=== PATIENT | female | born 1985 | race Caucasian/White ===

== ENCOUNTER 2023-03-08 17:51 | Emergency (ER) | payer OTHER, SELFPAY ==
[2023-03-08] VITALS (7 sets, daily range): BP systolic 127–161; BP diastolic 77–92; PULSE 65–108; RESP 12–22; TEMP 36.6; O2SAT 96–100; BMI 24.3
--- NOTE | 2023-03-08 18:16 | CT_ITS ---
The [address] [address] Patient Name: FELISA MADDEN MRN: [id number] date: 1985 Sex: F Assigned Patient Location: ER Current Patient Location: ED.MAIN Accession/Order Number: [id number] Exam Date: 03/08/2023 18:22 Report Date: 03/08/2023 19:12 At the request of: SUMMER QUIÑONES Procedure: CT head/brain wo con EXAMINATION: CT head/brain wo con, 03/08/2023 6:22 PM EDT HISTORY: Head injury COMPARISON: None. TECHNIQUE: CT scan of the head was performed without IV contrast. CT dose reduction technique was used, including Automated Exposure Control. FINDINGS: BRAIN PARENCHYMA/CSF SPACES: Ventricles are normal in size for age. There is an hypodense to isodense extra-axial collection along the left temporal parietal lobes measuring up to 6.5 mm in thickness compatible with subdural hematoma. This appears to be acute to subacute in age. There is mild mass effect with approximately 3 mm of midline shift to the right. PARANASAL SINUSES: Clear. SKULL BASE AND CALVARIUM: There is a fracture involving the right temporal parietal calvarium without displacement (series 3, image 22). EXTRACRANIAL SOFT TISSUES: Normal. CT/CT head/brain wo con IMPRESSION: Acute to subacute subdural hemorrhage along the left temporal and parietal lobes with mild mass effect. Approximately 3 mm of midline shift to the right. Fracture involving the right temporoparietal calvarium without displacement. Critical results were NOTIFIED by TELEPHONE BY Dr. Richard Stiles MD to Alivia PINA At 03/08/2023 7:10 PM EDT. Electronically authenticated by: RICHARD STILES Date: 03/08/2023 19:12
--- NOTE | 2023-03-08 18:17 | ED.FALL1 ---
Documented by User: Daniel Miller 04/08/23 10:36 HPI - Fall General Chief Complaint: Fall Stated Complaint: FALL Time Seen by Provider: 03/08/23 17:57 Source: patient Mode of arrival: Wheelchair Limitations: no limitations History of Present Illness HPI Narrative: patient was putting away dishes when she became dizzy and fell, striking the right side of her scalp against a cabinet. This occurred around noon today. She had headache initially but no LOC. She began dry-heaving around 4pm and the headache worsened so she came to the ED for evaluation. She has photophobia and some nausea. On February 13, the patient was jumping over a rope [facility] the [facility] and her foot caught and she fell forward and down several steps, hitting her head and sustaining a skull fracture. She was life-flighted to [facility] and stayed there until February 22, when she was discharged to a rehab facility. She just got released March 04. Related Data Home Medications Medication Instructions Recorded Confirmed acetaminophen 500 mg tablet 1,000 mg PO TID 03/08/23 03/08/23 albuterol sulfate 90 mcg/actuation 2 inh inhalation Q4H PRN shortness 03/08/23 03/08/23 aerosol inhaler of breath or wheezing dextroamphetamine-amphetamine 30 30 mg PO BID 03/08/23 03/08/23 mg tablet melatonin 5 mg tablet 5 mg PO .hs 03/08/23 03/08/23 methocarbamol 500 mg tablet 500 mg PO Q6H PRN spasms 03/08/23 03/08/23 sertraline 100 mg tablet 100 mg PO Q24H 03/08/23 03/08/23 tramadol 50 mg tablet 50 mg PO Q6H PRN pain 03/08/23 03/08/23 Allergies Allergy/AdvReac Type Severity Reaction Status Date / Time No Known Drug Allergies Allergy Verified 03/08/23 18:04 Exam Narrative Exam Narrative: Nurses note and vital signs reviewed and patient is not hypoxic. afebrile General: The patient appears well and in no apparent distress. Patient is resting comfortably on cart. GCS = 15. Skin: Warm, dry, no pallor noted. Head: Tenderness to the right frontal and parietal scalp. The remainder of the scalp and face are normocephalic, atraumatic Neck: Supple, trachea mid-line. Full ROM and no midline cervical spinal tenderness. Paracervical soft tissue tenderness noted. Eyes: PERRLA, EOMI ENT: TMs clear, no hemotympanum detected, no blood in posterior oropharynx Cardiovascular: Regular Rate and Rhythm Respiratory: Patient is in no distress, no accessory muscle use, lungs are clear to auscultation, no wheezing, rales or rhonchi Back: No thoracic or lumbar tenderness to palpation. Musculoskeletal: no sign of long bone fracture. Moves all four extremities in all modalities with 5/5 strength. Neurological: A&O x4, normal equal cabinet mounter strength, normal finger to nose, normal speech, normal coordination, normal motor, normal sensory. Psychiatric: Cooperative Constitutional Vital Signs, click to edit/add: Last Vital Signs Temp 98 F 03/08/23 17:59 Pulse 67 03/08/23 22:00 Resp 14 03/08/23 22:00 BP 127/77 H 03/08/23 23:00 Pulse Ox 96 03/08/23 22:00 O2 Del Method Room Air 03/08/23 17:59 Course Vital Signs Vital signs: Vital Signs Temperature 98 F 03/08/23 17:59 Pulse Rate 88 03/08/23 17:59 Respiratory Rate 18 03/08/23 17:59 Blood Pressure 161/85 H 03/08/23 17:59 Pulse Oximetry 98 03/08/23 17:59 Oxygen Delivery Method Room Air 03/08/23 17:59 Temperature 98 F 03/08/23 17:59 Pulse Rate 67 03/08/23 22:00 Respiratory Rate 14 03/08/23 22:00 Blood Pressure 127/77 H 03/08/23 23:00 Pulse Oximetry 96 03/08/23 22:00 Oxygen Delivery Method Room Air 03/08/23 17:59 MDM - Fall MDM Narrative Medical decision making narrative: Patient given ODT Zofran and sent for CT head without contrast. Result is currently pending. Patient signed out to Dr Ross at shift change to review the radiologist's reading and determine appropriate disposition. Lab Data Labs: Lab Results 03/08/23 Range/Units 19:40 WBC 7.3 (4.0-11.0) 10^3/uL RBC 4.24 (4.20-5.40) 10^6/uL Hgb 12.2 (12.0-16.0) g/dL Hct 38.5 (36.0-48.0) % MCV 90.8 (81.0-99.0) fL MCH 28.8 (26.7-34.0) pg MCHC 31.7 (29.9-35.2) g/dL RDW 13.2 (11.0-15.0) % Plt Count 411 (150-450) 10^3/uL MPV 8.9 L (9.5-13.5) fL Neut % (Auto) 74.3 (43.0-75.0) % Lymph % (Auto) 21.4 (20.5-60.0) % Banks % (Auto) 3.4 (1.7-12.0) % Eos % (Auto) 0.5 L (0.9-7.0) % Baso % (Auto) 0.3 (0.2-2.0) % Neut # (Auto) 5.4 (1.4-6.5) 10^3/uL Lymph # (Auto) 1.6 (1.2-3.8) 10^3/uL Banks # (Auto) 0.3 (0.3-0.8) 10^3/uL Eos # (Auto) 0.0 (0.0-0.7) 10^3/uL Baso # (Auto) 0.0 (0.0-0.1) 10^3/uL Abs Immat Gran (auto) 0.01 (0.00-0.03) 10^3/uL Imm/Tot Granulo (auto) 0.1 (0.0-0.5) % Sodium 140 (136-145) mmol/L Potassium 3.7 (3.5-5.1) mmol/L Chloride 105 (98-107) mmol/L Carbon Dioxide 25.3 (21.0-32.0) mmol/L Anion Gap 13.4 BUN 8.0 (7.0-18.0) mg/dL Creatinine 0.72 (0.55-1.02) mg/dL Est GFR ( Amer) >60 (>=60) Est GFR (Non-Af Amer) >60 (>=60) BUN/Creatinine Ratio 11.1 Glucose 116 H (74-106) mg/dL Calcium 9.1 (8.5-10.1) mg/dL Serum HCG, Qual Negative (NEGATIVE) Discharge Plan Discharge Chief Complaint: Fall Clinical Impression: Head injury, Acute subdural hematoma Patient Disposition: [facility] Discharge Location: [facility] Mode of Transportation: EMS Discharge Date/Time: 03/08/23 23:29 Documented by User: Lc Ross MD 03/08/23 21:38 HPI - Fall General Chief Complaint: Fall Stated Complaint: FALL Time Seen by Provider: 03/08/23 17:57 Related Data Home Medications Medication Instructions Recorded Confirmed acetaminophen 500 mg tablet 1,000 mg PO TID 03/08/23 03/08/23 albuterol sulfate 90 mcg/actuation 2 inh inhalation Q4H PRN shortness 03/08/23 03/08/23 aerosol inhaler of breath or wheezing dextroamphetamine-amphetamine 30 30 mg PO BID 03/08/23 03/08/23 mg tablet melatonin 5 mg tablet 5 mg PO .hs 03/08/23 03/08/23 methocarbamol 500 mg tablet 500 mg PO Q6H PRN spasms 03/08/23 03/08/23 sertraline 100 mg tablet 100 mg PO Q24H 03/08/23 03/08/23 tramadol 50 mg tablet 50 mg PO Q6H PRN pain 03/08/23 03/08/23 Allergies Allergy/AdvReac Type Severity Reaction Status Date / Time No Known Drug Allergies Allergy Verified 03/08/23 18:04 Exam Constitutional Vital Signs, click to edit/add: Last Vital Signs Temp 98 F 03/08/23 17:59 Pulse 67 03/08/23 22:00 Resp 14 03/08/23 22:00 BP 127/77 H 03/08/23 23:00 Pulse Ox 96 03/08/23 22:00 O2 Del Method Room Air 03/08/23 17:59 Course Vital Signs Vital signs: Vital Signs Temperature 98 F 03/08/23 17:59 Pulse Rate 88 03/08/23 17:59 Respiratory Rate 18 03/08/23 17:59 Blood Pressure 161/85 H 03/08/23 17:59 Pulse Oximetry 98 03/08/23 17:59 Oxygen Delivery Method Room Air 03/08/23 17:59 Temperature 98 F 03/08/23 17:59 Pulse Rate 67 03/08/23 22:00 Respiratory Rate 14 03/08/23 22:00 Blood Pressure 127/77 H 03/08/23 23:00 Pulse Oximetry 96 03/08/23 22:00 Oxygen Delivery Method Room Air 03/08/23 17:59 MDM - Fall MDM Narrative Medical decision making narrative: Patient given ODT Zofran and sent for CT head without contrast. Result is currently pending. Patient signed out to Dr Ross at shift change to review the radiologist's reading and determine appropriate disposition. Care transferred at change of shift. CT pending. CT today with findings of a acute to Subacute subdural hemorrhage along the left temporal and parietal lobes with mild mass effect. Fracture involving the right temporoparietal calvarium without displacement Patient states with her first injury bleeding and fracture were on the right. No past left sided bleed. patient treated with zofran and the nausea is better. Still has headache and photophobia. [facility] Trauma team paged. patient accepted for transfer to [facility]. Discussed with Trauma surgeon Dr Moffett and with ER physician Dr Andrade. Patient informed of the plan. Given dose of Fentanyl fo rher headace complaint Lab Data Labs: Lab Results 03/08/23 Range/Units 19:40 WBC 7.3 (4.0-11.0) 10^3/uL RBC 4.24 (4.20-5.40) 10^6/uL Hgb 12.2 (12.0-16.0) g/dL Hct 38.5 (36.0-48.0) % MCV 90.8 (81.0-99.0) fL MCH 28.8 (26.7-34.0) pg MCHC 31.7 (29.9-35.2) g/dL RDW 13.2 (11.0-15.0) % Plt Count 411 (150-450) 10^3/uL MPV 8.9 L (9.5-13.5) fL Neut % (Auto) 74.3 (43.0-75.0) % Lymph % (Auto) 21.4 (20.5-60.0) % Banks % (Auto) 3.4 (1.7-12.0) % Eos % (Auto) 0.5 L (0.9-7.0) % Baso % (Auto) 0.3 (0.2-2.0) % Neut # (Auto) 5.4 (1.4-6.5) 10^3/uL Lymph # (Auto) 1.6 (1.2-3.8) 10^3/uL Banks # (Auto) 0.3 (0.3-0.8) 10^3/uL Eos # (Auto) 0.0 (0.0-0.7) 10^3/uL Baso # (Auto) 0.0 (0.0-0.1) 10^3/uL Abs Immat Gran (auto) 0.01 (0.00-0.03) 10^3/uL Imm/Tot Granulo (auto) 0.1 (0.0-0.5) % Sodium 140 (136-145) mmol/L Potassium 3.7 (3.5-5.1) mmol/L Chloride 105 (98-107) mmol/L Carbon Dioxide 25.3 (21.0-32.0) mmol/L Anion Gap 13.4 BUN 8.0 (7.0-18.0) mg/dL Creatinine 0.72 (0.55-1.02) mg/dL Est GFR ( Amer) >60 (>=60) Est GFR (Non-Af Amer) >60 (>=60) BUN/Creatinine Ratio 11.1 Glucose 116 H (74-106) mg/dL Calcium 9.1 (8.5-10.1) mg/dL Serum HCG, Qual Negative (NEGATIVE) Discharge Plan Discharge Chief Complaint: Fall Clinical Impression: Head injury, Acute subdural hematoma Patient Disposition: [facility] Discharge Location: [facility] Mode of Transportation: EMS Discharge Date/Time: 03/08/23 23:29
[2023-03-08] MEDS: ONDANSETRON 4 MG RAPDIS TABLET SL (18:23)
[2023-03-08 19:54] LABS: Basophils Percent Auto 0.3 % (0.2-2.0); Eosinophils Percent Auto 0.5 % (0.9-7.0); Hematocrit 38.5 % (36.0-48.0); Hemoglobin 12.2 g/dL (12.0-16.0); Immature Granulocytes Abs Auto 0.01 10^3/uL (0.00-0.03); Immature Granulocytes Pct Auto 0.1 % (0.0-0.5); Lymphocytes Absolute Auto 1.6 10^3/uL (1.2-3.8); Lymphocytes Percent Auto 21.4 % (20.5-60.0); Mean Corpuscular HGB Conc 31.7 g/dL (29.9-35.2); Mean Corpuscular Hemoglobin 28.8 pg (26.7-34.0); Mean Corpuscular Volume 90.8 fL (81.0-99.0); Mean Platelet Volume 8.9 fL (9.5-13.5); Monocytes Absolute Auto 0.3 10^3/uL (0.3-0.8); Monocytes Percent Auto 3.4 % (1.7-12.0); Neutrophils Absolute Auto 5.4 10^3/uL (1.4-6.5); Neutrophils Percent Auto 74.3 % (43.0-75.0); Platelet Count 411 10^3/uL (150-450); Red Blood Count 4.24 10^6/uL (4.20-5.40); Red Cell Distribution Width 13.2 % (11.0-15.0); White Blood Count 7.3 10^3/uL (4.0-11.0)
[2023-03-08 20:06] LABS: Anion Gap 13.4; BUN Creatinine Ratio 11.1; Calcium 9.1 mg/dL (8.5-10.1); Carbon Dioxide 25.3 mmol/L (21.0-32.0); Chloride 105 mmol/L (98-107); Estimated GFR (African America >60 (>=60); Estimated GFR (Non-African Ame >60 (>=60); Glucose 116 mg/dL (74-106); Potassium 3.7 mmol/L (3.5-5.1); Sodium 140 mmol/L (136-145)
[2023-03-08 20:07] LABS: HCG Qualitative NEGATIVE (NEGATIVE)
[2023-03-08] MEDS: FENTANYL CITRATE/PF 100 MCG/2 ML VIAL 50 MCG IV (20:38)
== END 2023-03-08 23:29 | disposition short-term general hospital (02) ==
PROVIDERS: Emergency Provider Internal Medicine
DX: S06.5X0A Traumatic subdural hemorrhage without loss of consciousness, initial encounter (principal); W19.XXXA Unspecified fall, initial encounter; Z79.899 Other long term (current) drug therapy
CPT/HCPCS: 36415; 70450; 80048; 84703; 85025; 96374; 99285

== ENCOUNTER 2023-03-18 09:45 | Outpatient (RCR) | payer OTHER, SELFPAY | END 2023-05-25 16:21 | disposition home or self-care (01) | LOC: PT 09:45 | DX: S06.5X0D Traumatic subdural hemorrhage without loss of consciousness, subsequent encounter (principal); S02.91XD Unspecified fracture of skull, subsequent encounter for fracture with routine healing; R41.841 Cognitive communication deficit | CPT/HCPCS: 97110; 97112; 97140; 97163; 97530 ==

== ENCOUNTER 2023-03-18 09:58 | Outpatient (RCR) | payer OTHER, SELFPAY | END 2023-05-24 16:21 | disposition home or self-care (01) | LOC: OT 09:58 | DX: S06.5X0D Traumatic subdural hemorrhage without loss of consciousness, subsequent encounter (principal); S02.91XD Unspecified fracture of skull, subsequent encounter for fracture with routine healing; R41.841 Cognitive communication deficit | CPT/HCPCS: 97110; 97112; 97140; 97163; 97166; 97530 ==

== ENCOUNTER 2023-03-23 14:38 | Outpatient (RCR) | payer OTHER, SELFPAY | END 2023-05-29 16:21 | disposition home or self-care (01) | LOC: ST 14:38 | DX: S06.5X0D Traumatic subdural hemorrhage without loss of consciousness, subsequent encounter (principal); S02.91XD Unspecified fracture of skull, subsequent encounter for fracture with routine healing; R41.841 Cognitive communication deficit | CPT/HCPCS: 92507; 92523 ==

== ENCOUNTER 2024-09-25 13:20 | Outpatient (OUT) | payer OTHER, SELFPAY ==
--- NOTE | 2024-09-25 14:45 | P.CN_ITS ---
Consult Note: HPI Data of Consult Patient: new to practice Consult date: 09/25/24 Requesting Physician: Yaya Johnson MD Primary Care Provider: AMY NICHOLSON Consult Narrative Reason for consult: left arm pain Narrative: 39yof who presents for evaluation. notes persistence of left arm pain. had workplace injury in 07/16 and fractured radius and ulna. has not had surgery to repair. working with therapy now. has noted increasing shooting and stabbing pain in left forearm. has not tried any neuropathic meds. cc:: CC: Yaya Johnson MD Review of Systems ROS Status of ROS 10 or more systems reviewed and unremark able except as noted in history and below Meds Home Medications and Allergies Home Medications ?Medication ?Instructions ?Recorded ?Confirmed ?Type acetaminophen 500 mg tablet 1,000 mg PO TID 03/08/23 03/08/23 History albuterol sulfate 90 mcg/actuation 2 inh inhalation Q4H PRN shortness 03/08/23 03/08/23 History aerosol inhaler of breath or wheezing dextroamphetamine-amphetamine 30 30 mg PO BID 03/08/23 03/08/23 History mg tablet methocarbamol 500 mg tablet 500 mg PO Q6H PRN spasms 03/08/23 03/08/23 History buspirone 5 mg tablet 5 mg PO TID 09/25/24 09/25/24 History escitalopram oxalate 20 mg tablet 20 mg PO DAILY 09/25/24 09/25/24 History (Lexapro) fluticasone propionate 50 intranasal 09/25/24 History mcg/actuation nasal spray,suspension naproxen 500 mg tablet 500 mg PO BID 09/25/24 09/25/24 History pregabalin 75 mg capsule (Lyrica) 75 mg PO TID 09/25/24 09/25/24 History topiramate 100 mg tablet (Topamax) 100 mg PO DAILY 09/25/24 09/25/24 History Allergies Allergy/AdvReac Type Severity Reaction Status Date / Time No Known Drug Allergies Allergy Verified 03/08/23 18:04 Exam Narrative Exam Narrative: Psych-alert and oriented x 3.? Attentive and appropriate, constitutionally normal, displays normal mood and affect per situation.? There are no obvious deficits in memory, reasoning, or intellect.? Skin-no obvious rashes, bruising, or erythema noted to the patient's area of pain.? Extremities-upper extremities are warm with minimal edema and palpable pulses. L eft forearm covered with brace and bandages. Coordination remains intact.? Gait remains non-antalgic. Assessment and Plan Assessment and Plan (1) Nondisplaced comminuted fracture of shaft of ulna, left arm, initial encounter for closed fracture: Plan 39yof who presents for evaluation. failed conservative measures, as noted. given her symptoms and mechanism of injury, suspect that she has developed some degree of complex regional pain syndrome. discussed that would initially try lyrica 75mg tid and continue therapy. she may eventually be candidate for sympathetic nerve block of left upper extremity. she expressed understanding. follow up in 4-6 weeks.
== END 2024-09-25 13:21 | disposition home or self-care (01) ==
LOC: PM 13:21
PROVIDERS: PCP Family Medicine; Visit Provider Anesthesiology
DX: S52.255A Nondisplaced comminuted fracture of shaft of ulna, left arm, initial encounter for closed fracture (principal)
CPT/HCPCS: G0463

== ENCOUNTER 2024-10-30 13:00 | Outpatient (OUT) | payer OTHER, SELFPAY ==
--- OUTSIDE RECORDS SUMMARY | 2024-10-30 13:14 | XMS_ITS | CCD ---
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 Name Role Phone EITAN LEWIS KORTNEY Unavailable Steveab VALDEMAR Don Unavailable Unavailable ANDREW, DR CRISS Harris Consulting Unavailable REQUEST, NONE LISTED Primary Care Unavaila ble DIANE, JOSLYN Admitting Unavailable DIANE, JOSLYN Attending Unavailable DIANE, JOSLYN Consulting Unavailable REQUEST, NONE LISTED Primary Care Unavaila brendon CONTRERAS, JOSLNY Admitting Unavailable DIANE, JOSLYN Attending Unavailable JOSLYN CONTRERAS Consulting Unavailable ANA, DR KEEN Admitting Unavailable KARASIMichelle, DR KEEN Attending Unavailable KARNILSA, DR KEEN Consulting Unavailable REQUEST, NONE LISTED Primary Care Unavaila ble MISC, DR HOFFMAN Primary Care Unavailable DIANE, JOSLYN Admitting Unavailable DIANE, JOSLYN Attending Unavailable JOSLYN CONTRERAS Consulting Unavailable CHRISTIAN, DR CLAUDETTE Harris Consulting Unavailable DIANE, JOSLYN Primary Care Unavailable CHRISTIAN, DR CLAUDETTE Harris Admitting Unavailable CHRISTIAN, DR CLAUDETTE Harris Attending Unavailable CHRISTINA BURRIS Consulting Unavailable KARASIMichelle, DR KEEN Attending Unavailable KARASIK, DR KEEN Consulting Unavailable REQUEST, NONE LISTED Primary Care Unavaila ble KARNILSA, DR KEEN Admitting Unavailable KARASIMichelle, DR KEEN Attending Unavailable REQUEST, NONE LISTED Primary Care Unavaila ble PLUMMERDARI BURLESON Consulting Unavailable KARASIK, DR KEEN Admitting Unavailable KARASIK, DR KEEN Attending Unavailable KARASIMichelle, DR KEEN Admitting Unavailable KARASIMichelle, DR KEEN Consulting Unavailable REQUEST, NONE LISTED Primary Care Unavaila ble MANE RAMÍREZ Consulting Unavailable REQUEST, NONE LISTED Primary Care Unavaila ble JOSLYN CONTRERAS Consulting Unavailable DIANE, JOSLYN Admitting Unavailable JOSLYN CONTRERAS Attending Unavailable Valdemar MCCLENDON Primary Care Physician Nimisha Ramirez I Unavailable Unavailable LisyChantelle Aparna Unavailable Unavailable MarshallKaren de Unavailable Unavailable Primary Care Provider Unavailabl e NO FAMILY, PHYSICIAN Primary Care Unavailable Gerald Hines Attending Unavailable Keisha Jordan Consulting Unavailable Gerald Hines Admitting Unavailable Jessica Santiago Consulting Unavailable Macey Valverde Consulting Unavailable Dai Rubio Consulting Unavailable Hermila Santos Consulting Unavailable Shabnam Zamorano Consulting Unavailable Erika Garg Consulting Unavailable Nimisha Lopez Consulting Unavailable Kari Batres Consulting Unavailable Brent Langston Consulting Unavailable Guicho Mejia Consulting UnavailUmang Onelil Consulting Unavailable Mikaela Sellers Consulting Unavailable Deanna Nation Consulting Unavailable Zari Carroll Consulting Unavailable Raghavendra Long Consulting Unavailable Mirtha Christian Consulting Unavailable Hanna Bernardo Consulting Unavailable Raymon Joaquin Consulting Unavailable Angelo Hewitt Consulting Unavailable Man Gilliam Consulting Unavailable Mariel Guerrero Consulting Unavailable DoDavid simpson Consulting Unavailab Contreras Peralta Consulting Unavailable Ruel Hoffman Consulting Unavailable Royal Verduzco Consulting Unavailable Lexus Stock Consulting Unavailable Vu Dinero Consulting Unavailable Jt Muir Consulting Unavailable ObLaila blake Consulting Unavailable Juan Trevino Consulting Unavailable DaromarHowie Consulting Unavailable Venita Dodd Consulting Unavailable Mary Damon Consulting Unavailable Radha Almeida Consulting Unavailable Alfredo Manjarrez Consulting Unavailable Nataly Mullen Consulting Unavailable AFANEH, AMER GERMAN-HAFIZ Admitting Unavail able AFANEH, AMER GERMAN-HAFIZ Consulting Unavail able AFANEH, AMER GERMAN-HAFIZ Attending Unavail able ANA LOREDO Consulting Unavailable DARRIAN CAMPBELL Consulting Unavailable JOAN DAVIS Consulting Unavailable TARA ROCKWELL Consulting Unavailable YARA KING Referring Unavailable YARA KING Referring Unavailable FELISA SEGURA Admitting Unavailable FELISA SEGURA Attending Unavailable RADHIKA DOLAN Consulting Unavailable RENALDO THOMAS Consulting Unavailable VALDEMAR MCCLENDON Primary Care Unavailable SEAN MCKINLEY Attending Unav ailable KAPALICIA, Valdemar Garcia Attending Unavailable KAPALICIA, Valdemar Garcia Attending Unavailable KAPALICIA, Valdemar Garcia Attending Unavailable KAPValdemar VARGAS Attending Unavailable KAPALICIA, Valdemar Garcia Attending Unavailable KAPALICIA, Valdemar Garcia Attending Unavailable KAPValdemar VARGAS Attending Unavailable Yaya Johnson MD Attending Unavailable Allergies Allergy Classification Reported Allergen(s) Allergy Type Date of Onset Reaction(s) Facility (1 source) Desonide Drug Allergy 4 [facility] Repository (16 sources) cloNIDine; Translations: [clonidine] Drug Allergy Unknown (qualifier value) [facility] (16 sources) corn extract; Translations: [[place]] Drug Allergy Unknown (qualifier value) [facility] (16 sources) Pollen; Translations: [Pollen] Drug allergy Unknown (qualifier value) [facility] (17 sources) Wheat preparation; Translations: [Wheat] Drug Allergy Unknown (qualifier value) [facility] (15 sources) Milk Products 1 Drug allergy Unknown (qualifier value) [facility] Comment on above: MILK NOS (14 sources) busPIRone; Translations: [buspirone] Drug Allergy Other (qualifier value) [facility] Comment on above: [place] like a zombie (12 sources) Adhesive bandage; Translations: [Adhesive Bandage] Allergy to substance Blister of skin AND/OR mucosa (finding) [facility] (1 source) tape adhesive Propensity to adverse reactions Unknown [place] Other (1 source) dairy Propensity to adverse reactions Unknown [place] Other (1 source) busPIRone; Translations: [BuSpar] Drug Allergy [facility] Repository (1 source) Milk Products; Translations: [Milk Products] Propensity to adverse reactions (disorder) [facility] Repository Medications Current Medications Medication Drug Class(es) Dates Sig (Normalized) Sig (Original) acetaminophen 500 mg oral tablet (11 sources) Start: 04-22-2023 take 2 tablets by mouth three times daily as needed for pain Tylenol Extra Strength 500 mg oral tablet 1,000 mg = 2 tab(s), Oral, TID, PRN as needed for pain, # 100 tab(s), Refills(s) 5, Pharmacy: [facility]/pharmacy #[id number], 170, cm, 04/15/23 12:22:00 EDT, Height/Length Dosing, 75.3, kg, 04/15/23 12:22:00 EDT, Weight Dosing Start Date: 04/22/23 Status: Ordered Start: 03-09-2023 acetaminophen (TYLENOL) tablet 1,000 mg Start: 02-22-2023 End: 03-01-2023 take 2 tablets by mouth every eight hours acetaminophen (TYLENOL) 500 MG tablet Take 2 tablets by mouth every 8 (eight) hours for 7 days 42 tablet 0 02/22/2023 Active Start: 02-22-2023 acetaminophen (TYLENOL) tablet 975 mg Start: 02-14-2023 End: 02-22-2023 acetaminophen (TYLENOL) tabl et 1,000 mg [id number] 200 actuat albuterol 0.09 mg/actuat metered dose inhaler (5 sources) beta2-Adrenergic Agonist Start: 03-07-2021 take 2 puff(s) by inhalation every four hours for wheezing ProAir HFA 90 mcg/inh inhalation aerosol 2 puff(s), Inhalation, q4hr for wheezing, 8.5 gram, Refill(s) 11, [facility]/pharmacy #[id number], 165, cm, 03/07/21 13:17:00 EDT, Height/Length Dosing, 70, kg, 03/07/21 13:17:00 EDT, Weight Dosing Start Date: 03/07/21 Status: Ordered Start: 04-17-2019 albuterol 0.08 3% Inh Orquidea 3 mL 1 inh, NEB, QID Start Date: 04/17/19 Status: Ordered Start: 04-17-2019 albuterol 0.08 3% Inh Orquidea 3 mL 1 inh, NEB, QID Start Date: 04/17/19 Status: Ordered Albuterol Active Albuterol (Eqv-ProAir HFA) 90 mcg/inh inhalation aerosol (11 sources) Start: 08-01-2024 take 2 puff(s) by inhalation every four hours Albuterol (Eqv-ProAir HFA) 90 mcg/inh inhalation aerosol 2 puff(s), Inhalation, q4hr Cough, 18 gm, Refill(s) 11, [facility]/pharmacy #[id number], 170, cm, 08/01/24 9:18:00 EST, Height/Length Dosing, 70.8, kg, 08/01/24 9:18:00 EST, Weight Dosing Start Date: 08/01/24 Status: Ordered Start: 12-22-2022 take 2 puff(s) by in halation every four hours Albuterol (Eqv-ProAir HFA) 90 mcg/inh inhalation aerosol 2 puff(s), Inhalation, q4hr Cough, 18 gm, Refill(s) 11, [facility]/pharmacy #[id number], 170, cm, 12/22/22 11:14:00 EDT, Height/Length Dosing, 68.7, kg, 12/22/22 11:14:00 EDT, Weight Dosing Start Date: 12/22/22 Status: Ordered Start: 09-24-2022 Albuterol (Eqv -ProAir HFA) 90 mcg/inh inhalation aerosol Refill(s) 0 Start Date: 09/24/22 Status: Ordered amoxicillin 875 mg / clavulanate 125 mg oral tablet (2 sources) Penicillin-class Antibacterial Start: 09-24-2022 End: 10-04-2022 take 1 tablet by mouth every twelve hours Augmentin 875 mg oral tablet = 1 tab(s), Oral, q12hr, X 10 day(s), # 20 tab(s), Refills(s) 0, Pharmacy: [facility]/pharmacy #[id number], 170, cm, 09/24/22 8:58:00 EST, Height/Length Dosing, 65, kg, 09/24/22 8:58:00 EST, Weight Dosing Start Date: 09/24/22 Stop Date: 10/04/22 Status: Ordered Start: 07-15-2022 End: 07-22-2022 Augmentin 875 mg-125 mg Tab 1 tab(s), Oral, BID for 7 day(s), 14 tab(s), Refill(s) 0, [id number], 170, cm, 07/15/22 12:42:00 EST, Height/Length Dosing, 63.2, kg, 07/15/22 12:42:00 EST, Weight Dosing Start Date: 07/15/22 Stop Date: 07/22/22 Status: Ordered Amphetamine / Dextroamphetamine (2 sources) Central Nervous System Stimulant Start: 11-10-2021 Adderall 30 mg oral tablet 30 mg, 1 tab(s), Oral, BID, 60 tab(s), Refill(s) 0, 30 day supply with breakfast and lunch, [facility]/pharmacy #[id number], 165, cm, 08/12/21 8:54:00 EST, Height/Length Dosing, 68.1, kg, 08/12/21 8:54:00 EST, Weight Dosing Start Date: 11/10/21 Status: Ordered Adderall Active amphetamine aspartate 7.5 mg / amphetamine sulfate 7.5 mg / dextroamphetamine saccharate 7.5 mg / dextroamphetamine sulfate 7.5 mg oral tablet (17 sources) Central Nervous System Stimulant Start: 07-25-2024 Adderall 30 mg oral tablet 30 mg, 1 tab(s), Oral, BID, 60 tab(s), Refill(s) 0, 30 day supply with breakfast and lunch, [facility]/pharmacy #[id number], 170, cm, 05/02/24 10:34:00 EDT, Height/Length Dosing, 69.4, kg, 05/02/24 10:34:00 EDT, Weight Dosing Start Date: 07/25/24 Status: Ordered Start: 05-02-2024 Adderall 30 mg oral tablet 30 mg, 1 tab(s), Oral, BID, 60 tab(s), Refill(s) 0, 30 day supply with breakfast and lunch, [facility]/pharmacy #[id number], 170, cm, 05/02/24 10:34:00 EDT, Height/Length Dosing, 69.4, kg, 05/02/24 10:34:00 EDT, Weight Dosing Start Date: 05/02/24 Status: Ordered Start: 01-21-2024 Adderall 30 mg oral tablet 30 mg, 1 tab(s), Oral, BID, 60 tab(s), Refill(s) 0, 30 day supply with breakfast and lunch, [id number], 170, cm, 01/21/24 9:11:00 EDT, Height/Length Dosing, 74.4, kg, 01/21/24 9:11:00 EDT, Weight Dosing Start Date: 01/21/24 Status: Ordered Start: 11-04-2023 Adderall 30 mg oral tablet 30 mg, 1 tab(s), Oral, BID, 60 tab(s), Refill(s) 0, 30 day supply with breakfast and lunch, [id number], 170, cm, 10/14/23 9:03:00 EST, Height/Length Dosing, 75.3, kg, 10/14/23 9:03:00 EST, Weight Dosing Start Date: 11/04/23 Status: Ordered Start: 09-23-2023 Adderall 30 mg oral tablet 30 mg, 1 tab(s), Oral, BID, 60 tab(s), Refill(s) 0, 30 day supply with breakfast and lunch, [facility]/pharmacy #[id number], 170, cm, 07/09/23 13:24:00 EST, Height/Length Dosing, 78.1, kg, 07/09/23 13:24:00 EST, Weight Dosing Start Date: 09/23/23 Status: Ordered Start: 07-09-2023 Adderall 30 mg oral tablet 30 mg, 1 tab(s), Oral, BID, 60 tab(s), Refill(s) 0, 30 day supply with breakfast and lunch, [id number], 170, cm, 07/09/23 13:24:00 EST, Height/Length Dosing, 78.1, kg, 07/09/23 13:24:00 EST, Weight Dosing Start Date: 07/09/23 Status: Ordered Start: 04-12-2023 Adderall 30 mg oral tablet 30 mg, 1 tab(s), Oral, BID, 60 tab(s), Refill(s) 0, 30 day supply with breakfast and lunch, [id number], 170, cm, 04/08/23 7:53:00 EDT, Height/Length Dosing, 73, kg, 04/08/23 7:53:00 EDT, Weight Dosing Start Date: 04/12/23 Status: Ordered Start: 03-02-2022 Adderall 30 mg oral tablet 30 mg, 1 tab(s), Oral, BID, 60 tab(s), Refill(s) 0, 30 day supply with breakfast and lunch, [facility]/pharmacy #[id number], 170, cm, 12/22/22 11:14:00 EDT, Height/Length Dosing, 68.7, kg, 12/22/22 11:14:00 EDT, Weight Dosing Start Date: 02/26/23 Status: Ordered brompheniramine maleate 0.4 mg/ml / dextromethorphan hydrobromide 2 mg/ml / pseudoephedrine hydrochloride 6 mg/ml oral solution (1 source) alpha-Adrenergic Agonist, Uncompetitive T-exipnc-H-aspartate Receptor Antagonist, Sigma-1 Agonist Start: 12-20-2022 take 10 mL by mouth every six hours Ujipangod-Qbozykiz-RW 30-2-10 MG/5ML 10 mL Orally every 6 hours for 5 days Nov, Active 120 actuat budesonide 0.18 mg/actuat dry powder inhaler (4 sources) Corticosteroid Start: 11-26-2023 take 2 puff(s) by inhalation twice daily Pulmicort Flexhaler 180 mcg/inh Powder = 2 puff(s), Inhalation, BID, # 1 EA, Refills(s) 11, Pharmacy: [facility]/pharmacy #[id number], 170, cm, 11/26/23 8:20:00 EDT, Height/Length Dosing, 76.3, kg, 11/26/23 8:20:00 EDT, Weight Dosing Start Date: 11/26/23 Status: Ordered busPIRone hydrochloride 5 mg oral tablet (4 sources) Start: 05-19-2024 take 1 tablet by mouth three times daily busPIRone 5 mg Tab See Instructions, TAKE 1 TABLET BY MOUTH THREE TIMES A DAY, # 270 tab(s), Refills(s) 1, Pharmacy: [id number], 170, cm, 05/02/24 10:34:00 EDT, Height/Length Dosing, 69.4, kg, 05/02/24 10:34:00 EDT, Weight Dosing Start Date: 05/19/24 Status: Ordered Start: 01-21-2024 take 1 tablet by janie three times daily busPIRone 5 mg Tab 5 mg = 1 tab(s), Oral, TID, # 90 tab(s), Refills(s) 5, [id number] 170, cm, 01/21/24 9:11:00 EDT, Height/Length Dosing, 74.4, kg, 01/21/24 9:11:00 EDT, Weight Dosing Start Date: 01/21/24 Status: Ordered Start: 05-09-2021 take 1 tablet by [facility] twice daily busPIRone 30 mg oral tablet 30 mg = 1 tab(s), Oral, BID, # 60 tab(s), Refills(s) 5, [id number], 165, cm, 05/09/21 9:54:00 EDT, Height/Length Dosing, 68, kg, 05/09/21 9:54:00 EDT, Weight Dosing Start Date: 05/09/21 Status: Ordered cetirizine hydrochloride 10 mg oral capsule (1 source) Histamine-1 Receptor Antagonist Start: 05-09-2021 take 1 capsule by mouth once daily as needed cetirizine 10 mg oral capsule 10 mg = 1 cap(s), Oral, Daily, PRN for allergy symptoms, # 90 cap(s), Refills(s) 3, [id number] 165, cm, 05/09/21 9:54:00 EDT, Height/Length Dosing, 68, kg, 05/09/21 9:54:00 EDT, Weight Dosing Start Date: 05/09/21 Status: Ordered 0.3 ml enoxaparin sodium 100 mg/ml prefilled syringe (1 source) Low Molecular Weight Heparin Start: 02-15-2023 enoxaparin Sodium (LOVENOX) injection 30 mg escitalopram 20 mg oral tablet (5 sources) Serotonin Reuptake Inhibitor Start: 03-28-2024 take 1 tablet by mouth once daily Lexapro 20 mg Tab 20 mg = 1 tab(s), Oral, Daily, # 90 tab(s), Refills(s) 1, Pharmacy: [facility]/pharmacy #[id number], 170, cm, 01/21/24 9:11:00 EDT, Height/Length Dosing, 74.4, kg, 01/21/24 9:11:00 EDT, Weight Dosing Start Date: 03/28/24 Status: Ordered Start: 10-14-2023 take 1 tablet by janie th once daily Lexapro 20 mg Tab 20 mg = 1 tab(s), Oral, Daily, # 90 tab(s), Refills(s) 1, [id number] 170, cm, 10/14/23 9:03:00 EST, Height/Length Dosing, 75.3, kg, 10/14/23 9:03:00 EST, Weight Dosing Start Date: 10/14/23 Status: Ordered famotidine 40 mg oral tablet (15 sources) Histamine-2 Receptor Antagonist Start: 05-02-2024 take 1 tablet by mouth once daily at bedtime Pepcid 40 mg Tab 40 mg = 1 tab(s), Oral, Once a day (at bedtime), # 90 tab(s), Refills(s) 4, [id number] 170, cm, 05/02/24 10:34:00 EDT, Height/Length Dosing, 69.4, kg, 05/02/24 10:34:00 EDT, Weight Dosing Start Date: 05/02/24 Status: Ordered Start: 01-21-2024 take 1 tablet by janie once daily at bedtime Pepcid 40 mg Tab 40 mg = 1 tab(s), Oral, Once a day (at bedtime), # 90 tab(s), Refills(s) 3, [id number], 170, cm, 01/21/24 9:11:00 EDT, Height/Length Dosing, 74.4, kg, 01/21/24 9:11:00 EDT, Weight Dosing Start Date: 01/21/24 Status: Ordered Start: 03-12-2022 take 1 tablet by janie th once daily at bedtime Pepcid 40 mg Tab 40 mg = 1 tab(s), Oral, Once a day (at bedtime), # 90 tab(s), Refills(s) 3, Pharmacy: [facility], 165, cm, 03/12/22 8:15:00 EDT, Height/Length Dosing, 62.6, kg, 03/12/22 8:15:00 EDT, Weight Dosing Start Date: 03/12/22 Status: Ordered Start: 03-07-2020 take 1 tablet by janie th once daily at bedtime Pepcid 40 mg Tab 40 mg = 1 tab(s), Oral, Once a day (at bedtime), # 90 tab(s), Refills(s) 0, Pharmacy: [facility]/pharmacy #[id number], 165, cm, 02/12/20 8:36:00 EDT, Height/Length Measured, 78, kg, 02/12/20 8:36:00 EDT, Weight Measured Start Date: 03/07/20 Status: Ordered Flonase 0.05 mg/inh nasal sp ray (2 sources) Start: 09-03-2021 Flonase 0.05 m g/inh nasal spray 2 spray(s), Nasal, Daily, 16 gram, Refill(s) 0, each nostril, [facility]/pharmacy #[id number], 165, cm, 08/12/21 8:54:00 EST, Height/Length Dosing, 68.1, kg, 08/12/21 8:54:00 EST, Weight Dosing Start Date: 09/03/21 Status: Ordered fludrocortisone acetate 0.1 mg oral tablet (5 sources) Start: 03-12-2023 fludrocortison e 0.1 mg Tab Refills(s) 0 Start Date: 03/12/23 Status: Ordered Start: 03-10-2023 End: 04-09-2023 take 0.5 tablet by mouth once daily in the morning fludrocortisone (FLORINEF) 0.1 MG tablet Take 0.5 tablets by mouth every morning 15 tablet 0 03/10/2023 04/09/2023 Active Start: 03-10-2023 fludrocortison e (FLORINEF) tablet 0.1 mg gabapentin 300 mg oral capsule (1 source) Anti-epileptic Agent Start: 03-09-2023 gabapenti n (NEURONTIN) capsule 300 mg ibuprofen 400 mg oral tablet (2 sources) Nonsteroidal Anti-inflammatory Drug Start: 02-16-2023 End: 02-17-2023 ibuprofen (ADVIL;MOTRIN) tablet 400 mg lidocaine 0.05 mg/mg medicated patch (2 sources) Antiarrhythmic, Amide Local Anesthetic Start: 04-15-2023 lidocaine Top 5% film Patch 1 patch(es), Topical, Daily, 3 EA, Refill(s) 5, apply 12 hours on and 12 hours off daily, [id number] 170, cm, 04/15/23 12:22:00 EDT, Height/Length Dosing, 75.3, kg, 04/15/23 12:22:00 EDT, Weight Dosing Start Date: 04/15/23 Status: Ordered loratadine 10 mg oral tablet (16 sources) Start: 01-21-2024 take 1 tablet by mouth once daily Claritin 10 mg Tab 10 mg = 1 tab(s), Oral, Daily, # 30 tab(s), Refills(s) 3, [id number] 170, cm, 01/21/24 9:11:00 EDT, Height/Length Dosing, 74.4, kg, 01/21/24 9:11:00 EDT, Weight Dosing Start Date: 01/21/24 Status: Ordered Start: 07-09-2023 take 1 tablet by janie once daily Claritin 10 mg Tab 10 mg = 1 tab(s), Oral, Daily, # 30 tab(s), Refills(s) 3, [id number] 170, cm, 07/09/23 13:24:00 EST, Height/Length Dosing, 78.1, kg, 07/09/23 13:24:00 EST, Weight Dosing Start Date: 07/09/23 Status: Ordered Start: 04-02-2023 take 1 tablet by janie once daily Claritin 10 mg Tab 10 mg = 1 tab(s), Oral, Daily, # 30 tab(s), Refills(s) 0, Pharmacy: [facility]/pharmacy #[id number], 170, cm, 03/12/23 14:43:00 EDT, Height/Length Dosing, 67.6, kg, 03/12/23 14:43:00 EDT, Weight Dosing Start Date: 04/02/23 Status: Ordered Start: 05-25-2019 take 1 tablet by janie once daily Claritin 10 mg Tab 10 mg = 1 tab(s), Oral, Daily, # 30 tab(s), Refills(s) 0, [id number] Start Date: 05/25/19 Status: Ordered Meclizine (6 sources) Antiemetic Start: 03-12-2023 meclizine 25 m g Tab Refills(s) 0 Start Date: 03/12/23 Status: Ordered Start: 03-09-2023 End: 03-19-2023 take 1 tablet by mouth three times daily as needed for dizziness meclizine (ANTIVERT) 25 MG tablet Take 1 tablet by mouth 3 times daily as needed for Dizziness 15 tablet 0 03/09/2023 03/19/2023 Active Start: 02-19-2023 End: 02-19-2023 meclizine (ANTIVERT) tablet 12.5 mg Start: 02-16-2023 End: 02-16-2023 meclizine (ANTIVERT) tablet 12.5 mg melatonin 5 mg oral tablet (10 sources) Start: 03-12-2023 take 1 tablet by mouth once daily at bedtime [facility] MELATONIN 5 MG TABLET TAKE 1 TABLET BY MOUTH AT BEDTIME DAILY Start Date: 03/12/23 Status: Ordered take 5 mg by mouth once daily me latonin 3 MG TABS tablet Take 5 mg by mouth daily 0 Active methocarbamol 750 mg oral tablet (12 sources) Muscle Relaxant Start: 05-02-2024 take 1 tablet by mouth three times daily as needed for muscle spasms Robaxin-750 oral tablet 1,500 mg = 2 tab(s), Oral, TID, PRN Spasm, # 60 tab(s), Refills(s) 3, [id number] 170, cm, 05/02/24 10:34:00 EDT, Height/Length Dosing, 69.4, kg, 05/02/24 10:34:00 EDT, Weight Dosing Start Date: 05/02/24 Status: Ordered Start: 01-21-2024 take 1 tablet by janie th three times daily as needed for muscle spasms Robaxin-750 oral tablet 1,500 mg = 2 tab(s), Oral, TID, PRN Spasm, # 60 tab(s), Refills(s) 2, Pharmacy: [facility]/pharmacy #[id number], 170, cm, 01/21/24 9:11:00 EDT, Height/Length Dosing, 74.4, kg, 01/21/24 9:11:00 EDT, Weight Dosing Start Date: 01/21/24 Status: Ordered Start: 11-26-2023 take 1 tablet by janie th three times daily as needed for muscle spasms Robaxin-750 oral tablet 1,500 mg = 2 tab(s), Oral, TID, PRN Spasm, # 60 tab(s), Refills(s) 2, Pharmacy: [facility]/pharmacy #[id number], 170, cm, 11/26/23 8:20:00 EDT, Height/Length Dosing, 76.3, kg, 11/26/23 8:20:00 EDT, Weight Dosing Start Date: 11/26/23 Status: Ordered Start: 04-02-2023 take 1 tablet by janie four times daily methocarbamol 500 mg Tab 500 mg = 1 tab(s), Oral, QID, # 100 tab(s), Refills(s) 0, Pharmacy: [facility]/pharmacy #[id number], 170, cm, 03/12/23 14:43:00 EDT, Height/Length Dosing, 67.6, kg, 03/12/23 14:43:00 EDT, Weight Dosing Start Date: 04/02/23 Status: Ordered Start: 03-09-2023 methocarbamol (ROBAXIN) tablet 750 mg Start: 02-16-2023 End: 03-01-2023 take 1 tablet by mouth four times daily as needed for muscle spasms methocarbamol (ROBAXIN) 500 MG tablet Take 1 tablet by mouth 4 times daily as needed (muscle spasms) 28 tablet 0 02/22/2023 03/01/2023 Active montelukast (1 source) Leukotriene Receptor Antagonist Montelukast Sodium Active ondansetron (ZOFRAN-ODT) disintegrating tablet 4 mg (1 source) Start: ondansetron (ZOFRAN-ODT) disintegrating tablet 4 mg oseltamivir 75 mg oral capsule (1 source) Neuraminidase Inhibitor Start: take 1 capsule by mouth every twelve hours Oseltamivir Phosphate 75 MG 1 capsule Orally Twice a day for 5 day(s) Nov, Active oxyCODONE hydrochloride 5 mg oral tablet (7 sources) Opioid Agonist Start: 07-18-2 023 oxyCODONE (ROXICODONE) immediate release tablet 5 mg Start: 02-17-2023 End: 02-25-2023 take 1 tablet by mouth every eight hours as needed for pain oxyCODONE (ROXICODONE) 5 MG immediate release tablet Indications: SDH (subdural hematoma) (HCC) Take 1 tablet by mouth every 8 hours as needed for Pain for up to 3 days. Max Daily Amount: 15 mg 9 tablet 0 02/22/2023 02/25/2023 Active Start: 02-15-2023 End: 02-16-2023 oxyCODONE (ROXICODONE) immed iate release tablet 5 mg Start: 02-14-2023 End: 02-14-2023 oxyCODONE (ROXICODONE) immed iate release tablet 5 mg ProAir HFA 90 mcg/inh inhalation aerosol (2 sources) Start: 03-07-2021 take 2 puff(s) by inhalation every four hours for wheezing ProAir HFA 90 mcg/inh inhalation aerosol 2 puff(s), Inhalation, q4hr for wheezing, 8.5 gram, Refill(s) 11, [facility]/pharmacy #[id number], 165, cm, 03/07/21 13:17:00 EDT, Height/Length Dosing, 70, kg, 03/07/21 13:17:00 EDT, Weight Dosing Start Date: 03/07/21 Status: Ordered sennosides, correction 8.6 mg oral tablet (1 source) Start: 03-09-2023 senna (SENOKOT ) tablet 8.6 mg sertraline 100 mg oral tablet (12 sources) Serotonin Reuptake Inhibitor Start: 07-09-2023 take 1 tablet by mouth once daily Zoloft 100 mg Tab 100 mg = 1 tab(s), Oral, Daily, # 90 tab(s), Refills(s) 3, Pharmacy: [facility]/pharmacy #[id number], 170, cm, 07/09/23 13:24:00 EST, Height/Length Dosing, 78.1, kg, 07/09/23 13:24:00 EST, Weight Dosing Start Date: 07/09/23 Status: Ordered Start: 02-14-2023 sertraline (ZO LOFT) tablet 25 mg Start: 06-23-2022 take 1 tablet by janie th once daily Zoloft 100 mg Tab 100 mg = 1 tab(s), Oral, Daily, # 90 tab(s), Refills(s) 3, [id number] 170, cm, 07/15/22 12:42:00 EST, Height/Length Dosing, 63.2, kg, 07/15/22 12:42:00 EST, Weight Dosing Start Date: 09/08/22 Status: Ordered Zoloft Active topiramate 100 mg oral tablet (7 sources) Start: 05-18-2024 take 1 tablet by mouth once daily topiramate 100 mg Tab See Instructions, TAKE 1 TABLET BY MOUTH EVERY DAY, # 90 tab(s), Refills(s) 1, Pharmacy: [facility] STORE [id number], 170, cm, 05/02/24 10:34:00 EDT, Height/Length Dosing, 69.4, kg, 05/02/24 10:34:00 EDT, Weight Dosing Start Date: 05/18/24 Status: Ordered Start: 11-26-2023 [facility] Top[facility] mg Tab 100 mg = 1 tab(s), Oral, Daily, # 90 tab(s), Refills(s) 1, [id number] 170,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 Parrott) 1 Sprays Nasal Inhalation 2 times a day each nostril Contact prescribing physician if questions or concerns Unchanged loratadine (Claritin 10 mg Tab) 1 Tablets By Mouth Every day Allergy to pollen Upper respiratory tract hypersensitivity reaction, site unspecified Contact prescribing physician if questions or concerns Unchanged methocarbamol (Robaxin-750 oral tablet) 2 Tablets By Mouth 3 times a day as needed for Spasm Spasm of back muscles Contact prescribing physician if questions or concerns Unchanged Misc Prescription (CVS MELATONIN 5 MG TABLET) TAKE 1 TABLET BY MOUTH AT BEDTIME DAILY Contact prescribing physician if questions or concerns Unchanged topiramate (topiramate 100 mg Tab) See instructions TAKE 1 TABLET BY MOUTH EVERY DAY Contact prescribing physician if questions or concerns Pharmacy Information [facility]/pharmacy #[id number]: [address], [place] [id number] [phone] Allergies CloNIDine HCl (Unknown) Pollen (Unknown) Adhesive Bandage (Blister) BuSpar (Other) [place] (Unknown) Milk Products (Unknown) Wheat (Unknown) Problems Ongoing - Any problem that you are currently receiving treatment for. Acquired nasal deformity (Septal whole w increasing epistaxis) ADHD (attention deficit hyperactivity disorder), inattentive type Allergy to pollen Cerebral concussion Cervical strain Childhood asthma Cigarette smoker Common migraine Compound nevus of back COVID-19 vaccine dose declined Decreased hearing of right ear Fracture of temporal bone with routine healing Generalized anxiety disorder GERD with esophagitis H/O fracture of skull Head ache Lumbar herniated disc (more content not included)... Normal [facility] Family Medicine Office/Clini c Noteon 08-01-2024 Family Medicine Office/Clinic Note Family Medicine Office/Clinic Note Chief Complaint Patient here for 3 month f/u on ADHD, anxiety, gerd. States two weeks ago she broke her left arm at work. History of Present Illness Patient is currently taking prescribed medication. This dose is very effective. Medication side effects none. Requesting any medication changes, none. Drug holidays are not taken. Improvements have been made in work,have been made in attentiveness, have been made in hyperactivity,have been made in impulsivity, have been made in school/work behavior, have been made in home behavior, and have been made in organizational skills. OARRS Verification: OARRS report reviewed. No problems noted (Y/N). Broke arm 2 weeks ago while at work, orthopedic surgeon following, improving nicely. Asthma doing well Review of Systems PHQ Score Initial Depression Screen Score: 0 SCORE ROS - Provider Constitutional: no fever, no chills, no sweats, no weakness. Skin: no Jaundice, no rash, no lesions, no petechiae. ENMT: no ear pain, no sore throat, no congestion, no hoarseness. Respiratory: no shortness of breath, no cough, no orthopnea, no wheezing. Cardiovascular: no chest pain, no palpitations, no edema. Gastrointestinal: no nausea, no vomiting, no diarrhea, no GI bleeding.no constipationnoheartburn Genitourinary: no dysuria, no hematuria, no discharge, no pain.nofreq/urgency Musculoskeletal: no back pain, no trauma.nojoint pain Neurologic: no headache, no dizziness, no numbness, no weakness. Psychiatric: no sleeping problems, no irritability, no mood swings/depression. Heme/Lymph: no bleeding tendency, no bruising tendency, no petechiae, no swollen lymph nodes no Allergy/Imunology no seasonal allergies, no food allergies, no recurrent infections, no impaired immunity. Additional ROS info: Except as noted in the above Review of Systems and in the History of Present Illness all other systems have been reviewed and are negative or noncontributory. Physical Exam Vitals & Measurements T: 36.5 ???C(Oral) HR: 73(Peripheral) RR: 16 BP: 110/68 SpO2: 99% HT: 67 in HT: 170 cm WT: 70.8 kg WT: 156.087 lb BMI: 24.5 General: Well developed, well nourished, in no acute distress Mouth: Mucous membranes moist. Normal oropharynx, and posterior pharynx without lesions or exudates. Tongue normal Neck: Neck supple. No masses or palpable cervical nodes. Trachea midline. Thyroid without nodules, masses, tenderness, or enlargement Lungs: Normal respiratory effort and clear to auscultation Cardio: Regular rate and rhythm, normal S1 and S2, no murmur, no rub Abdomen: Soft, non-distended, non-tender. no G/R/S/Masses Musculoskeletal: No deformity or scoliosis noted. Normal range of motion. Joints normal. No erythema, edema, effusion, or ecchymosis Extremity: No clubbing, cyanosis, edema, or deformity, with normal ROM in both upper and lower bilateral extremities Neurologic: Grossly normal Skin: No rashes, ulcerations, or suspicious lesions Mental Status: Alert and oriented x3. Normal mood and affect Assessment/Plan 1. ADHD (attention deficit hyperactivity disorder), inattentive type (F90.0: Attention-deficit hyperactivity disorder, predominantly inattentive type) Doing well with Adderall 30 mg p.o. twice daily 2. Cigarette smoker (F17.210: Nicotine dependence, cigarettes, uncomplicated) We strongly recommend to quit tobacco use. Cigarette smoking harms nearly every organ of the body, causes many diseases, and reduces the health of smokers in general. Quitting smoking lowers your risk for smoking-related diseases and can add years to your life. We encourage you to visit www.smokefree.gov access to helpful resources including free telephone support. If you decide on prescription treatment to help you quit, we would be happy to provide these. 3. Common migraine (G43.009: Migraine without aura, not intractable, without status migrainosus) Good diet and exercise along with Lexapro 20 mg p.o. daily and Toprol may 100 mg p.o. daily 4. GERD with esophagitis (K21.00: Gastro-esophageal reflux disease with esophagitis, without bleeding) Diet and exercise and famotidine 40 mg p.o. daily 5. Moderate persistent asthma with exacerbation (J45.41: Moderate persistent asthma with (acute) exacerbation) Pulmicort flex inhaler 2 puffs p.o. twice daily and albuterol 2 puffs p.o. every 4 as needed 6. Generalized anxiety disorder (F41.1: Generalized anxiety disorder) Diet and exercise, working Lexapro 20 mg p.o. Today Orders: albuterol, 2 puff(s), Inhalation, q4hr Cough, 18 gm, Refill(s) 11, [facility]/pharmacy #[id number], 170, cm, 08/01/24 9:18:00 EST, Height/Length Dosing, 70.8, kg, 08/01/24 9:18:00 EST, Weight Dosing Review of Prior External Notes and Results:The following documents and/or results were reviewed on this visit which are external to my provider group and/or outside of my specialty: Labs: _, _, _, _, _, _ Radiology: _, _, _, _, _, _, Records Reviewed: OARRS Reviewed, (more content not included)... Normal [facility] Comment on above: Result Comment: Elec tronically Signed By: BHARAT MOREJON FAAFP, Valdemar Hall\\Date and Time Signed: 08/01/24 10:08 EST CBC AND AUTO DIFFon 07-17-20 ABSOLUTE BASOPHIL 0.0 X10E9/L Normal 0.0-0.2 [facility] Comment on above: Performed By: #### C BCA, PINR, CMP, 2157-01 #### [facility] ([id number]) [address] [place] [address] 66275 ABSOLUTE NEUTROPHIL 5.4 X10E9/L Normal 1.5-6.[address] [facility] Comment on above: Performed By: #### Miracle BCA, PINR, [facility], 2157-01 #### [facility] ([id number]) [address] [place] [address] 65066 Basophils/100 WBC (Bld) 0.3 % Normal [facility] Comment on above: Performed By: #### Miracle BCA, PINR, CMP, 2157-01 #### [facility] ([id number]) [address] [place] [address] 31148 Eosinophils (Bld) [#/Vol] 0.2 10*3/uL Normal 0.0-0.4 [facility] Comment on above: Performed By: #### Miracle BCA, PINR, CMP, 2157-01 #### [facility] ([id number]) [address] [place] [address] 05087 Eosinophils/100 WBC (Bld) 2.9 % Normal [facility] Comment on above: Performed By: #### C KESHA PINR, CMP, 2157-01 #### [facility] ([id number]) [address] [place] [address] 21530 Erythrocyte distribution width (RBC) [Ratio] 13.9 % Normal 11.5-15.0 [facility] Comment on above: Performed By: #### Miracle REBOLLEDO PINR, CMP, 2157-01 #### [facility] ([id number]) [address] [place] [address] 21298 Hematocrit (Bld) [Volume fraction] 36.9 % Normal 35-47 [facility] Comment on above: Performed By: #### Miracle REBOLLEDO, PINR, CMP, 2157-01 #### [facility] ([id number]) [address] [place] [address] 04267 Hemoglobin (Bld) [Mass/Vol] 12.2 g/dL Normal 11.7-15.5 [facility] Comment on above: Performed By: #### Miracle REBOLLEDO, PINR, CMP, 2157-01 #### [facility] ([id number]) [address] [place] [address] 07283 Lymphocytes (Bld) [#/Vol] 1.4 10*3/uL Normal 1.0-3.5 [facility] Comment on above: Performed By: #### C BCA, PINR, CMP, 2157-01 #### [facility] ([id number]) [address] [place] [address] 10669 Lymphocytes/100 WBC (Bld) 19.0 % Normal [facility] Comment on above: Performed By: #### Miracle BCA, PINR, CMP, 2157-01 #### [facility] ([id number]) [address] [place] [address] 13438 MCH (RBC) [Entitic mass] 28.6 pg Normal 27-34 [facility] Comment on above: Performed By: #### C KESHA, PINR, CMP, 2157-01 #### [facility] ([id number]) [address] [place] [address] 52869 MCHC (RBC) [Mass/Vol] 33.0 g/dL Normal 32-36 [facility] Comment on above: Performed By: #### C KESHA, PINR, CMP, 2157-01 #### [facility] ([id number]) [address] [place] [address] 07924 MCV (RBC) [Entitic vol] 87 fL Normal 80-100 [facility] Comment on above: Performed By: #### C KESHA, PINR, CMP, 2157-01 #### [facility] ([id number]) [address] [place] [address] 96338 Monocytes (Bld) [#/Vol] 0.4 10*3/uL Normal 0-0.9 [facility] Comment on above: Performed By: #### C KESHA, PINR, CMP, 2157-01 #### [facility] ([id number]) [address] [place] [address] 20141 Monocytes/100 WBC (Bld) 5.0 % Normal [facility] Comment on above: Performed By: #### C BCA, PINR, CMP, 2157-01 #### [facility] ([id number]) [address] [place] [address] 43940 Neutrophils/100 WBC (Bld) 72.8 % Normal [facility] Comment on above: Performed By: #### C KESHA, PINR, CMP, 2157-01 #### [facility] ([id number]) [address] [place] [address] 45155 Platelet mean volume (Bld) [Entitic vol] 7.6 fL Normal 7-12 [facility] Comment on above: Performed By: #### C BCA, PINR, CMP, 2157-01 #### [facility] ([id number]) [address] [place] [address] 68745 Platelets (Bld) [#/Vol] 345 10*3/uL Normal 150-450 [facility] Comment on above: Performed By: #### C BCA, PINR, CMP, 2157-01 #### [facility] ([id number]) [address] [place] [address] 36340 RBC COUNT 4.26 X10E12/L Normal 3.80-5.20 [facility] Comment on above: Performed By: #### C BCA, PINR, CMP, 2157-01 #### [facility] ([id number]) [address] [place] [address] 29447 WBC (Bld) [#/Vol] 7.4 10*3/uL Normal 4.0-11.0 [facility] Comment on above: Performed By: #### C BCA, PINR, CMP, 2157-01 #### [facility] ([id number]) [address] [place] [address] 30016 CK [Catalytic activity/Vol]o n 07-17-2024 CPK 108 U/L Normal 24-170 [facility] Comment on above: Performed By: #### C BCA, PINR, CMP, 2157-01 #### [facility] ([id number]) [address] [place] [address] 04402 COMPREHENSIVE METABOLIC PANE Mariano 07-17-2024 Albumin [Mass/Vol] 3.8 g/dL Normal 3.2-5.3 [facility] Comment on above: Performed By: #### C BCA, PINR, CMP, 2157-01 #### [facility] ([id number]) [address] [place] [address] 59922 ALP [Catalytic activity/Vol] 108 U/L Normal 39-130 [facility] Comment on above: Performed By: #### C BCA, PINR, CMP, 2157-01 #### [facility] ([id number]) [address] [place] [address] 72990 ALT [Catalytic activity/Vol] 40 U/L High 0-31 [facility] Comment on above: Performed By: #### C BCA, PINR, CMP, 2157-01 #### [facility] ([id number]) [address] [place] [address] 43228 Anion gap [Moles/Vol] 4 mmol/L Low 5-15 [facility] Comment on above: Performed By: #### C BCA, PINR, CMP, 2157-01 #### [facility] ([id number]) [address] [place] [address] 35358 AST [Catalytic activity/Vol] 29 U/L Normal 0-41 [facility] Comment on above: Performed By: #### C BCA, PINR, CMP, 2157-01 #### [facility] ([id number]) [address] [place] [address] 70637 Bilirubin [Mass/Vol] 0.3 mg/dL Normal 0.3-1.2 [facility] Comment on above: Performed By: #### C BCA, PINR, CMP, 2157-01 #### [facility] ([id number]) [address] [place] [address] 44736 Calcium [Mass/Vol] 8.9 mg/dL Normal 8.5-10.5 [facility] Comment on above: Performed By: #### C BCA, PINR, CMP, 2157-01 #### [facility] ([id number]) [address] [place] [address] 90889 Chloride [Moles/Vol] 106 mmol/L Normal 98-109 [facility] Comment on above: Performed By: #### C BCA, PINR, CMP, 2157-01 #### [facility] ([id number]) [address] [place] [address] 85935 CO2 [Moles/Vol] 22 mmol/L Normal 22-32 [facility] Comment on above: Performed By: #### C BCA, PINR, CMP, 2157-01 #### [facility] ([id number]) [address] [place] [address] 26770 Creatinine [Mass/Vol] 0.78 mg/dL Normal 0.40-1.00 [facility] Comment on above: Result Comment: METH OD TRACEABLE TO IDMS STANDARD Performed By: #### C KESHA, PINR, CMP, 2157-01 #### [facility] ([id number]) [address] [place] [address] 91376 eGFR (CKD-EPI) NON-RACE DEPENDENT >90 Normal >59 [facility] Comment on above: Result Comment: Reported eGFR is based on the CKD-EPI 2020 equation that does not use a race coefficient. Performed By: #### C BCA, PINR, CMP, 2157-01 #### [facility] ([id number]) [address] [place] [address] 62489 Glucose [Mass/Vol] 99 mg/dL Normal 65-99 [facility] Comment on above: Performed By: #### C BCA, PINR, CMP, 2157-01 #### [facility] ([id number]) [address] [place] [address] 17240 Potassium [Moles/Vol] 3.5 mmol/L Normal 3.5-5.0 [facility] Comment on above: Performed By: #### C BCA, PINR, CMP, 2157-01 #### [facility] ([id number]) [address] [place] [address] 18790 Protein [Mass/Vol] 7.9 g/dL Normal 6.0-8.0 [facility] Comment on above: Performed By: #### C KESHA, PINR, CMP, 2157-01 #### [facility] ([id number]) [address] [place] [address] 31705 Sodium [Moles/Vol] 132 mmol/L Low 134-146 [facility] Comment on above: Performed By: #### C KESHA, PINR, CMP, 2157-01 #### [facility] ([id number]) [address] [place] [address] 53042 Urea nitrogen [Mass/Vol] 10 mg/dL Normal 5-23 [facility] Comment on above: Performed By: #### C KESHA PINR, CMP, 2157-01 #### [facility] ([id number]) [address] [place] [address] 39418 PROTIME AND INRon 07-17-2024 INR Coag (PPP) [Relative time] 1.0 {INR} Normal 0.8-1.1 [facility] Comment on above: Performed By: #### C KESHA, PINR, CMP, 2157-01 #### [facility] ([id number]) [address] [place] [address] 49021 PT Coag (PPP) [Time] 11.7 s Normal 9.8-13.2 [facility] Comment on above: Result Comment: NEW REFERENCE RANGE Performed By: #### Miracle REBOLLEDO PINR, CMP, 2157-01 #### [facility] ([id number]) [address] [place] [address] 89067 XR FOREARM LT 2 VWSon 2023 XR FOREARM LT 2 VWS XR FOREARM LT 2 VWS 2 VIEWS LEFT FOREARM HISTORY: Injury, pain COMPARISON: None IMPRESSION: * Acute nondisplaced mildly comminuted fractures of the mid shafts of both the left radius and ulna. Finalized by Mina Gilbert MD on 07/17/2024 3:49 AM Normal [facility] XR HAND LT 2 VWSon 4 XR HAND LT 2 VWS XR HAND LT 2 VWS 2 views left hand HISTORY: Injury, pain COMPARISON: None IMPRESSION: * No acute fracture or malalignment in the left hand. Finalized by Mina Gilbert MD on 07/17/2024 3:49 AM Normal [facility] Ambulatory Visit Summaryon 0 05-02-2024 Ambulatory Visit Summary Ambulatory Visit Summary FELISA GARCIA :1985 Visit Date:05/02/2024 Ambulatory Visit Instructions Your Diagnosis ADHD (attention deficit hyperactivity disorder), inattentive type Generalized anxiety disorder GERD with esophagitis Moderate persistent asthma with exacerbation Cigarette smoker Spasm of back muscles Your Care Team Attending Physician - Valdemar MCCLENDON DO, FAAFP Primary Care Physician - Valdemar MCCLENDON DO, FAAFP This Is Your Medications List amphetamine-dextroamphetamin e (Adderall 30 mg oral tablet) famotidine (Pepcid 40 mg Tab) methocarbamol (Robaxin-750 oral tablet) Contact prescribing physician if questions or concerns Misc Prescription ([employer]S MELATONIN 5 MG TABLET) acetaminophen (Tylenol Extra Strength 500 mg oral tablet) albuterol (Albuterol (Eqv-ProAir HFA) 90 mcg/inh inhalation aerosol) budesonide (Pulmicort Flexhaler 180 mcg/inh Powder) busPIRone (busPIRone 5 mg Tab) escitalopram (Lexapro 20 mg Tab) fluticasone nasal (Flonase 0.05 mg/inh Parrott) loratadine (Claritin 10 mg Tab) topiramate (Topamax 100 mg Tab) Procedures Performed Nerve block (06/01/2012), Lumbar epidural steroid injection (05/20/2011), delivery, Epidural injection of lumbar spine using fluoroscopic guidance, Tonsillectomy. Discharge Vitals Temperature (Oral) 36.6 ?C Heart Rate (Peripheral) 71 Respiratory Rate 16 Blood Pressure 112/68 Height 170 cm Height 67 in Weight 69.4 kg Weight 152.68 lb BMI 24.01 What to do next You Need to Schedule the Following Appointments Follow Up with Valdemar MCCLENDON DO, FAAFP, FAM, PED When: In 3 months Where: [address] [place] [address]- Medications What How Much When Why Instructions Unchanged amphetamine-dextroamphetamin e (Adderall 30 mg oral tablet) 1 Tablets By Mouth 2 times a day ADHD (attention deficit hyperactivity disorder), inattentive type 30 day supply with breakfast and lunch Pickup at [facility]/pharmacy #[id number] Unchanged famotidine (Pepcid 40 mg Tab) 1 Tablets By Mouth Once a day (at bedtime) GERD with esophagitis Pickup at [facility]/pharmacy #[id number] Unchanged methocarbamol (Robaxin-750 oral tablet) 2 Tablets By Mouth 3 times a day as needed for Spasm Spasm of back muscles Pickup at [facility]/pharmacy #[id number] Unchanged acetaminophen (Tylenol Extra Strength 500 mg oral tablet) 2 Tablets By Mouth 3 times a day as needed for as needed for pain Contact prescribing physician if questions or concerns Unchanged albuterol (Albuterol (Eqv-ProAir HFA) 90 mcg/ inh inhalation aerosol) 2 Puffs Inhalation Every 4 hours as needed for Cough Contact prescribing physician if questions or concerns Unchanged budesonide (Pulmicort Flexhaler 180 mcg/ inh Powder) 2 Puffs Inhalation 2 times a day Contact prescribing physician if questions or concerns Unchanged busPIRone (busPIRone 5 mg Tab) 1 Tablets By Mouth 3 times a day Generalized anxiety disorder Contact prescribing physician if questions or concerns Unchanged escitalopram (Lexapro 20 mg Tab) 1 Tablets By Mouth Every day Generalized anxiety disorder Contact prescribing physician if questions or concerns Unchanged fluticasone nasal (Flonase 0.05 mg/ inh Parrott) 1 Sprays Nasal Inhalation 2 times a day each nostril Contact prescribing physician if questions or concerns Unchanged loratadine (Claritin 10 mg Tab) 1 Tablets By Mouth Every day Allergy to pollen Upper respiratory tract hypersensitivity reaction, site unspecified Contact prescribing physician if questions or concerns Unchanged Misc Prescription ([employer]S MELATONIN 5 MG TABLET) TAKE 1 TABLET BY MOUTH AT BEDTIME DAILY Contact prescribing physician if questions or concerns Unchanged topiramate (Topamax 100 mg Tab) 1 Tablets By Mouth Every day Common migraine Contact prescribing physician if questions or concerns Pharmacy Information [facility]/pharmacy #[id number]: [address], [place] [id number] [phone] Medications and Immunizations Administered Not Given influenza virus vaccine, inactivated, Patient Refuses Allergies CloNIDine HCl (Unknown) Pollen (Unknown) Adhesive Bandage (Blister) BuSpar (Other) [place] (Unknown) Milk Products (Unknown) Wheat (Unknown) Problems Ongoing - Any problem that you are currently receiving treatment for. Acquired nasal deformity (Septal whole w increasing epistaxis) ADHD (attention deficit hyperactivity disorder), inattentive type Allergy to pollen Cerebral concussion Cervical strain Childhood asthma Cigarette smoker Common migraine Compound nevus of back COVID-19 vaccine dose declined Decreased hearing of right ear Fracture of temporal bone with routine healing Generalized anxiety disorder GERD with esophagitis H/O fracture of skull Head ache Lumbar herniated disc Mild intermittent asthma with (acute) exacerbation Moderate persistent asthma with exacerbation Nevus of neck Nicotine dependence, cigarettes, with o (more content not included)... Normal [facility] Family Medicine Office/Clini c Noteon 05-02-2024 Family Medicine Office/Clinic Note Family Medicine Office/Clinic Note Chief Complaint Patient here for 4 month f/u on ADHD, anxiety, gerd History of Present Illness Patient is currently taking prescribed medication. This dose is very effective. Medication side effects none. Requesting any medication changes, none. Drug holidays are not taken. Improvements have been made in work,have been made in attentiveness, have been made in hyperactivity,have been made in impulsivity, have been made in school/work behavior, have been made in home behavior, and have been made in organizational skills. OARRS Verification: OARRS report reviewed. No problems noted (Y/N). Review of Systems PHQ Score Initial Depression Screen Score: 0 SCORE ROS - Provider Constitutional: no fever, no chills, no sweats, no weakness. Skin: no Jaundice, no rash, no lesions, no petechiae. ENMT: no ear pain, no sore throat, no congestion, no hoarseness. Respiratory: no shortness of breath, no cough, no orthopnea, no wheezing. Cardiovascular: no chest pain, no palpitations, no edema. Gastrointestinal: no nausea, no vomiting, no diarrhea, no GI bleeding.no constipationnoheartburn Genitourinary: no dysuria, no hematuria, no discharge, no pain.nofreq/urgency Musculoskeletal: no back pain, no trauma.nojoint pain Neurologic: no headache, no dizziness, no numbness, no weakness. Psychiatric: no sleeping problems, no irritability, no mood swings/depression. Heme/Lymph: no bleeding tendency, no bruising tendency, no petechiae, no swollen lymph nodes no Allergy/Imunology no seasonal allergies, no food allergies, no recurrent infections, no impaired immunity. Additional ROS info: Except as noted in the above Review of Systems and in the History of Present Illness all other systems have been reviewed and are negative or noncontributory. Physical Exam Vitals & Measurements T: 36.6 ?C(Oral) HR: 71(Peripheral) RR: 16 BP: 112/68 SpO2: 98% HT: 67 in HT: 170 cm WT: 69.4 kg WT: 152.68 lb BMI: 24.01 General: Well developed, well nourished, in no acute distress Mouth: Mucous membranes moist. Normal oropharynx, and posterior pharynx without lesions or exudates. Tongue normal Neck: Neck supple. No masses or palpable cervical nodes. Trachea midline. Thyroid without nodules, masses, tenderness, or enlargement Lungs: Normal respiratory effort and clear to auscultation Cardio: Regular rate and rhythm, normal S1 and S2, no murmur, no rub Abdomen: Soft, non-distended, non-tender. no G/R/S/Masses Musculoskeletal: No deformity or scoliosis noted. Normal range of motion. Joints normal. No erythema, edema, effusion, or ecchymosis Extremity: No clubbing, cyanosis, edema, or deformity, with normal ROM in both upper and lower bilateral extremities Neurologic: Grossly normal Skin: No rashes, ulcerations, or suspicious lesions Mental Status: Alert and oriented x3. Normal mood and affect Assessment/Plan 1. ADHD (attention deficit hyperactivity disorder), inattentive type (F90.0: Attention-deficit hyperactivity disorder, predominantly inattentive type) Good control with Adderall 30 mg p.o. twice daily Ordered: amphetamine-dextroamphetamin e, 30 mg, 1 tab(s), Oral, BID, 60 tab(s), Refill(s) 0, 30 day supply with breakfast and lunch, [facility]/pharmacy #[id number], 170, cm, 05/02/24 10:34:00 EDT, Height/Length Dosing, 69.4, kg, 05/02/24 10:34:00 EDT, Weight Dosing 2. Generalized anxiety disorder (F41.1: Generalized anxiety disorder) Good control with work, stress reduction techniques, Lexapro 20 mg p.o. daily, and buspirone 5 mg p.o. 3 times daily 3. GERD with esophagitis (K21.00: Gastro-esophageal reflux disease with esophagitis, without bleeding) Good control with diet exercise and famotidine 40 mg p.o. nightly 4. Moderate persistent asthma with exacerbation (J45.41: Moderate persistent asthma with (acute) exacerbation) Good control with Pulmicort flex inhaler 180 mcg 2 puffs p.o. twice daily and albuterol HFA 2 puffs p.o. every 4 as needed 5. Cigarette smoker (F17.210: Nicotine dependence, cigarettes, uncomplicated) We strongly recommend to quit tobacco use. Cigarette smoking harms nearly every organ of the body, causes many diseases, and reduces the health of smokers in general. Quitting smoking lowers your risk for smoking-related diseases and can add years to your life. We encourage you to visit www.smokefree.gov access to helpful resources including free telephone support. If you decide on prescription treatment to help you quit, we would be happy to provide these. Spasm of back muscles (M62.830: Muscle spasm of back) Robaxen helpful with exercises Ordered: methocarbamol, 1,500 mg = 2 tab(s), Oral, TID, PRN Spasm, # 60 tab(s), Refills(s) 3, Pharmacy: [facility]/pharmacy #[id number], 170, cm, 05/02/24 10:34:00 EDT, Height/Length Dosing, 69.4, kg, 05/02/24 10:34:00 EDT, Weight Dosing Orders: famotidine, 40 mg = 1 tab(s), Oral, Once a day (at bedtime), # 90 tab(s), Refills(s) 4, Pharmacy: [facility]/pharmacy #[id number], 1 (more content not included)... Normal [facility] Comment on above: Result Comment: Elec tronically Signed By: Valdemar MCCLENDON DO, FAAFP\\anup\\Date and Time Signed: 05/02/24 10:53 EDT Formson 01-24-2024 Forms [id number] Normal [facility] Ambulatory Visit Summaryon 0 01-21-2024 Ambulatory Visit Summary FELISA GARCIA :1985 Visit Date:01/21/2024 Ambulatory Visit Instructions Your Diagnosis ADHD (attention deficit hyperactivity disorder), inattentive type GERD with esophagitis Cigarette smoker Mild intermittent asthma with (acute) exacerbation Adult BMI 25.0-25.9 kg/sq m Generalized anxiety disorder Common migraine Your Care Team Attending Physician - Valdemar MCCLENDON DO, FAAFP Primary Care Physician - Valdemar MCCLENDON DO, FAAFP This Is Your Medications List amphetamine-dextroamphetamin e (Adderall 30 mg oral tablet) busPIRone (busPIRone 5 mg Tab) famotidine (Pepcid 40 mg Tab) loratadine (Claritin 10 mg Tab) methocarbamol (Robaxin-750 oral tablet) Contact prescribing physician if questions or concerns Misc Prescription ([facility] MELATONIN 5 MG TABLET) acetaminophen (Tylenol Extra Strength 500 mg oral tablet) albuterol (Albuterol (Eqv-ProAir HFA) 90 mcg/inh inhalation aerosol) budesonide (Pulmicort Flexhaler 180 mcg/inh Powder) escitalopram (Lexapro 20 mg Tab) fluticasone nasal (Flonase 0.05 mg/inh Parrott) topiramate (Topamax 100 mg Tab) Procedures Performed Nerve block (06/01/2012), Lumbar epidural steroid injection (05/20/2011), delivery, Epidural injection of lumbar spine using fluoroscopic guidance, Tonsillectomy. Discharge Vitals Temperature (Oral) 36.6 ?C Heart Rate (Peripheral) 82 Blood Pressure 114/80 Height 170 cm Height 67 in Weight 74.4 kg Weight 163.68 lb BMI 25.74 What to do next You Need to Schedule the Following Appointments Follow Up with Valdemar MCCLENDON DO, FAAFP, FAM, PED When: In 3 months Where: [address] [place] [address]- Medications What How Much When Why Instructions New busPIRone (busPIRone 5 mg Tab) 1 Tablets By Mouth 3 times a day Generalized anxiety disorder Refills: 5 Pickup at [facility]/pharmacy #[id number] Unchanged amphetamine-dextroamphetamin e (Adderall 30 mg oral tablet) 1 Tablets By Mouth 2 times a day ADHD (attention deficit hyperactivity disorder), inattentive type 30 day supply with breakfast and lunch Pickup at [facility]/pharmacy #[id number] Unchanged famotidine (Pepcid 40 mg Tab) 1 Tablets By Mouth Once a day (at bedtime) GERD with esophagitis Pickup at [facility]/pharmacy #[id number] Unchanged loratadine (Claritin 10 mg Tab) 1 Tablets By Mouth Every day Allergy to pollen Upper respiratory tract hypersensitivity reaction, site unspecified [id number] Unchanged methocarbamol (Robaxin-750 oral tablet) 2 Tablets By Mouth 3 times a day as needed for Spasm Spasm of back muscles Pickup at [facility]/pharmacy #[id number] Unchanged acetaminophen (Tylenol Extra Strength 500 mg oral tablet) 2 Tablets By Mouth 3 times a day as needed for as needed for pain Contact prescribing physician if questions or concerns Unchanged albuterol (Albuterol (Eqv-ProAir HFA) 90 mcg/ inh inhalation aerosol) 2 Puffs Inhalation Every 4 hours as needed for Cough Contact prescribing physician if questions or concerns Unchanged budesonide (Pulmicort Flexhaler 180 mcg/ inh Powder) 2 Puffs Inhalation 2 times a day Contact prescribing physician if questions or concerns Unchanged escitalopram (Lexapro 20 mg Tab) 1 Tablets By Mouth Every day Generalized anxiety disorder Contact prescribing physician if questions or concerns Unchanged fluticasone nasal (Flonase 0.05 mg/ inh Parrott) 1 Sprays Nasal Inhalation 2 times a day each nostril Contact prescribing physician if questions or concerns Unchanged Misc Prescription ([facility] MELATONIN 5 MG TABLET) TAKE 1 TABLET BY MOUTH AT BEDTIME DAILY Contact prescribing physician if questions or concerns Unchanged topiramate (Topamax 100 mg Tab) 1 Tablets By Mouth Every day Common migraine Contact prescribing physician if questions or concerns Pharmacy Information [facility]/pharmacy #[id number]: [address], [place] [phone] Allergies CloNIDine HCl (Unknown) Pollen (Unknown) Adhesive Bandage (Blister) BuSpar (Other) [place] (Unknown) Milk Products (Unknown) Wheat (Unknown) Problems Ongoing - Any problem that you are currently receiving treatment for. Acquired nasal deformity (Septal whole w increasing epistaxis) ADHD (attention deficit hyperactivity disorder), inattentive type Allergy to pollen Cerebral concussion Cervical strain Childhood asthma Cigarette smoker Common migraine Compound nevus of back COVID-19 vaccine dose declined Decreased hearing of right ear Fracture of temporal bone with routine healing Generalized anxiety disorder GERD with esophagitis H/O fracture of skull Head ache Lumbar herniated disc Mild intermittent asthma with (acute) exacerbation Moderate persistent asthma with exacerbation Nevus of neck Nicotine dependence, cigarettes, with other nicotine-induced disorders GELACIO (obstructive sleep apnea) 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 Normal [facility] Medicine Office/Clini c Noteon 01-21-2024 Family Medicine Office/Clinic Note Chief Complaint Patient here for 3 month f/u on ADHD, gerd, anxiety. Also needs FMLA paperwork filled out. Says Lexapro isn't working. History of Present Illness Patient here for ADHD follow-up and states that Lexapro not working. Patient is currently taking prescribed medication. This dose is very effective. Medication side effects none. Requesting any medication changes, none. Drug holidays are not taken. Improvements have been made in work,have been made in attentiveness, have been made in hyperactivity,have been made in impulsivity, have been made in school/work behavior, have been made in home behavior, and have been made in organizational skills. OARRS Verification: OARRS report reviewed. No problems noted (Y/N). Review of Systems PHQ Score Initial Depression Screen Score: 0 SCORE ROS - Provider Constitutional: no fever, no chills, no sweats, no weakness. Skin: no Jaundice, no rash, no lesions, no petechiae. ENMT: no ear pain, no sore throat, no congestion, no hoarseness. Respiratory: no shortness of breath, no cough, no orthopnea, no wheezing. Cardiovascular: no chest pain, no palpitations, no edema. Gastrointestinal: no nausea, no vomiting, no diarrhea, no GI bleeding.no constipationnoheartburn Genitourinary: no dysuria, no hematuria, no discharge, no pain.nofreq/urgency Musculoskeletal: no back pain, no trauma.nojoint pain Neurologic: no headache, no dizziness, no numbness, no weakness. Psychiatric: no sleeping problems, no irritability, no mood swings/depression. Heme/Lymph: no bleeding tendency, no bruising tendency, no petechiae, no swollen lymph nodes no Allergy/Imunology no seasonal allergies, no food allergies, no recurrent infections, no impaired immunity. Additional ROS info: Except as noted in the above Review of Systems and in the History of Present Illness all other systems have been reviewed and are negative or noncontributory. Physical Exam Vitals & Measurements T: 36.6 ?C(Oral) HR: 82(Peripheral) BP: 114/80 SpO2: 98% HT: 67 in HT: 170 cm WT: 74.4 kg WT: 163.68 lb BMI: 25.74 General: Well developed, well nourished, in no acute distress Mouth: Mucous membranes moist. Normal oropharynx, and posterior pharynx without lesions or exudates. Tongue normal Neck: Neck supple. No masses or palpable cervical nodes. Trachea midline. Thyroid without nodules, masses, tenderness, or enlargement Lungs: Normal respiratory effort and clear to auscultation Cardio: Regular rate and rhythm, normal S1 and S2, no murmur, no rub Abdomen: Soft, non-distended, non-tender. no G/R/S/Masses Musculoskeletal: No deformity or scoliosis noted. Normal range of motion. Joints normal. No erythema, edema, effusion, or ecchymosis Extremity: No clubbing, cyanosis, edema, or deformity, with normal ROM in both upper and lower bilateral extremities Neurologic: Grossly normal Skin: No rashes, ulcerations, or suspicious lesions Mental Status: Alert and oriented x3. Normal mood and affect Assessment/Plan 1. ADHD (attention deficit hyperactivity disorder), inattentive type (F90.0: Attention-deficit hyperactivity disorder, predominantly inattentive type) Good control with Adderall 30 mg p.o. daily Ordered: amphetamine-dextroamphetamin e, 30 mg, 1 tab(s), Oral, BID, 60 tab(s), Refill(s) 0, 30 day supply with breakfast and lunch, [facility]/pharmacy #[id number], 170, cm, 01/21/24 9:11:00 EDT, Height/Length Dosing, 74.4, kg, 01/21/24 9:11:00 EDT, Weight Dosing 2. GERD with esophagitis (K21.00: Gastro-esophageal reflux disease with esophagitis, without bleeding) Good control with diet and exercise, Pepcid 40 mg p.o. every morning 3. Cigarette smoker (F17.210: Nicotine dependence, cigarettes, uncomplicated) Recommended discontinuation of cigarettes: We strongly recommend to quit tobacco use. Cigarette smoking harms nearly every organ of the body, causes many diseases, and reduces the health of smokers in general. Quitting smoking lowers your risk for smoking-related diseases and can add years to your life. We encourage you to visit www.smokefree.gov access to helpful resources including free telephone support. If you decide on prescription treatment to help you quit, we would be happy to provide these. 4. Mild intermittent asthma with (acute) exacerbation (J45.21: Mild intermittent asthma with (acute) exacerbation) Pulmicort flex inhaler 2 puffs p.o. twice daily along with albuterol HFA 2 puffs p.o. every 4 as needed breakthrough asthma along with Claritin 10 mg p.o. daily 5. Adult BMI 25.0-25.9 kg/sq m (Z68.25: Body mass index [BMI] 25.0-25.9, adult) The standard range for ages 18 and older is >=18.5 and < 25 kg/m2. Your BMI today was above this range, this falls in the overweight to obese category and there are medical benefits to weight loss. We can offer counselling, referral, and/or medical support in addressing this problem. Your BMI and weight management will be followed at subsequent visits. 6. Generalized anxiety diso (more content not included)... [facility] Comment on above: Result Comment: Elec tronically Signed By: Valdemar MCCLENDON DO, FAAFP\\.br\\Date and Time Signed: 01/21/24 09:48 EDT Medication Consenton 024 Medication Consent [id number] [facility] Patient Educationon 01-21-20 24 Patient Education Immunology Asthma Action Plan, Adult An asthma action plan helps you understand how to manage your asthma and what to do when you have an asthma attack. The action plan is a color-coded plan that lists the symptoms that indicate whether or not your condition is under control and what actions to take. ? If you have symptoms in the green zone, you are doing well. ? If you have symptoms in the yellow zone, you are having problems. ? If you have symptoms in the red zone, you need medical care right away. Follow the plan that you and your health care provider develop. Review your plan with your health care provider at each visit. What triggers your asthma? Knowing the things that can trigger an asthma attack or make your asthma symptoms worse is very important. Talk to your health care provider about your asthma triggers and how to avoid them. Record your known asthma triggers here: What is your personal best peak flow reading? If you use a peak flow meter, determine your personal best reading. Record it here: Green zone This zone means that your asthma is under control. You may not have any symptoms while you are in the green zone. This means that you: ? Have no coughing or wheezing, even while you are working or playing. ? Sleep through the night. ? Are breathing well. ? Have a peak flow reading that is above (80% of your personal best or greater). If you are in the green zone, continue to manage your asthma as directed. ? Take these medicines every day: ? Controller medicine and dosage: ? Controller medicine and dosage: ? Controller medicine and dosage: ? Controller medicine and dosage: ? Before exercise, use this reliever or rescue medicine: Call your health care provider if you are using a reliever or rescue medicine more than 2?3 times a week. Yellow zone Symptoms in this zone mean that your condition may be getting worse. You may have symptoms that interfere with exercise, are noticeably worse after exposure to triggers, or are worse at the first sign of a cold (upper respiratory infection). These may include: ? Waking from sleep. ? Coughing, especially at night or first thing in the morning. ? Mild wheezing. ? Chest tightness. ? A peak flow reading that is to (50?79% of your personal best). If you have any of these symptoms: ? Add the following medicine to the ones that you use daily: ? Reliever or rescue medicine and dosage: ? Additional medicine and dosage: Call your health care provider if: ? You remain in the yellow zone for hours. ? You are using a reliever or rescue medicine more than 2?3 times a week. Red zone Symptoms in this zone mean that you should get medical help right away. You will likely feel distressed and have symptoms at rest that restrict your activity. You are in the red zone if: ? You are breathing hard and quickly. ? Your nose opens wide, your ribs show, and your neck muscles become visible when you breathe in. ? Your lips, fingers, or toes are a bluish color. ? You have trouble speaking in full sentences. ? Your peak flow reading is less than (less than 50% of your personal best). ? Your symptoms do not improve within 15?20 minutes after you use your reliever or rescue medicine (bronchodilator). If you have any of these symptoms: ? These symptoms represent a serious problem that is an emergency. Do not wait to see if the symptoms will go away. Get medical help right away. Call your local emergency services (911 in the [place] Do not drive yourself to the hospital. ? Use your reliever or rescue medicine. ? Start a nebulizer treatment or take 2?4 puffs from a metered-dose inhaler with a spacer. ? Repeat this action every 15?20 minutes until help arrives. Where to find more information You can find more information about asthma from: ? Centers for Disease Control and Prevention: www.cdc.gov ? [place] [employer]: www.lung.org This information is not intended to replace advice given to you by your health care provider. Make sure you discuss any questions you have with your health care provider. Document Revised: 10/02/2021 Document Reviewed: 10/02/2021 Elsevier Patient Education ? 2022 [employer] [place] [facility] Family Medicine Office/Clini c Noteon 11-26-2023 Family Medicine Office/Clinic Note Chief Complaint States she has been having migraines, upper back and neck pain History of Present Illness Here for follow up Have you had any ER visits or any hospitalizations since last visit? no Are you compliant with your medications and no difficulty affording your medications? yes Do you have side effects from the medication? no Are you compliant with your diet? yes Do you exercise? yes Do you have any of the following symptoms? Chest pain? no Palpitations? no UMANZOR/SOB? no Orthopnea? no PND? no Edema? no Have you had any recent cardiopulmonary testing? no Massage gun at home helps back , lauren start upper shoulder blades then go to neck and get bad at times, then lead to migraines. Review of Systems PHQ Score Initial Depression Screen Score: 0 SCORE ROS - Provider Constitutional: no fever, no chills, no sweats, no weakness. Skin: no Jaundice, no rash, no lesions, no petechiae. ENMT: no ear pain, no sore throat, no congestion, no hoarseness. Respiratory: no shortness of breath, no cough, no orthopnea, no wheezing. Cardiovascular: no chest pain, no palpitations, no edema. Gastrointestinal: no nausea, no vomiting, no diarrhea, no GI bleeding.no constipationnoheartburn Genitourinary: no dysuria, no hematuria, no discharge, no pain.nofreq/urgency Musculoskeletal: yes back pain, no trauma.nojoint pain Neurologic: no headache, no dizziness, no numbness, no weakness. Psychiatric: no sleeping problems, no irritability, no mood swings/depression. Heme/Lymph: no bleeding tendency, no bruising tendency, no petechiae, no swollen lymph nodes no Allergy/Imunology no seasonal allergies, no food allergies, no recurrent infections, no impaired immunity. Additional ROS info: Except as noted in the above Review of Systems and in the History of Present Illness all other systems have been reviewed and are negative or noncontributory. Neurologist started on 50mg Topomax in Nov and not seem helpful, 3 Migraines per week and go away with sleep and ice to head and neck and dark environment helps Physical Exam Vitals & Measurements T: 36.7 ?C(Oral) HR: 72(Peripheral) RR: 16 BP: 112/68 SpO2: 99% HT: 67 in HT: 170 cm WT: 76.3 kg WT: 167.86 lb BMI: 26.4 General: Well developed, well nourished, in no acute distress Mouth: Mucous membranes moist. Normal oropharynx, and posterior pharynx without lesions or exudates. Tongue normal Neck: Neck supple. No masses or palpable cervical nodes. Trachea midline. Thyroid without nodules, masses, tenderness, or enlargement Lungs: Normal respiratory effort and clear to auscultation Cardio: Regular rate and rhythm, normal S1 and S2, no murmur, no rub Abdomen: Soft, non-distended, non-tender. no G/R/S/Masses Musculoskeletal: Pt examined in sitting and standing positions: MS: Scoliosis None F/E: Normal 90 active flexion and 210* active extension SB: 25* R and L DTR's: Normal Patellar Reflexes Toe and Heal Walking: Normal SLR's: R Negative L Negative Sciatic Notch Tenderness R Normal L Normal Extremity: No clubbing, cyanosis, edema, or deformity, with normal ROM in both upper and lower bilateral extremities Neurologic: Grossly normal Skin: No rashes, ulcerations, or suspicious lesions Mental Status: Alert and oriented x3. Normal mood and affect Assessment/Plan 1. Lumbar herniated disc (M51.26: Other intervertebral disc displacement, lumbar region) exercise helpful, marked improvement. 2. H/O fracture of skull (Z87.81: Personal history of (healed) traumatic fracture) recovered clinically, , fracture site feels like someone taking chisel to it when I get migraine, Neurology helping. 3. Mild intermittent asthma with (acute) exacerbation (J45.21: Mild intermittent asthma with (acute) exacerbation) not afford Trelegy, change to Qvar Ordered: beclomethasone, 2 puff(s), Inhalation, BID, 10.6 gm, Refill(s) 11, [facility]/pharmacy #[id number], 170, cm, 11/26/23 8:20:00 EDT, Height/Length Dosing, 76.3, kg, 11/26/23 8:20:00 EDT, Weight Dosing 4. Cigarette smoker (F17.210: Nicotine dependence, cigarettes, uncomplicated) We strongly recommend to quit tobacco use. Cigarette smoking harms nearly every organ of the body, causes many diseases, and reduces the health of smokers in general. Quitting smoking lowers your risk for smoking-related diseases and can add years to your life. We encourage you to visit www.smokefree.gov access to helpful resources including free telephone support. If you decide on prescription treatment to help you quit, we would be happy to provide these. 5. Common migraine (G43.009: Migraine without aura, not intractable, without status migrainosus) Robaxin in addition to Topamax, the 50mg ineffective, will increase to 100mg po q day Ordered: topiramate, 100 mg = 1 tab(s), Oral, Daily, # 90 tab(s), Refills(s) 1, Pharmacy: [facility]/pharmacy #[id number], 170, cm, 11/26/23 8:20:00 EDT, Height/Length Dosing, 76.3, kg, 11/26/23 8:20:00 EDT, Weight Dosing 6. BMI 26.0 (more content not included)... Normal [facility] Comment on above: Result Comment: Elec tronically Signed By: BHARAT MOREJON FAAFP, Valdemar Garcia\\.br\\Date and Time Signed: 11/26/23 08:54 EDT Patient Educationon 11-26-19 Patient Education Neurology Chronic Migraine Headache A migraine headache is throbbing pain that is usually on one side of the head. Migraines that keep coming back are called recurring migraines. A migraine is called a chronic migraine if it happens at least 15 days in a month for more than 3 months. Talk with your doctor about what things may bring on (trigger) your migraines. What are the causes? The exact cause of this condition is not known. A migraine may be caused when nerves in the brain become irritated and release chemicals that cause irritation and swelling (inflammation) of blood vessels. The irritation and swelling of the blood vessels causes pain. Migraines may be brought on or caused by: ? Smoking. ? Foods and drinks, such as: ? Cheese. ? Chocolate. ? Alcohol. ? Caffeine. ? Certain substances in some foods or drinks. ? Some medicines. Other things that may bring on a migraine include: ? Periods, for women. ? Stress. ? Not enough sleep or too much sleep. ? Feeling very tired. ? Bright lights or loud noises. ? Smells ? Weather changes and being at high altitude. What increases the risk? The following factors may make you more likely to have chronic migraine: ? Having migraines or family members who have them. ? Being very sad (depressed) or feeling worried or nervous (anxious). ? Taking a lot of pain medicine. ? Having problems sleeping. ? Having heart disease, diabetes, or being very overweight (obese). What are the signs or symptoms? Symptoms of this condition include: ? Pain that feels like it throbs. ? Pain that is usually only on one side of the head. In some cases, the pain may be on both sides of the head or around the head or neck. ? Very bad pain that keeps you from doing daily activities. ? Pain that gets worse with activity. ? Feeling like you may vomit (feeling nauseous) or vomiting. ? Pain when you are around bright lights, loud noises, or activity. ? Being sensitive to bright lights, loud noises, or smells. ? Feeling dizzy. How is this treated? This condition is treated with: ? Medicines. These help to: ? Lessen pain and the feeling like you may vomit. ? Prevent migraines. ? Changes to your diet or sleep. ? Therapy. This might include: ? Relaxation training. ? Biofeedback. This is a treatment that teaches you to relax, use your brain to lower your heart rate, and control your breathing. ? Cognitive behavioral therapy (CBT). This therapy helps you set goals and follow up on the changes that you make. ? Acupuncture. ? Using a device that provides electrical stimulation to your nerves, which can help take away pain. ? Surgery, if the other treatments do not work. Follow these instructions at home: Medicines ? Take pekm-okc-alxtykn and prescription medicines only as told by your doctor. ? Ask your doctor if the medicine prescribed to you requires you to avoid driving or using machinery. Lifestyle ? Do not use any products that contain nicotine or tobacco, such as cigarettes, e-cigarettes, and chewing tobacco. If you need help quitting, ask your doctor. ? Do not drink alcohol. ? Get 7?9 hours of sleep each night. ? Lower the stress in your life. Ask your doctor about ways to do this. ? Stay at a healthy weight. Talk with your doctor if you need help losing weight. ? Get regular exercise. General instructions ? Keep a journal to find out if certain things bring on migraines. For example, write down: ? What you eat and drink. ? How much sleep you get. ? Any change to your diet or medicines. ?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 Differentialon 03-10-2023 Basophils (Bld) [#/Vol] [facility] Basophils/100 WBC (Bld) 0 % 0 - 2 % [facility] [employer] Eosinophils (Bld) [#/Vol] 0.16 10*3/uL [facility] Eosinophils/100 WBC (Bld) 3 % 1 - 4 % [facility] Erythrocyte distribution width (RBC) [Ratio] 13.2 % 11.8 - 14.4 % [facility] Hematocrit (Bld) [Volume fraction] 35.7 % Low 36.3 - 47.1 % [facility] Hemoglobin (Bld) [Mass/Vol] 11.4 g/dL Low 11.9 - 15.1 g/dL [facility] Immature granulocytes (Bld) [#/Vol] [facility] Immature granulocytes/100 WBC (Bld) 0 % 0 [facility] Interpretation and review of laboratory results Abnormal [facility] Lymphocytes/100 WBC (Bld) 28 % 24 - 43 % [facility] Lymphocytes/100 WBC (Bld) 1.73 % [facility] MCH (RBC) [Entitic mass] 28.9 pg 25.2 - 33.5 pg [facility] MCHC (RBC) [Mass/Vol] 31.9 g/dL 28.4 - 34.8 g/dL [facility] MCV (RBC) [Entitic vol] 90.6 fL 82.6 - 102.9 fL [facility] Monocytes/100 WBC (Bld) 7 % 3 - 12 % [facility] Monocytes/100 WBC (Bld) 0.41 % [facility] Neutrophils/100 WBC (Bld) 62 % 36 - 65 % [facility] Nucleated RBC/100 WBC (Bld) [Ratio] 0.0 % 0.0 per 100 WBC [facility] Platelet mean volume (Bld) [Entitic vol] 9.3 fL 8.1 - 13.5 fL [facility] Platelets (Bld) [#/Vol] 360 10*3/uL [facility] RBC (Bld) [#/Vol] 3.94 10*6/uL Low 3.95 - 5.11 m/uL [facility] Segmented neutrophils/100 WBC (Bld) 3.76 % [facility] WBC other (Bld) [#/Vol] 6.1 [facility] CBC with Diffon 03-10-2023 Abs. Basophil <0.03 Normal 0.00-0.20 [facility] Comment on above: Performed By: #### B MP, MG, CDP #### [facility] CenterPowers Device Technologies LLC[facility] [address] [place] [address] [employer]: Agustin Logan MD Abs.Imm.Granulocyte <0.03 Normal 0.00-0.30 [facility] Comment on above: Performed By: #### B MP, MG, CDP #### [facility] Center[facility] LLC. [address] [place] [address] [employer]: Agustin Logan MD Abs.Neutrophil (Seg) 3.76 k/uL Normal 1.50-8.10 [facility] Comment on above: Performed By: #### B MP, MG, CDP #### [facility] Center[facility] LLC[facility] [address] [place] [address] [employer]: Agustin Logan MD Basophils/100 WBC (Bld) 0 % Normal 0-2 [facility] Comment on above: Performed By: #### B MP MG, CDP #### [facility] [address] [place] [address] [employer]: Agustin Logan MD Eosinophils (Bld) [#/Vol] 0.16 10*3/uL Normal 0.00-0.44 [facility] Comment on above: Performed By: #### B MP, MG, CDP #### [facility] LLC[facility] [address] [place] [address] [employer]: Agustin Logan MD Eosinophils/100 WBC (Bld) 3 % Normal 1-4 [facility] Comment on above: Performed By: #### B MP, MG, CDP #### [employer] [address] [place] [address] [employer]: Agustin Logan MD Erythrocyte distribution width (RBC) [Ratio] 13.2 % Normal 11.8-14.4 [facility] Comment on above: Performed By: #### B MP, MG, CDP #### [facility] LLC[facility] [address] [place] [address] [employer]: Agustin Logan MD Hematocrit (Bld) [Volume fraction] 35.7 % Low 36.3-47.1 [facility] Comment on above: Performed By: #### B JOSE MG, CDP #### [facility] [address] [place] [address] [employer]: Agustin Logan MD Hemoglobin (Bld) [Mass/Vol] 11.4 g/dL Low 11.9-15.1 [facility] Comment on above: Performed By: #### B MP MG, CDP #### [facility] LLC. [address] [place] [address] [employer]: Agustin Logan MD Immature granulocytes/100 WBC (Bld) 0 % Normal 0 [facility] Comment on above: Performed By: #### B JOSE MG, CDP #### [facility] [address] [place] [address] [employer]: Agustin Logan MD Lymphocytes (Bld) [#/Vol] 1.73 10*3/uL Normal 1.10-3.70 [facility] Comment on above: Performed By: #### B JOSE MG, CDP #### [facility] [address] [place] [address] [employer]: Agustin Logan MD Lymphocytes/100 WBC (Bld) 28 % Normal 24-43 [facility] Comment on above: Performed By: #### B JOSE MG, CDP #### [facility] Center[facility] LLC[facility] [address] [place] [address] [employer]: Agustin Logan MD MCH (RBC) [Entitic mass] 28.9 pg Normal 25.2-33.5 [facility] Comment on above: Performed By: #### B JOSE MG, CDP #### [facility] Center[facility] LLC[facility] [address] [place] [address] [employer]: Agustin Logan MD MCHC (RBC) [Mass/Vol] 31.9 g/dL Normal 28.4-34.8 [facility] Comment on above: Performed By: #### B MP, MG, CDP #### [place] [address] [employer]: Agustin Logan MD MCV (RBC) [Entitic vol] 90.6 fL Normal 82.6-102.9 [facility] Comment on above: Performed By: #### B MP, MG, CDP #### [place] [address] [employer]: Agustni Logan MD Monocytes (Bld) [#/Vol] 0.41 10*3/uL Normal 0.10-1.20 [facility] Comment on above: Performed By: #### B MP, MG, CDP #### [place] [address] [employer]: Agustin Logan MD Monocytes/100 WBC (Bld) 7 % Normal 3-12 [facility] Comment on above: Performed By: #### B MP, MG, CDP #### [place] [address] [employer]: Agustin Logan MD Neutrophil (Seg) 62 % Normal 36-65 [facility] Comment on above: Performed By: #### B MP, MG, CDP #### [place] [address] [employer]: Agustin Logan MD NRBC Automated 0.0 per 100 WBC Normal 0.0 [facility] Comment on above: Performed By: #### B MP, MG, CDP #### [place] [address] [employer]: Agustin Logan MD Platelet mean volume (Bld) [Entitic vol] 9.3 fL Normal 8.1-13.5 [facility] Comment on above: Performed By: #### B MP, MG, CDP #### [employer] [address] [place] [address] [employer]: Agustin Logan MD Platelets (Bld) [#/Vol] 360 10*3/uL Normal 138-453 [facility] Comment on above: Performed By: #### B MP, MG, CDP #### [facility] [address] [place] [address] [employer]: Agustin Logan MD RBC (Bld) [#/Vol] 3.94 10*6/uL Low 3.95-5.11 [facility] Comment on above: Performed By: #### B MP, MG, CDP #### [facility] [address] [place] [address] [employer]: Agustin Logan MD WBC (Bld) [#/Vol] 6.1 10*3/uL Normal 3.5-11.3 [facility] Comment on above: Performed By: #### B MP, MG, CDP #### [employer] [address] [place] [phone] [employer]: Agustin Logan MD CT HEAD WO CONTRASTon 2022 CT HEAD WO CONTRAST ADDENDUM: Subtle lucent line in the right zygomatic arch that may represent a nondisplaced fracture or suture line. Electronically Signed by: NEVA NICOLE on WedMar 10, 2023 8:31:15 AM EDT EXAMINATION: CT OF THE HEAD WITHOUT CONTRAST 02/14/2023 8:22 am TECHNIQUE: CT of the head was performed without the administration of intravenous contrast. Automated exposure control, iterative reconstruction, and/or weight based adjustment of the mA/kV was utilized to reduce the radiation dose to as low as reasonably achievable. COMPARISON: CT head performed 02/14/2023. HISTORY: ORDERING SYSTEM PROVIDED HISTORY: sdh, skull fracture TECHNOLOGIST PROVIDED HISTORY: sdh, skull fracture Reason for Exam: sdh,skull fx FINDINGS: BRAIN/VENTRICLES: There is redemonstration of a subdural hemorrhage adjacent to the left cerebral hemisphere that is similar in size compared to prior examination. There is a small hemorrhagic contusion in the left temporal lobe anteriorly. There is no mass effect or midline shift. The ventricles are unremarkable. The infratentorial structures are unremarkable. ORBITS: The visualized portion of the orbits demonstrate no acute abnormality. SINUSES: The visualized paranasal sinuses and mastoid air cells demonstrate no acute abnormality. SOFT TISSUES/SKULL: There is redemonstration of a right-sided skull fracture without displacement. IMPRESSION: Left-sided subdural hemorrhage that is similar in size compared to prior exam. Small hemorrhagic contusion in the left temporal lobe anteriorly. Stable nondisplaced right-sided skull fracture. Interpreted by: Neva Nicole MD Signed by: Neva Nicole MD 03/10/23 Edited Result - FINAL Normal [facility] CT HEAD WO CONTRAST ADDENDUM: Subtle lucent line the region of the right zygomatic arch may represent a nondisplaced fracture or suture line. Electronically Signed by: NEVA NICOLE on WedMar 10, 2023 8:30:34 AM EDT EXAMINATION: CT OF THE HEAD WITHOUT CONTRAST 02/18/2023 10:49 am TECHNIQUE: CT of the head was performed without the administration of intravenous contrast. Automated exposure control, iterative reconstruction, and/or weight based adjustment of the mA/kV was utilized to reduce the radiation dose to as low as reasonably achievable. COMPARISON: CT brain performed 02/14/2023. HISTORY: ORDERING SYSTEM PROVIDED HISTORY: headaches post sdh sah tbi TECHNOLOGIST PROVIDED HISTORY: headaches post sdh sah tbi Is the patient ?->No Reason for Exam: fall FINDINGS: BRAIN/VENTRICLES: There is redemonstration of subdural hemorrhage adjacent to the left cerebral hemisphere that is similar in size compared to prior examination measuring approximately 5 mm in greatest thickness. There is a stable hemorrhagic contusion in the left temporal lobe with adjacent edema. There is mild mass effect. There is no significant midline shift. The ventricles are unremarkable. The infratentorial structures are unremarkable. ORBITS: The visualized portion of the orbits demonstrate no acute abnormality. SINUSES: The visualized paranasal sinuses and mastoid air cells demonstrate no acute abnormality. SOFT TISSUES/SKULL: No acute abnormality of the visualized skull or soft tissues. IMPRESSION: Small subdural hemorrhage adjacent to the left cerebral hemisphere that is similar in size compared to prior exam. Stable small hemorrhagic contusion in the left temporal lobe with adjacent edema. Interpreted by: Neva Nicole MD Signed by: Neva Nicole MD 03/10/23 Edited Result - FINAL Normal [facility] EKG 12 Leadon 03-10-2023 Atrial Rate 62 BPM [facility] P Gy[place] 1 degrees [facility] P-R Interval 128 ms [facility] Q-T Interval 412 ms [facility] QRS Duration 76 ms [facility] QTc Calculation (Bazett) 418 ms [facility] R [place] 54 degrees [facility] T [place] 23 degrees [facility] Ventricular Rate 62 BPM [facility] [employer] Normal sinus rhythm Normal ECG When compared with ECG of 14-FEB-2023 02:26, No significant change was found Homa Lemus MD - 03/10/2023 Normal sinus rhythm Normal ECG When compared with ECG of 14-FEB-2023 02:26, No significant change was found [facility] SECRepunch [facility] Normal sinus rhythm Abnormal ECG When compared with ECG of 14-FEB-2023 02:26, Junctional rhythm has replaced Sinus rhythm Homa Lemus MD - 03/10/2023 Normal sinus rhythm Abnormal ECG When compared with ECG of 14-FEB-2023 02:26, Junctional rhythm has replaced Sinus rhythm [facility] EKG 12 LeadOrdered By: Jd Knutson on 03-10-2023 Atrial Rate 288 BPM [facility] Work Phone: Q-T Interval 414 ms [facility] Work Phone: QRS Duration 84 ms [employer] [employer] [facility] Work Phone: QTc Calculation (Bazett) 423 ms [facility] Work Phone: R [place] 60 degrees [facility] Work Phone: T [place] 19 degrees [facility] Work Phone: Ventricular Rate 63 BPM [facility] [employer] Work Phone: [facility] [employer] Work Phone: Magnesiumon 03-10-2023 Magnesium [Mass/Vol] 2.0 mg/dL Normal 1.6-2.6 [facility] [employer] Comment on above: Performed By: #### B MP, MG, CDP #### [facility] [address] [place] [address] [employer]: Agustin Logan MD [facility] [employer] Basic Metabolic Panelon 02-20 Anion gap [Moles/Vol] 10 mmol/L 9 - 17 mmol/L [facility] [employer] Calcium [Mass/Vol] 9.1 mg/dL 8.6 - 10. 4 mg/dL [facility] [employer] Chloride [Moles/Vol] 104 mmol/L 98 - 107 mmol/L [facility] [employer] CO2 [Moles/Vol] 26 mmol/L 20 - 31 mmol/L [facility] [employer] Creatinine [Mass/Vol] 0.5 mg/dL 0.5 - 0.9 mg/dL [facility] [employer] GFR/1.73 sq M.predicted MDRD (S/P/Bld) [Vol rate/Area] - [facility] Comment on above: These results are not intended for use in patients <18 years of age. eGFR results are calculated without a race factor using the 2020 CKD-EPI equation. Careful clinical correlation is recommended, particularly when comparing to results calculated using previous equations. The CKD-EPI equation is less accurate in patients with extremes of muscle mass, extra-renal metabolism of creatine, excessive creatine ingestion, or following therapy that affects renal tubular secretion. Glucose [Mass/Vol] 89 mg/dL 70 - 99 mg/dL [facility] [employer] Potassium [Moles/Vol] 3.7 mmol/L 3.7 - 5.3 mmol/L [facility] [employer] Sodium [Moles/Vol] 140 mmol/L 135 - 144 mmol/L [facility] Urea nitrogen [Mass/Vol] 7 mg/dL 6 - 20 mg/dL [facility] [employer] Basic Metabolic Profon 03-09 Anion gap [Moles/Vol] 10 mmol/L Normal 9-17 [facility] Comment on above: Performed By: #### B MP, MG, CDP #### [facility] [address] [place] [address] [employer]: Agustin Logan MD Calcium [Mass/Vol] 9.1 mg/dL Normal 8.6-10.4 [facility] Comment on above: Performed By: #### B MP, MG, CDP #### [facility] [address] [place] [address] [employer]: Agustin Logan MD Chloride [Moles/Vol] 104 mmol/L Normal 98-107 [facility] Comment on above: Performed By: #### B MP, MG, CDP #### [facility] [employer] [address] [place] [address] [employer]: Agustin Logan MD CO2 [Moles/Vol] 26 mmol/L Normal 20-31 [facility] Comment on above: Performed By: #### B MP MG, CDP #### [facility] [employer] [address] [place] [address] [employer]: Agustin Logan MD Creatinine [Mass/Vol] 0.5 mg/dL Normal 0.5-0.9 [facility] Comment on above: Performed By: #### B MP, MG, CDP #### [address] [address] [employer]: Agustin Logan MD GFR/1.73 sq M.predicted among non-blacks MDRD (S/P/Bld) [Vol rate/Area] mL/min/{1.73_m2} Normal >60 [facility] Comment on above: Result Comment: These results are not intended for use in patients <18 years of age. eGFR results are calculated without a race factor using the 2020 CKD-EPI equation. Careful clinical correlation is recommended, particularly when comparing to results calculated using previous equations. The CKD-EPI equation is less accurate in patients with extremes of muscle mass, extra-renal metabolism of creatine, excessive creatine ingestion, or following therapy that affects renal tubular secretion. Performed By: #### B JOSE MG, CDP #### [employer] [address] [place] [address] [employer]: Agustin Logan MD Glucose [Mass/Vol] 89 mg/dL Normal 70-99 [facility] Comment on above: Performed By: #### B JOSE MG, CDP #### [facility] [address] [place] [address] [employer]: Agustin Logan MD Potassium [Moles/Vol] 3.7 mmol/L Normal 3.7-5.3 [facility] Comment on above: Performed By: #### B JOSE MG, CDP #### [facility] [facility] [address] [place] [id number] [employer]: Agustin Logan MD Sodium [Moles/Vol] 140 mmol/L Normal 135-144 [facility] Comment on above: Performed By: #### B JOSE MG, CDP #### [facility] LLC[facility] [address] [place] [phone] [employer]: Agustin Logan MD Urea nitrogen [Mass/Vol] 7 mg/dL Normal 6-20 [facility] Comment on above: Performed By: #### B JOSE MG, CDP #### [facility] [address] [place] [phone] [employer]: Agustin Logan MD CBC with Auto Differentialon 03-09-2023 Basophils (Bld) [#/Vol] [facility] Basophils/100 WBC (Bld) 0 % 0 - 2 % [facility] Eosinophils (Bld) [#/Vol] 0.14 10*3/uL [facility] Eosinophils/100 WBC (Bld) 2 % 1 - 4 % [facility] Erythrocyte distribution width (RBC) [Ratio] 13.2 % 11.8 - 14.4 % [facility] Hematocrit (Bld) [Volume fraction] 37.0 % 36.3 - 47.1 % [facility] Hemoglobin (Bld) [Mass/Vol] 12.1 g/dL 11.9 - 15.1 g/dL [facility] Immature granulocytes (Bld) [#/Vol] [facility] Immature granulocytes/100 WBC (Bld) 0 % 0 [facility] Lymphocytes/100 WBC (Bld) 37 % 24 - 43 % [facility] Lymphocytes/100 WBC (Bld) 2.28 % [facility] MCH (RBC) [Entitic mass] 29.4 pg 25.2 - 33.5 pg [facility] MCHC (RBC) [Mass/Vol] 32.7 g/dL 28.4 - 34.8 g/dL [facility] MCV (RBC) [Entitic vol] 89.8 fL 82.6 - 102.9 fL [facility] Monocytes/100 WBC (Bld) 6 % 3 - 12 % [facility] Monocytes/100 WBC (Bld) 0.39 % [facility] Neutrophils/100 WBC (Bld) 55 % 36 - 65 % [facility] Nucleated RBC/100 WBC (Bld) [Ratio] 0.0 % 0.0 per 100 WBC [facility] Platelet mean volume (Bld) [Entitic vol] 9.0 fL 8.1 - 13.5 fL [facility] Platelets (Bld) [#/Vol] 391 10*3/uL [facility] RBC (Bld) [#/Vol] 4.12 10*6/uL 3.95 - 5.11 m/uL [facility] Segmented neutrophils/100 WBC (Bld) 3.33 % [facility] WBC other (Bld) [#/Vol] 6.2 [facility] CBC with Diffon 03-09-2023 Abs. Basophil <0.03 Normal 0.00-0.20 [facility] Comment on above: Performed By: #### B MP, MG, CDP #### [facility] [address] [place] [address] [employer]: Agustin Logan MD Abs.Imm.Granulocyte <0.03 Normal 0.00-0.30 [facility] Comment on above: Performed By: #### B MP, MG, CDP #### [facility] [address] [place] [phone] [employer]: Agustin Loagn MD Abs.Neutrophil (Seg) 3.33 k/uL Normal 1.50-8.10 [facility] Comment on above: Performed By: #### B MP, MG, CDP #### [facility] [address] [place] [phone] [employer]: Agustin Logan MD Basophils/100 WBC (Bld) 0 % Normal 0-2 [facility] Comment on above: Performed By: #### B MP MG, CDP #### [facility] [employer] [address] [place] [address] [employer]: Agustin Logan MD Eosinophils (Bld) [#/Vol] 0.14 10*3/uL Normal 0.00-0.44 [facility] Comment on above: Performed By: #### B MP, MG, CDP #### [facility] [address] [place] [address] [employer]: Agustin Logan MD Eosinophils/100 WBC (Bld) 2 % Normal 1-4 [facility] Comment on above: Performed By: #### B MP, MG, CDP #### [employer] [address] [place] [address] [employer]: Agustin Logan MD Erythrocyte distribution width (RBC) [Ratio] 13.2 % Normal 11.8-14.4 [facility] Comment on above: Performed By: #### B MP, MG, CDP #### [facility] [address] [place] [phone] [employer]: Agustin Logan MD Hematocrit (Bld) [Volume fraction] 37.0 % Normal 36.3-47.1 [facility] Comment on above: Performed By: #### B JOSE MG, CDP #### [facility] [employer] [address] [place] [phone] [employer]: Agustin oLgan MD Hemoglobin (Bld) [Mass/Vol] 12.1 g/dL Normal 11.9-15.1 [facility] Comment on above: Performed By: #### B MP MG, CDP #### [facility] [address] [place] [address] [employer]: Agustin Logan MD Immature granulocytes/100 WBC (Bld) 0 % Normal 0 [facility] Comment on above: Performed By: #### B JOSE MG, CDP #### [address] [address] [employer]: Agustin Logan MD Lymphocytes (Bld) [#/Vol] 2.28 10*3/uL Normal 1.10-3.70 [facility] Comment on above: Performed By: #### B JOSE MG, CDP #### [facility] [employer] [address] [place] [address] [employer]: Agustin Logan MD Lymphocytes/100 WBC (Bld) 37 % Normal 24-43 [facility] Comment on above: Performed By: #### B JOSE MG, CDP #### [facility] [address] [place] [phone] [employer]: Agustin Logan MD MCH (RBC) [Entitic mass] 29.4 pg Normal 25.2-33.5 [facility] Comment on above: Performed By: #### B JOSE MG, CDP #### [facility] [address] [place] [phone] [employer]: Agustin Logan MD MCHC (RBC) [Mass/Vol] 32.7 g/dL Normal 28.4-34.8 [facility] Comment on above: Performed By: #### B MP, MG, CDP #### [place] [address] [employer]: Agustin Logan MD MCV (RBC) [Entitic vol] 89.8 fL Normal 82.6-102.9 [facility] Comment on above: Performed By: #### B MP, MG, CDP #### [place] [address] [employer]: Agustin Logan MD Monocytes (Bld) [#/Vol] 0.39 10*3/uL Normal 0.10-1.20 [facility] Comment on above: Performed By: #### B MP, MG, CDP #### [place] [address] [employer]: Agustin Logan MD Monocytes/100 WBC (Bld) 6 % Normal 3-12 [facility] Comment on above: Performed By: #### B MP MG, CDP #### [place] [address] [employer]: Agustin Logan MD Neutrophil (Seg) 55 % Normal 36-65 [facility] Comment on above: Performed By: #### B MP, MG, CDP #### [place] [address] [employer]: Agustin Logan MD NRBC Automated 0.0 per 100 WBC Normal 0.0 [facility] Comment on above: Performed By: #### B MP, MG, CDP #### [place] [address] [employer]: Agustin Logan MD Platelet mean volume (Bld) [Entitic vol] 9.0 fL Normal 8.1-13.5 [facility] Comment on above: Performed By: #### B JOSE, MG, CDP #### [facility] [address] [place] [address] [employer]: Agustin Logan MD Platelets (Bld) [#/Vol] 391 10*3/uL Normal 138-453 [facility] Comment on above: Performed By: #### B MP, MG, CDP #### [facility] [address] [place] [address] [employer]: Agustin Logan MD RBC (Bld) [#/Vol] 4.12 10*6/uL Normal 3.95-5.11 [facility] Comment on above: Performed By: #### B MP, MG, CDP #### [facility] [place] [address] [employer]: Agustin Logan MD WBC (Bld) [#/Vol] 6.2 10*3/uL Normal 3.5-11.3 [facility] Comment on above: Performed By: #### B MP, MG, CDP #### [facility] [address] [place] [address] [employer]: Agustin Logan MD COVID-19, Rapidon 03-09-2023 SARS-CoV-2 (COVID-19) RdRp gene MAXIM+probe Ql (Resp) Not detected Not Detected [facility] Comment on above: Rapid NAAT: The specimen is NEGATIVE for SARS-CoV-2, the novel coronavirus associated with COVID-19. The ID NOW COVID-19 assay is designed to detect the virus that causes COVID-19 in patients with signs and symptoms of infection who are suspected of COVID-19. An individual without symptoms of COVID-19 and who is not shedding SARS-CoV-2 virus would expect to have a negative (not detected) result in this assay. Negative results should be treated as presumptive and, if inconsistent with clinical signs and symptoms or necessary for patient management, should be tested with an alternative molecular assay. Negative results do not preclude SARS-CoV-2 infection and should not be used as the sole basis for patient management decisions. Fact sheet for Healthcare Providers: https://www.fda.gov/media/593978/download Fact sheet for Patients: https://www.fda.gov/media/429372/download Methodology: Isothermal Nucleic Acid Amplification Specimen Description .NASOPHARYNGEAL SWAB [facility] CT CERVICAL SPINE WO CONTRAS Ton 03-09-2023 CT CERVICAL SPINE WO CONTRAST EXAMINATION: CT OF THE CERVICAL SPINE WITHOUT CONTRAST 03/09/2023 1:09 am TECHNIQUE: CT of the cervical spine was performed without the administration of intravenous contrast. Multiplanar reformatted images are provided for review. Automated exposure control, iterative reconstruction, and/or weight based adjustment of the mA/kV was utilized to reduce the radiation dose to as low as reasonably achievable. COMPARISON: None. HISTORY: ORDERING SYSTEM PROVIDED HISTORY: Fall, C spine tenderness TECHNOLOGIST PROVIDED HISTORY: Fall, C spine tenderness Decision Support Exception - unselect if not a suspected or confirmed emergency medical condition->Emergency Medical Condition (MA) Is the patient ?->No FINDINGS: BONES/ALIGNMENT: There is no acute fracture or traumatic malalignment. DEGENERATIVE CHANGES: No significant degenerative changes. SOFT TISSUES: There is no prevertebral soft tissue swelling. IMPRESSION: No acute abnormality of the cervical spine. Interpreted by: Dwayne Poole MD Signed by: Dwayne Poole MD 03/09/23 Final result Normal [facility] No acute abnormality of the cervical spine. [facility] EXAMINATION: CT OF THE CERVICAL SPINE WITHOUT CONTRAST 03/09/2023 1:09 am TECHNIQUE: CT of the cervical spine was performed without the administration of intravenous contrast. Multiplanar reformatted images are provided for review. Automated exposure control, iterative reconstruction, and/or weight based adjustment of the mA/kV was utilized to reduce the radiation dose to as low as reasonably achievable. COMPARISON: None. HISTORY: ORDERING SYSTEM PROVIDED HISTORY: Fall, C spine tenderness TECHNOLOGIST PROVIDED HISTORY: Fall, C spine tenderness Decision Support Exception - unselect if not a suspected or confirmed emergency medical condition->Emergency Medical Condition (MA) Is the patient ?->No FINDINGS: BONES/ALIGNMENT: There is no acute fracture or traumatic malalignment. DEGENERATIVE CHANGES: No significant degenerative changes. SOFT TISSUES: There is no prevertebral soft tissue swelling. [facility] Dwayne Sánchez MD - 03/09/2023 EXAMINATION: CT OF THE CERVICAL SPINE WITHOUT CONTRAST 03/09/2023 1:09 am TECHNIQUE: CT of the cervical spine was performed without the administration of intravenous contrast. Multiplanar reformatted images are provided for review. Automated exposure control, iterative reconstruction, and/or weight based adjustment of the mA/kV was utilized to reduce the radiation dose to as low as reasonably achievable. COMPARISON: None. HISTORY: ORDERING SYSTEM PROVIDED HISTORY: Fall, C spine tenderness TECHNOLOGIST PROVIDED HISTORY: Fall, C spine tenderness Decision Support Exception - unselect if not a suspected or confirmed emergency medical condition->Emergency Medical Condition (MA) Is the patient ?->No FINDINGS: BONES/ALIGNMENT: There is no acute fracture or traumatic malalignment. DEGENERATIVE CHANGES: No significant degenerative changes. SOFT TISSUES: There is no prevertebral soft tissue swelling. IMPRESSION: No acute abnormality of the cervical spine. [facility] CT CERVICAL SPINE WO CONTRAS TOrdered By: Dwayne Poole on 03-09-2023 [facility] Work Phone: CT HEAD WO CONTRASTon 2022 CT HEAD WO CONTRAST EXAMINATION: CT OF THE HEAD WITHOUT CONTRAST 03/09/2023 7:10 am TECHNIQUE: CT of the head was performed without the administration of intravenous contrast. Automated exposure control, iterative reconstruction, and/or weight based adjustment of the mA/kV was utilized to reduce the radiation dose to as low as reasonably achievable. COMPARISON: Earlier same day. HISTORY: ORDERING SYSTEM PROVIDED HISTORY: F/u SDH TECHNOLOGIST PROVIDED HISTORY: F/u SDH Is the patient ?->No FINDINGS: BRAIN/VENTRICLES: A subacute subdural hematoma overlying the left frontal and temporal lobes is again noted measuring 7 mm in thickness. There is no significant mass effect or midline shift. There is no ventriculomegaly. No acute infarct or new intracranial hemorrhage is identified. ORBITS: Limited evaluation of the orbits is unremarkable. SINUSES: The paranasal sinuses and mastoid air cells are clear. SOFT TISSUES/SKULL: No acute abnormality of the visualized skull or soft tissues. IMPRESSION: Stable subacute left frontotemporal subdural hematoma measuring 7 mm in thickness without significant mass effect. No new hemorrhage or acute infarct identified. Interpreted by: Adama Arredondo MD Signed by: Adama Arredondo MD 03/09/23 Final result Normal [facility] Stable subacute left frontotemporal subdural hematoma measuring 7 mm in thickness without significant mass effect. No new hemorrhage or acute infarct identified. [facility] EXAMINATION: CT OF THE HEAD WITHOUT CONTRAST 03/09/2023 7:10 am TECHNIQUE: CT of the head was performed without the administration of intravenous contrast. Automated exposure control, iterative reconstruction, and/or weight based adjustment of the mA/kV was utilized to reduce the radiation dose to as low as reasonably achievable. COMPARISON: Earlier same day. HISTORY: ORDERING SYSTEM PROVIDED HISTORY: F/u SDH TECHNOLOGIST PROVIDED HISTORY: F/u SDH Is the patient ?->No FINDINGS: BRAIN/VENTRICLES: A subacute subdural hematoma overlying the left frontal and temporal lobes is again noted measuring 7 mm in thickness. There is no significant mass effect or midline shift. There is no ventriculomegaly. No acute infarct or new intracranial hemorrhage is identified. ORBITS: Limited evaluation of the orbits is unremarkable. SINUSES: The paranasal sinuses and mastoid air cells are clear. SOFT TISSUES/SKULL: No acute abnormality of the visualized skull or soft tissues. [facility] Adama Arredondo MD - 03/09/2023 EXAMINATION: CT OF THE HEAD WITHOUT CONTRAST 03/09/2023 7:10 am TECHNIQUE: CT of the head was performed without the administration of intravenous contrast. Automated exposure control, iterative reconstruction, and/or weight based adjustment of the mA/kV was utilized to reduce the radiation dose to as low as reasonably achievable. COMPARISON: Earlier same day. HISTORY: ORDERING SYSTEM PROVIDED HISTORY: F/u SDH TECHNOLOGIST PROVIDED HISTORY: F/u SDH Is the patient ?->No FINDINGS: BRAIN/VENTRICLES: A subacute subdural hematoma overlying the left frontal and temporal lobes is again noted measuring 7 mm in thickness. There is no significant mass effect or midline shift. There is no ventriculomegaly. No acute infarct or new intracranial hemorrhage is identified. ORBITS: Limited evaluation of the orbits is unremarkable. SINUSES: The paranasal sinuses and mastoid air cells are clear. SOFT TISSUES/SKULL: No acute abnormality of the visualized skull or soft tissues. IMPRESSION: Stable subacute left frontotemporal subdural hematoma measuring 7 mm in thickness without significant mass effect. No new hemorrhage or acute infarct identified. [facility] Radiology Study observation (narrative) [facility] CT HEAD WO CONTRAST EXAMINATION: CT OF THE HEAD WITHOUT CONTRAST 03/09/2023 1:09 am TECHNIQUE: CT of the head was performed without the administration of intravenous contrast. Automated exposure control, iterative reconstruction, and/or weight based adjustment of the mA/kV was utilized to reduce the radiation dose to as low as reasonably achievable. COMPARISON: 02/18/2023 HISTORY: ORDERING SYSTEM PROVIDED HISTORY: SDH + skull fx TECHNOLOGIST PROVIDED HISTORY: SDH + skull fx Decision Support Exception - unselect if not a suspected or confirmed emergency medical condition->Emergency Medical Condition (MA) Is the patient ?->No FINDINGS: BRAIN/VENTRICLES: Again noted and decreased in density in size as well as extent is the right convexity subdural hematoma. In no longer extends along the left tentorial leaflet. The minimally hemorrhagic contusion at the inferolateral aspect of the left temporal lobe seen previously has shown expected evolutionary change as well. The hemorrhagic portion has resolved. Previously seen mild cerebral edema resulting in partial effacement of the lateral ventricles has nearly completely resolved. Minor residual effacement is present at the left lateral ventricle. No new hemorrhage is evident. ORBITS: The visualized portion of the orbits demonstrate no acute abnormality. SINUSES: The visualized paranasal sinuses and mastoid air cells demonstrate no acute abnormality. SOFT TISSUES/SKULL: Again noted is the nondisplaced right squamous temporal bone fracture extending infero anteriorly. At the anteroinferior aspect of the middle cranial fossa, it extends medially near the border of the temporal bone with the greater wing of sphenoid. There also appears to be nondisplaced nonangulated fracture of the right zygomatic arch, stable. IMPRESSION: Expected evolutionary changes of left subdural hematoma and minimally hemorrhagic left temporal contusion compared to the previous exam of 02/18/2023. Again noted and unchanged are right temporal bone fracture and probable nondisplaced non angulated right zygomatic arch fracture. Interpreted by: Terence Hollingsworth MD Signed by: Terence Hollingsworth MD 03/09/23 Final result Normal [facility] Expected evolutionar y changes of left subdural hematoma and minimally hemorrhagic left temporal contusion compared to the previous exam of 02/18/2023. Again noted and unchanged are right temporal bone fracture and probable nondisplaced non angulated right zygomatic arch fracture. [facility] EXAMINATION: CT OF THE HEAD WITHOUT CONTRAST 03/09/2023 1:09 am TECHNIQUE: CT of the head was performed without the administration of intravenous contrast. Automated exposure control, iterative reconstruction, and/or weight based adjustment of the mA/kV was utilized to reduce the radiation dose to as low as reasonably achievable. COMPARISON: 02/18/2023 HISTORY: ORDERING SYSTEM PROVIDED HISTORY: SDH + skull fx TECHNOLOGIST PROVIDED HISTORY: SDH + skull fx Decision Support Exception - unselect if not a suspected or confirmed emergency medical condition->Emergency Medical Condition (MA) Is the patient ?->No FINDINGS: BRAIN/VENTRICLES: Again noted and decreased in density in size as well as extent is the right convexity subdural hematoma. In no longer extends along the left tentorial leaflet. The minimally hemorrhagic contusion at the inferolateral aspect of the left temporal lobe seen previously has shown expected evolutionary change as well. The hemorrhagic portion has resolved. Previously seen mild cerebral edema resulting in partial effacement of the lateral ventricles has nearly completely resolved. Minor residual effacement is present at the left lateral ventricle. No new hemorrhage is evident. ORBITS: The visualized portion of the orbits demonstrate no acute abnormality. SINUSES: The visualized paranasal sinuses and mastoid air cells demonstrate no acute abnormality. SOFT TISSUES/SKULL: Again noted is the nondisplaced right squamous temporal bone fracture extending infero anteriorly. At the anteroinferior aspect of the middle cranial fossa, it extends medially near the border of the temporal bone with the greater wing of sphenoid. There also appears to be nondisplaced nonangulated fracture of the right zygomatic arch, stable. [facility] Terence Hollingsworth MD - 03/09/2023 EXAMINATION: CT OF THE HEAD WITHOUT CONTRAST 03/09/2023 1:09 am TECHNIQUE: CT of the head was performed without the administration of intravenous contrast. Automated exposure control, iterative reconstruction, and/or weight based adjustment of the mA/kV was utilized to reduce the radiation dose to as low as reasonably achievable. COMPARISON: 02/18/2023 HISTORY: ORDERING SYSTEM PROVIDED HISTORY: SDH + skull fx TECHNOLOGIST PROVIDED HISTORY: SDH + skull fx Decision Support Exception - unselect if not a suspected or confirmed emergency medical condition->Emergency Medical Condition (MA) Is the patient ?->No FINDINGS: BRAIN/VENTRICLES: Again noted and decreased in density in size as well as extent is the right convexity subdural hematoma. In no longer extends along the left tentorial leaflet. The minimally hemorrhagic contusion at the inferolateral aspect of the left temporal lobe seen previously has shown expected evolutionary change as well. The hemorrhagic portion has resolved. Previously seen mild cerebral edema resulting in partial effacement of the lateral ventricles has nearly completely resolved. Minor residual effacement is present at the left lateral ventricle. No new hemorrhage is evident. ORBITS: The visualized portion of the orbits demonstrate no acute abnormality. SINUSES: The visualized paranasal sinuses and mastoid air cells demonstrate no acute abnormality. SOFT TISSUES/SKULL: Again noted is the nondisplaced right squamous temporal bone fracture extending infero anteriorly. At the anteroinferior aspect of the middle cranial fossa, it extends medially near the border of the temporal bone with the greater wing of sphenoid. There also appears to be nondisplaced nonangulated fracture of the right zygomatic arch, stable. IMPRESSION: Expected evolutionary changes of left subdural hematoma and minimally hemorrhagic left temporal contusion compared to the previous exam of 02/18/2023. Again noted and unchanged are right temporal bone fracture and probable nondisplaced non angulated right zygomatic arch fracture. [facility] CT HEAD WO CONTRASTOrdered B y: Adama Arredondo on 03-09-2023 [facility] Work Phone: CT HEAD WO CONTRASTOrdered B y: Terence Suttongurdeepcharlie on 03-09-2023 [facility] Work Phone: Calcium, [employer] 03-09-2023 Calcium [Moles/Vol] 1.27 mmol/L Normal 1.13-1.33 [facility] Comment on above: Performed By: #### B JOSE MG, CDP #### [facility] [employer] [address] [place] [id number] [employer]: Agustin Logan MD Calcium, Ionizedon 3 Calcium.ionized (Bld) [Moles/Vol] 1.27 mmol/L 1.13 - 1.33 mmol/L [facility] Drug Scr, Abuse, Uron 2022 Amphetamine(s),Ur Positive Abnormal NEG [facility] Comment on above: Result Comment: (Positive cutoff 1000 ng/mL) Performed By: #### B MP, MG, CDP #### [facility] [address] [place] [id number] [employer]: Agustin Logan MD Barbiturate(s),Ur Negative Normal NEG [facility] Comment on above: Result Comment: (Positive cutoff 200 ng/mL) Performed By: #### B MP, MG, CDP #### [employer] [address] [place] [address] [employer]: Agustin Logan MD Benzodiazepine(s) Negative Normal NEG [facility] Comment on above: Result Comment: (Positive cutoff 200 ng/mL) Performed By: #### B MP, MG, CDP #### [facility] [address] [place] [address] [employer]: Agustin Logan MD Cannabinoid(s),Ur Negative Normal NEG [facility] Comment on above: Result Comment: (Positive cutoff 50 ng/mL) Performed By: #### B MP, MG, CDP #### [employer] [address] [place] [address] [employer]: Agustin Logan MD Cocaine Metabolite Negative Normal NEG [facility] Comment on above: Result Comment: (Positive cutoff 300 ng/mL) Performed By: #### B MP, MG, CDP #### [facility] [address] [place] [address] [employer]: Agustin Logan MD Fentanyl, Urine Positive Abnormal NEG [facility] Comment on above: Result Comment: (Positive cutoff 5 ng/ml) Performed By: #### B MP, MG, CDP #### [facility] [address] [place] [address] [employer]: Agustin Logan MD Interpretive Info Assay provides medic al screening only. The absence of expected drug(s) and/or Normal [facility] Comment on above: Result Comment: meta bolite(s) may indicate diluted or adulterated urine, limitations of testing or timing of collection. Testing for legal purposes should be confirmed by another method. To request confirmation of test result, please call the lab within 7 days of sample submission. Performed By: #### B MP MG, CDP #### [employer] [address] [place] [phone] [employer]: Agustin Logan MD Methadone Ql (U) Negative Normal NEG [facility] Comment on above: Result Comment: (Positive cutoff 300 ng/mL) Performed By: #### B MP MG, CDP #### [facility] [address] [place] [address] [employer]: Agustin Logan MD Opiate(s), Ur Negative Normal NEG [facility] Comment on above: Result Comment: (Positive cutoff 300 ng/mL) Performed By: #### B MP MG, CDP #### [employer] [address] [place] [address] [employer]: Agustin Logan MD Oxycodone, Urine Negative Normal NEG [facility] Comment on above: Result Comment: (Positive cutoff 100 ng/mL) Performed By: #### B MP, MG, CDP #### [employer] [address] [place] [address] [employer]: Agustin Logan MD Phencyclidine, Ur Negative Normal NEG [facility] Comment on above: Result Comment: (Positive cutoff 25 ng/mL) Performed By: #### B MP, MG, CDP #### [employer] [address] [place] [address] [employer]: Agustin Logan MD Drug screen multi urineon Amphetamines Ql (U) Positive Abnormal NEGATIVE [facility] Comment on above: (Positive cutoff 1000 ng/mL) Barbiturates Screen Ql (U) Negative NEGATIVE [facility] Comment on above: (Positive cutoff 200 ng/mL) Benzodiazepines Ql (U) Negative NEGATIVE [facility] Comment on above: (Positive cutoff 200 ng/mL) Cannabinoids Screen Ql (U) Negative NEGATIVE [facility] Comment on above: (Positive cutoff 50 ng/mL) Cocaine Ql (U) Negative NEGATIVE [facility] Comment on above: (Positive cutoff 300 ng/mL) fentaNYL Ql (U) Positive Abnormal NEGATIVE [facility] [employer] [facility] Comment on above: (Positive cutoff 5 ng/ml) Interpretation and review of laboratory results Abnormal [facility] [employer] [facility] Methadone Ql (U) Negative NEGATIVE [facility] [employer] [facility] Comment on above: (Positive cutoff 300 ng/mL) Opiates Screen Ql (U) Negative NEGATIVE [facility] Comment on above: (Positive cutoff 300 ng/mL) oxyCODONE Ql (U) Negative NEGATIVE [facility] [employer] Comment on above: (Positive cutoff 100 ng/mL) Phencyclidine Ql (U) Negative NEGATIVE [facility] Comment on above: (Positive cutoff 25 ng/mL) Test Information Assay provides medic al screening only. The absence of expected drug(s) and/or metabolite(s) may indicate diluted or adulterated urine, limitations of testing or timing of collection. [facility] Comment on above: Testing for legal pu rposes should be confirmed by another method. To request confirmation of test result, please call the lab within 7 days of sample submission. [facility] Ethanolon 03-09-2023 Ethanol percent <0.010 NINF - 0.010 % [facility] Ethanolamine [Mass/Vol] mg/dL NINF - 10 mg/dL [facility] Ethanol Alcoholon 03-09-2023 Ethanol [Mass/Vol] mg/dL Normal <10 [facility] Comment on above: Performed By: #### B MP, MG, CDP #### [facility] [address] [place] [address] [employer]: Agustin Logan MD Ethanol percent <0.010 Normal <0.010 [facility] Comment on above: Performed By: #### B MP, MG, CDP #### [facility] [address] [place] [address] [employer]: Agustin Logan MD Magnesiumon 03-09-2023 Magnesium [Mass/Vol] 2.1 mg/dL Normal 1.6-2.6 [facility] Comment on above: Performed By: #### B MP, MG, CDP #### [facility] [address] [place] [address] [employer]: Agustin Logan MD Magnesium [Mass/Vol] 2.1 mg/dL 1.6 - 2.6 mg/dL [facility] No Panel Informationon 03-09 [facility] Radiology Study observation (narrative) [facility] [id number] 03-09-2023 SARS-CoV-2 (COVID-19) RNA MAXIM+probe Ql (Unsp spec) Not detected Normal NOTDET [facility] Comment on above: Result Comment: Rapid NAAT: The specimen is NEGATIVE for SARS-CoV-2, the novel coronavirus associated with COVID-19. The ID NOW COVID-19 assay is designed to detect the virus that causes COVID-19 in patients with signs and symptoms of infection who are suspected of COVID-19. An individual without symptoms of COVID-19 and who is not shedding SARS-CoV-2 virus would expect to have a negative (not detected) result in this assay. Negative results should be treated as presumptive and, if inconsistent with clinical signs and symptoms or necessary for patient management, should be tested with an alternative molecular assay. Negative results do not preclude SARS-CoV-2 infection and should not be used as the sole basis for patient management decisions. Fact sheet for Healthcare Providers: https://www.fda.gov/media/079990/download Fact sheet for Patients: https://www.fda.gov/media/378472/download Methodology: Isothermal Nucleic Acid Amplification Performed By: #### C OVRB #### [facility] [address] [place], [place] [phone] [employer]: Agustin Logan MD TSHon 03-09-2023 TSH Qn 2.00 m[IU]/L [facility] Thyroid Stim. Horm.on 2022 Thyroid Stim. Horm. 2.00 uIU/mL Normal 0.30-5.00 [facility] Comment on above: Performed By: #### B JOSE MG, CDP #### [employer] [address] [place], [place] [phone] [employer]: Agustin Logan MD Troponinon 03-09-2023 Troponin, High Sens <6 Normal 0-14 [facility] Comment on above: Result Comment: High Sensitivity Troponin values cannot be compared with other Troponin methodologies. Performed By: #### B JOSE MG, CDP #### [employer] [address] [place], [place] [phone] [employer]: Agustin Logan MD Troponin I.cardiac High sensitivity method [Mass/Vol] ng/L 0 - 14 ng/L [facility] Comment on above: High Sensitivity Tro ponin values cannot be compared with other Troponin methodologies. CT soft tissue neck wo conon 02-28-2023 CT soft tissue neck wo [place] [address] CT Scan Report Signed Patient: Felisa Jones MR#: [id number] 49 : 1985 Acct:[id number] Age/Sex: 37 / F ADM Date: 02/22/23 Loc: Room: 5M3004-6 Type: ADM IN Attending Dr: Gerald Hines MD Copies to: MD Deanna Blue ANP-BC Ordering Provider: TONY Mae Date of Service: 02/28/23 CT/CT soft tissue neck wo con: recent head injury, left soft tissue neck pain CT soft tissue neck wo con 02/28/2023 3:08 PM SIGNS AND SYMPTOMS: recent head injury, left soft tissue neck pain TECHNIQUE: Multidetector CT axial slices of the soft tissues of the neck were obtained without IV contrast . Sagittal and coronal reformats were reconstructed. CT was performed with one or more of the following dose reduction techniques: Automated exposure control, adjustment of the mA and/or kV according to patient size, or use of iterative reconstruction technique. COMPARISON: None FINDINGS: Soft tissues of the orbits are within normal limits. The soft tissues of the infratemporal fossa fossa structures show no acute abnormality. Mucosal surfaces of the nasopharynx, oropharynx, hypopharynx, glottic, and subglottic airways are grossly unremarkable. The parotid glands, submandibular, and the thyroid gland are within normal limits. The carotid and jugular circulations are within normal limits. The visualized lung parenchyma shows no acute pathology. There is redemonstration of a minimally displaced fracture of the right sphenoid bone. The skull base, craniocervical junction, atlantoaxial joints are within normal limits. The paranasal sinuses are within normal limits. CT/CT soft tissue neck wo con IMPRESSION: No evidence of mass, hematoma, or significant soft tissue swelling. The paranasal sinuses are well aerated. There is redemonstration of a minimally displaced fracture of the right sphenoid bone. Impression dictated by: Claudette Grijalva M.D.02/28/2023 4:32 PM Dictation Location: [place] [address] Transcribed By: [facility] 02/28/23 1632 Dictated By: Claudette Grijalva II, MD 02/28/23 1623 Signed By: 02/28/23 16[address] [facility] [address] [facility] head/brain wo [facility] [place] [address] CT Scan Report Signed Patient: Felisa Jones MR#: [id number] 49 : 1985 Acct:[id number] Age/Sex: 37 / F ADM Date: 02/22/23 Loc: Room: 6S2023-6 Type: ADM IN Attending Dr: Gerald Hines MD Copies to: Gerald Hines MD Ordering Provider: Gerald Hines MD Date of Service: 02/24/23 CT/CT head/brain wo con: worsening headache, interval imaging Unenhanced head CT TECHNIQUE: Contiguous axial imaging of the head. The CT exam was performed using one or more the following dose reduction techniques: Automated exposure control, adjustment of the MA and/or Kv according to patient size, or use of the iterative reconstruction technique. COMPARISON: No recent HISTORY: Head pressure. Recent intracranial hemorrhage VENTRICLES: Within normal limits ATROPHY: None BRAIN PARENCHYMA: Adequate lopez-white matter differentiation identified. HEMORRHAGE: Acute left subdural hemorrhage overlying the temporal lobe and layering over the tentorium present. 3 to 4 mm thickness. HERNIATION: No mass effect or herniation INFARCTION: No recent vascular distribution infarction is seen. EXTRA-AXIAL FLUID COLLECTIONS None MIDBRAIN: Unremarkable KRISTOPHER: Unremarkable MEDULLA: Unremarkable SINUSES: Unremarkable ORBITS: Grossly unremarkable MASTOIDS: Unremarkable BONY STRUCTURES Intact ADDITIONAL FINDINGS: CT/CT head/brain wo con IMPRESSION: Small acute left subdural hematoma in the temporal region and layering over the tentorium. Impression dictated by: Eitan Grace M.D.02/24/2023 8:29 PM Dictation Location: [place] [address] Transcribed By: [facility] 02/24/232028 Dictated By: Eitan Grace DO 02/24/232024 Signed By: 02/24/232028 Normal [facility] Complete Blood Count Auto Di ffon 02-23-2023 Basophils (Bld) [#/Vol] 0.0 10*3/uL Normal 0.0-0.2 [facility] Comment on above: Result Comment: PERF ORMED BY: [place] [address] PATHOLOGIST HEALTH SERVICES DIRECTOR MARITO MARIA M.D. Performed By: #### P AB, CBC, CMP #### [facility] [address] [place] [address] Basophils/100 WBC (Bld) 0.4 % Normal . [facility] Comment on above: Performed By: #### P AB, CBC, CMP #### [facility] [address] [place] [address] Eosinophils (Bld) [#/Vol] 0.2 10*3/uL Normal 0.0-0.45 [facility] Comment on above: Performed By: #### P AB, CBC, CMP #### [address] [place] [address] [place] Eosinophils/100 WBC (Bld) 3.4 % Normal . [facility] Comment on above: Performed By: #### P AB, CBC, CMP #### [facility] [address] Erythrocyte distribution width (RBC) [Ratio] 14.6 % Normal 11.9-15.3 [facility] Comment on above: Performed By: #### P AB, CBC, CMP #### [address] Hematocrit (Bld) [Volume fraction] 37.6 % Normal 34.0-46.4 [facility] Comment on above: Performed By: #### P AB, CBC, CMP #### [address] Hemoglobin (Bld) [Mass/Vol] 12.4 g/dL Normal 11.8-15.4 [facility] Comment on above: Performed By: #### P AB, CBC, CMP #### [address] Lymphocytes (Bld) [#/Vol] 1.4 10*3/uL Normal 1.00-4.8 [facility] Comment on above: Performed By: #### P AB, CBC, CMP #### [address] Lymphocytes/100 WBC (Bld) 20.2 % Normal . [facility] Comment on above: Performed By: #### P AB, CBC, CMP #### [address] MCH (RBC) [Entitic mass] 28.9 pg Normal 24.7-34.3 [facility] Comment on above: Performed By: #### P AB, CBC, CMP #### [address] MCV (RBC) [Entitic vol] 87.7 fL Normal 80-100 [facility] Comment on above: Performed By: #### P AB, CBC, CMP #### [facility] [address] Mean Corpuscular HGB Conc 33.0 g/dL Normal 32.0-35.0 [facility] Comment on above: Performed By: #### P AB, CBC, CMP #### [facility] [address] Monocytes (Bld) [#/Vol] 0.5 10*3/uL Normal 0.0-0.8 [facility] Comment on above: Performed By: #### P AB, CBC, CMP #### [address] Monocytes/100 WBC (Bld) 6.6 % Normal . [facility] Comment on above: Performed By: #### P AB, CBC, CMP #### [address] Neutrophils (Bld) [#/Vol] 4.9 10*3/uL Normal 1.8-7.7 [facility] Comment on above: Performed By: #### P AB, CBC, CMP #### [address] Neutrophils/100 WBC (Bld) 69.4 % Normal . [facility] Comment on above: Performed By: #### P AB, CBC, CMP #### [address] NRBC% 0.2 /100{WBC} Normal 0-0.5 [facility] Comment on above: Performed By: #### P AB, CBC, CMP #### [facility] [address] [place] [address] [place] Platelet mean volume (Bld) [Entitic vol] 7.4 fL Normal 6.3-10.7 [facility] Comment on above: Performed By: #### P AB, CBC, CMP #### [facility] [address] [place] [address] [place] Platelets (Bld) [#/Vol] 280 10*3/uL Normal 150-450 [facility] Comment on above: Performed By: #### P AB, CBC, CMP #### [facility] [address] [place] [address] RBC (Bld) [#/Vol] 4.29 10*6/uL Normal 3.60-5.00 [facility] Comment on above: Performed By: #### P AB, CBC, CMP #### [address] WBC (Bld) [#/Vol] 7.1 10*3/uL Normal 3.8-11.6 [facility] Comment on above: Performed By: #### P AB, CBC, CMP #### [address] Comprehensive Metabolic Pane mariano 02-23-2023 Albumin [Mass/Vol] 4.4 g/dL Normal 3.5-5.7 [facility] Comment on above: Performed By: #### P AB, CBC, CMP #### [address] Albumin/Globulin [Mass ratio] 1.3 {ratio} Normal [facility] Comment on above: Performed By: #### P AB, CBC, CMP #### [address] ALP [Catalytic activity/Vol] 124 U/L High 34-104 [facility] Comment on above: Performed By: #### P AB, CBC, CMP #### [address] ALT [Catalytic activity/Vol] 104 U/L High 7-52 [facility] Comment on above: Performed By: #### P AB, CBC, CMP #### [address] Anion gap [Moles/Vol] 11.3 mmol/L Normal 6.0-15.0 [facility] Comment on above: Performed By: #### P AB, CBC, CMP #### [facility] [address] [place] [address] AST [Catalytic activity/Vol] 49 U/L High 13-39 [facility] Comment on above: Performed By: #### P AB, CBC, CMP #### [facility] [address] [place] [address] [place] Bilirubin [Mass/Vol] 0.3 mg/dL Normal 0.3-1.0 [facility] Comment on above: Performed By: #### P AB, CBC, CMP #### [facility] [address] [place] [address] [place] Calcium [Mass/Vol] 9.4 mg/dL Normal 8.6-10.3 [facility] Comment on above: Performed By: #### P AB, CBC, CMP #### [facility] [address] [place] [address] [place] Chloride [Moles/Vol] 106 mmol/L Normal 98-107 [facility] Comment on above: Performed By: #### P AB, CBC, CMP #### [facility] [address] [place] [address] [place] CO2 [Moles/Vol] 24.6 mmol/L Normal 21.0-31.0 [facility] Comment on above: Performed By: #### P AB, CBC, CMP #### [facility] [address] [place] [address] [place] Creatinine [Mass/Vol] 0.67 mg/dL Normal 0.60-1.20 [facility] Comment on above: Performed By: #### P AB, CBC, CMP #### [facility] [address] [place] [address] [place] Creatinine Clr Calc Pharmacy 111.80 [facility] Comment on above: Performed By: #### P AB, CBC, CMP #### [facility] [address] [place] [address] [place] GFR/1.73 sq M.predicted MDRD (S/P/Bld) [Vol rate/Area] mL/min/{1.73_m2} [facility] Comment on above: Performed By: #### P AB, CBC, CMP #### [facility] [address] [place] [address] [place] Globulin (S) [Mass/Vol] 3.5 g/dL [facility] Comment on above: Performed By: #### P AB, CBC, CMP #### [facility] [address] Glucose [Mass/Vol] 89 mg/dL Normal 70-100 [facility] Comment on above: Result Comment: [facility] Glucose Reference Range is dependent on time and content of last meal. Glucose of more than 200 mg/dL in a nonstressed, ambulatory subject supports the diagnosis of Diabetes Mellitus. ADA recommended reference range Performed By: #### P AB, CBC, CMP #### [facility] [address] Potassium [Moles/Vol] 3.9 mmol/L Normal 3.5-5.1 [facility] Comment on above: Performed By: #### P AB, CBC, CMP #### [address] Protein [Mass/Vol] 7.9 g/dL Normal 6.4-8.9 [facility] Comment on above: Performed By: #### P AB, CBC, CMP #### [address] Sodium [Moles/Vol] 138 mmol/L Normal 136-145 [facility] Comment on above: Performed By: #### P AB, CBC, CMP #### [place] [address] [place] Urea nitrogen [Mass/Vol] 16 mg/dL Normal 7-25 [facility] Comment on above: Performed By: #### P AB, CBC, CMP #### [place] [address] [place] Prealbuminon 02-23-2023 Prealbumin [Mass/Vol] 28.6 mg/dL Normal 17.0-34.0 [facility] Comment on above: Result Comment: PERF ORMED BY: [place] [address] PATHOLOGIST HEALTH SERVICES DIRECTOR MARITO MARIA M.D. Performed By: #### P AB, CBC, CMP #### [address] [place] [address] [facility] Basic Metab w/rfx MGon 02-21 Anion gap [Moles/Vol] 11 mmol/L Normal 9-17 [facility] Comment on above: Performed By: #### B MPX #### [address] [address] [employer]: Agustin Logan MD Calcium [Mass/Vol] 9.0 mg/dL Normal 8.6-10.4 [facility] Comment on above: Performed By: #### B MPX #### [address] [address] [employer]: Agustin Logan MD Chloride [Moles/Vol] 105 mmol/L Normal 98-107 [facility] Comment on above: Performed By: #### B MPX #### [address] [address] [employer]: Agustin Logan MD CO2 [Moles/Vol] 24 mmol/L Normal 20-31 [facility] Comment on above: Performed By: #### B MPX #### [address] [address] [employer]: Agustin Logan MD Creatinine [Mass/Vol] 0.51 mg/dL Normal 0.50-0.90 [facility] Comment on above: Performed By: #### B MPX #### [address] [address] [employer]: Agustin Logan MD GFR/1.73 sq M.predicted among non-blacks MDRD (S/P/Bld) [Vol rate/Area] mL/min/{1.73_m2} Normal >60 [facility] Comment on above: Result Comment: These results are not intended for use in patients <18 years of age. eGFR results are calculated without a race factor using the 2020 CKD-EPI equation. Careful clinical correlation is recommended, particularly when comparing to results calculated using previous equations. The CKD-EPI equation is less accurate in patients with extremes of muscle mass, extra-renal metabolism of creatine, excessive creatine ingestion, or following therapy that affects renal tubular secretion. Performed By: #### B MPX #### [facility] [address] [place] [address] [employer]: Agustin Logan MD Glucose [Mass/Vol] 94 mg/dL Normal 70-99 [facility] Comment on above: Performed By: #### B MPX #### [facility] [address] [place] [address] [employer]: Agustin Logan MD Potassium [Moles/Vol] 4.2 mmol/L Normal 3.7-5.3 [facility] Comment on above: Performed By: #### B MPX #### [facility] [address] [place] [address] [employer]: Agustin Logan MD Sodium [Moles/Vol] 140 mmol/L Normal 135-144 [facility] Comment on above: Performed By: #### B MPX #### [facility] [address] [place] [address] [employer]: Agustin Logan MD Urea nitrogen [Mass/Vol] 11 mg/dL Normal 6-20 [facility] Comment on above: Performed By: #### B MPX #### [facility] [address] [place] [address] [employer]: Agustin Logan MD Basic Metabolic Panel w/ Ref desean to MGon 02-21-2023 Anion gap [Moles/Vol] 11 mmol/L 9 - 17 mmol/L [facility] Calcium [Mass/Vol] 9.0 mg/dL 8.6 - 10. 4 mg/dL [facility] Chloride [Moles/Vol] 105 mmol/L 98 - 107 mmol/L [facility] CO2 [Moles/Vol] 24 mmol/L 20 - 31 mmol/L [facility] Creatinine [Mass/Vol] 0.51 mg/dL 0.50 - 0.90 mg/dL [facility] GFR/1.73 sq M.predicted MDRD (S/P/Bld) [Vol rate/Area] - PINF [facility] Comment on above: These results are not intended for use in patients <18 years of age. eGFR results are calculated without a race factor using the 2020 CKD-EPI equation. Careful clinical correlation is recommended, particularly when comparing to results calculated using previous equations. The CKD-EPI equation is less accurate in patients with extremes of muscle mass, extra-renal metabolism of creatine, excessive creatine ingestion, or following therapy that affects renal tubular secretion. Glucose [Mass/Vol] 94 mg/dL 70 - 99 mg/dL [facility] Potassium [Moles/Vol] 4.2 mmol/L 3.7 - 5.3 mmol/L [facility] Sodium [Moles/Vol] 140 mmol/L 135 - 144 mmol/L [facility] Urea nitrogen [Mass/Vol] 11 mg/dL 6 - 20 mg/dL [facility] Basic Metab w/rfx MGon 02-20 Anion gap [Moles/Vol] 14 mmol/L Normal 9-17 [facility] Comment on above: Performed By: #### B MPX #### [facility] Center[facility] LLC[employer] [address] [place] [address] [employer]: Agustin Logan MD Calcium [Mass/Vol] 8.7 mg/dL Normal 8.6-10.4 [facility] Comment on above: Performed By: #### B MPX #### [facility] [place], [place] [phone] [employer]: Agustin Logan MD Chloride [Moles/Vol] 104 mmol/L Normal 98-107 [facility] Comment on above: Performed By: #### B MPX #### [facility] LLC[employer] [address] [place] [address] [phone] [employer]: Agustin Logan MD CO2 [Moles/Vol] 20 mmol/L Normal 20-31 [facility] Comment on above: Performed By: #### B MPX #### [facility] [address] [place] [address] [employer]: Agustin Logan MD Creatinine [Mass/Vol] 0.48 mg/dL Low 0.50-0.90 [facility] Comment on above: Performed By: #### B MPX #### [address] [address] [employer]: Agustin Logan MD GFR/1.73 sq M.predicted among non-blacks MDRD (S/P/Bld) [Vol rate/Area] mL/min/{1.73_m2} Normal >60 [facility] Comment on above: Result Comment: These results are not intended for use in patients <18 years of age. eGFR results are calculated without a race factor using the 2020 CKD-EPI equation. Careful clinical correlation is recommended, particularly when comparing to results calculated using previous equations. The CKD-EPI equation is less accurate in patients with extremes of muscle mass, extra-renal metabolism of creatine, excessive creatine ingestion, or following therapy that affects renal tubular secretion. Performed By: #### B MPX #### [address] [address] [employer]: Agustin Logan MD Glucose [Mass/Vol] 93 mg/dL Normal 70-99 [facility] Comment on above: Performed By: #### B MPX #### [facility] [address] [place] [address] [employer]: Agustin Logan MD Potassium [Moles/Vol] 4.0 mmol/L Normal 3.7-5.3 [facility] Comment on above: Performed By: #### B MPX #### [facility] [address] [place] [phone] [employer]: Agustin Logan MD Sodium [Moles/Vol] 138 mmol/L Normal 135-144 [facility] Comment on above: Performed By: #### B MPX #### [facility] [address] [place], [place] [phone] [employer]: Agustin Logan MD Urea nitrogen [Mass/Vol] 13 mg/dL Normal 6-20 [facility] Comment on above: Performed By: #### B MPX #### [facility] [address] [place], [place] [phone] [employer]: Agustin Logan MD Basic Metabolic Panel w/ Ref desean to MGon 02-20-2023 Anion gap [Moles/Vol] 14 mmol/L 9 - 17 mmol/L [facility] [employer] [facility] Calcium [Mass/Vol] 8.7 mg/dL 8.6 - 10. 4 mg/dL [facility] Chloride [Moles/Vol] 104 mmol/L 98 - 107 mmol/L [facility] [employer] Trip CO2 [Moles/Vol] 20 mmol/L 20 - 31 mmol/L [facility] BTC Trip Creatinine [Mass/Vol] 0.48 mg/dL Low 0.50 - 0.90 mg/dL [facility] [employer] Trip GFR/1.73 sq M.predicted MDRD (S/P/Bld) [Vol rate/Area] - PINF [facility] Comment on above: These results are not intended for use in patients <18 years of age. eGFR results are calculated without a race factor using the 2020 CKD-EPI equation. Careful clinical correlation is recommended, particularly when comparing to results calculated using previous equations. The CKD-EPI equation is less accurate in patients with extremes of muscle mass, extra-renal metabolism of creatine, excessive creatine ingestion, or following therapy that affects renal tubular secretion. Glucose [Mass/Vol] 93 mg/dL 70 - 99 mg/dL [facility]ENTER[facility] Interpretation and review of laboratory results Abnormal [facility] BTC Trip Potassium [Moles/Vol] 4.0 mmol/L 3.7 - 5.3 mmol/L [facility] Sodium [Moles/Vol] 138 mmol/L 135 - 144 mmol/L [facility]ENTER[facility] Urea nitrogen [Mass/Vol] 13 mg/dL 6 - 20 mg/dL [facility] Basic Metab w/rfx MGon 02-19 Anion gap [Moles/Vol] 9 mmol/L Normal 9-17 [facility] Comment on above: Performed By: #### U A #### [address] [address] [employer]: Agustin Logan MD Calcium [Mass/Vol] 8.9 mg/dL Normal 8.6-10.4 [facility] Comment on above: Performed By: #### U A #### [address] [address] [employer]: Agustin Logan MD Chloride [Moles/Vol] 105 mmol/L Normal 98-107 [facility] Comment on above: Performed By: #### U A #### [address] [address] [employer]: Agustin Logan MD CO2 [Moles/Vol] 24 mmol/L Normal 20-31 [facility] Comment on above: Performed By: #### U A #### [address] [address] [employer]: Agustin Logan MD Creatinine [Mass/Vol] 0.42 mg/dL Low 0.50-0.90 [facility] Comment on above: Performed By: #### U A #### [address] [address] [employer]: Agustin Logan MD GFR/1.73 sq M.predicted among non-blacks MDRD (S/P/Bld) [Vol rate/Area] mL/min/{1.73_m2} Normal >60 [facility] Comment on above: Result Comment: These results are not intended for use in patients <18 years of age. eGFR results are calculated without a race factor using the 2020 CKD-EPI equation. Careful clinical correlation is recommended, particularly when comparing to results calculated using previous equations. The CKD-EPI equation is less accurate in patients with extremes of muscle mass, extra-renal metabolism of creatine, excessive creatine ingestion, or following therapy that affects renal tubular secretion. Performed By: #### U A #### [facility] [address] [place] [address] [employer]: Agustin Logan MD Glucose [Mass/Vol] 85 mg/dL Normal 70-99 [facility] Comment on above: Performed By: #### U A #### [facility] [address] [place] [address] [employer]: Agustin Logan MD Potassium [Moles/Vol] 4.1 mmol/L Normal 3.7-5.3 [facility] Comment on above: Performed By: #### U A #### [facility] [address] [place] [address] [employer]: Agustin Logan MD Sodium [Moles/Vol] 138 mmol/L Normal 135-144 [facility] Comment on above: Performed By: #### U A #### [facility] [address] [place] [address] [employer]: Agustin Logan MD Urea nitrogen [Mass/Vol] 8 mg/dL Normal 6-20 [facility] Comment on above: Performed By: #### U A #### [address] [address] [employer]: Agustin Logan MD Basic Metabolic Panel w/ Ref desean to MGon 02-19-2023 Anion gap [Moles/Vol] 9 mmol/L 9 - 17 mmol/L [facility] Calcium [Mass/Vol] 8.9 mg/dL 8.6 - 10. 4 mg/dL [facility] Chloride [Moles/Vol] 105 mmol/L 98 - 107 mmol/L [facility] CO2 [Moles/Vol] 24 mmol/L 20 - 31 mmol/L [facility] Creatinine [Mass/Vol] 0.42 mg/dL Low 0.50 - 0.90 mg/dL [facility] GFR/1.73 sq M.predicted MDRD (S/P/Bld) [Vol rate/Area] - PINF [facility] Comment on above: These results are not intended for use in patients <18 years of age. eGFR results are calculated without a race factor using the 2020 CKD-EPI equation. Careful clinical correlation is recommended, particularly when comparing to results calculated using previous equations. The CKD-EPI equation is less accurate in patients with extremes of muscle mass, extra-renal metabolism of creatine, excessive creatine ingestion, or following therapy that affects renal tubular secretion. Glucose [Mass/Vol] 85 mg/dL 70 - 99 mg/dL [facility] Interpretation and review of laboratory results Abnormal [facility] Potassium [Moles/Vol] 4.1 mmol/L 3.7 - 5.3 mmol/L [facility] Sodium [Moles/Vol] 138 mmol/L 135 - 144 mmol/L [facility] Urea nitrogen [Mass/Vol] 8 mg/dL 6 - 20 mg/dL [facility] CBC with Auto Differentialon 02-19-2023 Basophils (Bld) [#/Vol] [facility] Basophils/100 WBC (Bld) 0 % 0 - 2 % [facility] Eosinophils (Bld) [#/Vol] 0.17 10*3/uL [facility] Eosinophils/100 WBC (Bld) 3 % 1 - 4 % [facility] Erythrocyte distribution width (RBC) [Ratio] 13.7 % 11.8 - 14.4 % [facility] Hematocrit (Bld) [Volume fraction] 34.9 % Low 36.3 - 47.1 % [facility] Hemoglobin (Bld) [Mass/Vol] 11.1 g/dL Low 11.9 - 15.1 g/dL [facility] Immature granulocytes (Bld) [#/Vol] 0.03 10*3/uL [facility] Immature granulocytes/100 WBC (Bld) 1 % High 0 [facility] Interpretation and review of laboratory results Abnormal [facility] Lymphocytes/100 WBC (Bld) 23 % Low 24 - 43 % [facility] Lymphocytes/100 WBC (Bld) 1.39 % [facility] MCH (RBC) [Entitic mass] 29.4 pg 25.2 - 33.5 pg [facility] MCHC (RBC) [Mass/Vol] 31.8 g/dL 28.4 - 34.8 g/dL [facility] MCV (RBC) [Entitic vol] 92.6 fL 82.6 - 102.[address] [facility] Monocytes/100 WBC (Bld) 6 % 3 - 12 % [facility] Monocytes/100 WBC (Bld) 0.37 % [facility] Neutrophils/100 WBC (Bld) 67 % High 36 - 65 % [facility] Nucleated RBC/100 WBC (Bld) [Ratio] 0.0 % 0.0 per 100 WBC [facility] Platelet mean volume (Bld) [Entitic vol] 9.6 fL 8.1 - 13.5 fL [facility] Platelets (Bld) [#/Vol] 251 10*3/uL [facility] RBC (Bld) [#/Vol] 3.77 10*6/uL Low 3.95 - 5.11 m/uL [facility] Segmented neutrophils/100 WBC (Bld) 4.05 % [facility] WBC other (Bld) [#/Vol] 6.0 [facility] CBC with Diffon 02-19-2023 Abs. Basophil <0.03 Normal 0.00-0.20 [facility] Comment on above: Performed By: #### U A #### [employer] [address] [place] [address] [phone] [employer]: Agustin Logan MD Abs.Imm.Granulocyte 0.03 k/uL Normal 0.00-0.30 [facility] Comment on above: Performed By: #### U A #### [employer] [address] [place] [address] [employer]: Agustin Logan MD Abs.Neutrophil (Seg) 4.05 k/uL Normal 1.50-8.10 [facility] Comment on above: Performed By: #### U A #### [address] [address] [employer]: Agustin Logan MD Basophils/100 WBC (Bld) 0 % Normal 0-2 [facility] Comment on above: Performed By: #### U A #### [address] [address] [employer]: Agustin Logan MD Eosinophils (Bld) [#/Vol] 0.17 10*3/uL Normal 0.00-0.44 [facility] Comment on above: Performed By: #### U A #### [address] [address] [employer]: Agustin Logan MD Eosinophils/100 WBC (Bld) 3 % Normal 1-4 [facility] Comment on above: Performed By: #### U A #### [address] [address] [employer]: Agustin Logan MD Erythrocyte distribution width (RBC) [Ratio] 13.7 % Normal 11.8-14.4 [facility] Comment on above: Performed By: #### U A #### [place] [address] [employer]: Agustin Logan MD Hematocrit (Bld) [Volume fraction] 34.9 % Low 36.3-47.1 [facility] Comment on above: Performed By: #### U A #### [place] [address] [employer]: Agustin Logan MD Hemoglobin (Bld) [Mass/Vol] 11.1 g/dL Low 11.9-15.1 [facility] Comment on above: Performed By: #### U A #### [address] [address] [employer]: Agustin Logan MD Immature granulocytes/100 WBC (Bld) 1 % High 0 [facility] Comment on above: Performed By: #### U A #### [address] [address] [employer]: Agustin Logan MD Lymphocytes (Bld) [#/Vol] 1.39 10*3/uL Normal 1.10-3.70 [facility] Comment on above: Performed By: #### U A #### [address] [address] [employer]: Agustin Logan MD Lymphocytes/100 WBC (Bld) 23 % Low 24-43 [facility] Comment on above: Performed By: #### U A #### [address] [address] [employer]: Agustin Logan MD MCH (RBC) [Entitic mass] 29.4 pg Normal 25.2-33.5 [facility] Comment on above: Performed By: #### U A #### [address] [address] [employer]: Agustin Logan MD MCHC (RBC) [Mass/Vol] 31.8 g/dL Normal 28.4-34.8 [facility] Comment on above: Performed By: #### U A #### [address] [address] [employer]: Agustin Logan MD MCV (RBC) [Entitic vol] 92.6 fL Normal 82.6-102.9 [facility] Comment on above: Performed By: #### U A #### [address] [address] [employer]: Agustin Logan MD Monocytes (Bld) [#/Vol] 0.37 10*3/uL Normal 0.10-1.20 [facility] Comment on above: Performed By: #### U A #### [address] [address] [employer]: Agustin Logan MD Monocytes/100 WBC (Bld) 6 % Normal 3-12 [facility] Comment on above: Performed By: #### U A #### [address] [address] [employer]: Agustin Logan MD Neutrophil (Seg) 67 % High 36-65 [facility] Comment on above: Performed By: #### U A #### [address] [address] [employer]: Agustin Logan MD NRBC Automated 0.0 per 100 WBC Normal 0.0 [facility] Comment on above: Performed By: #### U A #### [address] [address] [employer]: Agustin Logan MD Platelet mean volume (Bld) [Entitic vol] 9.6 fL Normal 8.1-13.5 [facility] Comment on above: Performed By: #### U A #### [address] [address] [employer]: Agustin Logan MD Platelets (Bld) [#/Vol] 251 10*3/uL Normal 138-453 [facility] Comment on above: Performed By: #### U A #### [address] [address] [employer]: Agustin Logan MD RBC (Bld) [#/Vol] 3.77 10*6/uL Low 3.95-5.11 [facility] Comment on above: Performed By: #### U A #### [address] [place] [address] [employer]: Agustin Logan MD WBC (Bld) [#/Vol] 6.0 10*3/uL Normal 3.5-11.3 [facility] Comment on above: Performed By: #### U A #### [facility] [address] [place] [address] [employer]: Agustin Logan MD CT HEAD WO CONTRASTon 2022 Small subdural hemor rhage adjacent to the left cerebral hemisphere that is similar in size compared to prior exam. Stable small hemorrhagic contusion in the left temporal lobe with adjacent edema. [facility] EXAMINATION: CT OF THE HEAD WITHOUT CONTRAST 02/18/2023 10:49 am TECHNIQUE: CT of the head was performed without the administration of intravenous contrast. Automated exposure control, iterative reconstruction, and/or weight based adjustment of the mA/kV was utilized to reduce the radiation dose to as low as reasonably achievable. COMPARISON: CT brain performed 02/14/2023. HISTORY: ORDERING SYSTEM PROVIDED HISTORY: headaches post sdh sah tbi TECHNOLOGIST PROVIDED HISTORY: headaches post sdh sah tbi Is the patient ?->No Reason for Exam: fall FINDINGS: BRAIN/VENTRICLES: There is redemonstration of subdural hemorrhage adjacent to the left cerebral hemisphere that is similar in size compared to prior examination measuring approximately 5 mm in greatest thickness. There is a stable hemorrhagic contusion in the left temporal lobe with adjacent edema. There is mild mass effect. There is no significant midline shift. The ventricles are unremarkable. The infratentorial structures are unremarkable. ORBITS: The visualized portion of the orbits demonstrate no acute abnormality. SINUSES: The visualized paranasal sinuses and mastoid air cells demonstrate no acute abnormality. SOFT TISSUES/SKULL: No acute abnormality of the visualized skull or soft tissues. [facility] Neva Nicole MD - 02/18/2023 EXAMINATION: CT OF THE HEAD WITHOUT CONTRAST 02/18/2023 10:49 am TECHNIQUE: CT of the head was performed without the administration of intravenous contrast. Automated exposure control, iterative reconstruction, and/or weight based adjustment of the mA/kV was utilized to reduce the radiation dose to as low as reasonably achievable. COMPARISON: CT brain performed 02/14/2023. HISTORY: ORDERING SYSTEM PROVIDED HISTORY: headaches post sdh sah tbi TECHNOLOGIST PROVIDED HISTORY: headaches post sdh sah tbi Is the patient ?->No Reason for Exam: fall FINDINGS: BRAIN/VENTRICLES: There is redemonstration of subdural hemorrhage adjacent to the left cerebral hemisphere that is similar in size compared to prior examination measuring approximately 5 mm in greatest thickness. There is a stable hemorrhagic contusion in the left temporal lobe with adjacent edema. There is mild mass effect. There is no significant midline shift. The ventricles are unremarkable. The infratentorial structures are unremarkable. ORBITS: The visualized portion of the orbits demonstrate no acute abnormality. SINUSES: The visualized paranasal sinuses and mastoid air cells demonstrate no acute abnormality. SOFT TISSUES/SKULL: No acute abnormality of the visualized skull or soft tissues. IMPRESSION: Small subdural hemorrhage adjacent to the left cerebral hemisphere that is similar in size compared to prior exam. Stable small hemorrhagic contusion in the left temporal lobe with adjacent edema. [facility] Radiology Study observation (narrative) [facility] Ammoniaon 02-15-2023 Ammonia (P) [Moles/Vol] 31 umol/L Normal - [facility] Comment on above: Performed By: #### B MPX #### [facility] [place], [place] [phone] [employer]: Agustin Logan MD Ammonia (P) [Moles/Vol] 31 umol/L 11 - 51 umol/L [facility] BLOOD GAS, VENOUSon 02-16-20 23 Carboxyhemoglobin (Bld) [Mass fraction] 1.8 % 0 - 5 % [facility] Comment on above: Reference Range: Non-Smokers 0-2% Average Smoker 2-4% Heavy Smoker <10% HCO3 (Bld) [Moles/Vol] 22.6 mmol/L Low 24 - 30 mmol/L [facility] Interpretation and review of laboratory results Abnormal [facility] Negative Base Excess, Nicola 2.2 mmol/L High 0.0 - 2.0 mmol/L [facility] Oxygen saturation in Blood 89.2 % High 60.0 - 85.0 % [facility] Oxygen/Inspired gas Respiratory system --on ventilator INFORMATION NOT PROVIDED [facility] pCO2, Nicola 41.3 [facility] pH, Nicola 7.357 7.320 - 7.420 [facility] pO2, Nicola 56.9 High [facility] CBC with Auto Differentialon 02-15-2023 Basophils (Bld) [#/Vol] [facility] Immature granulocytes (Bld) [#/Vol] [facility] Interpretation and review of laboratory results Abnormal [facility] Lymphocytes/100 WBC (Bld) 1.40 % [facility] Monocytes/100 WBC (Bld) 0.49 % [facility] Neutrophils/100 WBC (Bld) 67 % High 36 - 65 % [facility] Nucleated RBC/100 WBC (Bld) [Ratio] 0.0 % 0.0 per 100 WBC [facility] Segmented neutrophils/100 WBC (Bld) 4.07 % [facility] WBC other (Bld) [#/Vol] 6.1 [facility] CBC with Diffon 02-15-2023 Abs. Basophil <0.03 Normal 0.00-0.20 [facility] Comment on above: Performed By: #### B JOSE MG, CDP #### [facility] LLC[facility] [address] [place] [address] [employer]: Agustin Logan MD Abs.Imm.Granulocyte <0.03 Normal 0.00-0.30 [facility] Comment on above: Performed By: #### B JOSE MG, CDP #### [employer] [address] [place] [address] [phone] [employer]: Agustin Logan MD Abs.Neutrophil (Seg) 4.07 k/uL Normal 1.50-8.10 [facility] Comment on above: Performed By: #### B JOSE MG, CDP #### [facility] [address] [place] [address] [phone] [employer]: Agustin Logan MD Lymphocytes (Bld) [#/Vol] 1.40 10*3/uL Normal 1.10-3.70 [facility] Comment on above: Performed By: #### B MP MG, CDP #### [facility] [address] [place] [phone] [employer]: Agustin Logan MD Monocytes (Bld) [#/Vol] 0.49 10*3/uL Normal 0.10-1.20 [facility] Comment on above: Performed By: #### B MP, MG, CDP #### [address] [address] [employer]: Agustin Logan MD Neutrophil (Seg) 67 % High 36-65 [facility] Comment on above: Performed By: #### B MP MG, CDP #### [facility] [address] [place] [address] [employer]: Agustin Logan MD NRBC Automated 0.0 per 100 WBC Normal 0.0 [facility] Comment on above: Performed By: #### B JOSE MG, CDP #### [facility] [address] [place] [address] [employer]: Augstin Logan MD WBC (Bld) [#/Vol] 6.1 10*3/uL Normal 3.5-11.3 [facility] Comment on above: Performed By: #### B MP MG, CDP #### [facility] [address] [place] [address] [employer]: Agustin Logan MD Basophils/100 WBC (Bld) 0 % Normal 0-2 [facility] Comment on above: Performed By: #### B MP MG, CDP #### [facility] [address] [place] [address] [employer]: Agustin Logan MD Eosinophils (Bld) [#/Vol] 0.09 10*3/uL Normal 0.00-0.44 [facility] Comment on above: Performed By: #### B MG JOSE, CDP #### [employer] [address] [place] [phone] [employer]: Agustin Logan MD Eosinophils/100 WBC (Bld) 2 % Normal 1-4 [facility] [facility] Comment on above: Performed By: #### B JOSE MG, CDP #### [employer] [address] [place] [address] [employer]: Agustin Logan MD Erythrocyte distribution width (RBC) [Ratio] 14.1 % Normal 11.8-14.4 [facility] Comment on above: Performed By: #### B MG JOSE, CDP #### [employer] [address] [place] [address] [employer]: Agustin Logan MD Hematocrit (Bld) [Volume fraction] 35.3 % Low 36.3-47.1 [facility] Comment on above: Performed By: #### B MG JOSE, CDP #### [employer] [address] [place] [address] [employer]: Agustin Logan MD Hemoglobin (Bld) [Mass/Vol] 11.1 g/dL Low 11.9-15.1 [facility] Comment on above: Performed By: #### B MG JOSE, CDP #### [employer] [address] [place] [address] [employer]: Agustin Logan MD Immature granulocytes/100 WBC (Bld) 0 % Normal 0 [facility]Rep[facility] Comment on above: Performed By: #### B JOSE MG, CDP #### [employer] [address] [place] [address] 64771 [employer]: Agustin Logan MD Lymphocytes/100 WBC (Bld) 23 % Low 24-43 [facility] SECRepunch [facility] Comment on above: Performed By: #### B JOSE MG, CDP #### [employer] [address] [place] [address] [phone] [employer]: Agustin Logan MD MCH (RBC) [Entitic mass] 29.1 pg Normal 25.2-33.5 [facility] Comment on above: Performed By: #### B MP, MG, CDP #### [facility] [address] [place] [address] 35813 [employer]: Agustin Logan MD MCHC (RBC) [Mass/Vol] 31.4 g/dL Normal 28.4-34.8 [facility] Comment on above: Performed By: #### B MP MG, CDP #### [address] [address] [employer]: Agustin Logan MD MCV (RBC) [Entitic vol] 92.4 fL Normal 82.6-102.9 [facility] Comment on above: Performed By: #### B MP, MG, CDP #### [facility] [address] [place] [address] 49388 [employer]: Agustin Logan MD Monocytes/100 WBC (Bld) 8 % Normal 3-12 [facility] Comment on above: Performed By: #### B MP, MG, CDP #### [facility] [employer] [address] [place] [address]78 [employer]: Agustin Logan MD Platelet mean volume (Bld) [Entitic vol] 10.1 fL Normal 8.1-13.5 [facility] Comment on above: Performed By: #### B MP, MG, CDP #### [facility] [address] [place] [address] 61668 [employer]: Agustin Logan MD Platelets (Bld) [#/Vol] 224 10*3/uL Normal 138-453 [facility] Comment on above: Performed By: #### B MP, MG, CDP #### [facility] [address] [place] [address]113 [employer]: Agustin Logan MD RBC (Bld) [#/Vol] 3.82 10*6/uL Low 3.95-5.11 [facility] Comment on above: Performed By: #### B MG JOSE, CDP #### [employer] [address] [place] [address] [phone] [employer]: Agustin Logan MD Calcium, Ionicon 02-15-2023 Calcium [Moles/Vol] 1.14 mmol/L Normal 1.13-1.33 [facility] Comment on above: Performed By: #### I OCAL, VBG #### [facility] [address] [place] [address] [phone] [employer]: Agustin Logan MD Calcium, Ionizedon Calcium.ionized (Bld) [Moles/Vol] 1.14 mmol/L 1.13 - 1.33 mmol/L [facility] Comp Metabolic Profon 7 Albumin [Mass/Vol] 3.4 g/dL Low 3.5-5.2 [facility] Comment on above: Performed By: #### B MG JOSE, CDP #### [facility] CenterPowers Device Technologies LLC. [address] [place] [address] 52582 [employer]: Agustin Logan MD Albumin/Glob Ratio 1.3 Normal 1.0-2.5 [facility] Comment on above: Performed By: #### B MG JOSE, CDP #### [employer] [address] [place] [address] 26772 [employer]: Agustin Logan MD Alkaline Phos 59 U/L Normal 35-104 [facility] Comment on above: Performed By: #### B MG JOSE, CDP #### [employer] [address] [place] [address] [phone] [employer]: Agustin Logan MD ALT [Catalytic activity/Vol] 7 U/L Normal 5-33 [facility] Comment on above: Performed By: #### B MP, MG, CDP #### [facility] [address] [place] [address] 15783 [employer]: Agustin Logan MD Anion gap [Moles/Vol] 9 mmol/L Normal 9-17 [facility] Comment on above: Performed By: #### B MP, MG, CDP #### [facility] [address] [place] [address] 80505 [employer]: Agustin Logan MD AST [Catalytic activity/Vol] 11 U/L Normal <32 [facility] Comment on above: Performed By: #### B MP, MG, CDP #### [facility] [address] [place] [address] 67856 [employer]: Agustin Logan MD Bilirubin [Mass/Vol] 0.4 mg/dL Normal 0.3-1.2 [facility] Comment on above: Performed By: #### B MP, MG, CDP #### [facility] [address] [place] [address] [phone] [employer]: Agustin Logan MD Calcium [Mass/Vol] 8.1 mg/dL Low 8.6-10.4 [facility] Comment on above: Performed By: #### B MP, MG, CDP #### [facility] [address] [place] [address] 86083 [employer]: Agustin Logan MD Chloride [Moles/Vol] 108 mmol/L High 98-107 [facility] Comment on above: Performed By: #### B MP, MG, CDP #### [facility] [address] [place] [address] [phone] [employer]: Agustin Logan MD CO2 [Moles/Vol] 20 mmol/L Normal 20-31 [facility] Comment on above: Performed By: #### B MP, MG, CDP #### [facility] [address] [place] [address] 80850 [employer]: Agustin Logan MD Creatinine [Mass/Vol] 0.44 mg/dL Low 0.50-0.90 [facility] Comment on above: Performed By: #### B MP, MG, CDP #### [employer] [address] [place] [address] 77993 [employer]: Agustin Logan MD GFR/1.73 sq M.predicted among non-blacks MDRD (S/P/Bld) [Vol rate/Area] mL/min/{1.73_m2} Normal >60 [facility] Comment on above: Result Comment: These results are not intended for use in patients <18 years of age. eGFR results are calculated without a race factor using the 2020 CKD-EPI equation. Careful clinical correlation is recommended, particularly when comparing to results calculated using previous equations. The CKD-EPI equation is less accurate in patients with extremes of muscle mass, extra-renal metabolism of creatine, excessive creatine ingestion, or following therapy that affects renal tubular secretion. Performed By: #### B MP, MG, CDP #### [employer] [address] [place] [address] [phone] [employer]: Agustin Lgoan MD Glucose [Mass/Vol] 103 mg/dL High 70-99 [facility] Comment on above: Performed By: #### B MP, MG, CDP #### [employer] [address] [place] [address] [phone] [employer]: Agustin Logan MD Potassium [Moles/Vol] 4.0 mmol/L Normal 3.7-5.3 [facility] Comment on above: Performed By: #### B MP, MG, CDP #### [employer] [address] [place] [address] [employer]: Agustin Logan MD Protein [Mass/Vol] 6.0 g/dL Low 6.4-8.3 [facility] Comment on above: Performed By: #### B MP, MG, CDP #### [employer] [address] [place], [place] [phone] [employer]: Agustin Logan MD Sodium [Moles/Vol] 137 mmol/L Normal 135-144 [facility] Comment on above: Performed By: #### B MP, MG, CDP #### [facility] [address] [place], [place] [phone] [employer]: Agustin Logan MD Urea nitrogen [Mass/Vol] 5 mg/dL Low 6-20 [facility] Comment on above: Performed By: #### B MP, MG, CDP #### [facility] [address] [place], [place] [phone] [employer]: Agustin Logan MD Comprehensive Metabolic Pane [facility] 02-15-2023 Albumin [Mass/Vol] 3.4 g/dL Low 3.5 - 5.2 g/dL [facility] Albumin/Globulin [Mass ratio] 1.3 {ratio} 1.0 - 2.5 [facility] ALP [Catalytic activity/Vol] 59 U/L 35 - 104 U/L [facility] ALT [Catalytic activity/Vol] 7 U/L 5 - 33 U/L [facility] Anion gap [Moles/Vol] 9 mmol/L 9 - 17 mmol/L [facility] AST [Catalytic activity/Vol] 11 U/L NINF - 32 U/L [facility] Bilirubin [Mass/Vol] 0.4 mg/dL 0.3 - 1.2 mg/dL [facility] Calcium [Mass/Vol] 8.1 mg/dL Low 8.6 - 10. 4 mg/dL [facility] Chloride [Moles/Vol] 108 mmol/L High 98 - 107 mmol/L [facility] CO2 [Moles/Vol] 20 mmol/L 20 - 31 mmol/L [facility] Creatinine [Mass/Vol] 0.44 mg/dL Low 0.50 - 0.90 mg/dL [facility] GFR/1.73 sq M.predicted MDRD (S/P/Bld) [Vol rate/Area] - PINF [facility] Comment on above: These results are not intended for use in patients <18 years of age. eGFR results are calculated without a race factor using the 2020 CKD-EPI equation. Careful clinical correlation is recommended, particularly when comparing to results calculated using previous equations. The CKD-EPI equation is less accurate in patients with extremes of muscle mass, extra-renal metabolism of creatine, excessive creatine ingestion, or following therapy that affects renal tubular secretion. Glucose [Mass/Vol] 103 mg/dL High 70 - 99 mg/dL [facility] Interpretation and review of laboratory results Abnormal [facility] Potassium [Moles/Vol] 4.0 mmol/L 3.7 - 5.3 mmol/L [facility] Protein [Mass/Vol] 6.0 g/dL Low 6.4 - 8.3 g/dL [facility] Sodium [Moles/Vol] 137 mmol/L 135 - 144 mmol/L [facility] Urea nitrogen [Mass/Vol] 5 mg/dL Low 6 - 20 mg/dL [facility] EKG 12 LeadOrdered By: Unkno wn Result on 02-15-2023 Atrial Rate 66 BPM [facility] P Gypsum 72 degrees [facility] P-R Interval 170 ms [facility] Q-T Interval 430 ms [facility] QRS Duration 86 ms [facility] QTc Calculation (Bazett) 450 ms [facility] R Gypsum 68 degrees [facility] T Gypsum 40 degrees [facility] Ventricular Rate 66 BPM [facility] EKG 12 Leadon 02-15-2023 Normal sinus rhythm with sinus arrhythmia Normal ECG No previous ECGs available [facility] MUSE Result, Unknown Prov ider - 02/15/2023 Normal sinus rhythm with sinus arrhythmia Normal ECG No previous ECGs available [facility] Lipaseon 02-15-2023 Lipase [Catalytic activity/Vol] 14 U/L Normal 13-60 [facility] Comment on above: Performed By: #### B MP, MG, CDP #### [facility] LLC. [address] [place] [address] [phone] [employer]: Agustin Logan MD Lipase [Catalytic activity/Vol] 14 U/L 13 - 60 U/L [facility] Magnesiumon 02-15-2023 Magnesium [Mass/Vol] 1.9 mg/dL Normal 1.6-2.6 [facility] Comment on above: Performed By: #### B MP MG, CDP #### [employer] [address] [place] [address] [phone] [employer]: Agustin Logan MD Magnesium [Mass/Vol] 1.9 mg/dL 1.6 - 2.6 mg/dL [facility] No Panel Informationon 02-15 [facility] Phosphoruson 02-15-2023 Phosphate [Mass/Vol] 3.2 mg/dL 2.6 - 4.5 mg/dL [facility] Phosphorus, Inorg.on 023 Phosphorus, Inorg. 3.2 mg/dL Normal 2.6-4.5 [facility] Comment on above: Performed By: #### B MP MG, CDP #### [employer] [address] [place] [address] [phone] [employer]: Agustin Logan MD TSHon 02-15-2023 TSH Qn 4.33 m[IU]/L [facility] Thyroid Stim. Horm.on 2022 Thyroid Stim. Horm. 4.33 uIU/mL Normal 0.30-5.00 [facility] Comment on above: Performed By: #### B MP, MG, CDP #### [employer] [address] [place] [address] [phone] [employer]: Agustin Logan MD Venous Blood Gaseson 023 Body Temp. 37.0 Normal [facility] Comment on above: Performed By: #### I OCAL, VBG #### [employer] [address] [place] [address] 43717 [employer]: Agustin Logan MD Carboxy Hgb 1.8 % Normal 0-5 [facility] Comment on above: Result Comment: Reference Range: Non-Smokers 0-2% Average Smoker 2-4% Heavy Smoker <10% Performed By: #### I OCMATTHEW VBG #### [facility] [address] [place] [address] [phone] [employer]: Agustin Logan MD FIO2 INFORMATION NOT PROVIDED Normal [facility] Comment on above: Performed By: #### I OCMATTHEW VBG #### [facility] Center[facility] LLC. [address] [place] [address] [phone] [employer]: Agustin Logan MD HCO3 (Bld) [Moles/Vol] 22.6 mmol/L Low 24-30 [facility] Comment on above: Performed By: #### I OCMATTHEW VBG #### [facility] LLC. [address] [place] [address] 76194 [employer]: Agustin Logan MD Negative Base Excess 2.2 mmol/L High 0.0-2.0 [facility] Comment on above: Performed By: #### I OCMATTHEW VBG #### [facility] LLC. [address] [place] [address] [phone] [employer]: Agustin Logan MD Oxygen saturation in Blood 89.2 % High 60.0-85.0 [facility] Comment on above: Performed By: #### I OCMATTHEW, VBG #### [employer] [address] [place] [address] [phone] [employer]: Agustin Logan MD pCO2 41.3 mm Hg Normal 39-55 [facility] Comment on above: Performed By: #### I OCAL, VBG #### [employer] [address] [place] [address] [phone] [employer]: Agustin Logan MD pH (Bld) 7.357 [pH] Normal 7.320-7.42 0 [facility] Comment on above: Performed By: #### I ABHISHEK HONEYCUTT #### [address] [address] [employer]: Agustin Logan MD pO2 56.9 mm Hg High 30-50 [facility] Comment on above: Performed By: #### I ABHISHEK HONEYCUTT #### [facility] [address] [place] [address] 44375 [employer]: Agustin Logan MD Basic Metab w/rfx MGon 02-14 Potassium [Moles/Vol] 3.4 mmol/L Low 3.7-5.3 [facility] Comment on above: Performed By: #### B JOSE MG, CDP #### [address] [address] [employer]: Agustin Logan MD Anion gap [Moles/Vol] 16 mmol/L Normal 9-17 [facility] Comment on above: Performed By: #### B JOSE MG, CDP #### [facility] [address] [place] [address] 39430 [employer]: Agustin Logan MD Calcium [Mass/Vol] 7.7 mg/dL Low 8.6-10.4 [facility] Comment on above: Performed By: #### B MP MG, CDP #### [facility] [address] [place] [address] 13356 [employer]: Agustin Logan MD Chloride [Moles/Vol] 103 mmol/L Normal 98-107 [facility] Comment on above: Performed By: #### B MP MG, CDP #### [facility] [address] [place] [address] [phone] [employer]: Agustin Logan MD CO2 [Moles/Vol] 15 mmol/L Low 20-31 [facility] Comment on above: Performed By: #### B MP MG, CDP #### [facility] [address] [place] [address] [phone] [employer]: Agustin Logan MD Creatinine [Mass/Vol] 0.36 mg/dL Low 0.50-0.90 [facility] Comment on above: Performed By: #### B MP MG, CDP #### [facility] [address] [place] [address] [phone] [employer]: Agustin Logan MD GFR/1.73 sq M.predicted among non-blacks MDRD (S/P/Bld) [Vol rate/Area] mL/min/{1.73_m2} Normal >60 [facility] Comment on above: Result Comment: These results are not intended for use in patients <18 years of age. eGFR results are calculated without a race factor using the 2020 CKD-EPI equation. Careful clinical correlation is recommended, particularly when comparing to results calculated using previous equations. The CKD-EPI equation is less accurate in patients with extremes of muscle mass, extra-renal metabolism of creatine, excessive creatine ingestion, or following therapy that affects renal tubular secretion. Performed By: #### B JOSE MG, CDP #### [facility] [address] [place] [address] [phone] [employer]: Agustin Logan MD Glucose [Mass/Vol] 105 mg/dL High 70-99 [facility] Comment on above: Performed By: #### B JOSE MG, CDP #### [facility] [address] [place] [address] 71031 [employer]: Agustin Logan MD Sodium [Moles/Vol] 134 mmol/L Low 135-144 [facility] Comment on above: Performed By: #### B MP MG, CDP #### [facility] Center[facility] LLC. [address] [place] [address] [phone] [employer]: Agustin Logan MD Urea nitrogen [Mass/Vol] 6 mg/dL Normal 6-20 [facility] Comment on above: Performed By: #### B MP, MG, CDP #### [facility] [place] [address] [employer]: Agustin Logan MD Basic Metabolic Panel w/ Ref desean to MGon 02-14-2023 Anion gap [Moles/Vol] 16 mmol/L 9 - 17 mmol/L [facility] [employer] Calcium [Mass/Vol] 7.7 mg/dL Low 8.6 - 10. 4 mg/dL [facility] [employer] Chloride [Moles/Vol] 103 mmol/L 98 - 107 mmol/L [facility] [employer] CO2 [Moles/Vol] 15 mmol/L Low 20 - 31 mmol/L [facility]ENTEROzura WorldSELECT [facility] Creatinine [Mass/Vol] 0.36 mg/dL Low 0.50 - 0.90 mg/dL [facility] CENTERSagge GFR/1.73 sq M.predicted MDRD (S/P/Bld) [Vol rate/Area] - PINF [facility] Comment on above: These results are not intended for use in patients <18 years of age. eGFR results are calculated without a race factor using the 2020 CKD-EPI equation. Careful clinical correlation is recommended, particularly when comparing to results calculated using previous equations. The CKD-EPI equation is less accurate in patients with extremes of muscle mass, extra-renal metabolism of creatine, excessive creatine ingestion, or following therapy that affects renal tubular secretion. Glucose [Mass/Vol] 105 mg/dL High 70 - 99 mg/dL [facility]ERS[facility] Interpretation and review of laboratory results Abnormal [facility] [employer] Potassium [Moles/Vol] 3.4 mmol/L Low 3.7 - 5.3 mmol/L [facility]ENTEROzura WorldSELECT [facility] Sodium [Moles/Vol] 134 mmol/L Low 135 - 144 mmol/L [facility] CENTERCapture Media [facility] Urea nitrogen [Mass/Vol] 6 mg/dL 6 - 20 mg/dL [facility] RAD TechnologiesNORTH CAROLINA SPECIALTY HOSPITALOzura WorldSELECT MEDICAL [facility] CBC with Auto Differentialon 02-14-2023 Basophils (Bld) [#/Vol] 0.03 10*3/uL [facility] CENTERRepunch [facility] Basophils/100 WBC (Bld) 0 % 0 - 2 % [facility]ENTEROzura World [employer] Eosinophils (Bld) [#/Vol] [facility] Eosinophils/100 WBC (Bld) 0 % Low 1 - 4 % [facility] Erythrocyte distribution width (RBC) [Ratio] 13.6 % 11.8 - 14.4 % [facility] Hematocrit (Bld) [Volume fraction] 38.6 % 36.3 - 47.1 % [facility] Hemoglobin (Bld) [Mass/Vol] 11.9 g/dL 11.9 - 15.1 g/dL [facility] Immature granulocytes (Bld) [#/Vol] 0.03 10*3/uL [facility] Immature granulocytes/100 WBC (Bld) 0 % 0 [facility] Interpretation and review of laboratory results Abnormal [facility] Lymphocytes/100 WBC (Bld) 8 % Low 24 - 43 % [facility] Lymphocytes/100 WBC (Bld) 0.92 % Low [facility] MCH (RBC) [Entitic mass] 29.1 pg 25.2 - 33.5 pg [facility] MCHC (RBC) [Mass/Vol] 30.8 g/dL 28.4 - 34.8 g/dL [facility] MCV (RBC) [Entitic vol] 94.4 fL 82.6 - 102.9 fL [facility] Monocytes/100 WBC (Bld) 3 % 3 - 12 % [facility] Monocytes/100 WBC (Bld) 0.30 % [facility] Neutrophils/100 WBC (Bld) 88 % High 36 - 65 % [facility] Nucleated RBC/100 WBC (Bld) [Ratio] 0.0 % 0.0 per 100 WBC [facility] Platelet mean volume (Bld) [Entitic vol] 9.8 fL 8.1 - 13.5 fL [facility] Platelets (Bld) [#/Vol] 238 10*3/uL [facility] RBC (Bld) [#/Vol] 4.09 10*6/uL 3.95 - 5.11 m/uL [facility] Segmented neutrophils/100 WBC (Bld) 9.92 % High [facility] WBC other (Bld) [#/Vol] 11.2 [facility] CBC with Diffon 02-14-2023 Abs. Basophil 0.03 k/uL Normal 0.00-0.20 [facility] Comment on above: Performed By: #### B JOSE MG, CDP #### [facility] CenterPow[facility] Device Technologies LLC. [address] [place] [address] [phone] [employer]: Agustin Logan MD Abs. Eosinophil <0.03 Normal 0.00-0.44 [facility] Comment on above: Performed By: #### B JOSE MG, CDP #### [facility] Center[facility] LLC. [address] [place] [address] [phone] [employer]: Agustin Logan MD Abs.Imm.Granulocyte 0.03 k/uL Normal 0.00-0.30 [facility] Comment on above: Performed By: #### B JOSE MG, CDP #### [facility] [address] [place] [address] [phone] [employer]: Agustin Logan MD Abs.Neutrophil (Seg) 9.92 k/uL High 1.50-8.10 [facility] Comment on above: Performed By: #### B JOSE MG, CDP #### [facility] Center[facility] LLC. [address] [place] [address] [phone] [employer]: Agustin Logan MD Basophils/100 WBC (Bld) 0 % Normal 0-2 [facility] Comment on above: Performed By: #### B JOSE MG, CDP #### [facility] Center[facility] LLC. [address] [place] [phone] [employer]: Agustin Logan MD Eosinophils/100 WBC (Bld) 0 % Low 1-4 [facility] Comment on above: Performed By: #### B JOSE MG, CDP #### [facility] [address] [place] [phone] [employer] [employer]: Agustin Logan MD Erythrocyte distribution width (RBC) [Ratio] 13.6 % Normal 11.8-14.4 [facility] Comment on above: Performed By: #### B MP, MG, CDP #### [facility] [address] [place] [id number] [employer]: Agustin Logan MD Hematocrit (Bld) [Volume fraction] 38.6 % Normal 36.3-47.1 [facility] Comment on above: Performed By: #### B MP, MG, CDP #### [facility] [address] [place] [phone] [employer]: Agustin Logan MD Hemoglobin (Bld) [Mass/Vol] 11.9 g/dL Normal 11.9-15.1 [facility] Comment on above: Performed By: #### B MP, MG, CDP #### [facility] [address] [place] [phone] [employer]: Agustin Logan MD Immature granulocytes/100 WBC (Bld) 0 % Normal 0 [facility] Comment on above: Performed By: #### B MP, MG, CDP #### [address] [address] [employer]: Agustin Logan MD Lymphocytes (Bld) [#/Vol] 0.92 10*3/uL Low 1.10-3.70 [facility] Comment on above: Performed By: #### B MP, MG, CDP #### [facility] [address] [place] [phone] [employer]: Agustin Logan MD Lymphocytes/100 WBC (Bld) 8 % Low 24-43 [facility] Comment on above: Performed By: #### B MP, MG, CDP #### [facility] [address] [place] [phone] [employer]: Agustin Logan MD MCH (RBC) [Entitic mass] 29.1 pg Normal 25.2-33.5 [facility] Comment on above: Performed By: #### B MP, MG, CDP #### [facility] [address] [place] [phone] [employer]: Agustin Logan MD MCHC (RBC) [Mass/Vol] 30.8 g/dL Normal 28.4-34.8 [facility] Comment on above: Performed By: #### B MP, MG, CDP #### [facility] [address] [place] [phone] [employer]: Agustin Logan MD MCV (RBC) [Entitic vol] 94.4 fL Normal 82.6-102.9 [facility] Comment on above: Performed By: #### B MP, MG, CDP #### [facility] [address] [place] [phone] [employer]: Agustin Logan MD Monocytes (Bld) [#/Vol] 0.30 10*3/uL Normal 0.10-1.20 [facility] Comment on above: Performed By: #### B MP, MG, CDP #### [address] [address] [employer]: Agustin Logan MD Monocytes/100 WBC (Bld) 3 % Normal 3-12 [facility] Comment on above: Performed By: #### B MP, MG, CDP #### [facility] [address] [place] [phone] [employer]: Agustin Logan MD Neutrophil (Seg) 88 % High 36-65 [facility] Comment on above: Performed By: #### B MP, MG, CDP #### [facility] [address] [place] [address] [employer]: Agustin Logan MD NRBC Automated 0.0 per 100 WBC Normal 0.0 [facility] Comment on above: Performed By: #### B MP, MG, CDP #### [facility] [address] [place] [phone] [employer]: Agustin Logan MD Platelet mean volume (Bld) [Entitic vol] 9.8 fL Normal 8.1-13.5 [facility] Comment on above: Performed By: #### B MP, MG, CDP #### [facility] [address] [place] [phone] [employer]: Agustin Logan MD Platelets (Bld) [#/Vol] 238 10*3/uL Normal 138-453 [facility] Comment on above: Performed By: #### B MP, MG, CDP #### [facility] [address] [place] [phone] [employer]: Agustin Logan MD RBC (Bld) [#/Vol] 4.09 10*6/uL Normal 3.95-5.11 [facility] Comment on above: Performed By: #### B MP, MG, CDP #### [facility] [address] [place] [phone] [employer]: Agustin Logan MD WBC (Bld) [#/Vol] 11.2 10*3/uL Normal 3.5-11.3 [facility] Comment on above: Performed By: #### B MP, MG, CDP #### [address] [address] [employer]: Agustin Logan MD CT CERVICAL SPINE WO CONTRAS Ton 02-14-2023 CT CERVICAL SPINE WO CONTRAST EXAMINATION: CT OF THE CERVICAL SPINE WITHOUT CONTRAST 02/14/2023 12:54 am TECHNIQUE: CT of the cervical spine was performed without the administration of intravenous contrast. Multiplanar reformatted images are provided for review. Automated exposure control, iterative reconstruction, and/or weight based adjustment of the mA/kV was utilized to reduce the radiation dose to as low as reasonably achievable. COMPARISON: None. HISTORY: ORDERING SYSTEM PROVIDED HISTORY: fall TECHNOLOGIST PROVIDED HISTORY: fall Decision Support Exception - unselect if not a suspected or confirmed emergency medical condition->Emergency Medical Condition (MA) FINDINGS: BONES/ALIGNMENT: No acute fracture deformity, collapse, or subluxation at the cervical spine. Straightening may relate to pain, muscle spasm, and positioning with the collar. Pedicles and facet joints are intact. The craniocervical alignment is maintained.. DEGENERATIVE CHANGES: The disc spaces are preserved. There is no significant spinal canal stenosis but does have some small central disc protrusions. SOFT TISSUES: There is no prevertebral soft tissue swelling. IMPRESSION: No acute fracture deformity, collapse, or subluxation at the cervical spine. Interpreted by: Gerald Martinez MD Signed by: Gerald Martinez MD 02/14/23 Final result Normal [facility] No acute fracture de formity, collapse, or subluxation at the cervical spine. [facility] EXAMINATION: CT OF THE CERVICAL SPINE WITHOUT CONTRAST 02/14/2023 12:54 am TECHNIQUE: CT of the cervical spine was performed without the administration of intravenous contrast. Multiplanar reformatted images are provided for review. Automated exposure control, iterative reconstruction, and/or weight based adjustment of the mA/kV was utilized to reduce the radiation dose to as low as reasonably achievable. COMPARISON: None. HISTORY: ORDERING SYSTEM PROVIDED HISTORY: fall TECHNOLOGIST PROVIDED HISTORY: fall Decision Support Exception - unselect if not a suspected or confirmed emergency medical condition->Emergency Medical Condition (MA) FINDINGS: BONES/ALIGNMENT: No acute fracture deformity, collapse, or subluxation at the cervical spine. Straightening may relate to pain, muscle spasm, and positioning with the collar. Pedicles and facet joints are intact. The craniocervical alignment is maintained.. DEGENERATIVE CHANGES: The disc spaces are preserved. There is no significant spinal canal stenosis but does have some small central disc protrusions. SOFT TISSUES: There is no prevertebral soft tissue swelling. [facility] Gerald Martinez MD - 02/14/2023 EXAMINATION: CT OF THE CERVICAL SPINE WITHOUT CONTRAST 02/14/2023 12:54 am TECHNIQUE: CT of the cervical spine was performed without the administration of intravenous contrast. Multiplanar reformatted images are provided for review. Automated exposure control, iterative reconstruction, and/or weight based adjustment of the mA/kV was utilized to reduce the radiation dose to as low as reasonably achievable. COMPARISON: None. HISTORY: ORDERING SYSTEM PROVIDED HISTORY: fall TECHNOLOGIST PROVIDED HISTORY: fall Decision Support Exception - unselect if not a suspected or confirmed emergency medical condition->Emergency Medical Condition (MA) FINDINGS: BONES/ALIGNMENT: No acute fracture deformity, collapse, or subluxation at the cervical spine. Straightening may relate to pain, muscle spasm, and positioning with the collar. Pedicles and facet joints are intact. The craniocervical alignment is maintained.. DEGENERATIVE CHANGES: The disc spaces are preserved. There is no significant spinal canal stenosis but does have some small central disc protrusions. SOFT TISSUES: There is no prevertebral soft tissue swelling. IMPRESSION: No acute fracture deformity, collapse, or subluxation at the cervical spine. [facility] CT CHEST ABDOMEN PELVIS W CO NTRASTon 02-14-2023 CT CHEST ABDOMEN PELVIS W CONTRAST EXAMINATION: CT OF THE CHEST, ABDOMEN, AND PELVIS WITH CONTRAST 02/14/2023 12:54 am TECHNIQUE: CT of the chest, abdomen and pelvis was performed with the administration of intravenous contrast. Multiplanar reformatted images are provided for review. Automated exposure control, iterative reconstruction, and/or weight based adjustment of the mA/kV was utilized to reduce the radiation dose to as low as reasonably achievable. COMPARISON: None HISTORY: ORDERING SYSTEM PROVIDED HISTORY: fall TECHNOLOGIST PROVIDED HISTORY: fall Decision Support Exception - unselect if not a suspected or confirmed emergency medical condition->Emergency Medical Condition (MA) FINDINGS: Chest: Mediastinum: No evidence of mediastinal, hilar or axillary lymphadenopathy. Aorta is normal in caliber without acute abnormality. The central airways are clear. Lungs/pleura: No acute traumatic injury to the lungs. No evidence of pulmonary contusion or laceration. No evidence of effusion or pneumothorax. Soft Tissues/Bones: No acute bone or soft tissue abnormality evident. Abdomen/Pelvis: Organs: The liver, gallbladder, pancreas, spleen, adrenal glands, kidneys and visualized ureters are unremarkable. GI/Bowel: Stomach and duodenal sweep demonstrate no acute abnormality. There is no evidence of bowel obstruction. No evidence of abnormal bowel wall thickening or distension. The appendix is visualized and is unremarkable. No evidence of acute appendicitis. Pelvis: The bladder and reproductive organs are unremarkable. Peritoneum/Retroperitoneum: No evidence of ascites or free air. No evidence of lymphadenopathy. Aorta is normal in caliber. Bones/Soft Tissues: No acute bone or soft tissue abnormality evident. IMPRESSION: Unremarkable postcontrast CT of the chest/abdomen/pelvis. Interpreted by: Terence Hollingsworth MD Signed by: Terence Hollingsworth MD 02/14/23 Final result Normal [facility] CT CHEST ABDOMEN PELVIS W CO NTRAST Additional Contrast? Noneon 02-14-[address] of the chest/abdomen/pelvis. [facility] EXAMINATION: CT OF THE CHEST, ABDOMEN, AND PELVIS WITH CONTRAST 02/14/2023 12:54 am TECHNIQUE: CT of the chest, abdomen and pelvis was performed with the administration of intravenous contrast. Multiplanar reformatted images are provided for review. Automated exposure control, iterative reconstruction, and/or weight based adjustment of the mA/kV was utilized to reduce the radiation dose to as low as reasonably achievable. COMPARISON: None HISTORY: ORDERING SYSTEM PROVIDED HISTORY: fall TECHNOLOGIST PROVIDED HISTORY: fall Decision Support Exception - unselect if not a suspected or confirmed emergency medical condition->Emergency Medical Condition (MA) FINDINGS: Chest: Mediastinum: No evidence of mediastinal, hilar or axillary lymphadenopathy. Aorta is normal in caliber without acute abnormality. The central airways are clear. Lungs/pleura: No acute traumatic injury to the lungs. No evidence of pulmonary contusion or laceration. No evidence of effusion or pneumothorax. Soft Tissues/Bones: No acute bone or soft tissue abnormality evident. Abdomen/Pelvis: Organs: The liver, gallbladder, pancreas, spleen, adrenal glands, kidneys and visualized ureters are unremarkable. GI/Bowel: Stomach and duodenal sweep demonstrate no acute abnormality. There is no evidence of bowel obstruction. No evidence of abnormal bowel wall thickening or distension. The appendix is visualized and is unremarkable. No evidence of acute appendicitis. Pelvis: The bladder and reproductive organs are unremarkable. Peritoneum/Retroperitoneum: No evidence of ascites or free air. No evidence of lymphadenopathy. Aorta is normal in caliber. Bones/Soft Tissues: No acute bone or soft tissue abnormality evident. [facility] Terence Hollingsworth MD - 02/14/2023 EXAMINATION: CT OF THE CHEST, ABDOMEN, AND PELVIS WITH CONTRAST 02/14/2023 12:54 am TECHNIQUE: CT of the chest, abdomen and pelvis was performed with the administration of intravenous contrast. Multiplanar reformatted images are provided for review. Automated exposure control, iterative reconstruction, and/or weight based adjustment of the mA/kV was utilized to reduce the radiation dose to as low as reasonably achievable. COMPARISON: None HISTORY: ORDERING SYSTEM PROVIDED HISTORY: fall TECHNOLOGIST PROVIDED HISTORY: fall Decision Support Exception - unselect if not a suspected or confirmed emergency medical condition->Emergency Medical Condition (MA) FINDINGS: Chest: Mediastinum: No evidence of mediastinal, hilar or axillary lymphadenopathy. Aorta is normal in caliber without acute abnormality. The central airways are clear. Lungs/pleura: No acute traumatic injury to the lungs. No evidence of pulmonary contusion or laceration. No evidence of effusion or pneumothorax. Soft Tissues/Bones: No acute bone or soft tissue abnormality evident. Abdomen/Pelvis: Organs: The liver, gallbladder, pancreas, spleen, adrenal glands, kidneys and visualized ureters are unremarkable. GI/Bowel: Stomach and duodenal sweep demonstrate no acute abnormality. There is no evidence of bowel obstruction. No evidence of abnormal bowel wall thickening or distension. The appendix is visualized and is unremarkable. No evidence of acute appendicitis. Pelvis: The bladder and reproductive organs are unremarkable. Peritoneum/Retroperitoneum: No evidence of ascites or free air. No evidence of lymphadenopathy. Aorta is normal in caliber. Bones/Soft Tissues: No acute bone or soft tissue abnormality evident. IMPRESSION: Unremarkable postcontrast CT of the chest/abdomen/pelvis. [facility] CT CHEST ABDOMEN PELVIS W CO NTRAST Additional Contrast? NoneOrdered By: Terence Hollingsworth on 02-14-2023 [facility] Work Phone: CT HEAD WO CONTRASTon 2022 Left-sided subdural hemorrhage that is similar in size compared to prior exam. Small hemorrhagic contusion in the left temporal lobe anteriorly. Stable nondisplaced right-sided skull fracture. [facility] EXAMINATION: CT OF THE HEAD WITHOUT CONTRAST 02/14/2023 8:22 am TECHNIQUE: CT of the head was performed without the administration of intravenous contrast. Automated exposure control, iterative reconstruction, and/or weight based adjustment of the mA/kV was utilized to reduce the radiation dose to as low as reasonably achievable. COMPARISON: CT head performed 02/14/2023. HISTORY: ORDERING SYSTEM PROVIDED HISTORY: sdh, skull fracture TECHNOLOGIST PROVIDED HISTORY: sdh, skull fracture Reason for Exam: sdh,skull fx FINDINGS: BRAIN/VENTRICLES: There is redemonstration of a subdural hemorrhage adjacent to the left cerebral hemisphere that is similar in size compared to prior examination. There is a small hemorrhagic contusion in the left temporal lobe anteriorly. There is no mass effect or midline shift. The ventricles are unremarkable. The infratentorial structures are unremarkable. ORBITS: The visualized portion of the orbits demonstrate no acute abnormality. SINUSES: The visualized paranasal sinuses and mastoid air cells demonstrate no acute abnormality. SOFT TISSUES/SKULL: There is redemonstration of a right-sided skull fracture without displacement. [facility] Neva Du MD - 02/14/2023 EXAMINATION: CT OF THE HEAD WITHOUT CONTRAST 02/14/2023 8:22 am TECHNIQUE: CT of the head was performed without the administration of intravenous contrast. Automated exposure control, iterative reconstruction, and/or weight based adjustment of the mA/kV was utilized to reduce the radiation dose to as low as reasonably achievable. COMPARISON: CT head performed 02/14/2023. HISTORY: ORDERING SYSTEM PROVIDED HISTORY: sdh, skull fracture TECHNOLOGIST PROVIDED HISTORY: sdh, skull fracture Reason for Exam: sdh,skull fx FINDINGS: BRAIN/VENTRICLES: There is redemonstration of a subdural hemorrhage adjacent to the left cerebral hemisphere that is similar in size compared to prior examination. There is a small hemorrhagic contusion in the left temporal lobe anteriorly. There is no mass effect or midline shift. The ventricles are unremarkable. The infratentorial structures are unremarkable. ORBITS: The visualized portion of the orbits demonstrate no acute abnormality. SINUSES: The visualized paranasal sinuses and mastoid air cells demonstrate no acute abnormality. SOFT TISSUES/SKULL: There is redemonstration of a right-sided skull fracture without displacement. IMPRESSION: Left-sided subdural hemorrhage that is similar in size compared to prior exam. Small hemorrhagic contusion in the left temporal lobe anteriorly. Stable nondisplaced right-sided skull fracture. [facility] Radiology Study observation (narrative) [facility] There is an acute romero bdural hematoma at along the left frontal parietal margin coursing down to the middle cranial fossa with a maximum thickness of 4-5 mm. Does not cause a significant compression of the brain or midline shift. There is a nondisplaced nondepressed fracture running vertically down the inferior right parietal skull into the anterior right temporal skull and anterior edge of the middle cranial fossa. Appears to spare the sphenoid sinus etienne. Spares the right mastoid air cells as well. Surprisingly no subdural or epidural hematoma underlying the right skull fracture. Critical results were called by Dr. Gerald Martinez MD to Dr. Donahue on 02/14/2023 at 01:44. [facility] EXAMINATION: CT OF THE HEAD WITHOUT CONTRAST 02/14/2023 12:54 am TECHNIQUE: CT of the head was performed without the administration of intravenous contrast. Automated exposure control, iterative reconstruction, and/or weight based adjustment of the mA/kV was utilized to reduce the radiation dose to as low as reasonably achievable. COMPARISON: None. HISTORY: ORDERING SYSTEM PROVIDED HISTORY: fall TECHNOLOGIST PROVIDED HISTORY: fall Decision Support Exception - unselect if not a suspected or confirmed emergency medical condition->Emergency Medical Condition (MA) FINDINGS: BRAIN/VENTRICLES: There is high density subdural hematoma along the left frontal parietal margin coursing down to the middle cranial fossa and lateral aspect of the temporal lobe. Maximum thickness of 4-5 mm. No focal intraparenchymal hematoma or definite subarachnoid hemorrhage. There is some artifact along the periphery of the brain along the parietal and occipital margins. The falx and tentorium are not abnormally thickened or dense. There is no midline shift or brain herniation. The ventricles are not dilated. No sign of an acute territorial infarct. The basal cisterns are clear. ORBITS: The visualized portion of the orbits demonstrate no acute abnormality. SINUSES: Mucosal thickening in the ethmoid air cells and sphenoid sinuses but without high-density hemorrhage.. SOFT TISSUES/SKULL: There is an acute nondisplaced fracture running vertically down the inferior right parietal skull into the squamous portion of the right temporal skull into the anterior aspect of the middle cranial fossa. Does not appear to involve the etienne of the sphenoid sinuses. Does not involve the right mastoid air cells. Contusion hematoma at the right side of the scalp. No radiopaque foreign body. [facility] Gerald Martinez MD - 02/14/2023 EXAMINATION: CT OF THE HEAD WITHOUT CONTRAST 02/14/2023 12:54 am TECHNIQUE: CT of the head was performed without the administration of intravenous contrast. Automated exposure control, iterative reconstruction, and/or weight based adjustment of the mA/kV was utilized to reduce the radiation dose to as low as reasonably achievable. COMPARISON: None. HISTORY: ORDERING SYSTEM PROVIDED HISTORY: fall TECHNOLOGIST PROVIDED HISTORY: fall Decision Support Exception - unselect if not a suspected or confirmed emergency medical condition->Emergency Medical Condition (MA) FINDINGS: BRAIN/VENTRICLES: There is high density subdural hematoma along the left frontal parietal margin coursing down to the middle cranial fossa and lateral aspect of the temporal lobe. Maximum thickness of 4-5 mm. No focal intraparenchymal hematoma or definite subarachnoid hemorrhage. There is some artifact along the periphery of the brain along the parietal and occipital margins. The falx and tentorium are not abnormally thickened or dense. There is no midline shift or brain herniation. The ventricles are not dilated. No sign of an acute territorial infarct. The basal cisterns are clear. ORBITS: The visualized portion of the orbits demonstrate no acute abnormality. SINUSES: Mucosal thickening in the ethmoid air cells and sphenoid sinuses but without high-density hemorrhage.. SOFT TISSUES/SKULL: There is an acute nondisplaced fracture running vertically down the inferior right parietal skull into the squamous portion of the right temporal skull into the anterior aspect of the middle cranial fossa. Does not appear to involve the etienne of the sphenoid sinuses. Does not involve the right mastoid air cells. Contusion hematoma at the right side of the scalp. No radiopaque foreign body. IMPRESSION: There is an acute subdural hematoma at along the left frontal parietal margin coursing down to the middle cranial fossa with a maximum thickness of 4-5 mm. Does not cause a significant compression of the brain or midline shift. There is a nondisplaced nondepressed fracture running vertically down the inferior right parietal skull into the anterior right temporal skull and anterior edge of the middle cranial fossa. Appears to spare the sphenoid sinus etienne. Spares the right mastoid air cells as well. Surprisingly no subdural or epidural hematoma underlying the right skull fracture. Critical results were called by Dr. Gerald Martinez MD to Dr. Donahue on 02/14/2023 at 01:44. [facility] CT HEAD WO CONTRASTOrdered B y: Neva Nicole on 02-14-2023 [facility] Work Phone: CT HEAD WO CONTRASTOrdered B y: Gerald Martinez on 02-14-2023 [facility] [employer] Work Phone: CT LUMBAR SPINE TRAUMA RECON STRUCTIONon 02-14-2023 CT LUMBAR SPINE TRAUMA RECONSTRUCTION EXAMINATION: CT OF THE THORACIC SPINE WITHOUT CONTRAST; CT OF THE LUMBAR SPINE WITHOUT CONTRAST 02/14/2023 12:54 am: TECHNIQUE: CT of the thoracic spine was performed without the administration of intravenous contrast. Multiplanar reformatted images are provided for review. Automated exposure control, iterative reconstruction, and/or weight based adjustment of the mA/kV was utilized to reduce the radiation dose to as low as reasonably achievable.; CT of the lumbar spine was performed without the administration of intravenous contrast. Multiplanar reformatted images are provided for review. Adjustment of mA and/or kV according to patient size was utilized. Automated exposure control, iterative reconstruction, and/or weight based adjustment of the mA/kV was utilized to reduce the radiation dose to as low as reasonably achievable. COMPARISON: None. HISTORY: ORDERING SYSTEM PROVIDED HISTORY: fall TECHNOLOGIST PROVIDED HISTORY: fall FINDINGS: BONES/ALIGNMENT: No acute fracture deformity, collapse, or subluxation at the thoracic spine. The pedicles and facet joints are intact. Vertebral body heights are maintained. No acute fracture deformity, collapse, or subluxation at the lumbar spine. Pedicles and facet joints are intact. The transverse processes are also intact. DEGENERATIVE CHANGES: The disc spaces are preserved with only minimal endplate changes and tiny anterior osteophytes in the thoracic and lumbar spine. There is no significant spinal canal stenosis. SOFT TISSUES: No posterior paraspinal mass/fluid collection. For the internal chest, abdomen, pelvis see the separate CT. IMPRESSION: No acute fracture deformity, collapse, or subluxation at the thoracic and lumbar spine. Interpreted by: Gerald Martinez MD Signed by: Gerald Mratinez MD 02/14/23 Final result Normal [facility] CT THORACIC SPINE TRAUMA REC ONSTRUCTIONon 02-14-2023 CT THORACIC SPINE TRAUMA RECONSTRUCTION EXAMINATION: CT OF THE THORACIC SPINE WITHOUT CONTRAST; CT OF THE LUMBAR SPINE WITHOUT CONTRAST 02/14/2023 12:54 am: TECHNIQUE: CT of the thoracic spine was performed without the administration of intravenous contrast. Multiplanar reformatted images are provided for review. Automated exposure control, iterative reconstruction, and/or weight based adjustment of the mA/kV was utilized to reduce the radiation dose to as low as reasonably achievable.; CT of the lumbar spine was performed without the administration of intravenous contrast. Multiplanar reformatted images are provided for review. Adjustment of mA and/or kV according to patient size was utilized. Automated exposure control, iterative reconstruction, and/or weight based adjustment of the mA/kV was utilized to reduce the radiation dose to as low as reasonably achievable. COMPARISON: None. HISTORY: ORDERING SYSTEM PROVIDED HISTORY: fall TECHNOLOGIST PROVIDED HISTORY: fall FINDINGS: BONES/ALIGNMENT: No acute fracture deformity, collapse, or subluxation at the thoracic spine. The pedicles and facet joints are intact. Vertebral body heights are maintained. No acute fracture deformity, collapse, or subluxation at the lumbar spine. Pedicles and facet joints are intact. The transverse processes are also intact. DEGENERATIVE CHANGES: The disc spaces are preserved with only minimal endplate changes and tiny anterior osteophytes in the thoracic and lumbar spine. There is no significant spinal canal stenosis. SOFT TISSUES: No posterior paraspinal mass/fluid collection. For the internal chest, abdomen, pelvis see the separate CT. IMPRESSION: No acute fracture deformity, collapse, or subluxation at the thoracic and lumbar spine. Interpreted by: Gerald Martinez MD Signed by: Gerald Martinez MD 02/14/23 Final result Normal [facility] Calcium, Ionicon 02-14-2023 Calcium [Moles/Vol] 0.94 mmol/L Low 1.13-1.33 [facility] Comment on above: Performed By: #### B MP, MG, CDP #### [employer] [address] [place] [phone] [employer]: Agustin Logan MD Calcium, Ionizedon 3 Calcium.ionized (Bld) [Moles/Vol] 0.94 mmol/L Low 1.13 - 1.33 mmol/L [facility] Drug Scr, Abuse, Uron 2022 Amphetamine(s),Ur Positive Abnormal NEG [facility] Comment on above: Result Comment: (Positive cutoff 1000 ng/mL) Performed By: #### B MPX #### [employer] [address] [place] [phone] [employer]: Agustin Logan MD Barbiturate(s),Ur Negative Normal NEG [facility] Comment on above: Result Comment: (Positive cutoff 200 ng/mL) Performed By: #### B MPX #### [facility] [address] [place] [phone] [employer]: Agustin Logan MD Benzodiazepine(s) Negative Normal NEG [facility] Comment on above: Result Comment: (Positive cutoff 200 ng/mL) Performed By: #### B MPX #### [facility] [address] [place] [phone] [employer]: Agustin Logan MD Cannabinoid(s),Ur Negative Normal NEG [facility] Comment on above: Result Comment: (Positive cutoff 50 ng/mL) Performed By: #### B MPX #### [facility] [address] [place] [phone] [employer]: Agustin Logan MD Cocaine Metabolite Negative Normal NEG [facility] Comment on above: Result Comment: (Positive cutoff 300 ng/mL) Performed By: #### B MPX #### [facility] [address] [place] [phone] [employer]: Agustin Logan MD Fentanyl, Urine Negative Normal NEG [facility] Comment on above: Result Comment: (Positive cutoff 5 ng/ml) Performed By: #### B MPX #### [facility] [address] [place] [phone] [employer]: Agustin Logan MD Interpretive Info Assay provides medic al screening only. The absence of expected drug(s) and/or Normal [facility] Comment on above: Result Comment: meta bolite(s) may indicate diluted or adulterated urine, limitations of testing or timing of collection. Testing for legal purposes should be confirmed by another method. To request confirmation of test result, please call the lab within 7 days of sample submission. Performed By: #### B MPX #### [facility] [address] [place] [phone] [employer]: Agustin Logan MD Methadone Ql (U) Negative Normal NEG [facility] Comment on above: Result Comment: (Positive cutoff 300 ng/mL) Performed By: #### B MPX #### [facility] [address] [place] [phone] [employer]: Agustin Logan MD Opiate(s), Ur Negative Normal NEG [facility] Comment on above: Result Comment: (Positive cutoff 300 ng/mL) Performed By: #### B MPX #### [facility] [address] [place] [phone] [employer]: Agustin Logan MD Oxycodone, Urine Negative Normal NEG [facility] Comment on above: Result Comment: (Positive cutoff 100 ng/mL) Performed By: #### B MPX #### [facility] [address] [place] [phone] [employer]: Agustin Logan MD Phencyclidine, Ur Negative Normal NEG [facility] Comment on above: Result Comment: (Positive cutoff 25 ng/mL) Performed By: #### B MPX #### [address] [phone] [employer]: Agustin Logan MD Drug screen multi urineon Amphetamines Ql (U) Positive Abnormal NEGATIVE [facility] Comment on above: (Positive cutoff 1000 ng/mL) Barbiturates Screen Ql (U) Negative NEGATIVE [facility] Comment on above: (Positive cutoff 200 ng/mL) Benzodiazepines Ql (U) Negative NEGATIVE [facility] Comment on above: (Positive cutoff 200 ng/mL) Cannabinoids Screen Ql (U) Negative NEGATIVE [facility] Comment on above: (Positive cutoff 50 ng/mL) Cocaine Ql (U) Negative NEGATIVE [facility] Comment on above: (Positive cutoff 300 ng/mL) fentaNYL Ql (U) Negative NEGATIVE [facility] Comment on above: (Positive cutoff 5 ng/ml) Interpretation and review of laboratory results Abnormal [facility] Methadone Ql (U) Negative NEGATIVE [facility] Comment on above: (Positive cutoff 300 ng/mL) Opiates Screen Ql (U) Negative NEGATIVE [facility] Comment on above: (Positive cutoff 300 ng/mL) oxyCODONE Ql (U) Negative NEGATIVE [facility] Comment on above: (Positive cutoff 100 ng/mL) Phencyclidine Ql (U) Negative NEGATIVE [facility] Comment on above: (Positive cutoff 25 ng/mL) Test Information Assay provides medic al screening only. The absence of expected drug(s) and/or metabolite(s) may indicate diluted or adulterated urine, limitations of testing or timing of collection. [facility] Comment on above: Testing for legal pu rposes should be confirmed by another method. To request confirmation of test result, please call the lab within 7 days of sample submission. [facility] Hepatic Function Panelon Albumin [Mass/Vol] 4.0 g/dL 3.5 - 5.2 g/dL [facility] Albumin/Globulin [Mass ratio] 1.4 {ratio} 1.0 - 2.5 [facility] ALP [Catalytic activity/Vol] 55 U/L 35 - 104 U/L [facility] ALT [Catalytic activity/Vol] 9 U/L 5 - 33 U/L [facility] AST [Catalytic activity/Vol] 15 U/L NINF - 32 U/L [facility] Bilirubin [Mass/Vol] 0.2 mg/dL Low 0.3 - 1.2 mg/dL [facility] Bilirubin.direct [Mass/Vol] mg/dL NINF - 0.3 mg/dL [facility] Bilirubin.indirect [Mass/Vol] Can not be calculated 0.0 - 1.0 mg/dL [facility] Interpretation and review of laboratory results Abnormal [facility] Protein [Mass/Vol] 6.9 g/dL 6.4 - 8.3 g/dL [facility] Lactic Acidon 02-14-2023 Lactic Acid,Whole Bl 1.3 mmol/L Normal 0.7-2.1 [facility] Comment on above: Performed By: #### B MPX #### [facility] [address] [place] [address] [phone] [employer]: Agustin Logan MD Lactic Acid, Whole Blood 1.3 mmol/L 0.7 - 2.1 mmol/L [facility] Lactic Acid,Whole Bl 2.6 mmol/L High 0.7-2.1 [facility] Comment on above: Performed By: #### B JOSE MG, CDP #### [facility] [address] [place] [address] [phone] [employer]: Agustin Logan MD Lactic Acid, Whole Blood 2.6 mmol/L High 0.7 - 2.1 mmol/L [facility] Liver Profileon 02-14-2023 Albumin [Mass/Vol] 4.0 g/dL Normal 3.5-5.2 [facility] Comment on above: Performed By: #### B JOSE MG, CDP #### [facility] [address] [place] [address] [phone] [employer]: Agustin Logan MD Albumin/Glob Ratio 1.4 Normal 1.0-2.5 [facility] Comment on above: Performed By: #### B JOSE MG, CDP #### [employer] [address] [place] [address] [phone] [employer]: Agustin Logan MD Alkaline Phos 55 U/L Normal 35-104 [facility] Comment on above: Performed By: #### B JOSE MG, CDP #### [employer] [address] [place] [address] [phone] [employer]: Agustin Logan MD ALT [Catalytic activity/Vol] 9 U/L Normal 5-33 [facility] Comment on above: Performed By: #### B JOSE MG, CDP #### [employer] [address] [place] [address] [employer]: Agustin Logan MD AST [Catalytic activity/Vol] 15 U/L Normal <32 [facility] Comment on above: Performed By: #### B MP, MG, CDP #### [facility] [address] [place] [phone] [employer]: Agustin Logan MD Bilirubin [Mass/Vol] 0.2 mg/dL Low 0.3-1.2 [facility] Comment on above: Performed By: #### B MP, MG, CDP #### [facility] [address] [place] [phone] [employer]: Agustin Logan MD Bilirubin, Indirect Can not be calculated Normal 0.0-1 .0 [facility] Comment on above: Performed By: #### B MP, MG, CDP #### [facility] [address] [place] [address] [phone] [employer]: Agustin Logan MD Bilirubin.indirect [Mass/Vol] mg/dL Normal <0.3 [facility] Comment on above: Performed By: #### B MP, MG, CDP #### [facility] [address] [place] [phone] [employer]: Agustin Logan MD Protein [Mass/Vol] 6.9 g/dL Normal 6.4-8.3 [facility] Comment on above: Performed By: #### B MP, MG, CDP #### [facility] [address] [place] [address] [phone] [employer]: Agustin Logan MD MRSA DNA Probe, Nasalon - MRSA, DNA, Nasal Negative NEGATIVE [facility] Comment on above: NEGATIVE: MRSA DNA n ot detected by nucleic acid amplification. Results should be used as an adjunct to nosocomial control efforts to identify patients needing enhanced precautions. The test is not intended to identify patients with staphylococcal infections. Results should not be used to guide or monitor treatment for MRSA infections. Specimen Description .NASAL SWAB [facility] MRSA, DNA, Nasalon MRSA, DNA, Nasal Negative Normal NEG [facility] Comment on above: Result Comment: NEGA TIVE: MRSA DNA not detected by nucleic acid amplification. Results should be used as an adjunct to nosocomial control efforts to identify patients needing enhanced precautions. The test is not intended to identify patients with staphylococcal infections. Results should not be used to guide or monitor treatment for MRSA infections. Performed By: #### M RSANO #### [employer] [address] [place] [phone] [employer]: Agustin Logan MD Specimen Description .NASAL SWAB Normal [facility] Comment on above: Performed By: #### M RSANO #### [facility] [address] [place] [phone] [employer]: Agustin Logan MD Magnesiumon 02-14-2023 Magnesium [Mass/Vol] 2.0 mg/dL Normal 1.6-2.6 [facility] Comment on above: Performed By: #### B MP, MG, CDP #### [facility] [address] [place] [address] [phone] [employer]: Agustin Logan MD Magnesium [Mass/Vol] 2.0 mg/dL 1.6 - 2.6 mg/dL [facility] No Panel Informationon 02-14 No acute osseous abn ormality of the right knee and left ankle. [facility] EXAMINATION: THREE XRAY VIEWS OF THE LEFT ANKLE; TWO XRAY VIEWS OF THE RIGHT KNEE 02/14/2023 12:31 pm COMPARISON: None. HISTORY: ORDERING SYSTEM PROVIDED HISTORY: L ankle pain TECHNOLOGIST PROVIDED HISTORY: L ankle pain; ORDERING SYSTEM PROVIDED HISTORY: R knee pain, decreased ROM TECHNOLOGIST PROVIDED HISTORY: R knee pain, decreased ROM FINDINGS: There is no evidence of acute fracture. There is normal alignment. No acute joint abnormality. No focal osseous lesion. No focal soft tissue abnormality. [facility] Sly Toscano MD - 02/14/2023 EXAMINATION: THREE XRAY VIEWS OF THE LEFT ANKLE; TWO XRAY VIEWS OF THE RIGHT KNEE 02/14/2023 12:31 pm COMPARISON: None. HISTORY: ORDERING SYSTEM PROVIDED HISTORY: L ankle pain TECHNOLOGIST PROVIDED HISTORY: L ankle pain; ORDERING SYSTEM PROVIDED HISTORY: R knee pain, decreased ROM TECHNOLOGIST PROVIDED HISTORY: R knee pain, decreased ROM FINDINGS: There is no evidence of acute fracture. There is normal alignment. No acute joint abnormality. No focal osseous lesion. No focal soft tissue abnormality. IMPRESSION: No acute osseous abnormality of the right knee and left ankle. [facility] No acute bony abnorm alities are noted of the right hand and right elbow [facility] EXAMINATION: TWO XRAY VIEWS OF THE RIGHT ELBOW; THREE XRAY VIEWS OF THE RIGHT HAND 02/14/2023 12:31 pm COMPARISON: None. HISTORY: ORDERING SYSTEM PROVIDED HISTORY: r elbow tenderness TECHNOLOGIST PROVIDED HISTORY: r elbow tenderness; ORDERING SYSTEM PROVIDED HISTORY: R hand pain, swelling, decreased ROM TECHNOLOGIST PROVIDED HISTORY: R hand pain, swelling, decreased ROM FINDINGS: The visualized bones are normal . There is no evidence of fracture or dislocation. . The joint spaces appear well maintained. The soft tissues are unremarkable. [facility] Sly Toscano MD - 02/14/2023 EXAMINATION: TWO XRAY VIEWS OF THE RIGHT ELBOW; THREE XRAY VIEWS OF THE RIGHT HAND 02/14/2023 12:31 pm COMPARISON: None. HISTORY: ORDERING SYSTEM PROVIDED HISTORY: r elbow tenderness TECHNOLOGIST PROVIDED HISTORY: r elbow tenderness; ORDERING SYSTEM PROVIDED HISTORY: R hand pain, swelling, decreased ROM TECHNOLOGIST PROVIDED HISTORY: R hand pain, swelling, decreased ROM FINDINGS: The visualized bones are normal . There is no evidence of fracture or dislocation. . The joint spaces appear well maintained. The soft tissues are unremarkable. IMPRESSION: No acute bony abnormalities are noted of the right hand and right elbow [facility] Radiology Study observation (narrative) [facility] Interpretation and review of laboratory results Abnormal [facility] No acute fracture de formity, collapse, or subluxation at the thoracic and lumbar spine. [facility] EXAMINATION: CT OF THE THORACIC SPINE WITHOUT CONTRAST; CT OF THE LUMBAR SPINE WITHOUT CONTRAST 02/14/2023 12:54 am: TECHNIQUE: CT of the thoracic spine was performed without the administration of intravenous contrast. Multiplanar reformatted images are provided for review. Automated exposure control, iterative reconstruction, and/or weight based adjustment of the mA/kV was utilized to reduce the radiation dose to as low as reasonably achievable.; CT of the lumbar spine was performed without the administration of intravenous contrast. Multiplanar reformatted images are provided for review. Adjustment of mA and/or kV according to patient size was utilized. Automated exposure control, iterative reconstruction, and/or weight based adjustment of the mA/kV was utilized to reduce the radiation dose to as low as reasonably achievable. COMPARISON: None. HISTORY: ORDERING SYSTEM PROVIDED HISTORY: fall TECHNOLOGIST PROVIDED HISTORY: fall FINDINGS: BONES/ALIGNMENT: No acute fracture deformity, collapse, or subluxation at the thoracic spine. The pedicles and facet joints are intact. Vertebral body heights are maintained. No acute fracture deformity, collapse, or subluxation at the lumbar spine. Pedicles and facet joints are intact. The transverse processes are also intact. DEGENERATIVE CHANGES: The disc spaces are preserved with only minimal endplate changes and tiny anterior osteophytes in the thoracic and lumbar spine. There is no significant spinal canal stenosis. SOFT TISSUES: No posterior paraspinal mass/fluid collection. For the internal chest, abdomen, pelvis see the separate CT. [facility] Gerald George MD - 02/14/2023 EXAMINATION: CT OF THE THORACIC SPINE WITHOUT CONTRAST; CT OF THE LUMBAR SPINE WITHOUT CONTRAST 02/14/2023 12:54 am: TECHNIQUE: CT of the thoracic spine was performed without the administration of intravenous contrast. Multiplanar reformatted images are provided for review. Automated exposure control, iterative reconstruction, and/or weight based adjustment of the mA/kV was utilized to reduce the radiation dose to as low as reasonably achievable.; CT of the lumbar spine was performed without the administration of intravenous contrast. Multiplanar reformatted images are provided for review. Adjustment of mA and/or kV according to patient size was utilized. Automated exposure control, iterative reconstruction, and/or weight based adjustment of the mA/kV was utilized to reduce the radiation dose to as low as reasonably achievable. COMPARISON: None. HISTORY: ORDERING SYSTEM PROVIDED HISTORY: fall TECHNOLOGIST PROVIDED HISTORY: fall FINDINGS: BONES/ALIGNMENT: No acute fracture deformity, collapse, or subluxation at the thoracic spine. The pedicles and facet joints are intact. Vertebral body heights are maintained. No acute fracture deformity, collapse, or subluxation at the lumbar spine. Pedicles and facet joints are intact. The transverse processes are also intact. DEGENERATIVE CHANGES: The disc spaces are preserved with only minimal endplate changes and tiny anterior osteophytes in the thoracic and lumbar spine. There is no significant spinal canal stenosis. SOFT TISSUES: No posterior paraspinal mass/fluid collection. For the internal chest, abdomen, pelvis see the separate CT. IMPRESSION: No acute fracture deformity, collapse, or subluxation at the thoracic and lumbar spine. [facility] Radiology Study observation (narrative) [facility] Phosphoruson 02-14-2023 Phosphate [Mass/Vol] 2.6 mg/dL 2.6 - 4.5 mg/dL [facility] Phosphorus, Inorg.on 023 Phosphorus, Inorg. 2.6 mg/dL Normal 2.6-4.5 [facility] Comment on above: Performed By: #### B MP, MG, CDP #### [employer] [address] [place] [phone] [employer]: Agustin Logan MD TYPE AND SCREENon 02-14-2023 ABO and Rh group Nom (Bld) Blood group O Rh(D) negative [facility] Arm Band Number [id number] [facility] Blood group antibodies identified Nom Negative [facility] Expiration Date 02/17/2023,5541 [facility] Trauma Panelon 02-14-2023 Anion gap [Moles/Vol] 14 mmol/L 9 - 17 mmol/L [facility] aPTT Coag (Bld) [Time] 26.4 s [facility] Comment on above: IV Heparin Therapy Range: 66.0-92.0 sec Blood Bank Specimen BILL FOR SERVICES PERFORMED [facility] Carboxyhemoglobin (Bld) [Mass fraction] 1.1 % 0 - 5 % [facility] Comment on above: Reference Range: Non-Smokers 0-2% Average Smoker 2-4% Heavy Smoker <10% Chloride [Moles/Vol] 106 mmol/L 98 - 107 mmol/L [facility] CO2 [Moles/Vol] 18 mmol/L Low 20 - 31 mmol/L [facility] Creatinine [Mass/Vol] 0.45 mg/dL Low 0.50 - 0.90 mg/dL [facility] Erythrocyte distribution width (RBC) [Ratio] 13.7 % 11.8 - 14.4 % [facility] Ethanol percent 0.205 % High NINF - 0.010 % [facility] Ethanolamine [Mass/Vol] 205 mg/dL High NINF - 10 mg/dL [facility] GFR/1.73 sq M.predicted MDRD (S/P/Bld) [Vol rate/Area] 60 mL/min/{1.73_m2} Low - PINF [facility] Comment on above: These results are not intended for use in patients <18 years of age. eGFR results are calculated without a race factor using the 2020 CKD-EPI equation. Careful clinical correlation is recommended, particularly when comparing to results calculated using previous equations. The CKD-EPI equation is less accurate in patients with extremes of muscle mass, extra-renal metabolism of creatine, excessive creatine ingestion, or following therapy that affects renal tubular secretion. Glucose [Mass/Vol] 80 mg/dL 70 - 99 mg/dL [facility] HCG ( test) Ql Negative NEGATIVE [facility] Comment on above: Specimens with hCG l evels near the threshold of the test (25 mIU/mL) may give a negative or indeterminate result. In such cases, another test should be performed with a new specimen in 48-72 hours. If early is suspected clinically in this setting, correlation with quantitative serum b-hCG level is suggested. [employer] has confirmed the use of plasma for this test. This has not been cleared or approved by the U.S. Food and Drug Administration. The FDA has determined that such clearance is not necessary. HCO3 (Bld) [Moles/Vol] 22.1 mmol/L Low 24 - 30 mmol/L [facility] Hematocrit (Bld) [Volume fraction] 34.6 % Low 36.3 - 47.1 % [facility] Hemoglobin (Bld) [Mass/Vol] 11.1 g/dL Low 11.9 - 15.1 g/dL [facility] INR Coag (PPP) [Relative time] 1.1 {INR} [facility] Comment on above: Therapeutic Range: Moderate Anticoagulant Intensity: INR = 2.0-3.0 High Anticoagulant Intensity: INR = 2.5-3.5 Interpretation and review of laboratory results Abnormal [facility] MCH (RBC) [Entitic mass] 29.6 pg 25.2 - 33.5 pg [facility] MCHC (RBC) [Mass/Vol] 32.1 g/dL 28.4 - 34.8 g/dL [facility] MCV (RBC) [Entitic vol] 92.3 fL 82.6 - 102.9 fL [facility] Negative Base Excess, Nicola 3.5 mmol/L High 0.0 - 2.0 mmol/L [facility] Nucleated RBC/100 WBC (Bld) [Ratio] 0.0 % 0.0 per 100 WBC [facility] Oxygen saturation in Blood 63.9 % 60.0 - 85.0 % [facility] Oxygen/Inspired gas Respiratory system --on ventilator Unknown [facility] pCO2, Nicola 45.0 [facility] pH, Nicola 7.313 Low 7.320 - 7.420 [facility] Platelet mean volume (Bld) [Entitic vol] 10.0 fL 8.1 - 13.5 fL [facility] Platelets (Bld) [#/Vol] 234 10*3/uL [facility] pO2, Nicola 37.9 [facility] Potassium [Moles/Vol] 2.8 mmol/L Critically low 3.7 - 5.3 mmol/L [facility] PT Coag (PPP) [Time] 13.9 s [facility] RBC (Bld) [#/Vol] 3.75 10*6/uL Low 3.95 - 5.11 m/uL [facility] Sodium [Moles/Vol] 138 mmol/L 135 - 144 mmol/L [facility] Urea nitrogen [Mass/Vol] 8 mg/dL 6 - 20 mg/dL [facility] Comment on above: QA FLAGS AND/OR RANG ES MODIFIED BY DEMOGRAPHIC UPDATE ON 02/14 AT 0254 WBC other (Bld) [#/Vol] 6.9 [facility] Trauma Profileon 02-14-2022 Potassium [Moles/Vol] 2.8 mmol/L Critically low 3.7-5.3 [facility] Comment on above: Performed By: #### B MPX #### [facility] [address] [place] [address] [employer]: Agustin Logan MD Anion gap [Moles/Vol] 14 mmol/L Normal 9-17 [facility] Comment on above: Performed By: #### B MPX #### [facility] [address] [place] [address] [employer]: Agustin Logan MD Chloride [Moles/Vol] 106 mmol/L Normal 98-107 [facility] Comment on above: Performed By: #### B MPX #### [facility] [address] [place] [phone] [employer]: Agustin Logan MD CO2 [Moles/Vol] 18 mmol/L Low 20-31 [facility] Comment on above: Performed By: #### B MPX #### [facility] [address] [place] [address] [employer]: Agustin Logan MD Creatinine [Mass/Vol] 0.45 mg/dL Low 0.50-0.90 [facility] Comment on above: Performed By: #### B MPX #### [facility] [address] [place] [address] [employer]: Agustin Logan MD Ethanol [Mass/Vol] 205 mg/dL High <10 [facility] Comment on above: Performed By: #### B MPX #### [employer] [address] [place] [address] [employer]: Agustin Logan MD Ethanol percent 0.205 % High <0.010 [facility] Comment on above: Performed By: #### B MPX #### [employer] [address] [place] [address] [employer]: Agustin Logan MD GFR/1.73 sq M.predicted among non-blacks MDRD (S/P/Bld) [Vol rate/Area] 60 mL/min/{1.73_m2} Low >60 [facility] Comment on above: Result Comment: These results are not intended for use in patients <18 years of age. eGFR results are calculated without a race factor using the 2020 CKD-EPI equation. Careful clinical correlation is recommended, particularly when comparing to results calculated using previous equations. The CKD-EPI equation is less accurate in patients with extremes of muscle mass, extra-renal metabolism of creatine, excessive creatine ingestion, or following therapy that affects renal tubular secretion. Performed By: #### B MPX #### [employer] [address] [place] [address] [employer]: Agustin Logan MD Glucose [Mass/Vol] 80 mg/dL Normal 70-99 [facility] Comment on above: Performed By: #### B MPX #### [employer] [address] [place] [address] [employer]: Agustin Logan MD Sodium [Moles/Vol] 138 mmol/L Normal 135-144 [facility] Comment on above: Performed By: #### B MPX #### [employer] [address] [place] [address] [employer]: Agustin Logan MD Urea nitrogen [Mass/Vol] 8 mg/dL Normal 6-20 [facility] Comment on above: Result Comment: QA F LAGS AND/OR RANGES MODIFIED BY DEMOGRAPHIC UPDATE ON 02/14 AT 0254 Performed By: #### B MPX #### [address] [address] [employer]: Agustin Logan MD aPTT Coag (Bld) [Time] 26.4 s Normal 23.0-36.5 [facility] Comment on above: Result Comment: IV Heparin Therapy Range: 66.0-92.0 sec Performed By: #### B MPX #### [address] [address] [employer]: Agustin Logan MD INR Coag (PPP) [Relative time] 1.1 {INR} Normal [facility] Comment on above: Result Comment: Therapeutic Range: Moderate Anticoagulant Intensity: INR = 2.0-3.0 High Anticoagulant Intensity: INR = 2.5-3.5 Performed By: #### B MPX #### [address] [address] [employer]: Agustin Logan MD PT Coag (PPP) [Time] 13.9 s Normal 11.7-14.9 [facility] Comment on above: Performed By: #### B MPX #### [address] [address] [employer]: Agustin Logan MD HCG Screen, Blood Negative Normal NEG [facility] Comment on above: Result Comment: Spec imens with hCG levels near the threshold of the test (25 mIU/mL) may give a negative or indeterminate result. In such cases, another test should be performed with a new specimen in 48-72 hours. If early is suspected clinically in this setting, correlation with quantitative serum b-hCG level is suggested. [employer] has confirmed the use of plasma for this test. This has not been cleared or approved by the U.S. Food and Drug Administration. The FDA has determined that such clearance is not necessary. Performed By: #### B MPX #### [address] [id number] [employer]: Agustin Logan MD Body Temp. 37.0 Normal [facility] Comment on above: Performed By: #### B MPX #### [address] [address] [employer]: Agustin Logan MD Carboxy Hgb 1.1 % Normal 0-5 [facility] Comment on above: Result Comment: Reference Range: Non-Smokers 0-2% Average Smoker 2-4% Heavy Smoker <10% Performed By: #### B MPX #### [address] [address] [employer]: Agustin Logan MD FIO2 Unknown Normal [facility] Comment on above: Performed By: #### B MPX #### [address] [address] [employer]: Agustin Logan MD HCO3 (Bld) [Moles/Vol] 22.1 mmol/L Low 24-30 [facility] Comment on above: Performed By: #### B MPX #### [address] [address] [employer]: Agustin Logan MD Negative Base Excess 3.5 mmol/L High 0.0-2.0 [facility] Comment on above: Performed By: #### B MPX #### [address] [address] [employer]: Agustin Logan MD Oxygen saturation in Blood 63.9 % Normal 60.0-85.0 [facility] Comment on above: Performed By: #### B MPX #### [address] [address] [employer]: Agustin Logan MD pCO2 45.0 mm Hg Normal 39-55 [facility] Comment on above: Performed By: #### B MPX #### [address] [address] [employer]: Agustin Logan MD pH (Bld) 7.313 [pH] Low 7.320-7.42 0 [facility] Comment on above: Performed By: #### B MPX #### [address] [address] [employer]: Agustin Logan MD pO2 37.9 mm Hg Normal 30-50 [facility] Comment on above: Performed By: #### B MPX #### [address] [address] [employer]: Agustin Logan MD Erythrocyte distribution width (RBC) [Ratio] 13.7 % Normal 11.8-14.4 [facility] Comment on above: Performed By: #### B MPX #### [address] [address] [employer]: Agustin Logan MD Hematocrit (Bld) [Volume fraction] 34.6 % Low 36.3-47.1 [facility] Comment on above: Performed By: #### B MPX #### [address] [address] [employer]: Agustin Logan MD Hemoglobin (Bld) [Mass/Vol] 11.1 g/dL Low 11.9-15.1 [facility] Comment on above: Performed By: #### B MPX #### [address] [address] [employer]: Agustin Logan MD MCH (RBC) [Entitic mass] 29.6 pg Normal 25.2-33.5 [facility] Comment on above: Performed By: #### B MPX #### [address] [address] [employer]: Agustin Logan MD MCHC (RBC) [Mass/Vol] 32.1 g/dL Normal 28.4-34.8 [facility] Comment on above: Performed By: #### B MPX #### [address] [address] [employer]: Agustin Logan MD MCV (RBC) [Entitic vol] 92.3 fL Normal 82.6-102.9 [facility] Comment on above: Performed By: #### B MPX #### [address] [address] [employer]: Agustin Logan MD NRBC Automated 0.0 per 100 WBC Normal 0.0 [facility] Comment on above: Performed By: #### B MPX #### [address] [address] [employer]: Agustin Logan MD Platelet mean volume (Bld) [Entitic vol] 10.0 fL Normal 8.1-13.5 [facility] Comment on above: Performed By: #### B MPX #### [address] [address] [employer]: Agustin Logan MD Platelets (Bld) [#/Vol] 234 10*3/uL Normal 138-453 [facility] Comment on above: Performed By: #### B MPX #### [address] [address] [employer]: Agustin Logan MD RBC (Bld) [#/Vol] 3.75 10*6/uL Low 3.95-5.11 [facility] Comment on above: Performed By: #### B MPX #### [address] [address] [employer]: Agustin Logan MD WBC (Bld) [#/Vol] 6.9 10*3/uL Normal 3.5-11.3 [facility] Comment on above: Performed By: #### B MPX #### [employer] [address] [place] [address] [employer]: Agustin Logan MD Blood Bank BILL FOR SERVICES PERFORMED Normal [facility] Comment on above: Performed By: #### B MPX #### [employer] [address] [place], [place] [id number] [employer]: Agustin Logan MD Type + Screenon 02-14-2023 Type + Screen Sample Expiration 02/17/2023,2359 Arm Band Number BE [id number] ABO/Rh(D) O NEGATIVE Antibody Screen NEGATIVE Normal [facility] Comment on above: Performed By: #### B MP, MG, CDP #### [facility] [address] [place], [place] [address] [employer]: Agustin Logan MD Urinalysison 02-14-2023 Bilirubin Ql (U) Negative NEGATIVE [facility] Trip Clarity (U) Clear Clear [facility] Color (U) Yellow Yellow [facility] Glucose Test strip (U) [Mass/Vol] Negative NEGATIVE [facility] Hemoglobin Auto test strip Ql (U) Negative NEGATIVE [facility] Interpretation and review of laboratory results Abnormal [facility] Ketones (U) [Mass/Vol] Negative NEGATIVE [facility] Leukocyte esterase Test strip Ql (U) Negative NEGATIVE [facility] Nitrite Ql (U) Negative NEGATIVE [facility] pH (U) 6.5 [pH] 5.0 - 8.0 [facility] Protein (U) [Mass/Vol] Negative NEGATIVE [facility] Specific gravity (U) [Rel density] 1.046 High 1.005 - 1.030 [facility] Urinalysis Comments Microscopic exam not performed based on chemical results unless requested in original order. [facility] Urobilinogen Qn (U) Normal Normal [facility] Urinalysis, Routineon 2022 Bilirubin, SemiQt,Ur Negative Normal NEG [facility] Comment on above: Performed By: #### U A #### [facility] [address] [place] [address] [employer]: Agustin Logan MD Blood, Urine Negative Normal NEG [facility] Comment on above: Performed By: #### U A #### [address] [address] [employer]: Agustin Logan MD Clarity (U) Clear Normal CLEAR [facility] Comment on above: Performed By: #### U A #### [address] [address] [employer]: Agustin Logan MD Color (U) Yellow Normal YEL [facility] Comment on above: Performed By: #### U A #### [address] [address] [employer]: Agustin Logan MD Comment Microscopic exam not performed based on chemical results unless requested in Normal [facility] Comment on above: Result Comment: orig inal order. Performed By: #### U A #### [address] [address] [employer]: Agustin Logan MD Glucose Ql (U) Negative Normal NEG [facility] Comment on above: Performed By: #### U A #### [address] [address] [employer]: Agustin Logan MD Ketones Ql (U) Negative Normal NEG [facility] Comment on above: Performed By: #### U A #### [address] [address] [employer]: Agustin Logan MD Leukocyte esterase Test strip Ql (U) Negative Normal NEG [facility] Comment on above: Performed By: #### U A #### [address] [id number] [employer]: Agustin Logan MD Nitrite,Ur Negative Normal NEG [facility] Comment on above: Performed By: #### U A #### [address] [address] [employer]: Agustin Logan MD PH,Ur 6.5 Normal 5.0-8.0 [facility] Comment on above: Performed By: #### U A #### [address] [address] [employer]: Agustin Logan MD Protein Ql (U) Negative Normal NEG [facility] Comment on above: Performed By: #### U A #### [address] [address] [employer]: Agustin Logan MD Spec. [place],Ur 1.046 High 1.005-1.03 0 [facility] Comment on above: Performed By: #### U A #### [address] [address] [employer]: Agustin Logan MD Urobilinogen,Ur Normal Normal NORM [facility] Comment on above: Performed By: #### U A #### [address] [address] [employer]: Agustin Logan MD XR ANKLE LEFT (MIN 3 VIEWS)o n 02-14-2023 XR ANKLE LEFT (MIN 3 VIEWS) EXAMINATION: THREE XRAY VIEWS OF THE LEFT ANKLE; TWO XRAY VIEWS OF THE RIGHT KNEE 02/14/2023 12:31 pm COMPARISON: None. HISTORY: ORDERING SYSTEM PROVIDED HISTORY: L ankle pain TECHNOLOGIST PROVIDED HISTORY: L ankle pain; ORDERING SYSTEM PROVIDED HISTORY: R knee pain, decreased ROM TECHNOLOGIST PROVIDED HISTORY: R knee pain, decreased ROM FINDINGS: There is no evidence of acute fracture. There is normal alignment. No acute joint abnormality. No focal osseous lesion. No focal soft tissue abnormality. IMPRESSION: No acute osseous abnormality of the right knee and left ankle. Interpreted by: Sly Toscano MD Signed by: Sly Toscano MD 02/14/23 Final result Normal [facility] XR CERVICAL SPINE FLEXION AN D EXTENSIONon 02-14-2023 XR CERVICAL SPINE FLEXION AND EXTENSION EXAMINATION: XRAY VIEWS OF THE CERVICAL SPINE 02/14/2023 10:04 am COMPARISON: Correlated with CT of same date HISTORY: ORDERING SYSTEM PROVIDED HISTORY: SDH from fall, CT cervical negative but still having midline tenderness TECHNOLOGIST PROVIDED HISTORY: SDH from fall, CT cervical negative but still having midline tenderness FINDINGS: All 7 cervical vertebrae are visualized and appear normal in height and alignment. Limited range of motion with extension and flexion. There is no evidence of prevertebral soft tissue edema or fracture. IMPRESSION: Limited range of motion suggesting paracervical spasm. No acute osseous abnormalities Interpreted by: Sly Toscano MD Signed by: Sly Toscano MD 02/14/23 Final result Normal [facility] Limited range of mot ion suggesting paracervical spasm. No acute osseous abnormalities [facility] EXAMINATION: XRAY VIEWS OF THE CERVICAL SPINE 02/14/2023 10:04 am COMPARISON: Correlated with CT of same date HISTORY: ORDERING SYSTEM PROVIDED HISTORY: SDH from fall, CT cervical negative but still having midline tenderness TECHNOLOGIST PROVIDED HISTORY: SDH from fall, CT cervical negative but still having midline tenderness FINDINGS: All 7 cervical vertebrae are visualized and appear normal in height and alignment. Limited range of motion with extension and flexion. There is no evidence of prevertebral soft tissue edema or fracture. [facility] Sly Toscano MD - 02/14/2023 EXAMINATION: XRAY VIEWS OF THE CERVICAL SPINE 02/14/2023 10:04 am COMPARISON: Correlated with CT of same date HISTORY: ORDERING SYSTEM PROVIDED HISTORY: SDH from fall, CT cervical negative but still having midline tenderness TECHNOLOGIST PROVIDED HISTORY: SDH from fall, CT cervical negative but still having midline tenderness FINDINGS: All 7 cervical vertebrae are visualized and appear normal in height and alignment. Limited range of motion with extension and flexion. There is no evidence of prevertebral soft tissue edema or fracture. IMPRESSION: Limited range of motion suggesting paracervical spasm. No acute osseous abnormalities [facility] Radiology Study observation (narrative) [facility] XR CERVICAL SPINE FLEXION AN D EXTENSIONOrdered By: Sly Toscano on 02-14-2023 ISACC LATASHA [facility] [employer] Work Phone: XR ELBOW RIGHT (2 VIEWS)on 0 02-14-2023 XR ELBOW RIGHT (2 VIEWS) EXAMINATION: TWO XRAY VIEWS OF THE RIGHT ELBOW; THREE XRAY VIEWS OF THE RIGHT HAND 02/14/2023 12:31 pm COMPARISON: None. HISTORY: ORDERING SYSTEM PROVIDED HISTORY: r elbow tenderness TECHNOLOGIST PROVIDED HISTORY: r elbow tenderness; ORDERING SYSTEM PROVIDED HISTORY: R hand pain, swelling, decreased ROM TECHNOLOGIST PROVIDED HISTORY: R hand pain, swelling, decreased ROM FINDINGS: The visualized bones are normal . There is no evidence of fracture or dislocation. . The joint spaces appear well maintained. The soft tissues are unremarkable. IMPRESSION: No acute bony abnormalities are noted of the right hand and right elbow Interpreted by: Sly Toscano MD Signed by: Sly Toscano MD 02/14/23 Final result Normal [facility] XR HAND RIGHT (MIN 3 VIEWS)o n 02-14-2023 XR HAND RIGHT (MIN 3 VIEWS) EXAMINATION: TWO XRAY VIEWS OF THE RIGHT ELBOW; THREE XRAY VIEWS OF THE RIGHT HAND 02/14/2023 12:31 pm COMPARISON: None. HISTORY: ORDERING SYSTEM PROVIDED HISTORY: r elbow tenderness TECHNOLOGIST PROVIDED HISTORY: r elbow tenderness; ORDERING SYSTEM PROVIDED HISTORY: R hand pain, swelling, decreased ROM TECHNOLOGIST PROVIDED HISTORY: R hand pain, swelling, decreased ROM FINDINGS: The visualized bones are normal . There is no evidence of fracture or dislocation. . The joint spaces appear well maintained. The soft tissues are unremarkable. IMPRESSION: No acute bony abnormalities are noted of the right hand and right elbow Interpreted by: Sly Toscano MD Signed by: Sly Toscano MD 02/14/23 Final result Normal [facility] XR KNEE RIGHT (1-2 VIEWS)on 02-14-2023 XR KNEE RIGHT (1-2 VIEWS) EXAMINATION: THREE XRAY VIEWS OF THE LEFT ANKLE; TWO XRAY VIEWS OF THE RIGHT KNEE 02/14/2023 12:31 pm COMPARISON: None. HISTORY: ORDERING SYSTEM PROVIDED HISTORY: L ankle pain TECHNOLOGIST PROVIDED HISTORY: L ankle pain; ORDERING SYSTEM PROVIDED HISTORY: R knee pain, decreased ROM TECHNOLOGIST PROVIDED HISTORY: R knee pain, decreased ROM FINDINGS: There is no evidence of acute fracture. There is normal alignment. No acute joint abnormality. No focal osseous lesion. No focal soft tissue abnormality. IMPRESSION: No acute osseous abnormality of the right knee and left ankle. Interpreted by: Sly Toscano MD Signed by: Sly Toscano MD 02/14/23 Final result Normal [facility] COVID + FLU Quick Testingon 12-20-2022 SARS-CoV-2 (COVID-19) RNA MAXIM+probe Ql (Unsp spec) Negative [employer] Other COVID + FLU Quick Testing Positive [employer] Other COVID + FLU Quick Testing Negative [employer] Other Covid-19 PCR ([facility])on SARS-CoV-2 (COVID-19) RNA MAXIM+probe Ql (Unsp spec) Not detected Normal NOT DETECTED [facility] Comment on above: Result Comment: When diagnostic testing is negative, the possibility of a false negative should be considered in the context of a patient's recent exposures and the presence of clinical signs and symptoms consistent with SARS-CoV-2. This test is not yet approved or cleared by the [place] FDA. When there are no FDA-approved or cleared tests available, and other criteria are met, FDA can make tests available under an emergency access mechanism called an Emergency Use Authorization (EUA). The EUA for this test is supported by the [place] of Health and Human Service's declaration that circumstances exist to justify the emergency use of in vitro diagnostics for the detection and/or diagnosis of the virus that causes COVID-19. This EUA will remain in effect for the duration of the COVID-19 declaration justifying emergency of IVDs, unless it is terminated or revoked by the FDA (after which the test may no longer be used). Performed By: #### C VDTBH #### [facility] [address] [place] [address] Dr. Viv Dumont PREG HCG QUALon 09-26-2021 , QUAL Negative Normal NEGATIVE [facility] Comment on above: Performed By: #### P REG #### [facility] [address] [place] [address] Dr. Viv Dumont Covid-19 PCR (CVDTB)on SARS-CoV-2 (COVID-19) RNA MAXIM+probe Ql (Unsp spec) Not detected Normal NOT DETECTED [facility] Comment on above: Result Comment: This test is not yet approved or cleared by the [place] FDA. When there are no FDA-approved or cleared tests available, and other criteria are met, FDA can make tests available under an emergency access mechanism called an Emergency Use Authorization (EUA). The EUA for this test is supported by the [employer] of Health and Human Service's (HHS's) declaration that circumstances exist to justify the emergency use of in vitro diagnostics for the detection and/or diagnosis of the virus that causes COVID-19. This EUA will remain in effect (meaning this test can be used) for the duration of the COVID-19 declaration justifying emergency of IVDs, unless it is terminated or revoked by FDA (after which the test may no longer be used). When diagnostic testing is negative, the possibility of a false negative should be considered in the context of a patient's recent exposures and the presence of clinical signs and symptoms consistent with SARS-CoV-2. Performed By: #### E JONATAN BRYAN #### [facility] [address] [place] [address] Cesilia Hernandez CBC AUTO DIFFon 09-18-2021 BASO # 0.0 103/ul Normal 0.0-0.1 [facility] Comment on above: Performed By: #### C BC #### [facility] [address] [place] [address] Dr. Viv Dumont Basophils/100 WBC (Bld) 0.2 % Normal 0.2-2.0 [facility] Comment on above: Performed By: #### C BC #### [facility] [address] [place] [address] Dr. Viv Dumont EO # 0.1 103/ul Normal 0.0-0.7 [facility] Comment on above: Performed By: #### C BC #### [facility] [address] [place] [address] Dr. Viv Dumont Eosinophils/100 WBC (Bld) 2.2 % Normal 0.9-7.0 [facility] Comment on above: Performed By: #### C BC #### [facility] [address] [place] [address] Dr. Viv Dumont Erythrocyte distribution width (RBC) [Ratio] 13.9 % Normal 11.0-15.0 [facility] Comment on above: Performed By: #### C BC #### [facility] [address] [place] [address] Dr. Viv Dumont Hematocrit (Bld) [Volume fraction] 36.1 % Normal 36.0-48.0 [facility] [facility] Comment on above: Performed By: #### C BC #### [facility] [address] [place] [address] Dr. Viv Dumont Hemoglobin (Bld) [Mass/Vol] 11.8 g/dL Critically low 12.0-16.0 [facility] Comment on above: Performed By: #### C BC #### [facility] [address] [place] [address] Dr. Viv Dumont IG # 0.01 10e3/ul Normal 0.00-0.03 [facility] Comment on above: Performed By: #### C BC #### [facility] [address] [place] [address] Dr. Viv Dumont IG % 0.2 % Normal 0.0-0.5 [facility] Comment on above: Performed By: #### C BC #### [facility] [address] [place] [address] Dr. Viv Dumont LYMPH # 2.0 103/ul Normal 1.2-3.8 [facility] Comment on above: Performed By: #### C BC #### [facility] [address] [place] [address] Dr. Viv Dumont Lymphocytes/100 WBC (Bld) 30.9 % Normal 20.5-60.0 [facility] Comment on above: Performed By: #### C BC #### [facility] [address] [place] [address] Dr. Viv Dumont MANUAL DIFF REQ NO Normal [facility] Comment on above: Performed By: #### C BC #### [facility] [address] [address] [address] Viv Dumont MCH (RBC) [Entitic mass] 28.9 pg Normal 26.7-34.0 [facility] Comment on above: Performed By: #### C BC #### [facility] [address] [address] [address] Viv Dumont MCHC (RBC) [Mass/Vol] 32.7 g/dL Normal 29.9-35.2 [facility] Comment on above: Performed By: #### C BC #### [facility] [address] [place] [address] Dr. Viv Dumont MCV (RBC) [Entitic vol] 88.3 fL Normal 81.0-99.0 [facility] Comment on above: Performed By: #### C BC #### [facility] [address] [place] [address] Dr. Viv Dumont MONO # 0.4 103/ul Normal 0.3-0.8 [facility] Comment on above: Performed By: #### C BC #### [facility] [address] [place] [address] Dr. Viv Dumont Monocytes/100 WBC (Bld) 6.1 % Normal 1.7-12.0 [facility] Comment on above: Performed By: #### C BC #### [facility] [address] [place] [address] Dr. Viv Dumont NEUT # 3.9 103/ul Normal 1.4-6.5 [facility] Comment on above: Performed By: #### C BC #### [facility] [address] [place] [address] Dr. Viv Dumont Neutrophils/100 WBC (Bld) 60.4 % Normal 43.0-75.0 [facility] Comment on above: Performed By: #### C BC #### [facility] [address] [place] [address] Dr. Viv Dumont Platelet mean volume (Bld) [Entitic vol] 9.7 fL Normal 9.5-13.5 [facility] Comment on above: Performed By: #### C BC #### [facility] [address] [address] [address] Viv Dumont PLT 287 103/ul Normal 150-450 [facility] Comment on above: Performed By: #### C BC #### [facility] [address] [address] [address] Viv Dumont RBC 4.09 106/ul Critically low 4.20-5.40 [facility] Comment on above: Performed By: #### C BC #### [facility] [address] [address] [address] Viv Dumont WBC 6.4 103/ul Normal 4.0-11.0 [facility] Comment on above: Performed By: #### C BC #### [facility] [address] [place] [address] Dr. Viv Dumont PAP ACOG PANEL 2: 30 to 65on 08-25-2021 . . Normal [facility] Comment on above: Result Comment: Perf ormed at: WB Performed By: #### [id number] #### [facility] [address] [place] [address] Dr. Viv Dumont Age Gdln ACOG Testing 30-65 Normal [facility] Comment on above: Performed By: #### [id number] #### [facility] [address] [place] [address] Dr. Viv Dumont DIAGNOSIS: Comment Normal [facility] Comment on above: Result Comment: NEGA TIVE FOR INTRAEPITHELIAL LESION OR MALIGNANCY. Performed at: WB Performed By: #### [id number] #### [facility] [address] [place] [address] Dr. Viv Dumont HPV Aptima Negative Normal Negative [facility] Comment on above: Result Comment: This nucleic acid amplification test detects fourteen high-risk HPV types (16,18,31,33,35,39,45,51,52,56,58,59,66,68) without differentiation. Performed at: =G Performed By: #### [id number] #### [facility] [address] [place] [address] Dr. Viv Dumont Methodology: Comment Normal [facility] Comment on above: Result Comment: This liquid based ThinPrep(R) pap test was screened with the use of an image guided system. Performed at: WB Performed By: #### [id number] #### [facility] [address] [place] [address] Dr. Viv Dumont Note: Comment Normal [facility] Comment on above: Result Comment: The Pap smear is a screening test designed to aid in the detection of premalignant and malignant conditions of the uterine cervix. It is not a diagnostic procedure and should not be used as the sole means of detecting cervical cancer. Both false-positive and false-negative reports do occur. . Performed at: WB Performed By: #### [id number] #### [facility] [address] [place] [address] Dr. Viv Dumont Performed by: Comment Normal [facility] Comment on above: Result Comment: Siddhartha Renee, Supervisor Picking Crew (ASCP) Performed at: WB Performed By: #### [id number] #### [facility] [address] [place] [address] Dr. Viv Dumont Specimen adequacy: Comment Normal [facility] Comment on above: Result Comment: Sati sfactory for evaluation. Endocervical and/or squamous metaplastic cells (endocervical component) are present. Performed at: WB Performed By: #### [id number] #### [facility] [address] [place] [address] Dr. Viv Dumont PREG QUANT HCGon 07-21-2021 HCG QUANT <1 [facility] Comment on above: Performed By: #### P REGQNT #### [facility] [address] [place] [address] Dr. Viv Dumont HCG RANGE SEE BELOW [facility] Comment on above: Result Comment: 5-50 0-1 WEEK 40-300 1-2 WEEKS 100-1,000 2-3 WEEKS 500-6,000 3-4 WEEKS 5,000-200,000 1-2 MONTHS 10,000-100,000 2-3 MONTHS 3,000-50,000 2ND TRIMESTER 1,000-50,000 3RD TRIMESTER Performed By: #### P REGQNT #### [facility] [address] [address] [address] Viv Dumont US PELVIS AND TRANSVAGon US PELVIS AND TRANSVAG EXAMINATION: US PELVIS AND TRANSVAG HISTORY: Induced COMPARISON: Ultrasound transvaginal 03/19/2021 TECHNIQUE: Transabdominal and transvaginal sonographic examination. FINDINGS: UTERUS: Normal size and appearance. Uterus size: 8.9 x 5.4 x 6.2 cm ENDOMETRIUM: Markedly thickened, 26 mm. No intrauterine gestational sac. RIGHT OVARY: Normal size and appearance. Duplex Doppler demonstrates normal waveform and flow; resistive index 0.61. Ovary size: 4.0 x 3.8 x 2.2 cm LEFT OVARY: Contains a 4.4 cm cyst, likely residual corpus luteum cyst. Duplex Doppler demonstrates normal waveform and flow; resistive index 0.55. Ovary size: 5.5 x 3.6 x 4.2 cm CUL-DE-SAC: Unremarkable. No significant free fluid. BLADDER: Unremarkable. OTHER: None. IMPRESSION: 1. Thickened endometrium and left ovarian corpus luteum cyst. The intrauterine gestational sac seen on prior study is no longer present. Electronically authenticated by: CRISS MORALES Date: 2021-04-25 10:42 Normal [facility] RHOGAMon 04-23-2021 RHOGAM Status Information I ssued Quantity 1 Product ID Rh Immune Globulin Lot Number [id number] Issue Date/Time [id number] Normal [facility] Comment on above: Performed By: #### E JONATAN BRYAN #### [facility] [address] [place], [place] [id number] Cesilia Hernandez ABO AND RH TYPEon 04-21-2021 ABO and Rh group Nom (Bld) ABO Rh Typing O Rh Negative Normal [facility] Comment on above: Performed By: #### JONATAN CORONADO #### [facility] [address] [place] [id number] Cesilia Hernandez PREG QUANT HCGon 04-14-2021 HCG QUANT 431 mIU/mL Normal [facility] Comment on above: Performed By: #### P REGQNT #### [facility] [address] [place], [place] [id number] Cesilia Mary HCG RANGE SEE BELOW Normal [facility] Comment on above: Result Comment: 5-50 0-1 WEEK 40-300 1-2 WEEKS 100-1,000 2-3 WEEKS 500-6,000 3-4 WEEKS 5,000-200,000 1-2 MONTHS 10,000-100,000 2-3 MONTHS 3,000-50,000 2ND TRIMESTER 1,000-50,000 3RD TRIMESTER Performed By: #### P REGQNT #### [facility] [address] [place] [address] Cesilia Mary PREG QUANT HCGon 04-10-2021 HCG QUANT 1426 mIU/mL Normal [facility] Comment on above: Performed By: #### P REGQNT #### [facility] [address] [place] [address] Cesilia Mary HCG RANGE SEE BELOW Normal [facility] Comment on above: Result Comment: 5-50 0-1 WEEK 40-300 1-2 WEEKS 100-1,000 2-3 WEEKS 500-6,000 3-4 WEEKS 5,000-200,000 1-2 MONTHS 10,000-100,000 2-3 MONTHS 3,000-50,000 2ND TRIMESTER 1,000-50,000 3RD TRIMESTER Performed By: #### P REGQNT #### [facility] [address] [place] [address] Cesilia Mary CBC AUTO DIFFon 03-19-2021 BASO # 0.0 103/ul Normal 0.0-0.1 [facility] Comment on above: Performed By: #### C BC #### [facility] [address] [place] [address] Cesilia Mary Basophils/100 WBC (Bld) 0.3 % Normal 0.2-2.0 [facility] Comment on above: Performed By: #### C BC #### [facility] [address] [place] [address] Cesilia Mary EO # 0.1 103/ul Normal 0.0-0.7 [facility] Comment on above: Performed By: #### C BC #### [facility] [address] [place] [address] Cesilia Mary Eosinophils/100 WBC (Bld) 1.9 % Normal 0.9-7.0 [facility] Comment on above: Performed By: #### C BC #### [facility] [address] [place] [address] Cesilia Mary Erythrocyte distribution width (RBC) [Ratio] 14.3 % Normal 11.0-15.0 [facility] Comment on above: Performed By: #### C BC #### [facility] [address] [place] [address] Cesilia Mary Hematocrit (Bld) [Volume fraction] 38.5 % Normal 36.0-48.0 [facility] Comment on above: Performed By: #### C BC #### [facility] [address] [place] [address] Cesilia Mary Hemoglobin (Bld) [Mass/Vol] 12.4 g/dL Normal 12.0-16.0 [facility] Comment on above: Performed By: #### C BC #### [facility] [address] [place] [address] Cesilia Mary IG # 0.00 10e3/ul Normal 0.00-0.03 [facility] Comment on above: Performed By: #### C BC #### [facility] [address] [place] [address] Cesilia Mary IG % 0.3 % Normal 0.0-0.5 [facility] Comment on above: Performed By: #### C BC #### [facility] [address] [place] [address] Cesilia Mary LYMPH # 2.0 103/ul Normal 1.2-3.8 [facility] Comment on above: Performed By: #### C BC #### [facility] [address] [place] [address] Cesilia Mary Lymphocytes/100 WBC (Bld) 25.9 % Normal 20.5-60.0 [facility] Comment on above: Performed By: #### C BC #### [facility] [address] [place], [place] [id number] Cesilia Hernandez MANUAL DIFF REQ NO Normal [facility] Comment on above: Performed By: #### C BC #### [facility] [address] [place], [place] [id number] Cesiliakathie Hernandez MCH (RBC) [Entitic mass] 28.4 pg Normal 26.7-34.0 [facility] Comment on above: Performed By: #### C BC #### [facility] [address] [place] [address] Cesilia Hernandez MCHC (RBC) [Mass/Vol] 32.2 g/dL Normal 29.9-35.2 [facility] Comment on above: Performed By: #### C BC #### [facility] [address] [place] [address] Cesiliakathie Hernandez MCV (RBC) [Entitic vol] 88.3 fL Normal 81.0-99.0 [facility] Comment on above: Performed By: #### C BC #### [facility] [address] [place] [address] Cesilia Hernandez MONO # 0.4 103/ul Normal 0.3-0.8 [facility] Comment on above: Performed By: #### C BC #### [facility] [address] [place] [address] Cesilia Hernandez Monocytes/100 WBC (Bld) 5.9 % Normal 1.7-12.0 [facility] Comment on above: Performed By: #### C BC #### [facility] [address] [place] [address] Cesilia Mary NEUT # 5.2 103/ul Normal 1.4-6.5 [facility] Comment on above: Performed By: #### C BC #### [facility] [address] [place] [address] Cesilia Mary Neutrophils/100 WBC (Bld) 65.7 % Normal 43.0-75.0 [facility] Comment on above: Performed By: #### C BC #### [facility] [address] [place] [address] Cesilia Mary Platelet mean volume (Bld) [Entitic vol] 9.9 fL Normal 9.5-13.5 [facility] Comment on above: Performed By: #### C BC #### [facility] [address] [place] [address] Cesilia Hernandez PLT 282 103/ul Normal 150-450 [facility] Comment on above: Performed By: #### C BC #### [facility] [address] [place] [address] Cesilia Hernandez RBC 4.36 106/ul Normal 4.20-5.40 [facility] Comment on above: Performed By: #### C BC #### [facility] [address] [place] [address] Cesilia Hernandez WBC 7.9 103/ul Normal 4.0-11.0 [facility] Comment on above: Performed By: #### C BC #### [facility] [address] [place] [address] Cseilia Hernandez ER URINE PROFILEon 1 Bilirubin Ql (U) Negative Normal NEGATIVE [facility] Comment on above: Performed By: #### Zion BRYAN UMICRO #### [facility] [address] [place] [address] Cesiliakathie Hernandez Clarity (U) CLEAR Normal CLEAR [facility] Comment on above: Performed By: #### Zion BRYAN UMICRO #### [facility] [address] [place] [address] Cesilia Mary Color (U) YELLOW Normal YELLOW [facility] Comment on above: Performed By: #### Zion BRYAN UMICRO #### [facility] [address] [place], [place] [id number] Cesiliakathie Hernandez ERUAHD A micrscopic examina tion will be performed if indicated. Normal [facility] Comment on above: Performed By: #### Zion BRYAN UMICRO #### [facility] [address] [place] [address] Cesilia Mary Glucose Ql (U) Negative Normal NEGATIVE [facility] Comment on above: Performed By: #### JO CORONADORO #### [facility] [address] [place] [address] Cesilia Mary Hemoglobin Ql (U) TRACE-INTACT Abnormal NEGATIVE [facility] Comment on above: Performed By: #### JONATAN CORONADO #### [facility] [address] [place] [address] Cesilia Mary Ketones Ql (U) Negative Normal NEGATIVE [facility] Comment on above: Performed By: #### JONATAN CORONADO #### [facility] [address] [place] [address] Cesilia Mary LEUKOCYTES Negative Normal NEGATIVE [facility] Comment on above: Performed By: #### JONATAN CORONADO #### [facility] [address] [place] [address] Cesilia Mary Nitrite Ql (U) Negative Normal NEGATIVE [facility] Comment on above: Performed By: #### JONATAN CORONADO #### [facility] [address] [place] [address] Cesilia Mary pH (U) 6.0 [pH] Normal 5-9 [facility] Comment on above: Performed By: #### JONATAN CORONADO #### [facility] [address] [place] [address] Cesilia Mary SPEC GRAVITY 1.020 Normal 1.005-<=1. 025 [facility] Comment on above: Performed By: #### JONATAN CORONADO #### [facility] [address] [place] [address] Cesilia Mary UA PROTEIN Negative Normal NEGATIVE/ TRACE [facility] Comment on above: Performed By: #### JO CORONADORO #### [facility] [address] [place] [address] Cesilia Mary UR MICRO IND INDICATED Normal [facility] Comment on above: Performed By: #### JONATAN CORONADO #### [facility] [address] [place] [address] Cesilia Mary Urobilinogen Qn (U) 0.2 {Yefri'U}/dL Normal 0.2 - 1. 0 [facility] Comment on above: Performed By: #### JONATAN CORONADO #### [facility] [address] [place], [place] [id number] Cesilia Mary PROF 14(COMP METB)on 021 Albumin [Mass/Vol] 3.8 g/dL Normal 3.5-5.0 [facility] Comment on above: Performed By: #### JONATAN CORONADO #### [facility] [address] [place] [address] Cesilia Mary Albumin/Globulin [Mass ratio] 0.9 {ratio} Normal [facility] Comment on above: Performed By: #### JONATAN CORONADO #### [facility] [address] [place] [address] Cesilia Mary ALP [Catalytic activity/Vol] 60 U/L Normal 38-126 [facility] Comment on above: Performed By: #### JONATAN CORONADO #### [facility] [address] [place] [address] Cesilia Mary ALT [Catalytic activity/Vol] 21 U/L Normal 9-52 [facility] Comment on above: Performed By: #### JONATAN CORONADO #### [facility] [address] [place] [address] Cesilia Mary Anion gap [Moles/Vol] 11.8 mmol/L Normal [facility] Comment on above: Performed By: #### JONATAN CORONADO #### [facility] [address] [place] [address] Cesilia Mary AST [Catalytic activity/Vol] 14 U/L Normal 14-36 [facility] Comment on above: Performed By: #### JONATAN CORONADO #### [facility] [address] [place] [address] Cesilia Mary Bilirubin [Mass/Vol] 0.2 mg/dL Normal 0.2-1.3 [facility] Comment on above: Performed By: #### JONATAN CORONADO #### [facility] [address] [place] [address] Cesilia Mary Calcium [Mass/Vol] 9.2 mg/dL Normal 8.4-10.2 [facility] Comment on above: Performed By: #### JONATAN CORONADO #### [facility] [address] [place] [address] Cesilia Mary Chloride [Moles/Vol] 103 mmol/L Normal 98-107 [facility] Comment on above: Performed By: #### JONATAN CORONADO #### [facility] [address] [place] [address] Cesilia Mary CO2 [Moles/Vol] 28.0 mmol/L Normal 22.0-30.0 [facility] Comment on above: Performed By: #### JONATAN CORONADO #### [facility] [address] [place] [address] Cesilia Mary Creatinine [Mass/Vol] 0.79 mg/dL Normal 0.52-1.04 [facility] Comment on above: Performed By: #### JONATAN CORONADO #### [facility] [address] [place] [address] Cesilia Mary EGFR-AF MALAYSIAN >60 Normal >=60 [facility] Comment on above: Performed By: #### JONATAN CORONADO #### [facility] [address] [place] [address] Cesilia Mary EGFR-NON AF MALAYSIAN >60 Normal >=60 [facility] Comment on above: Performed By: #### JONATAN CORONADO #### [facility] [address] [place] [address] Cesilia Mary Globulin (S) [Mass/Vol] 4.1 g/dL Normal [facility] Comment on above: Performed By: #### JONATAN CORONADO #### [facility] [address] [place] [address] Cesilia Mary Glucose [Mass/Vol] 79 mg/dL Normal 74-106 [facility] Comment on above: Performed By: #### JONATAN CORONADO #### [facility] [address] [place] [address] Cesilia Mary Potassium [Moles/Vol] 3.8 mmol/L Normal 3.4-5.0 [facility] Comment on above: Performed By: #### JONATAN CORONADO #### [facility] [address] [place], [place] [id number] Cesilia Mary Protein [Mass/Vol] 7.9 g/dL Normal 6.1-8.2 [facility] Comment on above: Performed By: #### JONATAN CORONADO #### [facility] [address] [place], [place] [id number] Cesilia Mary Sodium [Moles/Vol] 139 mmol/L Normal 137-145 [facility] Comment on above: Performed By: #### JONATAN CORONADO #### [facility] [address] [place] [address] Cesilia Mary Urea nitrogen [Mass/Vol] 12.0 mg/dL Normal 7.0-17.0 [facility] Comment on above: Performed By: #### JONATAN CORONADO #### [facility] [address] [place], [place] [id number] Cesilia Mary Urea nitrogen/Creatinine [Mass ratio] 15.2 mg/mg Normal [facility] Comment on above: Performed By: #### JONATAN CORONADO #### [facility] [address] [place], [place] [id number] Cesilia Mary URINE MICROSCOPIC ONLYon BACTERIA NONE SEEN Normal NONE SEEN [facility] Comment on above: Performed By: #### JONATAN CORONADO #### [facility] [address] [place], [place] [id number] Cesilia Mary Bacteria identified Cx Nom (U) NOT INDICATED Normal [facility] Comment on above: Performed By: #### JONATAN CORONADO #### [facility] [address] [place], [place] [id number] Cesilia Mary CAST NONE SEEN Normal NONE SEEN [facility] Comment on above: Performed By: #### JONATAN CORONADO #### [facility] [address] [place] [address] Cesilia Mary Crystals LM Nom (Urine sed) NONE SEEN Normal NONE SEEN [facility] Comment on above: Performed By: #### JO CORONADORO #### [facility] [address] [place] [address] Cesilia Mary Epithelial cells LM Ql (Urine sed) FEW Abnormal NONE SEEN /RARE [facility] Comment on above: Performed By: #### JO CORONADORO #### [facility] [address] [place] [address] Cesilia Mary MUCOUS NONE SEEN Normal NONE SEEN [facility] Comment on above: Performed By: #### JO CORONADORO #### [facility] [address] [place] [address] Cesilia Mary RBC 0-2 Normal 0-2 [facility] Comment on above: Performed By: #### JO CORONADORO #### [facility] [address] [place] [address] Cesilia Mary WBC NONE SEEN Normal NONE SEEN [facility] Comment on above: Performed By: #### Zion BRYAN UMALISSONRO #### [facility] [address] [place] [address] Cesilia Mary US PREG TVon 03-19-2021 US PREG TV EXAM: US TRANSVAGINAL HISTORY: Rule out ectopic COMPARISON: None. TECHNIQUE: Grayscale and color Doppler sonographic interrogation of the pelvis obtained with transvaginal technique. FINDINGS: There is a single intrauterine with a crown rump length of 9.5 mm. Gestational sac size of 2.71 cm. The estimated gestational age by ultrasound is 7 weeks 0 days, +/- 4 days. The heart rate is estimated at 132 beats per minute using M-mode. There is no evidence of a subchorionic hemorrhage within the uterus. Cervix measures 4.9 cm. Small amount of fluid in the cervical canal. Ovaries were normal appearance with normal blood flow. Corpus luteum cyst suggested in the right ovary. There are no adnexal masses. IMPRESSION: 1. This single viable intrauterine at approximately 7 weeks, 0 days as above. 2. Small amount of fluid noted in the endocervical canal could potentially represent blood product. No evidence of intrauterine subchronic hemorrhage. Electronically authenticated by: CHRISTINA BURRIS Date: 2021-03-19 04:29 [facility] Visit (CARDTIAGO) ----FELISA JONES ([id number]) 1985 FDate Time Provider Department10/29/17 2:30 PM EITAN LEWIS During your visit today, we recorded the following information about you: Pulse Respiration Blood pressure Weight 83/minute 18/minute 126/71 68.9 kg Height 1.702 Riley Lewis MD 10/29/2017 3:30 PM [facility] Department of Cardiovascular MedicineOUTPATIENT VISIT DATE 10/29/17OUTPATIENT VISIT TYPENEWPRIMARY CARE PHYSICIAN:Valdemar Mcclendon, DO[address] [facility] [address]Wskvd: [phone]: [phone] COMPLAINT:Patient presents with:Chest PainPalpitationsHISTORY OF PRESENT ILLNESS:Felisa Jones is a 32 year old female with a past cardiac history of syncopalepisodes ?2 and relative tachycardia most of her life.10/29/2017The patient presents today as a consult regarding syncope and tachycardia. Thepatient states that she has had a history of an irregular heartbeat and arelatively faster heart rate as a kid. She believes 2 months ago that shenoticed her heart racing more often. She states that it at times felt likesomeone was sitting on her chest. She felt like she was being stabbed in thechest. She had 2 syncopal episodes which occurred following pressure in thechest and pain in the chest. She then would become dizzy and lightheaded. Shefelt like things around her were moving or that she was moving and they werestanding still. She denies any significant confusion following the episodes.Because of the faster heart rate she has cut back on her caffeine. Shepreviously had significant amounts of coffee intake. She believes that whenher heart is racing and goes as high as 176 bpm. Many of her heart racingepisodes have rates in the 133-148 range. She does admit that she is under agreat deal of stress with her boyfriend. They are trying to blend her 3 kidswith his 3 kids. This is in addition to her family stressors with her fatherbeing in jail. The patient works at the local [employer]. 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 The patient haslearned the early symptoms for her episodes and has been able to sit down orlie down and place her feet up on the wall which seems to resolve her symptomsmuch more quickly. She has not had any further passing out. She apparentlyhad similar episodes when she was a kid but never really passed out. She alsostates that some of these symptoms are similar to her panic attacks that shehas had in the past.PAST MEDICAL HISTORYDiagnosis Date- Asthma- Hypoglycemia- Tachycardia With syncopePAST SURGICAL HISTORYProcedure Laterality Date- SECTION HX- TONSILLECTOMY AND ADENOIDECTOMY HXSocial HistorySubstance Use Topics- Smoking status: Current Some Day Smoker Packs/day: 0.20 Years: 7.00 Types: Cigarettes- Smokeless tobacco: Never Used- Alcohol use Yes Comment: occasionalFAMILY HISTORYProblem Relation Age of Onset- Family history unknown: YesALLERGIES:ALLERGIESNo Known AllergiesMEDICATIONS:buPROPi on XL (WELLBUTRIN XL) 150 mg 24 hr tablet Take 150 mg by mouth everymorning.cyclobenzaprine (FLEXERIL) 10 mg tablet TAKE 1 TABLET BY MOUTH AT BEDTIME AND 3TIMES A DAY NEEDEDmontelukast (SINGULAIR) 10 mg tablet Take 10 mg by mouth once daily.pantoprazole DR (PROTONIX) 40 mg tablet Take 40 mg by mouth every morning.fluticasone (FLONASE) 50 mcg/actuation nasal spray USE 1 SPRAY IN EACH NOSTRIL2 TIMES A DAYALBUTEROL INHALATION Inhale as instructed.REVIEW OF SYSTEMS:A complete review of systems was obtained and is remarkable for that notedabove. The remaining systems are unremarkable.I personally interviewed, confirmed and edited the above information ifobtained by others.PHYSICAL EXAMINATION:BP 126/71 Pulse 83 Resp 18 Ht 170.2 cm (5' 7ANDquot;) Wt 68.9 kg (152 lb) SpO2 100% BMI 23.81 kg/e8Dsdyrvp: Well appearing, in no acute distress.Eyes: Conjunctiva normal, sclera normalNeck: No jugular venous distention, no palpable thyromegaly.Heart: Regular rhythm, S1, S2 normal, no S3, no S4. No murmur. No carotidbruits.Respiratory: Clear to auscultation bilaterally. Good respiratory effort.GI: Soft, nontender, bowel sounds normal, no palpable hepatosplenomegalyExtremitie s: Normal pulses in distal lower extremities. Absent lower extremityedemaNeuro: Alert, cooperative with no focal deficit.Psych: Pleasant and cooperative.Skin: No rashes or wounds.CARDIOVASCULAR MEDICINE TESTING:A 12-lead electrocardiogram obtained on 10/15/2017 reveals normal sinus rhythmat 69 bpm. This is a normal ECG.Laboratory work obtained on 10/15/2017 reveals a white count of 6.5, kugzwqwkbm07.6, hematocrit 36.7, platelets 253, sodium 136, potassium 3.6, chloride 104,bicarbonate 25, glucose 88, BUN 14, creatinine 0.6, GFR greater than 60, ALT14, AST 13, albumin 4.3, TSH 1.39 and free T4 0.94.A 2-D echocardiogram obtained on 10/26/2017 reveals normal left ventricularsystolic function with an ejection fraction of 55%. There is moderate upperseptal total hypertrophy with no evidence of outflow tract obstruction. Thereis trivial tricuspid regurgitation. There is mild pulmonic insufficiency. Theright ventricular systolic pressure was 22 mmHg.A 48 hour Holter monitor obtained on 10/21/2017 reveals sinus rhythm with ratesranging from 50-144 bpm. There were occasional isolated multiform PVCs noted,6 ventricular couplets, one ventricular triplet, one brief 11 beat run ofventricular trigeminy and rare isolated PACs. There were no other runs ofsustained or nonsustained ventricular or supraventricular arrhythmiasidentified. There were no sinus pauses noted. No symptoms were reported.I have personally reviewed the above Cardiovascular Medicine Testing.IMPRESSION:1. Vasovagal syncope - ICD9: 780.2, ICD10: R55 (primary diagnosis), presumedvasovagal, no significant arrhythmic cause noted on 48 hour Holter, distinctprodrome which the patient is able to manage with maneuvers. No family historyof sudden cardiac .2. PVC (premature ventricular contraction) - ICD9: 427.69, ICD10: I49.3,ventricular couplets and one ventricular triplet, brief ventricular trigeminy,normal LV function, no symptoms reported during these episodes.3. Ventricular trigeminy - ICD9: 427.89, ICD10: I49.8, no symptoms reported.PLAN:Regular exercise treadmill study.Decrease caffeine intake as the patient is already doing.Stay hydrated.Reinforced maneuvers to try to interrupt an episode when it occurs.Consider a tilt table test in the future.Discussed the possibility of adding metoprolol ER 25 mg daily in an effort toreduce ectopy, will hold on this for now.We will contact the patient with the results of the exercise treadmill studyand make further recommendations at that time.A copy of this consultation note will be provided to the requesting physicianby way of shared medical record or to the requesting physician via U.S. Mail.This document was generated utilizing [employer] dictation. I have reviewed andverified that the contents of the document are accurate with the exception ofminor grammatical, spelling and punctuation errors.CONTACT INFORMATION:Thank you for allowing us to participate in the care of this very pleasantpatient. Please free to contact us if we can be of any further assistance.Eitan Lewis MD, FACCRthe medical centert and Callie AtkinsonDepartment of Cardiovascular MedicineSumma Healthrt and Vascular InstituteChristopher Ville [address] [place], [place] [address]Tygpuf: [phone] Referring Provider: VALDEMAR MCCLENDON [[id number]]Allergies As of Date: 10/29/2017(No Known Allergies)Date Reviewed: 10/29/2017Reviewed by: Eitan Lewis - Fully AssessedReason for Visit: Chest Pain [21] Palpitations [79]Primary Visit Diagnosis:Vasovagal syncope [R55] Other Visit Diagnoses:PVC (premature ventricular contraction) [I49.3] Ventricular trigeminy [I49.8]Order(s):EXERCISE STRESS WO IMAGING [[id number]] Order #: [id number]: 1 FUTUREPrescriptions as of 10/29/2017 Sig: BUPROPION XL 150 MG TAB Take 150 mg by mouth every mo* CYCLOBENZAPRINE 10 MG TABLET TAKE 1 TABLET BY MOUTH AT BED* MONTELUKAST 10 MG TABLET Take 10 mg by mouth once katie* PANTOPRAZOLE 40 MG TABLET,DEL* Take 40 mg by mouth every mor* FLUTICASONE 50 MCG/ACTUATION * USE 1 SPRAY IN EACH NOSTRIL 2* ALBUTEROL INHALATION Inhale as instructed.Medication notes this encounter BUPROPION XL 150 MG TAB >> Steven Reynolds RN 10/29/2017 2:29 PM >> SEAN TAN WedOct 29, 2017 2:29 PM Received from: External Pharmacy Received Sig: TAKE ONE TABLET BY MOUTH DAILYIN THE MORNING >> Steven Reynolds RN 10/29/2017 2:29 PM >> SEAN TAN WedOct 29, 2017 2:29 PM CYCLOBENZAPRINE 10 MG TABLET >> Steven Reynolds RN 10/29/2017 2:29 PM >> SEAN TAN WedOct 29, 2017 2:29 PM Received from: External Pharmacy >> Steven Reynolds RN 10/29/2017 2:29 PM >> SEAN TAN WedOct 29, 2017 2:29 PM MONTELUKAST 10 MG TABLET >> Steven Reynolds RN 10/29/2017 2:29 PM >> SEAN TAN WedOct 29, 2017 2:29 PM Received from: External Pharmacy Received Sig: TAKE 1 TABLET BY MOUTH EVERYDAY >> Steven Reynolds RN 10/29/2017 2:29 PM >> SEAN TAN WedOct 29, 2017 2:29 PM PANTOPRAZOLE 40 MG TABLET,DELAYED RELEASE >> Steven Reynolds RN 10/29/2017 2:29 PM >> SEAN TAN WedOct 29, 2017 2:29 PM Received from: External Pharmacy Received Sig: TAKE 1 TABLET BY MOUTH EVERYMORNING >> Steven Reynolds RN 10/29/2017 2:29 PM >> SEAN TAN WedOct 29, 2017 2:29 PM FLUTICASONE 50 MCG/ACTUATION NASAL SPRAY,SUSPENSION >> Steven Reynolds RN 10/29/2017 2:29 PM >> SEAN TAN WedOct 29, 2017 2:29 PM Received from: External Pharmacy >> Steven Reynolds RN 10/29/2017 2:29 PM >> SEAN TAN WedOct 29, 2017 2:29 PMProblem List As Of Date 10/29/2017 Noted Resolved Vasovagal syncope [R55] INVALID FOR* PVC (premature ventricular contraction) [I49.3] INVALID FOR* Ventricular trigeminy [I49.8] INVALID FOR* Status:Closed by ELADIO LEWIS MD on 10/29/17 [facility] PROGRESSon 10-29-2017 PROGRESS HNO ID: [id number] thor: Eitan Vanegaservice: (none)Author Type: PhysicianType: Progress NotesFiled: 10/29/2017 3:30 PMNote Text:[facility] Department of Cardiovascular MedicineOUTPATIENT VISIT DATE 10/29/17OUTPATIENT VISIT TYPENEWPRIMARY CARE PHYSICIAN:Valdemar Mcclendon, DO[address] [facility] [address]Gkcyi: [phone]: [phone] COMPLAINT:Patient presents with:Chest PainPalpitationsHISTORY OF PRESENT ILLNESS:Felisa Jones is a 32 year old female with a past cardiac history ofsyncopal episodes ?2 and relative tachycardia most of her life.10/29/2017The patient presents today as a consult regarding syncope and tachycardia. The patient states that she has had a history of an irregular heartbeatand a relatively faster heart rate as a kid. She believes 2 months agothat she noticed her heart racing more often. She states that it at timesfelt like someone was sitting on her chest. She felt like she was beingstabbed in the chest. She had 2 syncopal episodes which occurredfollowing pressure in the chest and pain in the chest. She then wouldbecome dizzy and lightheaded. She felt like things around her were movingor that she was moving and they were standing still. She denies anysignificant confusion following the episodes. Because of the faster heartrate she has cut back on her caffeine. She previously had significantamounts of coffee intake. She believes that when her heart is racing andgoes as high as 176 bpm. Many of her heart racing episodes have rates inthe 133-148 range. She does admit that she is under a great deal ofstress with her boyfriend. They are trying to blend her 3 kids with his 3kids. This is in addition to her family stressors with her father beingin jail. 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 The patient has learnedthe early symptoms for her episodes and has been able to sit down or liedown and place her feet up on the wall which seems to resolve her symptomsmuch more quickly. She has not had any further passing out. Sheapparently had similar episodes when she was a kid but never really passedout. She also states that some of these symptoms are similar to her panicattacks that she has had in the past.PAST MEDICAL HISTORYDiagnosis Date- Asthma- Hypoglycemia- Tachycardia With syncopePAST SURGICAL HISTORYProcedure Laterality Date- SECTION HX- TONSILLECTOMY AND ADENOIDECTOMY HXSocial HistorySubstance Use Topics- Smoking status: Current Some Day Smoker Packs/day: 0.20 Years: 7.00 Types: Cigarettes- Smokeless tobacco: Never Used- Alcohol use Yes Comment: occasionalFAMILY HISTORYProblem Relation Age of Onset- Family history unknown: YesALLERGIES:ALLERGIESNo Known AllergiesMEDICATIONS:buPROPi on XL (WELLBUTRIN XL) 150 mg 24 hr tablet Take 150 mg by mouthevery morning.cyclobenzaprine (FLEXERIL) 10 mg tablet TAKE 1 TABLET BY MOUTH AT BEDTIMEAND 3 TIMES A DAY NEEDEDmontelukast (SINGULAIR) 10 mg tablet Take 10 mg by mouth once daily.pantoprazole DR (PROTONIX) 40 mg tablet Take 40 mg by mouth every morning.fluticasone (FLONASE) 50 mcg/actuation nasal spray USE 1 SPRAY IN EACHNOSTRIL 2 TIMES A DAYALBUTEROL INHALATION Inhale as instructed.REVIEW OF SYSTEMS:A complete review of systems was obtained and is remarkable for that notedabove. The remaining systems are unremarkable.I personally interviewed, confirmed and edited the above information ifobtained by others.PHYSICAL EXAMINATION:BP 126/71 Pulse 83 Resp 18 Ht 170.2 cm (5' 7 ) Wt 68.9 kg (152 lb) SpO2 100% BMI 23.81 kg/h3Nljkwfp: Well appearing, in no acute distress.Eyes: Conjunctiva normal, sclera normalNeck: No jugular venous distention, no palpable thyromegaly.Heart: Regular rhythm, S1, S2 normal, no S3, no S4. No murmur. No carotidbruits.Respiratory: Clear to auscultation bilaterally. Good respiratory effort.GI: Soft, nontender, bowel sounds normal, no palpable hepatosplenomegalyExtremitie s: Normal pulses in distal lower extremities. Absent lowerextremity edemaNeuro: Alert, cooperative with no focal deficit.Psych: Pleasant and cooperative.Skin: No rashes or wounds.CARDIOVASCULAR MEDICINE TESTING:A 12-lead electrocardiogram obtained on 10/15/2017 reveals normal sinusrhythm at 69 bpm. This is a normal ECG.Laboratory work obtained on 10/15/2017 reveals a white count of 6.5,hemoglobin 12.6, hematocrit 36.7, platelets 253, sodium 136, potassium3.6, chloride 104, bicarbonate 25, glucose 88, BUN 14, creatinine 0.6, GFRgreater than 60, ALT 14, AST 13, albumin 4.3, TSH 1.39 and free T4 0.94.A 2-D echocardiogram obtained on 10/26/2017 reveals normal left ventricularsystolic function with an ejection fraction of 55%. There is moderateupper septal total hypertrophy with no evidence of outflow tractobstruction. There is trivial tricuspid regurgitation. There is mildpulmonic insufficiency. The right ventricular systolic pressure was 22mmHg.A 48 hour Holter monitor obtained on 10/21/2017 reveals sinus rhythm withrates ranging from 50-144 bpm. There were occasional isolated multiformPVCs noted, 6 ventricular couplets, one ventricular triplet, one brief 11beat run of ventricular trigeminy and rare isolated PACs. There were noother runs of sustained or nonsustained ventricular or supraventriculararrhythmias identified. There were no sinus pauses noted. No symptomswere reported.I have personally reviewed the above Cardiovascular Medicine Testing.IMPRESSION:1. Vasovagal syncope - ICD9: 780.2, ICD10: R55 (primary diagnosis),presumed vasovagal, no significant arrhythmic cause noted on 48 hourHolter, distinct prodrome which the patient is able to manage withmaneuvers. No family history of sudden cardiac .2. PVC (premature ventricular contraction) - ICD9: 427.69, ICD10: I49.3,ventricular couplets and one ventricular triplet, brief ventriculartrigeminy, normal LV function, no symptoms reported during these episodes.3. Ventricular trigeminy - ICD9: 427.89, ICD10: I49.8, no symptomsreported.PLAN:Regula r exercise treadmill study.Decrease caffeine intake as the patient is already doing.Stay hydrated.Reinforced maneuvers to try to interrupt an episode when it occurs.Consider a tilt table test in the future.Discussed the possibility of adding metoprolol ER 25 mg daily in an effortto reduce ectopy, will hold on this for now.We will contact the patient with the results of the exercise treadmillstudy and make further recommendations at that time.A copy of this consultation note will be provided to the requestingphysician by way of shared medical record or to the requesting physicianvia U.S. Mail.This document was generated utilizing [employer]ave Mediaon dictation. I have reviewedand verified that the contents of the document are accurate with theexception of minor grammatical, spelling and punctuation errors.CONTACT INFORMATION:Thank you for allowing us to participate in the care of this very pleasantpatient. Please free to contact us if we can be of any furtherassistance.Eitan Lewis MD, [facility] CENTERKENDRAthe medical centertrevin and Callei ParadaNew Wayside Emergency Hospitalmercy of Cardiovascular MedicineSumma Healthrt and Vascular InstituteChristopher Ville [address], [place] [address]Adkfhm: [phone] Normal [facility] Vital Signs Date Time Vital Sign Value Performing Clinician Facility 08-01-2024 08:48-0500 Blood Pressure Location Valdemar KAPLE [facility] 08-01-2024 08:48-0500 Body temperature 97.7 [degF] Valdemar KAPLE [facility] 08-01-2024 08:48-0500 Diastolic blood pressure 68 mm[Hg] Valdemar KAPLE [facility] 08-01-2024 08:48-0500 Heart rate 73 /min Valdemar KAPLE [facility] 08-01-2024 08:48-0500 Respiratory rate 16 /min Valdemar KAPLE [facility] 08-01-2024 08:48-0500 SaO2% (BldA) [Mass fraction] 99 % Valdemar KAPLE [facility] 08-01-2024 08:48-0500 Systolic blood pressure 110 mm[Hg] Valdemar KAPLE [facility] 05-02-2024 10:31-0400 Blood Pressure Location Valdemar KAPLE [facility] 05-02-2024 10:31-0400 Body temperature 97.88 [degF] Valdemar KAPLE [facility] 05-02-2024 10:31-0400 Diastolic blood pressure 68 mm[Hg] Valdemar KAPLE [facility] 05-02-2024 10:31-0400 Heart rate 71 /min Valdemar KAPLE [facility] 05-02-2024 10:31-0400 Respiratory rate 16 /min Valdemar KAPLE [facility] 05-02-2024 10:31-0400 SaO2% (BldA) [Mass fraction] 98 % Valdemar KAPLE [facility] 05-02-2024 10:31-0400 Systolic blood pressure 112 mm[Hg] Valdemar KAPLE [facility] 01-21-2024 08:53-0400 Blood Pressure Location Valdemar KAPLE [facility] 01-21-2024 08:53-0400 Body temperature 97.88 [degF] Valdemar KAPLE [facility] 01-21-2024 08:53-0400 Diastolic blood pressure 80 mm[Hg] Valdemar KAPLE [facility] 01-21-2024 08:53-0400 Heart rate 82 /min Valdemar KAPLE [facility] 01-21-2024 08:53-0400 SaO2% (BldA) [Mass fraction] 98 % Valdemar KAPLE [facility] 01-21-2024 08:53-0400 Systolic blood pressure 114 mm[Hg] Valdemar KAPLE [facility] 11-26-2023 08:08-0400 Blood Pressure Location Valdemar KAPLE [facility] 11-26-2023 08:08-0400 Body temperature 98.06 [degF] Valdemar KAPLE [facility] 11-26-2023 08:08-0400 Diastolic blood pressure 68 mm[Hg] Valdemar KAPLE [facility] 11-26-2023 08:08-0400 Heart rate 72 /min Valdemar KAPLE [facility] 11-26-2023 08:08-0400 Respiratory rate 16 /min Valdemar KAPLE [facility] 11-26-2023 08:08-0400 SaO2% (BldA) [Mass fraction] 99 % Valdemar KAPLE [facility] 11-26-2023 08:08-0400 Systolic blood pressure 112 mm[Hg] Valdemar KAPLE [facility] 10-14-2023 08:55-0500 Blood Pressure Location Valdemar KAPLE [facility] 10-14-2023 08:55-0500 Body temperature 98.06 [degF] Valdemar KAPLE [facility] 10-14-2023 08:55-0500 Diastolic blood pressure 70 mm[Hg] Valdemar KAPLE [facility] 10-14-2023 08:55-0500 Heart rate 85 /min Valdemar KAPLE [facility] 10-14-2023 08:55-0500 Respiratory rate 18 /min Valdemar KAPLE [facility] 10-14-2023 08:55-0500 SaO2% (BldA) [Mass fraction] 97 % Valdemar KAPLE [facility] 10-14-2023 08:55-0500 Systolic blood pressure 112 mm[Hg] Valdemar KAPLE [facility] 07-09-2023 13:20-0500 Blood Pressure Location Valdemar KAPLE [facility] 07-09-2023 13:20-0500 Body temperature 98.6 [degF] Valdemar KAPLE [facility] 07-09-2023 13:20-0500 Diastolic blood pressure 70 mm[Hg] Valdemar KAPLE [facility] 07-09-2023 13:20-0500 Heart rate 68 /min Valdemar KAPLE [facility] 07-09-2023 13:20-0500 Respiratory rate 18 /min Valdemar KAPLE [facility] 07-09-2023 13:20-0500 SaO2% (BldA) [Mass fraction] 99 % Valdemar KAPLE [facility] 07-09-2023 13:20-0500 Systolic blood pressure 118 mm[Hg] Valdemar KAPLE [facility] 04-15-2023 12:15-0400 Body temperature 98.6 [degF] [facility] 04-15-2023 12:15-0400 Diastolic blood pressure 76 mm[Hg] [facility] 04-15-2023 12:15-0400 Heart rate 78 /min [facility] 04-15-2023 12:15-0400 Respiratory rate 18 /min [facility] 04-15-2023 12:15-0400 SaO2% (BldA) [Mass fraction] 97 % [facility] 04-15-2023 12:15-0400 Systolic blood pressure 134 mm[Hg] [facility] [facility] 04-15-2023 11:08-0400 Blood Pressure Location Valdemar KAPLE [facility] 04-15-2023 11:08-0400 Body temperature 98.06 [degF] Valdemar KAPLE [facility] 04-15-2023 11:08-0400 Diastolic blood pressure 78 mm[Hg] Valdemar KAPLE [facility] 04-15-2023 11:08-0400 Heart rate 77 /min Valdemar KAPLE [facility] 04-15-2023 11:08-0400 Respiratory rate 16 /min Valdemar KAPLE [facility] 04-15-2023 11:08-0400 SaO2% (BldA) [Mass fraction] 98 % Valdemar KAPLE [facility] 04-15-2023 11:08-0400 Systolic blood pressure 124 mm[Hg] Valdemar KAPLE [facility] 04-08-2023 07:59-0400 Body temperature 98.06 [degF] [facility] 04-08-2023 07:59-0400 Diastolic blood pressure 59 mm[Hg] [facility] 04-08-2023 07:59-0400 Heart rate 77 /min [facility] 04-08-2023 07:59-0400 Respiratory rate 16 /min [facility] 04-08-2023 07:59-0400 SaO2% (BldA) [Mass fraction] 97 % [facility] 04-08-2023 07:59-0400 Systolic blood pressure 146 mm[Hg] [facility] 04-08-2023 07:44-0400 Body temperature 98.06 [degF] [facility] 04-08-2023 07:44-0400 Diastolic blood pressure 68 mm[Hg] [facility] 04-08-2023 07:44-0400 Heart rate 81 /min [facility] 04-08-2023 07:44-0400 Respiratory rate 16 /min [facility] 04-08-2023 07:44-0400 SaO2% (BldA) [Mass fraction] 97 % [facility] 04-08-2023 07:44-0400 Systolic blood pressure 133 mm[Hg] [facility] 03-10-2023 17:29-0400 Diastolic blood pressure 62 mm[Hg] Anyi Ghosh MD Work Phone: [facility] [employer] 03-10-2023 17:29-0400 Heart rate 66 /min Anyi Ghosh MD Work Phone: [employer] 03-10-2023 17:29-0400 Respiratory rate 15 /min Anyi Ghosh MD Work Phone: [employer] 03-10-2023 17:29-0400 SaO2% (BldA) [Mass fraction] 98 % Anyi Ghosh MD Work Phone: [employer] 03-10-2023 17:29-0400 Systolic blood pressure 108 mm[Hg] Anyi Ghosh MD Work Phone: [employer] 03-10-2023 07:55-0400 Body temperature 97.3 [degF] Anyi Ghosh MD Work Phone: [employer] 03-09-2023 22:17-0400 Body height 167.6 cm Anyi Ghosh MD Work Phone: [employer] 03-09-2023 22:17-0400 Body mass index (BMI) [Ratio] 25.5 kg/m2 Anyi Ghosh MD Work Phone: [employer] 03-09-2023 22:17-0400 Body weight 71.67 kg Anyi Ghosh MD Work Phone: [employer] 02-22-2023 07:30-0400 Body temperature 98.01 [degF] Carlos Melendez DO Work Phone: [employer] 02-22-2023 07:30-0400 Diastolic blood pressure 64 mm[Hg] Carlos Melendez DO Work Phone: [employer] 02-22-2023 07:30-0400 Heart rate 65 /min Carlos Melendez DO Work Phone: [employer] 02-22-2023 07:30-0400 SaO2% (BldA) [Mass fraction] 98 % Carlos Melendez DO Work Phone: [employer] 02-22-2023 07:30-0400 Systolic blood pressure 106 mm[Hg] Carlos Melendez DO Work Phone: [employer] 02-21-2023 19:29-0400 Respiratory rate 18 /min Carlos Melendez DO Work Phone: [employer] 02-15-2023 07:47-0400 Body temperature 37.0 Carlos Melendez DO Work Phone: [employer] 02-14-2023 05:00-0400 Body mass index (BMI) [Ratio] 25.62 kg/m2 Carlos Melendez DO Work Phone: [employer] 02-14-2023 05:00-0400 Body weight 72 kg Carlos Melendez DO Work Phone: [employer] 02-14-2023 01:22-0400 Body temperature 37.0 Carlos Melendez DO Work Phone: [employer] 02-14-2023 00:52-0400 Body height 167.6 cm Carlos Melendez DO Work Phone: [employer] 12-22-2022 11:10-0400 Blood Pressure Location Valdemar MCCLENDON [facility] 12-22-2022 11:10-0400 Body temperature 98.78 [degF] Valdemar CORONALE [facility] 12-22-2022 11:10-0400 Diastolic blood pressure 80 mm[Hg] Valdemar KAPLE [facility] 12-22-2022 11:10-0400 Heart rate 82 /min Valdemar KAPLE [facility] 12-22-2022 11:10-0400 SaO2% (BldA) [Mass fraction] 96 % Valdemar CORONALE [facility] 12-22-2022 11:10-0400 Systolic blood pressure 124 mm[Hg] Valdemar CORONALE [facility] 12-20-2022 14:50-0400 Body height 170.18 cm Karen Marshall Other [employer] Other 12-20-2022 14:50-0400 Body mass index (BMI) [Ratio] 23.33 kg/m2 Karen Angeller Other [employer] Other 12-20-2022 14:50-0400 Body temperature 99.3 [degF] Karen Marshall Other [employer] Other 12-20-2022 14:50-0400 Body weight 67.59 kg Karen Marshall Other [employer] Other 12-20-2022 14:50-0400 Respiratory rate 16 /min Karen Marshall Other [employer] Other 12-20-2022 14:50-0400 SaO2% (BldA) [Mass fraction] 98 % Karen Marshall Other [facility] [employer] Other 09-24-2022 08:54-0500 Blood Pressure Location Valdemar CORONALE [facility] 09-24-2022 08:54-0500 Diastolic blood pressure 82 mm[Hg] Valdemar KAPLE [facility] 09-24-2022 08:54-0500 Heart rate 76 /min Valdemar KAPLE [facility] 09-24-2022 08:54-0500 Respiratory rate 18 /min Valdemar KAPLE [facility] 09-24-2022 08:54-0500 SaO2% (BldA) [Mass fraction] 100 % Valdemar KAPLE [facility] 09-24-2022 08:54-0500 Systolic blood pressure 120 mm[Hg] Valdemar KAPLE [facility] 07-15-2022 12:38-0500 Blood Pressure Location Donna Cogar [facility] 07-15-2022 12:38-0500 Body temperature 98.6 [degF] Donna Cogar [facility] 07-15-2022 12:38-0500 Diastolic blood pressure 72 mm[Hg] Donna Cogar [facility] 07-15-2022 12:38-0500 Heart rate 67 /min Donna Cogar [facility] 07-15-2022 12:38-0500 SaO2% (BldA) [Mass fraction] 98 % Donna Cogar [facility] 07-15-2022 12:38-0500 Systolic blood pressure 118 mm[Hg] Donna Cogar [facility] 06-23-2022 09:06-0400 Blood Pressure Location Valdemar MCCLENDON [facility] 06-23-2022 09:06-0400 Body temperature 98.24 [degF] Valdemar KAPLE [facility] 06-23-2022 09:06-0400 Diastolic blood pressure 72 mm[Hg] Valdemar KAPLE [facility] 06-23-2022 09:06-0400 Heart rate 82 /min Valdemar KAPLE [facility] 06-23-2022 09:06-0400 Respiratory rate 16 /min Valdemar KAPLE [facility] 06-23-2022 09:06-0400 SaO2% (BldA) [Mass fraction] 98 % Valdemar KAPLE [facility] 06-23-2022 09:06-0400 Systolic blood pressure 118 mm[Hg] Valdemar KAPLE [facility] 03-12-2022 08:09-0400 Blood Pressure Location Valdemar KAPLE [facility] 03-12-2022 08:09-0400 Body temperature 98.24 [degF] Valdemar KAPLE [facility] 03-12-2022 08:09-0400 Diastolic blood pressure 62 mm[Hg] Valdemar KAPLE [facility] 03-12-2022 08:09-0400 Heart rate 68 /min Valdemar KAPLE [facility] 03-12-2022 08:09-0400 Respiratory rate 16 /min Valdemar KAPLE [facility] 03-12-2022 08:09-0400 SaO2% (BldA) [Mass fraction] 100 % Valdemar KAPLE [facility] 03-12-2022 08:09-0400 Systolic blood pressure 110 mm[Hg] Valdemar KAPLE [facility] 12-04-2021 13:39-0400 Blood Pressure Location Valdemar KAPLE [facility] 12-04-2021 13:39-0400 Body temperature 98.24 [degF] Valdemar KAPLE [facility] 12-04-2021 13:39-0400 Diastolic blood pressure 76 mm[Hg] Valdemar KAPLE [facility] 12-04-2021 13:39-0400 Heart rate 87 /min Valdemar KAPLE [facility] 12-04-2021 13:39-0400 Respiratory rate 16 /min Valdemar KAPLE [facility] 12-04-2021 13:39-0400 SaO2% (BldA) [Mass fraction] 98 % Valdemar KAPLE [facility] 12-04-2021 13:39-0400 Systolic blood pressure 116 mm[Hg] Valdemar KAPLE [facility] Encounters Encounter Date Encounter Type Care Provider Facility Start: 10-31-2024 ambulatory Valdemar A KAPLE Facility: [facility] Start: 09-25-2024 End: 09-25-2024 ambulatory Yaya Johnson MD Facility:[facility] Start: 08-01-2024 End: 08-01-2024 ambulatory Valdemar A KAPLE Facility:[facility] Start: 08-01-2024 End: 08-01-2024 Patient encounter procedure Valdemar A KAPLE [facility] Start: 07-17-2024 End: 07-17-2024 Emergency department patient visit VALDEMAR A CHLOELE [facility] Start: 05-02-2024 End: 05-02-2024 ambulatory Valdemar A KAPLE Facility:[facility] Start: 05-02-2024 End: 05-02-2024 Patient encounter procedure Valdemar A KAPLE [facility] Start: 01-21-2024 End: 01-21-2024 ambulatory Valdemar A KAPLE Facility:[facility] Start: 01-21-2024 End: 01-21-2024 Patient encounter procedure Valdemar A KAPLE [facility] Start: 11-26-2023 End: 11-26-2023 ambulatory Valdemar A KAPLE Facility:[facility] Start: 11-26-2023 End: 11-26-2023 Patient encounter procedure Valdemar A KAPLE [facility] Start: 11-22-2023 ambulatory Valdemar A KAPLE Facility: [facility] Start: 10-14-2023 End: 10-14-2023 ambulatory Valdemar A KAPLE Facility:[facility] Start: 10-14-2023 End: 10-14-2023 Patient encounter procedure Valdemar MCCLENDON [facility] Start: 07-09-2023 End: 07-09-2023 Patient encounter procedure Valdemar MCCLENDON [facility] Start: 05-28-2023 End: 05-31-2023 ambulatory YARA KING [facility] Start: 04-15-2023 End: 04-15-2023 Emergency department patient visit Darleen Gutiérrez [facility] Start: 04-15-2023 End: 04-15-2023 Patient encounter procedure Valdemar MCCLENDON [facility] Start: 04-08-2023 End: 04-08-2023 Emergency department patient visit Joseph Thompson [facility] Start: 03-09-2023 End: 03-10-2023 [facility]: 03-09-2023 End: 03-10-2023 Emergency department patient visit Anyi Ghosh MD Work Phone: [facility] Comment on above: Syncope and collapse (Primary Dx); SDH (subdural hematoma) (HCC) Start: 02-22-2023 End: 03-04-2023 Evaluation and management of inpatient PHYSICIAN NO FAMILY Facility:[facility] Start: 02-14-2023 End: 02-22-2023 Evaluation and management of inpatient FELISA CHILELJOANN [facility] Start: 02-14-2023 End: 02-22-2023 Evaluation and management of inpatient Carlos Melendez DO Work Phone: [facility]Med Surg Comment on above: Fall, initial encoun ter (Primary Dx); SDH (subdural hematoma) (HCC) Start: 12-22-2022 End: 12-22-2022 Patient encounter procedure Valdemar MCCLENDON [facility] Start: 12-20-2022 End: 12-20-2022 ambulatory Karen Marshall Other [employer] Other Start: 12-20-2022 Office outpatient ne w 30 minutes Karen Marshall [facility] Start: 09-24-2022 End: 09-24-2022 Patient encounter procedure Valdemar MCCLENDON [facility] Start: 07-15-2022 End: 07-15-2022 Patient encounter procedure Donna Arora [facility] Start: 06-23-2022 End: 06-23-2022 Patient encounter procedure Valdemar MCCLENDON [facility] Start: 03-12-2022 End: 03-12-2022 Patient encounter procedure Valdemar MCCLENDON [facility] Start: 12-04-2021 End: 12-04-2021 Patient encounter procedure Valdemar MCCLENDON [facility] Start: 09-29-2021 Encounter for preprocedural laboratory examination DR LEONILA PEREZ [facility] Start: 09-26-2021 End: 09-26-[address] LEONILA PEREZ Facility:[facility] Start: 09-25-2021 End: 09-26-[address] LEONILA PEREZ Facility:[facility] Start: 09-25-2021 End: 09-26-2021 Encounter for preprocedural laboratory examination DR LEONILA PEREZ Facility:[facility] Start: 09-22-2021 Encounter for preprocedural cardiovascular examination DR LEONILA PEREZ [facility] Start: 09-18-2021 End: 09-19-[address] LEONILA PEREZ Facility:[facility] Start: 08-19-2021 End: 08-19-[address] LEONILA PEREZ Facility:[facility] Start: 07-21-2021 End: 07-22-2021 ambulatory NONE LISTED REQUEST Facility:[facility] Start: 05-09-2021 End: 05-09-2021 RhD negative Valdemar [facility] Start: 04-25-2021 End: 04-26-[address] CRISS MORALES Facility:[facility] Start: 04-21-2021 End: 04-23-2021 ambulatory NONE LISTED REQUEST Facility:[facility] Start: 04-10-2021 End: 04-23-[address] DOCTOR RUBI Facility:[facility] Start: 03-19-2021 End: 03-19-[address] CLAUDETTE DODD Facility:[facility] Start: 10-29-2017 End: 11-03-2017 Ambulatory EITAN LEWIS [facility] Procedures Date Procedure Procedure Detail Performing Clinician Start: 03-10-2023 Basic metabolic pane l calcium total David Herrera MD Work Phone: Start: 03-09-2023 COVID-19, RAPID Amer Ab Rita Herrera MD Work Phone: Start: 03-09-2023 Ecg routine ecg w/le ast 12 lds w/i&r Philip Lainez [employer] Work Phone: Start: 03-09-2023 Drug tst prsmv instr mnt chem analyzers pr date Philip Lainez [employer] Work Phone: Start: 03-09-2023 Ct head/brain w/o co ntrast material Philip Lainez [employer] Work Phone: Start: 03-09-2023 Assay of ethanol Sonali Dahl DO Work Phone: Start: 03-09-2023 End: 03-09-2023 Basic metabolic panel calcium total Philip Lainez DO Work Phone: Start: 03-09-2023 Ecg routine ecg w/le ast 12 lds w/i&r Dottie Cuello MD Work Phone: Start: 03-09-2023 Ct cervical spine w/ o contrast material Philip Lainez DO Work Phone: Start: 03-09-2023 Ct head/brain w/o co ntrast material Philip Lainez DO Work Phone: Start: 02-21-2023 BASIC METABOLIC PANE L W/ REFLEX TO MG FOR LOW K Fabiola Heaton [employer] - [employer]IST Work Phone: Start: 02-20-2023 BASIC METABOLIC PANE L W/ REFLEX TO MG FOR LOW K Fabiola Garcia Sudarshan [employer] - [employer]PORATE REAL ESTATE [employer]IST Work Phone: Start: 02-19-2023 BASIC METABOLIC PANE L W/ REFLEX TO MG FOR LOW K Fabiola Heaton [employer] - [employer]PORATE REAL ESTATE [employer]IST Work Phone: Start: 02-19-2023 Blood count complete auto&auto difrntl wbc Fabiola Heaton [employer] - [employer]PORATE [employer] ESTATE [employer]IST Work Phone: Start: 02-18-2023 Ct head/brain w/o co ntrast material Fabiola Heaton [employer] - [employer]PORATE [employer]STATE [employer]IST Work Phone: Start: 02-15-2023 Assay of ammonia Aaron Lopez MD Work Phone: Start: 02-15-2023 Blood gases any comb ination ph pco2 po2 co2 hco3 Dottie Cuello MD Work Phone: Start: 02-15-2023 Calcium ionized Chata hero Cuello MD Work Phone: Start: 02-15-2023 Comprehensive metabo lic panel Randall Pereira MD Work Phone: Start: 02-14-2023 Radex elbow 2 views Serge Pereira MD Work Phone: Start: 02-14-2023 Assay of lactate Keya [place] DO Work Phone: Start: 02-14-2023 Radex spine cervical 2 or 3 views Randall Pereira MD Work Phone: Start: 02-14-2023 Ct head/brain w/o co ntrast material Judi Clifford DO Work Phone: Start: 02-14-2023 Drug tst prsmv instr mnt chem analyzers pr date Judi Zion Clifford DO Work Phone: Start: 02-14-2023 Urnls dip stick/tabl et rgnt auto w/o microscopy Judi Cervantesnn DO Work Phone: Start: 02-14-2023 BASIC METABOLIC PANE L W/ REFLEX TO MG FOR LOW K Judi Cervantesnn DO Work Phone: Start: 02-14-2023 Calcium ionized Judi Clifford DO Work Phone: Start: 02-14-2023 Hepatic function panel Judi Clifford DO Work Phone: Start: 02-14-2023 Iadna s aureus methi cillin resist amp probe tq Felisa Segura MD Work Phone: Start: 02-14-2023 Ecg routine ecg w/le ast 12 lds trcg only w/o i&r Dottie Cuello MD Work Phone: Start: 02-14-2023 Ct cervical spine w/ o contrast material Keya Ulises DO Work Phone: Start: 02-14-2023 Ct head/brain w/o co ntrast material Keya [place] DO Work Phone: Start: 02-14-2023 CT LUMBAR SPINE TRAU MA RECONSTRUCTION Keya Ulises DO Work Phone: Start: 02-14-2023 CT THORACIC SPINE TR AUMA RECONSTRUCTION Keya [place] DO Work Phone: Start: 02-14-2023 Ct thorax w/contrast material Keya [place] DO Work Phone: Start: 02-14-2023 TRAUMA PANEL Carlos ch DO Work Phone: Start: 02-14-2023 Blood typing serologic abo Carlos Melendez DO Work Phone: Start: 06-01-2012 Nerve block Valdemar Donovan Comment on above: had six total Start: 05-20-2011 Lumbar epidural ster oid injection Valdemar MCCLENDON Comment on above: L5-S1 section Valdemar MCCLENDON Epidural injection o f lumbar spine using fluoroscopic guidance Valdemar MCCLENDON Comment on above: L5-S1 Dr Lee Renee 09/04/19 and 09/17/19 Tonsillectomy Valdemar MCCLENDON Plan of Treatment Date Care Activity Detail Author Start: 09-27-2023 DTaP/Tdap/Td vaccine (2 - Td or Tdap) DTaP/Tdap/Td vaccine (2 - Td or Tdap) [facility] Start: 04-09-2023 End: 04-09-2023 Patient encounter procedure 04/09/2023 Office Visit Neurosurgery Yara King, D[employer] CLE[employer]ER - [employer]PORATE REAL ESTATE SPECIALIST [address] [facility] [address] [place] [address] [facility] Start: 03-23-2023 Influenza vaccination Flu vaccine (# 1) [facility] Start: 03-05-2023 End: 03-05-2023 Patient encounter procedure 03/05/2023 Office Visit Neurosurgery Yara King, [employer] - [employer]PORATE [employer]STATE [employer]IST [address] [facility] [address] [place] [address] [facility] Start: 03-01-2023 End: 02-16-2024 CT HEAD WO CONTRAST CT HEAD WO CONTRAST Imaging Routine SDH (subdural hematoma) (HCC) Expected: 03/01/2023, Expires: 02/16/2024 [employer] Work Phone: Comment on above: Expected: 03/01/2023 , Expires: 02/16/2024 Start: 2015 Screening for malign ant neoplasm of cervix [employer] Start: 2006 Screening for malign ant neoplasm of cervix Pap smear [facility] [employer] Start: 2003 Hepatitis C screening Hepatitis C sc reen [facility] [employer] Start: 2000 HIV screening HIV screen [email or web address] Start: 1997 Depression Screen Depression Screen [employer] Start: 1986 Varicella vaccine (1 of 2 - 2-dose childhood series) Varicella vaccine (1 of 2 - 2-dose childhood series) [employer] Start: 1985 COVID-19 Vaccine (#1) COVID-19 Vacci ne (#1) [employer] End: 03-13-2023 CBC W Auto Differential panel - Blood CBC with Auto Differential Lab Routine Daily for 4 Occurrences starting 03/10/2023 until 03/13/2023, 1 completed [employer] Work Phone: Comment on above: Daily for 4 Occurren toribio starting 03/10/2023 until 03/13/2023, 1 completed End: 03-13-2023 Magnesium [Mass/volume] in Serum or Plasma Magnesium Lab Routine Daily for 4 Occurrences starting 03/10/2023 until 03/13/2023, 1 completed [employer] Comment on above: Daily for 4 Occurren toribio starting 03/10/2023 until 03/13/2023, 1 completed End: 02-14-2023 Speech and language therapy regime Speech language pathology evaluation PRESSURE TESTER Routine One Time for 1 Occurrences starting 02/14/2023 until 02/14/2023 [employer] Phone: Comment on above: One Time for 1 Occur rences starting 02/14/2023 until 02/14/2023 End: 03-27-2023 Spirometry panel Incentive spirometry Respiratory Care Routine Every 1hr while awake for 41 Days starting 02/14/2023 until 03/27/2023 [facility] Comment on above: Every 1hr while awak e for 41 Days starting 02/14/2023 until 03/27/2023 Immunizations Immunization Date Immunization Notes Care Provider Mary Ellen madison 05-25-2019 influenza virus vaccine, unspecified formulation Valdemar MCCLENDON [facility] 09-27-2013 tetanus toxoid, reduced diphtheria toxoid, and acellular pertussis vaccine, adsorbed Valdemar MCCLENDON [facility] 05-28-2011 influenza virus vaccine, unspecified formulation Valdemar MCCLENDON [facility] NEGATED: Highlighted row has not occurred!05-02-2024 influenza virus vaccine, unspecified formulation Valdemar MCCLENDON [facility] NEGATED: Highlighted row has not occurred!07-09-2023 influenza virus vaccine, unspecified formulation Valdemar MCCLENDON [facility] NEGATED: Highlighted row has not occurred!09-24-2022 influenza virus vaccine, unspecified formulation Valdemar MCCLENDON [facility] NEGATED: Highlighted row has not occurred!09-24-2022 SARS-CoV-2 mRNA (tozinameran 5y-11y) vaccine Valdemar MCCLENDON [facility] Payers Date Payer Category Payer Worker's Compensation 2023 Self-pay 2022 Private Health Insurance [id number] 1985 Unknown [id number] 2.16.84 [id number] 1985 Unknown [id number] 2.16.84 0.1.525756.3.579.2.593 1985 Unknown [id number] 2.16.84 0.1.155189.3.579.2.593 1985 Unknown [id number] 2.16.84 0.1.301140.3.579.2.593 1985 Unknown [id number] 2.16.84 0.1.512141.3.579.2.593 1985 Unknown [id number] 2.16.84 0.1.239321.3.579.2.593 1985 Unknown [id number] 2.16.84 0.1.341697.3.579.2.593 1985 Unknown [id number] 2.16.84 0.1.147461.3.579.2.593 1985 Unknown [id number] 2.16.84 0.1.540666.3.579.2.593 1985 Unknown [id number] 2.16. 840.1.217872.3.579.2.175 1985 Unknown [id number] 2.16. 840.1.664489.3.579.2.175 1985 Unknown [id number] 2.16. 840.1.624836.3.579.2.175 1985 Unknown [id number] 2.16. 840.1.105728.3.579.2.175 1985 Unknown [id number] 2.16.8 40.1.562057.3.579.2.1286 1985 Unknown [id number] 2.16.8 40.1.063113.3.579.2.727 1985 Unknown [id number] 2.16.8 40.1.437934.3.579.2.727 1985 Unknown [id number] 2.16.8 40.1.291980.3.579.2.727 1985 Unknown [id number] 2.16.8 40.1.920240.3.579.2.727 1985 Unknown [id number] 2.16.8 40.1.863427.3.579.2.727 1985 Unknown [id number] 2.16.8 40.1.651656.3.579.2.727 1985 Unknown [id number] 2.16.8 40.1.019900.3.579.2.727 1985 Unknown [id number] 2.16. 840.1.913608.3.579.2.196 1959 Unknown [id number] Unknown [id number] 2.16.8 40.1.107086.3.579.2.531 Worker's Compensation [id number] Social History Date Type Detail Facility Start: 03-07-2021 Tobacco smoking status Light t obacco smoker (finding) [facility] Start: 07-15-2022 End: 08-01-2024 Tobacco smoking status Ex-smoker (finding) [facility] Sex Assigned At Female [facility] Tobacco smoking status Never [facility] Tobacco smoking stat [facility] Tobacco smoking consumption unknown [facility] Start: 1985 Sex Assigned At Not on file B [facility] Functional Status Date Assessment Result Facility 08-01-2024 Functional Status N/A [facility] 05-02-2024 Functional Status N/A [facility] 01-21-2024 Functional Status N/A [facility] 11-26-2023 Functional Status N/A [facility] 10-14-2023 Functional Status N/A [facility] 07-09-2023 Functional Status N/A [facility] 04-15-2023 Functional Status N/A [facility] 04-15-2023 Functional Status N/A [facility] 04-08-2023 Functional Status N/A [facility] 12-22-2022 Functional Status N/A [facility] 09-24-2022 Functional Status N/A [facility] 07-15-2022 Functional Status N/A [facility] [facility]-23-2022 Functional Status N/A [facility] 03-12-2022 Functional Status N/A [facility] Clinical Notes 03-12-2022 to 08-01-2024 Note Date & Type Note Facility 08-01-2024 Hospital Discharg e instructions Patient Education 08/01/2024 10:08:39 Steps to Quit Smoking Steps to Quit Smoking Smoking tobacco is the leading cause of preventable . It can affect almost every organ in the body. Smoking puts you and those around you at risk for developing many serious chronic diseases. Quitting smoking can be very challenging. Do not get discouraged if you are not successful the first time. Some people need to make many attempts to quit before they achieve long-term success. Do your best to stick to your quit plan, and talk with your health care provider if you have any questions or concerns. How do I get ready to quit? When you decide to quit smoking, create a plan to help you succeed. Before you quit: Pick a date to quit. Set a date within the next 2 weeks to give you time to prepare. Write down the reasons why you are quitting. Keep this list in places where you will see it often. Tell your family, friends, and co-workers that you are quitting. Support from people you are close to can make quitting easier. Talk with your health care provider about your options for quitting smoking. Find out what treatment options are covered by your health insurance. Identify people, places, things, and activities that make you want to smoke (triggers). Avoid them. What first steps can I take to quit smoking? Throw away all cigarettes at home, at work, and in your car. Throw away smoking accessories, such as ashtrays and lighters. Clean your car. Make sure to empty the ashtray. Clean your home, including curtains and carpets. What strategies can I use to quit smoking? Talk with your health care provider about combining strategies, such as taking medicines while you are also receiving in-person counseling. Using these two strategies together makes you more likely to succeed in quitting than if you used either strategy on its own. If you are or , talk with your health care provider about finding counseling or other support strategies to quit smoking. Do not take medicine to help you quit smoking unless your health care provider tells you to. Quit right away Quit smoking completely, instead of gradually reducing how much you smoke over a period of time. Stopping smoking right away may be more successful than gradually quitting. Attend in-person counseling to help you build problem-solving skills. You are more likely to succeed in quitting if you attend counseling sessions regularly. Even short sessions of 10 minutes can be effective. Take medicine You may take medicines to help you quit smoking. Some medicines require a prescription. You can also purchase ecnv-tia-gkasrid medicines. Medicines may have nicotine in them to replace the nicotine in cigarettes. Medicines may: Help to stop cravings. Help to relieve withdrawal symptoms. Your health care provider may recommend: Nicotine patches, gum, or lozenges. Nicotine inhalers or sprays. Non-nicotine medicine that you take by mouth. Find resources Find resources and support systems that can help you quit smoking and remain smoke-free after you quit. These resources are most helpful when you use them often. They include: Online chats with a counselor. Telephone quitlines. Printed self-help materials. Support groups or group counseling. Text messaging programs. Mobile phone apps or applications. Use apps that can help you stick to your quit plan by providing reminders, tips, and encouragement. Examples of free services include Quit Guide from the CDC and smokefree.gov What can I do to make it easier to quit? Reach out to your family and friends for support and encouragement. Call telephone quitlines, such as 7-585-OBKW-NOW, reach out to support groups, or work with a counselor for support. Ask people who smoke to avoid smoking around you. Avoid places that trigger you to smoke, such as bars, parties, or smoke-break areas at work. Spend time with people who do not smoke. Lessen the stress in your life. Stress can be a smoking trigger for some people. To lessen stress, try: ?Exercising regularly. ?Doing deep-breathing exercises. ?Doing yoga. ?Meditating. What benefits will I see if I quit smoking? Over time, you should start to see positive results, such as: Improved sense of smell and taste. Decreased coughing and sore throat. Slower heart rate. Lower blood pressure. Clearer and healthier skin. The ability to breathe more easily. Fewer sick days. Summary Quitting smoking can be very challenging. Do not get discouraged if you are not successful the first time. Some people need to make many attempts to quit before they achieve long-term success. When you decide to quit smoking, create a plan to help you succeed. Quit smoking right away, not slowly over a period of time. Find resources and support systems that can help you quit smoking and remain smoke-free after you quit. This information is not intended to replace advice given to you by your health care provider. Make sure you discuss any questions you have with your health care provider. Document Revised: 07/31/2022 Document Reviewed: 07/31/2022 [employer] Patient Education 2023 [employer]. Follow Up Care 05/02/2024 10:59:21 With:BHARAT MOREJON FAAFP, DIANNE Danielle, PED Address: [address], [facility] [place] [address]- When:Within 3 Month(s) [facility] 08-01-2024 Note Patient Education Pulmonary Medicine Steps to Quit Smoking Smoking tobacco is the leading cause of preventable . It can affect almost every organ in the body. Smoking puts you and those around you at risk for developing many serious chronic diseases. Quitting smoking can be very challenging. Do not get discouraged if you are not successful the first time. Some people need to make many attempts to quit before they achieve long-term success. Do your best to stick to your quit plan, and talk with your health care provider if you have any questions or concerns. How do I get ready to quit? When you decide to quit smoking, create a plan to help you succeed. Before you quit: ??? Pick a date to quit. Set a date within the next 2 weeks to give you time to prepare. ??? Write down the reasons why you are quitting. Keep this list in places where you will see it often. ??? Tell your family, friends, and co-workers that you are quitting. Support from people you are close to can make quitting easier. ??? Talk with your health care provider about your options for quitting smoking. ??? Find out what treatment options are covered by your health insurance. ??? Identify people, places, things, and activities that make you want to smoke (triggers). Avoid them. What first steps can I take to quit smoking? Throw away all cigarettes at home, at work, and in your car. ??? Throw away smoking accessories, such as ashtrays and lighters. ??? Clean your car. Make sure to empty the ashtray. ??? Clean your home, including curtains and carpets. What strategies can I use to quit smoking? Talk with your health care provider about combining strategies, such as taking medicines while you are also receiving in-person counseling. Using these two strategies together makes you more likely to succeed in quitting than if you used either strategy on its own. If you are or , talk with your health care provider about finding counseling or other support strategies to quit smoking. Do not take medicine to help you quit smoking unless your health care provider tells you to. Quit right away ??? Quit smoking completely, instead of gradually reducing how much you smoke over a period of time. Stopping smoking right away may be more successful than gradually quitting. ??? Attend in-person counseling to help you build problem-solving skills. You are more likely to succeed in quitting if you attend counseling sessions regularly. Even short sessions of 10 minutes can be effective. Take medicine You may take medicines to help you quit smoking. Some medicines require a prescription. You can also purchase dpnm-pvl-ladwfcl medicines. Medicines may have nicotine in them to replace the nicotine in cigarettes. Medicines may: ??? Help to stop cravings. ??? Help to relieve withdrawal symptoms. Your health care provider may recommend: ??? Nicotine patches, gum, or lozenges. ??? Nicotine inhalers or sprays. ??? Non-nicotine medicine that you take by mouth. Find resources Find resources and support systems that can help you quit smoking and remain smoke-free after you quit. These resources are most helpful when you use them often. They include: ??? Online chats with a counselor. ??? Telephone quitlines. ??? Printed self-help materials. ??? Support groups or group counseling. ??? Text messaging programs. ??? Mobile phone apps or applications. Use apps that can help you stick to your quit plan by providing reminders, tips, and encouragement. Examples of free services include Quit Guide from the CDC and smokefree.gov What can I do to make it easier to quit? Reach out to your family and friends for support and encouragement. Call telephone quitlines, such as 9-903-CFVO-NOW, reach out to support groups, or work with a counselor for support. ??? Ask people who smoke to avoid smoking around you. ??? Avoid places that trigger you to smoke, such as bars, parties, or smoke-break areas at work. ??? Spend time with people who do not smoke. ??? Lessen the stress in your life. Stress can be a smoking trigger for some people. To lessen stress, try: ? Exercising regularly. ? Doing deep-breathing exercises. ? Doing yoga. ? Meditating. What benefits will I see if I quit smoking? Over time, you should start to see positive results, such as: ??? Improved sense of smell and taste. ??? Decreased coughing and sore throat. ??? Slower heart rate. ??? Lower blood pressure. ??? Clearer and healthier skin. ??? The ability to breathe more easily. ??? Fewer sick days. Summary ??? Quitting smoking can be very challenging. Do not get discouraged if you are not successful the first time. Some people need to make many attempts to quit before they achieve long-term success. ??? When you decide to quit smoking, create a plan to help you succeed. ??? Quit smoking right away, not s (more content not included)... [facility] 05-02-2024 Hospital Discharg e instructions Patient Education 05/02/2024 10:41:57 Asthma Action Plan, Adult Asthma Action Plan, Adult An asthma action plan helps you understand how to manage your asthma and what to do when you have an asthma attack. The action plan is a color-coded plan that lists the symptoms that indicate whether or not your condition is under control and what actions to take. If you have symptoms in the green zone, you are doing well. If you have symptoms in the yellow zone, you are having problems. If you have symptoms in the red zone, you need medical care right away. Follow the plan that you and your health care provider develop. Review your plan with your health care provider at each visit. What triggers your asthma? Knowing the things that can trigger an asthma attack or make your asthma symptoms worse is very important. Talk to your health care provider about your asthma triggers and how to avoid them. Record your known asthma triggers here: What is your personal best peak flow reading? If you use a peak flow meter, determine your personal best reading. Record it here: Green zone This zone means that your asthma is under control. You may not have any symptoms while you are in the green zone. This means that you: Have no coughing or wheezing, even while you are working or playing. Sleep through the night. Are breathing well. Have a peak flow reading that is above (80% of your personal best or greater). If you are in the green zone, continue to manage your asthma as directed. Take these medicines every day: ?Controller medicine and dosage: ?Controller medicine and dosage: ?Controller medicine and dosage: ?Controller medicine and dosage: Before exercise, use this reliever or rescue medicine: Call your health care provider if you are using a reliever or rescue medicine more than 2 3 times a week. Yellow zone Symptoms in this zone mean that your condition may be getting worse. You may have symptoms that interfere with exercise, are noticeably worse after exposure to triggers, or are worse at the first sign of a cold (upper respiratory infection). These may include: Waking from sleep. Coughing, especially at night or first thing in the morning. Mild wheezing. Chest tightness. A peak flow reading that is to (50 79% of your personal best). If you have any of these symptoms: Add the following medicine to the ones that you use daily: ?Reliever or rescue medicine and dosage: ?Additional medicine and dosage: Call your health care provider if: You remain in the yellow zone for hours. You are using a reliever or rescue medicine more than 2 3 times a week. Red zone Symptoms in this zone mean that you should get medical help right away. You will likely feel distressed and have symptoms at rest that restrict your activity. You are in the red zone if: You are breathing hard and quickly. Your nose opens wide, your ribs show, and your neck muscles become visible when you breathe in. Your lips, fingers, or toes are a bluish color. You have trouble speaking in full sentences. Your peak flow reading is less than (less than 50% of your personal best). Your symptoms do not improve within 15 20 minutes after you use your reliever or rescue medicine (bronchodilator). If you have any of these symptoms: These symptoms represent a serious problem that is an emergency. Do not wait to see if the symptoms will go away. Get medical help right away. Call your local emergency services (911 in the [place] Do not drive yourself to the hospital. Use your reliever or rescue medicine. ?Start a nebulizer treatment or take 2 4 puffs from a metered-dose inhaler with a spacer. ?Repeat this action every 15 20 minutes until help arrives. Where to find more information You can find more information about asthma from: Centers for Disease Control and Prevention: www.cdc.gov [place] [employer]: www.lung.org This information is not intended to replace advice given to you by your health care provider. Make sure you discuss any questions you have with your health care provider. Document Revised: 10/02/2021 Document Reviewed: 10/02/2021 [employer] Patient Education 2023 [employer] Follow Up Care 01/21/2024 10:09:19 With:BHARAT MOREJON FAAFP, DIANNE Danielle, PED Address: [address], [place] [address]- When:Within 3 Month(s) [facility] 05-02-2024 Note Patient Education Immunology Asthma Action Plan, Adult An asthma action plan helps you understand how to manage your asthma and what to do when you have an asthma attack. The action plan is a color-coded plan that lists the symptoms that indicate whether or not your condition is under control and what actions to take. ? If you have symptoms in the green zone, you are doing well. ? If you have symptoms in the yellow zone, you are having problems. ? If you have symptoms in the red zone, you need medical care right away. Follow the plan that you and your health care provider develop. Review your plan with your health care provider at each visit. What triggers your asthma? Knowing the things that can trigger an asthma attack or make your asthma symptoms worse is very important. Talk to your health care provider about your asthma triggers and how to avoid them. Record your known asthma triggers here: What is your personal best peak flow reading? If you use a peak flow meter, determine your personal best reading. Record it here: Green zone This zone means that your asthma is under control. You may not have any symptoms while you are in the green zone. This means that you: ? Have no coughing or wheezing, even while you are working or playing. ? Sleep through the night. ? Are breathing well. ? Have a peak flow reading that is above (80% of your personal best or greater). If you are in the green zone, continue to manage your asthma as directed. ? Take these medicines every day: ? Controller medicine and dosage: ? Controller medicine and dosage: ? Controller medicine and dosage: ? Controller medicine and dosage: ? Before exercise, use this reliever or rescue medicine: Call your health care provider if you are using a reliever or rescue medicine more than 2?3 times a week. Yellow zone Symptoms in this zone mean that your condition may be getting worse. You may have symptoms that interfere with exercise, are noticeably worse after exposure to triggers, or are worse at the first sign of a cold (upper respiratory infection). These may include: ? Waking from sleep. ? Coughing, especially at night or first thing in the morning. ? Mild wheezing. ? Chest tightness. ? A peak flow reading that is to (50?79% of your personal best). If you have any of these symptoms: ? Add the following medicine to the ones that you use daily: ? Reliever or rescue medicine and dosage: ? Additional medicine and dosage: Call your health care provider if: ? You remain in the yellow zone for hours. ? You are using a reliever or rescue medicine more than 2?3 times a week. Red zone Symptoms in this zone mean that you should get medical help right away. You will likely feel distressed and have symptoms at rest that restrict your activity. You are in the red zone if: ? You are breathing hard and quickly. ? Your nose opens wide, your ribs show, and your neck muscles become visible when you breathe in. ? Your lips, fingers, or toes are a bluish color. ? You have trouble speaking in full sentences. ? Your peak flow reading is less than (less than 50% of your personal best). ? Your symptoms do not improve within 15?20 minutes after you use your reliever or rescue medicine (bronchodilator). If you have any of these symptoms: ? These symptoms represent a serious problem that is an emergency. Do not wait to see if the symptoms will go away. Get medical help right away. Call your local emergency services (911 in the [place] Do not drive yourself to the hospital. ? Use your reliever or rescue medicine. ? Start a nebulizer treatment or take 2?4 puffs from a metered-dose inhaler with a spacer. ? Repeat this action every 15?20 minutes until help arrives. Where to find more information You can find more information about asthma from: ? Centers for Disease Control and Prevention: www.cdc.gov ? [place] [employer]: www.lung.org This information is not intended to replace advice given to you by your health care provider. Make sure you discuss any questions you have with your health care provider. Document Revised: 10/02/2021 Document Reviewed: 10/02/2021 [employer] Patient Education ? 2023 [employer]. [facility] 01-21-2024 Hospital Discharg e instructions Patient Education 01/21/2024 09:24:55 Asthma Action Plan, Adult Asthma Action Plan, Adult An asthma action plan helps you understand how to manage your asthma and what to do when you have an asthma attack. The action plan is a color-coded plan that lists the symptoms that indicate whether or not your condition is under control and what actions to take. If you have symptoms in the green zone, you are doing well. If you have symptoms in the yellow zone, you are having problems. If you have symptoms in the red zone, you need medical care right away. Follow the plan that you and your health care provider develop. Review your plan with your health care provider at each visit. What triggers your asthma? Knowing the things that can trigger an asthma attack or make your asthma symptoms worse is very important. Talk to your health care provider about your asthma triggers and how to avoid them. Record your known asthma triggers here: What is your personal best peak flow reading? If you use a peak flow meter, determine your personal best reading. Record it here: Green zone This zone means that your asthma is under control. You may not have any symptoms while you are in the green zone. This means that you: Have no coughing or wheezing, even while you are working or playing. Sleep through the night. Are breathing well. Have a peak flow reading that is above (80% of your personal best or greater). If you are in the green zone, continue to manage your asthma as directed. Take these medicines every day: ?Controller medicine and dosage: ?Controller medicine and dosage: ?Controller medicine and dosage: ?Controller medicine and dosage: Before exercise, use this reliever or rescue medicine: Call your health care provider if you are using a reliever or rescue medicine more than 2 3 times a week. Yellow zone Symptoms in this zone mean that your condition may be getting worse. You may have symptoms that interfere with exercise, are noticeably worse after exposure to triggers, or are worse at the first sign of a cold (upper respiratory infection). These may include: Waking from sleep. Coughing, especially at night or first thing in the morning. Mild wheezing. Chest tightness. A peak flow reading that is to (50 79% of your personal best). If you have any of these symptoms: Add the following medicine to the ones that you use daily: ?Reliever or rescue medicine and dosage: ?Additional medicine and dosage: Call your health care provider if: You remain in the yellow zone for hours. You are using a reliever or rescue medicine more than 2 3 times a week. Red zone Symptoms in this zone mean that you should get medical help right away. You will likely feel distressed and have symptoms at rest that restrict your activity. You are in the red zone if: You are breathing hard and quickly. Your nose opens wide, your ribs show, and your neck muscles become visible when you breathe in. Your lips, fingers, or toes are a bluish color. You have trouble speaking in full sentences. Your peak flow reading is less than (less than 50% of your personal best). Your symptoms do not improve within 15 20 minutes after you use your reliever or rescue medicine (bronchodilator). If you have any of these symptoms: These symptoms represent a serious problem that is an emergency. Do not wait to see if the symptoms will go away. Get medical help right away. Call your local emergency services (911 in the [place] Do not drive yourself to the hospital. Use your reliever or rescue medicine. ?Start a nebulizer treatment or take 2 4 puffs from a metered-dose inhaler with a spacer. ?Repeat this action every 15 20 minutes until help arrives. Where to find more information You can find more information about asthma from: Centers for Disease Control and Prevention: www.cdc.gov [employer] [employer]: www.lung.org This information is not intended to replace advice given to you by your health care provider. Make sure you discuss any questions you have with your health care provider. Document Revised: 10/02/2021 Document Reviewed: 10/02/2021 [employer] Patient Education 2022 [employer]. Follow Up Care 10/14/2023 09:33:52 With:BHARAT MOREJON FAAFP, DIANNE Danielle, PED Address: [address] [place] [address] [facility] [place] [address] When:Within 3 Month(s) [facility] 11-26-2023 Hospital Discharg e instructions Patient Education 11/26/2023 08:54:07 Chronic Migraine Headache, [id number]-ln-[id number] Chronic Migraine Headache A migraine headache is throbbing pain that is usually on one side of the head. Migraines that keep coming back are called recurring migraines. A migraine is called a chronic migraine if it happens at least 15 days in a month for more than 3 months. Talk with your doctor about what things may bring on (trigger) your migraines. What are the causes? The exact cause of this condition is not known. A migraine may be caused when nerves in the brain become irritated and release chemicals that cause irritation and swelling (inflammation) of blood vessels. The irritation and swelling of the blood vessels causes pain. Migraines may be brought on or caused by: Smoking. Foods and drinks, such as: ?Cheese. ?Chocolate. ?Alcohol. ?Caffeine. Certain substances in some foods or drinks. Some medicines. Other things that may bring on a migraine include: Periods, for women. Stress. Not enough sleep or too much sleep. Feeling very tired. Bright lights or loud noises. Smells Weather changes and being at high altitude. What increases the risk? The following factors may make you more likely to have chronic migraine: Having migraines or family members who have them. Being very sad (depressed) or feeling worried or nervous (anxious). Taking a lot of pain medicine. Having problems sleeping. Having heart disease, diabetes, or being very overweight (obese). What are the signs or symptoms? Symptoms of this condition include: Pain that feels like it throbs. Pain that is usually only on one side of the head. In some cases, the pain may be on both sides of the head or around the head or neck. Very bad pain that keeps you from doing daily activities. Pain that gets worse with activity. Feeling like you may vomit (feeling nauseous) or vomiting. Pain when you are around bright lights, loud noises, or activity. Being sensitive to bright lights, loud noises, or smells. Feeling dizzy. How is this treated? This condition is treated with: Medicines. These help to: ?Lessen pain and the feeling like you may vomit. ?Prevent migraines. Changes to your diet or sleep. Therapy. This might include: ?Relaxation training. ?Biofeedback. This is a treatment that teaches you to relax, use your brain to lower your heart rate, and control your breathing. ?Cognitive behavioral therapy (CBT). This therapy helps you set goals and follow up on the changes that you make. Acupuncture. Using a device that provides electrical stimulation to your nerves, which can help take away pain. Surgery, if the other treatments do not work. Follow these instructions at home: Medicines Take lgzm-zpi-mzzlgut and prescription medicines only as told by your doctor. Ask your doctor if the medicine prescribed to you requires you to avoid driving or using machinery. Lifestyle Do not use any products that contain nicotine or tobacco, such as cigarettes, e-cigarettes, and chewing tobacco. If you need help quitting, ask your doctor. Do not drink alcohol. Get 7 9 hours of sleep each night. Lower the stress in your life. Ask your doctor about ways to do this. Stay at a healthy weight. Talk with your doctor if you need help losing weight. Get regular exercise. General instructions Keep a journal to find out if certain things bring on migraines. For example, write down: ?What you eat and drink. ?How much sleep you get. ?Any change to your diet or medicines. Lie down in a dark, quiet room when you have a migraine. Try placing a cool towel over your head when you have a migraine. Keep lights dim if bright lights bother you or make your migraines worse. Keep all follow-up visits as told by your doctor. This is important. Where to find more information Coalition for Headache and Migraine Patients (CHAMP): headachemigraine.org [place] Mig[employer] Foundation: americanmigrainefoundation.org National Headache Foundation: headaches.org Contact a doctor if: Medicine does not help your migraine. Your pain keeps coming back. Get help right away if: Your migraine becomes really bad and medicine does not help. You have a stiff neck and fever. You have trouble seeing. Your muscles are weak or you lose control of them. You lose your balance or have trouble walking. You feel like you will faint or you faint. You start having sudden, very bad headaches. You have a seizure. Summary A migraine headache is very bad, throbbing pain that is usually on one side of the head. A chronic migraine is a migraine that happens 15 days in a month for more than 3 months. Talk with your doctor about what things may bring on your migraines. Lie down in a dark, quiet room when you have a migraine. Keep a journal. This can help you find out if certain things make you have migraines. This information is not intended to replace advice given to you by your health care provider. Make sure you discuss any questions you have with your health care provider. Document Revised: 09/25/2020 Document Reviewed: 09/25/2020 Elsevier Patient Education 2022 [employer]. Follow Up Care 11/23/2023 11:06:36 With:BHARAT MOREJON FAAFP, Valdemar Garcia, DIANNE, PED Address: [address], [place] [address]- When:Within 3 Month(s) [facility] 10-14-2023 Hospital Discharg e instructions Patient Education 10/14/2023 09:25:21 Steps to Quit Smoking Steps to Quit Smoking Smoking tobacco is the leading cause of preventable . It can affect almost every organ in the body. Smoking puts you and those around you at risk for developing many serious chronic diseases. Quitting smoking can be very challenging. Do not get discouraged if you are not successful the first time. Some people need to make many attempts to quit before they achieve long-term success. Do your best to stick to your quit plan, and talk with your health care provider if you have any questions or concerns. How do I get ready to quit? When you decide to quit smoking, create a plan to help you succeed. Before you quit: Pick a date to quit. Set a date within the next 2 weeks to give you time to prepare. Write down the reasons why you are quitting. Keep this list in places where you will see it often. Tell your family, friends, and co-workers that you are quitting. Support from people you are close to can make quitting easier. Talk with your health care provider about your options for quitting smoking. Find out what treatment options are covered by your health insurance. Identify people, places, things, and activities that make you want to smoke (triggers). Avoid them. What first steps can I take to quit smoking? Throw away all cigarettes at home, at work, and in your car. Throw away smoking accessories, such as ashtrays and lighters. Clean your car. Make sure to empty the ashtray. Clean your home, including curtains and carpets. What strategies can I use to quit smoking? Talk with your health care provider about combining strategies, such as taking medicines while you are also receiving in-person counseling. Using these two strategies together makes you more likely to succeed in quitting than if you used either strategy on its own. If you are or , talk with your health care provider about finding counseling or other support strategies to quit smoking. Do not take medicine to help you quit smoking unless your health care provider tells you to. Quit right away Quit smoking completely, instead of gradually reducing how much you smoke over a period of time. Stopping smoking right away may be more successful than gradually quitting. Attend in-person counseling to help you build problem-solving skills. You are more likely to succeed in quitting if you attend counseling sessions regularly. Even short sessions of 10 minutes can be effective. Take medicine You may take medicines to help you quit smoking. Some medicines require a prescription. You can also purchase piaa-rhp-bhdzbfw medicines. Medicines may have nicotine in them to replace the nicotine in cigarettes. Medicines may: Help to stop cravings. Help to relieve withdrawal symptoms. Your health care provider may recommend: Nicotine patches, gum, or lozenges. Nicotine inhalers or sprays. Non-nicotine medicine that you take by mouth. Find resources Find resources and support systems that can help you quit smoking and remain smoke-free after you quit. These resources are most helpful when you use them often. They include: Online chats with a counselor. Telephone quitlines. Printed self-help materials. Support groups or group counseling. Text messaging programs. Mobile phone apps or applications. Use apps that can help you stick to your quit plan by providing reminders, tips, and encouragement. Examples of free services include Quit Guide from the CDC and smokefree.gov What can I do to make it easier to quit? Reach out to your family and friends for support and encouragement. Call telephone quitlines, such as 1-539-MXFQ-NOW, reach out to support groups, or work with a counselor for support. Ask people who smoke to avoid smoking around you. Avoid places that trigger you to smoke, such as bars, parties, or smoke-break areas at work. Spend time with people who do not smoke. Lessen the stress in your life. Stress can be a smoking trigger for some people. To lessen stress, try: ?Exercising regularly. ?Doing deep-breathing exercises. ?Doing yoga. ?Meditating. What benefits will I see if I quit smoking? Over time, you should start to see positive results, such as: Improved sense of smell and taste. Decreased coughing and sore throat. Slower heart rate. Lower blood pressure. Clearer and healthier skin. The ability to breathe more easily. Fewer sick days. Summary Quitting smoking can be very challenging. Do not get discouraged if you are not successful the first time. Some people need to make many attempts to quit before they achieve long-term success. When you decide to quit smoking, create a plan to help you succeed. Quit smoking right away, not slowly over a period of time. Find resources and support systems that can help you quit smoking and remain smoke-free after you quit. This information is not intended to replace advice given to you by your health care provider. Make sure you discuss any questions you have with your health care provider. Document Revised: 07/31/2022 Document Reviewed: 07/31/2022 [employer] Patient Education 2022 [employer]. Follow Up Care 07/09/2023 14:09:15 With:BHARAT MOREJON FAAFP, DIANNE Danielle, PED Address: [place] [address]- When:Within 3 Month(s) [facility] 07-09-2023 Hospital Discharg e instructions Patient Education 07/09/2023 13:46:16 Attention Deficit Hyperactivity Disorder, Adult Attention Deficit Hyperactivity Disorder, Adult Attention deficit hyperactivity disorder (ADHD) is a mental health disorder that starts during childhood (neurodevelopmental disorder). For many people with ADHD, the disorder continues into the adult years. Treatment can help you manage your symptoms. What are the causes? The exact cause of ADHD is not known. Most experts believe genetics and environmental factors contribute to ADHD. What increases the risk? The following factors may make you more likely to develop this condition: Having a family history of ADHD. Being male. Being born to a mother who smoked or drank alcohol during . Being exposed to lead or other toxins in the womb or early in life. Being born before 37 weeks of (prematurely) or at a low weight. Having experienced a brain injury. What are the signs or symptoms? Symptoms of this condition depend on the type of ADHD. The two main types are inattentive and hyperactive-impulsive. Some people may have symptoms of both types. Symptoms of the inattentive type include: Difficulty paying attention. Making careless mistakes. Not following instructions. Being disorganized. Avoiding tasks that require time and attention. Losing and forgetting things. Being easily distracted. Symptoms of the hyperactive-impulsive type include: Restlessness. Talking too much. Interrupting. Difficulty with: ?Sitting still. ?Feeling motivated. ?Relaxing. ?Waiting in line or waiting for a turn. In adults, this condition may lead to certain problems, such as: Keeping jobs. Performing tasks at work. Having stable relationships. Being on time or keeping to a schedule. How is this diagnosed? This condition is diagnosed based on your current symptoms and your history of symptoms. The diagnosis can be made by a health care provider such as a primary care provider or a mental health director career. Your health care provider may use a symptom checklist or a behavior rating scale to evaluate your symptoms. He or she may also want to talk with people who have observed your behaviors throughout your life. How is this treated? This condition can be treated with medicines and behavior therapy. Medicines may be the best option to reduce impulsive behaviors and improve attention. Your health care provider may recommend: Stimulant medicines. These are the most common medicines used for adult ADHD. They affect certain chemicals in the brain (neurotransmitters) and improve your ability to control your symptoms. A non-stimulant medicine for adult ADHD (atomoxetine). This medicine increases a neurotransmitter called norepinephrine. It may take weeks to months to see effects from this medicine. Counseling and behavioral management are also important for treating ADHD. Counseling is often used along with medicine. Your health care provider may suggest: Cognitive behavioral therapy (CBT). This type of therapy teaches you to replace negative thoughts and actions with positive thoughts and actions. When used as part of ADHD treatment, this therapy may also include: ?Coping strategies for organization, time management, impulse control, and stress reduction. ?Mindfulness and meditation training. Behavioral management. You may work with a personal health coach who is specially trained to help people with ADHD manage and organize activities and function more effectively. Follow these instructions at home: Medicines Take xghi-qtz-bmhnqtt and prescription medicines only as told by your health care provider. Talk with your health care provider about the possible side effects of your medicines and how to manage them. Lifestyle Do not use drugs. Do not drink alcohol if: ?Your health care provider tells you not to drink. ?You are , may be , or are planning to become . If you drink alcohol: ?Limit how much you use to: ?0 1 drink a day for women. ?0 2 drinks a day for men. ?Be aware of how much alcohol is in your drink. In the [place] one drink equals one 12 oz bottle of beer (355 mL), one 5 oz glass of wine (148 mL), or one 1 oz glass of hard liquor (44 mL). Get enough sleep. Eat a healthy diet. Exercise regularly. Exercise can help to reduce stress and anxiety. General instructions Learn as much as you can about adult ADHD, and work closely with your health care providers to find the treatments that work best for you. Follow the same schedule each day. Use reminder devices like notes, calendars, and phone apps to stay on time and organized. Keep all follow-up visits as told by your health care provider and therapist. This is important. Where to find more information A health care provider may be able to recommend resources that are available online or over the phone. You could start with: Attention Deficit Disorder Association (ADDA): www.add.org National [place] of Mental Health (NIMH): www.nimh.nih.gov Contact a health care provider if: Your symptoms continue to cause problems. You have side effects from your medicine, such as: ?Repeated muscle twitches, coughing, or speech outbursts. ?Sleep problems. ?Loss of appetite. ?Dizziness. ?Unusually fast heartbeat. ?Stomach pains. ?Headaches. You are struggling with anxiety, depression, or substance abuse. Get help right away if you: Have a severe reaction to a medicine. If you ever feel like you may hurt yourself or others, or have thoughts about taking your own life, get help right away. You can go to the nearest emergency department or call: Your local emergency services (911 in the [place] A suicide crisis helpline, such as the National Suicide Prevention Lifeline at or 986 in the [place] This is open 24 hours a day. Summary ADHD is a mental health disorder that starts during childhood (neurodevelopmental disorder) and often continues into the adult years. The exact cause of ADHD is not known. Most experts believe genetics and environmental factors contribute to ADHD. There is no cure for ADHD, but treatment with medicine, cognitive behavioral therapy, or behavioral management can help you manage your condition. This information is not intended to replace advice given to you by your health care provider. Make sure you discuss any questions you have with your health care provider. Document Revised: 03/04/2022 Document Reviewed: 01/01/2020 [employer] Patient Education 2022 [employer] Follow Up Care 04/15/2023 12:02:43 With:BHARAT MOREJON FAAFP, DIANNE Danielle, PED Address: [address] [place] [address] [facility] [place] [address]- When:Within 3 Month(s) [facility] 04-15-2023 Hospital Discharg e instructions Patient Education 04/15/2023 16:57:59 Post-Concussion Syndrome Post-Concussion Syndrome A concussion is a brain injury from a direct hit to the head or body. This hit causes the brain to shake quickly back and forth inside the skull. This can damage brain cells and cause chemical changes in the brain. Concussions are usually not life-threatening but can cause serious symptoms. Post-concussion syndrome is when symptoms that occur after a concussion last longer than normal. These symptoms can last from weeks to months. What are the causes? The cause of this condition is not known. It can happen whether your head injury was mild or severe. What increases the risk? You are more likely to develop this condition if: You are female. You are a child, teen, or young adult. You have had a past head injury. You have a history of headaches. You have depression or anxiety. You have loss of consciousness or cannot remember the event (have amnesia of the event). You have multiple symptoms or severe symptoms at the time of your concussion. What are the signs or symptoms? Symptoms of this condition include: Physical symptoms. You may have: ?Headaches. ?Tiredness. ?Dizziness and weakness. ?Blurry vision and sensitivity to light. ?Hearing difficulties. ?Problems with balance. Mental and emotional symptoms. You may have: ?Memory problems and trouble concentrating. ?Difficulty sleeping or staying asleep. ?Feelings of irritability. ?Anxiety or depression. ?Difficulty learning new things. How is this diagnosed? This condition may be diagnosed based on: Your symptoms. A description of your injury. Your medical history. Testing your strength, balance, and nerve function (neurological examination). Your health care provider may order other tests, including brain imaging such as a CT scan or an MRI, and memory testing (neuropsychological testing). How is this treated? Treatment for this condition may depend on your symptoms. Symptoms usually go away on their own over time. Treatments may include: Medicines for headaches, anxiety, depression, and trouble sleeping (insomnia). Resting your brain and body for a few days after your injury. Rehabilitation therapy, such as: ?Physical or occupational therapy. This may include exercises to help with balance and dizziness. ?Mental health counseling. A form of talk therapy called cognitive behavioral therapy (CBT) can be especially helpful. This therapy helps you set goals and follow up on the changes that you make. ?Speech therapy. ?Vision therapy. A brain and oracle specialist can recommend treatments for vision problems. Follow these instructions at home: Medicines Take nsad-oni-zesvwsj and prescription medicines only as told by your health care provider. Avoid opioid prescription pain medicines when recovering from a concussion. Activity Limit your mental activities for the first few days after your injury. This may include not doing the following: ?Homework or job-related work. ?Complex thinking. ?Watching TV, and using a computer or phone. ?Playing memory games and puzzles. Gradually return to your normal activity level. If a certain activity brings on your symptoms, stop or slow down until you can do the activity without it triggering your symptoms. Limit physical activity, such as exercise or sports, for the first few days after a concussion. Gradually return to normal activity as told by your health care provider. Rest. Rest helps your brain heal. Make sure you: ?Get plenty of sleep at night. Most adults should get at least 7 9 hours of sleep each night. ?Rest during the day. Take naps or rest breaks when you feel tired. Do not do high-risk activities that could cause a second concussion, such as riding a bike or playing sports. Having another concussion before the first one has healed can be dangerous. General instructions Do not drink alcohol until your health care provider says that you can. Keep track of the frequency and the severity of your symptoms. Give this information to your health care provider. Keep all follow-up visits as directed by your health care provider. This is important. This includes visits with specialists. Contact a health care provider if: Your symptoms do not improve. You have another injury. Get help right away if you: Have a severe or worsening headache. Are confused. Have trouble staying awake. Faint. Vomit. Have weakness or numbness in any part of your body. Have a seizure. Have trouble speaking. Summary Post-concussion syndrome is when symptoms that occur after a concussion last longer than normal. Symptoms usually go away on their own over time. Depending on your symptoms, you may need treatment, such as medicines or rehabilitation therapy. Rest your brain and body for a few days after your injury. Gradually return to normal activities as told by your health care provider. Get plenty of sleep, and avoid alcohol and opioid pain medicines while recovering from a concussion. This information is not intended to replace advice given to you by your health care provider. Make sure you discuss any questions you have with your health care provider. Document Revised: 10/23/2021 Document Reviewed: 10/23/2021 [employer] Patient Education 2022 [employer]. Follow Up Care 04/15/2023 12:09:23 With:Valdemar MCCLENDON Address: [address], [place] [address] Business (1) When:04/18/2023 16:57:47 Comments:Call the office of your primary care doctor to arrange for follow-up within the above-stated timeframe. Follow-up with your primary care doctor about this ED visit. You should review your labs, imaging, and diagnoses from this ED visit with your primary care physician. If you were prescribed medications you should discuss possible side-effects and drug interactions with your pharmacist. Call 911 or go to the nearest Emergency Department if you develop any new or worsening symptoms. [facility] 04-15-2023 Hospital Discharg e instructions Patient Education 04/15/2023 12:15:41 Head Injury, Adult, Yyli-dl-Iqaa Head Injury, Adult There are many types of head injuries. They can be as minor as a small bump. Some head injuries can be worse. Worse injuries include: A strong hit to the head that shakes the brain back and forth, causing damage (concussion). A bruise (contusion) of the brain. This means there is bleeding in the brain that can cause swelling. A cracked skull (skull fracture). Bleeding in the brain that gathers, gets thick (makes a clot), and forms a bump (hematoma). Most problems from a head injury come in the first 24 hours. However, you may still have side effects up to 7 10 days after your injury. It is important to watch your condition for any changes. You may need to be watched in the emergency department or urgent care, or you may need to stay in the hospital. What are the causes? There are many possible causes of a head injury. A serious head injury may be caused by: A car accident. Bicycle or motorcycle accidents. Sports injuries. Falls. Being hit by an object. What are the signs or symptoms? Symptoms of a head injury include a bruise, bump, or bleeding where the injury happened. Other physical symptoms may include: Headache. Feeling like you may vomit (nauseous) or vomiting. Dizziness. Blurred or double vision. Being uncomfortable around bright lights or loud noises. Shaking movements that you cannot control (seizures). Feeling tired. Trouble being woken up. Fainting or loss of consciousness. Mental or emotional symptoms may include: Feeling grumpy or cranky. Confusion and memory problems. Having trouble paying attention or concentrating. Changes in eating or sleeping habits. Feeling worried or nervous (anxious). Feeling sad (depressed). How is this treated? Treatment for this condition depends on how severe the injury is and the type of injury you have. The main goal is to prevent problems and to allow the brain time to heal. Mild head injury If you have a mild head injury, you may be sent home, and treatment may include: Being watched. A responsible adult should stay with you for 24 hours after your injury and check on you often. Physical rest. Brain rest. Pain medicines. Severe head injury If you have a severe head injury, treatment may include: Being watched closely. This includes staying in the hospital. Medicines to: ?Help with pain. ?Prevent seizures. ?Help with brain swelling. Protecting your airway and using a machine that helps you breathe (ventilator). Treatments to watch for and manage swelling inside the brain. Brain surgery. This may be needed to: ?Remove a collection of blood or blood clots. ?Stop the bleeding. ?Remove a part of the skull. This allows room for the brain to swell. Follow these instructions at home: Activity Rest.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 was Syncope and collapse. A diagnosis of SDH(subdural hematoma) (HCC) was also pertinent to this visit. Past Medical History: has a past medical history of Depression. Past Surgical History: has no past surgical history on file. Assessment Body Structures, Functions, Activity Limitations Requiring Skilled Therapeutic Intervention: Decreased functional mobility ;Decreased endurance;Vestibular Impairment;Decreased balance;Decreased strength Assessment: Pt amb 150' Toña SPC. Pt primarily SBA throughout ambulation, w/ exception of 2 LOB d/thead turns that provocked dizziness.Pt did not note dizziness other than direction head turns. Pt reports dizziness recently improved after taking amoxicillan. Pt would benefit from continued acute PT to address deficits. Therapy Prognosis: Good Decision Making: Medium Complexity Requires PT Follow-Up: Yes Activity Tolerance Activity Tolerance: Patient tolerated treatment well Activity Tolerance Comments: Orthostatics collected prior to ambulation: Supine - 126/66 mmHg, HR: 85. Sitting - 125/77 mmHg, HR: 83. Standing: - 121/67 mmHg, HR: 100. Plan Physcial Therapy Plan General Plan: (3-5x/wk) Current Treatment Recommendations: Strengthening, Balance training, Functional mobility training, Transfer training, Endurance training, Gait training, Stair training, Patient/Caregiver education & training, Neuromuscular re- education, Safety education & training, Home exercise program, Vestibular rehab, Therapeutic activities, Equipment evaluation, education, & procurement Safety Devices Type of Devices: All fall risk precautions in place, Patient at risk for falls, Gait belt, Nurse notified, Left in bed, Call light within reach Restraints Restraints Initially in Place: No Restrictions Restrictions/Precautions Restrictions/Precautions: General Precautions, Up as Tolerated Required Braces or Orthoses?: No Subjective General Chart Reviewed: Yes Patient assessed for rehabilitation services?: Yes Response To Previous Treatment: Not applicable Family / Caregiver Present: No Follows Commands: Within Functional Limits General Comment Comments: RN and pt agreeable to PT. pt alert in bed upon arrival. Subjective Subjective: Pt reports 7/10 pain in head. Pt is wearing sunglasses to reduce pain. Denies n/t. Social/Functional History Social/Functional History Lives With: Spouse, Family ((5 children, oldest age 17 yo.)) Type of Home: House Home Layout: Two level, Bed/Bath upstairs Home Access: Level entry Bathroom Shower/Tub: Tub/Shower unit Bathroom Toilet: Standard Bathroom Equipment: None Bathroom Accessibility: Accessible Home Equipment: Cane (carries cane in case of dizzy spell, otherwise not used in ambulation) Has the patient had two or more falls in the past year or any fall with injury in the past year?: Yes (Dizziness) Receives Help From: Family ADL Assistance: Independent Homemaking Assistance: Independent Homemaking Responsibilities: Yes Ambulation Assistance: Independent Transfer Assistance: Independent Active Drawer In: Yes Mode of Transportation: SUV 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 Vision/Hearing Vision Vision: Impaired Vision Exceptions: Wears glasses for distance Hearing Hearing: Exceptions to WFL Hearing Exceptions: (Impaired hearing on L ear) Cognition Orientation Overall Orientation Status: Within Functional Limits Cognition Overall Cognitive Status: WFL Objective AROM RLE (degrees) RLE AROM: WFL AROM LLE (degrees) LLE AROM : WFL AROM RUE (degrees) RUE AROM : WFL AROM LUE (degrees) LUE AROM : WFL Strength RLE Strength RLE: WFL Strength LLE Strength LLE: WFL Strength RUE Strength RUE: WFL Comment: Antigravity control observed Strength LUE Strength LUE: WFL Comment: Antigravity control observed Strength Other Other: Able to stand, ambulate w/out assistance. Functional strength of BLE. Bed mobility Supine to Sit: Independent Sit to Supine: Independent Transfers Sit to Stand: Stand by assistance Stand to Sit: Stand by assistance Comment: Performed w/out AD Ambulation Surface: Level tile Device: Single point cane Assistance: Minimal assistance Quality of Gait: Pt amb w/ adequate gait speed, normal step length STELLA, 2 LOB incidents when turning head up vertically and L horizantally - these head turning positions induced dizziness. LOB incidents required Toña to prevent LOB, otherwise SBA throughout. Distance: 150' More Ambulation?: No Balance Posture: Good Sitting - Static: Good Sitting - Dynamic: Good Standing - Static: Fair;+ Standing - Dynamic: Fair Comments: Standing balance assessed w/out AD AM-PAC Score AM-PAC Inpatient Mobility Raw Score : 22 (03/10/231337) AM-PAC Inpatient T-Scale Score : 53.28 (03/10/231337) Mobility Inpatient CMS 0-100% Score: 20.91 (03/10/231337) Mobility Inpatient [facility] G-Code Modifier : CJ (03/10/231337) Goals Short Term Goals Time Frame for Short Term Goals: 6 visits Short Term Goal 1: Pt will be Iesha in transfers Short Term Goal 2: Pt will amb 300' IND Short Term Goal 3: Pt will negotiate 1 flight of stairs CGA no rail use. Education Patient Education Education Given To: Patient Education Provided: Role of Therapy;Plan of Care Education Method: Demonstration;Verbal Barriers to Learning: None Education Outcome: Verbalized understanding;Demonstrated understanding Therapy Time Individual Concurrent Group Co-treatment Time In 1141 Time Out 1209 Minutes 28 Timed Code Treatment Minutes: 23 Minutes Delmer Muhammad PT * Felisa Segura MD - 03/10/2023 6:28 AM EDT Images from the original note were not included. PROGRESS NOTE PATIENT NAME: Felisa Jones DATE: 03/10/2023 PRIMARY CARE PHYSICIAN: No primary care provider on file. HD: # 0 ASSESSMENT Patient Active Problem List Diagnosis SDH (subdural hematoma) (HCC) Fall Syncope and collapse Hygroma MEDICAL DECISION MAKING AND PLAN 1. Vertigo vs. near syncope - Labs WNL - CTH stable - No chest pain or SOB - Orthostatic hypotension in ED - SBP 105 -> 88; HR 81 -> 124. 1L bolus overnight. Recheck today. - Cardiology consulted, f/u recs. 2. TBI - SDH and skull fx stable on CTH - No NS intervetion - PT/OT - MMPT - R zygomatic arch fracture mentioned in 03/09 CTH not mentioned in 02/14 CTH. [place] [facility]ology contacting readers to clarify. F/u for addendums. 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 She hit her head on the right side. And went to [facility]. Before being transferred to [facility]. 2 CTHs since arrival have been stable when comparing with scans from initial injury. Pt headache is improved this morning. OBJECTIVE VITALS: Temp: Temp: 97.5 F (36.4 C)Temp Av.7 F (36.5 C) Min: 97.2 F (36.2 C) Max: 98.7 F (37.1C) BP Systolic (24hrs), Av , Min:95 , Max:122 Diastolic (24hrs), Av, Min:61, Max:78 Pulse Pulse Av.4 Min: 58 Max: 75 Resp Resp Av.7 Min: 13 Max: 22 Pulse ox SpO2 Av.7 %Min: 99 % Max: 100 % GENERAL: sleeping but rousable. no distress NEURO: GCS 15 HEENT: PERRL, EOM intact LUNGS: clear to ausculation, without wheezes, rales or rhonci HEART: normal rate and regular rhythm ABDOMEN: soft, non-tender, non-distended EXTREMITY: no cyanosis, clubbing or edema No intake/output data recorded. Drain/tube output: No intake/output data recorded. LAB: CBC: Recent Labs 03/09/23 0520 03/10/23 0533 WBC 6.2 6.1 HGB 12.1 11.4* HCT 37.0 35.7* MCV 89.8 90.6 PLT 391 360 BMP: Recent Labs 03/09/23 0519 03/10/23 0533 NA 140 PENDING K 3.7 PENDING CL 104 PENDING CO2 26 PENDING BUN 7 PENDING CREATININE 0.5 PENDING GLUCOSE 89 PENDING COAGS: No results for input(s): APTT, PROT, INR in the last [address] RADIOLOGY: CT HEAD WO CONTRAST Final Result Stable subacute left frontotemporal subdural hematoma measuring 7 mm in thickness without significant mass effect. No new hemorrhage or acute infarct identified. CT CERVICAL SPINE WO CONTRAST Final Result No acute abnormality of the cervical spine. CT HEAD WO CONTRAST Final Result Expected evolutionary changes of left subdural hematoma and minimally hemorrhagic left temporal contusion compared to the previous exam of 02/18/2023. Again noted and unchanged are right temporal bone fracture and probable nondisplaced non angulated right zygomatic arch fracture. Dottie Cuello MD 03/09/23, 7:30 AM Attending Note I have reviewed the above [facility] resident progress note and I either performed the moore elements of the medical history and physical exam or was present when the resident performed them. I have discussed the findings, established the care plan and recommendations with resident, TECSS nurse. The following confirms and/or amends the IMPRESSION, MEDICAL DECISION MAKING and PLAN from above. ASSESSMENT Patient Active Problem List Diagnosis SDH (subdural hematoma) (HCC) Fall Syncope and collapse Hygroma MEDICAL DECISION MAKING AND PLAN Cardiology to assist with syncope workup Felisa Segura MD 03/10/2023 2:12 PM * Harriet Medina RN - 03/09/2023 9:21 PM EDT Report called to 3C. All questions answered. * Callie Dayna - 03/09/2023 12:54 AM EDT [place]IT[place] [facility] [place] PATIENT NAME: Felisa Jones Shift date: 03/09/2023 Shift day: Wednesday Shift # 3 Room # ED13 Name: Felisa Jones Age: 37 y.o. Gender: female Rastafarian: Unknown Place of zoroastrianism: Unknown Trauma/Incident type: Adult Trauma Consult Admit Date & Time: 03/09/2023 12:26 AM TRAUMA NAME: N/A ADVANCE DIRECTIVES IN CHART? No NAME OF DECISION MAKER: Unknown RELATIONSHIP OF DECISION MAKER TO PATIENT: Unknown PATIENT/EVENT DESCRIPTION: Felisa Jones is a 37 y.o. female who arrived as a transfer from [facility] to ED13 and waspaged out as an Adult Trauma Consult due to a Fall. Per report, patient sustained a Subdural Hematoma and Skull Fracture. When clinical genetics laboratory chief visited, patient was laying flat in hospital bed, wearingneck collar and had a towel placed over her eyes. Per report, patient was recently here as a patient, also due to a Fall. Pt to be admitted to 03/30. SPIRITUAL [id number]: Hockey Instructor responded to page and gathered patient information outside room. Hockey Instructor introduced herself to patient in room. Patient indicated that she was experiencing pain. Hockey Instructor inquired about hersupport system. Patient requested that clinical genetics laboratory chief contact her sister, Lottie Schrader ([phone]), who resides in [place]. Per patient, she was taken to the [facility] by a friend. Hockey Instructor leftvoicemail for patient's sister and included the ED Main Line for her reference. Hockey Instructor informed patient that she left a voicemail. Patient thanked clinical genetics laboratory chief for care and support. PATIENT BELONGINGS: No belongings noted ANY BELONGINGS OF SIGNIFICANT VALUE NOTED: N/A REGISTRATION STAFF NOTIFIED? Yes WHAT IS YOUR SPIRITUAL CARE PLAN FOR THIS PATIENT?: [facility]plains can make follow-up visit, per request. Chaplains can be reached 15/03 via [employer]. 03/09/23 0054 Encounter Summary Service Provided For: Patient Referral/Consult From: Multi-disciplinary team (Adult Trauma Consult) Support System Family members Last Encounter 03/08/23 Complexity of Encounter Moderate Begin Time 0054 End Time 0121 Total Time Calculated 27 min Encounter Type Initial Screen/Assessment Crisis Type Trauma Spiritual/Emotional needs Type Spiritual Support Assessment/Intervention/Outcome Assessment Calm;Coping (Experiencing Pain) Intervention Active listening;Discussed illness injury and it s impact;Explored/Affirmed feelings, thoughts, concerns;Explored Coping Skills/Resources;Nurtured Hope;Sustaining Presence/Ministry of presence Outcome Comfort;Coping;Receptive Plan and Referrals Plan/Referrals Continue to visit, (comment) (as needed) . Spiritual Care Department [facility] [phone] documented in [facility] Discharge instructions* Discharge Instructions* Antelmo Mckeon RN - 03/09/2023 8:10 AM EDT Discharge Instructions for Trauma What to do after you leave the hospital: You sustained a head injury during your recent traumatic event. Please refrain from any activities that could put you at risk for further injury to your head as you heal over the next 3-4 weeks (suchas ladders, contact sports, 4- wright/ATV activities, etc.) You received a cognitive evaluation while hospitalized-follow all instructions given by the speech-language pathologist. For additional support and resources for you and your family contact the [facility] at [phone]. This center offers additional therapy, support groups, education and other resources at no cost. The center is located at [address] [place] [address]. You can also visit www.[facility]irc.org for more information. For resources transitioning back to the community following your trauma, visit [email or web address] General questions or concerns please call the Trauma [facility] General Surgery Clinic at [phone]. If needed, the clinic fax number is [phone]. Trauma is a life-threatening condition. Your doctor will want to closely monitor you. Be sure to goto all of your appointments. * Attachments The following attachments cannot be sent through Care Everywhere. * Head Injury: Closed: General Info (Cameroonian) * Subdural Hematoma (Cameroonian) * Vertigo (Cameroonian) documented in this encounterBON [facility] History of Present illness Narrative* ROME Martins - 02/22/2023 11:52 AM EDT Occupational Therapy Facility/Department: [address] ONC/MED SURG Occupational Therapy Daily Treatment Note Name: Felisa Jones : 1985 Date of Service: 02/22/2023 Discharge Recommendations: Patient would benefit from continued therapy after discharge OT Equipment Recommendations Equipment Needed: Yes Mobility Devices: Walker Walker: Rolling ADL Assistive Devices: Transfer Tub Bench;Bariatric Program Coordinator;Sock-Aid Hard;Long-handled Sponge;Long-handled Shoe Horn;Toileting - Raised Toilet Seat with arms Patient Diagnosis(es): The primary encounter diagnosis was Fall, initial encounter. A diagnosis of SDH (subdural hematoma) (HCC) was also pertinent to this visit. Past Medical History: has a past medical history of Depression. Past Surgical History: has no past surgical history on file. Assessment Performance deficits / Impairments: Decreased functional mobility ;Decreased endurance;Decreased ADL status;Decreased balance;Decreased high-level IADLs;Decreased strength;Decreased ROM Prognosis: Good REQUIRES OT FOLLOW-UP: Yes Activity Tolerance Activity Tolerance: Patient limited by pain;Patient Tolerated treatment well Activity Tolerance Comments: Increased pain in head with anterior movement. Plan Occupational Therapy Plan Times Per Week: 3-5x Restrictions Restrictions/Precautions Restrictions/Precautions: General Precautions, Fall Risk Required Braces or Orthoses?: No Position Activity Restriction Other position/activity restrictions: CTLS clear, SBP goal <140 mmHg Subjective General Chart Reviewed: Yes Patient assessed for rehabilitation services?: Yes Response to previous treatment: Patient with no complaints from previous session Family / Caregiver Present: No Diagnosis: SDH, Fall at concert-[employer] Subjective Subjective: 6/10 H/A, repositioning provided, low lighting, pt able to progress with therapy session General Comment Comments: RN approved therapy session this AM. Pt pleasant/cooperative throughout session. Pt reported 6/10 headache, pt able to progress with therapy session. Pt completed functional transfer from chair, standing at sink to complete ADLs and completed toileting. Upon arrival/exit pt sitting up in chair. Pt had call light within reach, all needs met and RN notified. Pt requested to wear sunglasses throughout session d/t light increasing pain. Objective O2 Device: None (Room air) Safety Devices Type of Devices: Gait belt;Nurse notified;Call light within reach;All fall risk precautions in place;Left in chair Restraints Restraints Initially in Place: No Bed Mobility Training Bed Mobility Training: No (JOSHUA: pt in chair upon arrival/exit) Balance Sitting: With support (Sitting edge of chair and toilet, SBA for safety time ~7- 10 mins completed some ADLs with static and dynamic sitting. No LOB, occasional support from arms on chair and RW whilesitting on toilet.) Sitting - Static: Good (unsupported) Sitting - Dynamic: Fair (occasional) Standing: With support (CGA for safety, RW for support, dynamic and static standing at sink and pre/post functional mobility. ~6-7 mins. no LOB, slow movements to complete tasks while standing.) Standing - Static: Good Standing - Dynamic: Fair Transfer Training Transfer Training: Yes Overall Level of Assistance: Additional time;Adaptive equipment;Minimum assistance;Assist X1 (w/ RW) Interventions: Safety awareness training;Verbal cues (VCs for letting body regulate before functional mobility; good return) Sit to Stand: Minimum assistance;Assist X1;Additional time;Adaptive equipment (w/ RW) Stand to Sit: Minimum assistance;Assist X1;Additional time;Adaptive equipment (w/ RW) Toilet Transfer: Contact-guard assistance;Adaptive equipment;Additional time;Assist X1 (w/ grab bars on toilet seat and RW) Gait Overall Level of Assistance: Minimum assistance;Adaptive equipment;Additional time;Assist X1 (w/ RW, pt completed functional mobility of simulated house hold distances from phong<>bathroom. No LOB, slow movement when completing task. time; ~4 mins) Interventions: Safety awareness training;Verbal cues (VCs for watching for obstacles while completing functional mobility: good return) Assistive Device: Walker, rolling;Gait belt ADL Grooming: Setup;Increased time to complete;Stand by assistance Grooming Skilled Clinical Factors: standing at sink w/ support of RW, pt. encouraged to use R UE. SBA overall to complete action of brushing teeth/washing face/washing hands. UE Dressing: Setup;Increased time to complete;Supervision UE Dressing Skilled Clinical Factors: Doffed gown and donned sweatshirt sitting edge of chair, SUP + increased time and effort. Ed pt on limiting head movement and not bending forward to decrease pain in head. LE Dressing: Setup;Increased time to complete;Stand by assistance LE Dressing Skilled Clinical Factors: Donned slide in sandals, edu on 4 figure tech d/t high pain in head with movement. Toileting: Setup;Increased time to complete;Stand by assistance Toileting Skilled Clinical Factors: Pt completed pericare on toilet this date. Activity Tolerance Activity Tolerance: Patient limited by endurance;Patient limited by fatigue;Patient limited by pain Cognition Overall Cognitive Status: WFL Orientation Overall Orientation Status: Within Functional Limits Orientation Level: Oriented X4 Education Given To: Patient Education Provided: Role of Therapy;Plan of Care;ADL Adaptive Strategies;Transfer Training;Energy Conservation;Precautions Education Provided Comments: Precautions with completing functional mobility in a darkroom and withsunglasses on w/ RW, taking rest breaks when needed, letting body regulate prior to completing functional mobility, keeping head straight and up as much as possible with completing ADLs and bending knees to bring face closer to sink, instead of bending neck and back, and to use R UE as much as possible; good return Education Method: Verbal Barriers to Learning: Vision;Hearing Education Outcome: Verbalized understanding;Continued education needed;Demonstrated understanding AM-PAC Score AM-PAC Inpatient Daily Activity Raw Score: 18 (02/22/23 115) AM-PAC Inpatient ADL T-Scale Score : 38.66 (02/22/23 115) ADL Inpatient CMS 0-100% Score: 46.65 (02/22/23 115) ADL Inpatient CMS G-Code Modifier : CK (02/22/231151) Goals Short Term Goals Time Frame for Short Term Goals: Pt will by discharge Short Term Goal 1: demo good safety awareness during func mob around room at CGA and using LRD PRN Short Term Goal 2: demo ADL UB bathing/dressing activity at mod I with setup provided Short Term Goal 3: demo ADL LB bathing/dressing activity at SBA with setup provided, increased time, AE PRN Short Term Goal 4: identify 2 non-pharm, pain-relieving techniques with 1 cue Short Term Goal 5: demo FMC func activity using RUE only for 10 min+ with <2 errors Therapy Time Individual Concurrent Group Co-treatment Time In 1040 Time Out 1124 Minutes 44 Timed Code Treatment Minutes: 39 Minutes FREDDY Martins/Aparna * Rosina Lugo - 02/22/2023 11:14 AM EDT Speech Language Pathology [facility] Cognitive Treatment Note Date: 02/22/2023 Patient s Name: Felisa Jones Diagnosis: Patient Active Problem List Diagnosis Code SDH (subdural hematoma) ([facility]) S06.5XAA Fall W19.XXXA Cognitive Treatment Treatment time: 6291-0411 Subjective: [x] Alert [x] Cooperative [] Confused [] Agitated [] Lethargic Objective/Assessment: Recall: Delayed Recall-Related Words: 4/6 increased to 6/6 with min-mod cues, Word List Retention-Attribute Inclusion: 8 increased to 10 with repetition and min cues Problem Solving/Reasoning: Add to the Category-[place]: 04/02 increased to 07/03 with min-mod cues,Problem Solving-Missing Equipment: 01/27 increased to 02/26 with mod cues, Category Members-[place]field Generation: Pt able to independently name 9+ members of a concrete category, increases with min cues Other: Pt reports she feels better today and is in a better mood than previous days due to her leaving today. She also reports frustration with word finding difficulties still, stating she can see what she wants to say, but cannot get the words out right. Plan: [x] Continue ST services [] Discharge from ST: Discharge recommendations: [x] Further therapy recommended at discharge.The patient should be able to tolerate at least 3 hours of therapy per day over 5 days or 15 hours over 7 days. [] Further therapy recommended at discharge. [] No therapy recommended at discharge. Completed by Rosina Lugo Foreign Student Adviser Clinician Co-signed by Sultana Lema M.A.CCC/PRESSURE TESTER * Zoraida Davies, PT - 02/22/2023 10:03 AM EDT Physical Therapy Facility/Department: [address] ONC/MED SURG Daily treatment note Name: Felisa Jones : 1985 Date of Service: 02/22/2023 Discharge Recommendations: Further therapy recommended at discharge. No chief complaint on file. PT Equipment Recommendations Equipment Needed: Yes Mobility Devices: Walker Walker: Rolling Patient Diagnosis(es): The primary encounter diagnosis was Fall, initial encounter. A diagnosis of SDH (subdural hematoma) (HCC) was also pertinent to this visit. Past Medical History: has a past medical history of Depression. Past Surgical History: has no past surgical history on file. Assessment Body Structures, Functions, Activity Limitations Requiring Skilled Therapeutic Intervention: Decreased functional mobility ;Decreased endurance;Increased pain;Decreased balance;Decreased strength;Decreased ROM;Vestibular Impairment Assessment: Pt ambulates 40 ft with RW and CGA. Pt currently is a high fall risk d/t decreased balance and endurance, benefitting from 24 hr support for functional mobility. pt would benefit from continued therapy to promote endurance, balance, and strengthening. Therapy Prognosis: Good Decision Making: Medium Complexity Barriers to Learning: none Requires PT Follow-Up: Yes Activity Tolerance Activity Tolerance: Patient limited by endurance;Patient limited by fatigue;Patient limited by pain Plan Physcial Therapy Plan General Plan: (5-6x/wk) Current Treatment Recommendations: Strengthening, Balance training, Functional mobility training, Transfer training, Endurance training, Gait training, Stair training, Neuromuscular re-education, Home exercise program, Safety education & training, Patient/Caregiver education & training, Equipment evaluation, education, & procurement, Therapeutic activities Safety Devices Type of Devices: Gait belt, Nurse notified, Call light within reach, All fall risk precautions in place, Left in chair Restraints Restraints Initially in Place: No Restrictions Restrictions/Precautions Restrictions/Precautions: General Precautions, Fall Risk Required Braces or Orthoses?: No Position Activity Restriction Other position/activity restrictions: CTLS clear, SBP goal <140 mmHg Subjective General Patient assessed for rehabilitation services?: Yes Response To Previous Treatment: Patient with no complaints from previous session. Family / Caregiver Present: No Follows Commands: Within Functional Limits Subjective Subjective: RN and pt agreeable to PT. pt agreeable and pleasant. pt seated in recliner at start ofsession, c/o 6/10 head pain. Cognition Orientation Overall Orientation Status: Within Functional Limits Cognition Overall Cognitive Status: WFL Bed mobility Scooting: Stand by assistance Bed Mobility Comments: Pt begins and ends in recliner Transfers Sit to Stand: Stand by assistance Stand to Sit: Stand by assistance Bed to Chair: (toilet transfer & transfer to chair with no arms) Comment: Used RW. Verbal cues given for hand placement during transfers w/ good return. Ambulation Surface: Level tile Device: Rolling Walker Assistance: Contact guard assistance Quality of Gait: R foot shuflles, wide DANIEL, forward flexed posture, slow cautious & guarded with movements durng gait, no standing rest breaks however very slow with movements, relies on RW for balance, v.c's to try to open both eyes Gait Deviations: Slow Eve;Decreased step length;Decreased step height Distance: 40 ft Comments: Pt with difficulty with picking up RLE during ambulation. Pt c/o RLE pain during ambulation. More Ambulation?: No Stairs/Curb Stairs?: No Balance Posture: Good Sitting - Static: Good Sitting - Dynamic: Good Standing - Static: Fair Standing - Dynamic: Fair Comments: Assessed with RW Standing exercise program: Heel/toe raises, hip flexion. Reps: 10x AROM BLE with RW support. Seated LE exercise program: Long Arc Quads, hip abduction/adduction, hamstring curls all with greenresistance band. Reps: 10x BLE AROM 10x biceps curls with green resistance band AROM BUE. AM-PAC Score AM-PAC Inpatient Mobility Raw Score : 18 (02/22/231002) AM-PAC Inpatient T-Scale Score : 43.63 (02/22/231002) Mobility Inpatient CMS 0-100% Score: 46.58 (02/22/231002) Mobility Inpatient CMS G-Code Modifier : CK (02/22/231002) Goals Short Term Goals Time Frame for Short Term Goals: 10 visits Short Term Goal 1: Pt will be IND in all bed mobility tasks Short Term Goal 2: Pt will be IND in transfers Short Term Goal 3: Pt will amb 300' IND Short Term Goal 4: Pt will amb 1 flight of stairs Iesha w/ unilateral railing. Education Patient Education Education Given To: Patient Education Provided: Role of Therapy;Plan of Care Education Method: Verbal Barriers to Learning: None Education Outcome: Verbalized understanding;Demonstrated understanding Therapy Time Individual Concurrent Group Co-treatment Time In 0924 Time Out 0949 Minutes 25 Timed Code Treatment Minutes: 23 Minutes Zoraida Davies PT * Jt Corbin MD - 02/21/2023 8:01 AM EDT Images from the original note were not included. PROGRESS NOTE PATIENT NAME: Felisa Jones DATE: 02/21/2023 SURGEON: Jt Corbin PRIMARY CARE PHYSICIAN: No primary care provider on file. HD: # 7 ASSESSMENT Patient Active Problem List Diagnosis SDH (subdural hematoma) (HCC) Fall MEDICAL DECISION MAKING AND PLAN L frontal parietal SDH and L temporal SAH NS signed off. Repeat CTH 2 weeks from 02/15 Keppra BID Mild TBI Post concussive syndrome PT/OT MMPT Regular diet [facility] SUBJECTIVE Felisa Jones was seen and examined bedside. No acute events overnight. Patient reports feeling a bit better this morning. She states that her headache is less intense. Still having photophobia. Patient states that she has been up and ambulating. Denies any nausea or vomiting. Tolerating diet. OBJECTIVE VITALS: Temp: Temp: 98.3 F (36.8 C)Temp Av.4 F (36.9 C) Min: 98.3 F (36.8 C) Max: 98.4 F (36.9C) BP Systolic (24hrs), Av , Min:114 , Max:124 Diastolic (24hrs), Av, Min:55, Max:72 Pulse Pulse Av.3 Min: 65 Max: 80 Resp Resp Av.5 Min: 16 Max: 18 Pulse ox SpO2 Av.5 %Min: 97 % Max: 98 % GENERAL: Awake, alert, no apparent distress NEURO: GCS 15, moving all extremities, following commands HEENT: Normocephalic LUNGS: No acute respiratory distress, or accessory muscle use HEART: normal rate and regular rhythm ABDOMEN: soft, nondistended EXTREMITY: no cyanosis, clubbing or edema I/O last 3 completed shifts: In: 700 [P.O.:700] Out: 1950 [Urine:1950] LAB: CBC: Recent Labs 02/19/23 0924 WBC 6.0 HGB 11.1* HCT 34.9* MCV 92.6 PLT 251 BMP: Recent Labs 02/19/23 0924 02/20/23 0604 02/21/23 0600 NA 138 138 140 K 4.1 4.0 4.2 CL 105 104 105 CO2 24 20 24 BUN 8 13 11 CREATININE 0.42* 0.48* 0.51 GLUCOSE 85 93 94 No results found. Isabel Barone, 02/21/23, 8:01 AM Attestation signed by Jt Corbin MD I personally evaluated the patient and directed the medical decision making with Resident/SULTANA afterthe physical/radiologic exam and laboratory values were reviewed and confirmed. Still c/o headaches. Jt Corbin MD * Nguyễn Villaseñor, TOOL BUILDER - 02/20/2023 1:00 PM EDT Physical Therapy Facility/Department: [address] ONC/MED SURG Physical Therapy Name: Felisa Jones : 1985 Date of Service: 02/20/2023 Discharge Recommendations: Cont with therapy Patient Diagnosis(es): The primary encounter diagnosis was Fall, initial encounter. A diagnosis of SDH (subdural hematoma) (HCC) was also pertinent to this visit. Past Medical History: has a past medical history of Depression. Past Surgical History: has no past surgical history on file. Assessment Body Structures, Functions, Activity Limitations Requiring Skilled Therapeutic Intervention: Decreased functional mobility ;Decreased endurance;Increased pain;Decreased balance;Decreased strength;Decreased ROM;Vestibular Impairment Assessment: pt amb up to ~30 ft with CGA of 1. pt relies heavily on RW. pt jayda static/dynamic sitting & static activity. pt requires assist with all mobility as she is a falls risk @ this time. pt jayda therapy well however with noticeable R sided headache pain. pt jayda stepping over 1 step ~4 inches tall requiring min assist of 1 & v.c's for hand/foot placement. pt requires increased time as her movements are slow pace cautious & posture is guarded. pt is sensitive to light. pt could benefit form cont therapy to improve her dynamic functional mobility. Requires PT Follow-Up: Yes Activity Tolerance Activity Tolerance: Patient tolerated treatment well Activity Tolerance Comments: pt jayda therapy well, 1 assist to amb in room & to bathroom @ distance of ~30' RW & CGA of 1 Plan Physical Therapy Plan General Plan: (5-6x/wk) Current Treatment Recommendations: Strengthening, Balance training, Functional mobility training, Transfer training, Endurance training, Gait training, Stair training, Neuromuscular re-education, Home exercise program, Safety education & training, Patient/Caregiver education & training, Equipment evaluation, education, & procurement, Therapeutic activities Safety Devices Type of Devices: Patient at risk for falls, Gait belt, Nurse notified, Call light within reach, Allfall risk precautions in place, Left in bed Restraints Restraints Initially in Place: No Restrictions Restrictions/Precautions Restrictions/Precautions: General Precautions, Fall Risk Required Braces or Orthoses?: No Position Activity Restriction Other position/activity restrictions: CTLS clear, SBP goal <140 mmHg Subjective General Chart Reviewed: Yes Patient assessed for rehabilitation services?: Yes Response To Previous Treatment: Patient with no complaints from previous session. Family / Caregiver Present: Yes (pt had visitors arrive @ end of therapy session) Follows Commands: Within Functional Limits General Comment Comments: RN and pt agreeable to PT. pt alert in bed upon arrival.Upon arrival pt in supine with ice packs on head Subjective Subjective: pt with R sided headache @ 8/10. Social/Functional History Social/Functional History Lives With: Family (5 children, oldest age 17 yo.) Type of Home: House Home Layout: Two level (Sleeps on 2nd floor) Home Access: Level entry Bathroom Shower/Tub: Tub/Shower unit Bathroom Toilet: Standard Bathroom Accessibility: Accessible Home Equipment: Cane (not using at baseline) Has the patient had two or more falls in the past year or any fall with injury in the past year?: No Receives Help From: Family ADL Assistance: Independent Homemaking Assistance: Independent Homemaking Responsibilities: Yes Ambulation Assistance: Independent Transfer Assistance: Independent Active Drawer In: Yes Mode of Transportation: SUV 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 Pt. requires increased time to complete bed mobility this date. Transfers Sit to Stand: Stand by assistance Stand to Sit: Stand by assistance Bed to Chair: Contact guard assistance (toilet transfer x2, to EOB & transfer to chair with no arms) Stand Pivot Transfers: Contact guard assistance Comment: Used RW. Verbal cues given for hand placement during transfers w/ good return. pt jayda multiple transfer from various heightened surfaces Ambulation Surface: Level tile Device: Rolling Walker Assistance: Contact guard assistance Quality of Gait: R foot shuffles, wide DANIEL, forward flexed posture, slow cautious & guarded with movements during gait, no standing rest breaks however very slow with movements, relies on RW for balance, v.c's given to pt to try to open both eyes as pt tends to keep one eye shut & squints with the other Gait Deviations: Slow Eve;Decreased step length;Decreased step height Distance: 31', 15', 5'x2 Balance Posture: Good Sitting - Static: Good Sitting - Dynamic: Good Standing - Static: (v.c's to upright forward flexed trunk, 1 UE used to assist with static standingbalance) Standing - Dynamic: (pt jayda dynamic standing activity of reach forward & lateral & behind with 1 UE used to assist for balance/support.) Comments: pt jayda unsupported static/dynamic sitting. pt jayda static/dynamic standing activity in thebathroom which include stepping strategy & standing in front of sink AM-PAC Score AM-PAC Inpatient Mobility Raw Score : 19 (02/19/23 1605) AM-PAC Inpatient T-Scale Score : 45.44 (02/19/23 1605) Mobility Inpatient CMS 0-100% Score: 41.77 (02/19/23 1605) Mobility Inpatient CMS G-Code Modifier : CK (02/19/23 160) Goals Short Term Goals Time Frame for Short Term Goals: 10 visits Short Term Goal 1: Pt will be IND in all bed mobility tasks Short Term Goal 2: Pt will be IND in transfers Short Term Goal 3: Pt will amb 300' IND Short Term Goal 4: Pt will amb 1 flight of stairs Iesha w/ unilateral railing. Education Patient Education Education Given To: Patient Education Provided: Role of Therapy;Plan of Care Education Provided Comments: pt educated on PT POC Education Method: Verbal Barriers to Learning: None Education Outcome: Verbalized understanding;Demonstrated understanding Therapy Time Individual Concurrent Group Co-treatment Time In 1127 Time Out 1225 Minutes 58 NGUYỄN VILLASEÑOR, PAUL * Jt Corbin MD - 02/20/2023 11:08 AM EDT Images from the original note were not included. PROGRESS NOTE PATIENT NAME: Felisa Jones DATE: 02/20/2023 SURGEON: Jt Corbin PRIMARY CARE PHYSICIAN: No primary care provider on file. HD: # 6 ASSESSMENT Patient Active Problem List Diagnosis SDH (subdural hematoma) (HCC) Fall MEDICAL DECISION MAKING AND PLAN L frontal parietal SDH and L temporal SAH NS signed off. Repeat CTH 2 weeks from 02/15 Mild TBI Post concussive syndrome Difficulty getting around PT/OT MMPT Rehab candidate. [facility] to accept, precert has begun. SUBJECTIVE Felisa Jones is is unchanged since yesterday. Pt is still have a persistent headache but has beenable to eat and drink some. She has yet to have a BM. Her headache improves when she lies on her R side. OBJECTIVE VITALS: Temp: Temp: 98.2 F (36.8 C)Temp Av.2 F (36.8 C) Min: 98.1 F (36.7 C) Max: 98.2 F (36.8C) BP Systolic (24hrs), Av , Min:93 , Max:108 Diastolic (24hrs), Av, Min:48, Max:62 Pulse Pulse Av Min: 62 Max: 66 Resp Resp Av Min: 14 Max: 16 Pulse ox SpO2 Av % Min: 95 % Max: 97 % GENERAL: Uncomfortable appearing, alert, no distress NEURO: GCS 15 HEENT: No scleral icterus. Dry mucous membranes LUNGS: clear to ausculation, without wheezes, rales or rhonci HEART: normal rate and regular rhythm ABDOMEN: soft, non-tender, non-distended, bowel sounds present in all 4 quadrants, and no guarding or peritoneal signs present EXTREMITY: no cyanosis, clubbing or edema I/O last 3 completed shifts: In: - Out: 3950 [Urine:3950] Drain/tube output: In: - Out: 2800 [Urine:2800] LAB: CBC: Recent Labs 02/19/23 0924 WBC 6.0 HGB 11.1* HCT 34.9* MCV 92.6 PLT 251 BMP: Recent Labs 02/19/23 0924 02/20/23 0604 NA 138 138 K 4.1 4.0 CL 105 104 CO2 24 20 BUN 8 13 CREATININE 0.42* 0.48* GLUCOSE 85 93 COAGS: No results for input(s): APTT, PROT, INR in the last 72 hours. Philip Lainez DO 02/20/23, 11:09 AM Attestation signed by tJ Corbin MD I personally evaluated the patient and directed the medical decision making with Resident/SULTANA afterthe physical/radiologic exam and laboratory values were reviewed and confirmed. Jt Corbin MD * Jaime Gracia, SPT - 02/19/2023 4:06 PM EDT Physical Therapy Facility/Department: [address] ONC/MED SURG Physical Therapy Daily Treatment Note Name: Felisa Jones : 1985 Date of Service: 02/19/2023 Discharge Recommendations: Further therapy recommended at discharge. PT Equipment Recommendations Equipment Needed: No (CTA) Patient Diagnosis(es): The primary encounter diagnosis was Fall, initial encounter. A diagnosis of SDH (subdural hematoma) (HCC) was also pertinent to this visit. Past Medical History: has a past medical history of Depression. Past Surgical History: has no past surgical history on file. Assessment Body Structures, Functions, Activity Limitations Requiring Skilled Therapeutic Intervention: Decreased functional mobility ;Decreased endurance;Increased pain;Decreased balance;Decreased strength;Decreased ROM;Vestibular Impairment Assessment: Pt. amb 20' at CGA w/ RW w/ increased time to complete this date. Pt. CGA for transfersw/ RW and increased time to complete. Pt. SBA for bed mobility. Pt is a fall risk and is currently unsafe to return to prior living situation. Pt. would benefit from continued acute PT to address deficits in strength, balance, and endurance. Therapy Prognosis: Good Decision Making: Medium Complexity Barriers to Learning: None Requires PT Follow-Up: Yes Activity Tolerance Activity Tolerance: Patient limited by pain Activity Tolerance Comments: Pt. primarily limited by dizziness and R sided head pain during functional mobility. Plan Physcial Therapy Plan General Plan: (5-6x/wk) Current Treatment Recommendations: Strengthening, Balance training, Functional mobility training, Transfer training, Endurance training, Gait training, Stair training, Neuromuscular re-education, Home exercise program, Safety education & training, Patient/Caregiver education & training, Equipment evaluation, education, & procurement, Therapeutic activities Safety Devices Type of Devices: Patient at risk for falls, Gait belt, Nurse notified, Call light within reach, Allfall risk precautions in place, Left in chair Restraints Restraints Initially in Place: No Restrictions Restrictions/Precautions Restrictions/Precautions: General Precautions, Fall Risk Required Braces or Orthoses?: No Position Activity Restriction Other position/activity restrictions: CTLS clear, SBP goal <140 mmHg Subjective General Patient assessed for rehabilitation services?: Yes Response To Previous Treatment: Patient with no complaints from previous session. Family / Caregiver Present: No Follows Commands: Within Functional Limits Subjective Subjective: RN and pt. agreeable to PT. Pt. sleeping and supine in bed upon arrival. Pt. c/o / Rsided head pain this date. Pt. c/o chronic n/t in R hand. Cognition Orientation Overall Orientation Status: Within Functional Limits Cognition Overall Cognitive Status: WFL Gross Assessment Sensation: Impaired (Pt. c/o chronic n/t in R hand.) Bed mobility Supine to Sit: Stand by assistance Sit to Supine: (not assessed d/t pt ending session in recliner) Scooting: Stand by assistance Bed Mobility Comments: HOB elevated. Pt. requires increased time to complete bed mobility this date. Pt. c/o dizziness upon sittign EOB that reduces prior to transfers. Transfers Sit to Stand: Contact guard assistance Stand to Sit: Contact guard assistance Comment: Used RW. Verbal cues given for hand placement during transfers w/ good return. Pt. reportsdizziness in standing that decreases prior to amb. Ambulation Surface: Level tile Device: Rolling Walker Assistance: Contact guard assistance Gait Deviations: Slow Eve;Decreased step length;Decreased step height Distance: 20' Comments: Pt. grossly unsteady but no major LOB noted during amb this date. Pt. amb very slowly butable to complete distance to chair. Pt. c/o dizziness during amb but able to continue. More Ambulation?: No Stairs/Curb Stairs?: No Balance Posture: Good Sitting - Static: Good Sitting - Dynamic: Good Standing - Static: Fair Standing - Dynamic: Fair Comments: Assessed w/ RW. Pt. sitting unsupported EOB or chair x8 min w/ SBA. Pt. standing balance x30 sec w/ CGA and RW prior to amb. Exercises: Seated LE exercise program: Long Arc Quads, hip abduction/adduction, heel/toe raises, and marches. Reps: x10 each B LE AROM AM-PAC Score AM-PAC Inpatient Mobility Raw Score : 19 (02/19/23 1605) AM-PAC Inpatient T-Scale Score : 45.44 (02/19/23 160) Mobility Inpatient CMS 0-100% Score: 41.77 (02/19/23 1605) Mobility Inpatient CMS G-Code Modifier : CK (02/19/23 160) Goals Short Term Goals Time Frame for Short Term Goals: 10 visits Short Term Goal 1: Pt will be IND in all bed mobility tasks Short Term Goal 2: Pt will be IND in transfers Short Term Goal 3: Pt will amb 300' IND Short Term Goal 4: Pt will amb 1 flight of stairs Iesha w/ unilateral railing. Education Patient Education Education Given To: Patient Education Provided: Role of Therapy;Plan of Care Education Method: Demonstration;Verbal Barriers to Learning: None Education Outcome: Verbalized understanding;Demonstrated understanding Therapy Time Individual Concurrent Group Co-treatment Time In 1519 Time Out 1547 Minutes 28 Timed Code Treatment Minutes: 25 Minutes ISIDRO Villagran This treatment/evaluation completed by signing SPT. Signing PT agrees with treatment and documentation. * Rosina Lugo - 02/19/2023 11:48 AM EDT Speech Language Pathology [facility] Cognitive Treatment Note Date: 02/19/2023 Patient s Name: Felisa Jones Diagnosis: Patient Active Problem List Diagnosis Code SDH (subdural hematoma) ([facility]) [id number] Fall W19.XXXA Pain: 7/10 Pain reported to RN Cognitive Treatment Treatment time: 1047-2434 Subjective: [x] Alert [x] Cooperative [] Confused [] Agitated [] Lethargic Objective/Assessment: Recall: Delayed Recall-Related Words: 4/6 increased to 6/6 with min cues, Immediate Recall 4 Units:8/8 Problem Solving/Reasoning: Wrong Category-[place]: 4/7 increased to 7/7 with repetition and min cues, Problem Solving-Answering Questions: 10/10, Category Members-[place] Generation: pt able to independently name 7+ members of a concrete category Other: Pt receptive to therapy today even though she was in 7/10 pain. Pt recognized she was doing better cognitively. ST left memory strategies at bedside. Plan: [x] Continue ST services [] Discharge from ST: Discharge recommendations: [x] Further therapy recommended at discharge.The patient should be able to tolerate at least 3 hours of therapy per day over 5 days or 15 hours over 7 days. [] Further therapy recommended at discharge. [] No therapy recommended at discharge. Completed by Rosina Lugo Foreign Student Adviser Clinician Co-signed by Sultana Lema M.A.CCC/PRESSURE TESTER * Jt Corbin MD - 02/19/2023 7:33 AM EDT Images from the original note were not included. PROGRESS NOTE PATIENT NAME: Felisa Jones DATE: 02/19/2023 HD: # 5 Patient Active Problem List Diagnosis SDH (subdural hematoma) (HCC) Fall DIAGNOSIS AND PLAN Sdh sah Mild tbi Post concussive syndrome Difficulty getting around r/t concussive syndrome Ot pt motrin tylenol Robaxin muscle pain Some improved nausea until this am Is eating Head ct improved Will allow use antivert, prn stanley, scheduled zofran, trial topamax She is not ready for dc home today she can go to rehab Rehab candidate OBJECTIVE VITALS: Vitals: 02/18/232035 BP: (!) 118/55 Pulse: 62 Resp: 18 Temp: 98.2 F (36.8 C) SpO2: 99% Physical Exam Constitutional: Appearance: She is ill-appearing. HENT: Mouth/Throat: Mouth: Mucous membranes are dry. Cardiovascular: Rate and Rhythm: Normal rate. Pulmonary: Effort: Pulmonary effort is normal. Abdominal: Palpations: Abdomen is soft. Musculoskeletal: General: No deformity. Cervical back: No rigidity. Skin: Capillary Refill: Capillary refill takes less than 2 seconds. Neurological: Mental Status: She is alert. GCS: GCS eye subscore is 4. GCS verbal subscore is 5. GCS motor subscore is 6. Comments: Dizzy and nauseated with movement Tolerates when in bed Attestation signed by Jt Corbin MD I personally evaluated the patient and directed the medical decision making with Resident/SULTANA afterthe physical/radiologic exam and laboratory values were reviewed and confirmed. Jt Corbin MD * Rosina Lugo - 02/18/2023 1:38 PM EDT [facility] Speech Language Pathology Date: 02/18/2023 Patient Name: Felisa Jones Date of : 1985 AGE: 37 y.o. Patient Not Available for Speech Therapy Due to: [] Testing [] Hemodialysis [] Cancelled by RN [] Surgery [] Intubation/Sedation/Pain Medication [] Medical instability [x] Other: Pt reports 8/10 pain today, requested to try tomorrow. Reported pain to RN. Next scheduled treatment: 02/19/23 Completed by Rosina Lugo Foreign Student Adviser Clinician Co-signed by Funmi Jaffe M.S. CCC/PRESSURE TESTER * Jt Corbin MD - 02/18/2023 9:50 AM EDT Images from the original note were not included. PROGRESS NOTE PATIENT NAME: Felisa Jones DATE: 02/18/2023 HD: # 4 Patient Active Problem List Diagnosis SDH (subdural hematoma) (HCC) Fall DIAGNOSIS AND PLAN Sdh sah Mild tbi Post concussive syndrome Difficulty getting around r/t concussive syndrome Ot pt motrin tylenol Robaxin muscle pain Some improved nausea until this am Will repeat head ct today, add in zofran She is not ready for dc home today but improved Rehab candidate OBJECTIVE VITALS: Vitals: 02/18/23 0723 BP: 112/64 Pulse: 56 Resp: 18 Temp: 97.6 F (36.4 C) SpO2: 98% Physical Exam Constitutional: Appearance: She is ill-appearing. HENT: Mouth/Throat: Mouth: Mucous membranes are dry. Cardiovascular: Rate and Rhythm: Normal rate. Pulmonary: Effort: Pulmonary effort is normal. Abdominal: Palpations: Abdomen is soft. Musculoskeletal: General: No deformity. Cervical back: No rigidity. Skin: Capillary Refill: Capillary refill takes less than 2 seconds. Neurological: Mental Status: She is alert. GCS: GCS eye subscore is 4. GCS verbal subscore is 5. GCS motor subscore is 6. Comments: Dizzy and nauseated with movement Tolerates when in bed LAB: CBC: No results for input(s): WBC, HGB, HCT, MCV, PLT in the last 72 hours. BMP: No results for input(s): NA, K, CL, CO2, BUN, CREATININE, GLUCOSE in the last 72 hours. Attestation signed by GABRIELA ELIZONDO CNP I personally evaluated the patient and directed the medical decision making with Resident/SULTANA afterthe physical/radiologic exam and laboratory values were reviewed and confirmed. GABRIELA ELIZONDO CNP Attestation signed by Jt Corbin MD I personally evaluated the patient and directed the medical decision making with Resident/SULTANA afterthe physical/radiologic exam and laboratory values were reviewed and confirmed. Jt Corbin MD * Mina Yeison, PT - 02/18/2023 9:26 AM EDT Physical Therapy Facility/Department: [address] ONC/MED SURG Physical Therapy treatment Name: Felisa Jones : 1985 Date of Service: 02/18/2023 Discharge Recommendations: Further therapy recommended at discharge. PT Equipment Recommendations Other: CTA Patient Diagnosis(es): The primary encounter diagnosis was Fall, initial encounter. A diagnosis of SDH (subdural hematoma) (HCC) was also pertinent to this visit. Past Medical History: has a past medical history of Depression. Past Surgical History: has no past surgical history on file. Assessment Body Structures, Functions, Activity Limitations Requiring Skilled Therapeutic Intervention: Decreased functional mobility ;Decreased endurance;Increased pain;Decreased balance;Decreased strength;Decreased ROM;Vestibular Impairment Assessment: Pt grossly CGA to [place], EOB SBA with CGA for couple LoB pt largely self corrected. minABLE management for sit to supine. Pt would benefit from continued acute PT to address deficits. Therapy Prognosis: Good Decision Making: Medium Complexity Requires PT Follow-Up: Yes Activity Tolerance Activity Tolerance: Patient limited by pain;Other (comment) Activity Tolerance Comments: Pt primarily limited by dizziness and R sided head pain EOB while sitting EOB, declined any transfer. Plan Physcial Therapy Plan General Plan: (5x/wk) Current Treatment Recommendations: Strengthening, Balance training, Functional mobility training, Transfer training, Endurance training, Gait training, Stair training, Neuromuscular re-education, Home exercise program, Safety education & training, Patient/Caregiver education & training, Equipment evaluation, education, & procurement, Therapeutic activities Safety Devices Type of Devices: Patient at risk for falls, Gait belt, Nurse notified, Call light within reach, Allfall risk precautions in place, Left in bed Restraints Restraints Initially in Place: No Restrictions Restrictions/Precautions Restrictions/Precautions: General Precautions, Fall Risk Required Braces or Orthoses?: No Position Activity Restriction Other position/activity restrictions: CTLS cleared. Nondisplaced nondepressed fracture running vertically down the inferior right parietal skull. SBP goal<140 Subjective General Patient assessed for rehabilitation services?: Yes Response To Previous Treatment: Patient with no complaints from previous session. Family / Caregiver Present: No Follows Commands: Within Functional Limits General Comment Comments: RN and pt agreeable to PT. pt alert in bed upon arrival. Subjective Subjective: Pt reports 9/10 R sided head pain. Pt also endorses chronic numbness/ tingling in R hand. Cognition Orientation Overall Orientation Status: Within Functional Limits Objective AROM RLE (degrees) RLE AROM: WFL AROM LLE (degrees) LLE AROM : WFL Strength RLE Strength RLE: WFL Strength LLE Strength LLE: WFL Bed mobility Supine to Sit: Stand by assistance Sit to Supine: Minimal assistance (BLE management, pt requested) Scooting: Stand by assistance Bed Mobility Comments: increased time to perform. Transfers Comment: After sever minutes, including exercises, EOB dizziness not subsided. Intermittant onset nausea per pt as well, and high pain limiting any attempt at standing. Balance Posture: Good Sitting - Static: Fair;+ Sitting - Dynamic: Fair;+ Exercise Treatment: Pt EOB ~15min, increased time for mobility and activities. c/o dizziness and R head pain chief limitation, as well as intermittant nausea. Pt performed seated EOB 15x Bilat. AROM:LAQ, marches, hip abd. AM-PAC Score AM-PAC Inpatient Mobility Raw Score : 15 (02/18/23924) AM-PAC Inpatient T-Scale Score : 39.45 (02/18/23924) Mobility Inpatient CMS 0-100% Score: 57.7 (02/18/23924) Mobility Inpatient CMS G-Code Modifier : CK (06/29/23 0925) Goals Short Term Goals Time Frame for Short Term Goals: 10 visits Short Term Goal 1: Pt will be IND in all bed mobility tasks Short Term Goal 2: Pt will be IND in transfers Short Term Goal 3: Pt will amb 300' IND Short Term Goal 4: Pt will amb 1 flight of stairs Iesha w/ unilateral railing. Education Patient Education Education Given To: Patient Education Provided: Role of Therapy;Plan of Care Education Method: Demonstration;Verbal Barriers to Learning: None Education Outcome: Verbalized understanding;Demonstrated understanding Therapy Time Individual Concurrent Group Co-treatment Time In 0810 Time Out 0836 Minutes 26 Timed Code Treatment Minutes: 24 Minutes Mina Latham PT * ROME Raymond - 02/17/2023 4:20 PM EDT Occupational Therapy Facility/Department: [address] ONC/MED SURG Occupational Therapy Daily Progress Note Name: Felisa Jones : 1985 Date of Service: 02/17/2023 Discharge Recommendations:Pt. Would benefit from 3 hours of therapy per day or 15 hours over a 7 day period. Pt. Is a major fall risk. Patient would benefit from continued therapy after discharge OT Equipment Recommendations Equipment Needed: Yes Mobility Devices: Walker Walker: Rolling ADL Assistive Devices: Transfer Tub Bench;Bariatric Program Coordinator;Sock-Aid Hard;Long-handled Sponge;Long-handled Shoe Horn;Toileting - Raised Toilet Seat with arms Patient Diagnosis(es): The primary encounter diagnosis was Fall, initial encounter. A diagnosis of SDH (subdural hematoma) (HCC) was also pertinent to this visit. Past Medical History: has a past medical history of Depression. Past Surgical History: has no past surgical history on file. Assessment Performance deficits / Impairments: Decreased functional mobility ;Decreased endurance;Decreased ADL status;Decreased balance;Decreased high-level IADLs;Decreased strength;Decreased ROM Prognosis: Good Decision Making: Medium Complexity REQUIRES OT FOLLOW-UP: Yes Activity Tolerance Activity Tolerance: Patient limited by pain;Patient Tolerated treatment well;Patient limited by fatigue Activity Tolerance Comments: Dizziness Plan Occupational Therapy Plan Times Per Week: 3-5x Restrictions Restrictions/Precautions Restrictions/Precautions: General Precautions, Fall Risk Required Braces or Orthoses?: No Position Activity Restriction Other position/activity restrictions: CTLS cleared. Nondisplaced nondepressed fracture running vertically down the inferior right parietal skull. SBP goal<140 Subjective General Patient assessed for rehabilitation services?: Yes Family / Caregiver Present: No Diagnosis: SDH, Fall at concert-[facility] Subjective Subjective: 7/10 H/A, repositioning provided, low lighting General Comment Comments: RN approved therapy session Objective Safety Devices Type of Devices: Patient at risk for falls;Gait belt;Nurse notified;Call light within reach;Left inchair Restraints Restraints Initially in Place: No Bed Mobility Training Bed Mobility Training: Yes Overall Level of Assistance: Minimum assistance;Assist X1 Supine to Sit: Minimum assistance;Assist X1 Scooting: Minimum assistance;Assist X1 Balance Sitting: Impaired (Sitting EOB, SBA-min A R lateral lean with out B UE support. Sat EOB ~50 minutes, SBA with min A needed 4 times while out B UE support. FMC activity to R hand x 10 reps 3 sets 3 exs. Weight bearing via R elbow/hand 2 minutes each, 2 times) Standing: Impaired (Min A R lateral lean. RW for support.) Transfer Training Transfer Training: Yes Overall Level of Assistance: Minimum assistance;Assist X1 Interventions: Safety awareness training;Tactile cues;Verbal cues (Cues for hand placement, RW, slow moving, EOB<->stand 3 times->recliner. Min A x 1 high head/R ear pain) Sit to Stand: Minimum assistance;Assist X1;Additional time Stand to Sit: Minimum assistance;Assist X1;Additional time Stand Pivot Transfers: Minimum assistance;Assist X1;Additional time Gait Overall Level of Assistance: (Pt. took ~5 steps to recliner chair.) ADL Grooming: Setup;Increased time to complete;Stand by assistance;Maximum assistance Grooming Skilled Clinical Factors: Sitting EOB, pt. encouraged to use R UE. SBA overall + cues for tech to complete action of brushing teeth/washing face. Max A to wash and brush hair d/t fatigue/R side weakness and H/A. UE Bathing: Setup;Increased time to complete;Contact guard assistance;Minimal assistance UE Bathing Skilled Clinical Factors: Sitting EOB, min A for back, CGA for front. LE Bathing: Setup;Increased time to complete;Minimal assistance LE Bathing Skilled Clinical Factors: Bathe tops of B LEs at CGA, Min A to maintain balance while bathing priscilla area and bottom using RW for support UE Dressing: Setup;Increased time to complete;Contact guard assistance UE Dressing Skilled Clinical Factors: Doff/don gown sitting EOB, CGA + increased time and effort. LE Dressing: Setup;Increased time to complete;Minimal assistance LE Dressing Skilled Clinical Factors: Don B socks- sitting EOB, edu on 4 figure tech d/t high pain in head with movement. Additional Comments: Pt. demo F tolerance to ADL activity. Slow moving, needing lots of breaks d/t high pain in R side of head/ R ear. Cognition Overall Cognitive Status: WFL Orientation Overall Orientation Status: Within Functional Limits Orientation Level: Oriented X4 Education Given To: Patient Education Provided: Role of Therapy;Plan of Care;ADL Adaptive Strategies;Transfer Training Education Method: Verbal Barriers to Learning: Vision;Hearing Education Outcome: Verbalized understanding;Continued education needed;Demonstrated understanding AM-PAC Score AM-PAC Inpatient Daily Activity Raw Score: 17 (02/17/23 155) AM-PAC Inpatient ADL T-Scale Score : 37.26 (02/17/23 155) ADL Inpatient CMS 0-100% Score: 50.11 (02/17/23 155) ADL Inpatient CMS G-Code Modifier : CK (02/17/231552) Goals Short Term Goals Time Frame for Short Term Goals: Pt will by discharge Short Term Goal 1: demo good safety awareness during func mob around room at CGA and using LRD PRN Short Term Goal 2: demo ADL UB bathing/dressing activity at mod I with setup provided Short Term Goal 3: demo ADL LB bathing/dressing activity at SBA with setup provided, increased time, AE PRN Short Term Goal 4: identify 2 non-pharm, pain-relieving techniques with 1 cue Short Term Goal 5: demo FMC func activity using RUE only for 10 min+ with <2 errors Therapy Time Individual Concurrent Group Co-treatment Time In 1425 Time Out 1540 Minutes 75 Timed Code Treatment Minutes: 75 Minutes FREDDY Raymond/Aparna * Jt Corbin MD - 02/17/2023 3:22 PM EDT Images from the original note were not included. PROGRESS NOTE PATIENT NAME: Felisa Jones DATE: 02/17/2023 HD: # 3 Patient Active Problem List Diagnosis SDH (subdural hematoma) (HCC) DIAGNOSIS AND PLAN Sdh sah Mild tbi Post concussive syndrome Difficulty getting around r/t concussive syndrome Ot pt motrin tylenol Robaxin muscle pain She is not ready for dc home today but improved Rehab candidate OBJECTIVE VITALS: Vitals: 02/17/23 0738 BP: 124/71 Pulse: 51 Resp: 16 Temp: 97.7 F (36.5 C) SpO2: 97% Physical Exam Constitutional: Appearance: She is ill-appearing. HENT: Mouth/Throat: Mouth: Mucous membranes are dry. Cardiovascular: Rate and Rhythm: Normal rate. Pulmonary: Effort: Pulmonary effort is normal. Abdominal: Palpations: Abdomen is soft. Musculoskeletal: General: No deformity. Cervical back: No rigidity. Skin: Capillary Refill: Capillary refill takes less than 2 seconds. Neurological: Mental Status: She is alert. GCS: GCS eye subscore is 4. GCS verbal subscore is 5. GCS motor subscore is 6. Comments: Dizzy and nauseated with movement Tolerates when in bed LAB: CBC: Recent Labs 02/15/23 0425 WBC 6.1 HGB 11.1* HCT 35.3* MCV 92.4 PLT 224 BMP: Recent Labs 02/15/23 0425 NA 137 K 4.0 CL 108* CO2 20 BUN 5* CREATININE 0.44* GLUCOSE 103* Attestation signed by Jt Corbin MD I personally evaluated the patient and directed the medical decision making with Resident/SULTANA afterthe physical/radiologic exam and laboratory values were reviewed and confirmed. Jt Corbin MD * FINN Ogden - 02/17/2023 12:48 PM EDT Speech Language Pathology [facility] Cognitive Treatment Note Date: 02/17/2023 Patient s Name: Felisa Jones Diagnosis: Patient Active Problem List Diagnosis Code SDH (subdural hematoma) ([facility]) S06.5XAA Pain: 6/10 at beginning of session, 8/10 at end. Pain reported to RN. Cognitive Treatment Treatment time: 2552-9066 Subjective: [x] Alert [x] Cooperative [] Confused [] Agitated [] Lethargic Objective/Assessment: Recall: Delayed Recall-Related Words: 4/6 increased to 6/6 with min-mod cues, Immediate Recall 5 Units: 2/5 increased to 3/5 with repetition Problem Solving/Reasoning: Category Members-[place] Generation: 14/20 increased to 20/20 with min cues, Stating Situational Problems: 4/8 increased to 8/8 with min-mod cues, Opposites: 7/8 increasedto 8/8 with min cues, Multiple Definitions: /12 increased to 12/12 with mod cues Other: Pt with a headache during session, but persistent with therapy. Pt receptive to cues and feedback during the session. Plan: [x] Continue ST services [] Discharge from ST: Discharge recommendations: [x] Further therapy recommended at discharge.The patient should be able to tolerate at least 3 hours of therapy per day over 5 days or 15 hours over 7 days. [] Further therapy recommended at discharge. [] No therapy recommended at discharge. Completed by Rosina Lugo Foreign Student Adviser Clinician Co-signed by Sultana Lema M.A.CCC/PRESSURE TESTER * José Miguel Paulino, OT - 02/16/2023 11:03 AM EDT Occupational Therapy Facility/Department: [address] ONC/MED SURG Occupational Therapy Initial Assessment Name: Felisa Jones : 1985 Date of Service: 02/16/2023 Discharge Recommendations: Further therapy recommended at discharge.The patient should be able to tolerate at least 3 hours of therapy per day over 5 days or 15 hours over 7 days. This patient may benefit from a Physical Medicine and Rehab consult. Patient would benefit from continued therapy after discharge OT Equipment Recommendations Equipment Needed: Yes Mobility Devices: Walker;ADL Assistive Devices Walker: Rolling ADL Assistive Devices: Transfer Tub Bench;Bariatric Program Coordinator;Sock-Aid Hard;Long-handled Sponge;Long-handled Shoe Horn;Toileting - Raised Toilet Seat with arms Patient Diagnosis(es): The primary encounter diagnosis was Fall, initial encounter. A diagnosis of SDH (subdural hematoma) (HCC) was also pertinent to this visit. Past Medical History: has no past medical history on file. Past Surgical History: has no past surgical history on file. Assessment Performance deficits / Impairments: Decreased functional mobility ;Decreased endurance;Decreased ADL status;Decreased balance;Decreased high-level IADLs;Decreased strength;Decreased ROM Prognosis: Good Decision Making: Medium Complexity REQUIRES OT FOLLOW-UP: Yes Activity Tolerance Activity Tolerance: Patient limited by pain;Treatment limited secondary to medical complications (free text) Activity Tolerance Comments: Dizziness Plan Occupational Therapy Plan Times Per Week: 3-5x Restrictions Restrictions/Precautions Restrictions/Precautions: General Precautions, Fall Risk Required Braces or Orthoses?: No Position Activity Restriction Other position/activity restrictions: CTLS cleared. Nondisplaced nondepressed fracture running vertically down the inferior right parietal skull. SBP goal<140 Subjective General Patient assessed for rehabilitation services?: Yes Family / Caregiver Present: No Diagnosis: SDH, Fall at concert-[facility] Subjective Subjective: 7/10 H/A per pt, It feels like my head is in a vice General Comment Comments: RN approved therapy session Social/Functional History Social/Functional History Lives With: Family (5 children, oldest age 17 yo.) Type of Home: House Home Layout: Two level (Sleeps on 2nd floor) Home Access: Level entry Bathroom Shower/Tub: Tub/Shower unit Bathroom Toilet: Standard Bathroom Accessibility: Accessible Home Equipment: Cane (not using at baseline) Has the patient had two or more falls in the past year or any fall with injury in the past year?: No Receives Help From: Family ADL Assistance: Independent Homemaking Assistance: Independent Homemaking Responsibilities: Yes Ambulation Assistance: Independent Transfer Assistance: Independent Active Drawer In: Yes Mode of Transportation: SUV 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 Leisure & Hobbies: [place] Objective SpO2: 98 % O2 Device: None (Room air) Safety Devices Type of Devices: Patient at risk for falls;Gait belt;Nurse notified;Call light within reach;Left inbed Restraints Restraints Initially in Place: No Bed Mobility Training Bed Mobility Training: Yes Supine to Sit: Moderate assistance (Pt required assist at trunk progression) Sit to Supine: Moderate assistance Scooting: Stand-by assistance Balance Sitting: Intact (mod I-SUP sitting EOB, sat unsupported for 20 min this date, some nausea which went away) Standing: Impaired (2 major LOBs noted while standing, RW used and pt's BUE's slipped off during each LOB, pt educated on keeping eyes open but did not comply often, major fall risk) Transfer Training Transfer Training: Yes Sit to Stand: Moderate assistance (pt kept closing eyes, very bad H/A and dizziness with change in positions, RW used) Stand to Sit: Moderate assistance Gait Overall Level of Assistance: Other (comment) (JOSHUA, only marched in place, limited by pain/dizziness) AROM: Generally decreased, functional (B/L shoulder flexion limited to 90 degrees as it was increasing head/neck pain) PROM: Within functional limits Strength: Generally decreased, functional (Shoulders/elbows not tested d/t pain, hands 4+/5 grossly) Coordination: Generally decreased, functional (Pt missing nose with R index digit, had to use LUE to feed self toast for breakfast this am pt states, pt performed RUE FMC activity to improve this deficit) Tone: Normal Sensation: Impaired (RUE numbess-acute problem) ADL Feeding: Stand by assistance;Setup;Increased time to complete Grooming: Setup;Increased time to complete;Stand by assistance UE Bathing: Setup;Increased time to complete;Contact guard assistance LE Bathing: Setup;Increased time to complete;Minimal assistance UE Dressing: Setup;Increased time to complete;Contact guard assistance LE Dressing: Setup;Increased time to complete;Moderate assistance Toileting: Setup;Increased time to complete;Maximum assistance Additional Comments: Pt unsteady on feet d/t H/A and dizziness, pt with RUE coordination deficits observed, pt able to perform fair figure-4 technigue with BLE's with assist, pt kept closing eyes throughout session, pt performed FMC func activity using only RUE and small objects to improve coordination Vision Vision: Impaired Vision Exceptions: Wears glasses for distance Hearing Hearing: Exceptions to WFL (New tinnitus in R ear) Cognition Overall Cognitive Status: WFL Orientation Overall Orientation Status: Within Functional Limits Orientation Level: Oriented X4 Education Given To: Patient Education Provided: Role of Therapy;Plan of Care;ADL Adaptive Strategies;Transfer Training Education Method: Verbal Barriers to Learning: Vision;Hearing Education Outcome: Verbalized understanding AM-PAC Score AM-PAC Inpatient Daily Activity Raw Score: 16 (02/16/231047) AM-PAC Inpatient ADL T-Scale Score : 35.96 (02/16/231047) ADL Inpatient CMS 0-100% Score: 53.32 (02/16/231047) ADL Inpatient CMS G-Code Modifier : CK (02/16/231047) Goals Short Term Goals Time Frame for Short Term Goals: Pt will by discharge Short Term Goal 1: demo good safety awareness during func mob around room at CGA and using LRD PRN Short Term Goal 2: demo ADL UB bathing/dressing activity at mod I with setup provided Short Term Goal 3: demo ADL LB bathing/dressing activity at SBA with setup provided, increased time, AE PRN Short Term Goal 4: identify 2 non-pharm, pain-relieving techniques with 1 cue Short Term Goal 5: demo FMC func activity using RUE only for 10 min+ with <2 errors Therapy Time Individual Concurrent Group Co-treatment Time In 922 Time Out 0957 Minutes 34 Timed Code Treatment Minutes: 30 Minutes José Miguel Paulino OTR/L * Fabiola Heaton APRN - CORPORATE REAL ESTATE SPECIALIST - 02/16/2023 9:49 AM EDT Images from the original note were not included. PROGRESS NOTE PATIENT NAME: Felisa Jones DATE: 02/16/2023 HD: # 2 Patient Active Problem List Diagnosis SDH (subdural hematoma) (HCC) DIAGNOSIS AND PLAN Sdh sah Mild tbi Post concussive syndrome Difficulty getting around r/t concussive syndrome Ot pt Taking fioricet Will add motrin and continue tylenol Robaxin muscle pain Meclizine x 3 doses only Plan to drop fioricet if possible tomorrow Neurontin may make her more dizzy- hold off She is not ready for dc today If no improvement may be a rehab candidate, but for now will planon dc home 1-2 days OBJECTIVE VITALS: Vitals: 02/16/23 0715 BP: 123/79 Pulse: 59 Resp: 14 Temp: 98.4 F (36.9 C) SpO2: 98% Physical Exam Constitutional: Appearance: She is ill-appearing. HENT: Mouth/Throat: Mouth: Mucous membranes are dry. Cardiovascular: Rate and Rhythm: Normal rate. Pulmonary: Effort: Pulmonary effort is normal. Abdominal: Palpations: Abdomen is soft. Musculoskeletal: General: No deformity. Cervical back: No rigidity. Skin: Capillary Refill: Capillary refill takes less than 2 seconds. Neurological: Mental Status: She is alert. GCS: GCS eye subscore is 4. GCS verbal subscore is 5. GCS motor subscore is 6. Comments: Dizzy and nauseated with movement Tolerates when in bed LAB: CBC: Recent Labs 02/14/235202/14/23 0350 02/15/23 0425 WBC 6.9 11.2 6.1 HGB 11.1* 11.9 11.1* HCT 34.6* 38.6 35.3* MCV 92.3 94.4 92.4 PLT 234 238 224 BMP: Recent Labs 02/14/235202/14/23 0350 02/15/23 0425 NA 138 134* 137 K 2.8* 3.4* 4.0 CL 106 103 108* CO2 18* 15* 20 BUN 8 6 5* CREATININE 0.45* 0.36* 0.44* GLUCOSE 80 105* 103* * Delmer Muhammad, PT - 02/15/2023 4:23 PM EDT Physical Therapy Facility/Department: [address] ONC/MED SURG Physical Therapy Initial Assessment Name: Felisa Jones : 1985 Date of Service: 02/15/2023 No chief complaint on file. Discharge Recommendations: Further therapy recommended at discharge. PT Equipment Recommendations Equipment Needed: No Patient Diagnosis(es): The primary encounter diagnosis was Fall, initial encounter. A diagnosis of SDH (subdural hematoma) (HCC) was also pertinent to this visit. Past Medical History: has no past medical history on file. Past Surgical History: has no past surgical history on file. Assessment Body Structures, Functions, Activity Limitations Requiring Skilled Therapeutic Intervention: Decreased functional mobility ;Decreased endurance;Increased pain;Decreased balance;Decreased strength;Decreased ROM;Vestibular Impairment Assessment: Pt CGA in sit to stand, modA to maintain standing balance. Unable to assess ambulation safely d/t dizziness. Pt required increased time to perform mobility at this time d/t severe pain inthe head. Therapy Prognosis: Good Decision Making: Medium Complexity Requires PT Follow-Up: Yes Activity Tolerance Activity Tolerance: Patient limited by pain;Other (comment) Activity Tolerance Comments: Pt primarily limited by dizziness in standing, bed mobility impaired by pain in head. Plan Physcial Therapy Plan General Plan: (5x/wk) Current Treatment Recommendations: Strengthening, Balance training, Functional mobility training, Transfer training, Endurance training, Gait training, Stair training, Neuromuscular re-education, Home exercise program, Safety education & training, Patient/Caregiver education & training, Equipment evaluation, education, & procurement, Therapeutic activities Safety Devices Type of Devices: All fall risk precautions in place, Patient at risk for falls, Gait belt, Nurse notified, Call light within reach, Left in bed Restraints Restraints Initially in Place: No Restrictions Restrictions/Precautions Restrictions/Precautions: General Precautions Required Braces or Orthoses?: No Position Activity Restriction Other position/activity restrictions: CTLS cleared. Nondisplaced nondepressed fracture running vertically down the inferior right parietal skull. Subjective General Chart Reviewed: Yes Patient assessed for rehabilitation services?: Yes Response To Previous Treatment: Not applicable Family / Caregiver Present: Yes (Daughters) Follows Commands: Within Functional Limits General Comment Comments: RN and pt agreeable to PT. pt alert in bed upon arrival. Subjective Subjective: Pt reports severe pain in R head, localizes to skull fx site. Pt also reports pain in Rshoulder and R hand, does not quantify pain. Social/Functional History Social/Functional History Lives With: Family (5 children, oldest age 17 yo.) Type of Home: House Home Layout: Two level (Sleeps on 2nd floor) Home Access: Level entry Bathroom Shower/Tub: Tub/Shower unit Bathroom Toilet: Standard Bathroom Accessibility: Accessible Home Equipment: Cane Has the patient had two or more falls in the past year or any fall with injury in the past year?: No Receives Help From: Family ADL Assistance: Independent Homemaking Assistance: Independent Homemaking Responsibilities: Yes Ambulation Assistance: Independent Transfer Assistance: Independent Active Drawer In: Yes Mode of Transportation: 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 AROM LUE (degrees) LUE AROM : WFL Strength RLE Strength RLE: WFL Comment: Hip flexion MMT deferred d/t quanity of pain reproduced w/ L hip flexion MMT. Knee and ankle grossly 4/5 Strength LLE Strength LLE: WFL Comment: grossly 4/5 Strength RUE Strength RUE: Exception Comment: MMT deferred to quantity of pain in Hand, shoulder, and head. Strength LUE Comment: MMT deferred d/t pain. Strength Other Other: Construction Equipment Operator strength noticably greater on L compared to R. Bed mobility Supine to Sit: Stand by assistance Sit to Supine: Stand by assistance Bed Mobility Comments: Increased time to perform d/t pain, lethargy. Transfers Sit to Stand: Contact guard assistance Stand to Sit: Contact guard assistance Comment: Performed w/out AD. Upon standing pt reports dizziness that prohibits ambulation. Dizziness would not subside w/ prolonged standing, attempted 2 times w/ consistent outcomes. Pt required to be seated d/t increased dizziness and postural sway requiring process description writer to assist standing balance to prevent LOB. Ambulation Comments: Unsafe to attempt d/t dizziness. Balance Posture: Good Sitting - Static: Fair;+ Sitting - Dynamic: Fair;+ Standing - Static: Poor;+ Comments: Standing balance assessed w/out AD. Balance initially CGA, progressed to ModA w/ prolonged standing and worsening dizziness. AM-PAC Score AM-PAC Inpatient Mobility Raw Score : 14 (02/15/23 162) AM-PAC Inpatient T-Scale Score : 38.1 (02/15/231622) Mobility Inpatient CMS 0-100% Score: 61.29 (02/15/231622) Mobility Inpatient CMS G-Code Modifier : CL (02/15/23 1623) Goals Short Term Goals Time Frame for Short Term Goals: 10 visits Short Term Goal 1: Pt will be IND in all bed mobility tasks Short Term Goal 2: Pt will be IND in transfers Short Term Goal 3: Pt will amb 300' IND Short Term Goal 4: Pt will amb 1 flight of stairs Iesha w/ unilateral railing. Education Patient Education Education Given To: Patient Education Provided: Role of Therapy;Plan of Care Education Method: Demonstration;Verbal Barriers to Learning: None Education Outcome: Verbalized understanding;Demonstrated understanding Therapy Time Individual Concurrent Group Co-treatment Time In 1531 Time Out 1556 Minutes 25 Timed Code Treatment Minutes: 17 Minutes Delmer Muhammad PT * Ashia Womack RN - 02/15/2023 2:46 PM EDT Patient arrived to unit and is resting in bed. Oriented to room and all needs met. Family present at bedside. No signs of acute distress noted. * Dottie Cuello MD - 02/15/2023 2:26 PM EDT Images from the original note were not included. ICU PROGRESS NOTE PATIENT NAME: Felisa Jones DATE: 02/15/2023 PRIMARY CARE PHYSICIAN: No primary care provider on file. HD: # 1 ASSESSMENT Patient Active Problem List Diagnosis SDH (subdural hematoma) (HCC) MEDICAL DECISION MAKING AND PLAN Neuro Skull fx, SDH NSG consult Repeat CTH stable MMPT Pt takes adderall and zoloft - resume zoloft 2. CV RRR 3. Pulm Clear bilaterally 4. GI/Nutrition Pepcid Regular diet 5. Renal/lytes Good UOP DC external webb 6. Heme Hgb stable 7. Endocrine BG WNL, no insulin 8. Musculoskeletal Spine cleared. PT/OT today. 9. Skin Wound care for abrasions 10. Micro No concerns 11. Family/dispo Floor 12. Lines PIVs, PROPHYLAXIS: Stress ulcer: H2 arjun VTE: Lovenox 30 BID SUBJECTIVE Felisa Jones is a 37 y.o. female that presented to the Emergency Department following head injury, found down with hematoma to head and abrasion with bleeding. ICU for BIG3. Spine cleared by neurology. No intervention planned. OBJECTIVE VITALS: Temp: Temp: 97.9 F (36.6 C)Temp Av.1 F (36.7 C) Min: 97.9 F (36.6 C) Max: 98.3 F (36.8C) BP Systolic (24hrs), Av , Min:99 , Max:129 Diastolic (24hrs), Av, Min:52, Max:93 Pulse Pulse Av.3 Min: 59 Max: 76 Resp Resp Av.6 Min: 12 Max: 19 Pulse ox SpO2 Av.4 %Min: 96 % Max: 100 % General appearance: Somnolent, opens eyes when speaking loudly. Head: hematoma and abrasions to right temporal area Eyes: conjunctivae/corneas clear. PERRL, EOM's intact. Fundi benign. Ears: hemotympanum L ear, normal TM R ear Neck: bruising to anterior neck. mobility improved Back: symmetric, no step-off, no obvious injury. Lungs: clear to auscultation bilaterally Heart: RRR Drain/tube output: LAB: CBC: Recent Labs 02/14/23 0053 02/14/23 0350 02/15/23 0425 WBC 6.9 11.2 6.1 HGB 11.1* 11.9 11.1* HCT 34.6* 38.6 35.3* MCV 92.3 94.4 92.4 PLT 234 238 224 BMP: Recent Labs 02/14/23 0053 02/14/23 0350 02/15/23 0425 NA 138 134* 137 K 2.8* 3.4* 4.0 CL 106 103 108* CO2 18* 15* 20 BUN 8 6 5* CREATININE 0.45* 0.36* 0.44* GLUCOSE 80 105* 103* Radiology: There is an acute subdural hematoma at along the left frontal parietal margin coursing down to the middle cranial fossa with a maximum thickness of 4-5 mm. Does not cause a significant compression of the brain or midline shift. There is a nondisplaced nondepressed fracture running vertically down the inferior right parietal skull into the anterior right temporal skull and anterior edge of the middle cranial fossa. Appears to spare the sphenoid sinus etienne. Spares the right mastoid air cells as well. Surprisingly no subdural or epidural hematoma underlying the right skull fracture. Dottie Cuello MD 02/15/23, 2:37 PM Associated attestation - Geovani Contreras MD - 02/22/2023 11:57 AM EDT I personally evaluated the patient and directed the medical decision making with Resident/SULTANA afterthe physical/radiologic exam and laboratory values were reviewed and confirmed. ANM * Rosina Lugo - 02/15/2023 1:42 PM EDT PRESSURE TESTER ALL NOTES Facility/Department: [facility] CAR 1- SICU Initial Speech/Language/Cognitive Assessment NAME: Felisa Jones : 1985 ADMISSION DATE: 02/14/2023 ADMITTING DIAGNOSIS: has SDH (subdural hematoma) (HCC) on their problem list. Date of Eval: 02/15/2023 Evaluating Therapist: Rosina Lugo Primary Complaint: Felisa Jones is a 37 y.o. female that presented to the Emergency Department following head injury, found down with hematoma to head and abrasion with bleeding Pain: Pain Assessment Pain Assessment: None - Denies Pain Pain Level: 0 Patient's Stated Pain Goal: 0 - No pain Pain Location: Head, Elbow, Leg Pain Orientation: Right Pain Descriptors: Aching, Discomfort Functional Pain Assessment: Prevents or interferes some active activities and ADLs Pain Type: Acute pain Pain Frequency: Continuous Pain Onset: On-going Non-Pharmaceutical Pain Intervention(s): Environmental changes, Rest, Emotional support Response to Pain Intervention: Patient satisfied Side Effects: No reported side effects Vision/ Hearing Vision Vision: Within Functional Limits Hearing Hearing: Within functional limits Assessment: Pt presents with moderate cognitive deficits characterized by difficulties with immediate/delayed recall, verbal reasoning, and category member generation. Pt with increased processing time during evaluation and notes it feels like my brain's moving through quicksand. Pt. Presents with no dysarthria, no O/M deficits at this time. ST to follow up and provide treatment to address noted deficits. Education provided. Further therapy recommended at discharge. Recommendations: Recommendations Requires PRESSURE TESTER Intervention: Yes Patient Education: Yes Patient Education Response: Verbalizes understanding Frequency: 3-5x/week Plan: Speech Therapy Prognosis Prognosis: Fair Individuals consulted Consulted and agree with results and recommendations: Patient Goals: Short Term Goals Goal 1: Pt will recall 3-5 units with and without distraction with 90% accuracy. Goal 2: Pt will utilize memory strategies to aid in recall Goal 3: Pt will complete verbal reasoning tasks with 90% accuracy. Goal 4: Pt will generate 6-8 members of a category with 90% accuracy. Patient/family involved in developing goals and treatment plan: Yes Subjective: Previous level of function and limitations: Independent Social/Functional History Lives With: Family Vision Vision: Within Functional Limits Hearing Hearing: Within functional limits Objective: Oral Motor Labial: No impairment Lingual: No impairment Motor Speech Apraxic Characteristics: None Dysarthric Characteristics: None Intelligibility: No impairment Cognition: Orientation Overall Orientation Status: Within Normal Limits Attention Attention: Within Functional Limits Memory Memory: Exceptions to WFL (Immediate Recall: 3/3, 4/5, 3/3) Short-term Memory: (1/3 increased to 3/3 with min-mod cues, 2/3 increased to 3/3 with min cues) Problem Solving Problem Solving: Exceptions to WFL Verbal Reasoning Skills: (Word Associations: 4/4, Antonyms: 3/4, Inductive Reasonin/4 increasedto 4/4 with min cues, Similarities/Differences: 2/2, Word Deductions: 4/4) Sequencing: (4/4) Abstract Reasoning Abstract Reasoning: Exceptions to WFL Divergent Thinking: (02/19) Safety/Judgment Safety/Judgment: Exceptions to WFL Insight: (10/23) Flexibility of Thought: (12/26) Prognosis: Speech Therapy Prognosis Prognosis: Fair Individuals consulted Consulted and agree with results and recommendations: Patient Education: Patient Education: Yes Patient Education Response: Verbalizes understanding Therapy Time: Individual Concurrent Group Co-treatment Time In 1316 Time Out 1333 Minutes 17 Completed by Rosina Lugo Foreign Student Adviser Clinician Co-signed by Funmi Jaffe M.S., CCC/PRESSURE TESTER * GABRIELA Edward CNP - 02/14/2023 1:18 PM EDT Felisa Jones is alert and oriented.TLS precautions was examined. All images reviewed. Pt logged rolled. No tenderness or stepoffs noted. TLS is cleared. Pt able to sit up and ambulate. GABRIELA EDWARD CNP 02/14/2023 1:18 PM * FINN Yee - 02/14/2023 11:56 AM EDT [facility] Speech Language Pathology Date: 02/14/2023 Patient Name: Felisa Jones Date of : 1985 AGE: 37 y.o. Patient Not Available for Speech Therapy Due to: [] Testing [] Hemodialysis [] Cancelled by RN [] Surgery [] Intubation/Sedation/Pain Medication [] Medical instability [x] Other: busy getting cleaned up Next scheduled treatment: 02/15/26 Completed by: FINN Yee, M.Ed. [facility]-PRESSURE TESTER * José Miguel Paulino OT - 02/14/2023 7:24 AM EDT Images from the original note were not included. Occupational Therapy [facility] Occupational Therapy Not Seen Note DATE: 02/14/2023 NAME: Felisa Jones : 1985 Patient not seen this date for Occupational Therapy due to: Strict Bedrest: Next Scheduled Treatment: Attempt on 02/15 as appropriate. * Felisa Segura MD - 02/14/2023 2:40 AM EDT Images from the original note were not included. Trauma Tertiary Survey Admit Date: 02/14/2023 Hospital day 0 Fall SH No past medical history on file. Scheduled Meds: famotidine (PEPCID) injection 20 mg IntraVENous BID sodium chloride flush 5-40 mL IntraVENous 2 times per day polyethylene glycol 17 g Oral Daily levETIRAcetam 500 mg IntraVENous Q12H acetaminophen 1,000 mg Oral 3 times per day thiamine 100 mg IntraVENous Daily sertraline 25 mg Oral Daily oxyCODONE 5 mg Oral Once calcium gluconate 2,000 mg IntraVENous Once Continuous Infusions: sodium chloride 100 mL/hr at 02/14/23 0416 sodium chloride IVF @ 100 mL/hr PRN Meds: fentanyl, zofran Subjective: Patient has no complaint of pain. Slow to respond. Still intoxicated. Does not remember anything. Objective: Patient Vitals for the past 8 hrs: BP Temp Pulse Resp SpO2 Height Weight 02/14/23 0700 114/65 -- 69 15 100 % -- -- 02/14/23 0600 117/ 97.9 F (36.6 C) 69 18 99 % -- -- 02/14/23 0500 116/70 -- 77 17 97 % -- 158 lb 11.7 oz (72 kg) 02/14/23 0400 116/ 97.3 F (36.3 C) 73 16 100 % -- -- 02/14/23 0300 110/77 97.3 F (36.3 C) 57 17 100 % -- -- 02/14/23 0130 110/ -- 68 17 100 % -- -- 02/14/23 0115 118/78 -- 75 17 100 % -- -- 02/14/23 0100 115/81 -- 68 14 100 % -- -- 02/14/232 -- -- -- -- -- 5' 6 (1.676 m) 130 lb (59 kg) 02/14/2349 116 -- 71 18 100 % -- -- 02/14/2346 -- 97.2 F (36.2 C) -- -- -- -- -- 06/25/23 0046 116/71 -- 72 16 99 % -- -- I/O last 3 completed shifts: In: 0 Out: 1050 [Urine:1050] No intake/output data recorded. Radiology: There is an acute subdural hematoma at along the left frontal parietal margin coursing down to the middle cranial fossa with a maximum thickness of 4-5 mm. Does not cause a significant compression of the brain or midline shift. There is a nondisplaced nondepressed fracture running vertically down the inferior right parietal skull into the anterior right temporal skull and anterior edge of the middle cranial fossa. Appears to spare the sphenoid sinus etienne. Spares the right mastoid air cells as well. Surprisingly no subdural or epidural hematoma underlying the right skull fracture. PHYSICAL EXAM: GCS: 3 - Opens eyes to loud noise or command 6 - Follows simple motor commands 4 - Seems confused, disoriented Pupil size: Left 4 mm Right 4 mm Pupil reaction: Yes Wiggles fingers: Left Yes Right Yes Hand grasp: Left decreased Right decreased Wiggles toes: Left Yes Right Yes Plantar flexion: Left decreased Right decreased BP 114/65 Pulse 69 Temp 97.9 F (36.6 C) Resp 15 Ht 5' 6 (1.676 m) Wt 158 lb 11.7 oz (72 kg) SpO2 100% BMI 25.62 kg/m General appearance: Somnolent, opens eyes when speaking loudly. Head: hematoma and abrasions to right temporal area Eyes: conjunctivae/corneas clear. PERRL, EOM's intact. Fundi benign. Ears: hemotympanum L ear, normal TM R ear Neck: bruising to anterior neck. Back: symmetric, no step-off, no obvious injury. Lungs: clear to auscultation bilaterally Heart: RRR Spine: Spine Tenderness ROM Cervical 0 /10 Mobile Thoracic 0 /10 Normal Lumbar 0 /10 Normal Musculoskeletal Joint Tenderness Swelling ROM Right shoulder absent absent normal Left shoulder absent absent normal Right elbow absent absent normal Left elbow absent absent normal Right wrist absent absent normal Left wrist absent Present - some bruising normal Right hand grasp present present normal Left hand grasp present absent normal Right hip absent absent normal Left hip absent absent normal Right knee absent present normal Left knee absent absent normal Right ankle absent absent normal Left ankle absent absent normal Right foot absent absent normal Left foot absent absent normal CONSULTS: Neurosurgery PROCEDURES: None INJURIES: Right knee abrasion, right temporal hematoma, skull fracture, SDH Patient Active Problem List Diagnosis SDH (subdural hematoma) (HCC) Assessment/Plan: Neuro Skull fx, SDH NSG consult Repeat CTH in 8 Hrs. Pain management-Fentanyl 50 Q2 PRN Pt takes adderall and zoloft - resume zoloft CV RRR, order EKG Pulm Clear bilaterally GI/Nutrition Pepcid NPO pending NS recs Renal/lytes Monitor I/O, replace electrolytes as needed Heme Hgb 11.1, repeat in AM Hold DVT prophylaxis 7. Endocrine 1. BG 80, re check in 4 hours. Musculoskeletal CTLS-neg on CT Skin Warm, dry, abrasion to R knee, bruising on anterior neck and abrasion to R scalp. Bruising on L thumb/wrist. Some dried blood on inner L thigh. Concerning for JAVY - patient does not remember what happened. Follow neck bruising Micro WBC 6.9, afebrile. Monitor temp Family/dispo ICU Lines PIVs, external webb. PROPHYLAXIS: Stress ulcer: H2 arjun VTE: SCDs DISPOSITION: Continue ICU * Callie Mcintosh - 02/14/2023 12:58 AM EDT [place]IT[place] C[place] [facility] [place]Tra[place] PATIENT NAME: Felisa Jones Shift date: 02/13/2023 Shift day: Wednesday Shift # 3 Room # TRAUMA B Name: Felisa Jones Age: 37 y.o. Gender: female Rastafarian: Unknown Place of zoroastrianism: Unknown Trauma/Incident type: Adult Trauma Priority Admit Date & Time: 02/14/2023 12:28 AM TRAUMA NAME: TERESITABHAVNAGALE ADVANCE DIRECTIVES IN CHART? No NAME OF DECISION MAKER: Unknown RELATIONSHIP OF DECISION MAKER TO PATIENT: Unknown PATIENT/EVENT DESCRIPTION: Felisa Jones is a 37 y.o. female who arrived via [facility] to TRAUMA B and was paged out as an Adult Trauma Priority due to a Fall. Patient arrived with +ETOH. Patient was altered while clinical genetics laboratory chief was present in room. Pt to be admitted to 1023/1023-08. SPIRITUAL [id number]: Hockey Instructor responded to page and gathered patient information outside room. Hockey Instructor shared patient'sinformation with ED Registration. Patient's next of kin was not able to be identified. Hockey Instructor located patient's emergency contact from patient's cell phone, her sister, Lottie Schrader, ([phone]). Hockey Instructor made several attempts to contact her sister, with no success. Hockey Instructor later reached patient's sister utilizing patient's cell phone. Hockey Instructor facilitated medical update for patient's sister, by phone, as she resides in [place]. Hockey Instructor shared unit phone number and shared patient's TICU room number. Patient's teenage daughter, Thu ([phone]), was also included in call. Patient's sister thanked clinical genetics laboratory chief for call and support. Hockey Instructor shared patient's sister's information with patient's bedside nurse. PATIENT BELONGINGS: With patient ANY BELONGINGS OF SIGNIFICANT VALUE NOTED: N/A REGISTRATION STAFF NOTIFIED? Yes WHAT IS YOUR SPIRITUAL CARE PLAN FOR THIS PATIENT?: [facility]ains can make follow-up visit, per request. Chaplains can be reached 15/03 via [employer]. 02/14/23 0058 Encounter Summary Service Provided For: Family;Patient not available Referral/Consult From: Multi-disciplinary team (Adult Trauma Priority) Support System Family members Last Encounter 02/13/23 Complexity of Encounter Moderate Begin Time 0058 End Time 0142 Total Time Calculated 44 min Encounter Type Initial Screen/Assessment Crisis Type Trauma Spiritual/Emotional needs Type Spiritual Support Assessment/Intervention/Outcome Assessment Anxious;Fearful Intervention Sustaining Presence/Ministry of presence Outcome Coping;Receptive Plan and Referrals Plan/Referrals Continue to visit, (comment) (as needed) . Spiritual Care Department [facility] [phone] documented in this encounter[facility] Discharge instructions* Discharge Instructions* Karen Watkins RN - 02/15/2023 11:04 AM EDT Images from the original note were not included. Head Injury Discharge Instructions Thank you for choosing [facility] and [facility] for your recovery needs. The following instructions will help to ensure your comfort and that you are wellprepared for your recovery. Follow-up Visit: The office is located at: [facility] [address], [address], main floor [place] [phone] [x] Please have a CT scan of your head done prior to this appointment. Please also call your primary care physician to schedule an appointment for further evaluation and care. Diet: You may resume your regular diet as tolerated. Activity: You should not be left alone. Have a relative or friend stay with you until they think you are backto normal. Do not drive or operate machinery until you are seen in the office. Avoid strenuous activities. No lifting or straining. Pain Management: Do not take aspirin, NSAID medications (Ibuprofen, Naprosyn, etc.) or Gonzalez-2 inhibitors (Celebrex, etc.). You may be given a prescription for pain medication. Try not to take the pain medicine unless you need to. If you feel that you do not need something that strong, you may use regular or extra-strength Tylenol instead. DO NOT drink alcohol, drive or operate heavy machinery while taking your pain medications. YOU SHOULD CALL THE OFFICE AT [phone] IF YOU HAVE ANY OF THE FOLLOWING: Worsening headaches or headaches that feel different. Persistent nausea and/or vomiting. Changes in mental status such as confusion, slurred speech, increased sleepiness. Any new neurologic sensory or motor deficits (weakness, numbness) Seizures Loss of memory. Dizziness or fainting. Trouble walking or staggering. Blurry vision, double vision or other problems with your eyesight. Bleeding or clear liquid drainage from your ears or nose. Very sleepy (more than expected) or hard to wake up. Unusual sounds in the ear. Any new or increased symptoms. *If you are unable to contact someone at the office and your symptoms persist or increase, call 911or go to the emergency department. Discharge Instructions for Trauma What to do after you leave the hospital: You sustained a head injury during your recent traumatic event. Please refrain from any activities that could put you at risk for further injury to your head as you heal over the next 3-4 weeks (suchas ladders, contact sports, 4- wright/ATV activities, etc.) You received a cognitive evaluation while hospitalized-follow all instructions given by the speech-language pathologist. For additional support and resources for you and your family contact the [facility] at [phone]. This center offers additional therapy, support groups, education and other resources at no cost. The center is located at [address] [place] [address]. You can also visit www.[facility].org for more information. For resources transitioning back to the community following your trauma, visit [email or web address] General questions or concerns please call the [facility] at [phone]. If needed, the clinic fax number is [phone]. Trauma is a life-threatening condition. Your doctor will want to closely monitor you. Be sure to goto all of your appointments. * Discharge Instr - EUGENIO* Linda Drake RN - 02/18/2023 8:23 AM EDT Continuity of Care Form Patient Name: Felisa Jones : 1985 Admit date: 02/14/2023 Discharge date: 02/22/2023 Code Status Order: Full Code Advance Directives: Admitting Physician: Felisa Segura MD PCP: No primary care provider on file. Discharging Nurse: Linda Drake Discharging Hospital Unit/Room#: 0433/0433-01 Discharging Unit Emergency Contact: Extended Emergency Contact Information Primary Emergency Contact: MacrinaLottie Mobile Relation: Brother/Sister Secondary Emergency Contact: LaraMary Mobile Relation: Parent Past Surgical History: No past surgical history on file. Immunization History: There is no immunization history on file for this patient. Active Problems: Patient Active Problem List Diagnosis Code SDH (subdural hematoma) ([facility]) S06.5XAA Fall W19.XXXA Isolation/Infection: Isolation No Isolation Patient Infection Status None to display Nurse Assessment: Last Vital Signs: BP 112/64 Pulse 56 Temp 97.6 F (36.4 C) (Oral) Resp 18 Ht 5' 6 (1.676 m) Wt 158 lb 11.7 oz (72 kg) SpO2 98% BMI 25.62 kg/m Last documented pain score (0-10 scale): Pain Level: 7 Last Weight: Wt Readings from Last 1 Encounters: 02/14/23 158 lb 11.7 oz (72 kg) Mental Status: oriented, alert, coherent, logical, thought processes intact, and able to concentrate and follow conversation IV Access: - None Nursing Mobility/ADLs: Walking Assisted Transfer Assisted Bathing Assisted Dressing Independent Toileting Assisted Feeding Independent Server Independent Med Delivery whole Wound Care Documentation and Therapy: Elimination: Continence: Bowel: Yes Bladder: Yes Urinary Catheter: None Colostomy/Ileostomy/Ileal Conduit: No Date of Last BM: 02/21/2023 Intake/Output Summary (Last 24 hours) at 02/18/2023 0823 Last data filed at 02/17/2023 2240 Gross per 24 hour Intake -- Output 1200 ml Net -1200 ml I/O last 3 completed shifts: In: 900 [P.O.:900] Out: 2600 [Urine:2600] Safety Concerns: History of Falls (last 30 days) Impairments/Disabilities: None Nutrition Therapy: Current Nutrition Therapy: - Oral Diet: General Routes of Feeding: Oral Liquids: Thin Liquids Daily Fluid Restriction: no Last Modified Barium Swallow with Video (Video Swallowing Test): not done Treatments at the Time of Hospital Discharge: Respiratory Treatments: n/a Oxygen Therapy: is not on home oxygen therapy. Ventilator: - No ventilator support Rehab Therapies: Physical Therapy and Occupational Therapy Weight Bearing Status/Restrictions: No weight bearing restrictions Other Medical Equipment (for information only, NOT a DME order): walker Other Treatments: n/a Patient's personal belongings (please select all that are sent with patient): None RN SIGNATURE: CASE MANAGEMENT/SOCIAL WORK SECTION Inpatient Status Date: 02-14-2023 Readmission Risk Assessment Score: Readmission Risk Risk of Unplanned Readmission: 5 Discharging to Facility/ Agency Name: [facility] Address: Phone: Fax: Dialysis Facility (if applicable) Name: Address: Dialysis Schedule: Phone: 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 Update Admission H&P: No change in H&P PHYSICIAN SIGNATURE: [facility] Discharge instructions Patient Education 12/22/2022 12:05:29 Influenza, Adult, Fqre-dm-Dnma Influenza, Adult Influenza is also called the flu. It is an infection in the lungs, nose, and throat (respiratory tract). It spreads easily from person to person (is contagious). The flu causes symptoms that are like a cold, along with high fever and body aches. What are the causes? This condition is caused by the influenza virus. You can get the virus by: Breathing in droplets that are in the air after a person infected with the flu coughed or sneezed. Touching something that has the virus on it and then touching your mouth, nose, or eyes. What increases the risk? Certain things may make you more likely to get the flu. These include: Not washing your hands often. Having close contact with many people during cold and flu season. Touching your mouth, eyes, or nose without first washing your hands. Not getting a flu shot every year. You may have a higher risk for the flu, and serious problems, such as a lung infection (pneumonia),if you: Are older than 65. Are . Have a weakened disease-fighting system (immune system) because of a disease or because you are taking certain medicines. Have a long-term (chronic) condition, such as: ?Heart, kidney, or lung disease. ?Diabetes. ?Asthma. Have a liver disorder. Are very overweight (morbidly obese). Have anemia. What are the signs or symptoms? Symptoms usually begin suddenly and last 4 14 days. They may include: Fever and chills. Headaches, body aches, or muscle aches. Sore throat. Cough. Runny or stuffy (congested) nose. Feeling discomfort in your chest. Not wanting to eat as much as normal. Feeling weak or tired. Feeling dizzy. Feeling sick to your stomach or throwing up. How is this treated? If the flu is found early, you can be treated with antiviral medicine. This can help to reduce how bad the illness is and how long it lasts. This may be given by mouth or through an IV tube. Taking care of yourself at home can help your symptoms get better. Your doctor may want you to: Take ebyo-wps-qolmcln medicines. Drink plenty of fluids. The flu often goes away on its own. If you have very bad symptoms or other problems, you may be treated in a hospital. Follow these instructions at home: Activity Rest as needed. Get plenty of sleep. Stay home from work or school as told by your doctor. ?Do not leave home until you do not have a fever for 24 hours without taking medicine. ?Leave home only to go to your doctor. Eating and drinking Take an ORS (oral rehydration solution). This is a drink that is sold at pharmacies and stores. Drink enough fluid to keep your pee pale yellow. Drink clear fluids in small amounts as you are able. Clear fluids include: ?Water. ?Ice chips. ?Fruit juice mixed with water. ?Low-calorie sports drinks. Eat bland foods that are easy to digest. Eat small amounts as you are able. These foods include: ?Bananas. ?Applesauce. ?Rice. ?Lean meats. ?[place]. ?Crackers. Do not eat or drink: ?Fluids that have a lot of sugar or caffeine. ?Alcohol. ?Spicy or fatty foods. General instructions Take lits-dbo-zanmwue and prescription medicines only as told by your doctor. Use a cool mist humidifier to add moisture to the air in your home. This can make it easier for youto breathe. ?When using a cool mist humidifier, clean it daily. Empty water and replace with clean water. Cover your mouth and nose when you cough or sneeze. Wash your hands with soap and water often and for at least 20 seconds. This is also important afteryou cough or sneeze. If you cannot use soap and water, use alcohol-based hand tensioning machine operator. Keep all follow-up visits. How is this prevented? Get a flu shot every year. You may get the flu shot in late summer, fall, or winter. Ask your doctor when you should get your flu shot. Avoid contact with people who are sick during fall and winter. This is cold and flu season. Contact a doctor if: You get new symptoms. You have: ?Chest pain. ?Watery poop (diarrhea). ?A fever. Your cough gets worse. You start to have more mucus. You feel sick to your stomach. You throw up. Get help right away if you: Have shortness of breath. Have trouble breathing. Have skin or nails that turn a bluish color. Have very bad pain or stiffness in your neck. Get a sudden headache. Get sudden pain in your face or ear. Cannot eat or drink without throwing up. These symptoms may represent a serious problem that is an emergency. Get medical help right away. Call your local emergency services (911 in the [place] Do not wait to see if the symptoms will go away. Do not drive yourself to the hospital. Summary Influenza is also called the flu. It is an infection in the lungs, nose, and throat. It spreads easily from person to person. Take beek-ffc-eebadet and prescription medicines only as told by your doctor. Getting a flu shot every year is the best way to not get the flu. This information is not intended to replace advice given to you by your health care provider. Make sure you discuss any questions you have with your health care provider. Document Revised: 03/28/2021 Document Reviewed: 03/28/2021 AWID Patient Education 2022 [employer]. Follow Up Care 09/24/2022 09:32:17 With:BHARAT MOREJON FAAFP, Valdemar Garcia, DIANNE, PED [facility] [place] [address]- When:Within 3 Month(s) [facility] 04-30-2023 Evaluation note* Encounter Date Diagnosis Assessment Notes Treatment Notes Treatment Clinical Notes Nov, Contact with and (suspected) exposure to other viral communicable diseases (ICD-10 - Z20.828) Nov, Influenza A (ICD-10 - J10.1) Advised patient that rapid Influenza A test was positive, COVID/Influenza B test negative. Will send in rx of Tamiflu and Bromfed to use as directed. Encouraged supportive care, including Tylenol/Motrin as needed for body aches/fever, increase fluids and rest, use of cool mist humidifier. Follow-up with PCP to advise of positive result and further management need. Advised to stay home from work/activities until fever free for 24 hours without use of antipyretic. Immediate eval if respiratory distress, SOB, difficulty breathing, severe headache and neck pain/stiffness, rash, abdominal pain, N/V, poor PO intake, dehydration, lethargy, or if any new or concerning symptoms arise. Patient verbalizes understanding and is agreeable to treatment plan. Patient left in stable condition. [facility] Other 02-02-2023 Hospital Discharge instructions Patient Education 09/24/2022 09:20:47 Attention Deficit Hyperactivity Disorder, Adult Attention Deficit Hyperactivity Disorder, Adult Attention deficit hyperactivity disorder (ADHD) is a mental health disorder that starts during childhood (neurodevelopmental disorder). For many people with ADHD, the disorder continues into the adult years. Treatment can help you manage your symptoms. What are the causes? The exact cause of ADHD is not known. Most experts believe genetics and environmental factors contribute to ADHD. What increases the risk? The following factors may make you more likely to develop this condition: Having a family history of ADHD. Being male. Being born to a mother who smoked or drank alcohol during . Being exposed to lead or other toxins in the womb or early in life. Being born before 37 weeks of (prematurely) or at a low weight. Having experienced a brain injury. What are the signs or symptoms? Symptoms of this condition depend on the type of ADHD. The two main types are inattentive and hyperactive-impulsive. Some people may have symptoms of both types. Symptoms of the inattentive type include: Difficulty paying attention. Making careless mistakes. Not following instructions. Being disorganized. Avoiding tasks that require time and attention. Losing and forgetting things. Being easily distracted. Symptoms of the hyperactive-impulsive type include: Restlessness. Talking too much. Interrupting. Difficulty with: ?Sitting still. ?Feeling motivated. ?Relaxing. ?Waiting in line or waiting for a turn. In adults, this condition may lead to certain problems, such as: Keeping jobs. Performing tasks at work. Having stable relationships. Being on time or keeping to a schedule. How is this diagnosed? This condition is diagnosed based on your current symptoms and your history of symptoms. The diagnosis can be made by a health care provider such as a primary care provider or a mental health director career. Your health care provider may use a symptom checklist or a behavior rating scale to evaluate your symptoms. He or she may also want to talk with people who have observed your behaviors throughout your life. How is this treated? This condition can be treated with medicines and behavior therapy. Medicines may be the best optionto reduce impulsive behaviors and improve attention. Your health care provider may recommend: Stimulant medicines. These are the most common medicines used for adult ADHD. They affect certain chemicals in the brain (neurotransmitters) and improve your ability to control your symptoms. A non-stimulant medicine for adult ADHD (atomoxetine). This medicine increases a neurotransmitter called norepinephrine. It may take weeks to months to see effects from this medicine. Counseling and behavioral management are also important for treating ADHD. Counseling is often usedalong with medicine. Your health care provider may suggest: Cognitive behavioral therapy (CBT). This type of therapy teaches you to replace negative thoughts and actions with positive thoughts and actions. When used as part of ADHD treatment, this therapy mayalso include: ?Coping strategies for organization, time management, impulse control, and stress reduction. ?Mindfulness and meditation training. Behavioral management. You may work with a personal health coach who is specially trained to help people with ADHD manage and organize activities and function more effectively. Follow these instructions at home: Medicines Take vbrh-zdm-aaczyus and prescription medicines only as told by your health care provider. Talk with your health care provider about the possible side effects of your medicines and how to manage them. Lifestyle Do not use drugs. Do not drink alcohol if: ?Your health care provider tells you not to drink. ?You are , may be , or are planning to become . If you drink alcohol: ?Limit how much you use to: ?0 1 drink a day for women. ?0 2 drinks a day for men. ?Be aware of how much alcohol is in your drink. In the [place] one drink equals one 12 oz bottle of beer (355 mL), one 5 oz glass of wine (148 mL), or one 1 oz glass of hard liquor (44 mL). Get enough sleep. Eat a healthy diet. Exercise regularly. Exercise can help to reduce stress and anxiety. General instructions Learn as much as you can about adult ADHD, and work closely with your health care providers to findthe treatments that work best for you. Follow the same schedule each day. Use reminder devices like notes, calendars, and phone apps to stay on time and organized. Keep all follow-up visits as told by your health care provider and therapist. This is important. Where to find more information A health care provider may be able to recommend resources that are available online or over the phone. You could start with: Attention Deficit Disorder Association (ADDA): www.add.org National [place] of Mental Health (NIM): www.nimh.nih.gov Contact a health care provider if: Your symptoms continue to cause problems. You have side effects from your medicine, such as: ?Repeated muscle twitches, coughing, or speech outbursts. ?Sleep problems. ?Loss of appetite. ?Dizziness. ?Unusually fast heartbeat. ?Stomach pains. ?Headaches. You are struggling with anxiety, depression, or substance abuse. Get help right away if you: Have a severe reaction to a medicine. If you ever feel like you may hurt yourself or others, or have thoughts about taking your own life,get help right away. You can go to the nearest emergency department or call: Your local emergency services (911 in the [place] A suicide crisis helpline, such as the National Suicide Prevention Lifeline at . Thisis open 24 hours a day. Summary ADHD is a mental health disorder that starts during childhood (neurodevelopmental disorder) and often continues into the adult years. The exact cause of ADHD is not known. Most experts believe genetics and environmental factors contribute to ADHD. There is no cure for ADHD, but treatment with medicine, cognitive behavioral therapy, or behavioralmanagement can help you manage your condition. This information is not intended to replace advice given to you by your health care provider. Make sure you discuss any questions you have with your health care provider. Document Released: 03/31/2018 Document Revised: 01/01/2020 Document Reviewed: 01/01/2020 AWID Patient Education 2020 [employer]. Follow Up Care 06/23/2022 09:45:13 With:BHARAT MOREJON FAAFP, Valdemar Garcia, DIANNE, PED Address: [place] [address]- When:Within 3 Month(s) [facility] 11-23-2022 Hospital Discharge instructions Patient Education 07/15/2022 12:57:15 Sinusitis, Adult Sinusitis, Adult Sinusitis is inflammation of your sinuses. Sinuses are hollow spaces in the bones around your face.Your sinuses are located: Around your eyes. In the middle of your forehead. Behind your nose. In your cheekbones. Mucus normally drains out of your sinuses. When your nasal tissues become inflamed or swollen, mucus can become trapped or blocked. This allows bacteria, viruses, and fungi to grow, which leads to infection. Most infections of the sinuses are caused by a virus. Sinusitis can develop quickly. It can last for up to 4 weeks (acute) or for more than 12 weeks (chronic). Sinusitis often develops after a cold. What are the causes? This condition is caused by anything that creates swelling in the sinuses or stops mucus from draining. This includes: Allergies. Asthma. Infection from bacteria or viruses. Deformities or blockages in your nose or sinuses. Abnormal growths in the nose (nasal polyps). Pollutants, such as chemicals or irritants in the air. Infection from fungi (rare). What increases the risk? You are more likely to develop this condition if you: Have a weak body defense system (immune system). Do a lot of swimming or diving. Overuse nasal sprays. Smoke. What are the signs or symptoms? The main symptoms of this condition are pain and a feeling of pressure around the affected sinuses.Other symptoms include: Stuffy nose or congestion. Thick drainage from your nose. Swelling and warmth over the affected sinuses. Headache. Upper toothache. A cough that may get worse at night. Extra mucus that collects in the throat or the back of the nose (postnasal drip). Decreased sense of smell and taste. Fatigue. A fever. Sore throat. Bad breath. How is this diagnosed? This condition is diagnosed based on: Your symptoms. Your medical history. A physical exam. Tests to find out if your condition is acute or chronic. This may include: ?Checking your nose for nasal polyps. ?Viewing your sinuses using a device that has a light (endoscope). ?Testing for allergies or bacteria. ?Imaging tests, such as an MRI or CT scan. In rare cases, a bone biopsy may be done to rule out more serious types of fungal sinus disease. How is this treated? Treatment for sinusitis depends on the cause and whether your condition is chronic or acute. If caused by a virus, your symptoms should go away on their own within 10 days. You may be given medicines to relieve symptoms. They include: ?Medicines that shrink swollen nasal passages (topical intranasal decongestants). ?Medicines that treat allergies (antihistamines). ?A spray that eases inflammation of the nostrils (topical intranasal corticosteroids). ?Rinses that help get rid of thick mucus in your nose (nasal saline washes). If caused by bacteria, your health care provider may recommend waiting to see if your symptoms improve. Most bacterial infections will get better without antibiotic medicine. You may be given antibiotics if you have: ?A severe infection. ?A weak immune system. If caused by narrow nasal passages or nasal polyps, you may need to have surgery. Follow these instructions at home: Medicines Take, use, or apply avxp-fbv-voinqxl and prescription medicines only as told by your health care provider. These may include nasal sprays. If you were prescribed an antibiotic medicine, take it as told by your health care provider. Do notstop taking the antibiotic even if you start to feel better. Hydrate and humidify Drink enough fluid to keep your urine pale yellow. Staying hydrated will help to thin your mucus. Use a cool mist humidifier to keep the humidity level in your home above 50%. Inhale steam for 10 15 minutes, 3 4 times a day, or as told by your health care provider. You can do this in the bathroom while a hot shower is running. Limit your exposure to cool or dry air. Rest Rest as much as possible. Sleep with your head raised (elevated). Make sure you get enough sleep each night. General instructions Apply a warm, moist washcloth to your face 3 4 times a day or as told by your health care provider.This will help with discomfort. Wash your hands often with soap and water to reduce your exposure to germs. If soap and water are not available, use hand tensioning machine operator. Do not smoke. Avoid being around people who are smoking (secondhand smoke). Keep all follow-up visits as told by your health care provider. This is important. Contact a health care provider if: You have a fever. Your symptoms get worse. Your symptoms do not improve within 10 days. Get help right away if: You have a severe headache. You have persistent vomiting. You have severe pain or swelling around your face or eyes. You have vision problems. You develop confusion. Your neck is stiff. You have trouble breathing. Summary Sinusitis is soreness and inflammation of your sinuses. Sinuses are hollow spaces in the bones around your face. This condition is caused by nasal tissues that become inflamed or swollen. The swelling traps or blocks the flow of mucus. This allows bacteria, viruses, and fungi to grow, which leads to infection. If you were prescribed an antibiotic medicine, take it as told by your health care provider. Do notstop taking the antibiotic even if you start to feel better. Keep all follow-up visits as told by your health care provider. This is important. This information is not intended to replace advice given to you by your health care provider. Make sure you discuss any questions you have with your health care provider. Document Released: 08/09/2006 Document Revised: 01/09/2019 Document Reviewed: 01/09/2019 AWID Patient Education 2020 [employer]. Follow Up Care 07/15/2022 12:19:53 With:BHARAT MOREJON FAAFP, Valdemar Garcia, DIANNE, PED Address: [address] [place] [address] [place] [address]- When: Unknown [facility] 07-21-2022 Hospital Discharge instructions Patient Education 03/12/2022 08:20:14 Recurrent Migraine Headache, Hzoo-zx-Gahk Recurrent Migraine Headache A migraine headache is very bad, throbbing pain that is usually on one side of your head. Recurrentmigraines keep coming back (recurring). Talk with your doctor about what things may bring on (trigger) your migraine headaches. Follow these instructions at home: Medicines Take yiks-hrj-kzjgbuu and prescription medicines only as told by your doctor. Do not drive or use heavy machinery while taking prescription pain medicine. Lifestyle Do not use any products that contain nicotine or tobacco, such as cigarettes and e-cigarettes. If you need help quitting, ask your doctor. Limit alcohol intake to no more than 1 drink a day for non women and 2 drinks a day for men. One drink equals 12 oz of beer, 5 oz of wine, or 1 oz of hard liquor. Get 7 9 hours of sleep each night. Lessen any stress in your life. Ask your doctor about ways to lower your stress. Stay at a healthy weight. Talk with your doctor if you need help losing weight. Get regular exercise. General instructions Keep a journal to find out if certain things bring on migraine headaches. For example, write down: ?What you eat and drink. ?How much sleep you get. ?Any change to your diet or medicines. Lie down in a dark, quiet room when you have a migraine. Try placing a cool towel over your head when you have a migraine. Keep lights dim if bright lights bother you or make your migraines worse. Keep all follow-up visits as told by your doctor. This is important. Contact a doctor if: Medicine does not help your migraines. Your pain keeps coming back. You have a fever. You have weight loss without trying. Get help right away if: Your migraine becomes really bad and medicine does not help. You have a stiff neck. You have trouble seeing. Your muscles are weak or you lose control of your muscles. You lose your balance or have trouble walking. You feel like you will pass out (faint) or you pass out. You have really bad symptoms that are different than your first symptoms. You start having sudden, very bad headaches that last for one second or less, like a thunderclap. Summary A migraine headache is very bad, throbbing pain that is usually on one side of your head. Talk with your doctor about what things may bring on (trigger) your migraine headaches. Take irrx-nhm-wqxkqin and prescription medicines only as told by your doctor. Lie down in a dark, quiet room when you have a migraine. Keep a journal about what you eat and drink, how much sleep you get, and any changes to your medicines. This can help you find out if certain things make you have migraine headaches. This information is not intended to replace advice given to you by your health care provider. Make sure you discuss any questions you have with your health care provider. Document Released: 05/18/2009 Document Revised: 08/12/2018 Document Reviewed: 07/02/2017 [employer] Patient Education 2020 [employer]. Follow Up Care 12/04/2021 13:53:38 With:Valdemar MCCLENDON DO, FAAFP, FAM, PED Address: [place] [address]- When:Within 3 Month(s) [facility] Primary Care Evaluation + Plan note Future Appointments Appointment Date:03/12/2022 08:00:00 AM Scheduled Provider:Valdemar MCCLENDON DO, FAAFP Location:[facility] Appointment Type:[facility] Primary Care evaluation + Plan note Future Appointments Appointment Date:06/19/2022 08:00:00 AM Scheduled Provider:Valdemar MCCLENDON DO, FAAFP Location:[facility] Appointment Type:[facility] Primary Care evaluation + Plan note Future Appointments Appointment Date:09/24/2022 09:00:00 AM Scheduled Provider:Valdemar MCCLENDON DO, FAAFP Location:[facility] Appointment Type:[facility] Primary Care Evaluation + Plan note Future Appointments Appointment Date:12/22/2022 11:00:00 AM Scheduled Provider:Valdemar MCCLENDON DO, FAAFP Location:[facility] Appointment Type:[facility] Primary Care evaluation + Plan note Future Appointments Appointment Date:04/15/2023 11:00:00 AM Scheduled Provider:Valdemar MCCLENDON DO, FAAFP Location:[facility] Appointment Type:[facility] Primary Care evaluation + Plan note Future Appointments Appointment Date:04/20/2023 07:00:00 AM Scheduled Provider: Location[facility] [place] Appointment Type:PT Vestib/ Concussion 45 (FT) Appointment Date:04/23/2023 08:00:00 AM Scheduled Provider: Location[place] Appointment Type:PT Vestib/ Concussion 45 (FT) Appointment Date:04/27/2023 08:45:00 AM Scheduled Provider: Location:[place] Appointment Type:PT Vestib/ Concussion 45 (FT) Appointment Date:04/29/2023 02:15:00 PM Scheduled Provider: Location:[place] Appointment Type:PT Vestib/ Concussion 45 (FT) Appointment Date:05/04/2023 07:00:00 AM Scheduled Provider: [place] Appointment Type:PT Vestib/ Concussion 45 (FT) Appointment Date:05/06/2023 08:00:00 AM Scheduled Provider: Location:[place] Appointment Type:PT Vestib/ Concussion 45 (FT) Appointment Date:05/11/2023 07:00:00 AM Scheduled Provider: Location[place] Appointment Type:PT Concussion Re-eval (FT) Appointment Date:07/09/2023 01:20:00 PM Scheduled Provider:Valdemar MCCLENDON DO, FAAFP Location:[facility] Appointment Type:FM Open Future Scheduled Tests Radiology* CT Head or Brain w/o Contrast 04/15/23 [facility] Primary Care evaluation + Plan note Future Appointments Appointment Date:10/14/2023 08:40:00 AM Scheduled Provider:Valdemar MCCLENDON DO, FAAFP Location:[facility] Appointment Type:FM Open Future Scheduled Tests Radiology* CT Head or Brain w/o Contrast 04/15/23 [facility] Primary Care Evaluation + Plan note Future Appointments Appointment Date:01/21/2024 08:40:00 AM Scheduled Provider:Valdemar MCCLENDON DO, FAAFP Location:[facility] Appointment Type:FM Open Future Scheduled Tests Radiology* CT Head or Brain w/o Contrast 04/15/23 [facility] Primary Care Evaluation + Plan note Future Appointments Appointment Date:04/25/2024 09:40:00 AM Scheduled Provider:Valdemar MCCLENDON DO, FAAFP Location:[facility] Appointment Type:FM Open Future Scheduled Tests Radiology* CT Head or Brain w/o Contrast 04/15/23 [facility] Primary Care Evaluation + Plan note Future Appointments Appointment Date:07/31/2024 09:00:00 AM Scheduled Provider:Valdemar MCCLENDON DO, FAAFP Location:[facility] Appointment Type: Open [facility] Primary Care Evaluation + Plan note Future Appointments Appointment Date:10/31/2024 09:00:00 AM Scheduled Provider:Valdemar MCCLENDON DO, FAAFP Location:[facility] Appointment Type:[facility] Primary Care Evaluation note* Diagnosis SDH (subdural hematoma) (HCC)- Primary Subdural hemorrhage Fall, initial encounter SDH (subdural hematoma) (HCC) Subdural hemorrhage Fall Unspecified fall documented in this encounter [facility] Syncope and collapse- Primary Syncope and collapse SDH (subdural hematoma) (HCC) Subdural hemorrhage Hygroma Lymphangioma, any site Orthostatic hypotension Falls frequently Personal history of fall documented in this encounter [facility] N[facility]ative - Reported* Type Description Date Medical History asthma Medical History ADHD Medical History depression/anxiety Surgical History t&a Surgical History x2 Surgical History tubal ligation Weeleo Other Hospital course Narrative No data available for this section [facility] Hospital Discharge instructions No data available for this section [facility] Primary [facility] Progress note No data available for this section [facility] Primary Care Summary Purpose Family History No Family History Records FoundNo Family History Records FoundNo Family History Records Found No data available for this section No Family History Records Found No data available for this section No data available for this section No data available for this section No data available for this section No Family History Records FoundNo Family History Records Found No data available for this section No Family History Records Found Advance Directives No Advanced Directives Records FoundLatest Code Status on File Code Status Date Activated Date Inactivated Comments Full Code 02/14/2023 3:23 AM Healthcare Agents on File Name Relationship Healthcare Agent Relationshi p Communication Mary Lara Parent Primary Decision Maker Latest Code Status on File Code Status Date Activated Date Inactivated Comments Full Code 03/09/2023 4:19 AM Code Status History Code Status Date Activated Date Inactivated Comments Full Code 02/14/2023 3:23 AM 02/22/2023 5:56 PM Healthcare Agents on File Name [facility]man Healthcare Agent Michaellehi p Communication Mary Lara Parent Primary Decision Maker Reason for Referral Specialty Diagnoses / Procedures Referred By Contac t Referred To Contact Occupational Therapy Diagnoses Syncope and collapse SDH (subdural hematoma) ([facility]) [facility] [address] [place], [place] [address] Referral ID Status Reason Start Date Expiration Date Visits Requested Visits Authorized [id number] Open Patient Preference 03/10/2023 09/06/2023 1 1 Scheduling Instructions Evaluate and Treat Question Answer Reason For External Referral? Patient Preference Comments The patient can be scheduled with any member of the group, including the provider with the first available appointments. Specialty Diagnoses / Procedures Referred By Contac t Referred To Contact Speech Pathology Diagnoses Syncope and collapse SDH (subdural hematoma) ([facility]) [facility] [address] [place] [address] Referral ID Status Reason Start Date Expiration Date Visits Requested Visits Authorized [id number] Open Patient Preference 03/10/2023 09/06/2023 1 1 Scheduling Instructions Evaluate and Treat for cognition Specialty Diagnoses / Procedures Referred By Contac t Referred To Contact Physical Therapist Diagnoses Syncope and collapse SDH (subdural hematoma) ([facility]) [facility] [address] [place] [id number] Referral ID Status Reason Start Date Expiration Date Visits Requested Visits Authorized [id number] Open Patient Preference 03/10/2023 09/06/2023 1 1 Scheduling Instructions Evaluate and Treat for Vestibular Therapy Specialty Diagnoses / Procedures Referred By Contac t Referred To Contact Radiology Diagnoses SDH (subdural hematoma) ([facility]) Procedures CT HEAD WO CONTRAST Felisa Schroeder, SILVANA [address] [place] [address] Referral ID Status Reason Start Date Expiration Date V isits Requested Visits Authorized [id number] Pending Review 03/01/2023 02/29/2024 1 1 Additional Source Comments INFORMATION SOURCE (unrecogn ized section and content) DATE CREATED AUTHOR 02/11/2018 [facility] DATE CREATED AUTHOR AUTHOR'S ORGANIZ ATION 10/03/2021 [facility] DATE CREATED AUTHOR AUTHOR'S ORGANIZ ATION 03/05/2023 [facility] DATE CREATED AUTHOR AUTHOR'S ORGANIZ ATION 07/15/2023 [facility] DATE CREATED AUTHOR AUTHOR'S ORGANIZ ATION 07/18/2024 [facility] DATE CREATED AUTHOR AUTHOR'S ORGANIZ ATION 08/02/2024 [facility] DATE CREATED AUTHOR AUTHOR'S ORGANIZ ATION 10/03/2024 [facility] Care Team (unrecognized sect ion and content) Personnel Name: Valdemar MCCLENDON DO, FAAFP Address: [address] [place] [address] Name: Nimisha Ramirez I Name: Chantelle Wasserman Personnel Name: Valdemar MCCLENDON DO, FAAFP Address: Address: [address] [place] [address] Name: Nimisha Ramirez I Name: Chantelle Wasserman Personnel Name: Valdemar MCCLENDON DO, FAAFP Address: Address: [address] [place] [address] Name: Nimisha Ramirez I Name: Chantelle Wasserman Personnel Name: Valdemar MCCLENDON DO, FAAFP Address: Address: [address] [place] [address] Name: Nimisha Ramirez I Name: Chantelle Wasserman Personnel Name: Valdemar MCCLENDON DO, FAAFP Address: Address: [address] [place] [address] Name: Nimisha Ramirez I Name: Chantelle Wasserman Personnel Name: Valdemar MCCLENDON DO, FAAFP Address: Address: [address] [place] [address]- Name: AshleyNimisha I Name: Chantelle Wasserman Personnel Name: [facility], Valdemar A Address: Address: [address] [place] [address] Name: AshleyNimisha I Name: Chantelle Wasserman Personnel Name: [facility], Valdemar A Address: Address: [address] [place] [address]- Name: AshleyNimisha I Name: Chantelle Wasserman Personnel Name: [facility], Valdemar A Address: Address: [address] [place] [address]- Name: AshleyNimisha I Name: Chantelle Wasserman Personnel Name: [facility], Valdemar A Address: Address: [address] [place] [address]- Name: Ashley Nimisha I Name: Chantelle Wasserman Personnel Name: [facility], Valdemar A Address: Address: [address] [place] [address]- Name: Ashley Nimisha Yojana Name: Chantelle Wasserman Personnel Name: [facility], Valdemar A Address: Address: [address] [place] [address] Name: Ashley Nimisha I Name: Chantelle Wasserman Personnel Name: [facility], Valdemar A Address: Address: [address] [place] [address] Name: Ashley Nimisha I Name: Chantelle Wasserman Personnel Name: [facility], Valdemar A Address: Address: [address] [place] [address] Name: Nimisha Ramirez I Name: Chantelle Wasserman REASON FOR VISIT (unrecogniz ed section and content) Specialty Diagnoses / Procedures Referred By Contac t Referred To Contact Diagnoses SDH (subdural hematoma) ([facility]) Felisa Segura MD [facility] [address] [place] [address] [facility] [address] [place] [address] Referral ID Status Reason Start Date Expiration Date Visits Re quested Visits Authorized [id number] 1 1 Reason Comments Fall Dizziness Specialty Diagnoses / Procedures Referred By Contac t Referred To Contact Diagnoses Syncope and collapse SDH (subdural hematoma) ([facility]) David Herrera MD [address] [place] [address] [facility] [address] [place] [address] Referral ID Status Reason Start Date Expiration Date Visits Re quested Visits Authorized [id number] 1 1 Ordered Prescriptions (unrec ognized section and content) Prescription Sig Dispensed Refills Start Date End Da te topiramate (TOPAMAX) 50 MG tablet Take 1 tablet by mouth 2 times daily for 7 days 14 tablet 0 02/22/2023 03/01/2023 methocarbamol (ROBAXIN) 500 MG tablet Take 1 tablet by mouth 4 times daily as needed (muscle spasms) 28 tablet 0 02/22/2023 03/01/2023 polyethylene glycol (GLYCOLAX) 17 g packet Take 17 g by mouth daily as needed for Constipation 30 each 0 02/22/2023 03/24/2023 acetaminophen (TYLENOL) 500 MG tablet Take 2 tablets by mouth every 8 (eight) hours for 7 days 42 tablet 0 02/22/2023 03/01/2023 oxyCODONE (ROXICODONE) 5 MG immediate release tabletIndications:SDH (subdural hematoma) ([facility]) Take 1 tablet by mouth every 8 hours as needed for Pain for up to 3 days. Max Daily Amount: 15 mg 9 tablet 0 02/22/2023 02/25/2023 Prescription Sig Dispensed Refills Start Date End Da te fludrocortisone (FLORINEF) 0.1 MG tablet Take 0.5 tablets by mouth every morning 15 tablet 0 03/10/2023 04/09/2023 meclizine (ANTIVERT) 25 MG tablet Take 1 tablet by mouth 3 times daily as needed for Dizziness 15 tablet 0 03/09/2023 03/19/2023 Scheduled Active and Recently Administ ered Medications (unrecognized section and content) Medication Order 02/20/2023 02/21/2023 02/22/2023 acetaminophen (TYLENOL) tablet 1,000 mg (CANCELED) 1,000 mg, Oral, EVERY 8 HOURS SCHEDULED (3 times per day), First dose on Wed02/14/23 at 0600, Until Discontinued, Maximum dose of acetaminophen is 4000 mg from all sources in 24 hours. 0550 (Given - Provider: Esdras Rubio RN)1333 (Given - Provider: Chantelle Vega RN)2210 (Given - Provider: Jyotsna Martines RN) 0609 (Given - Provider: Jyotsna Martines RN)1502 (Given - Provider: Chantelle Vega RN)2256 (Given - Provider: Jyotsna Martines RN) acetaminophen (TYLENOL) tablet 975 mg 975 mg, Oral, EVERY 8 HOURS SCHEDULED (3 times per day), First dose (after last modification) on Wed02/22/23 at 0600, Until Discontinued, Maximum dose of acetaminophen is 4000 mg from all sources in 24 hours. 0556 (Given - Provider: Jyotsna Martines RN)1506 (Given - Provider: Linda Drake RN)2200 (Due) enoxaparin Sodium (LOVENOX) injection 30 mg 30 mg, SubCUTAneous, 2 TIMES DAILY, First dose on Wed02/15/23 at 1445, Until Discontinued, Indication of Use: Prophylaxis-DVT/PE, Administer by deep subCUTAneous injection with pt lying down. Alternate injection sites on abdominal wall. Do not rub site after injection. Check with provider prior to any invasive procedure. 0834 (Given - Provider: Chantelle Vega RN)205 (Given - Provider: Jyotsna Martines RN) 08 (Given - Provider: Chantelle Vega RN)2144 (Given - Provider: Jyotsna Martines RN) 0825 (Given - Provider: Linda Drake RN)2100 (Due) ibuprofen (ADVIL;MOTRIN) tablet 400 mg 400 mg, Oral, 4 TIMES DAILY WITH MEALS & NIGHTLY, First dose (after last modification) on Wed02/17/23 at 1700, Until Discontinued 0834 (Given - Provider: Chantelle Vega RN)1240 (Given - Provider: Chantelle Vega RN)171 (Given - Provider: Chantelle Vega RN)2058 (Given - Provider: Jyotsna Martines RN) 0812 (Given - Provider: Chantelle Vega RN)131 (Given - Provider: Chantelle Vega RN)172 (Given - Provider: Chantelle Vega RN)214 (Given - Provider: Jyotsna Martines RN) 0823 (Given - Provider: Linda Drake RN)115 (Given - Provider: Linda Drake RN)1700 (Due)2100 (Due) levETIRAcetam (KEPPRA) tablet 500 mg (COMPLETED) 500 mg, Oral, 2 TIMES DAILY, 14 doses, First dose on Wed02/15/23 at 1200, Last dose on Wed02/21/23 at 2100, Do not crush or chew. 0834 (Given - Provider: Chantelle Vega RN)2100 (Given - Provider: Jyotsna Martines RN) 08 (Given - Provider: Chantelle Vega RN)214 (Given - Provider: Jyotsna Martines RN) sertraline (ZOLOFT) tablet 25 mg 25 mg, Oral, DAILY, First dose on 02/14/23 at 0900, Until Discontinued 0834 (Given - Provider: Chantelle Vega RN) 0812 (Given - Provider: Chantelle Vega RN) 0824 (Given - Provider: Linda Drake RN) topiramate (TOPAMAX) tablet 50 mg 50 mg, Oral, 2 TIMES DAILY, First dose on Wed02/19/23 at 0900, Until Discontinued, It is not recommended to crush, break, or chew immediate release tablets due to bitter taste. 0834 (Given - Provider: Chantelle Vega RN)205 (Given - Provider: Jyotsna Martines RN) 0813 (Given - Provider: Chantelle Vega RN)2144 (Given - Provider: Jyotsna Martines, BHUMI) 0824 (Given - Provider: Linda Drake RN)2100 (Due) PRN Medication Order 02/20/2023 02/21/2023 02/22/2023 methocarbamol (ROBAXIN) tablet 500 mg 500 mg, Oral, 4 TIMES DAILY PRN, Starting on Wed02/17/23 at 1530, Until Discontinued, Muscle spasms ondansetron (ZOFRAN) injection 4 mg 4 mg, IntraVENous, EVERY 6 HOURS PRN, Starting on Mikala 02/18/23 at 0949, Until Discontinued, Nausea, Vomiting oxyCODONE (ROXICODONE) immediate release tablet 5 mg 5 mg, Oral, EVERY 4 HOURS PRN, Starting on Wed02/19/23 at 0731, Until Discontinued, Pain Severe (7-10) 1536 (Given - Provider: Chantelle Vega RN) polyethylene glycol (GLYCOLAX) packet 17 g 17 g, Oral, DAILY PRN, Starting on 02/21/23 at 1732, Until Discontinued, Constipation, Stir and dissolve one packet of powder (17 g) in any 4 to 8 ounces of beverage (cold, hot or room temperature) then drink 1756 (Given - Provider: Chantelle Vega RN) sodium chloride flush 0.9 % injection 5-40 mL 5-40 mL, IntraVENous, PRN, Starting on 02/14/23 at 0314, Until Discontinued, Line Care, After every IV line use, For Line Patency: Peripheral IV = 5 mL; Midline or Central Line = 10 mL/lumen. If following IV push medication, administer flush at same rate as the IV push. Flush volume is determined by type of infusion therapy being given. For non-viscous solutions use: Peripheral IV = 5 mL Midline or Central Line = 10 mL/lumen For viscous solutions (i.e. blood components, parenteral nutrition, contrast media, or after obtaining blood sample) use: Peripheral IV = 10 mL Midline or Central Line = 20 mL/lumen 0834 (Given - Provider: Chantelle Vega RN) 0813 (Given - Provider: Chantelle Vega RN) Scheduled Medication Order 03/08/2023 03/09/2023 03/10/2023 0.9 % sodium chloride bolus (COMPLETED) 1,000 mL, IntraVENous, at 495.9 mL/hr, Administer over 121 Minutes, ONCE, On Wed03/09/23 at 1930, For 1 dose 1948 (New Bag - Provider: Harriet Medina RN)2229 (Stopped - Provider: Johanna Rosa, RN) acetaminophen (TYLENOL) tablet 1,000 mg 1,000 mg, Oral, EVERY 8 HOURS SCHEDULED (3 times per day), First dose on Wed03/09/23 at 0600, Until Discontinued, Maximum dose of acetaminophen is 4000 mg from all sources in 24 hours. 0508 (Given - Provider: Pardeep Turner RN)1223 (Given - Provider: Brent De Santiago, BHUMI) 0002 (Not Given - Provider: Johanna Rosa RN - Reason: Patient/family refused)0442 (Given - Provider: Johanna Rosa, RN)1247 (Given - Provider: Lorena Soto RN)2200 (Due) diphenhydrAMINE (BENADRYL) injection 25 mg (COMPLETED) 25 mg, IntraVENous, ONCE, 1 dose, On Wed03/09/23 at 0830, IV Push at rate not to exceed 25 mg/min. 0825 (Given - Provider: Brent De Santiago RN) fentaNYL (SUBLIMAZE) injection 50 mcg (COMPLETED) 50 mcg, IntraVENous, ONCE, 1 dose, On Wed03/09/23 at 0045, If oral and IV narcotics ordered, use oral first and only use IV if oral is ineffective or cannot take oral. Do Not give oral and IV within 1 hour of each other unless specifically ordered. 0052 (Given - Provider: Mateusz Lobo, BHUMI) fludrocortisone (FLORINEF) tablet 0.1 mg 0.1 mg, Oral, DAILY, First dose on Wed03/10/23 at 1030, Until Discontinued 0945 (Given - Provid er: Lorena Soto RN) gabapentin (NEURONTIN) capsule 300 mg 300 mg, Oral, EVERY 8 HOURS, First dose on Wed03/09/23 at 0430, Until Discontinued 0509 (Given - Provider: Pardeep Turner RN)1223 (Given - Provider: Brent De Santiago RN)2106 (Given - Provider: Harriet Medina, BHUMI) 0440 (Given - Provider: Johanna Rosa, RN)1252 (Given - Provider: Lorena Soto, BHUMI)2030 (Due) methocarbamol (ROBAXIN) tablet 750 mg 750 mg, Oral, EVERY 6 HOURS, First dose on Wed03/09/23 at 0430, Until Discontinued 0508 (Given - Provider: Pardeep Turner RN)1223 (Given - Provider: Brent De Santiago RN)1630 (Due)2106 (Given - Provider: Harriet Medina RN) 0440 (Given - Provider: Johanna Rosa, BHUMI)0939 (Given - Provider: Lorena Soto, BHUMI)1557 (Given - Provider: Lorena Soto RN)2230 (Due) polyethylene glycol (GLYCOLAX) packet 17 g 17 g, Oral, DAILY, First dose on Wed03/09/23 at 0900, Until Discontinued 07 (Not Given - Provider: Brent De Santiago RN - Reason: Other) 0937 (Not Given - Provider: Lorena Soto RN - Reason: Patient/family refused) prochlorperazine (COMPAZINE) injection 10 mg (COMPLETED) 10 mg, IntraVENous, ONCE, 1 dose, On Wed03/09/23 at 0830, If administering IV push, administer at a maximum rate of 5 mg/minute. 0825 (Given - Provider: Brent De Santiago RN) sodium chloride flush 0.9 % injection 5-40 mL 5-40 mL, IntraVENous, EVERY 12 HOURS SCHEDULED (2 times per day), First dose on Wed03/09/23 at 0900, Until Discontinued, For Line Patency: Peripheral IV = 5 mL; Midline or Central Line = 10 mL/lumen. If following IV push medication, administer flush at same rate as the IV push. Flush volume is determined by type of infusion therapy being given. For non-viscous solutions use: Peripheral IV = 5 mL Midline or Central Line = 10 mL/lumen For viscous solutions (i.e. blood components, parenteral nutrition, contrast media, or after obtaining blood sample) use: Peripheral IV = 10 mL Midline or Central Line = 20 mL/lumen 07 (Not Given - Provider: Brent De Santiago RN - Reason: Other)220 (Not Given - Provider: Johanna Rosa RN - Reason: IV Fluid Infusing) 0940 (Given - Provider: Lorena Soto RN)2100 (Due) PRN Medication Order 03/08/2023 03/09/2023 03/10/2023 ondansetron (ZOFRAN) injection 4 mg(Linked Group 1) 4 mg, IntraVENous, EVERY 6 HOURS PRN, Starting on Wed03/09/23 at 0417, Until Discontinued, Nausea, Vomiting, Administer if oral route cannot be used. ondansetron (ZOFRAN-ODT) disintegrating tablet 4 mg(Linked Group 1) 4 mg, Oral, EVERY 8 HOURS PRN, Starting on Wed03/09/23 at 0417, Until Discontinued, Nausea, Vomiting oxyCODONE (ROXICODONE) immediate release tablet 5 mg 5 mg, Oral, EVERY 6 HOURS PRN, Starting on Wed03/09/23 at 0419, Until Discontinued, Pain Severe (7-10) 1946 (Given - Provider: Harriet Medina RN) 0938 (Given - Provider: Lorena Soto RN)1556 (Given - Provider: Lorena Soto RN) senna (SENOKOT) tablet 8.6 mg 8.6 mg (1 tablet), Oral, DAILY PRN, Starting on Wed03/09/23 at 0417, Until Discontinued, Constipation, First line therapy for constipation sodium chloride flush 0.9 % injection 5-40 mL 5-40 mL, IntraVENous, PRN, Starting on Wed03/09/23 at 0417, Until Discontinued, Line Care, After every IV line use, For Line Patency: Peripheral IV = 5 mL; Midline or Central Line = 10 mL/lumen. If following IV push medication, administer flush at same rate as the IV push. Flush volume is determined by type of infusion therapy being given. For non-viscous solutions use: Peripheral IV = 5 mL Midline or Central Line = 10 mL/lumen For viscous solutions (i.e. blood components, parenteral nutrition, contrast media, or after obtaining blood sample) use: Peripheral IV = 10 mL Midline or Central Line = 20 mL/lumen Linked Groups Order Group 1: ondansetron (ZOFRAN-ODT) disintegrating tablet 4 mgJump to med 4 mg, Oral, EVERY 8 HOURS PRN, Starting on Wed03/09/23 at 0417, Until Discontinued, Nausea, Vomiting Or ondansetron (ZOFRAN) injection 4 mgJump to med 4 mg, IntraVENous, EVERY 6 HOURS PRN, Starting on Wed03/09/23 at 041, Until Discontinued, Nausea, Vomiting
Administer if oral route cannot be used.
FOR RECORDS PERTAINING TO PATIENTS WHO ARE OR HAVE BEEN ENROLLED IN A CHEMICAL DEPENDENCY/SUBSTANCEABUSE PROGRAM, SOME INFORMATION MAY BE OMITTED. This clinical summary was aggregated from multiple sources. Caution should be exercised in using it in the provision of clinical care. This summary normalizes information from multiple sources, and as a consequence, information in this document may materially change the coding, format and clinical context of patient data. In addition, data may be omitted in some cases. CLINICAL DECISIONS SHOULD BE BASED ON THE PRIMARY CLINICAL RECORDS. [facility]. provides no warranty or guarantee of the accuracy or completeness of information in this document."
--- NOTE | 2024-10-30 14:10 | P.CN_ITS ---
Consult Note: HPI Data of Consult Patient: known to practice within the last 3 years Consult date: 10/30/24 Requesting Physician: Yaya Johnson MD Primary Care Provider: AMY NICHOLSON Consult Narrative Reason for consult: left arm pain Narrative: 39yof who presents for assessment. states that pain in left arm was improving with muscle relaxer and lyrica, but recently started bone stimulator, which worsened pain. had some increased fatigue and brain fog with lyrica 150mg dose qhs. cc:: CC: Yaya Johnson MD Review of Systems ROS Status of ROS 10 or more systems reviewed and unremark able except as noted in history and below Meds Home Medications and Allergies Home Medications ?Medication ?Instructions ?Recorded ?Confirmed ?Type acetaminophen 500 mg tablet 1,000 mg PO TID 03/08/23 03/08/23 History albuterol sulfate 90 mcg/actuation 2 inh inhalation Q4H PRN shortness 03/08/23 03/08/23 History aerosol inhaler of breath or wheezing dextroamphetamine-amphetamine 30 30 mg PO BID 03/08/23 03/08/23 History mg tablet methocarbamol 500 mg tablet 500 mg PO Q6H PRN spasms 03/08/23 03/08/23 History buspirone 5 mg tablet 5 mg PO TID 09/25/24 09/25/24 History escitalopram oxalate 20 mg tablet 20 mg PO DAILY 09/25/24 09/25/24 History (Lexapro) fluticasone propionate 50 intranasal 09/25/24 History mcg/actuation nasal spray,suspension naproxen 500 mg tablet 500 mg PO BID 09/25/24 09/25/24 History pregabalin 75 mg capsule (Lyrica) 75 mg PO TID 09/25/24 09/25/24 History topiramate 100 mg tablet (Topamax) 100 mg PO DAILY 09/25/24 09/25/24 History Allergies Allergy/AdvReac Type Severity Reaction Status Date / Time No Known Drug Allergies Allergy Verified 03/08/23 18:04 Exam Narrative Exam Narrative: Psych-alert and oriented x 3.? Attentive and appropriate, constitutionally normal, displays normal mood and affect per situation.? There are no obvious deficits in memory, reasoning, or intellect.? Skin-no obvious rashes, bruising, or erythema noted to the patient's area of pain.? Extremities-upper extremities are warm with minimal edema and palpable pulses. Left forearm covered with brace and bandages. Coordination remains intact.? Gait remains non-antalgic. Assessment and Plan Assessment and Plan (1) Nondisplaced comminuted fracture of shaft of ulna, left arm, initial encounter for closed fracture: Plan 39yof who presents for assessment. discussed that could cut her night time dose of lyrica to 75mg and see if she can tolerate that better. she is in agreement. will have her follow up in 3 months or sooner, if needed.
== END 2024-10-30 13:01 | disposition home or self-care (01) ==
LOC: PM 13:00
PROVIDERS: PCP Family Medicine; Visit Provider Anesthesiology
DX: S52.255A Nondisplaced comminuted fracture of shaft of ulna, left arm, initial encounter for closed fracture (principal)
CPT/HCPCS: G0463

== ENCOUNTER 2025-01-22 13:19 | Outpatient (OUT) | payer OTHER, SELFPAY ==
--- OUTSIDE RECORDS SUMMARY | 2025-01-22 13:21 | XMS_ITS | Clinical Summary ---
Author Organization [facility] Address [address] [place] [address] Care Team Providers Care Display Fabrication Supervisor Name Role Phone Unavailable Primary Care Provider Unavailabl e Allergies Active Allergy Reactions Criticality Noted Date Comments Buspirone Other (See Comments) 04/09/2023 [place] like a zombie [place] Oil Other (See Comments) 04/09/2023 Dermatological Products, Misc. Other (See Comments) 04/09/2023 Germanium Other (See Comments) 04/09/2023 MILK NOS Pollen Extract Other (See Comments) Medium 04/09/2023 Wheat Other (See Comments) 04/09/2023 Medications sertraline (ZOLOFT) 100 MG tablet Take 1 tablet by mouth daily Active amphetamine-dextroa mphetamine (ADDERALL) 30 MG tablet Take 1 tablet by mouth 2 times daily. Active acetaminophen (TYLENOL) 500 MG tablet Take 2 tablets by mouth every 8 (eight) hours for 7 days 42 tablet 3 Active melatonin 3 MG TABS tablet Take 5 mg by mouth daily Active loratadine (CLARITIN) 10 MG tablet Take 1 tablet by mouth daily Active fluticasone (FLONASE) 50 MCG/ACT nasal spray 1 spray by Each Nostril route daily Active traMADol (ULTRAM) 50 MG tablet Take 1 tablet by mouth every 6 hours as needed for Pain. Active methocarbamol (ROBAXIN) 750 MG tablet Take 1 tablet by mouth 4 times daily Active topiramate (TOPAMAX) 50 MG tabletIndications:C hronic nonintractable headache, unspecified headache type Take 1 tablet by mouth at bedtime 30 tablet Active Active Problems Problem Noted Date Diagnosed Date Orthostatic hypotension 03/10/2023 Falls frequently 03/10/2023 Syncope and collapse 03/09/2023 Hygroma 03/09/2023 SDH (subdural hematoma) 02/14/2023 Resolved Problems Problem Noted Date Diagnosed Date Resolved Date Fall 02/17/2023 03/19/2023 Social History Tobacco Use Types Packs/Day Years Used Date Smoking Tobacco: Never Smokeless Tobacco: Never Tobacco Cessation:Counseling Given: Not Answered Alcohol Use Standard Drinks/Week Comments Yes 0 (1 standard drink = 0.6 oz pur e alcohol) socially Interpersonal Safety Domain Source: IP Abuse Scr eening Answer Date Recorded Read-Only, Retired: Physical Abuse Denies 03/09/2023 Read-Only, Retired: Verbal Abuse Denies 03/09/2023 Read-Only, Retired: Emotional abuse Denies 03/09/2023 Read-Only, Retired: Financial Abuse Denies 03/09/2023 Read-Only, Retired: Sexual abuse Denies 03/09/2023 Comments Unknown Sex and Gender Information Value Date Recorded Sex Assigned at Not on file Legal Sex Female 12:28 AM EDT Gender Identity Not on file Sexual Orientation Not on file Last Filed Vital Signs Vital Sign Reading Time Taken Comments Blood Pressure 129/84 04/09/2023 11:03 AM EDT Pulse 75 04/09/2023 11:03 AM EDT Temperature 36.3 C (97.3 F) 03/10/2023 7:55 AM EDT Respiratory Rate 15 03/10/2023 5:29 PM EDT Oxygen Saturation 98% 04/09/2023 11:03 AM EDT Inhaled Oxygen Concentration - - Weight 71.7 kg (158 lb) 04/09/2023 11:03 AM EDT Height 167.6 cm (5' 6 ) 04/09/2023 11:03 AM EDT Body Mass Index 25.5 04/09/2023 11:03 AM EDT Plan of Treatment Health Maintenance Due Date Last Done Comments Depression Screen 1997 Varicella vaccine (1 of 2 - 13+ 2-dose series) 1998 HIV screen 2000 Hepatitis C screen 2003 Hepatitis B vaccine (1 of 3 - 19+ 3-dose series) 2004 Pap smear 2006 Cervical cancer screen 2015 HPV (without or with Pap) 2015 DTaP/Tdap/Td vaccine (2 - Td or Tdap) 09/27/2023 09/27/2013 COVID-19 Vaccine (1 - 2023-2 5 season) 2024 Flu vaccine (Season Ended) 03/23/202505/25, 05/28/2011 HPV vaccine Aged Out No longer eligi ble based on patient's age to complete this topic Hepatitis A vaccine Aged Out No longe r eligible based on patient's age to complete this topic Hib vaccine Aged Out No longer eligi ble based on patient's age to complete this topic Meningococcal (ACWY) vaccine Aged Out No longer eligible based on patient's age to complete this topic Meningococcal B vaccine Aged Out No l onger eligible based on patient's age to complete this topic Pneumococcal 0-49 years Vaccine Aged Out No longer eligible b ased on patient's age to complete this topic Polio vaccine Aged Out No longer elig ible based on patient's age to complete this topic Insurance [facility] AETNA Advance Directives * Full Code (Latest Code Status on File) Date Activated Date Inactivated Comments 03/09/2023 4:19 AM 03/10/2023 8:45 PM * Full Code Date Activated Date Inactivated Comments 02/14/2023 3:23 AM 02/22/2023 5:56 PM Healthcare Agents on File Name Relationship [facility] Mary Lara Parent Primary Decision Maker
--- OUTSIDE RECORDS SUMMARY | 2025-01-22 13:21 | XMS_ITS | Clinical Summary ---
Author Organization [facility] Address [id number] [address] [place] [address] Care Team Providers Care Sports Marketing Internship Name Role Phone Valdemar Mcclendon DO Primary Care Provider [phone] Allergies No known active allergies Medications ipratropium-alb uterol (COMBIVENT RESPIMAT) 20-100 mcg/actuation mist Inhale. Active cyclobenzaprine (FLEXERIL) 10 mg tablet TAKE 1 TABLET BY MOUTH AT BEDTIME AND 3 TIMES A DAY NEEDED 09/24/2017 Active fluticasone propionate (FLONASE) 50 mcg/actuation nasal spray USE 1 SPRAY IN EACH NOSTRIL 2 TIMES A DAY 09/28/2017 Active montelukast (SINGULAIR) 10 mg tablet Take 10 mg by mouth daily. 09/26/2017 Active cyclobenzaprine (FLEXERIL) 10 mg tablet Take 1 tablet (10 mg total) by mouth 2 (two) times a day as needed for muscle spasms. 10 tablet 12/09/2019 Active ibuprofen (ADVIL,MOTRIN) 600 mg tablet Take 1 tablet (600 mg total) by mouth every 6 (six) hours as needed for pain. 30 tablet 12/09/2019 Active ibuprofen (MOTRIN) 800 mg tablet Take 1 tablet (800 mg total) by mouth 3 (three) times a day. 21 tablet 07/17/2024 Active Active Problems No known active problems Social History Tobacco Use Types Packs/Day Years Used Date Smoking Tobacco: Former Smokeless Tobacco: Never Alcohol Use Standard Drinks/Week Comments Not Currently 0 (1 standard drink = 0.6 oz pur e alcohol) Childcare Answer Date Recorded Childcare Unknown 02/02/2019 Employment Answer Date Recorded Employment Unknown 02/02/2019 Hunger Screening Answer Date Recorded Within the past 12 months we worried whether our food would run out before we got money to buy more. Sometimes True 024 Within the past 12 months th e food we bought just didn't last and we didn't have money to get more. Sometimes True 07/17/2024 Purpose - Life Answer Date Recorded Purpose and direction in life Unknown Comments No Sex and Gender Information Value Date Recorded Sex Assigned at Not on file Legal Sex Female 5:06 PM EDT Gender Identity Not on file Sexual Orientation Not on file Last Filed Vital Signs Vital Sign Reading Time Taken Comments Blood Pressure 118/70 07/17/2024 5:32 AM EST Pulse 67 07/17/2024 5:32 AM EST Temperature 36.7 C (98 F) 07/17/2024 5:41 AM EST Respiratory Rate 16 07/17/2024 5:41 AM EST Oxygen Saturation 100% 07/17/2024 3:15 AM EST Inhaled Oxygen Concentration - - Weight 66.2 kg (146 lb) 07/17/2024 1:46 AM EST Height 170.2 cm (5' 7 ) 07/17/2024 1:46 AM EST Body Mass Index 22.87 07/17/2024 1:46 AM EST Plan of Treatment Health Maintenance Due Date Last Done Comments Depression Screening 1997 Pap Smear 2006 DTaP,Tdap and Td Vaccines (2 - Td or Tdap) 09/27/2023 09/27/2013 Influenza Vaccine 04/23/2025 05/25/2019, 05/28/2011 Adult BMI Screening 07/17/2025 07/17/2024 Tobacco Screening 07/17/2025 07/17/2024 Medical Devices Not on file Insurance [employer]S [employer]ENS[employer] WORK[employer] Care Teams Sports Marketing Internship Relationship Specialty Start Date End Date Valdemar Mcclendon DO PCP - General 01/06/18
--- OUTSIDE RECORDS SUMMARY | 2025-01-22 13:21 | XMS_ITS | Clinical Summary ---
Author Organization [facility] Address [address] [place] [address] Care Team Providers Care Public Health Technologist Name Role Phone Valdemar Mcclendon MD Primary Care Provider [phone] Allergies Active Allergy Reactions Criticality Noted Date Comments Buspirone 04/09/2023 Other Reaction(s): Other (See Comments) [place] like a zombie Clonidine Medium 05/18/2023 Other Reaction(s): Unknown [place] Oil 04/09/2023 Other Reaction(s): Other (See Comments), Unknown Germanium 04/09/2023 Other Reaction(s): Other (See Comments) MILK NOS Pollen Extract Medium 04/09/2023 Other Reaction(s): Other (See Comments) Wheat 04/09/2023 Other Reaction(s): Other (See Comments), Unknown Wound Dressings Hives,Rash,Swelling Low 09/26/2013 Medications amphetamine-dex troamphetamine (Adderall) 30 MG tablet Take 30 mg by mouth in the morning and 30 mg before bedtime. 3 Active albuterol HFA 90 mcg/act inhaler Inhale 2 puffs every 4 (four) hours if needed. 3 Active loratadine (Claritin) 10 MG tablet Take 10 mg by mouth in the morning. Active MELATON-5 HTP-TRYPTOPHAN- B6-MG PO Take 1 tablet by mouth at bedtime. 3 Active fluticasone (Flonase) 50 MCG/ACT nasal spray Administer 1 spray into each nostril in the morning and 1 spray before bedtime. 3 Active fludrocortisone (Florinef) 0.1 MG tablet Take 0.1 mg/day by mouth in the morning. 3 Active Meclizine HCl 25 MG chewable tablet Chew 1 tablet. 3 Active methocarbamol (Robaxin) 500 MG tablet Take 500 mg by mouth. 3 Active traMADol (Ultram) 50 MG tablet Take 1 tablet by mouth every 6 (six) hours if needed. 3 Active Fluticasone-Ume clidin-Vilant 200-62.5-25 MCG/ACT aerosol powder Inhale 1 puff in the morning. 2 Active sertraline (Zoloft) 100 MG tablet Take 100 mg by mouth in the morning. Active Active Problems Problem Noted Date Diagnosed Date Mixed hearing loss, bilateral 05/21/2023 Acquired deformity of nose 05/18/2023 Acute bronchitis due to other specified organism s 05/18/2023 Acute Eustachian salpingitis, bilateral 05/18/20 Allergy to pollen 05/18/2023 BMI 23.0-23.9, adult 05/18/2023 Cerebral concussion 05/18/2023 Cervical strain 05/18/2023 Common migraine 05/18/2023 Compound nevus of back 05/18/2023 Decreased hearing of right ear 05/18/2023 Dizziness 05/18/2023 Frontal sinusitis 05/18/2023 GERD with esophagitis 05/18/2023 Lumbar herniated disc 05/18/2023 Mild intermittent asthma with (acute) exacerbati on 05/18/2023 Nursemaid's elbow 05/18/2023 GELACIO (obstructive sleep apnea) 05/18/2023 Osteoarthritis of fingers of both hands 05/18/20 23 Other chronic pain 05/18/2023 Pain of left hip joint 05/18/2023 Patellofemoral disorders, left knee 05/18/2023 Patellofemoral disorders, right knee 05/18/2023 Rhesus isoimmunization affec ting management of mother, antepartum condition 05/18/2023 Right hand pain 05/18/2023 Fracture of temporal bone with routine healing 0 05/18/2023 Skull fracture 05/18/2023 Tobacco dependence syndrome 05/18/2023 Orthostatic hypotension 03/10/2023 Hygroma 03/09/2023 Syncope and collapse 03/09/2023 SDH (subdural hematoma) 02/14/2023 Attention deficit hyperactivity disorder (ADHD) 11/16/2019 PVC (premature ventricular contraction) 10/30/19 Ventricular trigeminy 10/29/2017 Vasovagal syncope 10/29/2017 Anxiety disorder 03/17/2006 PTSD (post-traumatic stress disorder) 03/17/2006 Depressed 03/17/2006 Asthma 03/17/1992 Resolved Problems Problem Noted Date Diagnosed Date Resolved Date H/O bilateral salpingectomy 05/18/2023 05/18/2023 Head ache 05/18/2023 05/18/2023 Influenza A 05/18/2023 05/18/2023 Falls frequently 03/10/2023 05/18/2023 Immunizations Immunization Administration Dates Next Due Tdap 09/27/2013 Family History Medical History Relation Name Comments COPD Father Tito Hypertension Father Tito Cancer Maternal Grandfather Tito Lara Clotting disorder Mother Diabetes Paternal Grandmother Della Linares Mental illness Sibling Relation Name Status Comments Father Tito Alive Maternal Grandfather Tito Lara Mother Alive Paternal Grandfather Paternal Grandmother Della Linares Sibling Alive Sister x2 Son x2 Social History Tobacco Use Types Packs/Day Years Used Date Smoking Tobacco: Former Cigarettes 0 12/29/2004 - 10/29/2008 Smokeless Tobacco: Never Alcohol Use Standard Drinks/Week Comments Yes 0 (1 standard drink = 0.6 oz pure alcohol) I l l have some drinks with friends every couple months Comments Unknown Sex and Gender Information Value Date Recorded Sex Assigned at Not on file Legal Sex Female 7:22 PM EDT Gender Identity Not on file Sexual Orientation Not on file Last Filed Vital Signs Vital Sign Reading Time Taken Comments Blood Pressure 123/81 05/21/2023 1:08 PM EDT Pulse - - Temperature - - Respiratory Rate - - Oxygen Saturation - - Inhaled Oxygen Concentration - - Weight 78.5 kg (173 lb) 05/21/2023 1:08 PM EDT Height 170.2 cm (5' 7 ) 05/21/2023 1:08 PM EDT Body Mass Index 27.1 05/21/2023 1:08 PM EDT Plan of Treatment Not on file Insurance AETNA Care Teams Public Health Technologist Relationship Specialty Start Date End Date Valdemar Mcclendon MD [address] [place] [address] PCP - General Family Medicine 03/17/23
--- OUTSIDE RECORDS SUMMARY | 2025-01-22 13:21 | XMS_ITS | Clinical Summary ---
Author Organization [facility] Address [address] [place] [address] Care Team Providers Care Remnant Sorter Name Role Phone Valdemar Mcclendon Jose MOREJON Primary Care Provider [phone] Eitan Lewis MD Unavailable [phone] Allergies No known active allergies Medications buPROPion XL (WELLBUTRIN XL) 150 mg 24 hr tablet Take 150 mg by mouth every morning. 5 09/13/2017 Active cyclobenzaprine (FLEXERIL) 10 mg tablet TAKE 1 TABLET BY MOUTH AT BEDTIME AND 3 TIMES A DAY NEEDED 1 09/24/2017 Active montelukast (SINGULAIR) 10 mg tablet Take 10 mg by mouth once daily. 5 09/26/[address] (PROTONIX) 40 mg tablet Take 40 mg by mouth every morning. 5 10/08/2017 Active fluticasone (FLONASE) 50 mcg/actuation nasal spray USE 1 SPRAY IN EACH NOSTRIL 2 TIMES A DAY 3 09/28/2017 Active ALBUTEROL INHALATION Inhale as instructed. Active Active Problems Problem Noted Date Diagnosed Date Vasovagal syncope 10/29/2017 PVC (premature ventricular contraction) 10/30/19 18 Ventricular trigeminy 10/29/2017 Social History Tobacco Use Types Packs/Day Years Used Date Smoking Tobacco: Some Days Cigarettes 0.2 7 Smokeless Tobacco: Never Alcohol Use Standard Drinks/Week Comments Yes 0 (1 standard drink = 0.6 oz pur e alcohol) occasional Area Deprivation Index Answer Date Mark rded National Score (1-100), lower number is lower ri sk Not on file 07/28/2020 State Score (1-10), lower number is lower risk N ot on file 07/28/2020 Data from: https://www.neighborhoodatlas.medicine.[facility]/. Last address used for calculation Not on file 07/28/2020 Comments Unknown Sex and Gender Information Value Date Recorded Sex Assigned at Not on file Legal Sex Female 5:00 PM EDT Gender Identity Not on file Sexual Orientation Not on file Last Filed Vital Signs Vital Sign Reading Time Taken Comments Blood Pressure 126/71 10/29/2017 2:22 PM EST Pulse 83 10/29/2017 2:22 PM EST Temperature - - Respiratory Rate 18 10/29/2017 2:22 PM EST Oxygen Saturation 100% 10/29/2017 2:22 PM EST Inhaled Oxygen Concentration - - Weight 68.9 kg (152 lb) 10/29/2017 2:22 PM EST Height 170.2 cm (5' 7 ) 10/29/2017 2:22 PM EST Body Mass Index 23.81 10/29/2017 2:22 PM EST Plan of Treatment Health Maintenance Due Date Last Done Comments Anxiety Screening 2003 Depression Screening 2003 HIV Screening 2003 Hepatitis C Screening 2003 DTaP,Tdap,Td Vaccine (1 - Tdap) 2004 Hepatitis B Vaccine (1 of 3 - 19+ 3-dose series) 06/27 Cervical Cancer Screening 2006 Covid-19 Vaccine (2023- season) 2024 Influenza Vaccine (Season Ended) 2025 Insurance [facility] MEDICAID Care Teams Remnant Sorter Relationship Specialty Start Date End Date Valdemar Mcclendon DO PCP - General Family Medicine 06/19/15 Eitan Lewis MD [address] [id number] Primary Staff Physician Cardiology 11/08/18
--- OUTSIDE RECORDS SUMMARY | 2025-01-22 13:21 | XMS_ITS | Encounter Summary ---
Author Organization [facility] Address [address] [place] [address] Care Team Providers Care Commercial Food Instructor Name Role Phone Valdemar Mcclendon MD Primary Care Provider [phone] Encounter Details Date Type Department Care Team (Late st Contact Info) Description 05/14/2023 Abstract [facility] [address] [facility] [place] [address] Nicolasa Goyal, [facility] [address] [place] [address] Social History Tobacco Use Types Packs/Day Years Used Date Smoking Tobacco: Never Smokeless Tobacco: Never Alcohol Use Standard Drinks/Week Comments Never 0 (1 standard drink = 0.6 oz pur e alcohol) caffeine 2-3 cups/day Comments Unknown Sex and Gender Information Value Date Recorded Sex Assigned at Not on file Legal Sex Female 7:22 PM EDT Gender Identity Not on file Sexual Orientation Not on file COVID-19 Exposure Response Date Recorded In the last 10 days, have yo u been in contact with someone who was confirmed or suspected to have Coronavirus/COVID-19? No / Unsure 05/14/2023 10:27 AM EDT documented as of this encounter Plan of Treatment Not on file documented as of this encounter Visit Diagnoses Not on filedocumented in this encounter Care Teams Commercial Food Instructor Relationship Specialty Start Date End Date Valdemar cMclendon MD [address] [place] [address] PCP - General Family Medicine 03/17/23 documented as of this encounter
--- NOTE | 2025-01-22 14:02 | PM.CN ---
Consult Note: HPI Data of Consult Patient: known to practice within the last 3 years Consult date: 01/22/25 Requesting Physician: Yaya Johnson MD Primary Care Provider: AMY NICHOLSON Consult Narrative Reason for consult: left arm pain Narrative: 39yof who presents for assessment. continues to have significant burning pain into left arm. pain seems to have gotten slightly worse, painful to touch. she endorses color changes, temperature changes, increased sensitivity, swelling. hsa continued in a provider directed home exercise couse >6 weeks, without significant benefit. uses lyrica 150-150-75, and states that although she does have some brain fog with it, her pain is much worse without it. cc:: CC: Yaya Johnson MD Review of Systems ROS Status of ROS 10 or more systems reviewed and unremarkable except as noted in history and below Meds Home Medications and Allergies Home Medications ?Medication ?Instructions ?Recorded ?Confirmed ?Type acetaminophen 500 mg tablet 1,000 mg PO TID 03/08/23 03/08/23 History albuterol sulfate 90 mcg/actuation 2 inh inhalation Q4H PRN shortness 03/08/23 03/08/23 History aerosol inhaler of breath or wheezing dextroamphetamine-amphetamine 30 30 mg PO BID 03/08/23 03/08/23 History mg tablet methocarbamol 500 mg tablet 500 mg PO Q6H PRN spasms 03/08/23 03/08/23 History buspirone 5 mg tablet 5 mg PO TID 09/25/24 09/25/24 History escitalopram oxalate 20 mg tablet 20 mg PO DAILY 09/25/24 09/25/24 History (Lexapro) fluticasone propionate 50 intranasal 09/25/24 History mcg/actuation nasal spray,suspension naproxen 500 mg tablet 500 mg PO BID 09/25/24 09/25/24 History pregabalin 75 mg capsule (Lyrica) 75 mg PO TID 09/25/24 09/25/24 History topiramate 100 mg tablet (Topamax) 100 mg PO DAILY 09/25/24 09/25/24 History Allergies Allergy/AdvReac Type Severity Reaction Status Date / Time No Known Drug Allergies Allergy Verified 03/08/23 18:04 Exam Narrative Exam Narrative: Psych-alert and oriented x 3.? Attentive and appropriate, constitutionally normal, displays normal mood and affect per situation.? There are no obvious deficits in memory, reasoning, or intellect. Examination of the left upper extremity reveals notable hyperpathia and allodynia.? Notable atrophy and diffuse weakness present in the extremity.? There is notable shiny skin with hair loss and abnormal hair growth denoting trophic changes presently.? Asymmetric color and temperature changes are present which denotes sudomotor changes.? Decreased range of motion and strength is noted in the extremity.? Coordination remains intact.? Gait remains non-antalgic. Assessment and Plan Assessment and Plan (1) Nondisplaced comminuted fracture of shaft of ulna, left arm, initial encounter for closed fracture: Plan 39yof who presents for assessment. failed conservative measures, as noted. we discussed that given her injury, length of time since injury, and constellation of symptoms, she likely had developed complex regional pain syndrome. i will ask for this diagnosis to be added as an approved diagnosis. thereafter, we could potentially discuss various nerve blocks that may help with her continuing pain. medications were reviewed. we will increase the lyrica to 150mg tid, as she states that the pain relief is worth the brain fog. she will follow up in 3 months or sooner, if needed.
== END 2025-01-22 13:20 | disposition home or self-care (01) ==
PROVIDERS: PCP Family Medicine; Visit Provider Anesthesiology
DX: S52.255A Nondisplaced comminuted fracture of shaft of ulna, left arm, initial encounter for closed fracture (principal)
CPT/HCPCS: G0463

== ENCOUNTER 2025-03-05 07:33 | Day surgery (SDC) | payer OTHER, SELFPAY ==
[2025-03-05 07:55] VITALS: BP 130/87; PULSE 82; TEMP 36.3; O2SAT 100
[2025-03-05] MEDS: 0.9 % SODIUM CHLORIDE 500 ML 50 ML IV (08:10)
[2025-03-05] MEDS: 0.9 % SODIUM CHLORIDE 10 ML SYRINGE - SALINE FLUSH 5 ML INJ (09:19)
[2025-03-05] MEDS: BUPIVACAINE HCL 0.25% PF 25 MG/10 ML VIAL 4 ML INJ (09:19)
[2025-03-05] MEDS: DEXAMETHASONE SOD PHOS 10 MG/ML VIAL INJ (09:19)
[2025-03-05] MEDS: LIDOCAINE HCL 2% 400 MG/20 ML MDV INJ (09:20)
[2025-03-05] MEDS: IOHEXOL 240 MG/ML - 50 ML VIAL INJ (09:20)
--- NOTE | 2025-03-05 09:26 | W.PM.PROCNOT ---
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 A written informed consent was obtained and placed on the chart.? The patient was brought to the medical procedures unit and placed in the supine position.? The area overlying the anterolateral vertebral body of the C6 vertebral element was identified under fluoroscopic guidance.? The area was prepped and draped in usual sterile fashion.? Strict aseptic technique was used throughout.? The C-arm was rotated obliquely until the intervertebral foramen were well-visualized. Lidocaine 1% was used to anesthetize the skin overlying the base of the C7 uncinate process. A 25-gauge 3-1/2 inch Quincke tipped spinal needle was advanced to the above mentioned target point under AP fluoroscopic guidance.? Then Omnipaque dye was injected and verified that no vascular uptake was seen.? Then the above-mentioned aliquot was delivered in 1 mL boluses.? The needle was removed.? The needle insertion site was covered.? The patient tolerated the procedure well and was found suitable for discharge in the company of a responsible adult. Anesthesia: MAC Surgeon: Yaya Johnson Pathology: none sent Condition: stable Disposition: no change
[2025-03-05 09:34] VITALS: BP 115/65; PULSE 72; TEMP 36.7; O2SAT 96
[2025-03-05 09:36] VITALS: BP 114/71; PULSE 74; TEMP 36.7; O2SAT 99
== END 2025-03-05 09:50 | disposition home or self-care (01) ==
LOC: SURGOUT 07:33
PROVIDERS: PCP Family Medicine; Visit Provider Anesthesiology
DX: G90.512 Complex regional pain syndrome I of left upper limb (principal)
CPT/HCPCS: 36415; 64510; 84703; J0665; J1100; J2704; Q9966

== ENCOUNTER 2025-03-21 11:12 | Outpatient (OUT) | payer OTHER, SELFPAY ==
--- OUTSIDE RECORDS SUMMARY | 2025-03-21 11:14 | XMS_ITS | Clinical Summary ---
Author Organization [facility] Address [address], [address] [place] [address] Care Team Providers Care Scraper Hand Name Role Phone Unavailable Primary Care Provider Unavailabl e Allergies Active Allergy Reactions Criticality Noted Date Comments Buspirone Other (See Comments) 04/09/2023 [place] like a zombie [place] Oil Other (See Comments) 04/09/2023 New Skin Other (See Comments) 04/09/2023 Germanium Other (See [...] - 2023-2 5 season) 2024 Flu vaccine (#1) 03/23/2025 05/25/2019, 05/28/2011 HPV vaccine Aged Out No longer [...] patient's age to complete this topic Insurance [facility] [employer] Advance Directives * Full Code (Latest Code Status on File) Date Activated Date Inactivated Comments 03/09/2023 4:19 AM 03/10/2023 8:45 PM * Full Code Date Activated Date Inactivated Comments 02/14/2023 3:23 AM 02/22/2023 5:56 PM Healthcare Agents on File Name Relationship Healthcare Agent [facility] Mary Lara Parent Primary Decision Maker
--- OUTSIDE RECORDS SUMMARY | 2025-03-21 11:14 | XMS_ITS | Clinical Summary ---
Author Organization [facility] Address [address] [place] [address] Phone Care Team Providers Care Weekend Receptionist Name Role Phone Unavailable Primary Care Provider Unavailabl e Social History Tobacco Use Types Packs/Day Years Used Date Smoking Tobacco: Never Assessed Comments Unknown Sex and Gender Information Value Date Recorded Sex Assigned at Not on file Legal Sex Female 3:47 AM EST Gender Identity Not on file Sexual Orientation Not on file Plan of Treatment Not on file
--- OUTSIDE RECORDS SUMMARY | 2025-03-21 11:15 | XMS_ITS | Encounter Summary ---
Author Organization [facility] Address [address] [place] [address] Care Team Providers Care Quarrying Manager Name Role Phone Valdemar Mcclendon MD Primary Care Provider [phone] Encounter Details Date Type Department Care Team (Late st Contact Info) Description 05/14/2023 Abstract [facility] [place] [facility] [address] [place] [id number] Nicolasa Goyal, [facility] [address] [facility] [place] [address] Social History Tobacco Use Types Packs/Day Years [...] on filedocumented in this encounter Care Teams Quarrying Manager Relationship Specialty Start Date End Date Valdemar Mcclendon MD [address] [place] [address] PCP - General Family Medicine 03/17/23 documented as of this encounter
--- OUTSIDE RECORDS SUMMARY | 2025-03-21 11:15 | XMS_ITS | Clinical Summary ---
Author Organization [facility] Address [id number] [place] [address] Care Team Providers Care Final Armature Tester Name Role Phone Valdemar Mcclendon DO Primary Care Provider [phone] Allergies No known active allergies Medications ipratropium-alb [...] 07/17/2024 Medical Devices Not on file Insurance [employer] Care Teams Final Armature Tester Relationship Specialty Start Date End Date Valdemar Mcclendon DO PCP - General 01/06/18
--- OUTSIDE RECORDS SUMMARY | 2025-03-21 11:15 | XMS_ITS | Clinical Summary ---
Author Organization [facility] Address [address] [place] [address] Care Team Providers Care Digital Marketing Program Manager Name Role Phone Valdemar Mcclendon Jose MOREJON Primary Care Provider [phone] Eitan Lewis MD Unavailable [phone] Allergies No known active allergies Medications buPROPion [...] N ot on file 07/28/2020 Data from: [email or web address] Last address used for calculation Not on [...] Covid-19 Vaccine (2023- season) 2024 Influenza Vaccine (#1) 2025 Insurance [facility] MEDICAID Care Teams Digital Marketing Program Manager Relationship Specialty Start Date End Date Valdemar Mcclendon DO PCP - General Family Medicine 06/19/15 Eitan Lewis MD [address] [phone] Primary Staff Physician Cardiology 11/08/18
--- OUTSIDE RECORDS SUMMARY | 2025-03-21 11:15 | XMS_ITS | Clinical Summary ---
Author Organization [facility] Address [address] [place] [address] Care Team Providers Care Studio Control Operator Name Role Phone Valdemar Mcclendon MD Primary Care Provider [phone] Allergies Active Allergy Reactions Criticality Noted Date Comments Buspirone 04/09/2023 Other Reaction(s): Other (See Comments) [place] like a zombie Clonidine Medium 05/18/2023 Other Reaction(s): Unknown [place] Oil 04/09/2023 Other Reaction(s): Other (See Comments), [...] affec ting management of mother, antepartum condition ([facility]) 05/18/2023 Right hand pain 05/18/2023 Fracture of [...] Not on file Insurance [employer] Care Teams Studio Control Operator Relationship Specialty Start Date End Date Valdemar Mcclendon MD [address] [place] [address] PCP - General Family Medicine 03/17/23
--- NOTE | 2025-03-21 11:50 | P.CN_ITS ---
Consult Note: HPI Data of Consult Patient: known to practice within the last 3 years Consult date: 03/21/25 Requesting Physician: Isabella Ontiveros NP Primary Care Provider: AMY NICHOLSON Consult Narrative Reason for consult: left arm pain Narrative: 39yof who presents for assessment. continues to have significant burning pain into left arm. pain seems to have gotten slightly worse, painful to touch. she endorses color changes, temperature changes, increased sensitivity, swelling. has continued in a provider directed home exercise course >6 weeks, without significant benefit. uses lyrica 150mg TID, and states that although she does have some brain fog with it, her pain is much worse without it. pain today 9/10 feels like lava. underwent left stellate ganglgion nerve block #1 with 20% improvement at this time. noticing improvement in ability to tolerate texture of compression sleeve. cc:: CC: Isabella Ontiveros NP Review of Systems ROS Status of ROS 10 or more systems reviewed and unremark able except as noted in history and below PFSH [facility] Medical History (Updated 03/21/25 @ 11:53 by Isabella Ontiveros NP) Low back pain ?M54.50 - Low back pain, unspecified (ICD-10) Heartburn ?R12 - Heartburn (ICD-10) Acid reflux ?K21.9 - Gastro-esophageal reflux disease without esophagitis (ICD-10) Hypoglycemia ?E16.2 - Hypoglycemia, unspecified (ICD-10) Asthma ?J45.909 - Unspecified asthma, uncomplicated (ICD-10) Sleep apnea ?G47.30 - Sleep apnea, unspecified (ICD-10) Irregular heart beat ?I49.9 - Cardiac arrhythmia, unspecified (ICD-10) Surgical History (Updated 02/27/25 @ 15:34 by Sabrina Pisano) H/O tubal ligation ?Z98.51 - Tubal ligation status (ICD-10) H/O: section ?Z98.891 - History of uterine scar from previous surgery (ICD-10) History of tonsillectomy and adenoidectomy ?Z90.89 - Acquired absence of other organs (ICD-10) Meds Home Medications and Allergies Home Medications ?Medication ?Instructions ?Recorded ?Confirmed ?Type acetaminophen 500 mg tablet 1,000 mg PO TID 03/08/23 0 03/05/25 History albuterol sulfate 90 mcg/actuation 2 inh inhalation Q4 H PRN shortness 03/08/23 03/05/25 History aerosol inhaler of breath or wheezing dextroamphetamine-amphetamine 30 30 mg PO BID 03/08/23 03/05/25 History mg tablet methocarbamol 500 mg tablet 500 mg PO Q6H PRN spasms 0 03/08/23 03/05/25 History buspirone 5 mg tablet 5 mg PO TID 09/25/24 5 History escitalopram oxalate 20 mg tablet 20 mg PO DAILY 09/2503/05/25 History (Lexapro) fluticasone propionate 50 intranasal 09/25/24 History mcg/actuation nasal spray,suspension naproxen 500 mg tablet 500 mg PO BID 09/25/2403/05 History topiramate 100 mg tablet (Topamax) 100 mg PO DAILY 11/1403/05/25 History pregabalin 150 mg capsule (Lyrica) 150 mg PO TID #90 c aps 02/28/25 03/05/25 Rx Allergies Allergy/AdvReac Type Severity Reaction Status Date / Time No Known Drug Allergies Allergy Verified 03/05/25 08:00 Exam Narrative Exam Narrative: Psych-alert and oriented x 3.? Attentive and appropriate, constitutionally normal, displays normal mood and affect per situation.? There are no obvious deficits in memory, reasoning, or intellect. Examination of the left upper extremity reveals notable hyperpathia and allodynia.? Notable atrophy and diffuse weakness present in the extremity.? There is reported shiny skin with hair loss and abnormal hair growth denoting t rophic changes presently.? reported Asymmetric color and temperature changes are present which denotes sudomotor changes.? Decreased range of motion and strength is noted in the extremity.? Coordination remains intact.? Gait remains non-antalgic. 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 failed conservative measures, as noted. medication reviewed, no changes. at this time will proceed with left stellate ganglion block #2 under mac sedation, as discussed with pt treatment of CRPS includes a series of sympathetic nerve blocks to improve symptoms, pain, and quailty of life. pt given information on scs trial for future consideration if insurance will not cover stellate ganglion block #2 or she fails to benefit. f/u after injection
== END 2025-03-21 11:13 | disposition home or self-care (01) ==
LOC: PM 11:12
PROVIDERS: PCP Family Medicine; Visit Provider Nurse Practitioner
DX: S52.255A Nondisplaced comminuted fracture of shaft of ulna, left arm, initial encounter for closed fracture (principal); G90.512 Complex regional pain syndrome I of left upper limb
CPT/HCPCS: G0463

== ENCOUNTER 2025-05-20 13:45 | Emergency (ER) | payer OTHER, SELFPAY ==
--- OUTSIDE RECORDS SUMMARY | 2025-05-10 15:00 | XMS_ITS ---
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 Intractable common migraine Irregular periods Lactating mother Left lumbar radiculitis Lumbago Lumbar spine/disc pain Maxillary sinusitis Migraine Migraines Miscarriage Muscle spasm Nausea and vomiting Oral thrush Osteoarthritis Overweight with body mass index (BMI) of 28 to 28.9 in adult Palpitations Patellar luxation Patellar pain Pediculosis Pharyngeal cellulitis Pharyngitis PTSD (post-traumatic stress disorder) Recurrent epistaxis Recurrent major depression-severe Rh negative Right foot drop hx of Right lumbar radiculitis Right lumbar radiculopathy Rotator cuff injury, right shoulder Sexual activity, high risk Sinusitis Situational anxiety Smoker 22-FEB-2014 12:37:00<$> Suicidal ideation Suicide attempt Syncope Tachycardia Urinary frequency Urticaria Vaginal discharge Viral laryngitis Procedure/Surgical History Nerve block (06/01/2012), Lumbar epidural steroid injection (05/20/2011), delivery, Epidural injection of lumbar spine using fluoroscopic guidance, Tonsillectomy. Medications Adderall 30 mg oral tablet, 30 mg= 1 tab(s), Oral, BID Albuterol (Eqv-ProAir HFA) 90 mcg/inh inhalation aerosol, 2 puff(s), Inhalation, q4hr, PRN, 11 refills busPIRone 5 mg Tab, See Instructions Claritin 10 mg Tab, 10 mg= 1 tab(s), Oral, Daily, [address] [facility] MELATONIN 5 MG TABLET Flonase 0.05 mg/inh [place], 50 mcg= 1 spray(s), Nasal, BID, 5 refills Lexapro 20 mg Tab, 20 mg= 1 tab(s), Oral, Daily, 1 refills Pepcid 40 mg Tab, 40 mg= 1 tab(s), Oral, Once a day (at bedtime), 4 refills Pulmicort Flexhaler 180 mcg/inh Powder, 2 puff(s), Inhalation, BID, 11 refills Robaxin-750 oral tablet, 1500 mg= 2 tab(s), Oral, TID, PRN, 3 refills topiramate 100 mg Tab, See Instructions Tylenol Extra Strength 500 mg oral tablet, 1000 mg= 2 tab(s), Oral, TID, PRN, 5 refills Allergies CloNIDine HCl (Unknown) Pollen (Unknown) Adhesive Bandage (Blister) BuSpar (Other) [place] (Unknown) Milk Products (Unknown) Wheat (Unknown) Social History Alcohol - Denies Alcohol Use, 03/06/2016 Household alcohol concerns: No., 12/22/2022 Substance Abuse - Denies Substance Abuse, 06/03/2012 Household substance abuse concerns: No., 12/22/2022 Tobacco - Medium Risk, 12/22/2022 Former smoker, quit more than 30 days ago Tobacco Use:. Never Smokeless Tobacco Use:., 08/01/2024 Family History Acute myocardial infarction: Grandparent. COPD: Father and Grandparent. Clotting disorder: Mother. Diabetes mellitus type 1: Negative: Father and Grandparent. Diabetes mellitus type 2: Grandparent. Hypertension: Father and Grandparent. Metastatic cancer: Grandparent. Stroke: Grandparent. Immunizations Vaccine Date Status Comments influenza virus vaccine, inactivated - Not Given Patient Refuses influenza virus vaccine, inactivated - Not Given Patient Refuses influenza virus vaccine, inactivated - Not Given Patient Refuses SARS-CoV-2 mRNA (emily 5y-11y) vac - Not Given Postpone due to refusal influenza virus vaccine, inactivated 05/25/2019 Recorded diphtheria/pertussis, acel/tetanus adult 09/27/2013 Given influenza virus vaccine, inactivated 05/28/2011 Recorded influenza virus vaccine, inactivated - Not Given Other (see comment) med not available Result Comment: Electronical ly Signed By: DANELLE MOREJON FAAFP, Valdemar Hall\Date and Time Signed: 08/01/24 10:08 EST XR HAND LT 2 VWS Observed: 07/17/2024 3:20 AM Status: COMPLETED Source: [facility] XR HAND LT 2 VWS 2 views left hand HISTORY: Injury, pain COMPARISON: None IMPRESSION: * No acute fracture or malalignment in the left hand. Finalized by Mina Gilbert MD on 07/17/2024 3:49 AM XR FOREARM LT 2 VWS Observed: 07/17/2024 3:18 AM Status: COMPLETED Source: [facility] XR FOREARM LT 2 VWS 2 VIEWS LEFT FOREARM HISTORY: Injury, pain COMPARISON: None IMPRESSION: * Acute nondisplaced mildly comminuted fractures of the mid shafts of both the left radius and ulna. Finalized by Mina Gilbert MD on 07/17/2024 3:49 AM CBC AND AUTO DIFF Collected: 07/17/2024 2:00 AM Status: COMPLETED Source: [facility] TYPE CODE TESTS RESULT OUT OF RANGE REFERENCE UNITS LAB WBC(LOINC) WBC COUNT 7.4 4.0-11.0 X10E9/L LAB RBC(LOINC) RBC COUNT 4.26 3.80-5.20 X10E12/L LAB HGB(LOINC) HEMOGLOBIN 12.2 11.7-15.5 g/dL LAB HCT(LOINC) HEMATOCRIT 36.9 35-47 % LAB MCV(LOINC) MCV 87 80-100 fL LAB MCH(LOINC) MCH 28.6 27-34 pg LAB MCHC(LOINC) MCHC 33.0 32-36 g/dL LAB RDW(LOINC) RDW 13.9 11.5-15.0 % LAB PLTC(LOINC) PLATELET COUNT 345 150-450 X10E9 /L LAB MPV(LOINC) MPV 7.6 7-12 fL LAB NEUT(LOINC) % NEUTROPHILS 72.8 % LAB LYMP(LOINC) % LYMPHOCYTES 19.0 % LAB MONO(LOINC) % MONOCYTES 5.0 % LAB EOS(LOINC) % EOSINOPHILS 2.9 % LAB BASO(LOINC) % BASOPHILS 0.3 % LAB ANEUT(LOINC) ABSOLUTE NEUTROPHIL 5.4 1.5-6.6 X10E9/L LAB ALYMP(LOINC) ABSOLUTE LYMPHOCYTE 1.4 1.0-3.5 X10E9/L LAB AMONO(LOINC) ABSOLUTE MONOCYTE 0.4 0-0.9 X10E9/L LAB AEOS(LOINC) ABSOLUTE EOSINOPHIL 0.2 0.0-0.4 X10E9/L LAB ABASO(LOINC) ABSOLUTE BASOPHIL 0.0 0.0-0.2 X10E9/L Performed By: #### CBCA, PIN R, CMP, 2157-6 #### [facility] ([id number]) [address] [place] [address], [place] [address] PROTIME AND INR Collected: 07/17/2024 2:00 AM Status: COMPLETED Source: [facility] TYPE CODE TESTS RESULT OUT OF RANGE REFERENCE UNITS LAB PROX(LOINC) PROTIME 11.7 9.8-13.2 sec Result Comment: NEW REFERENC E RANGE LAB INR(LOINC) INR 1.0 0.8-1.1 Performed By: #### MG MCCRARY, [place], 2157-6 #### [facility] ([id number]) [address] [place] [address], [place] [address] COMPREHENSIVE METABOLIC PANEL Collected: 2023 2:00 AM Status: COMPLETED Source: [facility] TYPE CODE TESTS RESULT OUT OF RANGE REFERENCE UNITS LAB NA(LOINC) SODIUM 132 Low 134-146 mmol/L LAB K(LOINC) POTASSIUM 3.5 3.5-5.0 mmol/L LAB CL(LOINC) CHLORIDE 106 98-109 mmol/L LAB CO2(LOINC) CARBON DIOXIDE 22 22-32 mmol/L LAB AGAP(LOINC) ANION GAP 4 Low 5-15 mmol/L LAB BUN(LOINC) BLOOD UREA NITROGEN 10 5-23 mg/dL LAB CRET(LOINC) CREATININE 0.78 0.40-1.00 mg/dL Result Comment: METHOD TRACE ABLE TO IDMS STANDARD LAB GLU(LOINC) GLUCOSE 99 65-99 mg/dL LAB CA(LOINC) CALCIUM 8.9 8.5-10.5 mg/dL LAB TP(LOINC) TOTAL PROTEIN 7.9 6.0-8.0 g/dL LAB ALB(LOINC) ALBUMIN 3.8 3.2-5.3 g/dL LAB ALK(LOINC) ALKALINE PHOSPHATASE 108 39-130 U/L LAB AST(LOINC) AST 29 0-41 U/L LAB ALT1(LOINC) ALT 40 High 0-31 U/L LAB TBIL(LOINC) BILIRUBIN,TOTAL 0.3 0.3-1.2 mg/d L LAB EGFR(LOINC) eGFR (CKD-EPI) NON-RACE DEPENDENT >90 >59 ml/min/1 .73sq.m Result Comment: Reported eGFR is based on the CKD-EPI 2020 equation that does not use a race coefficient. Performed By: #### MG MCCRARY, [place], 2157-6 #### [facility] ([id number]) [address] [place] [address], [place] [address] CPK Collected: 07/17/2024 2:00 AM S tatus: COMPLETED Source: [facility] TYPE CODE TESTS RESULT OUT OF RANGE REFERENCE UNITS LAB CPK(LOINC) CPK 108 24-170 U/L Performed By: #### CBCA, PIN R, CMP, 2157-6 #### [facility] ([id number]) [address] [place] [address], [place] [address] ALLERGIES DATE TYPE / CODE NAME / CODE REACTION SEVERITY SOURCE /[id number](SNOMED CT) No Known Allergies [facility] Miscellaneous Allergy/197665556(SNO MED CT) Adhesive Bandage [id number] [facility] /418352957(SNOMED CT) [place] [id number] [facility] /012360968(SNOMED CT) Milk Products 156427661 [facility] /691262461(SNOMED CT) Pollen 622967895 Moderate (Severity Modifier) (Qualifier Value) [facility] DENISA297980573(SNOMED CT) Wheat 824610532 [facility] /937452873(SNOMED CT) BuSpar 948896597 [facility] /216800647(SNOMED CT) CloNIDine HCl 565524071 Moderate (Severity Modifier) (Qualifier Value) [facility] Drug Class/560655423(SNOME D CT) NO KNOWN ALLERGIES [facility] ENCOUNTERS ADMIT/DISCHARGE ACCOUNT NUMBER ADMITTING ENCOUNTER CLASS LOCATION SOURCE 05/10/2025/05/10/20 [id number] Ambulatory [place] PCRoom: Exam 2 [facility] 03/05/2025/03/05/20 [id number] Ambulatory PM [facility] ding:PM [facility] 02/27/2025/02/28/20 [id number] Valdemar NICHOLSON Ambulatory FTBuilding :FT LAB [facility] 02/27/2025 [id number] Valdemar NICHOLSON Ambulatory FTBuilding :FT LAB [facility] 02/08/2025/02/09/20 25 [id number] Ambulatory [place] PCBuilding:N [place] PCRoom: Exam 2 [facility] 01/22/2025/01/23/20 25 [id number] [place]:PM [facility] 10/31/2024/11/01/19 25 [id number] Ambulatory [place] PCBuilding:[place] PCRoom: Exam 1 [facility] 10/30/2024/10/31/19 25 [id number] Ambulatory PM [place]:PM [facility] 09/25/2024/09/25/19 25 [id number] Ambulatory PM [place]:PM [facility] 08/01/2024/08/01/20 24 [id number] Ambulatory [place] PCBuilding:N [place] PCRoom: Exam 3 [facility] 07/17/2024/07/17/20 24 [id number] Emergency Building:[facility] _EDRoom: 1Bed: 01 [facility] PAYERS ENCOUNTER GUARANTOR PAYER SUBSCRIBER SOURCE 05/10/2025 FELISA OROZCO: HERON AGUILERAETel: [phone] (HP) Primary Insurance[facility] Number: [id number] ve Date:7823-37-42ZO [place] [address], [place] [address]JV: FELISA TOMPKINS [facility] 03/05/2025 Felisa HernandezOB: [place] [address] Primary Insurance:[employer] BWCPolicy Number: Effective Date:1958-18-[birth year]Iren Name:[id number] [place] [address]FC: Felisa HernandezOB: [id number] [place] [address] [facility] 02/27/2025 FELISA NGOCLDOB: HERON AVETel: [phone] (HP) Primary Insurance:[facility] Cent[facility] Number: [id number] ve Date:9713-40-68SB [address] [place] [address]RQ: [facility] 02/27/2025 FELISA NGONEYB: HERON AVETel: ~[phone] (HP) Primary Insurance:[facility] Number: [id number] ve Date:4358-47-57AZ [address] [place] [address]DF: [facility] 02/08/2025 FELISA NELSONLDOB: HERON AVETel: ~[phone] (HP) Primary Insurance:[facility] Number: [id number] ve Date:3806-19-15DX [address] [address]KM: [facility] [facility] 01/22/2025 Felisa HernandezOB: [place] [address] Primary Insurance:[employer] BWCPolicy Number: Effective Date:2918-49-70Xjzg Name:[id number] [place] [address]BZ: Felisa HernandezOB: [id number] [place] [address] [facility] 10/31/2024 FELISA NELSONLDOB: HERON AVETel: ~[phone] (HP) Primary Insurance:[facility] Centery Number: [id number] ve Date:3286-49-03[address], [place] [address]VI: FELISA CharityCHUCKJHParmjitMichelle [facility] 10/30/2024 Felisa Harris JustusKiannaThaisOB: [place] [id number] Primary Insurance:[employer] BWCPolicy Number: Effective Date:3895-07-98Dous Name:[id number] [place] [address]BB: Felisa Harris JustusKiannaThaisOB: [id number] [address] 09/25/2024 Felisa Harris JustusKiannaThaisOB: [address] Primary Insurance:[employer] BWCPolicy Number: Effective Date:1258-34-56Ztvk Name:[id number] [place] [address]QH: Felisa Harris MaryOB: [id number] [place] [address] [place] [address] 08/01/2024 FELISA MARYOB: HERON AVETel: [phone] (HP) Primary Insurance:AETNAPoli cy Number: [id number] Date:4539-59-01[address] [address]FY: FELISA OMARJHMAURICIO [facility] 07/17/2024 [id number] AND DWIGHTDOB: [place], [place] [address]Hdo: (HP) Primary Insurance:WORKER'S COMPENSATION-VENDOR -HOSP ONLYPolicy Number: [id number] Date: FELISA GOODENB: [id number] [facility] SYSTEMSUETINNIE, [place] [address]Zgm: () (WP) [facility]
[2025-05-20 13:56] VITALS: BP 126/76; PULSE 73; TEMP 36.7; O2SAT 100; BMI 22.7
--- NOTE | 2025-05-20 14:47 | CT_ITS ---
The [address] [address] Patient Name: FELISA JONES MRN: [id number] date: 1985 Sex: F Assigned Patient Location: ER Current Patient Location: Accession/Order Number: [id number] Exam Date: 05/20/2025 15:06 Report Date: 05/20/2025 15:32 At the request of: ELADIO SANCHEZ MD Procedure: CT head/brain wo con CT head/brain wo con 05/20/2025 3:30 PM SIGNS AND SYMPTOMS: Head injury, facial pain, right ankle pain TECHNIQUE:Multi-detector CT axial slices of the brain were obtained without IV contrast. CT was performed with one or more of the following dose reduction techniques: Automated exposure control, adjustment of the mA and/or kV according to patient size, or use of iterative reconstruction technique. COMPARISON: 03/08/2023. FINDINGS: There is no shift of the midline structures, acute intracranial bleeding, mass effects, or evidence of acute ischemia. The ventricular system is normal in size. The brainstem and the cerebellum are unremarkable. The visualized intraorbital contents, the visualized paranasal sinuses, and the infratemporal soft tissues show no acute abnormality. The osseous structures in the skull base and the calvarium show no abnormality. Soft tissue swelling is noted over the forehead and bridge of the nose. CT/CT head/brain wo con IMPRESSION: No acute intracranial pathology. Soft tissue swelling is noted over the forehead and bridge of the nose. Impression dictated by: Humza Grijalva M.D. 05/20/2025 3:32 PM Dictation Location: [place] [address] Electronically authenticated by: [id number] Y Date: 05/20/2025 15:32
--- NOTE | 2025-05-20 14:47 | XR_ITS ---
The [address] [address] Patient Name: FELISA JONES MRN: [id number] date: 1985 Sex: F Assigned Patient Location: ER Current Patient Location: ER Accession/Order Number: [id number] Exam Date: 05/20/2025 15:06 Report Date: 05/20/2025 15:41 At the request of: ELADIO SANCHEZ MD Procedure: XR ribs LT min 3V w CXR1V XR ribs LT min 3V w CXR1V 05/20/2025 3:30 PM SIGNS AND SYMPTOMS: Fall, left rib pain PROTOCOL: Frontal radiograph of the chest with oblique radiographs of the left ribs COMPARISON: None FINDINGS: The trachea is midline. The heart and mediastinal structures are within normal limits. The lung parenchyma is clear. The bony thorax is intact. There is a dextro convex curvature of the thoracic spine. No acute displaced rib fracture. XR/XR ribs LT min 3V w CXR1V IMPRESSION: No acute cardiopulmonary pathology. No acute displaced rib fracture. Impression dictated by: Humza Grijalva M.D. 05/20/2025 3:41 PM Dictation Location: [place] [address] Electronically authenticated by: [id number] Y Date: 05/20/2025 15:41
--- NOTE | 2025-05-20 14:50 | ED.GENADUL1 ---
HPI HPI - General Adult General Chief complaint: Fall Stated complaint: HEAD INJURY - 05/19/2025 Time Seen by Provider: 05/20/25 14:40 Source: patient Mode of arrival: walk-in Limitations: no limitations History of Present Illness HPI narrative: 39-year-old female presented to the emergency department for an injury to her forehead and her left ribs. She fell twice yesterday. She states she was at a hotel and she fell because she slipped off the toilet reaching for toilet paper her left arm is a sling because of chronic nerve damage. Later on she fell and hit the back of her head and her left posterior lateral rib region. The pain is moderate and continuous. Related Data Home Medications ?Medication ?Instructions ?Recorded ?Confirmed acetaminophen 500 mg tablet 1,000 mg PO TID 03/08/23 03/05/25 albuterol sulfate 90 mcg/actuation 2 inh inhalation Q4H PRN shortness 03/08/23 03/05/25 aerosol inhaler of breath or wheezing dextroamphetamine-amphetamine 30 30 mg PO BID 03/08/23 03/05/25 mg tablet methocarbamol 500 mg tablet 500 mg PO Q6H PRN spasms 03/08/23 03/05/25 buspirone 5 mg tablet 5 mg PO TID 09/25/24 03/05/25 escitalopram oxalate 20 mg tablet 20 mg PO DAILY 09/25/24 03/05/25 (Lexapro) fluticasone propionate 50 intranasal 09/25/24 mcg/actuation nasal spray,suspension naproxen 500 mg tablet 500 mg PO BID 09/25/24 03/05/25 topiramate 100 mg tablet (Topamax) 100 mg PO DAILY 09/25/24 03/05/25 Previous Rx's ?Medication ?Instructions ?Recorded pregabalin 150 mg capsule (Lyrica) 150 mg PO TID #90 caps 02/28/25 pregabalin 150 mg capsule (Lyrica) 150 mg PO TID #90 caps 05/01/25 Allergies Allergy/AdvReac Type Severity Reaction Status Date / Time No Known Drug Allergies Allergy Verified 05/20/25 13:56 Opioid HPI Opioid Management Most Recent Opioid Data: Last Pain Scale 8 Today, 13:56 Review of Systems ROS Narrative A ten point review of systems is negative except as noted above. PFSH PFSH Medical History (Updated 05/20/25 @ 16:15 by Reji Hughes MD) Low back pain ?M54.50 - Low back pain, unspecified (ICD-10) Heartburn ?R12 - Heartburn (ICD-10) Acid reflux ?K21.9 - Gastro-esophageal reflux disease without esophagitis (ICD-10) Hypoglycemia ?E16.2 - Hypoglycemia, unspecified (ICD-10) Asthma ?J45.909 - Unspecified asthma, uncomplicated (ICD-10) Sleep apnea ?G47.30 - Sleep apnea, unspecified (ICD-10) Irregular heart beat ?I49.9 - Cardiac arrhythmia, unspecified (ICD-10) Surgical History (Updated 02/27/25 @ 15:34 by Sabrina Pisano) H/O tubal ligation ?Z98.51 - Tubal ligation status (ICD-10) H/O: section ?Z98.891 - History of uterine scar from previous surgery (ICD-10) History of tonsillectomy and adenoidectomy ?Z90.89 - Acquired absence of other organs (ICD-10) Social History Little interest or pleasure in doing things: not at all Feeling down, depressed, or hopeless: not at all Exam Narrative Exam Narrative: Nurses note and vital signs reviewed and patient is not hypoxic. General:The patient appears well and in no apparent distress.Patient is resting comfortably on cart. Skin:Warm, dry, no pallor noted.There is no rash noted. Head:Normocephalic, hematoma present on the forehead. No laceration. Cervical spine nontender. Eye: Normal conjunctiva, no drainage Ears, Nose, Mouth, and Throat: oral mucosa is moist. Nares patent. Cardiovascular:Regular Rate and Rhythm Respiratory:Patient is in no distress, no accessory muscle use, lungs are clear to auscultation, no wheezing, rales or rhonchi Back: Tenderness to palpation of the left posterior lateral rib region. No crepitus bruise rash or abrasion. GI: Soft and nontender Musculoskeletal: Left arm is in a sling. The left shoulder is not tender Neurological:A&O, normal speech Psychiatric:Cooperative Constitutional Vital Signs, click to edit/add: Last Vital Signs Temp 98.1 F 05/20/25 13:56 Pulse 73 05/20/25 13:56 Resp 16 05/20/25 13:56 BP 126/76 05/20/25 13:56 Pulse Ox 100 05/20/25 13:56 O2 Del Method Room Air 05/20/25 13:56 Course Vital Signs Vital signs: Vital Signs Temperature 98.1 F 05/20/25 13:56 Pulse Rate 73 05/20/25 13:56 Respiratory Rate 16 05/20/25 13:56 Blood Pressure 126/76 05/20/25 13:56 Pulse Oximetry 100 05/20/25 13:56 Oxygen Delivery Method Room Air 05/20/25 13:56 Temperature 98.1 F 05/20/25 13:56 Pulse Rate 73 05/20/25 13:56 Respiratory Rate 16 05/20/25 13:56 Blood Pressure 126/76 05/20/25 13:56 Pulse Oximetry 100 05/20/25 13:56 Oxygen Delivery Method Room Air 05/20/25 13:56 Medical Decision Making MDM Narrative Medical decision making narrative: Radiographs are negative and she is able to be discharged home. Treatment diagnosis and follow-up were discussed with the patient. Differential Diagnosis Differential Diagnosis: Contusions, intracranial hemorrhage, facial fracture, facial contusion Imaging Data CT scan - head: Radiologist's impression: ITS Impressions Head CT 05/20/25 14:47 IMPRESSION: No acute intracranial pathology. Soft tissue swelling is noted over the forehead and bridge of the nose. Impression dictated by: Humza Grijalva M.D. 05/20/2025 3:32 PM Dictation Location: [place] Electronically authenticated by: [id number] Y Date: 05/20/2025 15:32 Ribs X-Ray 05/20/25 14:47 IMPRESSION: No acute cardiopulmonary pathology. No acute displaced rib fracture. Impression dictated by: Humza Grijalva M.D. 05/20/2025 3:41 PM Dictation Location: [place] Electronically authenticated by: [id number] Y Date: 05/20/2025 15:41 Ankle X-Ray 05/20/25 15:04 IMPRESSION: No acute bony injury. Soft tissue swelling is noted greatest anteriorly. Impression dictated by: Humza Grijalva M.D. 05/20/2025 3:41 PM Dictation Location: [place] Electronically authenticated by: [id number] Y Date: 05/20/2025 15:[address] 05/20/25 15:05 IMPRESSION: No evidence of fracture or dislocation. Soft tissue swelling is noted along the bridge of the nose and over the forehead. Impression dictated by: Humza Grijalva M.D. 05/20/2025 3:44 PM Dictation Location: [place] Electronically authenticated by: [id number] Y Date: 05/20/2025 15:44 Discharge Plan Discharge Chief Complaint: Fall Clinical Impression: Multiple contusions Patient Disposition: Home, Self-Care Time of Disposition Decision: 16:15 Condition: Good Mode of Transportation: Private Vehicle Prescriptions / Home Meds: No Action acetaminophen 500 mg tablet 1,000 mg PO TID albuterol sulfate 90 mcg/actuation HFA aerosol inhaler 2 inh INHALATION Q4H PRN (Reason: shortness of breath or wheezing) dextroamphetamine-amphetamine 30 mg tablet 30 mg PO BID methocarbamol 500 mg tablet 500 mg PO Q6H PRN (Reason: spasms) escitalopram oxalate [Lexapro] 20 mg tablet 20 mg PO DAILY naproxen 500 mg tablet 500 mg PO BID buspirone 5 mg tablet 5 mg PO TID topiramate [Topamax] 100 mg tablet 100 mg PO DAILY fluticasone propionate 50 mcg/actuation spray,suspension INTRANASAL pregabalin [Lyrica] 150 mg capsule 150 mg PO TID Qty: 90 0RF pregabalin [Lyrica] 150 mg capsule 150 mg PO TID Qty: 90 0RF Rx Instructions: MUST LAST 30 DAYS Print Language: Slovak Instructions: Contusion in Adults (ED) Referrals: AMY NICHOLSON [Primary Care Provider, Family Practice] - 1 week
--- NOTE | 2025-05-20 15:04 | XR_ITS ---
The [address] [address] Patient Name: FELISA JONES MRN: [id number] date: 1985 Sex: F Assigned Patient Location: ER Current Patient Location: ER Accession/Order Number: [id number] Exam Date: 05/20/2025 15:06 Report Date: 05/20/2025 15:41 At the request of: ELADIO SANCHEZ MD Procedure: XR ankle RT min 3V XR ankle RT min 3V 05/20/2025 3:30 PM SIGNS AND SYMPTOMS: ^fall, right ankle pain PROTOCOL: Frontal, lateral, and oblique radiographs of the right ankle COMPARISON: None FINDINGS: The ankle mortise is preserved. There is no acute displaced fracture. There is soft tissue swelling which is greatest anteriorly. XR/XR ankle RT min 3V IMPRESSION: No acute bony injury. Soft tissue swelling is noted greatest anteriorly. Impression dictated by: Humza Grijalva M.D. 05/20/2025 3:41 PM Dictation Location: [place] [address] Electronically authenticated by: [id number] Y Date: 05/20/2025 15:41
--- NOTE | 2025-05-20 15:05 | CT_ITS ---
The [address] [address] Patient Name: FELISA JONES MRN: [id number] date: 1985 Sex: F Assigned Patient Location: ER Current Patient Location: Accession/Order Number: [id number] Exam Date: 05/20/2025 15:06 Report Date: 05/20/2025 15:44 At the request of: ELADIO SANCHEZ MD Procedure: CT facial bones wo con CT facial bones wo con 05/20/2025 3:30 PM SIGNS AND SYMPTOMS: Fall, head injury, facial pain TECHNIQUE: Multidetector CT axial slices of the facial bones were obtained. Helical, sagittal, coronal, and 3-D reconstructions were performed and viewed on a separate workstation and reviewed to further define anatomy and possible pathology. CT was performed with one or more of the following dose reduction techniques: Automated exposure control, adjustment of the mA and/or kV according to patient size, or use of iterative reconstruction technique. COMPARISON: None. FINDINGS: Fracture: None. Paranasal sinuses and mastoids: Well aerated. Soft tissue swelling: Soft tissue swelling is noted along the bridge of the nose and over the forehead. Globes: Intact. Upper aerodigestive tract: Within normal limits. Joints: Intact. Temporal mandibular joints: Degenerative changes are noted bilaterally. Infratemporal fossa: Within normal limits. CT/CT facial bones wo con IMPRESSION: No evidence of fracture or dislocation. Soft tissue swelling is noted along the bridge of the nose and over the forehead. Impression dictated by: Humza Grijalva M.D. 05/20/2025 3:44 PM Dictation Location: [place] [address] Electronically authenticated by: [id number] Y Date: 05/20/2025 15:44
== END 2025-05-20 16:24 | disposition home or self-care (01) ==
PROVIDERS: Emergency Provider Emergency Medicine; PCP Family Medicine
DX: T14.8XXA Other injury of unspecified body region, initial encounter (principal); S00.83XA Contusion of other part of head, initial encounter; W18.11XA Fall from or off toilet without subsequent striking against object, initial encounter; Y93.89 Activity, other specified; Y92.59 Other trade areas as the place of occurrence of the external cause
CPT/HCPCS: 70450; 70486; 71101; 73610; 76376; 99284

== ENCOUNTER 2025-05-28 06:57 | Day surgery (SDC) | payer OTHER, SELFPAY ==
--- OUTSIDE RECORDS SUMMARY | 2025-05-28 07:00 | XMS_ITS | Clinical Summary ---
Author Organization [facility] Address [address], [address] [place] [address] Care Team Providers Care Incoming Inspector Name Role Phone Unavailable Primary Care Provider Unavailabl e Allergies Active Allergy Reactions Criticality Noted Date Comments Buspirone Other (See Comments) 04/09/2023 [place] like a zombie [place] Other (See Comments) 04/09/2023 New Skin [...] (2 - Td or Tdap) 09/27/2023 09/27/2013 Flu vaccine (#1) 03/23/2025 05/25/2019, 05/28/2011 COVID-19 Vaccine (1 - 2023-2 5 season) 2025 HPV vaccine (No Doses Required) Completed Hepatitis A vaccine Aged Out No longe [...] patient's age to complete this topic Insurance [facility] T Advance Directives * Full Code (Latest Code Status on File) Date Activated Date Inactivated Comments 03/09/2023 4:19 AM 03/10/2023 8:45 PM * Full Code Date Activated Date Inactivated Comments 02/14/2023 3:23 AM 02/22/2023 5:56 PM Healthcare Agents on File Name Relationship [facility] L[facility] Parent Primary Decision Maker
--- OUTSIDE RECORDS SUMMARY | 2025-05-28 07:00 | XMS_ITS | Clinical Summary ---
Author Organization [facility] Address [address] [place] [address] Care Team Providers Care Machine Stamper Name Role Phone Valdemar Mcclendon MD Primary Care Provider [phone] Allergies Active Allergy Reactions Criticality Noted Date Comments Buspirone 04/09/2023 Other Reaction(s): Other (See Comments) [place] like a zombie Clonidine Medium 05/18/2023 Other Reaction(s): Unknown [place] Oil 04/09/2023 Other Reaction(s): Other (See Comments), [...] affec ting management of mother, antepartum condition ([facility]) 05/18/2023 Right hand pain 05/18/2023 Fracture of [...] of Treatment Not on file [place] [facility] [place] Address: [facility] [id number] [place] [address] Care Teams Machine Stamper Relationship Specialty Start Date End Date Valdemar Mcclendon MD [address] [place] [address] PCP - General Family Medicine 03/17/23
--- OUTSIDE RECORDS SUMMARY | 2025-05-28 07:00 | XMS_ITS | Encounter Summary ---
Author Organization [facility] Address [address] [place] [address] Care Team Providers Care Base Filler Name Role Phone Valdemar Mcclendon MD Primary Care Provider Encounter Details Date Type Department Care Team (Late st Contact Info) Description 05/14/2023 Abstract [facility] [place] [facility] [address] [place] [id number] Nicolasa Goyal, [facility] [address] [facility] [place] [address] Social History Tobacco Use Types Packs/Day Years [...] on filedocumented in this encounter Care Teams Base Filler Relationship Specialty Start Date End Date Valdemar Mcclendon MD [address] [place] [address] PCP - General Family Medicine 03/17/23 documented as of this encounter
--- OUTSIDE RECORDS SUMMARY | 2025-05-28 07:00 | XMS_ITS | Clinical Summary ---
Author Organization [employer] [facility] Address [facility] [id number] [address] [place] [address] Care Team Providers Care Insulator Tester Name Role Phone Valdemar Mcclendon Primary Care Provider [phone] Allergies No known active allergies Medications ipratropium-alb [...] Insurance [employer] Care Teams Insulator Tester Relationship Specialty Start Date End Date Valdemar Mcclendon DO PCP - General 01/06/18
--- OUTSIDE RECORDS SUMMARY | 2025-05-28 07:00 | XMS_ITS | Clinical Summary ---
Author Organization [facility] Address [address] [place] [address] Care Team Providers Care Senior Information Security Consultant Name Role Phone Valdemar Mcclendon Jose MOREJON Primary Care Provider [phone] Eitan Lewis MD Unavailable [phone] Allergies No known active allergies Medications buPROPion [...] N ot on file 07/28/2020 Data from: [email or web address] Last address used for calculation [...] 3-dose series) 06/27 Cervical Cancer Screening 2006 HPV Vaccine (1 - 3-dose SCDM series) 2012 Covid-19 Vaccine (1 - 2024- season) 2025 Influenza Vaccine (#1) 2025 Insurance [facility] MEDICAID Care Teams Senior Information Security Consultant Relationship Specialty Start Date End Date Valdemar Mcclendon DO PCP - General Family Medicine 06/19/15 Eitan Lewis MD [address] [facility] [address] [place] [address] Primary Staff Physician Cardiology 11/08/18
--- OUTSIDE RECORDS SUMMARY | 2025-05-28 07:00 | XMS_ITS | Clinical Summary ---
Author Organization [facility] Address [address] [place] [address] Phone Care Team Providers Care Firesetter Name Role Phone Unavailable Primary Care Provider [...]
--- OUTSIDE RECORDS SUMMARY | 2025-05-28 07:01 | XMS_ITS | CCD ---
Author Organization [facility] Care Team Providers Care Faith Doctor Name Role Phone SORAYAEITAN KORTNEY Unavailable Unavailab VLADEMAR Don Unavailable Unavailable ANDREW, DR CRISS Harris Consulting Unavailable REQUEST, NONE LISTED Primary Care Unavaila JOSLYN Smith Admitting Unavailable DIANE, JOSLYN Attending Unavailable JOSLYN CONTRERAS Consulting Unavailable REQUEST, NONE LISTED Primary Care Unavaila ble DIANE, JOSLYN Admitting Unavailable DIANE, JOSLYN Attending Unavailable JOSLYN CONTRERAS Consulting Unavailable ANA, DR KEEN Admitting Unavailable KARASIK, DR KEEN Attending Unavailable KARASIK, DR KEEN Consulting Unavailable REQUEST, NONE LISTED Primary Care Unavaila ble ELICIA, DR HOFFMAN Primary Care Unavailable JOSLYN CONTRERAS Admitting Unavailable JOSLYN CONTRERAS Attending Unavailable JOSLYN CONTRERAS Consulting Unavailable CHRISTIAN, DR CLAUDETTE Harris Consulting Unavailable DIANE, JOSLYN Primary Care Unavailable CHRISTIAN, DR CLAUDETTE Harris Admitting Unavailable CHRISTIAN, DR CLAUDETTE Harris Attending Unavailable CHRISTINA BURRIS Consulting Unavailable KARASIK, DR KEEN Attending Unavailable KARASIK, DR KEEN Consulting Unavailable REQUEST, NONE LISTED Primary Care Unavaila ble KARASIK, DR KEEN Admitting Unavailable KARASIK, DR KEEN Attending Unavailable REQUEST, NONE LISTED Primary Care Unavaila ble DARI PLUMMER Consulting Unavailable KARASIK, DR KEEN Admitting Unavailable KARASIK, DR KEEN Attending Unavailable KARASIK, DR KEEN Admitting Unavailable KARASIK, DR KEEN Consulting Unavailable REQUEST, NONE LISTED Primary Care Unavaila ble MANE RAMÍREZ Consulting Unavailable REQUEST, NONE LISTED Primary Care Unavaila ble JOSLYN CONTRERAS Consulting Unavailable DIANE, JOSLYN Admitting Unavailable JOSLYN CONTRERAS Attending Unavailable Valdemar MCCLENDON Primary Care Physician [phone] Nimisha Ramirez I Unavailable Unavailable Chantelle Wasserman Unavailable Unavailable Karen Marshall Unavailable Unavailable Primary Care Provider Unavailabl e [...] Brent Langston Consulting Unavailable Guicho Mejia Consulting Unavailabl Umang Black Consulting Unavailable Mikaela Sellers Consulting Unavailable Deanna Nation Consulting Unavailable Zari Carroll Consulting Unavailable Raghavendra Long Consulting Unavailable Mirtha Christian Consulting Unavailable Hanna Bernardo Consulting Unavailable Raymon Joaquin Consulting Unavailable Angelo Hewitt Consulting Unavailable Man Gilliam Consulting Unavailable Mariel Guerrero Consulting Unavailable DoDavid simpson Consulting Unavailab Contreras Peralta Consulting Unavailable Ruel Hoffman Consulting Unavailable Royal Verduzco Consulting Unavailable Leuxs Stock Consulting Unavailable Vu Dinero Consulting Unavailable Jt Muir Consulting Unavailable ObLaila blake Consulting Unavailable Juan Trevino Consulting Unavailable DarnellomaHowie harris Consulting Unavailable Venita Dodd Consulting Unavailable Mary Damon Consulting Unavailable Alamedinaad Alaa Consulting Unavailable Alfredo Manjarrez Consulting Unavailable Nataly Mullen Consulting Unavailable AFSADIAH AMER GERMAN-HAFIZ Admitting Unavail able ALEK AMER GERMAN-HAFIZ Consulting Unavail able AFANEH AMER GERMAN-HAFIZ Attending Unavail able AHALiberty MEJIAUBAIR Consulting Unavailable ADRIAN AMEER Consulting Unavailable JOAN DAVIS Consulting Unavailable TARA ROCKWELL Consulting Unavailable YARA KING Referring Unavailable YARA KING Referring Unavailable FELISA SEGURA Admitting Unavailable FELISA SEGURA Attending Unavailable RADHIKA DOLAN Consulting Unavailable RENALDO THOMAS Consulting Unavailable VALDEMAR MCCLENDON Primary Care Unavailable SEAN MCKINLEY Attending Quiana Olsen Primary Care Physician Unavai lable Sanders, Quiana G Unavailable Unavailable KAPLE, Valdemar A Attending Unavailable KAPLE, Valdemar A Admitting Unavailable Giedraitis , Andtramaine Feliciano Attending Unavailable Giedraitis , Andrius Feliciano Attending Unavailable Giedraitis MD, Andrius Feliciano Attending Unavailable Giedraitis MD, Andrius Feliciano Attending Unavailable KAPALICIA, Valdemar A Attending Unavailable KAPALICIA, Valdemar A Attending Unavailable KAPALICIA, Valdemar A Attending Unavailable KAPLE, Valdemar A Admitting Unavailable KAPLE, Valdemar A Attending Unavailable KAPLE, Valdemar A Attending Unavailable KAPLE, Valdemar A Attending Unavailable Allergies Allergy Classification Reported Allergen(s) Allergy Type Date of Onset Reaction(s) Facility (1 source) [place] Drug Allergy 4 [facility] Repository (20 sources) cloNIDine; Translations: [clonidine] Drug Allergy Unknown (qualifier value) [facility] (20 sources) corn extract; Translations: [[place]] Drug Allergy Unknown (qualifier value) [facility] (20 sources) Pollen; Translations: [Pollen] Drug allergy Unknown (qualifier value) [facility] (20 sources) Wheat preparation; Translations: [Wheat] Drug Allergy Unknown (qualifier value) [facility] (16 sources) Milk Products 1 Drug allergy Unknown (qualifier value) [facility] Comment on above: MILK NOS (17 sources) busPIRone; Translations: [buspirone] Drug Allergy Other (qualifier value) [facility] Comment on above: [place] like a zombie (17 sources) Adhesive bandage; Translations: [Adhesive Bandage] Allergy to substance Blister of skin AND/OR mucosa (finding) [facility] (1 source) tape adhesive Propensity to adverse reactions Unknown Mydeo Other (2 sources) dairy Propensity to adverse reactions Unknown Mydeo Other (1 source) adhesive tape/bandaid Allergy to substance (disorder) [facility] (2 sources) Milk Products 2 Drug allergy Unknown (qualifier value) [facility] Comment on above: MILK NOS (3 sources) busPIRone; Translations: [BuSpar] Drug Allergy [facility] Repository (3 sources) Milk Products; Translations: [Milk Products] Propensity to adverse reactions (disorder) [facility] Repository Medications Current Medications Medication Drug Class(es) Dates Sig (Normalized) Sig (Original) acetaminophen 500 mg oral tablet (14 sources) Start: 04-22-2023 take 2 tablets by mouth three times daily as needed for pain Tylenol Extra Strength 500 mg oral tablet 1,000 mg = 2 tab(s), Oral, TID, PRN as needed for pain, # 100 tab(s), Refills(s) 5, Pharmacy: [facility]/pharmacy #[id number], 170, cm, 04/15/23 12:22:00 EDT, Height/Length Dosing, 75.3, kg, 04/15/23 12:22:00 EDT, Weight Dosing Start Date: 04/22/23 Status: Ordered Quantity: 100.0 Unit: tab(s) Repeat number: 6 Start: 03-09-2023 acetaminophen (TYLENOL) tablet 1,000 mg Start: 02-22-2023 End: 03-01-2023 take 2 tablets by mouth every eight hours acetaminophen (TYLENOL) 500 MG tablet Take 2 tablets by mouth every 8 (eight) hours for 7 days 42 tablet 0 02/22/2023 Active Start: 02-22-2023 acetaminophen (TYLENOL) tablet 975 mg Start: 02-14-2023 End: 02-22-2023 acetaminophen (TYLENOL) tabl et 1,000 mg acetaminophen 325 mg / oxyCODONE hydrochloride 5 mg oral tablet (1 source) Opioid Agonist End: 11-09-2024 take 1 tablet by mouth every four to six hours as needed oxycodone-acetaminophen 5 mg-325 mg tablet 11/09/2024 take 1 tablet by oral route every 4-6 hours as needed Airsupra 90 mcg-80 mcg/actuation HFA aerosol inhaler (1 source) End: 11-09-2024 Airsupra 90 mcg-80 mcg/actuation HFA aerosol inhaler 11/09/2024 inhale 2 puffs by inhalation route as needed :not to exceed 6 doses per day [id number] 200 actuat albuterol 0.09 mg/actuat metered dose inhaler (6 sources) beta2-Adrene rgic Agonist Start: 03-07-2021 take 2 puff(s) by inhalation every four hours for wheezing ProAir HFA 90 mcg/inh inhalation aerosol 2 puff(s), Inhalation, q4hr for wheezing, 8.5 gram, Refill(s) 11, [facility]/pharmacy #[id number], 165, cm, 03/07/21 13:17:00 EDT, Height/Length Dosing, 70, kg, 03/07/21 13:17:00 EDT, Weight Dosing Start Date: 03/07/21 Status: Ordered Start: 04-17-2019 albuterol 0.08 3% Inh Orquidea 3 mL 1 inh, NEB, QID Start Date: 04/17/19 Status: Ordered Start: 04-17-2019 albuterol 0.08 3% Inh Orquidea 3 mL 1 inh, NEB, QID Start Date: 04/17/19 Status: Ordered take 1-2 puff(s) by inhalation every four to six hours as needed albuterol sulfate HFA 90 mcg/actuation aerosol inhaler inhale 1 - 2 puffs (90 - 180 mcg) by inhalation route every 4-6 hours as needed Albuterol Active Albuterol (Eqv-ProAir HFA) 9 0 mcg/inh inhalation aerosol (14 sources) Start: 08-01-2024 Albuterol (Eqv -ProAir HFA) 90 mcg/inh inhalation aerosol 2 puff(s), Inhalation, q4hr Cough, 18 gm, Refill(s) 11, [id number], 170, cm, 08/01/24 9:18:00 EST, Height/Length Dosing, 70.8, kg, 08/01/24 9:18:00 EST, Weight Dosing Start Date: 08/01/24 Status: Ordered Quantity: 18.0 Unit: g Repeat number: 12 Start: 08-01-2024 take 2 puff(s) by in halation every four hours Albuterol (Eqv-ProAir HFA) 90 mcg/inh inhalation aerosol 2 puff(s), Inhalation, q4hr Cough, 18 gm, Refill(s) 11, [facility]/pharmacy #[id number], 170, cm, 08/01/24 9:18:00 EST, Height/Length Dosing, 70.8, kg, 08/01/24 9:18:00 EST, Weight Dosing Start Date: 08/01/24 Status: Ordered Start: 12-22-2022 take 2 puff(s) by in halation every four hours Albuterol (Eqv-ProAir HFA) 90 mcg/inh inhalation aerosol 2 puff(s), Inhalation, q4hr Cough, 18 gm, Refill(s) 11, [facility]/pharmacy #[id number], 170, cm, 12/22/22 11:14:00 EDT, Height/Length [...] day(s), # 20 tab(s), Refills(s) 0, Pharmacy: [facility]/pharmacy #[id number], 170, cm, 09/24/22 8:58:00 EST, Height/Length Dosing, 65, kg, 09/24/22 8:58:00 EST, Weight Dosing Start Date: 09/24/22 Stop Date: 10/04/22 Status: Ordered Start: 07-15-2022 End: 07-22-2022 Augmentin 875 mg-125 mg Tab 1 tab(s), Oral, BID for 7 day(s), 14 tab(s), Refill(s) 0, [facility]/pharmacy #[id number], 170, cm, 07/15/22 12:42:00 EST, Height/Length Dosing, 63.2, kg, 07/15/22 12:42:00 EST, Weight Dosing Start Date: 07/15/22 Stop Date: 07/22/22 Status: Ordered Amphetamine / Dextroamphetamine (2 sources) Central Nervous System Stimulant Start: 11-10-2021 Adderall 30 mg oral tablet 30 mg, 1 tab(s), Oral, BID, 60 tab(s), Refill(s) 0, 30 day supply with breakfast and lunch, [id number], 165, cm, 08/12/21 8:54:00 EST, Height/Length Dosing, 68.1, kg, 08/12/21 8:54:00 EST, Weight Dosing Start Date: 11/10/21 Status: Ordered Adderall Active amphetamine aspartate 7.5 mg / amphetamine sulfate 7.5 mg / dextroamphetamine saccharate 7.5 mg / dextroamphetamine sulfate 7.5 mg oral tablet (20 sources) Central Nervous System Stimulant Start: 05-10-2025 Adderall 30 mg oral tablet 30 mg, 1 tab(s), Oral, BID, 60 tab(s), Refill(s) 0, 30 day supply with breakfast and lunch dx. F90.[address] Danelle TREJO reviewed, [id number], 170, cm, 05/10/25 15:14:00 EDT, Height/Length Dosing, 72.4, kg, 05/10/25 15:14:00 EDT, Weight Dosing Start Date: 05/10/25 Status: Ordered Quantity: 60.0 Unit: tab(s) Repeat number: 1 Indications: Attention-deficit hyperactivity disorder, predominantly inattentive type; Start: 02-16-2025 Adderall 30 mg oral tablet 30 mg, 1 tab(s), Oral, BID, 60 tab(s), Refill(s) 0, 30 day supply with breakfast and lunch dx. F90.0, [id number], 170, cm, 02/08/25 13:32:00 EDT, Height/Length Dosing, 69.4, kg, 02/08/25 13:32:00 EDT, Weight Dosing Start Date: 02/16/25 Status: Ordered Quantity: 60.0 Unit: tab(s) Repeat number: 1 Indications: Attention-deficit hyperactivity disorder, predominantly inattentive type; Start: 01-02-2025 Adderall 30 mg oral tablet 30 mg, 1 tab(s), Oral, BID, 60 tab(s), Refill(s) 0, 30 day supply with breakfast and lunch, [facility]/pharmacy #[id number], 170, cm, 10/31/24 9:08:00 EDT, Height/Length Dosing, 72.8, kg, 10/31/24 9:08:00 EDT, Weight Dosing Start Date: 01/02/25 Status: Ordered Quantity: 60.0 Unit: tab(s) Repeat number: 1 Indications: Attention-deficit hyperactivity disorder, predominantly inattentive type; Start: 07-25-2024 Adderall 30 mg oral tablet 30 mg, 1 tab(s), Oral, BID, 60 tab(s), Refill(s) 0, 30 day supply with breakfast and lunch, [facility]/pharmacy #[id number], 170, cm, 05/02/24 10:34:00 EDT, Height/Length Dosing, 69.4, kg, 05/02/24 10:34:00 EDT, Weight Dosing Start Date: 07/25/24 Status: Ordered Start: 05-02-2024 Adderall 30 mg oral tablet 30 mg, 1 tab(s), Oral, BID, 60 tab(s), Refill(s) 0, 30 day supply with breakfast and lunch, [facility]/pharmacy #[id number], 170, cm, 05/02/24 10:34:00 EDT, Height/Length [...] breakfast and lunch, [id number], 170, cm, 12/22/22 11:14:00 EDT, Height/Length Dosing, 68.7, kg, 05/02/23 11:14:00 EDT, Weight Dosing Start Date: 02/26/23 Status: Ordered brompheniramine maleate 0.4 mg/ml / dextromethorphan hydrobromide 2 mg/ml / pseudoephedrine hydrochloride 6 mg/ml oral solution (1 source) alpha-Adrenergic Agonist, Uncompetitive Z-qnjghg-B-aspartate Receptor Antagonist, Sigma-1 Agonist Start: 12-20-2022 take 10 mL by mouth every six hours Abappifmn-Zcjkcnva-KN 30-2-10 MG/5ML 10 mL Orally every 6 hours for 5 days Nov, Active 120 actuat budesonide 0.18 mg/actuat dry powder inhaler (8 sources) Corticosteroid Start: 11-26-2023 take 2 puff(s) by inhalation twice daily Pulmicort Flexhaler 180 mcg/inh Powder = 2 puff(s), Inhalation, BID, # 1 EA, Refills(s) 11, Pharmacy: [facility]/pharmacy #[id number], 170, cm, 11/26/23 8:20:00 EDT, Height/Length Dosing, 76.3, kg, 11/26/23 8:20:00 EDT, Weight Dosing Start Date: 11/26/23 Status: Ordered Quantity: 1.0 Unit: EA Repeat number: 12 End: 11-09-2024 take 1 puff(s) by inhalation twice daily Pulmicort Flexhaler 180 mcg/actuation breath activated 11/09/2024 inhale 1 puff (180 mcg) by inhalation route 2 times per day busPIRone hydrochloride 10 mg oral tablet (8 sources) Start: 10-31-2024 take 1 tablet by mouth three times daily busPIRone 10 mg Tab 10 mg = 1 tab(s), Oral, TID, # 90 tab(s), Refills(s) 5, Pharmacy: [facility]/pharmacy #[id number], 170, cm, 10/31/24 9:08:00 EDT, Height/Length Dosing, 72.8, kg, 10/31/24 9:08:00 EDT, Weight Dosing Start Date: 10/31/24 Status: Ordered Quantity: 90.0 Unit: tab(s) Repeat number: 6 Start: 05-19-2024 take 1 tablet by janie th three times daily busPIRone 5 mg Tab See Instructions, TAKE 1 TABLET BY MOUTH THREE TIMES A DAY, # 270 tab(s), Refills(s) 1, Pharmacy: [facility] [id number], 170, cm, 05/02/24 10:34:00 EDT, Height/Length Dosing, 69.4, kg, 05/02/24 10:34:00 EDT, Weight Dosing Start Date: 05/19/24 Status: Ordered Start: 01-21-2024 take 1 tablet by janie three times daily busPIRone 5 mg Tab 5 mg = 1 tab(s), Oral, TID, # 90 tab(s), Refills(s) 5, Pharmacy: [facility]/pharmacy #[id number], 170, cm, 01/21/24 9:11:00 EDT, Height/Length Dosing, 74.4, kg, 01/21/24 9:11:00 EDT, Weight Dosing Start Date: 01/21/24 Status: Ordered Start: 05-09-2021 take 1 tablet by janie twice daily busPIRone 30 mg oral tablet 30 mg = 1 tab(s), Oral, BID, # 60 tab(s), Refills(s) 5, Pharmacy: [facility]/pharmacy #[id number], 165, cm, 05/09/21 9:54:00 EDT, Height/Length Dosing, 68, kg, 05/09/21 9:54:00 EDT, Weight Dosing Start Date: 05/09/21 Status: Ordered take 1 tablet by janie once daily buspirone 5 mg tablet take 1 tablet by oral route daily cetirizine hydrochloride 10 mg oral capsule (1 source) Histamine-1 Receptor Antagonist Start: 05-09-2021 take 1 capsule by mouth once daily as needed cetirizine 10 mg oral capsule 10 mg = 1 cap(s), Oral, Daily, PRN for allergy symptoms, # 90 cap(s), Refills(s) 3, Pharmacy: [facility]/pharmacy #[id number], 165, cm, 05/09/21 9:54:00 EDT, Height/Length Dosing, 68, kg, 05/09/21 9:54:00 EDT, Weight Dosing Start Date: 05/09/21 Status: Ordered cyclobenzaprine hydrochloride 5 mg oral tablet (1 source) Muscle Relaxant End: 11-09-2024 take 1 tablet by mouth every eight hours as needed cyclobenzaprine 5 mg tablet 11/09/2024 take 1 tablet by oral route every 8 hours as needed 0.3 ml enoxaparin sodium 100 mg/ml prefilled syringe (1 source) Low Molecular Weight Heparin Start: 02-15-2023 enoxaparin Sodium (LOVENOX) injection 30 mg escitalopram 20 mg oral tablet (9 sources) Serotonin Reuptake Inhibitor Start: 10-14-2023 take 1 tablet by mouth once daily Lexapro 20 mg Tab 20 mg = 1 tab(s), Oral, Daily, # 90 tab(s), Refills(s) 1, Pharmacy: [facility]/pharmacy #[id number], 170, cm, 01/21/24 9:11:00 EDT, Height/Length Dosing, 74.4, kg, 01/21/24 9:11:00 EDT, Weight Dosing Start Date: 03/28/24 Status: Ordered Quantity: 90.0 Unit: tab(s) Repeat number: 2 Indications: Generalized anxiety disorder; famotidine 40 mg oral tablet (18 sources) Histamine-2 Receptor Antagonist Start: 05-02-2024 take 1 tablet by mouth once daily at bedtime Pepcid 40 mg Tab 40 mg = 1 tab(s), Oral, Once a day (at bedtime), # 90 tab(s), Refills(s) 4, Pharmacy: [facility]/pharmacy #[id number], 170, cm, 05/02/24 10:34:00 EDT, Height/Length Dosing, 69.4, kg, 05/02/24 10:34:00 EDT, Weight Dosing Start Date: 05/02/24 Status: Ordered Quantity: 90.0 Unit: tab(s) Repeat number: 5 Indications: Gastro-esophageal reflux disease with esophagitis; Start: 03-07-2020 take 1 tablet by janie th once daily at bedtime Pepcid 40 mg Tab 40 mg = 1 tab(s), Oral, Once a day (at bedtime), # 90 tab(s), Refills(s) 3, Pharmacy: [facility]/pharmacy #[id number], 170, cm, 01/21/24 9:11:00 EDT, Height/Length Dosing, 74.4, kg, 01/21/24 9:11:00 EDT, Weight Dosing Start Date: 01/21/24 Status: Ordered Flonase 0.05 mg/inh nasal sp ray (2 sources) Start: 09-03-2021 Flonase 0.05 m g/inh nasal spray 2 spray(s), Nasal, Daily, 16 gram, Refill(s) 0, each nostril, [facility]/pharmacy #[id number], 165, cm, 08/12/21 8:54:00 EST, Height/Length [...] capsule (1 source) Anti-epileptic Agent Start: 03-09-2023 gabapentin (NEURONTIN) capsule 300 mg ibuprofen 400 mg oral tablet (2 sources) Nonsteroidal Anti-inflammatory Drug Start: 02-16-2023 End: 02-17-2023 ibuprofen (ADVIL;MOTRIN) tablet 400 mg lidocaine 0.05 mg/mg medicated patch (2 sources) Antiarrhythmic, Amide Local Anesthetic Start: 04-15-2023 lidocaine Top 5% film Patch 1 patch(es), Topical, Daily, 3 EA, Refill(s) 5, apply 12 hours on and 12 hours off daily, [facility]/pharmacy #[id number], 170, cm, 04/15/23 12:22:00 EDT, Height/Length Dosing, 75.3, kg, 04/15/23 12:22:00 EDT, Weight Dosing Start Date: 04/15/23 Status: Ordered loratadine 10 mg oral tablet (19 sources) Start: 01-21-2024 take 1 tablet by mouth once daily Claritin 10 mg Tab 10 mg = 1 tab(s), Oral, Daily, # 30 tab(s), Refills(s) 3, Pharmacy: [facility]/pharmacy #[id number], 170, cm, 01/21/24 9:11:00 EDT, Height/Length Dosing, 74.4, kg, 01/21/24 9:11:00 EDT, Weight Dosing Start Date: 01/21/24 Status: Ordered Quantity: 30.0 Unit: tab(s) Repeat number: 4 Indications: Other allergy status, other than to drugs and biological substances; Upper respiratory tract hypersensitivity reaction, site unspecified; Start: 05-25-2019 take 1 tablet by janie th once daily Claritin 10 mg Tab 10 mg = 1 tab(s), Oral, Daily, # 30 tab(s), Refills(s) 3, [id number], cm, 07/09/23 13:24:00 EST, Height/Length Dosing, 78.1, kg, 07/09/23 13:24:00 EST, Weight Dosing Start Date: 07/09/23 Status: Ordered Meclizine (6 sources) Antiemetic Start: [...] 12.5 mg melatonin 5 mg oral tablet (13 sources) Start: 03-12-2023 take 1 tablet by mouth once daily at bedtime [facility] MELATONIN 5 MG TABLET TAKE 1 TABLET BY MOUTH AT BEDTIME DAILY Start Date: 03/12/23 Status: Ordered Repeat number: 1 take 5 mg by mouth once daily me latonin 3 MG TABS tablet Take 5 mg by mouth daily 0 Active meloxicam 15 mg oral tablet (1 source) Nonsteroidal Anti-inflammatory Drug End: 11-09-2024 take 1 tablet by mouth once daily as needed meloxicam 15 mg tablet 11/09/2024 take 1 tablet by oral route daily as needed methocarbamol 750 mg oral tablet (16 sources) Muscle Relaxant Start: 03-23-2025 take 1 tablet by mouth three times daily as needed for muscle spasms Robaxin-750 oral tablet 1,500 mg = 2 tab(s), Oral, TID, PRN Spasm, # 60 tab(s), Refills(s) 3, Pharmacy: [facility]/pharmacy #[id number], 170, cm, 02/08/25 13:32:00 EDT, Height/Length Dosing, 69.4, kg, 02/08/25 13:32:00 EDT, Weight Dosing Start Date: 03/23/25 Status: Ordered Quantity: 60.0 Unit: tab(s) Repeat number: 4 Indications: Muscle spasm of back; Start: 02-16-2025 take 1 tablet by janie th three times daily as needed for muscle spasms Robaxin-750 oral tablet 1,500 mg = 2 tab(s), Oral, TID, PRN Spasm, # 60 tab(s), Refills(s) 3, Pharmacy: [facility]/pharmacy #[id number], 170, cm, 02/08/25 13:32:00 EDT, Height/Length Dosing, 69.4, kg, 02/08/25 13:32:00 EDT, Weight Dosing Start Date: 02/16/25 Status: Ordered Quantity: 60.0 Unit: tab(s) Repeat number: 4 Indications: Muscle spasm of back; Start: 11-26-2023 take 1 tablet by janie th three times daily as needed for muscle spasms Robaxin-750 oral tablet 1,500 mg = 2 tab(s), Oral, TID, PRN Spasm, # 60 tab(s), Refills(s) 3, Pharmacy: [facility]/pharmacy #[id number], 170, cm, 05/02/24 10:34:00 EDT, Height/Length Dosing, 69.4, kg, 05/02/24 10:34:00 EDT, Weight Dosing Start Date: 05/02/24 Status: Ordered Quantity: 60.0 Unit: tab(s) Repeat number: 4 Indications: Muscle spasm of back; Start: 04-02-2023 take 1 tablet by janie th four times daily methocarbamol 500 mg Tab 500 mg = 1 tab(s), Oral, QID, # 100 tab(s), Refills(s) 0, Pharmacy: [facility]/pharmacy #[id number], 170, cm, 03/12/23 14:43:00 EDT, Height/Length [...] oral tablet (7 sources) Opioid Agonist Start: oxyCODONE (ROXICODONE) immediate release tablet 5 mg [...] q4hr for wheezing, 8.5 gram, Refill(s) 11, [facility]/pharmacy #[id number], 165, cm, 03/07/21 13:17:00 EDT, Height/Length Dosing, 70, kg, 03/07/21 13:17:00 EDT, Weight Dosing Start Date: 03/07/21 Status: Ordered sennosides, skilled nursing 8.6 mg oral tablet (1 source) Start: 03-09-2023 senna (SENOKOT ) tablet 8.6 mg sertraline 100 mg oral tablet (12 sources) Serotonin Reuptake Inhibitor Start: 07-09-2023 take 1 tablet by mouth once daily Zoloft 100 mg Tab 100 mg = 1 tab(s), Oral, Daily, # 90 tab(s), Refills(s) 3, Pharmacy: [facility]/pharmacy #[id number], 170, cm, 07/09/23 13:24:00 EST, Height/Length Dosing, 78.1, kg, 07/09/23 13:24:00 EST, Weight Dosing Start Date: 07/09/23 Status: Ordered Start: 02-14-2023 sertraline (ZO LOFT) tablet 25 mg Start: 06-23-2022 take 1 tablet by janie once daily Zoloft 100 mg Tab 100 mg = 1 tab(s), Oral, Daily, # 90 tab(s), Refills(s) 3, Pharmacy: [facility]/pharmacy #[id number], 170, cm, 07/15/22 12:42:00 EST, Height/Length Dosing, 63.2, kg, 07/15/22 12:42:00 EST, Weight Dosing Start Date: 09/08/22 Status: Ordered Zoloft Active topiramate 100 mg oral tablet (11 sources) Start: 11-16-2024 take 1 tablet by mouth once daily topiramate 100 mg Tab See Instructions, TAKE 1 TABLET BY MOUTH EVERY DAY, # 90 tab(s), Refills(s) 1, Pharmacy: [id number], 170, cm, 10/31/24 9:08:00 EDT, Height/Length Dosing, 72.8, kg, 10/31/24 9:08:00 EDT, Weight Dosing Start Date: 11/16/24 Status: Ordered Quantity: 90.0 Unit: tab(s) Repeat number: 1 Start: 11-26-2023 take 1 tablet by janie th once daily topiramate 100 mg Tab See Instructions, TAKE 1 TABLET BY MOUTH EVERY DAY, # 90 tab(s), Refills(s) 1, Pharmacy: [email or web address] [id number], 170, cm, 05/02/24 10:34:00 EDT, Height/Length Dosing, 69.4, kg, 05/02/24 10:34:00 EDT, Weight Dosing Start Date: 05/18/24 Status: Ordered Start: 02-22-2023 End: 03-09-2023 take [...] Status: Ordered take 1 tablet by janie th every six hours as needed for pain [...] puff(s), Inhalation, Daily, 28 blister(s), Refill(s) 4, [facility]/pharmacy #[id number], 170, cm, 12/22/22 11:14:00 EDT, Height/Length Dosing, 68.7, kg, 12/22/22 11:14:00 EDT, Weight Dosing Start Date: 12/22/22 Status: Ordered Start: 06-23-2022 take 1 puff(s) by in halation once daily Trelegy Ellipta 200 mcg-62.5 mcg-25 mcg/inh inhalation powder 1 puff(s), Inhalation, Daily, 28 blister(s), Refill(s) 0, [facility], 165, cm, 06/23/22 9:09:00 [...] propionate 0.05 mg/actuat metered dose nasal spray (20 sources) Corticosteroid Start: 03-28-2024 take 15.8 mL nasal route twice daily Flonase 0.05 mg/inh Lawrence 50 mcg, 1 spray(s), Nasal, BID, 15.8 mL, Refill(s) 5, each nostril, [facility]/pharmacy #[id number], 170, cm, 01/21/24 9:11:00 EDT, Height/Length Dosing, 74.4, kg, 01/21/24 9:11:00 EDT, Weight Dosing Start Date: 03/28/24 Status: Ordered Quantity: 15.8 Unit: mL Repeat number: 6 Start: 09-24-2022 take 15.8 mL nasal r oute twice daily Flonase 0.05 mg/inh Lawrence 50 mcg, 1 spray(s), Nasal, BID, 15.8 mL, Refill(s) 5, each nostril, [facility]/pharmacy #[id number], 170, cm, 09/24/22 8:58:00 EST, Height/Length Dosing, 65, kg, 09/24/22 8:58:00 EST, Weight Dosing Start Date: 09/24/22 Status: Ordered Start: 09-03-2021 Flonase 0.05 m g/inh nasal spray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 [Catalytic activity/Vol] 68 [iU]/d Normal 21 - 98 Int._Unit/ L [facility] ALT No additional P-5'-P [Catalytic activity/Vol] 16 [iU]/d Normal 6 - 46 Int._Unit/ L [facility] AST [Catalytic activity/Vol] 14 [iU]/d Normal 5 - 43 Int._Unit/ L [facility] Bilirubin [Mass/Vol] 0.2 mg/dL Normal 0.0 - 1.1 mg/dL [facility] Bilirubin.direct [Mass/Vol] 0.0 mg/dL Normal 0.0 - 0.4 mg/dL [facility] Bilirubin.indirect [Mass or moles/Vol] 0.2 mg/dL Normal 0.1 - 0.9 mg/dL [facility] GFR/1.73 sq M.predicted MDRD (S/P/Bld) [Vol rate/Area] 122 mL/min/1.73 m2 Normal >=59mL/min /1.73 m2 [facility] Urea nitrogen/Creatinine [Mass ratio] 20 mg/mg Normal 10 - 20 [facility] Free E3Aykhafm By: SYSTEM SY STEM on 02-27-2025 Free T4 [Mass/Vol] 0.57 ng/dL Low 0.58-1.64 [facility] Comment on above: Performed By: #### 2 [id number] #### [facility] [address] [place] [address] HEMATOLOGYOrdered By: SYSTEM SYSTEM on 02-27-2025 Basophils/Leukocyte s Auto (Bld) [Pure # fraction] 0.0 E9/L Normal 0.0 - 0.2 E9/L [facility] Eosinophils (Bld) [#/Vol] 0.1 E9/L Normal 0.0 - 0.5 E9/L [facility] Lymphocytes (Bld) [#/Vol] 1.4 E9/L Normal 1.0 - 4.0 E9/L [facility] Monocytes (Bld) [#/Vol] 0.3 E9/L Normal 0.2 - 1.0 E9/L [facility] Neutrophils (Bld) [#/Vol] 2.6 E9/L Normal 2.0 - 7.5 E9/L [facility] Neutrophils/100 WBC (Bld) 59.1 % Normal 36.0 - 75.0 % [facility] Platelets (Bld) [#/Vol] 307.0 E9/L Normal 150.0 - 500.0 E9/L [facility] RBC (Bld) [#/Vol] 4.7 E12/L Normal 4.3 - 5.9 E12/L [facility] WBC corrected for nucl RBC Auto (Bld) [#/Vol] 4.4 E9/L Normal 4.0 - 11.0 E9/L [facility] Hep Func PanelOrdered By: IZEA SYSTEM on 02-27-2025 Albumin [Mass/Vol] 4.5 g/dL Normal 3.3-5.0 [facility] Comment on above: Performed By: #### 2 [id number] #### [facility] [address] [place] [address] Albumin/Globulin [Mass ratio] 1.3 {ratio} Normal 1.1-2.2 [facility] Comment on above: Performed By: #### 2 901031 #### [facility] [address] [place] [address] Globulin (S) [Mass/Vol] 3.5 g/dL Normal 1.4-4.0 [facility] Comment on above: Performed By: #### 2 821950 #### [facility] [address] [place] [address] Protein [Mass/Vol] 8.0 g/dL High 6.0-7.8 [facility] Comment on above: Performed By: #### 2 802760 #### [facility] [address] [place] [address] Hep Func Panelon 02-27-2025 Alk Phos 68 Int._Unit/L Normal 21-98 [facility] Comment on above: Performed By: #### 2 924926 #### [facility] [address] [place] [address] ALT 16 Int._Unit/L Normal 6-46 [facility] Comment on above: Performed By: #### 2 893244 #### [facility] [address] [place] [address] AST 14 Int._Unit/L Normal 5-43 [facility] Comment on above: Performed By: #### 2 233054 #### [facility] [address] [facility] [place] [address] Bili Direct 0.0 mg/dL Normal 0.0-0.4 [facility] Comment on above: Performed By: #### 2 226488 #### [facility] [address] [place] [address] Bili Indirect 0.2 mg/dL Normal 0.1-0.9 [facility] Comment on above: Performed By: #### 2 208482 #### [facility] [address] [place] [address] Bili Total 0.2 mg/dL Normal 0.0-1.1 [facility] Comment on above: Performed By: #### 2 147686 #### [facility] [address] [place] [address] Lipid PanelOrdered By: Sabirmedical SYSTEM on 02-27-2025 Cholesterol [Mass/Vol] 226 mg/dL High 120-200 [facility] Comment on above: Performed By: #### 2 995803 #### [facility] [address] [place] [address] Cholesterol in HDL [Mass/Vol] 74 mg/dL Invalid Interpretation Code [facility] Comment on above: Result Comment: '>= 60 LOW RISK' '<= 40 HIGH RISK' Result Comment: '>= 60 LOW RISK' '<= 40 HIGH RISK' Performed By: #### 2 196441 #### [facility] [address] [place] [address] Cholesterol in LDL [Mass/Vol] 133 mg/dL High <=129 [facility] Comment on above: Performed By: #### 2 039561 #### [facility] [address] [place] [address] Cholesterol in VLDL [Mass/Vol] 22 mg/dL Normal 7-40 [facility] Comment on above: Performed By: #### 2 327420 #### [facility] [address] [place] [address] Triglyceride [Mass/Vol] 109 mg/dL Normal <=149 [facility] Comment on above: Performed By: #### 2 662419 #### [facility] [address] [place] [address] TSHOrdered By: SYSTEM SYSTEM on 02-27-2025 TSH Qn 1.56 m[IU]/L Normal 0.34-5.60 [facility] Comment on above: Performed By: #### 2 245214 #### [facility] [address] [place] [address] eGFRon 02-27-2025 eGFR 122 mL/min/1.73 m2 Normal >=59 [facility] Comment on above: Performed By: #### 1 [id number] #### [facility] [address] [place] [id number] Ambulatory Visit Summaryon 0 02-08-2025 Ambulatory Visit Summary Ambulatory Visit Summary FELISA MADDEN :1985 Visit Date:02/08/2025 Ambulatory Visit Instructions Your [...] mg Tab) fluticasone nasal (Flonase 0.05 mg/inh Lawrence) loratadine (Claritin 10 mg Tab) methocarbamol (Robaxin-750 [...] Appointments 2024 3:00 PM EDT With: Valdemar MCCLENDON DO, FAAFP Where: [facility] [address], [facility] [place] [address]- You Need to Schedule the Following Appointments Follow Up with Valdemar MCCLENDON DO, FAAFP, FAM, PED When: In 3 months Where: [address], [facility] [place] [address]- You Need to Complete the Following Basic [...] Unchanged fluticasone nasal (Flonase 0.05 mg/ inh Lawrence) 1 Sprays Nasal Inhalation 2 times a day each nostril Contact prescribing physician if questions or concerns Unchanged loratadine (Claritin 10 mg Tab) 1 Tablets By Mouth Every day Al (more content not included)... Normal [facility] Family Medicine Office/Clini c Noteon 02-08-2025 Family Medicine Office/Clinic Note Family Medicine Office/Clinic Note Chief Complaint F/U: ADHD, Anxiety. Discuss [...] it used to. Ordered: Drug Screen POC 77194 HCV Antibody RFX to Quant PCR 2. [...] to provide these. Ordered: Drug Screen POC 25172 6. Encounter for drug screening (Z02.83: Encounter for blood-alcohol and blood-drug test) pos for amphetamines Ordered: Drug Screen POC 97963 7. BMI 24.0-24.9, adult (Z68.24: Body mass index [BMI] 24.0-24.9, adult) The standard range for ages 18 and older is >=18.5 and < 25 kg/m2. Your BMI today was above this range, this falls in the overweight to obese category and there are medical benefits to weight loss. We can o (more content not included)... Normal [facility] Comment on above: Result Comment: Elec tronically Signed By: Valdemar MCCLENDON DO, FAAFP\.br\Date and Time Signed: 02/08/25 14:14 EDT No Panel Informationon 11-09 Tobacco smoking status Former Tobacco User Invalid Interpretation Code [facility] Ambulatory Visit Summaryon 0 10-31-2024 Ambulatory Visit Summary Ambulatory Visit Summary FELISA MADDEN :1985 Visit [...] mg Tab) fluticasone nasal (Flonase 0.05 mg/inh Lawrence) loratadine (Claritin 10 mg Tab) methocarbamol (Robaxin-750 [...] Appointments Wednesday 8:00 AM EDT With: Valdemar MCCLENDON DO, FAAFP Where: [facility] [address] [facility] [place] [address]- You Need to Schedule the Following Appointments Follow Up with Valdemar MCCLENDON DO, FAAFP, FAM, PED When: In 3 months Where: [address], [facility] [place] [address]- Medications What How Much When Why Instructions Changed busPIRone (busPIRone 10 mg Tab) 1 Tablets By Mouth 3 times a day Pickup at [facility]/pharmacy #6177 Unchanged amphetamine-dextroamphetamin e (Adderall 30 mg oral tablet) 1 Tablets By Mouth 2 times a day ADHD (attention deficit hyperactivity disorder), inattentive type 30 day supply with breakfast and lunch Pickup at [facility]/pharmacy #6177 Unchanged acetaminophen (Tylenol Extra Strength 500 [...] Unchanged fluticasone nasal (Flonase 0.05 mg/ inh Lawrence) 1 Sprays Nasal Inhalation 2 times a [...] if questions or concerns Unchanged Misc Prescription ([facility] MELATONIN 5 MG TABLET) TAKE 1 TABLET BY MOUTH AT BEDTIME DAILY Contact prescribing physician if questions or concerns Unchanged topiramate (topiramate 100 mg Tab) See instructions TAKE 1 TABLET BY MOUTH EVERY DAY Contact prescribing physician if questions or concerns Pharmacy Information [facility]/pharmacy #[id number]: [address], [place] [phone] Allergies CloNIDine HCl (Unknown) Pollen (Unknown) Adhesive Bandage (Blister) BuSpar (Other) Roxbury (Unknown) Milk Products (Unknown) Wheat (Unknown) Problems [...] Osteoarthritis of fingers of both hands Rhesus isoimmu (more content not included)... Normal [facility] Family Medicine Office/Clini c Noteon 10-31-2024 Family Medicine Office/Clinic Note Family Medicine Office/Clinic Note Chief Complaint F/U: ADHD, anxiety, gerd. [...] 30 day supply with breakfast and lunch, [facility]/pharmacy #6177, 170, cm, 10/31/24 9:08:00 EDT, Height/Length [...] you to visit www.smokefree.gov access to helpful resour (more content not included)... Normal [facility] Comment on above: Result Comment: Elec tronically Signed By: Valdemar MCCLENDON DO, FAAFP\anup\Date and Time Signed: 10/31/24 09:39 EDT Ambulatory Visit Summaryon 10-02-2023 Ambulatory Visit Summary Ambulatory Visit Summary FELISA MADDEN :1985 Visit [...] mg Tab) fluticasone nasal (Flonase 0.05 mg/inh Lawrence) loratadine (Claritin 10 mg Tab) methocarbamol (Robaxin-750 [...] EDT With: Valdemar MCCLENDON DO, FAAFP Where: [facility] [address] [facility], [facility] [place] [address]- You Need to Schedule the Following Appointments Follow Up with Valdemar MCCLENDON DO, FAAFP, DIANNE, PED When: In 3 months Where: [address], [facility] [place] [address]- Medications What How Much When Why Instructions Unchanged albuterol (Albuterol (Eqv-ProAir HFA) 90 mcg/ inh inhalation aerosol) 2 Puffs Inhalation Every 4 hours as needed for Cough Pickup at [facility]/pharmacy #6119 Unchanged acetaminophen (Tylenol Extra Strength 500 mg [...] Unchanged fluticasone nasal (Flonase 0.05 mg/ inh Lawrence) 1 Sprays Nasal Inhalation 2 times a [...] if questions or concerns Unchanged Misc Prescription ([facility] MELATONIN 5 MG TABLET) TAKE 1 TABLET BY MOUTH AT BEDTIME DAILY Contact prescribing physician if questions or concerns Unchanged topiramate (topiramate 100 mg Tab) See instructions TAKE 1 TABLET BY MOUTH EVERY DAY Contact prescribing physician if questions or concerns Pharmacy Information [facility]/pharmacy #[id number]: [address], [place] [phone] Allergies CloNIDine HCl (Unknown) Pollen (Unknown) Adhesive Bandage (Blister) BuSpar (Other) Roxbury (Unknown) Milk Products (Unknown) Wheat (Unknown) Problems [...] herniated disc (more content not included)... Normal [facility] Medicine Office/Clini c Noteon 08-01-2024 Family Medicine [...] Inhalation, q4hr Cough, 18 gm, Refill(s) 11, [facility]/pharmacy #6177, 170, cm, 08/01/24 9:18:00 EST, Height/Length [...] OARRS Reviewed, (more content not included)... Normal [facility] Comment on above: Result Comment: Elec tronically Signed By: DANELLE MOREJON FAAFP, Valdemar Garcia\.br\Date and Time Signed: 08/01/24 10:08 EST CBC AND AUTO DIFFon 07-17-20 ABSOLUTE BASOPHIL 0.0 X10E9/L Normal 0.0-0.2 [facility] Comment on above: Performed By: #### C BCA, PINR, CMP, 2157-01 #### [facility] ([id number]) [address] [place] [address] 90220 ABSOLUTE NEUTROPHIL 5.4 X10E9/L Normal 1.5-6.6 [facility] Comment on above: Performed By: #### C BCA, PINR, CMP, 2157-01 #### [facility] ([id number]) [address] [place] [address] 44723 Basophils/100 WBC (Bld) 0.3 % Normal [facility] Comment on above: Performed By: #### C BCA, PINR, CMP, 2157-01 #### [facility] ([id number]) [address] [place] [address] 82046 Eosinophils (Bld) [#/Vol] 0.2 10*3/uL Normal 0.0-0.4 [facility] Comment on above: Performed By: #### C BCA, PINR, CMP, 2157-01 #### [facility] ([id number]) [address] [place] [address] 50312 Eosinophils/100 WBC (Bld) 2.9 % Normal [facility] Comment on above: Performed By: #### Miracle BCA, PINR, CMP, 2157-01 #### [facility] ([id number]) [address] [place] [address] 34814 Erythrocyte distribution width (RBC) [Ratio] 13.9 % Normal 11.5-15.0 [facility] Comment on above: Performed By: #### C KESHA, PINR, CMP, 2157-01 #### [facility] ([id number]) [address] [place] [address] 97239 Hematocrit (Bld) [Volume fraction] 36.9 % Normal 35-47 [facility] Comment on above: Performed By: #### Miracle BCA, PINR, CMP, 2157-01 #### [facility] ([id number]) [address] [place] [address] 61863 Hemoglobin (Bld) [Mass/Vol] 12.2 g/dL Normal 11.7-15.5 [facility] Comment on above: Performed By: #### Miracle BCA, PINR, CMP, 2157-01 #### [facility] ([id number]) [address] [place] [address] 77519 Lymphocytes (Bld) [#/Vol] 1.4 10*3/uL Normal 1.0-3.5 [facility] Comment on above: Performed By: #### C KESHA, PINR, CMP, 2157-01 #### [facility] ([id number]) [address] [place] [address] 33193 Lymphocytes/100 WBC (Bld) 19.0 % Normal [facility] Comment on above: Performed By: #### Miracle BCA, PINR, CMP, 2157-01 #### [facility] ([id number]) [address] [place] [address] 27067 MCH (RBC) [Entitic mass] 28.6 pg Normal 27-34 [facility] Comment on above: Performed By: #### Miracle BCA, PINR, CMP, 2157-01 #### [facility] ([id number]) [address] [place] [address] 66155 MCHC (RBC) [Mass/Vol] 33.0 g/dL Normal 32-36 [facility] Comment on above: Performed By: #### Miracle REBOLLEDO, PINR, CMP, 2157-01 #### [facility] ([id number]) [address] [place] [address] 47322 MCV (RBC) [Entitic vol] 87 fL Normal 80-100 [facility] Comment on above: Performed By: #### Miracle BCA, PINR, CMP, 2157-01 #### [facility] ([id number]) [address] [place] [address] 76997 Monocytes (Bld) [#/Vol] 0.4 10*3/uL Normal 0-0.9 [facility] Comment on above: Performed By: #### C BCA, PINR, CMP, 2157-01 #### [facility] ([id number]) [address] [place] [address] 25860 Monocytes/100 WBC (Bld) 5.0 % Normal [facility] Comment on above: Performed By: #### C BCA, PINR, CMP, 2157-01 #### [facility] ([id number]) [address] [place] [address] 66284 Neutrophils/100 WBC (Bld) 72.8 % Normal [facility] Comment on above: Performed By: #### Miracle BCA, PINR, CMP, 2157-01 #### [facility] ([id number]) [address] [place] [address] 80657 Platelet mean volume (Bld) [Entitic vol] 7.6 fL Normal 7-12 [facility] Comment on above: Performed By: #### Miracle BCA, PINR, CMP, 2157-01 #### [facility] ([id number]) [address] [place] [address] 27937 Platelets (Bld) [#/Vol] 345 10*3/uL Normal 150-450 [facility] Comment on above: Performed By: #### Miracle BCA, PINR, CMP, 2157-01 #### [facility] ([id number]) [address] [place] [address] 33131 RBC COUNT 4.26 X10E12/L Normal 3.80-5.20 [facility] Comment on above: Performed By: #### Miracle BCA, PINR, CMP, 2157-01 #### [facility] ([id number]) [address] [place] [address] 40242 WBC (Bld) [#/Vol] 7.4 10*3/uL Normal 4.0-11.0 [facility] Comment on above: Performed By: #### Miracle BCA, PINR, CMP, 2157-01 #### [facility] ([id number]) [address] [place] [address] 37675 CK [Catalytic activity/Vol]o n 07-17-2024 CPK 108 U/L Normal 24-170 [facility] Comment on above: Performed By: #### C BCA, PINR, CMP, 2157-01 #### [facility] ([id number]) [address] [place] [address] 15339 COMPREHENSIVE METABOLIC PANE Mariano 07-17-2024 Albumin [Mass/Vol] 3.8 g/dL Normal 3.2-5.3 [facility] Comment on above: Performed By: #### C BCA, PINR, CMP, 2157-01 #### [facility] ([id number]) [address] [place] [address] [place] [address] ALP [Catalytic activity/Vol] 108 U/L Normal 39-130 [facility] Comment on above: Performed By: #### C BCA, PINR, CMP, 2157-01 #### [facility] ([id number]) [address] [place] [address] 96624 ALT [Catalytic activity/Vol] 40 U/L High 0-31 [facility] Comment on above: Performed By: #### C BCA, PINR, CMP, 2157-01 #### [facility] ([id number]) [address] [place] [address] 48328 Anion gap [Moles/Vol] 4 mmol/L Low 5-15 [facility] Comment on above: Performed By: #### C BCA, PINR, CMP, 2157-01 #### [facility] ([id number]) [address] [place] [address] [place] [address] AST [Catalytic activity/Vol] 29 U/L Normal 0-41 [facility] Comment on above: Performed By: #### C BCA, PINR, CMP, 2157-01 #### [facility] ([id number]) [address] [place] [address] 88171 Bilirubin [Mass/Vol] 0.3 mg/dL Normal 0.3-1.2 [facility] Comment on above: Performed By: #### C BCA, PINR, CMP, 2157-01 #### [facility] ([id number]) [address] [place] [address] 81599 Calcium [Mass/Vol] 8.9 mg/dL Normal 8.5-10.5 [facility] Comment on above: Performed By: #### C BCA, PINR, CMP, 2157-01 #### [facility] ([id number]) [address] [place] [address] 89551 Chloride [Moles/Vol] 106 mmol/L Normal 98-109 [facility] Comment on above: Performed By: #### C BCA, PINR, CMP, 2157-01 #### [facility] ([id number]) [address] [place] [address] 60708 CO2 [Moles/Vol] 22 mmol/L Normal 22-32 [facility] Comment on above: Performed By: #### C BCA, PINR, CMP, 2157-01 #### [facility] ([id number]) [address] [place] [address] 11874 Creatinine [Mass/Vol] 0.78 mg/dL Normal 0.40-1.00 [facility] Comment on above: Result Comment: METH OD TRACEABLE TO IDMS STANDARD Performed By: #### C BCA, PINR, CMP, 2157-01 #### [facility] ([id number]) [address] [place] [address] 79525 eGFR (CKD-EPI) NON-RACE DEPENDENT >90 Normal >59 [facility] Comment on above: Result Comment: Reported eGFR is based on the CKD-EPI 2020 equation that does not use a race coefficient. Performed By: #### C BCA, PINR, CMP, 2157-01 #### [facility] ([id number]) [address] [place] [address] 74034 Glucose [Mass/Vol] 99 mg/dL Normal 65-99 [facility] Comment on above: Performed By: #### C KESHA, PINR, CMP, 2157-01 #### [facility] ([id number]) [address] [place] [address] 75176 Potassium [Moles/Vol] 3.5 mmol/L Normal 3.5-5.0 [facility] Comment on above: Performed By: #### C KESHA, PINR, CMP, 2157-01 #### [facility] ([id number]) [address] [place] [address] 11475 Protein [Mass/Vol] 7.9 g/dL Normal 6.0-8.0 [facility] Comment on above: Performed By: #### C KESHA, PINR, CMP, 2157-01 #### [facility] ([id number]) [address] [place] [address] 78290 Sodium [Moles/Vol] 132 mmol/L Low 134-146 [facility] Comment on above: Performed By: #### C KESHA, PINR, CMP, 2157-01 #### [facility] ([id number]) [address] [place] [address] 86128 Urea nitrogen [Mass/Vol] 10 mg/dL Normal 5-23 [facility] Comment on above: Performed By: #### C BCA, PINR, CMP, 2157-01 #### [facility] ([id number]) [address] [place] [address] 84694 PROTIME AND INRon 07-17-2024 INR Coag (PPP) [Relative time] 1.0 {INR} Normal 0.8-1.1 [facility] Comment on above: Performed By: #### C BCA, PINR, CMP, 2157-01 #### [facility] ([id number]) [address] [place] [address] 27832 PT Coag (PPP) [Time] 11.7 s Normal 9.8-13.2 [facility] Comment on above: Result Comment: NEW REFERENCE RANGE Performed By: #### C BCA, PINR, CMP, 2157-6 #### [facility] ([id number]) [address] [place] [address], [place] [address] XR FOREARM LT 2 VWSon 2023 XR FOREARM LT 2 VWS XR FOREARM LT 2 VWS 2 VIEWS LEFT FOREARM HISTORY: Injury, pain COMPARISON: None IMPRESSION: * Acute nondisplaced mildly comminuted fractures of the mid shafts of both the left radius and ulna. Finalized by Mina Gilbert MD on 07/17/2024 3:49 AM Normal [facility] XR HAND LT 2 VWSon XR HAND LT 2 VWS XR HAND LT 2 VWS 2 views left hand HISTORY: Injury, pain COMPARISON: None IMPRESSION: * No acute fracture or malalignment in the left hand. Finalized by Mina Gilbert MD on 07/17/2024 3:49 AM Normal [facility] XR CERVICAL SPINE (4-5 VIEWS )on [...] Raymon Garcia MD 05/30/23 Final result Normal [facility] HEMATOLOGYOrdered By: Ambrosio Ugalde on 04-15-2023 Sed Rate Automated 13 mm/h Normal 0 - 34 mm/hr [facility] [place] HEAD WO CONTRASTon 2022 CT [...] MD 03/19/23 Edited Result - FINAL Normal [facility] Basic Metabolic Panelon 02-20 Anion gap [Moles/Vol] 10 mmol/L 9 - 17 mmol/L [facility] [employer] Calcium [Mass/Vol] 8.6 mg/dL 8.6 - 10. 4 mg/dL [facility] [employer] Chloride [Moles/Vol] 108 mmol/L High 98 - 107 mmol/L [facility] [employer] CO2 [Moles/Vol] 22 mmol/L 20 - 31 mmol/L [facility] Creatinine [Mass/Vol] 0.5 mg/dL 0.5 - 0.9 mg/dL [facility] [employer] [facility] GFR/1.73 sq M.predicted MDRD (S/P/Bld) [Vol rate/Area] - [facility] Comment on above: These results are not [...] 104 mg/dL High 70 - 99 mg/dL [facility]ENTER[facility]ang[facility] [employer] [facility] Interpretation and review of laboratory results Abnormal [facility] Potassium [Moles/Vol] 3.8 mmol/L 3.7 - 5.3 mmol/L [facility] Sodium [Moles/Vol] 140 mmol/L 135 - 144 mmol/L [facility] Urea nitrogen [Mass/Vol] 12 mg/dL 6 - 20 mg/dL [facility] Basic Metabolic Profon 03-10 Anion gap [Moles/Vol] 10 mmol/L Normal - [facility] Comment on above: Performed By: #### B MP, MG, CDP #### [facility] [address] [place] [address] Store Sales Manager: Agustin Logan MD Calcium [Mass/Vol] 8.6 mg/dL Normal 8.6-10.4 [facility] Comment on above: Performed By: #### B MP, MG, CDP #### [facility] [address] [place] [address] 71198 Store Sales Manager: Agustin Logan MD Chloride [Moles/Vol] 108 mmol/L High 98-107 [facility] Comment on above: Performed By: #### B MP, MG, CDP #### [facility] [address] [place] [address] 86204 Store Sales Manager: Agustin Logan MD CO2 [Moles/Vol] 22 mmol/L Normal 20-31 [facility] Comment on above: Performed By: #### B MP, MG, CDP #### [facility] [address] [place] [address] 64154 Store Sales Manager: Agustin Logan MD Creatinine [Mass/Vol] 0.5 mg/dL Normal 0.5-0.9 [facility] Comment on above: Performed By: #### B MP, MG, CDP #### [address] [address] Store Sales Manager: Agustin Logan MD GFR/1.73 sq M.predicted among non-blacks MDRD (S/P/Bld) [Vol rate/Area] mL/min/{1.73_m2} Normal >60 [facility] Comment on above: Result Comment: These results [...] B MP, MG, CDP #### [facility] [address] [place] [address] 24836 Store Sales Manager: Agustin Logan MD Glucose [Mass/Vol] 104 mg/dL High 70-99 [facility] Comment on above: Performed By: #### B MP, MG, CDP #### [facility] [address] [place] [address] 30888 Store Sales Manager: Agustin Logan MD Potassium [Moles/Vol] 3.8 mmol/L Normal 3.7-5.3 [facility] Comment on above: Performed By: #### B MP, MG, CDP #### [facility] [address] [place] [address] 84344 Store Sales Manager: Agustin Logan MD Sodium [Moles/Vol] 140 mmol/L Normal 135-144 [facility] Comment on above: Performed By: #### B MP, MG, CDP #### [facility] [address] [place] [address] 60102 Store Sales Manager: Agustin Logan MD Urea nitrogen [Mass/Vol] 12 mg/dL Normal 6-20 [facility] Comment on above: Performed By: #### B MP, MG, CDP #### [facility] [address] [place] [address] 20693 Store Sales Manager: Agustin Logan MD CBC with Auto Differentialon 03-10-2023 Basophils (Bld) [#/Vol] [facility] Basophils/100 WBC (Bld) 0 % 0 - 2 % [facility] [employer] Eosinophils (Bld) [#/Vol] 0.16 10*3/uL [facility] [employer] Eosinophils/100 WBC (Bld) 3 % 1 - 4 % [facility]ITAL[facility] [employer] [facility] Erythrocyte distribution width (RBC) [Ratio] 13.2 % 11.8 - 14.4 % [facility] SECInsero Health [facility]ITAL[facility] Hematocrit (Bld) [Volume fraction] 35.7 % Low 36.3 - 47.1 % [facility] Hemoglobin (Bld) [Mass/Vol] 11.4 g/dL Low 11.9 - 15.1 g/dL [facility] Immature granulocytes (Bld) [#/Vol] [facility] Immature granulocytes/100 WBC (Bld) 0 % 0 [facility] Interpretation and review of laboratory results Abnormal [facility] Lymphocytes/100 WBC (Bld) 28 % 24 - 43 % [facility] Lymphocytes/100 WBC (Bld) 1.73 % [facility] MCH (RBC) [Entitic mass] 28.9 pg 25.2 - 33.5 pg [facility] MCHC (RBC) [Mass/Vol] 31.9 g/dL 28.4 - 34.8 g/dL [facility] MCV (RBC) [Entitic vol] 90.6 fL 82.6 - 102.9 fL [facility] Monocytes/100 WBC (Bld) 7 % 3 - 12 % [facility] Monocytes/100 WBC (Bld) 0.41 % [facility] Neutrophils/100 WBC (Bld) 62 % 36 - 65 % [facility] Nucleated RBC/100 WBC (Bld) [Ratio] 0.0 % 0.0 per 100 WBC [facility] Platelet mean volume (Bld) [Entitic vol] 9.3 fL 8.1 - 13.5 fL [facility] Platelets (Bld) [#/Vol] 360 10*3/uL [facility] RBC (Bld) [#/Vol] 3.94 10*6/uL Low 3.95 - 5.11 m/uL [facility] Segmented neutrophils/100 WBC (Bld) 3.76 % [facility] WBC other (Bld) [#/Vol] 6.1 [facility] CBC with Diffon 03-10-2023 Abs. Basophil <0.03 Normal 0.00-0.20 [facility] Comment on above: Performed By: #### B MP, MG, CDP #### [facility] [address] [place] [address] 78042 Store Sales Manager: Agustin Logan MD Abs.Imm.Granulocyte <0.03 Normal 0.00-0.30 [facility] Comment on above: Performed By: #### B MP, MG, CDP #### [facility] [address] [place] [address] 29059 Store Sales Manager: Agustin Logan MD Abs.Neutrophil (Seg) 3.76 k/uL Normal 1.50-8.10 [facility] Comment on above: Performed By: #### B MP, MG, CDP #### [facility] [address] [place] [address] 12079 Store Sales Manager: Agustin Logan MD Basophils/100 WBC (Bld) 0 % Normal 0-2 [facility] Comment on above: Performed By: #### B MP, MG, CDP #### [facility] [address] [place] [address] 21407 Store Sales Manager: Agustin Logan MD Eosinophils (Bld) [#/Vol] 0.16 10*3/uL Normal 0.00-0.44 [facility] Comment on above: Performed By: #### B MP, MG, CDP #### [facility] [address] [place] [address] 49263 Store Sales Manager: Agustin Logan MD Eosinophils/100 WBC (Bld) 3 % Normal 1-4 [facility] Comment on above: Performed By: #### B MP, MG, CDP #### [facility] [address] [place] [address] 33855 Store Sales Manager: Agustin Logan MD Erythrocyte distribution width (RBC) [Ratio] 13.2 % Normal 11.8-14.4 [facility] Comment on above: Performed By: #### B MP, MG, CDP #### [facility] [address] [place] [address] 88844 Store Sales Manager: Agustin Logan MD Hematocrit (Bld) [Volume fraction] 35.7 % Low 36.3-47.1 [facility] Comment on above: Performed By: #### B MP MG, CDP #### [facility] [address] [place] [address] 05960 Store Sales Manager: Agustin Logan MD Hemoglobin (Bld) [Mass/Vol] 11.4 g/dL Low 11.9-15.1 [facility] Comment on above: Performed By: #### B MP, MG, CDP #### [facility] RehabilitationSpotzer Media [facility] [address] [place] [address] 15777 Store Sales Manager: Agustin Logan MD Immature granulocytes/100 WBC (Bld) 0 % Normal 0 [facility] Comment on above: Performed By: #### B JOSE MG, CDP #### [facility] [address] [place] [address] 17835 Store Sales Manager: Agustin Logan MD Lymphocytes (Bld) [#/Vol] 1.73 10*3/uL Normal 1.10-3.70 [facility] Comment on above: Performed By: #### B JOSE MG, CDP #### [facility] [address] [place] [address] 79858 Store Sales Manager: Agustin Logan MD Lymphocytes/100 WBC (Bld) 28 % Normal 24-43 [facility] Comment on above: Performed By: #### B MP MG, CDP #### [facility] RehabilitationSpot[facility] [address] [place] [address] 87641 Store Sales Manager: Agustin Logan MD MCH (RBC) [Entitic mass] 28.9 pg Normal 25.2-33.5 [facility] Comment on above: Performed By: #### B MP MG, CDP #### [facility] [address] [place] [address] 82921 Store Sales Manager: Agustin Logan MD MCHC (RBC) [Mass/Vol] 31.9 g/dL Normal 28.4-34.8 [facility] Comment on above: Performed By: #### B MP MG, CDP #### [address] [address] Store Sales Manager: Agustin Logan MD MCV (RBC) [Entitic vol] 90.6 fL Normal 82.6-102.9 [facility] Comment on above: Performed By: #### B MP MG, CDP #### [address] [address] Store Sales Manager: Agustin Logan MD Monocytes (Bld) [#/Vol] 0.41 10*3/uL Normal 0.10-1.20 [facility] Comment on above: Performed By: #### B JOSE MG, CDP #### [address] [address] Store Sales Manager: Agustin Logan MD Monocytes/100 WBC (Bld) 7 % Normal 3-12 [facility] Comment on above: Performed By: #### B JOSE MG, CDP #### [address] [address] Store Sales Manager: Agustin Logan MD Neutrophil (Seg) 62 % Normal 36-65 [facility] Comment on above: Performed By: #### B JOSE MG, CDP #### [address] [address] Store Sales Manager: Agustin Logan MD NRBC Automated 0.0 per 100 WBC Normal 0.0 [facility] Comment on above: Performed By: #### B JOSE MG, CDP #### [address] [address] Store Sales Manager: Agustin Logan MD Platelet mean volume (Bld) [Entitic vol] 9.3 fL Normal 8.1-13.5 [facility] Comment on above: Performed By: #### B MP MG, CDP #### [facility] [address] [place] [address] Store Sales Manager: Agustin Logan MD Platelets (Bld) [#/Vol] 360 10*3/uL Normal 138-453 [facility] Comment on above: Performed By: #### B MP, MG, CDP #### [facility] [address] [place] [address] Store Sales Manager: Agustin Logan MD RBC (Bld) [#/Vol] 3.94 10*6/uL Low 3.95-5.11 [facility] Comment on above: Performed By: #### B MP MG, CDP #### [facility] [address] [place] [address] Store Sales Manager: Agustin Logan MD WBC (Bld) [#/Vol] 6.1 10*3/uL Normal 3.5-11.3 [facility] Comment on above: Performed By: #### B MP MG, CDP #### [facility] [address] [place] [address] 10579 Store Sales Manager: Agustin Logan MD CT HEAD WO CONTRASTon [...] MD 03/10/23 Edited Result - FINAL Normal [facility] CT HEAD WO CONTRAST ADDENDUM: Subtle lucent [...] MD 03/10/23 Edited Result - FINAL Normal [facility] EKG 12 Leadon 03-10-2023 Atrial Rate 62 BPM [facility] P [place] 1 degrees [facility] P-R Interval 128 ms [facility] Q-T Interval 412 ms [facility] QRS Duration 76 ms [facility] QTc Calculation (Bazett) 418 ms [facility] R [place] 54 degrees [facility] T [place] 23 degrees [facility] Ventricular Rate 62 BPM [facility] [employer] [facility] Normal sinus rhythm Normal ECG When compared with ECG of 14-FEB-2023 02:26, No significant change was found Homa Lemus MD - 03/10/2023 Normal sinus rhythm Normal ECG When compared with ECG of 14-FEB-2023 02:26, No significant change was found [facility] Normal sinus rhythm Abnormal ECG When compared with ECG of 14-FEB-2023 02:26, Junctional rhythm has replaced Sinus rhythm Homa Lemus MD - 03/10/2023 Normal sinus rhythm Abnormal ECG When compared with ECG of 14-FEB-2023 02:26, Junctional rhythm has replaced Sinus rhythm [facility] EKG 12 LeadOrdered By: Jd Knutson on 03-10-2023 Atrial Rate 288 BPM [facility] [employer] [facility] Work Phone: Q-T Interval 414 ms [employer] [facility] Work Phone: QRS Duration 84 ms [employer] Work Phone: QTc Calculation (Bazett) 423 ms [employer] [facility] [employer] [facility] Work Phone: R [place] 60 degrees [facility] [facility] Work Phone: T [place] 19 degrees [facility]CTarget[facility] TechnologiesY [facility] Work Phone: Ventricular Rate 63 BPM [facility] [employer] Work Phone: [facility] [employer] Work Phone: Magnesiumon 03-10-2023 Magnesium [Mass/Vol] 2.0 mg/dL Normal 1.6-2.6 [facility] [employer] Comment on above: Performed By: #### B MP, MG, CDP #### [facility] [address] [place] [address] Store Sales Manager: Agustin Logan MD [facility] [employer] Basic Metabolic Panelon 02-20 Anion gap [Moles/Vol] 10 mmol/L 9 - 17 mmol/L [facility] [employer] Calcium [Mass/Vol] 9.1 mg/dL 8.6 - 10. 4 mg/dL [facility] [employer] Chloride [Moles/Vol] 104 mmol/L 98 - 107 mmol/L [facility] [employer] CO2 [Moles/Vol] 26 mmol/L 20 - 31 mmol/L [facility] [employer] Creatinine [Mass/Vol] 0.5 mg/dL 0.5 - 0.9 mg/dL [facility] GFR/1.73 sq M.predicted MDRD (S/P/Bld) [Vol rate/Area] - [facility] [employer] Comment on above: These results are not [...] [Mass/Vol] 89 mg/dL 70 - 99 mg/dL [facility] [employer] Potassium [Moles/Vol] 3.7 mmol/L 3.7 - 5.3 mmol/L [facility] [employer] Sodium [Moles/Vol] 140 mmol/L 135 - 144 mmol/L [facility] Urea nitrogen [Mass/Vol] 7 mg/dL 6 - 20 mg/dL [facility] [employer] Basic Metabolic Profon 03-09 Anion gap [Moles/Vol] 10 mmol/L Normal 9-17 [facility] Comment on above: Performed By: #### B MP, MG, CDP #### [facility] [address] [place] [address] 31299 Store Sales Manager: Agustin Logan MD Calcium [Mass/Vol] 9.1 mg/dL Normal 8.6-10.4 [facility] Comment on above: Performed By: #### B MP, MG, CDP #### [facility] [address] [place] [address] 23691 Store Sales Manager: Agustin Logan MD Chloride [Moles/Vol] 104 mmol/L Normal 98-107 [facility] Comment on above: Performed By: #### B MP MG, CDP #### [facility] [address] [place] [address] 82160 Store Sales Manager: Agustin Logan MD CO2 [Moles/Vol] 26 mmol/L Normal 20-31 [facility] Comment on above: Performed By: #### B JOSE MG, CDP #### [facility] [address] [place] [address] 67088 Store Sales Manager: Agustin Logan MD Creatinine [Mass/Vol] 0.5 mg/dL Normal 0.5-0.9 [facility] Comment on above: Performed By: #### B MP MG, CDP #### [address] [address] Store Sales Manager: Agustin Logan MD GFR/1.73 sq M.predicted among non-blacks MDRD (S/P/Bld) [Vol rate/Area] mL/min/{1.73_m2} Normal >60 [facility] Comment on above: Result Comment: These results [...] By: #### B JOSE MG, CDP #### [facility] RehabilitationSpot[facility] [address] [place] [address] 58695 Store Sales Manager: Agustin Logan MD Glucose [Mass/Vol] 89 mg/dL Normal 70-99 [facility] Comment on above: Performed By: #### B JOSE MG, CDP #### [facility] [address] [place] [address] 64157 Store Sales Manager: Agustin Logan MD Potassium [Moles/Vol] 3.7 mmol/L Normal 3.7-5.3 [facility] Comment on above: Performed By: #### B JOSE MG, CDP #### [facility] [address] [place] [address] 37663 Store Sales Manager: Agustin Logan MD Sodium [Moles/Vol] 140 mmol/L Normal 135-144 [facility] Comment on above: Performed By: #### B JOSE MG, CDP #### [facility] [address] [place] [address] 61149 Store Sales Manager: Agustin Logan MD Urea nitrogen [Mass/Vol] 7 mg/dL Normal 6-20 [facility] Comment on above: Performed By: #### B JOSE MG, CDP #### [facility] [address] [place] [address] 13392 Store Sales Manager: Agustin Logan MD CBC with Auto Differentialon 03-09-2023 Basophils (Bld) [#/Vol] [facility] [employer] Basophils/100 WBC (Bld) 0 % 0 - 2 % [facility] [employer] Eosinophils (Bld) [#/Vol] 0.14 10*3/uL [facility] Eosinophils/100 WBC (Bld) 2 % 1 - 4 % [facility] [employer] Erythrocyte distribution width (RBC) [Ratio] 13.2 % 11.8 - 14.4 % [facility] Hematocrit (Bld) [Volume fraction] 37.0 % 36.3 - 47.1 % [facility] Hemoglobin (Bld) [Mass/Vol] 12.1 g/dL 11.9 - 15.1 g/dL [facility] Immature granulocytes (Bld) [#/Vol] [facility] Immature granulocytes/100 WBC (Bld) 0 % 0 [facility] Lymphocytes/100 WBC (Bld) 37 % 24 - 43 % [facility] Lymphocytes/100 WBC (Bld) 2.28 % [facility] MCH (RBC) [Entitic mass] 29.4 pg 25.2 - 33.5 pg [facility] MCHC (RBC) [Mass/Vol] 32.7 g/dL 28.4 - 34.8 g/dL [facility] MCV (RBC) [Entitic vol] 89.8 fL 82.6 - 102.9 fL [facility] Monocytes/100 WBC (Bld) 6 % 3 - 12 % [facility] Monocytes/100 WBC (Bld) 0.39 % [facility] Neutrophils/100 WBC (Bld) 55 % 36 - 65 % [facility] Nucleated RBC/100 WBC (Bld) [Ratio] 0.0 % 0.0 per 100 WBC [facility] Platelet mean volume (Bld) [Entitic vol] 9.0 fL 8.1 - 13.5 fL [facility] Platelets (Bld) [#/Vol] 391 10*3/uL [facility] RBC (Bld) [#/Vol] 4.12 10*6/uL 3.95 - 5.11 m/uL [facility] Segmented neutrophils/100 WBC (Bld) 3.33 % [facility] WBC other (Bld) [#/Vol] 6.2 [facility] CBC with Diffon 03-09-2023 Abs. Basophil <0.03 Normal 0.00-0.20 [facility] Comment on above: Performed By: #### B MP, MG, CDP #### [facility] [address] [place] [address] 69481 Store Sales Manager: Agustin Logan MD Abs.Imm.Granulocyte <0.03 Normal 0.00-0.30 [facility] Comment on above: Performed By: #### B MP, MG, CDP #### [facility] [address] [place] [address] 24278 Store Sales Manager: Agustin Logan MD Abs.Neutrophil (Seg) 3.33 k/uL Normal 1.50-8.10 [facility] Comment on above: Performed By: #### B MP, MG, CDP #### [facility] [address] [place] [address] 38644 Store Sales Manager: Agustin Logan MD Basophils/100 WBC (Bld) 0 % Normal 0-2 [facility] Comment on above: Performed By: #### B MP, MG, CDP #### [facility] [address] [place] [address] 59210 Store Sales Manager: Agustin Logan MD Eosinophils (Bld) [#/Vol] 0.14 10*3/uL Normal 0.00-0.44 [facility] Comment on above: Performed By: #### B MP, MG, CDP #### [facility] [address] [place] [address] 16908 Store Sales Manager: Agustin Logan MD Eosinophils/100 WBC (Bld) 2 % Normal 1-4 [facility] Comment on above: Performed By: #### B MP, MG, CDP #### [facility] [address] [place] [address] 67516 Store Sales Manager: Agustin Logan MD Erythrocyte distribution width (RBC) [Ratio] 13.2 % Normal 11.8-14.4 [facility] Comment on above: Performed By: #### B MP, MG, CDP #### [facility] [address] [place] [address] 38974 Store Sales Manager: Agustin Logan MD Hematocrit (Bld) [Volume fraction] 37.0 % Normal 36.3-47.1 [facility] Comment on above: Performed By: #### B MP MG, CDP #### [facility] [address] [place] [address] 28541 Store Sales Manager: Agustin Logan MD Hemoglobin (Bld) [Mass/Vol] 12.1 g/dL Normal 11.9-15.1 [facility] Comment on above: Performed By: #### B MP, MG, CDP #### [facility] [address] [place] [address] 98988 Store Sales Manager: Agustin Logan MD Immature granulocytes/100 WBC (Bld) 0 % Normal 0 [facility] Comment on above: Performed By: #### B JOSE MG, CDP #### [facility] [address] [place] [address] 69407 Store Sales Manager: Agustin Logan MD Lymphocytes (Bld) [#/Vol] 2.28 10*3/uL Normal 1.10-3.70 [facility] Comment on above: Performed By: #### B JOSE MG, CDP #### [facility] [address] [place] [address]11 Store Sales Manager: Agustin Logan MD Lymphocytes/100 WBC (Bld) 37 % Normal 24-43 [facility] Comment on above: Performed By: #### B MP MG, CDP #### [facility] [address] [place] [address] 97012 Store Sales Manager: Agustin Logan MD MCH (RBC) [Entitic mass] 29.4 pg Normal 25.2-33.5 [facility] Comment on above: Performed By: #### B MP MG, CDP #### [facility] [address] [place] [address] 00747 Store Sales Manager: Agustin Logan MD MCHC (RBC) [Mass/Vol] 32.7 g/dL Normal 28.4-34.8 [facility] Comment on above: Performed By: #### B MP MG, CDP #### [address] [address] Store Sales Manager: Agustin Logan MD MCV (RBC) [Entitic vol] 89.8 fL Normal 82.6-102.9 [facility] Comment on above: Performed By: #### B MP MG, CDP #### [address] [address] Store Sales Manager: Agustin Logan MD Monocytes (Bld) [#/Vol] 0.39 10*3/uL Normal 0.10-1.20 [facility] Comment on above: Performed By: #### B JOSE MG, CDP #### [address] [address] Store Sales Manager: Agustin Logan MD Monocytes/100 WBC (Bld) 6 % Normal 3-12 [facility] Comment on above: Performed By: #### B JOSE MG, CDP #### [address] [address] Store Sales Manager: Agustin Logan MD Neutrophil (Seg) 55 % Normal 36-65 [facility] Comment on above: Performed By: #### B JOSE MG, CDP #### [address] [address] Store Sales Manager: Agustin Logan MD NRBC Automated 0.0 per 100 WBC Normal 0.0 [facility] Comment on above: Performed By: #### B JOSE MG, CDP #### [address] [address] Store Sales Manager: Agustin Logan MD Platelet mean volume (Bld) [Entitic vol] 9.0 fL Normal 8.1-13.5 [facility] Comment on above: Performed By: #### B MP, MG, CDP #### [facility] [place] [address] Store Sales Manager: Agustin Logan MD Platelets (Bld) [#/Vol] 391 10*3/uL Normal 138-453 [facility] Comment on above: Performed By: #### B MP, MG, CDP #### [facility] [address] [place] [address]455 Store Sales Manager: Agustin Logan MD RBC (Bld) [#/Vol] 4.12 10*6/uL Normal 3.95-5.11 [facility] Comment on above: Performed By: #### B MP, MG, CDP #### [facility] [address] [place] [address] 25873 Store Sales Manager: Agustin Logan MD WBC (Bld) [#/Vol] 6.2 10*3/uL Normal 3.5-11.3 [facility] Comment on above: Performed By: #### B MP, MG, CDP #### [facility] [address] [place] [address] Store Sales Manager: Agustin Logan MD COVID-19, Rapidon 03-09-2023 SARS-CoV-2 (COVID-19) RdRp gene MAXIM+probe Ql (Resp) Not detected Not Detected [facility] Comment on above: Rapid NAAT: The specimen [...] management decisions. Fact sheet for Healthcare Providers: https://www.fda.gov/media/907655/download Fact sheet for Patients: https://www.fda.gov/media/368630/download Methodology: Isothermal Nucleic Acid Amplification Specimen Description .NASOPHARYNGEAL SWAB [facility] CT CERVICAL SPINE WO CONTRAS Ton 03-09-2023 [...] Dwayne Poole MD 03/09/23 Final result Normal [facility] No acute abnormality of the cervical spine. [facility] EXAMINATION: CT OF THE CERVICAL SPINE [...] There is no prevertebral soft tissue swelling. [facility] Dwayne Sánchez MD - 03/09/2023 EXAMINATION: CT [...] No acute abnormality of the cervical spine. [facility] CT CERVICAL SPINE WO CONTRAS TOrdered By: Dwayne Poole on 03-09-2023 [facility] Work Phone: CT HEAD WO CONTRASTon 2022 [...] Adama Arredondo MD 03/09/23 Final result Normal [facility] Stable subacute left frontotemporal subdural hematoma measuring 7 mm in thickness without significant mass effect. No new hemorrhage or acute infarct identified. [facility] EXAMINATION: CT OF THE HEAD WITHOUT [...] of the visualized skull or soft tissues. [facility] Adama Arredondo MD - 03/09/2023 EXAMINATION: [...] No new hemorrhage or acute infarct identified. [facility] Radiology Study observation (narrative) [facility] CT HEAD WO CONTRAST EXAMINATION: CT OF [...] Terence Hollingsworth MD 03/09/23 Final result Normal [facility] Expected evolutionar y changes of left subdural hematoma and minimally hemorrhagic left temporal contusion compared to the previous exam of 02/18/2023. Again noted and unchanged are right temporal bone fracture and probable nondisplaced non angulated right zygomatic arch fracture. [facility] EXAMINATION: CT OF THE HEAD WITHOUT [...] fracture of the right zygomatic arch, stable. [facility] Terence Hollingsworth MD - 03/09/2023 EXAMINATION: [...] nondisplaced non angulated right zygomatic arch fracture. [facility] CT HEAD WO CONTRASTOrdered B y: Adama Arredondo on 03-09-2023 [facility] Work Phone: CT HEAD WO CONTRASTOrdered B y: Terence Suttonana on 03-09-2023 [facility] Work Phone: Calcium, Ionicon 03-09-2023 Calcium [Moles/Vol] 1.27 mmol/L Normal 1.13-1.33 [facility] Comment on above: Performed By: #### B JOSE MG, CDP #### [facility] [address] [place] [address] Store Sales Manager: Agustin Logan MD Calcium, Ionizedon 3 Calcium.ionized (Bld) [Moles/Vol] 1.27 mmol/L 1.13 - 1.33 mmol/L [facility] Drug Scr, Abuse, Uron 2022 Amphetamine(s),Ur Positive Abnormal NEG [facility] Comment on above: Result Comment: (Positive cutoff 1000 ng/mL) Performed By: #### B MP, MG, CDP #### [facility] [address] [place] [address] Store Sales Manager: Agustin Logan MD Barbiturate(s),Ur Negative Normal NEG [facility] Comment on above: Result Comment: (Positive cutoff 200 ng/mL) Performed By: #### B MP, MG, CDP #### [facility] [address] [place] [address] Store Sales Manager: Agustin Logan MD Benzodiazepine(s) Negative Normal NEG [facility] Comment on above: Result Comment: (Positive cutoff 200 ng/mL) Performed By: #### B MP, MG, CDP #### [facility] [address] [place] [address] Store Sales Manager: Agustin Logan MD Cannabinoid(s),Ur Negative Normal NEG [facility] Comment on above: Result Comment: (Positive cutoff 50 ng/mL) Performed By: #### B MP, MG, CDP #### [employer] [facility] [address] [place] [address] Store Sales Manager: Agustin Logan MD Cocaine Metabolite Negative Normal NEG [facility] Comment on above: Result Comment: (Positive cutoff 300 ng/mL) Performed By: #### B MP, MG, CDP #### [facility] [address] [place] [address] Store Sales Manager: Agustin Logan MD Fentanyl, Urine Positive Abnormal NEG [facility] Comment on above: Result Comment: (Positive cutoff 5 ng/ml) Performed By: #### B MP, MG, CDP #### [facility] [address] [place] [address] Store Sales Manager: Agustin Logan MD Interpretive Info Assay provides medic al screening only. The absence of expected drug(s) and/or Normal [facility] Comment on above: Result Comment: meta bolite(s) may indicate diluted or adulterated urine, limitations of testing or timing of collection. Testing for legal purposes should be confirmed by another method. To request confirmation of test result, please call the lab within 7 days of sample submission. Performed By: #### B JOSE MG, CDP #### [facility] [address] [place] [address] Store Sales Manager: Agustin Logan MD Methadone Ql (U) Negative Normal NEG [facility] Comment on above: Result Comment: (Positive cutoff 300 ng/mL) Performed By: #### B JOSE MG, CDP #### [facility] [address] [place] [address] Store Sales Manager: Agustin Logan MD Opiate(s), Ur Negative Normal NEG [facility] Comment on above: Result Comment: (Positive cutoff 300 ng/mL) Performed By: #### B JOSE MG, CDP #### [facility] [address] [place] [address] Store Sales Manager: Agustin Logan MD Oxycodone, Urine Negative Normal NEG [facility] Comment on above: Result Comment: (Positive cutoff 100 ng/mL) Performed By: #### B JOSE MG, CDP #### [facility] [address] [place] [address] Store Sales Manager: Agustin Logan MD Phencyclidine, Ur Negative Normal NEG [facility] Comment on above: Result Comment: (Positive cutoff 25 ng/mL) Performed By: #### B JOSE MG, CDP #### [facility] [address] [place] [address] Store Sales Manager: Agustin Logan MD Drug screen multi urineon Amphetamines Ql (U) Positive Abnormal NEGATIVE [facility] Comment on above: (Positive cutoff 1000 ng/mL) Barbiturates Screen Ql (U) Negative NEGATIVE [facility] Comment on above: (Positive cutoff 200 ng/mL) Benzodiazepines Ql (U) Negative NEGATIVE [facility] Comment on above: (Positive cutoff 200 ng/mL) Cannabinoids Screen Ql (U) Negative NEGATIVE [facility] Comment on above: (Positive cutoff 50 ng/mL) Cocaine Ql (U) Negative NEGATIVE [facility] Comment on above: (Positive cutoff 300 ng/mL) fentaNYL Ql (U) Positive Abnormal NEGATIVE [facility] [facility] Comment on above: (Positive cutoff 5 ng/ml) Interpretation and review of laboratory results Abnormal [facility] Methadone Ql (U) Negative NEGATIVE [facility] Comment on above: (Positive cutoff 300 ng/mL) Opiates Screen Ql (U) Negative NEGATIVE [facility] Comment on above: (Positive cutoff 300 ng/mL) oxyCODONE Ql (U) Negative NEGATIVE [facility] [employer] [facility] Comment on above: (Positive cutoff 100 ng/mL) Phencyclidine Ql (U) Negative NEGATIVE [facility] Comment on above: (Positive cutoff 25 ng/mL) Test Information Assay provides medic al screening only. The absence of expected drug(s) and/or metabolite(s) may indicate diluted or adulterated urine, limitations of testing or timing of collection. [facility] Comment on above: Testing for legal pu rposes should be confirmed by another method. To request confirmation of test result, please call the lab within 7 days of sample submission. [facility] Ethanolon 03-09-2023 Ethanol percent <0.010 NINF - 0.010 % [facility] Ethanolamine [Mass/Vol] mg/dL NINF - 10 mg/dL [facility] Ethanol Alcoholon 03-09-2023 Ethanol [Mass/Vol] mg/dL Normal <10 [facility] Comment on above: Performed By: #### B MP, MG, CDP #### [facility] [address] [place], [place] [phone] Store Sales Manager: Agustin Logan MD Ethanol percent <0.010 Normal <0.010 [facility] Comment on above: Performed By: #### B MP, MG, CDP #### [facility] [address] [place] [address] Store Sales Manager: Agustin Logan MD Magnesiumon 03-09-2023 Magnesium [Mass/Vol] 2.1 mg/dL Normal 1.6-2.6 [facility] Comment on above: Performed By: #### B MP, MG, CDP #### [facility] [address] [place] [address] Store Sales Manager: Agustin Logan MD Magnesium [Mass/Vol] 2.1 mg/dL 1.6 - 2.6 mg/dL [facility] No Panel Informationon 03-09 [facility] Radiology Study observation (narrative) [facility] [id number] 03-09-2023 SARS-CoV-2 (COVID-19) RNA MAXIM+probe Ql (Unsp spec) Not detected Normal NOTDET [facility] Comment on above: Result Comment: Rapid NAAT: [...] management decisions. Fact sheet for Healthcare Providers: https://www.fda.gov/media/491918/download Fact sheet for Patients: https://www.fda.gov/media/937071/download Methodology: Isothermal Nucleic Acid Amplification Performed By: #### C OVRB #### [facility] [address] [place], [place] [phone] Store Sales Manager: Agustin Logan MD TSHon 03-09-2023 TSH Qn 2.00 m[IU]/L [facility] Thyroid Stim. Horm.on 2022 Thyroid Stim. Horm. 2.00 uIU/mL Normal 0.30-5.00 [facility] Comment on above: Performed By: #### B JOSE MG, CDP #### [facility] [address] [place], [place] [phone] Store Sales Manager: Agustin Logan MD Troponinon 03-09-2023 Troponin, High Sens <6 Normal 0-14 [facility] Comment on above: Result Comment: High Sensitivity Troponin values cannot be compared with other Troponin methodologies. Performed By: #### B JOSE MG, CDP #### [facility] [address] [place], [place] [phone] Store Sales Manager: Agustin Logan MD Troponin I.cardiac High sensitivity method [Mass/Vol] ng/L 0 - 14 ng/L [facility] Comment on above: High Sensitivity Tro ponin values cannot be compared with other Troponin methodologies. CT soft tissue neck wo conon 02-28-2023 CT soft tissue neck wo con [facility] [place] [address] CT Scan Report Signed Patient: Felisa Jones MR#: [id number] 49 : 1985 Acct:[id number] Age/Sex: 37 / F ADM Date: 02/22/23 Loc: Room: 4S4862-5 Type: ADM IN Attending Dr: Gerald Hines [...] Claudette Grijalva M.D.02/28/2023 4:32 PM Dictation Location: [place] [address] Transcribed By: [facility] 02/28/23 1632 Dictated By: Claudette Grijalva II, MD 02/28/23 1623 Signed By: 02/28/23 1632 [facility] CT head/brain wo cox [place]ett 02-24 CT head/brain wo [facility] [place] [address] CT Scan Report Signed Patient: Felisa Jones MR#: [id number] 49 : 1985 Acct:[id number] Age/Sex: 37 / F ADM Date: 02/22/23 Loc: Room: 1T9758-3 Type: ADM IN Attending Dr: Gerald Hines [...] Eitan Grace M.D.02/24/2023 8:29 PM Dictation Location: [place] [address] Transcribed By: [facility] 02/24/232028 Dictated By: Eitan Grace DO 02/24/232024 Signed By: 02/24/232028 Normal [facility] Complete Blood Count Auto Di ffon 02-23-2023 Basophils (Bld) [#/Vol] 0.0 10*3/uL Normal 0.0-0.2 [facility] Comment on above: Result Comment: PERF ORMED BY: [place] [address] PATHOLOGIST TRAINING DEVELOPER MARITO MARIA M.D. Performed By: #### P AB, CBC, CMP #### [facility] [address] [place] [address] Basophils/100 WBC (Bld) 0.4 % Normal . [facility] Comment on above: Performed By: #### P AB, CBC, CMP #### [facility] [address] [place] [address] Eosinophils (Bld) [#/Vol] 0.2 10*3/uL Normal 0.0-0.45 [facility] Comment on above: Performed By: #### P AB, CBC, CMP #### [facility] [address] [place] [address] [place] Eosinophils/100 WBC (Bld) 3.4 % Normal . [facility] Comment on above: Performed By: #### P AB, CBC, CMP #### [address] Erythrocyte distribution width (RBC) [Ratio] 14.6 % Normal 11.9-15.3 [facility] Comment on above: Performed By: #### P AB, CBC, CMP #### [address] Hematocrit (Bld) [Volume fraction] 37.6 % Normal 34.0-46.4 [facility] Comment on above: Performed By: #### P AB, CBC, CMP #### [address] Hemoglobin (Bld) [Mass/Vol] 12.4 g/dL Normal 11.8-15.4 [facility] Comment on above: Performed By: #### P AB, CBC, CMP #### [address] Lymphocytes (Bld) [#/Vol] 1.4 10*3/uL Normal 1.00-4.8 [facility] Comment on above: Performed By: #### P AB, CBC, CMP #### [address] Lymphocytes/100 WBC (Bld) 20.2 % Normal . [facility] Comment on above: Performed By: #### P AB, CBC, CMP #### [address] MCH (RBC) [Entitic mass] 28.9 pg Normal 24.7-34.3 [facility] Comment on above: Performed By: #### P AB, CBC, CMP #### [address] MCV (RBC) [Entitic vol] 87.7 fL Normal 80-100 [facility] Comment on above: Performed By: #### P AB, CBC, CMP #### [facility] [address] Mean Corpuscular HGB Conc 33.0 g/dL Normal 32.0-35.0 [facility] Comment on above: Performed By: #### P AB, CBC, CMP #### [facility] [address] Monocytes (Bld) [#/Vol] 0.5 10*3/uL Normal 0.0-0.8 [facility] Comment on above: Performed By: #### P AB, CBC, CMP #### [address] Monocytes/100 WBC (Bld) 6.6 % Normal . [facility] Comment on above: Performed By: #### P AB, CBC, CMP #### [address] Neutrophils (Bld) [#/Vol] 4.9 10*3/uL Normal 1.8-7.7 [facility] Comment on above: Performed By: #### P AB, CBC, CMP #### [address] Neutrophils/100 WBC (Bld) 69.4 % Normal . [facility] Comment on above: Performed By: #### P AB, CBC, CMP #### [address] NRBC% 0.2 /100{WBC} Normal 0-0.5 [facility] Comment on above: Performed By: #### P AB, CBC, CMP #### [facility] [address] [place] [address] Platelet mean volume (Bld) [Entitic vol] 7.4 fL Normal 6.3-10.7 [facility] Comment on above: Performed By: #### P AB, CBC, CMP #### [facility] [address] [place] [address] [place] Platelets (Bld) [#/Vol] 280 10*3/uL Normal 150-450 [facility] Comment on above: Performed By: #### P AB, CBC, CMP #### [facility] [address] [place] [address] RBC (Bld) [#/Vol] 4.29 10*6/uL Normal 3.60-5.00 [facility] Comment on above: Performed By: #### P AB, CBC, CMP #### [address] WBC (Bld) [#/Vol] 7.1 10*3/uL Normal 3.8-11.6 [facility] Comment on above: Performed By: #### P AB, CBC, CMP #### [address] Comprehensive Metabolic Pane mariano 02-23-2023 Albumin [Mass/Vol] 4.4 g/dL Normal 3.5-5.7 [facility] Comment on above: Performed By: #### P AB, CBC, CMP #### [address] Albumin/Globulin [Mass ratio] 1.3 {ratio} Normal [facility] Comment on above: Performed By: #### P AB, CBC, CMP #### [address] ALP [Catalytic activity/Vol] 124 U/L High 34-104 [facility] Comment on above: Performed By: #### P AB, CBC, CMP #### [facility] [address] [place] [address] ALT [Catalytic activity/Vol] 104 U/L High 7-52 [facility] Comment on above: Performed By: #### P AB, CBC, CMP #### [facility] [address] [place] [address] Anion gap [Moles/Vol] 11.3 mmol/L Normal 6.0-15.0 [facility] Comment on above: Performed By: #### P AB, CBC, CMP #### [facility] [address] [place] [address] AST [Catalytic activity/Vol] 49 U/L High 13-39 [facility] Comment on above: Performed By: #### P AB, CBC, CMP #### [facility] [address] [place] [address] [place] Bilirubin [Mass/Vol] 0.3 mg/dL Normal 0.3-1.0 [facility] Comment on above: Performed By: #### P AB, CBC, CMP #### [facility] [address] [place] [address] [place] Calcium [Mass/Vol] 9.4 mg/dL Normal 8.6-10.3 [facility] Comment on above: Performed By: #### P AB, CBC, CMP #### [facility] [address] Chloride [Moles/Vol] 106 mmol/L Normal 98-107 [facility] Comment on above: Performed By: #### P AB, CBC, CMP #### [facility] [address] CO2 [Moles/Vol] 24.6 mmol/L Normal 21.0-31.0 [facility] Comment on above: Performed By: #### P AB, CBC, CMP #### [facility] [address] [place] [address] [place] Creatinine [Mass/Vol] 0.67 mg/dL Normal 0.60-1.20 [facility] Comment on above: Performed By: #### P AB, CBC, CMP #### [facility] [address] [place] [address] [place] Creatinine Clr Calc Pharmacy 111.80 [facility] Comment on above: Performed By: #### P AB, CBC, CMP #### [facility] [address] [place] [address] [place] GFR/1.73 sq M.predicted MDRD (S/P/Bld) [Vol rate/Area] mL/min/{1.73_m2} [facility] Comment on above: Performed By: #### P AB, CBC, CMP #### [facility] [address] [place] [address] [place] Globulin (S) [Mass/Vol] 3.5 g/dL Normal [facility] Comment on above: Performed By: #### P AB, CBC, CMP #### [address] Glucose [Mass/Vol] 89 mg/dL Normal 70-100 [facility] Comment on above: Result Comment: [facility] Glucose Reference Range is dependent on time and content of last meal. Glucose of more than 200 mg/dL in a nonstressed, ambulatory subject supports the diagnosis of Diabetes Mellitus. ADA recommended reference range Performed By: #### P AB, CBC, CMP #### [address] Potassium [Moles/Vol] 3.9 mmol/L Normal 3.5-5.1 [facility] Comment on above: Performed By: #### P AB, CBC, CMP #### [address] Protein [Mass/Vol] 7.9 g/dL Normal 6.4-8.9 [facility] Comment on above: Performed By: #### P AB, CBC, CMP #### [address] Sodium [Moles/Vol] 138 mmol/L Normal 136-145 [facility] Comment on above: Performed By: #### P AB, CBC, CMP #### [place] [address] [place] Urea nitrogen [Mass/Vol] 16 mg/dL Normal 7-25 [facility] Comment on above: Performed By: #### P AB, CBC, CMP #### [address] Prealbuminon 02-23-2023 Prealbumin [Mass/Vol] 28.6 mg/dL Normal 17.0-34.0 [facility] Comment on above: Result Comment: PERF ORMED BY: [place] [address] PATHOLOGIST TRAINING DEVELOPER MARITO MARIA M.D. Performed By: #### P AB, CBC, CMP #### [address] [place] [address] [facility] Basic Metab w/rfx MGon 02-21 Anion gap [Moles/Vol] 11 mmol/L Normal 9-17 [facility] Comment on above: Performed By: #### B MPX #### [address] [address] Store Sales Manager: Agustin Logan MD Calcium [Mass/Vol] 9.0 mg/dL Normal 8.6-10.4 [facility] Comment on above: Performed By: #### B MPX #### [address] [address] Store Sales Manager: Agustin Logan MD Chloride [Moles/Vol] 105 mmol/L Normal 98-107 [facility] Comment on above: Performed By: #### B MPX #### [address] [address] Store Sales Manager: Agustin Logan MD CO2 [Moles/Vol] 24 mmol/L Normal 20-31 [facility] Comment on above: Performed By: #### B MPX #### [address] [address] Store Sales Manager: Agustin Logan MD Creatinine [Mass/Vol] 0.51 mg/dL Normal 0.50-0.90 [facility] Comment on above: Performed By: #### B MPX #### [address] [address] Store Sales Manager: Agustin Logan MD GFR/1.73 sq M.predicted among non-blacks MDRD (S/P/Bld) [Vol rate/Area] mL/min/{1.73_m2} Normal >60 [facility] Comment on above: Result Comment: These results [...] secretion. Performed By: #### B MPX #### [facility] [address] [place] [address] Store Sales Manager: Agustin Logan MD Glucose [Mass/Vol] 94 mg/dL Normal 70-99 [facility] Comment on above: Performed By: #### B MPX #### [facility] [address] [place] [address] Store Sales Manager: Agustin Logan MD Potassium [Moles/Vol] 4.2 mmol/L Normal 3.7-5.3 [facility] Comment on above: Performed By: #### B MPX #### [address] [address] Store Sales Manager: Agustin Logan MD Sodium [Moles/Vol] 140 mmol/L Normal 135-144 [facility] Comment on above: Performed By: #### B MPX #### [facility] [address] [place] [address] Store Sales Manager: Agustin Logan MD Urea nitrogen [Mass/Vol] 11 mg/dL Normal 6-20 [facility] Comment on above: Performed By: #### B MPX #### [facility] [address] [place] [address] Store Sales Manager: Agustin Logan MD Basic Metabolic Panel w/ Ref desean to MGon 02-21-2023 Anion gap [Moles/Vol] 11 mmol/L 9 - 17 mmol/L [facility] Calcium [Mass/Vol] 9.0 mg/dL 8.6 - 10. 4 mg/dL [facility] Chloride [Moles/Vol] 105 mmol/L 98 - 107 mmol/L [facility] CO2 [Moles/Vol] 24 mmol/L 20 - 31 mmol/L [facility] Creatinine [Mass/Vol] 0.51 mg/dL 0.50 - 0.90 mg/dL [facility] GFR/1.73 sq M.predicted MDRD (S/P/Bld) [Vol rate/Area] - PIN[facility] Comment on above: These results are not [...] [Mass/Vol] 94 mg/dL 70 - 99 mg/dL [facility] Potassium [Moles/Vol] 4.2 mmol/L 3.7 - 5.3 mmol/L [facility] Sodium [Moles/Vol] 140 mmol/L 135 - 144 mmol/L [facility] Urea nitrogen [Mass/Vol] 11 mg/dL 6 - 20 mg/dL [facility] Basic Metab w/rfx MGon 02-20 Anion gap [Moles/Vol] 14 mmol/L Normal 9-17 [facility] Comment on above: Performed By: #### B MPX #### [facility] [address] [place] [address] Store Sales Manager: Agustin Logan MD Calcium [Mass/Vol] 8.7 mg/dL Normal 8.6-10.4 [facility] Comment on above: Performed By: #### B MPX #### [facility] [place], [place] [phone] Store Sales Manager: Agustin Logan MD Chloride [Moles/Vol] 104 mmol/L Normal 98-107 [facility] Comment on above: Performed By: #### B MPX #### [facility] [place], [place] [phone] Store Sales Manager: Agustin Logan MD CO2 [Moles/Vol] 20 mmol/L Normal 20-31 [facility] Comment on above: Performed By: #### B MPX #### [facility] [address] [place] [address] Store Sales Manager: Agustin Logan MD Creatinine [Mass/Vol] 0.48 mg/dL Low 0.50-0.90 [facility] Comment on above: Performed By: #### B MPX #### [address] [address] Store Sales Manager: Agustin Logan MD GFR/1.73 sq M.predicted among non-blacks MDRD (S/P/Bld) [Vol rate/Area] mL/min/{1.73_m2} Normal >60 [facility] Comment on above: Result Comment: These results [...] secretion. Performed By: #### B MPX #### [address] [address] Store Sales Manager: Agustin Logan MD Glucose [Mass/Vol] 93 mg/dL Normal 70-99 [facility] Comment on above: Performed By: #### B MPX #### [facility] [address] [place] [address] Store Sales Manager: Agustin Logan MD Potassium [Moles/Vol] 4.0 mmol/L Normal 3.7-5.3 [facility] Comment on above: Performed By: #### B MPX #### [address] [address] Store Sales Manager: Agustin Logan MD Sodium [Moles/Vol] 138 mmol/L Normal 135-144 [facility] Comment on above: Performed By: #### B MPX #### [facility] [address] [place], [place] [id number] Store Sales Manager: Agustin Logan MD Urea nitrogen [Mass/Vol] 13 mg/dL Normal 6-20 [facility] Comment on above: Performed By: #### B MPX #### [facility] [address] [place], [place] [id number] Store Sales Manager: Agustin Logan MD Basic Metabolic Panel w/ Ref desean to MGon 02-20-2023 Anion gap [Moles/Vol] 14 mmol/L 9 - 17 mmol/L [facility] [employer] Calcium [Mass/Vol] 8.7 mg/dL 8.6 - 10. 4 mg/dL [facility] [employer] Chloride [Moles/Vol] 104 mmol/L 98 - 107 mmol/L [facility] [employer] CO2 [Moles/Vol] 20 mmol/L 20 - 31 mmol/L [facility] [employer] Creatinine [Mass/Vol] 0.48 mg/dL Low 0.50 - 0.90 mg/dL [facility] GFR/1.73 sq M.predicted MDRD (S/P/Bld) [Vol rate/Area] - [facility] Comment on above: These results are not [...] [Mass/Vol] 93 mg/dL 70 - 99 mg/dL [facility] [employer] Interpretation and review of laboratory results Abnormal [facility] [employer] Potassium [Moles/Vol] 4.0 mmol/L 3.7 - 5.3 mmol/L [facility] [employer] Sodium [Moles/Vol] 138 mmol/L 135 - 144 mmol/L [facility] Urea nitrogen [Mass/Vol] 13 mg/dL 6 - 20 mg/dL [facility] Basic Metab w/rfx MGon 02-19 Anion gap [Moles/Vol] 9 mmol/L Normal 9-17 [facility] Comment on above: Performed By: #### U A #### [address] [address] Store Sales Manager: Agustin Logan MD Calcium [Mass/Vol] 8.9 mg/dL Normal 8.6-10.4 [facility] Comment on above: Performed By: #### U A #### [address] [address] Store Sales Manager: Agustin Logan MD Chloride [Moles/Vol] 105 mmol/L Normal 98-107 [facility] Comment on above: Performed By: #### U A #### [address] [address] Store Sales Manager: Agustin Logan MD CO2 [Moles/Vol] 24 mmol/L Normal 20-31 [facility] Comment on above: Performed By: #### U A #### [address] [address] Store Sales Manager: Agustin Logan MD Creatinine [Mass/Vol] 0.42 mg/dL Low 0.50-0.90 [facility] Comment on above: Performed By: #### U A #### [address] [address] Store Sales Manager: Agustin Logan MD GFR/1.73 sq M.predicted among non-blacks MDRD (S/P/Bld) [Vol rate/Area] mL/min/{1.73_m2} Normal >60 [facility] Comment on above: Result Comment: These results [...] secretion. Performed By: #### U A #### [facility] [address] [place] [address] Store Sales Manager: Agustin Logan MD Glucose [Mass/Vol] 85 mg/dL Normal 70-99 [facility] Comment on above: Performed By: #### U A #### [facility] [address] [place] [address] Store Sales Manager: Agustin Logan MD Potassium [Moles/Vol] 4.1 mmol/L Normal 3.7-5.3 [facility] Comment on above: Performed By: #### U A #### [address] [address] Store Sales Manager: Agustin Logan MD Sodium [Moles/Vol] 138 mmol/L Normal 135-144 [facility] Comment on above: Performed By: #### U A #### [address] [address] Store Sales Manager: Agustin Logan MD Urea nitrogen [Mass/Vol] 8 mg/dL Normal 6-20 [facility] Comment on above: Performed By: #### U A #### [address] [address] Store Sales Manager: Agustin Logan MD Basic Metabolic Panel w/ Ref desean to MGon 02-19-2023 Anion gap [Moles/Vol] 9 mmol/L 9 - 17 mmol/L [facility] Calcium [Mass/Vol] 8.9 mg/dL 8.6 - 10. 4 mg/dL [facility] Chloride [Moles/Vol] 105 mmol/L 98 - 107 mmol/L [facility] CO2 [Moles/Vol] 24 mmol/L 20 - 31 mmol/L [facility] Creatinine [Mass/Vol] 0.42 mg/dL Low 0.50 - 0.90 mg/dL [facility] GFR/1.73 sq M.predicted MDRD (S/P/Bld) [Vol rate/Area] - [facility] Comment on above: These results are not [...] [Mass/Vol] 85 mg/dL 70 - 99 mg/dL [facility] Interpretation and review of laboratory results Abnormal [facility] Potassium [Moles/Vol] 4.1 mmol/L 3.7 - 5.3 mmol/L [facility] Sodium [Moles/Vol] 138 mmol/L 135 - 144 mmol/L [facility] Urea nitrogen [Mass/Vol] 8 mg/dL 6 - 20 mg/dL [facility] CBC with Auto Differentialon 02-19-2023 Basophils (Bld) [#/Vol] [facility] Basophils/100 WBC (Bld) 0 % 0 - 2 % [facility] Eosinophils (Bld) [#/Vol] 0.17 10*3/uL [facility] Eosinophils/100 WBC (Bld) 3 % 1 - 4 % [facility] Erythrocyte distribution width (RBC) [Ratio] 13.7 % 11.8 - 14.4 % [facility] Hematocrit (Bld) [Volume fraction] 34.9 % Low 36.3 - 47.1 % [facility] Hemoglobin (Bld) [Mass/Vol] 11.1 g/dL Low 11.9 - 15.1 g/dL [facility] Immature granulocytes (Bld) [#/Vol] 0.03 10*3/uL [facility] Immature granulocytes/100 WBC (Bld) 1 % High 0 [facility] Interpretation and review of laboratory results Abnormal [facility] Lymphocytes/100 WBC (Bld) 23 % Low 24 - 43 % [facility] Lymphocytes/100 WBC (Bld) 1.39 % [facility] MCH (RBC) [Entitic mass] 29.4 pg 25.2 - 33.5 pg [facility] MCHC (RBC) [Mass/Vol] 31.8 g/dL 28.4 - 34.8 g/dL [facility] MCV (RBC) [Entitic vol] 92.6 fL 82.6 - 102.9 fL [facility] Monocytes/100 WBC (Bld) 6 % 3 - 12 % [facility] Monocytes/100 WBC (Bld) 0.37 % [facility] Neutrophils/100 WBC (Bld) 67 % High 36 - 65 % [facility] Nucleated RBC/100 WBC (Bld) [Ratio] 0.0 % 0.0 per 100 WBC [facility] Platelet mean volume (Bld) [Entitic vol] 9.6 fL 8.1 - 13.5 fL [facility] Platelets (Bld) [#/Vol] 251 10*3/uL [facility] RBC (Bld) [#/Vol] 3.77 10*6/uL Low 3.95 - 5.11 m/uL [facility] Segmented neutrophils/100 WBC (Bld) 4.05 % [facility] WBC other (Bld) [#/Vol] 6.0 [facility] CBC with Diffon 02-19-2023 Abs. Basophil <0.03 Normal 0.00-0.20 [facility] Comment on above: Performed By: #### U A #### [facility] [place], [place] [phone] Store Sales Manager: Agustin Logan MD Abs.Imm.Granulocyte 0.03 k/uL Normal 0.00-0.30 [facility] Comment on above: Performed By: #### U A #### [facility] [place] [address] Store Sales Manager: Agustin Logan MD Abs.Neutrophil (Seg) 4.05 k/uL Normal 1.50-8.10 [facility] Comment on above: Performed By: #### U A #### [address] [address] Store Sales Manager: Agustin Logan MD Basophils/100 WBC (Bld) 0 % Normal 0-2 [facility] Comment on above: Performed By: #### U A #### [place] [address] Store Sales Manager: Agustin Logan MD Eosinophils (Bld) [#/Vol] 0.17 10*3/uL Normal 0.00-0.44 [facility] Comment on above: Performed By: #### U A #### [place] [address] Store Sales Manager: Agustin Logan MD Eosinophils/100 WBC (Bld) 3 % Normal 1-4 [facility] Comment on above: Performed By: #### U A #### [place] [address] Store Sales Manager: Agustin Logan MD Erythrocyte distribution width (RBC) [Ratio] 13.7 % Normal 11.8-14.4 [facility] Comment on above: Performed By: #### U A #### [place] [address] Store Sales Manager: Agustin Logan MD Hematocrit (Bld) [Volume fraction] 34.9 % Low 36.3-47.1 [facility] Comment on above: Performed By: #### U A #### [place] [address] Store Sales Manager: Agustin Logan MD Hemoglobin (Bld) [Mass/Vol] 11.1 g/dL Low 11.9-15.1 [facility] Comment on above: Performed By: #### U A #### [address] [address] Store Sales Manager: Agustin Logan MD Immature granulocytes/100 WBC (Bld) 1 % High 0 [facility] Comment on above: Performed By: #### U A #### [address] [address] Store Sales Manager: Agustin Logan MD Lymphocytes (Bld) [#/Vol] 1.39 10*3/uL Normal 1.10-3.70 [facility] Comment on above: Performed By: #### U A #### [address] [address] Store Sales Manager: Agustin Logan MD Lymphocytes/100 WBC (Bld) 23 % Low 24-43 [facility] Comment on above: Performed By: #### U A #### [address] [address] Store Sales Manager: Agustin Logan MD MCH (RBC) [Entitic mass] 29.4 pg Normal 25.2-33.5 [facility] Comment on above: Performed By: #### U A #### [address] [address] Store Sales Manager: Agustin Logan MD MCHC (RBC) [Mass/Vol] 31.8 g/dL Normal 28.4-34.8 [facility] Comment on above: Performed By: #### U A #### [address] [address] Store Sales Manager: Agustin Logan MD MCV (RBC) [Entitic vol] 92.6 fL Normal 82.6-102.9 [facility] Comment on above: Performed By: #### U A #### [address] [address] Store Sales Manager: Agustin Logan MD Monocytes (Bld) [#/Vol] 0.37 10*3/uL Normal 0.10-1.20 [facility] Comment on above: Performed By: #### U A #### [address] [address] Store Sales Manager: Agustin Logan MD Monocytes/100 WBC (Bld) 6 % Normal 3-12 [facility] Comment on above: Performed By: #### U A #### [address] [address] Store Sales Manager: Agustni Logan MD Neutrophil (Seg) 67 % High 36-65 [facility] Comment on above: Performed By: #### U A #### [address] [address] Store Sales Manager: Agustin Logan MD NRBC Automated 0.0 per 100 WBC Normal 0.0 [facility] Comment on above: Performed By: #### U A #### [address] [address] Store Sales Manager: Agustin Logan MD Platelet mean volume (Bld) [Entitic vol] 9.6 fL Normal 8.1-13.5 [facility] Comment on above: Performed By: #### U A #### [address] [address] Store Sales Manager: Agustin Logan MD Platelets (Bld) [#/Vol] 251 10*3/uL Normal 138-453 [facility] Comment on above: Performed By: #### U A #### [address] [address] Store Sales Manager: Agustin Logan MD RBC (Bld) [#/Vol] 3.77 10*6/uL Low 3.95-5.11 [facility] Comment on above: Performed By: #### U A #### [address] [place] [address] Store Sales Manager: Agustin Logan MD WBC (Bld) [#/Vol] 6.0 10*3/uL Normal 3.5-11.3 [facility] Comment on above: Performed By: #### U A #### [address] [address] Store Sales Manager: Agustin Logan MD CT HEAD WO CONTRASTon 2022 Small subdural hemor rhage adjacent to the left cerebral hemisphere that is similar in size compared to prior exam. Stable small hemorrhagic contusion in the left temporal lobe with adjacent edema. [facility] EXAMINATION: CT OF THE HEAD WITHOUT [...] of the visualized skull or soft tissues. [facility] Neva Nicole MD - 02/18/2023 EXAMINATION: [...] the left temporal lobe with adjacent edema. [facility] Radiology Study observation (narrative) [facility] Ammoniaon 02-15-2023 Ammonia (P) [Moles/Vol] 31 umol/L Normal - [facility] Comment on above: Performed By: #### B MPX #### [facility] [place] [address] Store Sales Manager: Agustin Logan MD Ammonia (P) [Moles/Vol] 31 umol/L - 51 umol/L [facility] BLOOD GAS, VENOUSon 02-16-20 23 Carboxyhemoglobin (Bld) [Mass fraction] 1.8 % 0 - 5 % [facility] Comment on above: Reference Range: Non-Smokers 0-2% Average Smoker 2-4% Heavy Smoker <10% HCO3 (Bld) [Moles/Vol] 22.6 mmol/L Low 24 - 30 mmol/L [facility] Interpretation and review of laboratory results Abnormal [facility] Negative Base Excess, Nicola 2.2 mmol/L High 0.0 - 2.0 mmol/L [facility] Oxygen saturation in Blood 89.2 % High 60.0 - 85.0 % [facility] Oxygen/Inspired gas Respiratory system --on ventilator INFORMATION NOT PROVIDED [facility] pCO2, Nicola 41.3 [facility] pH, Nicola 7.357 7.320 - 7.420 [facility] pO2, Nicola 56.9 High [facility] CBC with Auto Differentialon 02-15-2023 Basophils (Bld) [#/Vol] [facility] Immature granulocytes (Bld) [#/Vol] [facility] Interpretation and review of laboratory results Abnormal [facility] Lymphocytes/100 WBC (Bld) 1.40 % [facility] Monocytes/100 WBC (Bld) 0.49 % [facility] Neutrophils/100 WBC (Bld) 67 % High 36 - 65 % [facility] Nucleated RBC/100 WBC (Bld) [Ratio] 0.0 % 0.0 per 100 WBC [facility] Segmented neutrophils/100 WBC (Bld) 4.07 % [facility] WBC other (Bld) [#/Vol] 6.1 [facility] CBC with Diffon 02-15-2023 Abs. Basophil <0.03 Normal 0.00-0.20 [facility] Comment on above: Performed By: #### B JOSE MG, CDP #### [facility] [address] [place] [address] Store Sales Manager: Agustin Logan MD Abs.Imm.Granulocyte <0.03 Normal 0.00-0.30 [facility] Comment on above: Performed By: #### B MP MG, CDP #### [facility] [address] [place] [phone] Store Sales Manager: Agustin Logan MD Abs.Neutrophil (Seg) 4.07 k/uL Normal 1.50-8.10 [facility] Comment on above: Performed By: #### B JOSE MG, CDP #### [facility] [address] [place] [address] [phone] Store Sales Manager: Agustin Logan MD Lymphocytes (Bld) [#/Vol] 1.40 10*3/uL Normal 1.10-3.70 [facility] Comment on above: Performed By: #### B MP, MG, CDP #### [facility] [address] [place] [address] Store Sales Manager: Agustin Logan MD Monocytes (Bld) [#/Vol] 0.49 10*3/uL Normal 0.10-1.20 [facility] Comment on above: Performed By: #### B MP, MG, CDP #### [facility] [address] [place] [address] Store Sales Manager: Agustin Logan MD Neutrophil (Seg) 67 % High 36-65 [facility] Comment on above: Performed By: #### B MP, MG, CDP #### [facility] [address] [place] [address] Store Sales Manager: Agustin Logan MD NRBC Automated 0.0 per 100 WBC Normal 0.0 [facility] Comment on above: Performed By: #### B MP, MG, CDP #### [facility] [address] [place] [address] Store Sales Manager: Agustin Logan MD WBC (Bld) [#/Vol] 6.1 10*3/uL Normal 3.5-11.3 [facility] Comment on above: Performed By: #### B MP, MG, CDP #### [facility] [address] [place] [address] Store Sales Manager: Agustin Logan MD Basophils/100 WBC (Bld) 0 % Normal 0-[address] [facility] Comment on above: Performed By: #### B MP, MG, CDP #### [facility] [address] [place] [address] Store Sales Manager: Agustin Logan MD Eosinophils (Bld) [#/Vol] 0.09 10*3/uL Normal 0.00-0.44 [facility] [employer] Comment on above: Performed By: #### B MG JOSE, CDP #### [facility] [address] [place] [address] Store Sales Manager: Agustin Logan MD Eosinophils/100 WBC (Bld) 2 % Normal 1-4 [facility] Comment on above: Performed By: #### B JOSE MG, CDP #### [facility] [address] [place] [address] Store Sales Manager: Agustin Logan MD Erythrocyte distribution width (RBC) [Ratio] 14.1 % Normal 11.8-14.4 [facility] Comment on above: Performed By: #### B JOSE MG, CDP #### [facility] [address] [place] [address] Store Sales Manager: Agustin Logan MD Hematocrit (Bld) [Volume fraction] 35.3 % Low 36.3-47.1 [facility] Comment on above: Performed By: #### B JOSE MG, CDP #### [facility] [address] [place] [address] Store Sales Manager: Agustin Logan MD Hemoglobin (Bld) [Mass/Vol] 11.1 g/dL Low 11.9-15.1 [facility] Comment on above: Performed By: #### B JOSE MG, CDP #### [facility] [address] [place] [address] Store Sales Manager: Agustin Logan MD Immature granulocytes/100 WBC (Bld) 0 % Normal 0 [facility] Comment on above: Performed By: #### B JOSE MG, CDP #### [facility] [address] [place] [address] Store Sales Manager: Agustin Logan MD Lymphocytes/100 WBC (Bld) 23 % Low 24-43 [facility] Comment on above: Performed By: #### B MP, MG, CDP #### [facility] [address] [place] [address] Store Sales Manager: Agustin Logan MD MCH (RBC) [Entitic mass] 29.1 pg Normal 25.2-33.5 [facility] Comment on above: Performed By: #### B MP, MG, CDP #### [facility] [address] [place] [address] Store Sales Manager: Agustin Logan MD MCHC (RBC) [Mass/Vol] 31.4 g/dL Normal 28.4-34.8 [facility] Comment on above: Performed By: #### B JOSE MG, CDP #### [facility] [address] [place] [address] Store Sales Manager: Agustin Logan MD MCV (RBC) [Entitic vol] 92.4 fL Normal 82.6-102.9 [facility] Comment on above: Performed By: #### B MP, MG, CDP #### [facility] [address] [place] [address] Store Sales Manager: Agustin Logan MD Monocytes/100 WBC (Bld) 8 % Normal 3-12 [facility] Comment on above: Performed By: #### B MP, MG, CDP #### [facility] [address] [place] [address] Store Sales Manager: Agustin Logan MD Platelet mean volume (Bld) [Entitic vol] 10.1 fL Normal 8.1-13.5 [facility] Comment on above: Performed By: #### B MP, MG, CDP #### [address] [address] Store Sales Manager: Agustin Logan MD Platelets (Bld) [#/Vol] 224 10*3/uL Normal 138-453 [facility] Comment on above: Performed By: #### B MP, MG, CDP #### [facility] [address] [place] [address] Store Sales Manager: Agustin Logan MD RBC (Bld) [#/Vol] 3.82 10*6/uL Low 3.95-5.11 [facility] Comment on above: Performed By: #### B MG JOSE, CDP #### [facility] [address] [place] [address] Store Sales Manager: Agustin Logan MD Calcium, Ionicon 02-15-2023 Calcium [Moles/Vol] 1.14 mmol/L Normal 1.13-1.33 [facility] Comment on above: Performed By: #### I OCAL VBG #### [facility] [address] [place] [address] Store Sales Manager: Agustin Logan MD Calcium, Ionizedon Calcium.ionized (Bld) [Moles/Vol] 1.14 mmol/L 1.13 - 1.33 mmol/L [facility] Comp Metabolic Profon 2022 Albumin [Mass/Vol] 3.4 g/dL Low 3.5-5.2 [facility] Comment on above: Performed By: #### B MG JOSE, CDP #### [facility] [address] [place] [address] Store Sales Manager: Agustin Logan MD Albumin/Glob Ratio 1.3 Normal 1.0-2.5 [facility] Comment on above: Performed By: #### B MG JOSE, CDP #### [facility] [address] [place] [address] Store Sales Manager: Agustin Logan MD Alkaline Phos 59 U/L Normal 35-104 [facility] Comment on above: Performed By: #### B MG JOSE, CDP #### [facility] [address] [place] [address] Store Sales Manager: Agustin Logan MD ALT [Catalytic activity/Vol] 7 U/L Normal 5-33 [facility] Comment on above: Performed By: #### B MP, MG, CDP #### [facility] [address] [place] [address] Store Sales Manager: Agustin Logan MD Anion gap [Moles/Vol] 9 mmol/L Normal 9-17 [facility] Comment on above: Performed By: #### B MP, MG, CDP #### [facility] [address] [place] [address] Store Sales Manager: Agustin Logan MD AST [Catalytic activity/Vol] 11 U/L Normal <32 [facility] Comment on above: Performed By: #### B MP, MG, CDP #### [facility] [address] [place] [address] Store Sales Manager: Agustin Logan MD Bilirubin [Mass/Vol] 0.4 mg/dL Normal 0.3-1.2 [facility] Comment on above: Performed By: #### B MP, MG, CDP #### [facility] [address] [place] [address] Store Sales Manager: Agustin Logan MD Calcium [Mass/Vol] 8.1 mg/dL Low 8.6-10.4 [facility] Comment on above: Performed By: #### B MP, MG, CDP #### [facility] [address] [place] [address] Store Sales Manager: Agustin Logan MD Chloride [Moles/Vol] 108 mmol/L High 98-107 [facility] Comment on above: Performed By: #### B MP, MG, CDP #### [facility] [address] [place] [address] Store Sales Manager: Agustin Logan MD CO2 [Moles/Vol] 20 mmol/L Normal 20-31 [facility] Comment on above: Performed By: #### B MP, MG, CDP #### [facility] [address] [place] [address] Store Sales Manager: Agustin Logan MD Creatinine [Mass/Vol] 0.44 mg/dL Low 0.50-0.90 [facility] Comment on above: Performed By: #### B MP, MG, CDP #### [employer] [facility] [address] [place] [address] Store Sales Manager: Agustin Logan MD GFR/1.73 sq M.predicted among non-blacks MDRD (S/P/Bld) [Vol rate/Area] mL/min/{1.73_m2} Normal >60 [facility] Comment on above: Result Comment: These results [...] By: #### B MP, MG, CDP #### [facility] [address] [place] [address] Store Sales Manager: Agustin Logan MD Glucose [Mass/Vol] 103 mg/dL High 70-99 [facility] Comment on above: Performed By: #### B MP, MG, CDP #### [facility] [address] [place] [address] Store Sales Manager: Agustin Logan MD Potassium [Moles/Vol] 4.0 mmol/L Normal 3.7-5.3 [facility] Comment on above: Performed By: #### B MP, MG, CDP #### [facility] [address] [place] [address] Store Sales Manager: Agustin Logan MD Protein [Mass/Vol] 6.0 g/dL Low 6.4-8.3 [facility] Comment on above: Performed By: #### B MP, MG, CDP #### [facility] [address] [place], [place] [phone] Store Sales Manager: Agustin Logan MD Sodium [Moles/Vol] 137 mmol/L Normal 135-144 [facility] Comment on above: Performed By: #### B MP, MG, CDP #### [facility] [address] [place], [place] [phone] Store Sales Manager: Agustin Logan MD Urea nitrogen [Mass/Vol] 5 mg/dL Low 6-20 [facility] Comment on above: Performed By: #### B MP, MG, CDP #### [facility] [address] [place], [place] [phone] Store Sales Manager: Agustin Logan MD Comprehensive Metabolic Pane [facility] 02-15-2023 Albumin [Mass/Vol] 3.4 g/dL Low 3.5 - 5.2 g/dL [facility] Albumin/Globulin [Mass ratio] 1.3 {ratio} 1.0 - 2.5 [facility] ALP [Catalytic activity/Vol] 59 U/L 35 - 104 U/L [facility] ALT [Catalytic activity/Vol] 7 U/L 5 - 33 U/L [facility] Anion gap [Moles/Vol] 9 mmol/L 9 - 17 mmol/L [facility] AST [Catalytic activity/Vol] 11 U/L NINF - 32 U/L [facility] Bilirubin [Mass/Vol] 0.4 mg/dL 0.3 - 1.2 mg/dL [facility] Calcium [Mass/Vol] 8.1 mg/dL Low 8.6 - 10. 4 mg/dL [facility] Chloride [Moles/Vol] 108 mmol/L High 98 - 107 mmol/L [facility] CO2 [Moles/Vol] 20 mmol/L 20 - 31 mmol/L [facility] Creatinine [Mass/Vol] 0.44 mg/dL Low 0.50 - 0.90 mg/dL [facility] GFR/1.73 sq M.predicted MDRD (S/P/Bld) [Vol rate/Area] - PINF [facility] Comment on above: These results are not [...] 103 mg/dL High 70 - 99 mg/dL [facility] Interpretation and review of laboratory results Abnormal [facility] Potassium [Moles/Vol] 4.0 mmol/L 3.7 - 5.3 mmol/L [facility] Protein [Mass/Vol] 6.0 g/dL Low 6.4 - 8.3 g/dL [facility] Sodium [Moles/Vol] 137 mmol/L 135 - 144 mmol/L [facility] Urea nitrogen [Mass/Vol] 5 mg/dL Low 6 - 20 mg/dL [facility] EKG 12 LeadOrdered By: Unkno wn Result on 02-15-2023 Atrial Rate 66 BPM [facility] P [place] 72 degrees [facility] P-R Interval 170 ms [facility] Q-T Interval 430 ms [facility] QRS Duration 86 ms [facility] QTc Calculation (Bazett) 450 ms [facility] R [place] 68 degrees [facility] T [place] 40 degrees [facility] Ventricular Rate 66 BPM [facility] EKG 12 Leadon 02-15-2023 Normal sinus rhythm with sinus arrhythmia Normal ECG No previous ECGs available [facility] STV MUSE Result, Unknown Prov ider - 02/15/2023 Normal sinus rhythm with sinus arrhythmia Normal ECG No previous ECGs available [facility] Lipaseon 02-15-2023 Lipase [Catalytic activity/Vol] 14 U/L Normal 13-60 [facility] Comment on above: Performed By: #### B MP, MG, CDP #### [facility] [address] [place] [address] [phone] Store Sales Manager: Agustin Logan MD Lipase [Catalytic activity/Vol] 14 U/L 13 - 60 U/L [facility] Magnesiumon 02-15-2023 Magnesium [Mass/Vol] 1.9 mg/dL Normal 1.6-2.6 [facility] Comment on above: Performed By: #### B MP MG, CDP #### [facility] [address] [place] [address] [phone] Store Sales Manager: Agustin Logan MD Magnesium [Mass/Vol] 1.9 mg/dL 1.6 - 2.6 mg/dL [facility] No Panel Informationon 02-15 [facility] Phosphoruson 02-15-2023 Phosphate [Mass/Vol] 3.2 mg/dL 2.6 - 4.5 mg/dL [facility] Phosphorus, Inorg.on 023 Phosphorus, Inorg. 3.2 mg/dL Normal 2.6-4.5 [facility] Comment on above: Performed By: #### B MP MG, CDP #### [facility] [address] [place] [address] [phone] Store Sales Manager: Agustin Logan MD TSHon 02-15-2023 TSH Qn 4.33 m[IU]/L [facility] Thyroid Stim. Horm.on 2022 Thyroid Stim. Horm. 4.33 uIU/mL Normal 0.30-5.00 [facility] Comment on above: Performed By: #### B MP, MG, CDP #### [facility] [address] [place] [address] [phone] Store Sales Manager: Agustin Logan MD Venous Blood Gaseson 023 Body Temp. 37.0 Normal [facility] Comment on above: Performed By: #### I OCAL, VBG #### [facility] [address] [place] [address] [phone] Store Sales Manager: Agustin Logan MD Carboxy Hgb 1.8 % Normal 0-5 [facility] Comment on above: Result Comment: Reference Range: Non-Smokers 0-2% Average Smoker 2-4% Heavy Smoker <10% Performed By: #### I OCMATTHEW, VBG #### [facility] [address] [place] [address] 94483 Store Sales Manager: Agustin Logan MD FIO2 INFORMATION NOT PROVIDED Normal [facility] Comment on above: Performed By: #### I OCMATTHEW, VBG #### [facility] [address] [place] [address] [phone] Store Sales Manager: Agustin Logan MD HCO3 (Bld) [Moles/Vol] 22.6 mmol/L Low 24-30 [facility] Comment on above: Performed By: #### I OCMATTHEW, VBG #### [facility] [address] [place] [address] [phone] Store Sales Manager: Agustin Logan MD Negative Base Excess 2.2 mmol/L High 0.0-2.0 [facility] Comment on above: Performed By: #### I OCMATTHEW, VBG #### [facility] [address] [place] [address] 62556 Store Sales Manager: Agustin Logan MD Oxygen saturation in Blood 89.2 % High 60.0-85.0 [facility] Comment on above: Performed By: #### I OCAL, VBG #### [facility] [address] [place] [address] [phone] Store Sales Manager: Agustin Logan MD pCO2 41.3 mm Hg Normal 39-55 [facility] Comment on above: Performed By: #### I OCAL, VBG #### [facility] [address] [place] [address] 71623 Store Sales Manager: Agustin Logan MD pH (Bld) 7.357 [pH] Normal 7.320-7.42 0 [facility] Comment on above: Performed By: #### I ABHISHEK HONEYCUTT #### [facility] [address] [place] [address] 80546 Store Sales Manager: Agustin Logan MD pO2 56.9 mm Hg High 30-50 [facility] Comment on above: Performed By: #### ABHISHEK AQUINO #### [facility] [address] [place] [address] 05221 Store Sales Manager: Agustin Logan MD Basic Metab w/rfx MGon 02-14 Potassium [Moles/Vol] 3.4 mmol/L Low 3.7-5.3 [facility] Comment on above: Performed By: #### B MG JOSE, CDP #### [address] [address] Store Sales Manager: Agustin Logan MD Anion gap [Moles/Vol] 16 mmol/L Normal 9-17 [facility] Comment on above: Performed By: #### B JOSE MG, CDP #### [facility] [address] [place] [address] [phone] Store Sales Manager: Agustin Logan MD Calcium [Mass/Vol] 7.7 mg/dL Low 8.6-10.4 [facility] Comment on above: Performed By: #### B MP MG, CDP #### [facility] [address] [place] [address] 37332 Store Sales Manager: Agustin Logan MD Chloride [Moles/Vol] 103 mmol/L Normal 98-107 [facility] Comment on above: Performed By: #### B JOSE MG, CDP #### [facility] [address] [place] [address] 50631 Store Sales Manager: Agustin Logan MD CO2 [Moles/Vol] 15 mmol/L Low 20-31 [facility] Comment on above: Performed By: #### B JOSE MG, CDP #### [facility] [address] [place] [address] [phone] Store Sales Manager: Agustin Logan MD Creatinine [Mass/Vol] 0.36 mg/dL Low 0.50-0.90 [facility] Comment on above: Performed By: #### B MP MG, CDP #### [facility] [address] [place] [address] [phone] Store Sales Manager: Agustin Loagn MD GFR/1.73 sq M.predicted among non-blacks MDRD (S/P/Bld) [Vol rate/Area] mL/min/{1.73_m2} Normal >60 [facility] Comment on above: Result Comment: These results [...] By: #### B JOSE MG, CDP #### [facility] [address] [place] [address] 31588 Store Sales Manager: Agustin Logan MD Glucose [Mass/Vol] 105 mg/dL High 70-99 [facility] Comment on above: Performed By: #### B JOSE MG, CDP #### [facility] [address] [place] [address] [phone] Store Sales Manager: Agustin Logan MD Sodium [Moles/Vol] 134 mmol/L Low 135-144 [facility] Comment on above: Performed By: #### B JOSE MG, CDP #### [facility] [address] [place] [address] 39763 Store Sales Manager: Agustin Logan MD Urea nitrogen [Mass/Vol] 6 mg/dL Normal 6-20 [facility] Comment on above: Performed By: #### B MP, MG, CDP #### [facility] [address] [place] [address] Store Sales Manager: Agustin Logan MD Basic Metabolic Panel w/ Ref desean to MGon 02-14-2023 Anion gap [Moles/Vol] 16 mmol/L 9 - 17 mmol/L [facility] Calcium [Mass/Vol] 7.7 mg/dL Low 8.6 - 10. 4 mg/dL [facility] Chloride [Moles/Vol] 103 mmol/L 98 - 107 mmol/L [facility] CO2 [Moles/Vol] 15 mmol/L Low 20 - 31 mmol/L [facility] Creatinine [Mass/Vol] 0.36 mg/dL Low 0.50 - 0.90 mg/dL [facility] GFR/1.73 sq M.predicted MDRD (S/P/Bld) [Vol rate/Area] - [facility]F [facility] Comment on above: These results are not [...] 105 mg/dL High 70 - 99 mg/dL [facility] Interpretation and review of laboratory results Abnormal [facility] Potassium [Moles/Vol] 3.4 mmol/L Low 3.7 - 5.3 mmol/L [facility] Sodium [Moles/Vol] 134 mmol/L Low 135 - 144 mmol/L [facility] Urea nitrogen [Mass/Vol] 6 mg/dL 6 - 20 mg/dL [facility] CBC with Auto Differentialon 02-14-2023 Basophils (Bld) [#/Vol] 0.03 10*3/uL [facility] Basophils/100 WBC (Bld) 0 % 0 - 2 % [facility] Eosinophils (Bld) [#/Vol] [facility] Eosinophils/100 WBC (Bld) 0 % Low 1 - 4 % [facility] Erythrocyte distribution width (RBC) [Ratio] 13.6 % 11.8 - 14.4 % [facility] Hematocrit (Bld) [Volume fraction] 38.6 % 36.3 - 47.1 % [facility] Hemoglobin (Bld) [Mass/Vol] 11.9 g/dL 11.9 - 15.1 g/dL [facility] Immature granulocytes (Bld) [#/Vol] 0.03 10*3/uL [facility] Immature granulocytes/100 WBC (Bld) 0 % 0 [facility] Interpretation and review of laboratory results Abnormal [facility] Lymphocytes/100 WBC (Bld) 8 % Low 24 - 43 % [facility] Lymphocytes/100 WBC (Bld) 0.92 % Low [facility] MCH (RBC) [Entitic mass] 29.1 pg 25.2 - 33.5 pg [facility] MCHC (RBC) [Mass/Vol] 30.8 g/dL 28.4 - 34.8 g/dL [facility] MCV (RBC) [Entitic vol] 94.4 fL 82.6 - 102.9 fL [facility] Monocytes/100 WBC (Bld) 3 % 3 - 12 % [facility] Monocytes/100 WBC (Bld) 0.30 % [facility] Neutrophils/100 WBC (Bld) 88 % High 36 - 65 % [facility] Nucleated RBC/100 WBC (Bld) [Ratio] 0.0 % 0.0 per 100 WBC [facility] Platelet mean volume (Bld) [Entitic vol] 9.8 fL 8.1 - 13.5 fL [facility] Platelets (Bld) [#/Vol] 238 10*3/uL [facility] RBC (Bld) [#/Vol] 4.09 10*6/uL 3.95 - 5.11 m/uL [facility] Segmented neutrophils/100 WBC (Bld) 9.92 % High [facility] WBC other (Bld) [#/Vol] 11.2 [facility] CBC with Diffon 02-14-2023 Abs. Basophil 0.03 k/uL Normal 0.00-0.20 [facility] Comment on above: Performed By: #### B JOSE MG, CDP #### [facility] [address] [place] [address] [phone] Store Sales Manager: Agustin Logan MD Abs. Eosinophil <0.03 Normal 0.00-0.44 [facility] Comment on above: Performed By: #### B JOSE MG, CDP #### [facility] [address] [place] [address] 35898 Store Sales Manager: Agustin Logan MD Abs.Imm.Granulocyte 0.03 k/uL Normal 0.00-0.30 [facility] Comment on above: Performed By: #### B JOSE MG, CDP #### [facility] [address] [place] [address] 38307 Store Sales Manager: Agustin Logan MD Abs.Neutrophil (Seg) 9.92 k/uL High 1.50-8.10 [facility] Comment on above: Performed By: #### B JOSE MG, CDP #### [facility] [address] [place] [address] 75914 Store Sales Manager: Agustin Logan MD Basophils/100 WBC (Bld) 0 % Normal 0-2 [facility] Comment on above: Performed By: #### B MP MG, CDP #### [facility] [address] [place] [address] 52096 Store Sales Manager: Agustin Logan MD Eosinophils/100 WBC (Bld) 0 % Low 1-4 [facility] Comment on above: Performed By: #### B JOSE MG, CDP #### [facility] [address] [place] [address] 35128 Store Sales Manager: Agustin Logan MD Erythrocyte distribution width (RBC) [Ratio] 13.6 % Normal 11.8-14.4 [facility] Comment on above: Performed By: #### B MP, MG, CDP #### [facility] [address] [place] [address] 80226 Store Sales Manager: Agustin Logan MD Hematocrit (Bld) [Volume fraction] 38.6 % Normal 36.3-47.1 [facility] Comment on above: Performed By: #### B MP, MG, CDP #### [facility] [address] [place] [address] 24650 Store Sales Manager: Agustin Logan MD Hemoglobin (Bld) [Mass/Vol] 11.9 g/dL Normal 11.9-15.1 [facility] Comment on above: Performed By: #### B MP, MG, CDP #### [facility] [address] [place] [address] 13566 Store Sales Manager: Agustin Logan MD Immature granulocytes/100 WBC (Bld) 0 % Normal 0 [facility] Comment on above: Performed By: #### B MP, MG, CDP #### [address] [address] Store Sales Manager: Agustin Logan MD Lymphocytes (Bld) [#/Vol] 0.92 10*3/uL Low 1.10-3.70 [facility] Comment on above: Performed By: #### B MP, MG, CDP #### [facility] [address] [place] [address] 37236 Store Sales Manager: Agustin Logan MD Lymphocytes/100 WBC (Bld) 8 % Low 24-43 [facility] Comment on above: Performed By: #### B MP, MG, CDP #### [facility] [address] [place] [address] [phone] Store Sales Manager: Agustin Logan MD MCH (RBC) [Entitic mass] 29.1 pg Normal 25.2-33.5 [facility] Comment on above: Performed By: #### B MP, MG, CDP #### [facility] [address] [place] [address] 77988 Store Sales Manager: Agustin Logan MD MCHC (RBC) [Mass/Vol] 30.8 g/dL Normal 28.4-34.8 [facility] Comment on above: Performed By: #### B MP, MG, CDP #### [facility] [address] [place] [address] 18680 Store Sales Manager: Agustin Logan MD MCV (RBC) [Entitic vol] 94.4 fL Normal 82.6-102.9 [facility] Comment on above: Performed By: #### B MP, MG, CDP #### [facility] [address] [place] [address] 89743 Store Sales Manager: Agustin Logan MD Monocytes (Bld) [#/Vol] 0.30 10*3/uL Normal 0.10-1.20 [facility] Comment on above: Performed By: #### B MP, MG, CDP #### [address] [address] Store Sales Manager: Agustin Logan MD Monocytes/100 WBC (Bld) 3 % Normal 3-12 [facility] Comment on above: Performed By: #### B MP, MG, CDP #### [facility] [address] [place] [address] 07841 Store Sales Manager: Agustin Logan MD Neutrophil (Seg) 88 % High 36-65 [facility] Comment on above: Performed By: #### B MP, MG, CDP #### [facility] [address] [place] [address] 25649 Store Sales Manager: Agustin Logan MD NRBC Automated 0.0 per 100 WBC Normal 0.0 [facility] Comment on above: Performed By: #### B MP, MG, CDP #### [address] [address] Store Sales Manager: Agustin Logan MD Platelet mean volume (Bld) [Entitic vol] 9.8 fL Normal 8.1-13.5 [facility] Comment on above: Performed By: #### B MP, MG, CDP #### [address] [address] Store Sales Manager: Agustin Logan MD Platelets (Bld) [#/Vol] 238 10*3/uL Normal 138-453 [facility] Comment on above: Performed By: #### B MP, MG, CDP #### [facility] [address] [place] [address] 94244 Store Sales Manager: Agustin Logan MD RBC (Bld) [#/Vol] 4.09 10*6/uL Normal 3.95-5.11 [facility] Comment on above: Performed By: #### B MP, MG, CDP #### [facility] [address] [place] [address] 73629 Store Sales Manager: Agustin Logan MD WBC (Bld) [#/Vol] 11.2 10*3/uL Normal 3.5-11.3 [facility] Comment on above: Performed By: #### B MP, MG, CDP #### [address] [address] Store Sales Manager: Agustin Logan MD CT CERVICAL SPINE WO [...] Gerald Martinez MD 02/14/23 Final result Normal [facility] No acute fracture de formity, collapse, or subluxation at the cervical spine. [facility] EXAMINATION: CT OF THE CERVICAL SPINE [...] There is no prevertebral soft tissue swelling. [facility] Gerald Martinez MD - 02/14/2023 EXAMINATION: [...] collapse, or subluxation at the cervical spine. [facility] CT CHEST ABDOMEN PELVIS W CO NTRASTon [...] Terence Hollingsworth MD 02/14/23 Final result Normal [facility] CT CHEST ABDOMEN PELVIS W CO NTRAST Additional Contrast? Noneon 02-14-[address] of the chest/abdomen/pelvis. [facility] EXAMINATION: CT OF THE CHEST, ABDOMEN, [...] acute bone or soft tissue abnormality evident. [facility] Terence Hollingsworth MD - 02/14/2023 EXAMINATION: [...] IMPRESSION: Unremarkable postcontrast CT of the chest/abdomen/pelvis. [facility] CT CHEST ABDOMEN PELVIS W CO NTRAST Additional Contrast? NoneOrdered By: Terence Hollingsworth on 02-14-2023 [facility] Work Phone: CT HEAD WO CONTRASTon 2022 [...] of a right-sided skull fracture without displacement. [facility] RIS Neva Du MD - 02/14/2023 EXAMINATION: [...] lobe anteriorly. Stable nondisplaced right-sided skull fracture. [facility] Radiology Study observation (narrative) [facility] There is an acute romero bdural hematoma [...] to Dr. Donahue on 02/14/2023 at 01:44. [facility] EXAMINATION: CT OF THE HEAD WITHOUT [...] of the scalp. No radiopaque foreign body. [facility] Gerald Martinez MD - 02/14/2023 EXAMINATION: [...] to Dr. Donahue on 02/14/2023 at 01:44. [facility] CT HEAD WO CONTRASTOrdered B y: Neva Nicole on 02-14-2023 [facility] Work Phone: CT HEAD WO CONTRASTOrdered B y: Gerald Martinez on 02-14-2023 IS[facility] LAT[facility]HA [facility] [employer] Work Phone: CT LUMBAR SPINE TRAUMA RECON [...] Gerald Martinez MD 02/14/23 Final result Normal [facility] CT THORACIC SPINE TRAUMA REC ONSTRUCTIONon 02-14-2023 [...] Gerald Martinez MD 02/14/23 Final result Normal [facility] Calcium, Ionicon 02-14-2023 Calcium [Moles/Vol] 0.94 mmol/L Low 1.13-1.33 [facility] Comment on above: Performed By: #### B MP, MG, CDP #### [facility] [address] [place], [place] [phone] Store Sales Manager: Agustin Logan MD Calcium, Ionizedon 3 Calcium.ionized (Bld) [Moles/Vol] 0.94 mmol/L Low 1.13 - 1.33 mmol/L [facility] Drug Scr, Abuse, Uron 2022 Amphetamine(s),Ur Positive Abnormal NEG [facility] Comment on above: Result Comment: (Positive cutoff 1000 ng/mL) Performed By: #### B MPX #### [facility] [address] [place] [address] 87332 Store Sales Manager: Agustin Logan MD Barbiturate(s),Ur Negative Normal NEG [facility] Comment on above: Result Comment: (Positive cutoff 200 ng/mL) Performed By: #### B MPX #### [facility] [address] [place] [address] 09742 Store Sales Manager: Agustin Logan MD Benzodiazepine(s) Negative Normal NEG [facility] Comment on above: Result Comment: (Positive cutoff 200 ng/mL) Performed By: #### B MPX #### [facility] [address] [place] [address] 24736 Store Sales Manager: Agustin Logan MD Cannabinoid(s),Ur Negative Normal NEG [facility] Comment on above: Result Comment: (Positive cutoff 50 ng/mL) Performed By: #### B MPX #### [facility] [address] [place] [address] 58774 Store Sales Manager: Agustin Logan MD Cocaine Metabolite Negative Normal NEG [facility] Comment on above: Result Comment: (Positive cutoff 300 ng/mL) Performed By: #### B MPX #### [facility] [address] [place] [address] 80712 Store Sales Manager: Agustin Logan MD Fentanyl, Urine Negative Normal NEG [facility] Comment on above: Result Comment: (Positive cutoff 5 ng/ml) Performed By: #### B MPX #### [facility] [address] [place] [address] 09861 Store Sales Manager: Agustin Logan MD Interpretive Info Assay provides medic al screening only. The absence of expected drug(s) and/or Normal [facility] Comment on above: Result Comment: meta bolite(s) may indicate diluted or adulterated urine, limitations of testing or timing of collection. Testing for legal purposes should be confirmed by another method. To request confirmation of test result, please call the lab within 7 days of sample submission. Performed By: #### B MPX #### [facility] [address] [place] [address] 01537 Store Sales Manager: Agustin Logan MD Methadone Ql (U) Negative Normal NEG [facility] Comment on above: Result Comment: (Positive cutoff 300 ng/mL) Performed By: #### B MPX #### [employer] [address] [place] [address] 76593 Store Sales Manager: Agustin Logan MD Opiate(s), Ur Negative Normal NEG [facility] Comment on above: Result Comment: (Positive cutoff 300 ng/mL) Performed By: #### B MPX #### [facility] [address] [place] [address] 79291 Store Sales Manager: Agustin Logan MD Oxycodone, Urine Negative Normal NEG [facility] Comment on above: Result Comment: (Positive cutoff 100 ng/mL) Performed By: #### B MPX #### [facility] [address] [place] [address] 83655 Store Sales Manager: Agustin Logan MD Phencyclidine, Ur Negative Normal NEG [facility] Comment on above: Result Comment: (Positive cutoff 25 ng/mL) Performed By: #### B MPX #### [facility] [address] [place] [address] 84486 Store Sales Manager: Agustin Logan MD Drug screen multi urineon [...] 300 ng/mL) fentaNYL Ql (U) Negative NEGATIVE [facility] [employer] Comment on above: (Positive cutoff 5 ng/ml) Interpretation and review of laboratory results Abnormal [facility] Methadone Ql (U) Negative NEGATIVE [facility] Comment on above: (Positive cutoff 300 ng/mL) Opiates Screen Ql (U) Negative NEGATIVE [facility] Comment on above: (Positive cutoff 300 ng/mL) oxyCODONE Ql (U) Negative NEGATIVE [facility] Comment on above: (Positive cutoff 100 ng/mL) Phencyclidine Ql (U) Negative NEGATIVE [facility] Comment on above: (Positive cutoff 25 ng/mL) Test Information Assay provides medic al screening only. The absence of expected drug(s) and/or metabolite(s) may indicate diluted or adulterated urine, limitations of testing or timing of collection. [facility] Comment on above: Testing for legal pu rposes should be confirmed by another method. To request confirmation of test result, please call the lab within 7 days of sample submission. [facility] Hepatic Function Panelon Albumin [Mass/Vol] 4.0 g/dL 3.5 - 5.2 g/dL [facility] Albumin/Globulin [Mass ratio] 1.4 {ratio} 1.0 - 2.5 [facility] ALP [Catalytic activity/Vol] 55 U/L 35 - 104 U/L [facility] ALT [Catalytic activity/Vol] 9 U/L 5 - 33 U/L [facility] AST [Catalytic activity/Vol] 15 U/L NINF - 32 U/L [facility] Bilirubin [Mass/Vol] 0.2 mg/dL Low 0.3 - 1.2 mg/dL [facility] Bilirubin.direct [Mass/Vol] mg/dL NINF - 0.3 mg/dL [facility] Bilirubin.indirect [Mass/Vol] Can not be calculated 0.0 - 1.0 mg/dL [facility] Interpretation and review of laboratory results Abnormal [facility] Protein [Mass/Vol] 6.9 g/dL 6.4 - 8.3 g/dL [facility] Lactic Acidon 02-14-2023 Lactic Acid,Whole Bl 1.3 mmol/L Normal 0.7-2.1 [facility] Comment on above: Performed By: #### B MPX #### [facility] [address] [place] [address] [phone] Store Sales Manager: Agustin Logan MD Lactic Acid, Whole Blood 1.3 mmol/L 0.7 - 2.1 mmol/L [facility] Lactic Acid,Whole Bl 2.6 mmol/L High 0.7-2.1 [facility] Comment on above: Performed By: #### B JOSE MG, CDP #### [facility] [address] [place] [address] 99303 Store Sales Manager: Agustin Logan MD Lactic Acid, Whole Blood 2.6 mmol/L High 0.7 - 2.1 mmol/L [facility] Liver Profileon 02-14-2023 Albumin [Mass/Vol] 4.0 g/dL Normal 3.5-5.2 [facility] Comment on above: Performed By: #### B JOSE MG, CDP #### [facility] [address] [place] [address] 44889 Store Sales Manager: Agustin Logan MD Albumin/Glob Ratio 1.4 Normal 1.0-2.5 [facility] Comment on above: Performed By: #### B JOSE MG, CDP #### [facility] [address] [place] [address] [phone] Store Sales Manager: Agustin Logan MD Alkaline Phos 55 U/L Normal 35-104 [facility] Comment on above: Performed By: #### B JOSE MG, CDP #### [facility] [address] [place] [address] [phone] Store Sales Manager: Agustin Logan MD ALT [Catalytic activity/Vol] 9 U/L Normal 5-33 [facility] Comment on above: Performed By: #### B JOSE MG, CDP #### [facility] [address] [place] [address] Store Sales Manager: Agustin Logan MD AST [Catalytic activity/Vol] 15 U/L Normal <32 [facility] Comment on above: Performed By: #### B MP, MG, CDP #### [facility] [address] [place] [address] 36187 Store Sales Manager: Agustin Logan MD Bilirubin [Mass/Vol] 0.2 mg/dL Low 0.3-1.2 [facility] Comment on above: Performed By: #### B MP, MG, CDP #### [facility] [address] [place] [address] [phone] Store Sales Manager: Agustin Logan MD Bilirubin, Indirect Can not be calculated Normal 0.0-1 .0 [facility] Comment on above: Performed By: #### B MP, MG, CDP #### [facility] [address] [place] [address] [phone] Store Sales Manager: Agustin Logan MD Bilirubin.indirect [Mass/Vol] mg/dL Normal <0.3 [facility] Comment on above: Performed By: #### B MP, MG, CDP #### [facility] [address] [place] [address] [phone] Store Sales Manager: Agustin Logan MD Protein [Mass/Vol] 6.9 g/dL Normal 6.4-8.3 [facility] Comment on above: Performed By: #### B MP, MG, CDP #### [facility] [address] [place] [address] [phone] Store Sales Manager: Agustin Logan MD MRSA DNA Probe, Nasalon - MRSA, DNA, Nasal Negative NEGATIVE [facility] Comment on above: NEGATIVE: MRSA DNA n ot detected by nucleic acid amplification. Results should be used as an adjunct to nosocomial control efforts to identify patients needing enhanced precautions. The test is not intended to identify patients with staphylococcal infections. Results should not be used to guide or monitor treatment for MRSA infections. Specimen Description .NASAL SWAB [facility] MRSA, DNA, Nasalon MRSA, DNA, Nasal Negative Normal NEG [facility] Comment on above: Result Comment: NEGA TIVE: MRSA DNA not detected by nucleic acid amplification. Results should be used as an adjunct to nosocomial control efforts to identify patients needing enhanced precautions. The test is not intended to identify patients with staphylococcal infections. Results should not be used to guide or monitor treatment for MRSA infections. Performed By: #### M RSANO #### [facility] [address] [place] [address] Store Sales Manager: Agustin Logan MD Specimen Description .NASAL SWAB Normal [facility] Comment on above: Performed By: #### M RSANO #### [facility] [address] [place] [address] Store Sales Manager: Agustin Logan MD Magnesiumon 02-14-2023 Magnesium [Mass/Vol] 2.0 mg/dL Normal 1.6-2.6 [facility] Comment on above: Performed By: #### B MP, MG, CDP #### [email or web address] [address] [place] [address] Store Sales Manager: Agustin Logan MD Magnesium [Mass/Vol] 2.0 mg/dL 1.6 - 2.6 mg/dL [facility] No Panel Informationon 02-14 No acute osseous abn ormality of the right knee and left ankle. [facility] EXAMINATION: THREE XRAY VIEWS OF THE [...] osseous lesion. No focal soft tissue abnormality. [facility] Sly Toscano MD - 02/14/2023 EXAMINATION: [...] of the right knee and left ankle. [facility] No acute bony abnorm alities are noted of the right hand and right elbow [facility] EXAMINATION: TWO XRAY VIEWS OF THE [...] well maintained. The soft tissues are unremarkable. [facility] Sly Toscano MD - 02/14/2023 EXAMINATION: [...] of the right hand and right elbow [facility] Radiology Study observation (narrative) [facility] Interpretation and review of laboratory results Abnormal [facility] No acute fracture de formity, collapse, or subluxation at the thoracic and lumbar spine. [facility] EXAMINATION: CT OF THE THORACIC SPINE [...] chest, abdomen, pelvis see the separate CT. [facility] Gerald Martinez MD - 02/14/2023 EXAMINATION: [...] subluxation at the thoracic and lumbar spine. [facility] Radiology Study observation (narrative) [facility] Phosphoruson 02-14-2023 Phosphate [Mass/Vol] 2.6 mg/dL 2.6 - 4.5 mg/dL [facility] Phosphorus, Inorg.on 023 Phosphorus, Inorg. 2.6 mg/dL Normal 2.6-4.5 [facility] Comment on above: Performed By: #### B MP, MG, CDP #### [facility] [address] [place] [address] Store Sales Manager: Agustin Logan MD TYPE AND SCREENon 02-14-2023 ABO and Rh group Nom (Bld) Blood group O Rh(D) negative [facility] Arm Band Number [id number] [facility] Blood group antibodies identified Nom Negative [facility] Expiration Date 02/17/2023,3799 [facility] Trauma Panelon 02-14-2023 Anion gap [Moles/Vol] 14 mmol/L 9 - 17 mmol/L [facility] aPTT Coag (Bld) [Time] 26.4 s [facility] Comment on above: IV Heparin Therapy Range: 66.0-92.0 sec Blood Bank Specimen BILL FOR SERVICES PERFORMED [facility] Carboxyhemoglobin (Bld) [Mass fraction] 1.1 % 0 - 5 % [facility] Comment on above: Reference Range: Non-Smokers 0-2% Average Smoker 2-4% Heavy Smoker <10% Chloride [Moles/Vol] 106 mmol/L 98 - 107 mmol/L [facility] CO2 [Moles/Vol] 18 mmol/L Low 20 - 31 mmol/L [facility] Creatinine [Mass/Vol] 0.45 mg/dL Low 0.50 - 0.90 mg/dL [facility] Erythrocyte distribution width (RBC) [Ratio] 13.7 % 11.8 - 14.4 % [facility] Ethanol percent 0.205 % High NINF - 0.010 % [facility] Ethanolamine [Mass/Vol] 205 mg/dL High NINF - 10 mg/dL [facility] GFR/1.73 sq M.predicted MDRD (S/P/Bld) [Vol rate/Area] 60 mL/min/{1.73_m2} Low - PINF [facility] Comment on above: These results are not [...] [Mass/Vol] 80 mg/dL 70 - 99 mg/dL [facility] HCG ( test) Ql Negative NEGATIVE [facility] Comment on above: Specimens with hCG l evels near the threshold of the test (25 mIU/mL) may give a negative or indeterminate result. In such cases, another test should be performed with a new specimen in 48-72 hours. If early is suspected clinically in this setting, correlation with quantitative serum b-hCG level is suggested. [facility] has confirmed the use of plasma for this test. This has not been cleared or approved by the U.S. Food and Drug Administration. The FDA has determined that such clearance is not necessary. HCO3 (Bld) [Moles/Vol] 22.1 mmol/L Low 24 - 30 mmol/L [facility] Hematocrit (Bld) [Volume fraction] 34.6 % Low 36.3 - 47.1 % [facility] Hemoglobin (Bld) [Mass/Vol] 11.1 g/dL Low 11.9 - 15.1 g/dL [facility] INR Coag (PPP) [Relative time] 1.1 {INR} [facility] Comment on above: Therapeutic Range: Moderate Anticoagulant Intensity: INR = 2.0-3.0 High Anticoagulant Intensity: INR = 2.5-3.5 Interpretation and review of laboratory results Abnormal [facility] MCH (RBC) [Entitic mass] 29.6 pg 25.2 - 33.5 pg [facility] MCHC (RBC) [Mass/Vol] 32.1 g/dL 28.4 - 34.8 g/dL [facility] MCV (RBC) [Entitic vol] 92.3 fL 82.6 - 102.9 fL [facility] Negative Base Excess, Nicola 3.5 mmol/L High 0.0 - 2.0 mmol/L [facility] Nucleated RBC/100 WBC (Bld) [Ratio] 0.0 % 0.0 per 100 WBC [facility] Oxygen saturation in Blood 63.9 % 60.0 - 85.0 % [facility] Oxygen/Inspired gas Respiratory system --on ventilator Unknown [facility] pCO2, Nicola 45.0 [facility] pH, Nicola 7.313 Low 7.320 - 7.420 [facility] Platelet mean volume (Bld) [Entitic vol] 10.0 fL 8.1 - 13.5 fL [facility] Platelets (Bld) [#/Vol] 234 10*3/uL [facility] pO2, Nicola 37.9 [facility] Potassium [Moles/Vol] 2.8 mmol/L Critically low 3.7 - 5.3 mmol/L [facility] PT Coag (PPP) [Time] 13.9 s [facility] RBC (Bld) [#/Vol] 3.75 10*6/uL Low 3.95 - 5.11 m/uL [facility] Sodium [Moles/Vol] 138 mmol/L 135 - 144 mmol/L [facility] Urea nitrogen [Mass/Vol] 8 mg/dL 6 - 20 mg/dL [facility] Comment on above: QA FLAGS AND/OR RANG ES MODIFIED BY DEMOGRAPHIC UPDATE ON 02/14 AT 0254 WBC other (Bld) [#/Vol] 6.9 [facility] Trauma Profileon 02-14-2023 Potassium [Moles/Vol] 2.8 mmol/L Critically low 3.7-5.3 [facility] Comment on above: Performed By: #### B MPX #### [facility] [address] [place] [address] 16345 Store Sales Manager: Agustin Logan MD Anion gap [Moles/Vol] 14 mmol/L Normal 9-17 [facility] Comment on above: Performed By: #### B MPX #### [facility] [address] [place] [address] 41137 Store Sales Manager: Agustin Logan MD Chloride [Moles/Vol] 106 mmol/L Normal 98-107 [facility] Comment on above: Performed By: #### B MPX #### [facility] [address] [place] [address] 28445 Store Sales Manager: Agustin Logan MD CO2 [Moles/Vol] 18 mmol/L Low 20-31 [facility] Comment on above: Performed By: #### B MPX #### [facility] [address] [place] [address] 69475 Store Sales Manager: Agustin Logan MD Creatinine [Mass/Vol] 0.45 mg/dL Low 0.50-0.90 [facility] Comment on above: Performed By: #### B MPX #### [facility] [address] [place] [address] 09073 Store Sales Manager: Agustin Logan MD Ethanol [Mass/Vol] 205 mg/dL High <10 [facility] Comment on above: Performed By: #### B MPX #### [facility] [address] [place] [address] 65952 Store Sales Manager: Agustin Logan MD Ethanol percent 0.205 % High <0.010 [facility] Comment on above: Performed By: #### B MPX #### [address] [address] Store Sales Manager: Agustin Logan MD GFR/1.73 sq M.predicted among non-blacks MDRD (S/P/Bld) [Vol rate/Area] 60 mL/min/{1.73_m2} Low >60 [facility] Comment on above: Result Comment: These results [...] secretion. Performed By: #### B MPX #### [facility] [address] [place] [address] 95597 Store Sales Manager: Agustin Logan MD Glucose [Mass/Vol] 80 mg/dL Normal 70-99 [facility] Comment on above: Performed By: #### B MPX #### [facility] [address] [place] [address] 39874 Store Sales Manager: Agustin Logan MD Sodium [Moles/Vol] 138 mmol/L Normal 135-144 [facility] Comment on above: Performed By: #### B MPX #### [facility] [address] [place] [address] 50078 Store Sales Manager: Agustin Logan MD Urea nitrogen [Mass/Vol] 8 mg/dL Normal 6-20 [facility] Comment on above: Result Comment: QA F LAGS AND/OR RANGES MODIFIED BY DEMOGRAPHIC UPDATE ON 02/14 AT 0254 Performed By: #### B MPX #### [address] [address] Store Sales Manager: Agustin Logan MD aPTT Coag (Bld) [Time] 26.4 s Normal 23.0-36.5 [facility] Comment on above: Result Comment: IV Heparin Therapy Range: 66.0-92.0 sec Performed By: #### B MPX #### [address] [address] Store Sales Manager: Agustin Logan MD INR Coag (PPP) [Relative time] 1.1 {INR} Normal [facility] Comment on above: Result Comment: Therapeutic Range: Moderate Anticoagulant Intensity: INR = 2.0-3.0 High Anticoagulant Intensity: INR = 2.5-3.5 Performed By: #### B MPX #### [address] [address] Store Sales Manager: Agustin Logan MD PT Coag (PPP) [Time] 13.9 s Normal 11.7-14.9 [facility] Comment on above: Performed By: #### B MPX #### [address] [address] Store Sales Manager: Agustin Logan MD HCG Screen, Blood Negative Normal NEG [facility] Comment on above: Result Comment: Spec imens with hCG levels near the threshold of the test (25 mIU/mL) may give a negative or indeterminate result. In such cases, another test should be performed with a new specimen in 48-72 hours. If early is suspected clinically in this setting, correlation with quantitative serum b-hCG level is suggested. [facility] has confirmed the use of plasma for this test. This has not been cleared or approved by the U.S. Food and Drug Administration. The FDA has determined that such clearance is not necessary. Performed By: #### B MPX #### [address] [phone] Store Sales Manager: Agustin Logan MD Body Temp. 37.0 Normal [facility] Comment on above: Performed By: #### B MPX #### [facility] [address] [place] [address] 77406 Store Sales Manager: Agustin Logan MD Carboxy Hgb 1.1 % Normal 0-5 [facility] Comment on above: Result Comment: Reference Range: Non-Smokers 0-2% Average Smoker 2-4% Heavy Smoker <10% Performed By: #### B MPX #### [facility] [address] [place] [address] 28692 Store Sales Manager: Agustin Logan MD FIO2 Unknown Normal [facility] Comment on above: Performed By: #### B MPX #### [facility] [address] [place] [address] 75873 Store Sales Manager: Agustin Logan MD HCO3 (Bld) [Moles/Vol] 22.1 mmol/L Low 24-30 [facility] Comment on above: Performed By: #### B MPX #### [address] [address] Store Sales Manager: Agustin Logan MD Negative Base Excess 3.5 mmol/L High 0.0-2.0 [facility] Comment on above: Performed By: #### B MPX #### [address] [address] Store Sales Manager: Agustin Logan MD Oxygen saturation in Blood 63.9 % Normal 60.0-85.0 [facility] Comment on above: Performed By: #### B MPX #### [address] [address] Store Sales Manager: Agustin Logan MD pCO2 45.0 mm Hg Normal 39-55 [facility] Comment on above: Performed By: #### B MPX #### [address] [address] Store Sales Manager: Agustin Logan MD pH (Bld) 7.313 [pH] Low 7.320-7.42 0 [facility] Comment on above: Performed By: #### B MPX #### [address] [address] Store Sales Manager: Agustin Logan MD pO2 37.9 mm Hg Normal 30-50 [facility] Comment on above: Performed By: #### B MPX #### [address] [address] Store Sales Manager: Agustin Logan MD Erythrocyte distribution width (RBC) [Ratio] 13.7 % Normal 11.8-14.4 [facility] Comment on above: Performed By: #### B MPX #### [address] [address] Store Sales Manager: Agustin Logan MD Hematocrit (Bld) [Volume fraction] 34.6 % Low 36.3-47.1 [facility] Comment on above: Performed By: #### B MPX #### [address] [address] Store Sales Manager: Agustin Logan MD Hemoglobin (Bld) [Mass/Vol] 11.1 g/dL Low 11.9-15.1 [facility] Comment on above: Performed By: #### B MPX #### [address] [address] Store Sales Manager: Agustin Logan MD MCH (RBC) [Entitic mass] 29.6 pg Normal 25.2-33.5 [facility] Comment on above: Performed By: #### B MPX #### [address] [address] Store Sales Manager: Agustin Logan MD MCHC (RBC) [Mass/Vol] 32.1 g/dL Normal 28.4-34.8 [facility] Comment on above: Performed By: #### B MPX #### [address] [address] Store Sales Manager: Agustin Logan MD MCV (RBC) [Entitic vol] 92.3 fL Normal 82.6-102.9 [facility] Comment on above: Performed By: #### B MPX #### [address] [address] Store Sales Manager: Agustin Logan MD NRBC Automated 0.0 per 100 WBC Normal 0.0 [facility] Comment on above: Performed By: #### B MPX #### [address] [address] Store Sales Manager: Agustin Logan MD Platelet mean volume (Bld) [Entitic vol] 10.0 fL Normal 8.1-13.5 [facility] Comment on above: Performed By: #### B MPX #### [address] [address] Store Sales Manager: Agusitn Logan MD Platelets (Bld) [#/Vol] 234 10*3/uL Normal 138-453 [facility] Comment on above: Performed By: #### B MPX #### [address] [address] Store Sales Manager: Agustin Logan MD RBC (Bld) [#/Vol] 3.75 10*6/uL Low 3.95-5.11 [facility] Comment on above: Performed By: #### B MPX #### [address] [address] Store Sales Manager: Agustin Logan MD WBC (Bld) [#/Vol] 6.9 10*3/uL Normal 3.5-11.3 [facility] Comment on above: Performed By: #### B MPX #### [facility] [address] [place] [address] Store Sales Manager: Agustin Logan MD Blood Bank BILL FOR SERVICES PERFORMED Normal [facility] Comment on above: Performed By: #### B MPX #### [facility] [address] [place], [place] [phone] Store Sales Manager: Agustin Logan MD Type + Screenon 02-14-2023 Type + Screen Sample Expiration 02/17/2023,2359 Arm Band Number [id number] ABO/Rh(D) O NEGATIVE Antibody Screen NEGATIVE Normal [facility] Comment on above: Performed By: #### B MP, MG, CDP #### [facility] [place] [address] Store Sales Manager: Agustin Logan MD Urinalysison 02-14-2023 Bilirubin Ql (U) Negative [facility]IVE [facility] Clarity (U) Clear Clear [facility] Color (U) Yellow Yellow [facility] Glucose Test strip (U) [Mass/Vol] Negative NEGATIVE [facility] Hemoglobin Auto test strip Ql (U) Negative NEGATIVE [facility] Interpretation and review of laboratory results Abnormal [facility] Ketones (U) [Mass/Vol] Negative NEGATIVE [facility] Leukocyte esterase Test strip Ql (U) Negative NEGATIVE [facility] Nitrite Ql (U) Negative NEGATIVE [facility] pH (U) 6.5 [pH] 5.0 - 8.0 [facility] Protein (U) [Mass/Vol] Negative NEGATIVE [facility] Specific gravity (U) [Rel density] 1.046 High 1.005 - 1.030 [facility] Urinalysis Comments Microscopic exam not performed based on chemical results unless requested in original order. [facility] Urobilinogen Qn (U) Normal Normal [facility] Urinalysis, Routineon 2022 Bilirubin, SemiQt,Ur Negative Normal NEG [facility] Comment on above: Performed By: #### U A #### [address] [address] Store Sales Manager: Agustin Logan MD Blood, Urine Negative Normal NEG [facility] Comment on above: Performed By: #### U A #### [address] [address] Store Sales Manager: Agustin Logan MD Clarity (U) Clear Normal CLEAR [facility] Comment on above: Performed By: #### U A #### [address] [address] Store Sales Manager: Agustin Logan MD Color (U) Yellow Normal YEL [facility] Comment on above: Performed By: #### U A #### [address] [address] Store Sales Manager: Agustin Logan MD Comment Microscopic exam not performed based on chemical results unless requested in Normal [facility] Comment on above: Result Comment: orig inal order. Performed By: #### U A #### [address] [address] Store Sales Manager: Agustin Logan MD Glucose Ql (U) Negative Normal NEG [facility] Comment on above: Performed By: #### U A #### [address] [address] Store Sales Manager: Agustin Logan MD Ketones Ql (U) Negative Normal NEG [facility] Comment on above: Performed By: #### U A #### [address] [address] Store Sales Manager: Agustin Logan MD Leukocyte esterase Test strip Ql (U) Negative Normal NEG [facility] Comment on above: Performed By: #### U A #### [address] [address] Store Sales Manager: Agustin Logan MD Nitrite,Ur Negative Normal NEG [facility] Comment on above: Performed By: #### U A #### [address] [address] Store Sales Manager: Agustin Logan MD PH,Ur 6.5 Normal 5.0-8.0 [facility] Comment on above: Performed By: #### U A #### [address] [address] Store Sales Manager: Agustin Logan MD Protein Ql (U) Negative Normal NEG [facility] Comment on above: Performed By: #### U A #### [address] [address] Store Sales Manager: Agustin Logan MD Spec. [place],Ur 1.046 High 1.005-1.03 0 [facility] Comment on above: Performed By: #### U A #### [address] [address] Store Sales Manager: Agustin Logan MD Urobilinogen,Ur Normal Normal NORM [facility] Comment on above: Performed By: #### U A #### [address] [address] Store Sales Manager: Agustin Logan MD XR ANKLE LEFT (MIN [...] Sly Toscano MD 02/14/23 Final result Normal [facility] XR CERVICAL SPINE FLEXION AN D EXTENSIONon [...] Sly Toscano MD 02/14/23 Final result Normal [facility] Limited range of mot ion suggesting paracervical spasm. No acute osseous abnormalities [facility] EXAMINATION: XRAY VIEWS OF THE CERVICAL [...] of prevertebral soft tissue edema or fracture. [facility] Sly Toscano MD - 02/14/2023 EXAMINATION: [...] suggesting paracervical spasm. No acute osseous abnormalities [facility] Radiology Study observation (narrative) [facility] XR CERVICAL SPINE FLEXION AN D EXTENSIONOrdered By: Sly Toscano on 02-14-2023 [facility] Work Phone: XR ELBOW RIGHT (2 VIEWS)on [...] Sly Toscano MD 02/14/23 Final result Normal [facility] XR HAND RIGHT (MIN 3 VIEWS)o n [...] Sly Toscano MD 02/14/23 Final result Normal [facility] XR KNEE RIGHT (1-2 VIEWS)on 02-14-2023 XR [...] Sly Toscano MD 02/14/23 Final result Normal [facility] COVID + FLU Quick Testingon 12-20-2022 SARS-CoV-2 (COVID-19) RNA MAXIM+probe Ql (Unsp spec) Negative [facility] Other COVID + FLU Quick Testing Positive [facility] Other COVID + FLU Quick Testing Negative [facility] Other Covid-19 PCR ([facility])on SARS-CoV-2 (COVID-19) RNA MAXIM+probe Ql (Unsp spec) Not detected Normal NOT DETECTED [facility] Comment on above: Result Comment: When [...] for this test is supported by the [place] of Health and Human Service's declaration that [...] used). Performed By: #### C VDTBH #### [facility] [address] [place] [address] Dr. Viv Dumont PREG HCG QUALon 09-26-2021 , QUAL Negative Normal NEGATIVE [facility] Comment on above: Performed By: #### P REG #### [facility] [address] [address] [address] Viv Dumont Covid-19 PCR ([facility])on SARS-CoV-2 (COVID-19) RNA MAXIM+probe Ql (Unsp spec) Not detected Normal NOT DETECTED [facility] Comment on above: Result Comment: This test is not yet approved or cleared by the [place] [place] FDA. When there are no FDA-approved or cleared tests available, and other criteria are met, FDA can make tests available under an emergency access mechanism called an Emergency Use Authorization (EUA). The EUA for this test is supported by the Machine Plate [employer] of Health and Human Service's (HHS's) declaration [...] Performed By: #### E JONATAN BRYAN #### [facility] [address] [place] [address] Cesilia Hernandez CBC AUTO DIFFon 09-18-2021 BASO # 0.0 103/ul Normal 0.0-0.1 [facility] Comment on above: Performed By: #### C BC #### [facility] [address] [place] [address] Dr. Viv Dumont Basophils/100 WBC (Bld) 0.2 % Normal 0.2-2.0 [facility] Comment on above: Performed By: #### C BC #### [facility] [address] [place] [address] Dr. Viv Dumont EO # 0.1 103/ul Normal 0.0-0.7 [facility] Comment on above: Performed By: #### C BC #### [facility] [address] [place] [address] Dr. Viv Dumont Eosinophils/100 WBC (Bld) 2.2 % Normal 0.9-7.0 [facility] Comment on above: Performed By: #### C BC #### [facility] [address] [place] [address] Dr. Viv Dumont Erythrocyte distribution width (RBC) [Ratio] 13.9 % Normal 11.0-15.0 [facility] Comment on above: Performed By: #### C BC #### [facility] [address] [place] [address] Dr. Viv Dumont Hematocrit (Bld) [Volume fraction] 36.1 % Normal 36.0-48.0 [facility] Comment on above: Performed By: #### C BC #### [facility] [address] [place] [address] Dr. Viv Dumont Hemoglobin (Bld) [Mass/Vol] 11.8 g/dL Critically low 12.0-16.0 [facility] Comment on above: Performed By: #### C BC #### [facility] [address] [place] [address] Dr. Viv Dumont IG # 0.01 10e3/ul Normal 0.00-0.03 [facility] Comment on above: Performed By: #### C BC #### [facility] [address] [place] [address] Dr. Viv Dumont IG % 0.2 % Normal 0.0-0.5 [facility] Comment on above: Performed By: #### C BC #### [facility] [address] [place] [address] Dr. Viv Dumont LYMPH # 2.0 103/ul Normal 1.2-3.8 [facility] Comment on above: Performed By: #### C BC #### [facility] [address] [place] [address] Dr. Viv Dumont Lymphocytes/100 WBC (Bld) 30.9 % Normal 20.5-60.0 [facility] Comment on above: Performed By: #### C BC #### [facility] [address] [place] [address] Dr. Viv Dumont MANUAL DIFF REQ NO Normal [facility] Comment on above: Performed By: #### C BC #### [facility] [address] [address] [address] Viv Dumont MCH (RBC) [Entitic mass] 28.9 pg Normal 26.7-34.0 [facility] Comment on above: Performed By: #### C BC #### [facility] [address] [place] [address] Dr. Viv Dumont MCHC (RBC) [Mass/Vol] 32.7 g/dL Normal 29.9-35.2 [facility] Comment on above: Performed By: #### C BC #### [facility] [address] [place] [address] Dr. Viv Dumont MCV (RBC) [Entitic vol] 88.3 fL Normal 81.0-99.0 [facility] Comment on above: Performed By: #### C BC #### [facility] [address] [place] [address] Dr. Viv Dumont MONO # 0.4 103/ul Normal 0.3-0.8 [facility] Comment on above: Performed By: #### C BC #### [facility] [address] [place] [address] Dr. Viv Dumont Monocytes/100 WBC (Bld) 6.1 % Normal 1.7-12.0 [facility] Comment on above: Performed By: #### C BC #### [facility] [address] [place] [address] Dr. Viv Dumont NEUT # 3.9 103/ul Normal 1.4-6.5 [facility] Comment on above: Performed By: #### C BC #### [facility] [address] [place] [address] Dr. Viv Dumont Neutrophils/100 WBC (Bld) 60.4 % Normal 43.0-75.0 [facility] Comment on above: Performed By: #### C BC #### [facility] [address] [place] [address] Dr. Viv Dumont Platelet mean volume (Bld) [Entitic vol] 9.7 fL Normal 9.5-13.5 [facility] Comment on above: Performed By: #### C BC #### [facility] [address] [address] [address] Viv Dumont PLT 287 103/ul Normal 150-450 [facility] Comment on above: Performed By: #### C BC #### [facility] [address] [address] [address] Viv Dumont RBC 4.09 106/ul Critically low 4.20-5.40 [facility] Comment on above: Performed By: #### C BC #### [facility] [address] [address] [address] Viv Dumont WBC 6.4 103/ul Normal 4.0-11.0 [facility] Comment on above: Performed By: #### C BC #### [facility] [address] [place] [address] Dr. Viv Dumont PAP ACOG PANEL 2: 30 to 65on 08-25-2021 . . Normal [facility] Comment on above: Result Comment: Perf ormed at: WB Performed By: #### [id number] #### [facility] [address] [place] [address] Dr. Viv Dumont Age Gdln ACOG Testing 30-65 Normal [facility] Comment on above: Performed By: #### [id number] #### [facility] [address] [place] [address] Dr. Viv Dumont DIAGNOSIS: Comment Normal [facility] Comment on above: Result Comment: NEGA TIVE FOR INTRAEPITHELIAL LESION OR MALIGNANCY. Performed at: WB Performed By: #### [id number] #### [facility] [address] [address] [address] Viv Dumont HPV Aptima Negative Normal Negative [facility] Comment on above: Result Comment: This nucleic acid amplification test detects fourteen high-risk HPV types (16,18,31,33,35,39,45,51,52,56,58,59,66,68) without differentiation. Performed at: =G Performed By: #### [id number] #### [facility] [address] [place] [address] Dr. Viv Dumont Methodology: Comment Normal [facility] Comment on above: Result Comment: This liquid based ThinPrep(R) pap test was screened with the use of an image guided system. Performed at: WB Performed By: #### [id number] #### [facility] [address] [place] [address] Dr. Viv Dumont Note: Comment Normal [facility] Comment on above: Result Comment: The Pap smear is a screening test designed to aid in the detection of premalignant and malignant conditions of the uterine cervix. It is not a diagnostic procedure and should not be used as the sole means of detecting cervical cancer. Both false-positive and false-negative reports do occur. . Performed at: WB Performed By: #### [id number] #### [facility] [address] [place] [address] Dr. Viv Dumont Performed by: Comment Normal [facility] Comment on above: Result Comment: Siddhartha Renee, Supervisor Of Guidance And Testing (ASCP) Performed at: WB Performed By: #### [id number] #### [facility] [address] [place] [address] Dr. Viv Dumont Specimen adequacy: Comment Normal [facility] Comment on above: Result Comment: Sati sfactory for evaluation. Endocervical and/or squamous metaplastic cells (endocervical component) are present. Performed at: WB Performed By: #### [id number] #### [facility] [address] [place] [address] Dr. Viv Dumont PREG QUANT HCGon 07-21-2021 HCG QUANT <1 [facility] Comment on above: Performed By: #### P REGQNT #### [facility] [address] [place] [address] Dr. Viv Dumont HCG RANGE SEE BELOW [facility] Comment on above: Result Comment: 5-50 0-1 WEEK 40-300 1-2 WEEKS 100-1,000 2-3 WEEKS 500-6,000 3-4 WEEKS 5,000-200,000 1-2 MONTHS 10,000-100,000 2-3 MONTHS 3,000-50,000 2ND TRIMESTER 1,000-50,000 3RD TRIMESTER Performed By: #### P REGQNT #### [facility] [id number] Viv Dumont US PELVIS AND TRANSVAGon [...] by: CRISS MORALES Date: 2021-04-25 10:42 Normal [facility] RHOGAMon 04-23-2021 RHOGAM Status Information I ssued Quantity 1 Product ID Rh Immune Globulin Lot Number [id number] Issue Date/Time [id number] Normal [facility] Comment on above: Performed By: #### E JONATAN BRYAN #### [facility] [address] [place], [place] [id number] Cesilia Hernandez ABO AND RH TYPEon 04-21-2021 ABO and Rh group Nom (Bld) ABO Rh Typing O Rh Negative Normal [facility] Comment on above: Performed By: #### E JONATAN BRYAN #### [facility] [address] [place] [id number] Cesilia Hernandez PREG QUANT HCGon 04-14-2021 HCG QUANT 431 mIU/mL Normal [facility] Comment on above: Performed By: #### P REGQNT #### [facility] [address] [place], [place] [address] Cesilia Mary HCG RANGE SEE BELOW Normal [facility] Comment on above: Result Comment: 5-50 0-1 WEEK 40-300 1-2 WEEKS 100-1,000 2-3 WEEKS 500-6,000 3-4 WEEKS 5,000-200,000 1-2 MONTHS 10,000-100,000 2-3 MONTHS 3,000-50,000 2ND TRIMESTER 1,000-50,000 3RD TRIMESTER Performed By: #### P REGQNT #### [facility] [address] [place] [address] Cesilia Mary PREG QUANT HCGon 04-10-2021 HCG QUANT 1426 mIU/mL Normal [facility] Comment on above: Performed By: #### P REGQNT #### [facility] [address] [place] [address] Cesilia Mary HCG RANGE SEE BELOW Normal [facility] Comment on above: Result Comment: 5-50 0-1 WEEK 40-300 1-2 WEEKS 100-1,000 2-3 WEEKS 500-6,000 3-4 WEEKS 5,000-200,000 1-2 MONTHS 10,000-100,000 2-3 MONTHS 3,000-50,000 2ND TRIMESTER 1,000-50,000 3RD TRIMESTER Performed By: #### P REGQNT #### [facility] [address] [place] [address] Cesilia Mary CBC AUTO DIFFon 03-19-2021 BASO # 0.0 103/ul Normal 0.0-0.1 [facility] Comment on above: Performed By: #### C BC #### [facility] [address] [place], [place] [address] Cesilia Mary Basophils/100 WBC (Bld) 0.3 % Normal 0.2-2.0 [facility] Comment on above: Performed By: #### C BC #### [facility] [address] [place] [address] Cesilia Mary EO # 0.1 103/ul Normal 0.0-0.7 [facility] Comment on above: Performed By: #### C BC #### [facility] [address] [place], [place] [address] Cesilia Mary Eosinophils/100 WBC (Bld) 1.9 % Normal 0.9-7.0 [facility] Comment on above: Performed By: #### C BC #### [facility] [address] [place] [address] Cesilia Mary Erythrocyte distribution width (RBC) [Ratio] 14.3 % Normal 11.0-15.0 [facility] Comment on above: Performed By: #### C BC #### [facility] [address] [place] [address] Cesilia Mary Hematocrit (Bld) [Volume fraction] 38.5 % Normal 36.0-48.0 [facility] Comment on above: Performed By: #### C BC #### [facility] [address] [place] [address] Cesilia Mary Hemoglobin (Bld) [Mass/Vol] 12.4 g/dL Normal 12.0-16.0 [facility] Comment on above: Performed By: #### C BC #### [facility] [address] [place] [address] Cesilia Mary IG # 0.00 10e3/ul Normal 0.00-0.03 [facility] Comment on above: Performed By: #### C BC #### [facility] [address] [place] [address] Cesilia Mary IG % 0.3 % Normal 0.0-0.5 [facility] Comment on above: Performed By: #### C BC #### [facility] [address] [place] [address] Cesilia Mary LYMPH # 2.0 103/ul Normal 1.2-3.8 [facility] Comment on above: Performed By: #### C BC #### [facility] [address] [place] [address] Cesilia Mary Lymphocytes/100 WBC (Bld) 25.9 % Normal 20.5-60.0 [facility] Comment on above: Performed By: #### C BC #### [facility] [address] [place], [place] [id number] Cesilia Mary MANUAL DIFF REQ NO Normal [facility] Comment on above: Performed By: #### C BC #### [facility] [address] [place], [place] [address] Cesiliakathie Hernandez MCH (RBC) [Entitic mass] 28.4 pg Normal 26.7-34.0 [facility] Comment on above: Performed By: #### C BC #### [facility] [address] [place] [address] Cesiliakathie Hernandez MCHC (RBC) [Mass/Vol] 32.2 g/dL Normal 29.9-35.2 [facility] Comment on above: Performed By: #### C BC #### [facility] [address] [place] [address] Cesilia Mary MCV (RBC) [Entitic vol] 88.3 fL Normal 81.0-99.0 [facility] Comment on above: Performed By: #### C BC #### [facility] [address] [place] [address] Cesilia Mary MONO # 0.4 103/ul Normal 0.3-0.8 [facility] Comment on above: Performed By: #### C BC #### [facility] [address] [place] [address] Cesilia Mary Monocytes/100 WBC (Bld) 5.9 % Normal 1.7-12.0 [facility] Comment on above: Performed By: #### C BC #### [facility] [address] [place] [address] Cesilia Mary NEUT # 5.2 103/ul Normal 1.4-6.5 [facility] Comment on above: Performed By: #### C BC #### [facility] [address] [place], [place] [address] Cesilia Mary Neutrophils/100 WBC (Bld) 65.7 % Normal 43.0-75.0 [facility] Comment on above: Performed By: #### C BC #### [facility] [address] [place], [place] [address] Cesilia Mary Platelet mean volume (Bld) [Entitic vol] 9.9 fL Normal 9.5-13.5 [facility] Comment on above: Performed By: #### C BC #### [facility] [address] [place] [address] Cesilia Hernandez PLT 282 103/ul Normal 150-450 [facility] Comment on above: Performed By: #### C BC #### [facility] [address] [place] [address] Cesilia Hernandez RBC 4.36 106/ul Normal 4.20-5.40 [facility] Comment on above: Performed By: #### C BC #### [facility] [address] [place] [address] Cesiliakathie Hernandez WBC 7.9 103/ul Normal 4.0-11.0 [facility] Comment on above: Performed By: #### C BC #### [facility] [address] [place] [address] Cesilia Hernandez ER URINE PROFILEon 1 Bilirubin Ql (U) Negative Normal NEGATIVE [facility] Comment on above: Performed By: #### CHEMA CORONADOICRO #### [facility] [address] [place] [address] Cesiliakathie Hernandez Clarity (U) CLEAR Normal CLEAR [facility] Comment on above: Performed By: #### Zion BRYAN UMICRO #### [facility] [address] [place] [address] Cesilia Mary Color (U) YELLOW Normal YELLOW [facility] Comment on above: Performed By: #### Zion BRYAN UMICRO #### [facility] [address] [place], [place] [address] Cesilia Mary ERUAHD A micrscopic examina tion will be performed if indicated. Normal [facility] Comment on above: Performed By: #### CHEMA CORONADOICRO #### [facility] [address] [place] [address] Cesilia Mary Glucose Ql (U) Negative Normal NEGATIVE [facility] Comment on above: Performed By: #### JONATAN CORONADO #### [facility] [address] [place] [address] Cesilia Mary Hemoglobin Ql (U) TRACE-INTACT Abnormal NEGATIVE [facility] Comment on above: Performed By: #### JONATAN CORONADO #### [facility] [address] [place] [address] Cesilia Mary Ketones Ql (U) Negative Normal NEGATIVE [facility] Comment on above: Performed By: #### JONATAN CORONADO #### [facility] [address] [place] [address] Cesilia Mary LEUKOCYTES Negative Normal NEGATIVE [facility] Comment on above: Performed By: #### JONATAN CORONADO #### [facility] [address] [place] [address] Cesilia Mary Nitrite Ql (U) Negative Normal NEGATIVE [facility] Comment on above: Performed By: #### JONATAN CORONADO #### [facility] [address] [place] [address] Cesilia Mary pH (U) 6.0 [pH] Normal 5-9 [facility] Comment on above: Performed By: #### JONATAN CORONADO #### [facility] [address] [place] [address] Cesilia Mary SPEC GRAVITY 1.020 Normal 1.005-<=1. 025 [facility] Comment on above: Performed By: #### JONATAN CORONADO #### [facility] [address] [place] [address] Cesilia Mary UA PROTEIN Negative Normal NEGATIVE/ TRACE [facility] Comment on above: Performed By: #### JONATAN CORONADO #### [facility] [address] [place], [place] [address] Cesilia Mary UR MICRO IND INDICATED Normal [facility] Comment on above: Performed By: #### JONATAN CORONADO #### [facility] [address] [place] [address] Cesilia Mary Urobilinogen Qn (U) 0.2 {Yefri'U}/dL Normal 0.2 - 1. 0 [facility] Comment on above: Performed By: #### JONATAN CORONADO #### [facility] [address] [place], [place] [address] Cesilia Mary PROF 14(COMP METB)on 021 Albumin [Mass/Vol] 3.8 g/dL Normal 3.5-5.0 [facility] Comment on above: Performed By: #### JONATAN CORONADO #### [facility] [address] [place] [address] Cesilia Mary Albumin/Globulin [Mass ratio] 0.9 {ratio} Normal [facility] Comment on above: Performed By: #### JONATAN CORONADO #### [facility] [address] [place] [address] Cesilia Mary ALP [Catalytic activity/Vol] 60 U/L Normal 38-126 [facility] Comment on above: Performed By: #### JONATAN CORONADO #### [facility] [address] [place] [address] Cesilia Mary ALT [Catalytic activity/Vol] 21 U/L Normal 9-52 [facility] Comment on above: Performed By: #### JONATAN CORONADO #### [facility] [address] [place] [address] Cesilia Mary Anion gap [Moles/Vol] 11.8 mmol/L Normal [facility] Comment on above: Performed By: #### JONATAN CORONADO #### [facility] [address] [place] [address] Cesilia Mary AST [Catalytic activity/Vol] 14 U/L Normal 14-36 [facility] Comment on above: Performed By: #### JONATAN CORONADO #### [facility] [address] [place], [place] [address] Cesilia Mary Bilirubin [Mass/Vol] 0.2 mg/dL Normal 0.2-1.3 [facility] Comment on above: Performed By: #### JONATAN CORONADO #### [facility] [address] [address] Cesilia Mary Calcium [Mass/Vol] 9.2 mg/dL Normal 8.4-10.2 [facility] Comment on above: Performed By: #### JONATAN CORONADO #### [facility] [address] [place] [address] Cesilia Amry Chloride [Moles/Vol] 103 mmol/L Normal 98-107 [facility] Comment on above: Performed By: #### JONATAN CORONADO #### [facility] [address] [place] [address] Cesilia Mary CO2 [Moles/Vol] 28.0 mmol/L Normal 22.0-30.0 [facility] Comment on above: Performed By: #### JONATAN CORONADO #### [facility] [address] [place] [address] Cesilia Mary Creatinine [Mass/Vol] 0.79 mg/dL Normal 0.52-1.04 [facility] Comment on above: Performed By: #### JONATAN CORONADO #### [facility] [address] [place] [address] Cesilia Mary EGFR-AF ANDORRAN >60 Normal >=60 [facility] Comment on above: Performed By: #### JONATAN CORONADO #### [facility] [address] [place] [address] Cesilia Mary EGFR-NON AF ANDORRAN >60 Normal >=60 [facility] Comment on above: Performed By: #### JONATAN CORONADO #### [facility] [address] [place] [address] Cesilia Mary Globulin (S) [Mass/Vol] 4.1 g/dL Normal [facility] Comment on above: Performed By: #### JONATAN CORONADO #### [facility] [address] [place] [address] Cesilia Mary Glucose [Mass/Vol] 79 mg/dL Normal 74-106 [facility] Comment on above: Performed By: #### JONATAN CORONADO #### [facility] [address] [address] Cesilia Mary Potassium [Moles/Vol] 3.8 mmol/L Normal 3.4-5.0 [facility] Comment on above: Performed By: #### JONATAN CORONADO #### [facility] [address] [place], [place] [address] Cesilia Mary Protein [Mass/Vol] 7.9 g/dL Normal 6.1-8.2 [facility] Comment on above: Performed By: #### JO CORONADORO #### [facility] [address] [place], [place] [address] Cesilia Mary Sodium [Moles/Vol] 139 mmol/L Normal 137-145 [facility] Comment on above: Performed By: #### JONATAN CORONADO #### [facility] [address] [place] [address] Cesilia Mary Urea nitrogen [Mass/Vol] 12.0 mg/dL Normal 7.0-17.0 [facility] Comment on above: Performed By: #### JONATAN CORONADO #### [facility] [address] [place], [place] [address] Cesilia Mary Urea nitrogen/Creatinine [Mass ratio] 15.2 mg/mg Normal [facility] Comment on above: Performed By: #### JONATAN CORONADO #### [facility] [address] [place], [place] [id number] Cesilia Mary URINE MICROSCOPIC ONLYon BACTERIA NONE SEEN Normal NONE SEEN [facility] Comment on above: Performed By: #### JONATAN CORONADO #### [facility] [address] [place], [place] [id number] Cesilia Mary Bacteria identified Cx Nom (U) NOT INDICATED Normal [facility] Comment on above: Performed By: #### JO CORONADORO #### [facility] [address] [place], [place] [id number] Cesilia Mary CAST NONE SEEN Normal NONE SEEN [facility] Comment on above: Performed By: #### JONATAN CORONADO #### [facility] [address] [address] Cesilia Mary Crystals LM Nom (Urine sed) NONE SEEN Normal NONE SEEN [facility] Comment on above: Performed By: #### JO CORONADORO #### [facility] [address] [place] [address] Cesilia Mary Epithelial cells LM Ql (Urine sed) FEW Abnormal NONE SEEN /RARE [facility] Comment on above: Performed By: #### JO CORONADORO #### [facility] [address] [place] [address] Cesilia Mary MUCOUS NONE SEEN Normal NONE SEEN [facility] Comment on above: Performed By: #### JO CORONADORO #### [facility] [address] [place] [address] Cesilia Mary RBC 0-2 Normal 0-2 [facility] Comment on above: Performed By: #### JONATAN CORONADO #### [facility] [address] [place] [address] Cesilia Mary WBC NONE SEEN Normal NONE SEEN [facility] Comment on above: Performed By: #### JO CORONADORO #### [facility] [address] [place] [address] Cesilia Mary US PREG TVon 03-19-2021 US [...] by: CHRISTINA BURRIS Date: 2021-03-19 04:29 [facility] ([facility]) ----FELISA JONES ([id number]) 1985 FDate Time Provider Department10/29/17 2:30 PM EITAN LEWIS During your visit today, we recorded the following information about you: Pulse Respiration Blood pressure Weight 83/minute 18/minute 126/71 68.9 kg Height 1.702 Riley Lewis MD 10/29/2017 3:30 [facility] Department of Cardiovascular MedicineOUTPATIENT VISIT DATE 10/29/17OUTPATIENT VISIT TYPENEWPRIMARY CARE PHYSICIAN:Valdemar Mcclendon, DO[address] [facility] [id number]: [phone]: [phone] COMPLAINT:Patient presents with:Chest PainPalpitationsHISTORY OF PRESENT ILLNESS:Felisa [...] her family stressors with her fatherbeing in penitentiary. The patient works at the local [employer]. She is looking forward to learning how [...] kg (152 lb) SpO2 100% BMI 23.81 kg/f2Xmgsola: Well appearing, in no acute distress.Eyes: Conjunctiva [...] 10/15/2017 reveals a white count of 6.5, ksdfgylwaw16.6, hematocrit 36.7, platelets 253, sodium 136, potassium [...] via U.S. Mail.This document was generated utilizing TensorCommation. I have reviewed andverified that the contents of the document are accurate with the exception ofminor grammatical, spelling and punctuation errors.CONTACT INFORMATION:Thank you for allowing us to participate in the care of this very pleasantpatient. Please free to contact us if we can be of any further assistance.Eitan Lewis MD, FACCRlogan memorial hospitalt and Callie ParadaDepartment of Cardiovascular MedicineOhiohealth Grant Medical Centerrt and Vascular InstituteRebecca [address] [address] [facility].[place], [place] [address]Yiyrws: [phone] Referring Provider: VALDEMAR MCCLENDON [[id number]]Allergies As of Date: 10/29/2017(No Known Allergies)Date Reviewed: 10/29/2017Reviewed by: Eitan Lewis - Fully AssessedReason for Visit: Chest Pain [21] Palpitations [79]Primary Visit Diagnosis:Vasovagal syncope [R55] Other Visit Diagnoses:PVC (premature ventricular contraction) [I49.3] Ventricular trigeminy [I49.8]Order(s):EXERCISE STRESS WO IMAGING [[id number]] Order #: [id number]: 1 FUTUREPrescriptions as of 10/29/2017 Sig: BUPROPION [...] Status:Closed by ELADIO LEWIS MD on 10/29/17 [facility] PROGRESSon 10-29-2017 PROGRESS HNO ID: [id number] thor: Eitan Vanegaservice: (none)Author Type: PhysicianType: Progress NotesFiled: 10/29/2017 3:30 PMNote Text:Heart and Vascular InstituteErath and Callie Parada Department of Cardiovascular MedicineOUTPATIENT VISIT DATE 10/29/17OUTPATIENT VISIT TYPENEWPRIMARY CARE PHYSICIAN:Valdemar Mcclendon, DO[address] [facility] [address]Abwfg: [phone]: [phone] COMPLAINT:Patient presents with:Chest PainPalpitationsHISTORY OF PRESENT ILLNESS:Felisa [...] her family stressors with her father beingin penitentiary. The patient works at the local [employer] facility. She is looking forward to learning how [...] kg (152 lb) SpO2 100% BMI 23.81 kg/j4Rhyxjen: Well appearing, in no acute distress.Eyes: Conjunctiva [...] physicianvia U.S. Mail.This document was generated utilizing Vimodion dictation. I have reviewedand verified that the contents of the document are accurate with theexception of minor grammatical, spelling and punctuation errors.CONTACT INFORMATION:Thank you for allowing us to participate in the care of this very pleasantpatient. Please free to contact us if we can be of any furtherassistance.Eitan Lewis MD, FACCRobert and Callie Markpartmercy of Cardiovascular MedicineOhiohealth Grant Medical Centerrt and Vascular InstituteRebecca V[place] [address], [place] [address]Jxgngm: [phone] Normal [facility] Vital Signs Date Time Vital Sign Value Performing Clinician Facility 11-09-2024 12:13-0400 Body height 170.18 cm [facility] 11-09-2024 12:13-0400 Body mass index (BMI) [Ratio] 25.45 kg/m2 [facility] 11-09-2024 12:13-0400 Body surface area Derived from formula 1.87 m2 [facility] 11-09-2024 12:13-0400 Body weight 73.71 kg [facility] 11-09-2024 12:13-0400 Diastolic blood pressure 74 mm[Hg] [facility] 11-09-2024 12:13-0400 Heart rate 76 /min [facility] 11-09-2024 12:13-0400 Systolic blood pressure 122 mm[Hg] [facility] 08-01-2024 08:48-0500 Blood Pressure Location Valdemar CHLOEALICIA [facility] 08-01-2024 08:48-0500 Body temperature 97.7 [degF] Valdemar KAPLE [facility] 08-01-2024 08:48-0500 Diastolic blood pressure 68 mm[Hg] Valdemar KAPLE [facility] 08-01-2024 08:48-0500 Heart rate 73 /min Valdemar KAPLE [facility] 08-01-2024 08:48-0500 Respiratory rate 16 /min Valdemar CORONALE [facility] 08-01-2024 08:48-0500 SaO2% (BldA) [Mass fraction] 99 % Valdemar KAPLE [facility] 08-01-2024 08:48-0500 Systolic blood pressure 110 mm[Hg] Valdemar KAPLE [facility] 05-02-2024 10:31-0400 Blood Pressure Location Valdemar KAPLE [facility] 05-02-2024 10:31-0400 Body temperature 97.88 [degF] Valdemar KAPLE [facility] 05-02-2024 10:31-0400 Diastolic blood pressure 68 mm[Hg] Valdemar KAPLE [facility] 05-02-2024 10:31-0400 Heart rate 71 /min Valdemar KAPLE [facility] 05-02-2024 10:31-0400 Respiratory rate 16 /min Valdemar KAPLE [facility] 05-02-2024 10:31-0400 SaO2% (BldA) [Mass fraction] 98 % Valdemar KAPLE [facility] 05-02-2024 10:31-0400 Systolic blood pressure 112 mm[Hg] Valdemar KAPLE [facility] 01-21-2024 08:53-0400 Blood Pressure Location Valdemar KAPLE [facility] 01-21-2024 08:53-0400 Body temperature 97.88 [degF] Valdemar KAPLE [facility] 01-21-2024 08:53-0400 Diastolic blood pressure 80 mm[Hg] Valdemar KAPLE [facility] 01-21-2024 08:53-0400 Heart rate 82 /min Valdemar KAPLE [facility] 01-21-2024 08:53-0400 SaO2% (BldA) [Mass fraction] 98 % Valdemar KAPLE [facility] 01-21-2024 08:53-0400 Systolic blood pressure 114 mm[Hg] Valdemar KAPLE [facility] 11-26-2023 08:08-0400 Blood Pressure Location Valdemar KAPLE [facility] 11-26-2023 08:08-0400 Body temperature 98.06 [degF] Valdmear KAPLE [facility] 11-26-2023 08:08-0400 Diastolic blood pressure 68 mm[Hg] Valdemar KAPLE [facility] 11-26-2023 08:08-0400 Heart rate 72 /min Valdemar KAPLE [facility] 11-26-2023 08:08-0400 Respiratory rate 16 /min Valdemar KAPLE [facility] 11-26-2023 08:08-0400 SaO2% (BldA) [Mass fraction] 99 % Valdemar KAPLE [facility] 11-26-2023 08:08-0400 Systolic blood pressure 112 mm[Hg] Valdemar KAPLE [facility] 10-14-2023 08:55-0500 Blood Pressure Location Valdemar KAPLE [facility] 10-14-2023 08:55-0500 Body temperature 98.06 [degF] Valdemar KAPLE [facility] 10-14-2023 08:55-0500 Diastolic blood pressure 70 mm[Hg] Valdemar KAPLE [facility] 10-14-2023 08:55-0500 Heart rate 85 /min Valdemar KAPLE [facility] 10-14-2023 08:55-0500 Respiratory rate 18 /min Valdemar KAPLE [facility] 10-14-2023 08:55-0500 SaO2% (BldA) [Mass fraction] 97 % Valdemar KAPLE [facility] 10-14-2023 08:55-0500 Systolic blood pressure 112 mm[Hg] Valdemar KAPLE [facility] 07-09-2023 13:20-0500 Blood Pressure Location Valdemar KAPLE [facility] 07-09-2023 13:20-0500 Body temperature 98.6 [degF] Valdemar KAPLE [facility] 07-09-2023 13:20-0500 Diastolic blood pressure 70 mm[Hg] Valdemar KAPLE [facility] 07-09-2023 13:20-0500 Heart rate 68 /min Valdemar KAPLE [facility] 07-09-2023 13:20-0500 Respiratory rate 18 /min Valdemar KAPLE [facility] 07-09-2023 13:20-0500 SaO2% (BldA) [Mass fraction] 99 % Valdemar KAPLE [facility] 07-09-2023 13:20-0500 Systolic blood pressure 118 mm[Hg] Valdemar KAPLE [facility] 04-15-2023 12:15-0400 Body temperature 98.6 [degF] [facility] 04-15-2023 12:15-0400 Diastolic blood pressure 76 mm[Hg] [facility] 04-15-2023 12:15-0400 Heart rate 78 /min [facility] 04-15-2023 12:15-0400 Respiratory rate 18 /min [facility] 04-15-2023 12:15-0400 SaO2% (BldA) [Mass fraction] 97 % [facility] 04-15-2023 12:15-0400 Systolic blood pressure 134 mm[Hg] [facility] 04-15-2023 11:08-0400 Blood Pressure Location Valdemar KAPLE [facility] 04-15-2023 11:08-0400 Body temperature 98.06 [degF] Valdemar KAPLE [facility] 04-15-2023 11:08-0400 Diastolic blood pressure 78 mm[Hg] Valdemar KAPLE [facility] 04-15-2023 11:08-0400 Heart rate 77 /min Valdemar KAPLE [facility] 04-15-2023 11:08-0400 Respiratory rate 16 /min Valdemar KAPLE [facility] 04-15-2023 11:08-0400 SaO2% (BldA) [Mass fraction] 98 % Valdemar KAPLE [facility] 04-15-2023 11:08-0400 Systolic blood pressure 124 mm[Hg] Valdemar KAPLE [facility] 04-08-2023 07:59-0400 Body temperature 98.06 [degF] Joseph Thompson [facility] 04-08-2023 07:59-0400 Diastolic blood pressure 59 mm[Hg] Joseph Jay [facility] 04-08-2023 07:59-0400 Heart rate 77 /min Joseph Jay [facility] 04-08-2023 07:59-0400 Respiratory rate 16 /min Joseph Jay [facility] 04-08-2023 07:59-0400 SaO2% (BldA) [Mass fraction] 97 % Joseph [facility] 04-08-2023 07:59-0400 Systolic blood pressure 146 mm[Hg] Joseph Jay [facility] 04-08-2023 07:44-0400 Body temperature 98.06 [degF] Joseph [facility] 04-08-2023 07:44-0400 Diastolic blood pressure 68 mm[Hg] Joseph [facility] 04-08-2023 07:44-0400 Heart rate 81 /min [facility] 04-08-2023 07:44-0400 Respiratory rate 16 /min Joseph Jay [facility] 04-08-2023 07:44-0400 SaO2% (BldA) [Mass fraction] 97 % [facility] 04-08-2023 07:44-0400 Systolic blood pressure 133 mm[Hg] [facility] 03-10-2023 17:29-0400 Diastolic blood pressure 62 mm[Hg] Anyi Ghosh MD Work Phone: [facility] 03-10-2023 17:29-0400 Heart rate 66 /min Anyi Ghosh MD Work Phone: [facility] 03-10-2023 17:29-0400 Respiratory rate 15 /min Anyi Ghosh MD Work Phone: [facility] [employer] 03-10-2023 17:29-0400 SaO2% (BldA) [Mass fraction] 98 % Anyi Ghosh MD Work Phone: [facility] 03-10-2023 17:29-0400 Systolic blood pressure 108 mm[Hg] Anyi Ghosh MD Work Phone: [facility] 03-10-2023 07:55-0400 Body temperature 97.3 [degF] Anyi Ghosh MD Work Phone: [facility] [employer] 03-09-2023 22:17-0400 Body height 167.6 cm Anyi Ghosh MD Work Phone: [facility] 03-09-2023 22:17-0400 Body mass index (BMI) [Ratio] 25.5 kg/m2 Anyi Ghosh MD Work Phone: [facility] 03-09-2023 22:17-0400 Body weight 71.67 kg Anyi Ghosh MD Work Phone: [facility] 02-22-2023 07:30-0400 Body temperature 98.01 [degF] Carlos Castellanosley DO Work Phone: [facility] 02-22-2023 07:30-0400 Diastolic blood pressure 64 mm[Hg] Carlos Castellanosley DO Work Phone: [facility] 02-22-2023 07:30-0400 Heart rate 65 /min Carlos Melendez DO Work Phone: [facility] 02-22-2023 07:30-0400 SaO2% (BldA) [Mass fraction] 98 % Carlos Melendez DO Work Phone: [facility] 02-22-2023 07:30-0400 Systolic blood pressure 106 mm[Hg] Carlos Nora DO Work Phone: [facility] [employer] 02-21-2023 19:29-0400 Respiratory rate 18 /min Carlos Nora DO Work Phone: [facility] [employer] 02-15-2023 07:47-0400 Body temperature 37.0 Carlos Nora DO Work Phone: [facility] [employer] 02-14-2023 05:00-0400 Body mass index (BMI) [Ratio] 25.62 kg/m2 Carlos Melendez DO Work Phone: [facility] [employer] 02-14-2023 05:00-0400 Body weight 72 kg Carlos Melendez DO Work Phone: [facility] [employer] 02-14-2023 01:22-0400 Body temperature 37.0 Carlos Melendez DO Work Phone: [facility] [employer] 02-14-2023 00:52-0400 Body height 167.6 cm Carlos Melendez DO Work Phone: [facility] [employer] 12-22-2022 11:10-0400 Blood Pressure Location Valdemar MCCLENDON [facility] 12-22-2022 11:10-0400 Body temperature 98.78 [degF] Valdemar CORONALE [facility] 12-22-2022 11:10-0400 Diastolic blood pressure 80 mm[Hg] Valdemar KAPLE [facility] 12-22-2022 11:10-0400 Heart rate 82 /min Valdemar CORONALE [facility] 12-22-2022 11:10-0400 SaO2% (BldA) [Mass fraction] 96 % Valdemar KAPLE [facility] 12-22-2022 11:10-0400 Systolic blood pressure 124 mm[Hg] Valdemar KAPLE [facility] 12-20-2022 14:50-0400 Body height 170.18 cm Karen [place] Other [facility] Other 12-20-2022 14:50-0400 Body mass index (BMI) [Ratio] 23.33 kg/m2 Karen [place] Other [facility] Other 12-20-2022 14:50-0400 Body temperature 99.3 [degF] Karen [place] Other [facility] Other 12-20-2022 14:50-0400 Body weight 67.59 kg Karen [place] Other [facility] Other 12-20-2022 14:50-0400 Respiratory rate 16 /min Karen [place] Other [facility] Other 12-20-2022 14:50-0400 SaO2% (BldA) [Mass fraction] 98 % Karen [place] Other [facility] Other 09-24-2022 08:54-0500 Blood Pressure Location Valdemar KAPLE [facility] 09-24-2022 08:54-0500 Diastolic blood pressure 82 mm[Hg] Valdemar KAPLE [facility] 09-24-2022 08:54-0500 Heart rate 76 /min Valdemar KAPLE [facility] 09-24-2022 08:54-0500 Respiratory rate 18 /min Valdemar KAPLE [facility] 09-24-2022 08:54-0500 SaO2% (BldA) [Mass fraction] 100 % Valdemar KAPLE [facility] 09-24-2022 08:54-0500 Systolic blood pressure 120 mm[Hg] Valdemar KAPLE [facility] 07-15-2022 12:38-0500 Blood Pressure Location Donna Cogar [facility] 07-15-2022 12:38-0500 Body temperature 98.6 [degF] Donna Cogar [facility] 07-15-2022 12:38-0500 Diastolic blood pressure 72 mm[Hg] Donna Cogar [facility] 07-15-2022 12:38-0500 Heart rate 67 /min Donna Cogar [facility] 07-15-2022 12:38-0500 SaO2% (BldA) [Mass fraction] 98 % Donna Cogar [facility] 07-15-2022 12:38-0500 Systolic blood pressure 118 mm[Hg] Donna Cogar [facility] 06-23-2022 09:06-0400 Blood Pressure Location Valdemar KAPLE [facility] 06-23-2022 09:06-0400 Body temperature 98.24 [degF] Valdemar KAPLE [facility] 06-23-2022 09:06-0400 Diastolic blood pressure 72 mm[Hg] Valdemar KAPLE [facility] 06-23-2022 09:06-0400 Heart rate 82 /min Valdemar KAPLE [facility] 06-23-2022 09:06-0400 Respiratory rate 16 /min Valdemar KAPLE [facility] 06-23-2022 09:06-0400 SaO2% (BldA) [Mass fraction] 98 % Valdemar KAPLE [facility] 06-23-2022 09:06-0400 Systolic blood pressure 118 mm[Hg] Valdemar KAPLE [facility] 03-12-2022 08:09-0400 Blood Pressure Location Valdemar KAPLE [facility] 03-12-2022 08:09-0400 Body temperature 98.24 [degF] Valdemar KAPLE [facility] 03-12-2022 08:09-0400 Diastolic blood pressure 62 mm[Hg] Valdemar KAPLE [facility] 03-12-2022 08:09-0400 Heart rate 68 /min Valdemar KAPLE [facility] 03-12-2022 08:09-0400 Respiratory rate 16 /min Valdemar KAPLE [facility] 03-12-2022 08:09-0400 SaO2% (BldA) [Mass fraction] 100 % Valdemar KAPLE [facility] 03-12-2022 08:09-0400 Systolic blood pressure 110 mm[Hg] Valdemar KAPLE [facility] 12-04-2021 13:39-0400 Blood Pressure Location Valdemar KAPLE [facility] 12-04-2021 13:39-0400 Body temperature 98.24 [degF] Valdemar KAPLE [facility] 12-04-2021 13:39-0400 Diastolic blood pressure 76 mm[Hg] Valdemar KAPLE [facility] 12-04-2021 13:39-0400 Heart rate 87 /min Valdemar KAPLE [facility] 12-04-2021 13:39-0400 Respiratory rate 16 /min Valdemar KAPLE [facility] 12-04-2021 13:39-0400 SaO2% (BldA) [Mass fraction] 98 % Valdemar KAPLE [facility] 12-04-2021 13:39-0400 Systolic blood pressure 116 mm[Hg] Valdemar KAPLE [facility] Encounters Encounter Date Encounter Type Care Provider Facility Start: 08-17-2025 ambulatory Valdemar A DANELLE Facility: [facility] Start: 05-10-2025 End: 05-10-2025 ambulatory Valdemar A KAPLE Facility:[facility] Start: 05-10-2025 End: 05-10-2025 Patient encounter procedure Valdemar A DANELLE [facility] Start: 03-05-2025 End: 03-05-2025 ambulatory Yaya Johnson MD Facility: [facility] Start: 02-27-2025 End: 02-27-2025 ambulatory Valdemar MCCLENDON Facility:[facility] Start: 02-27-2025 End: 02-27-2025 Patient encounter procedure Valdemar MCCLENDON [facility] Start: 02-08-2025 End: 02-08-2025 ambulatory Valdemar MCCLENDON Facility:[facility] Start: 02-08-2025 End: 02-08-2025 Patient encounter procedure Valdemar MCCLENDON [facility] Start: 01-22-2025 End: 01-22-2025 ambulatory Yaya Johnson MD Facility:[facility] Start: 11-09-2024 [facility] Quiana gabriel Other [facility] Office Start: 10-31-2024 End: 10-31-2024 ambulatory Valdemar MCCLENDON Facility:[facility] Start: 10-30-2024 End: 10-30-2024 ambulatory Yaya Johnson MD Facility:[facility] Start: 09-25-2024 End: 09-25-2024 ambulatory Yaya Johnson MD Facility:[facility] Start: 08-01-2024 End: 08-01-2024 ambulatory Valdemar MCCLENDON Facility:[facility] Start: 08-01-2024 End: 08-01-2024 Patient encounter procedure Valdemar MCCLENDON [facility] Start: 07-17-2024 End: 07-17-2024 Emergency department patient visit VALDEMAR MCCLENDON [facility] Start: 05-02-2024 End: 05-02-2024 Patient encounter procedure Valdemar MCCLENDON [facility] Start: 01-21-2024 End: 01-21-2024 Patient encounter procedure Valdemar MCCLENDON [facility] Start: 11-26-2023 End: 11-26-2023 Patient encounter procedure Valdemar MCCLENDON [facility] Start: 10-14-2023 End: 10-14-2023 Patient encounter procedure Valdemar MCCLENDON [facility] Start: 07-09-2023 End: 07-09-2023 Patient encounter procedure Valdemar MCCLENDON [facility] Start: 05-28-2023 End: 05-31-[address] [facility] Start: 04-15-2023 End: 04-15-2023 Emergency department patient visit Darlene Gutiérrez [facility] Start: 04-15-2023 End: 04-15-2023 Patient encounter procedure Valdemar MCCLENDON [facility] Start: 04-08-2023 End: 04-08-2023 Emergency department patient visit Joseph Thompson [facility] Start: 03-09-2023 End: 03-10-2023 ambulatory DAVID GANT ALEK [facility] Start: 03-09-2023 End: 03-10-2023 Emergency department patient visit Anyi Ghosh MD Work Phone: [facility] Observation Unit Comment on above: Syncope and collapse (Primary Dx); SDH (subdural hematoma) (HCC) Start: 02-22-2023 End: 03-04-2023 Evaluation and management of inpatient PHYSICIAN NO FAMILY Facility:[facility] Start: 02-14-2023 End: 02-22-2023 Evaluation and management of inpatient FELISA Howard [facility] Start: 02-14-2023 End: 02-22-2023 Evaluation and management of inpatient Carlos Melendez DO Work Phone: [facility] Comment on above: Fall, initial encoun ter (Primary Dx); SDH (subdural hematoma) (HCC) Start: 12-22-2022 End: 12-22-2022 Patient encounter procedure Valdemar MCCLENDON [facility] Start: 12-20-2022 End: 12-20-2022 ambulatory Karen [place] Other [facility] Other Start: 12-20-2022 Office outpatient ne w 30 minutes Karen Marshall [facility] Start: 09-24-2022 End: 09-24-2022 Patient encounter procedure Valdemar MCCLENDON [facility] Start: 07-15-2022 End: 07-15-2022 Patient encounter procedure Donna Arora [facility] Start: 06-23-2022 End: 06-23-2022 Patient encounter procedure Valdemar MCCLENDON [facility] Start: 03-12-2022 End: 03-12-2022 Patient encounter procedure Valdemar MCCLENDON [facility] Start: 12-04-2021 End: 12-04-2021 Patient encounter procedure Valdemar MCCLENDON [facility] Start: 09-29-2021 Encounter for preprocedural laboratory examination DR LEONILA PEREZ [facility] Start: 09-26-2021 End: 09-26-[address] LEONILA PEREZ Facility:[facility] Start: 09-25-2021 End: 09-26-[address] LEONILA PEREZ Facility:[facility] Start: 09-25-2021 End: 09-26-2021 Encounter for preprocedural laboratory examination DR LEONILA PEREZ Facility:[facility] Start: 09-22-2021 Encounter for preprocedural cardiovascular examination DR LEONILA PEREZ [facility] Start: 09-18-2021 End: 09-19-[address] LEONILA PEREZ Facility:[facility]1 Start: 08-19-2021 End: 08-19-[address] LEONILA PEREZ Facility:[facility]1 Start: 07-21-2021 End: 07-22-2021 ambulatory NONE LISTED REQUEST Facility:[facility]1 Start: 05-09-2021 End: 05-09-2021 RhD negative Valdemar MCCLENDON [facility] Start: 04-25-2021 End: 04-26-[address] CRISS MORALES Facility:[facility]1 Start: 04-21-2021 End: 04-23-2021 ambulatory NONE LISTED REQUEST Facility:[facility]1 Start: 04-10-2021 End: 04-23-[address] DOCTOR RUBI Facility:[facility]1 Start: 03-19-2021 End: 03-19-[address] CLAUDETTE DODD Facility:[facility]1 Start: 10-29-2017 End: 11-03-2017 [facility] Procedures Date Procedure Procedure Detail Performing Clinician Start: 11-09-2024 Nerve conduction missy dies 5-6 studies Quiana Sanders Start: 03-10-2023 Basic metabolic pane l calcium total David Herrera MD Work Phone: Start: 03-09-2023 COVID-19, RAPID David Herrera MD Work Phone: Start: 03-09-2023 Ecg routine ecg w/le ast 12 lds w/i&r Philip Lainez DO Work Phone: Start: 03-09-2023 Drug tst prsmv instr mnt chem analyzers pr date Philip Lainez DO Work Phone: Start: 03-09-2023 Ct head/brain w/o co ntrast material Philip Lainez DO Work Phone: Start: 03-09-2023 Assay of ethanol Alexan Dahl DO Work Phone: Start: 03-09-2023 End: [...] TO MG FOR LOW K Fabiola Heaton CORN DETASSELER MACHINE OPERATOR - LEGAL ENTITY CONTROLLER Work Phone: Start: 02-20-2023 BASIC METABOLIC PANE L W/ REFLEX TO MG FOR LOW K Fabiola Jose Sudarshan CORN DETASSELER MACHINE OPERATOR - LEGAL ENTITY CONTROLLER Work Phone: Start: 02-19-2023 BASIC METABOLIC PANE L W/ REFLEX TO MG FOR LOW K Fabiola Jose Sudarshan CORN DETASSELER MACHINE OPERATOR - LEGAL ENTITY CONTROLLER Work Phone: Start: 02-19-2023 Blood count complete auto&auto difrntl wbc Fabiola Jose Sudarshan CORN DETASSELER MACHINE OPERATOR - LEGAL ENTITY CONTROLLER Work Phone: Start: 02-18-2023 Ct head/brain w/o co ntrast material Fabiola Jose Sudarshan CORN DETASSELER MACHINE OPERATOR - LEGAL ENTITY CONTROLLER Work Phone: Start: 02-15-2023 Assay of ammonia Aaron oLpez MD Work Phone: Start: 02-15-2023 Blood gases any comb ination ph pco2 po2 co2 hco3 Dottie Cuello MD Work Phone: Start: 02-15-2023 Calcium ionized Chata na Valorie Cuello MD Work Phone: Start: 02-15-2023 Comprehensive metabo lic panel Randall Pereira MD Work Phone: Start: 02-14-2023 Radex elbow 2 views Abd tevin Pereira MD Work Phone: Start: 02-14-2023 Assay of lactate Keya Ulises DO Work Phone: Start: 02-14-2023 Radex spine cervical 2 or 3 views Randall Pereira MD Work Phone: Start: 02-14-2023 Ct head/brain w/o co ntrast material Judi Clifford DO Work Phone: Start: 02-14-2023 Drug tst prsmv instr mnt chem analyzers pr date Judi Zion Clifford DO Work Phone: Start: 02-14-2023 Urnls dip stick/tabl et rgnt auto w/o microscopy Judi E Clifford DO Work Phone: Start: 02-14-2023 BASIC METABOLIC PANE L W/ REFLEX TO MG FOR LOW K Judi Donovan Clifford DO Work Phone: Start: 02-14-2023 Calcium ionized Judi Zion Darrin DO Work Phone: Start: 02-14-2023 Hepatic function panel Judi Zion Clifford DO Work Phone: Start: 02-14-2023 Iadna s aureus methi cillin resist amp probe tq Felisa Segura MD Work Phone: Start: 02-14-2023 Ecg routine ecg w/le ast 12 lds trcg only w/o i&r Dottie Cuello MD Work Phone: Start: 02-14-2023 Ct cervical spine w/ o contrast material Keya Ulises DO Work Phone: Start: 02-14-2023 Ct head/brain w/o co ntrast material Keya Iredell DO Work Phone: Start: 02-14-2023 CT LUMBAR SPINE TRAU MA RECONSTRUCTION Keya Iredell DO Work Phone: Start: 02-14-2023 CT THORACIC SPINE TR AUMA RECONSTRUCTION Keya Ulises DO Work Phone: Start: 02-14-2023 Ct thorax w/contrast material Keya Iredell DO Work Phone: Start: 02-14-2023 TRAUMA PANEL [...] DTaP/Tdap/Td vaccine (2 - Td or Tdap) [facility] Start: 04-09-2023 End: 04-09-2023 Patient encounter procedure 04/09/2023 Office Visit Neurosurgery Yara King W, CORN DETASSELER MACHINE OPERATOR - LEGAL ENTITY CONTROLLER [address] [facility] [address] [facility] [address] [place] [address] [facility] Start: 03-23-2023 Influenza vaccination Flu vaccine (# 1) [facility] Start: 03-05-2023 End: 03-05-2023 Patient encounter procedure 03/05/2023 Office Visit Neurosurgery Yara King, CORN DETASSELER MACHINE OPERATOR - LEGAL ENTITY CONTROLLER [address] [facility] [address] [place] [address] [facility] Start: 03-01-2023 End: 02-16-2024 CT HEAD WO CONTRAST CT HEAD WO CONTRAST Imaging Routine SDH (subdural hematoma) (HCC) Expected: 03/01/2023, Expires: 02/16/2024 [facility] Work Phone: Comment on above: Expected: 03/01/2023 , Expires: 02/16/2024 Start: 2015 [facility] Start: 2006 Screening for malign ant neoplasm of cervix Pap smear [facility] Start: 2003 Hepatitis C screening Hepatitis C sc reen [facility] Start: 2000 HIV screening HIV screen [facility] Start: 1997 Depression Screen Depression Screen [facility] Start: 1986 Varicella vaccine (1 of 2 - 2-dose childhood series) Varicella vaccine (1 of 2 - 2-dose childhood series) [facility] Start: 1985 COVID-19 Vaccine (#1) COVID-19 Vacci ne (#1) [facility] End: 03-13-2023 CBC W Auto Differential panel - Blood CBC with Auto Differential Lab Routine Daily for 4 Occurrences starting 03/10/2023 until 03/13/2023, 1 completed [facility] [employer] Work Phone: Comment on above: Daily for 4 Occurren toribio starting 03/10/2023 until 03/13/2023, 1 completed End: 03-13-2023 Magnesium [Mass/volume] in Serum or Plasma Magnesium Lab Routine Daily for 4 Occurrences starting 03/10/2023 until 03/13/2023, 1 [facility] [employer] Comment on above: Daily for 4 Occurren toribio starting 03/10/2023 until 03/13/2023, 1 completed End: 02-14-2023 Speech and language therapy regime Speech language pathology evaluation QUILLER MACHINE FIXER Routine One Time for 1 Occurrences starting 02/14/2023 until 02/14/2023 [facility] Work Phone: Comment on above: One Time for 1 Occur rences starting 02/14/2023 until 02/14/2023 End: 03-27-2023 Spirometry panel Incentive spirometry Respiratory Care Routine Every 1hr while awake for 41 Days starting 02/14/2023 until 03/27/2023 [facility] Comment on above: Every 1hr while awak e for 41 Days starting 02/14/2023 until 03/27/2023 Immunizations Immunization Date Immunization Notes Care Provider Fa cili 05-25-2019 influenza virus vaccine, unspecified formulation Valdemar MCCLENDON [facility] 09-27-2013 tetanus toxoid, reduced diphtheria toxoid, and acellular pertussis vaccine, adsorbed Valdemar MCCLENDON [facility] 05-28-2011 influenza virus vaccine, unspecified formulation Valdemar MCCLENDON [facility] NEGATED: Highlighted row has not occurred!05-02-2024 influenza virus vaccine, unspecified formulation Valdemar MCCLENDON [facility] NEGATED: Highlighted row has not occurred!07-09-2023 influenza virus vaccine, unspecified formulation Valdemar MCCLENDON [facility] NEGATED: Highlighted row has not occurred!09-24-2022 influenza virus vaccine, unspecified formulation Valdemar MCCLENDON [facility] NEGATED: Highlighted row has not occurred!09-24-2022 SARS-CoV-2 mRNA (tozinameran 5y-11y) vaccine Valdemar MCCLENDON [facility] Payers Date Payer Category Payer Private Health Insurance [id number] 2024 Private Health Insurance [id number] 2024 Private Health Insurance [id number] 2024 Worker's Compensation 2023 Self-pay 2022 Private Health Insurance [id number] 1985 Unknown [id number] 2.16.84 0.1.145667.3.579.2.593 1985 Unknown [id number] 2.16.84 0.1.020732.3.579.2.593 1985 Unknown [id number] 2.16.84 0.1.941876.3.579.2.593 1985 Unknown [id number] 2.16.84 0.1.460918.3.579.2.593 1985 Unknown [id number] 2.16.84 0.1.979989.3.579.2.593 1985 Unknown [id number] 2.16.84 0.1.581759.3.579.2.593 1985 Unknown [id number] 2.16.84 0.1.482620.3.579.2.593 1985 Unknown [id number] 2.16.84 0.1.666359.3.579.2.593 1985 Unknown [id number] 2.16.84 0.1.565695.3.579.2.593 1985 Unknown [id number] 2.16. 840.1.597166.3.579.2.175 1985 Unknown [id number] 2.16. 840.1.656052.3.579.2.175 1985 Unknown [id number] 2.16. 840.1.946077.3.579.2.175 1985 Unknown [id number] 2.16. 840.1.300192.3.579.2.175 1985 Unknown [id number] 2.16.8 40.1.272855.3.579.2.1286 1985 Unknown [id number] 2.16.8 40.1.634599.3.579.2.727 1985 Unknown [id number] 2.16. 840.1.202423.3.579.2.196 1985 Unknown [id number] 2.16. 840.1.817651.3.579.2.196 1985 Unknown [id number] 2.16. 840.1.537346.3.579.2.196 1985 Unknown [id number] 2.16. 840.1.441768.3.579.2.196 1985 Unknown [id number] 2.16.8 40.1.721411.3.579.2.727 1985 Unknown [id number] 2.16.8 40.1.080034.3.579.2.727 1985 Unknown [id number] 2.16.8 40.1.971512.3.579.2.727 1985 Unknown [id number] 2.16.8 40.1.633474.3.579.2.727 1985 Unknown [id number] 2.16.8 40.1.508254.3.579.2.727 1985 Unknown [id number] 2.16.8 40.1.050962.3.579.2.727 1959 Unknown [id number] Unknown [id number] 2.16.8 40.1.061555.3.579.2.531 Worker's Compensation [id number] Social History Date Type Detail Facility Start: 03-07-2021 Tobacco smoking status Light t obacco smoker (finding) [facility] Start: 07-15-2022 End: 05-10-2025 Tobacco smoking status Ex-smoker (finding) [facility] Sex Assigned At Female [facility] Tobacco smoking status Never [facility] unknown [facility] [employer] Start: 1985 Sex Assigned At Not on file [facility] Start: *Tobacco [facility] Sexual Orientation [facility] Start: 12-04-2009 Sex Female (finding) [facility] Functional Status Date Assessment Result Facility 08-01-2024 Functional Status N/A [facility] 05-02-2024 Functional Status N/A [facility] 01-21-2024 Functional Status N/A [facility] 11-26-2023 Functional Status N/A [facility] 10-14-2023 Functional Status N/A [facility] 07-09-2023 Functional Status N/A [facility] 04-15-2023 Functional Status N/A [facility] 04-15-2023 Functional Status N/A [facility] 04-08-2023 Functional Status N/A [facility] 12-22-2022 Functional Status N/A [facility] 09-24-2022 Functional Status N/A [facility] 07-15-2022 Functional Status N/A [facility] 06-23-2022 Functional Status N/A [facility] 03-12-2022 Functional Status N/A [facility] Clinical Notes 03-12-2022 to 05-10-2025 Note Date & Type Note Facility 05-10-2025 Hospital Discharg e instructions Patient Education 05/10/2025 15:40:48 Complex Regional Pain Syndrome Complex Regional Pain Syndrome Complex regional pain syndrome (CRPS) is a nerve disorder that is characterized by long-term (chronic) pain. The pain is usually in a hand, arm, foot, or leg. CRPS usually occurs after an injury or trauma, such as a fracture or sprain. There are two types of CRPS: Type 1. This type occurs after an injury with no known damage to a nerve. Type 2. This type occurs after an injury that damages a nerve. There are three stages of the condition: Stage 1. This stage, called the acute stage, may last for up to 3 months. Stage 2. This stage, called the dystrophic stage, may last for 3 12 months. Stage 3. This stage, called the atrophic [...] this condition if: You are female. You have any of the following: ?A wrist fracture that involves a lower arm bone (distal radius fracture). ?Ankle dislocation or fracture. ?A long surgery time. ?Possible nerve injury during surgery. What are the signs or symptoms? Signs and symptoms in the affected hand, arm, foot, or leg are different for each stage. Signs and symptoms of stage 1 include: Spontaneous pain that feels like a burning or prickling, tingling feeling (pins and needles sensation). Extremely sensitive skin. Swelling. Joint stiffness. Warmth and redness. Excessive sweating. Hair and nail growth that is faster than normal. Signs and symptoms of stage 2 include: Spreading of pain to the whole arm or leg. Increased skin sensitivity. Increased swelling and stiffness. Coolness of the skin. Blue discoloration of skin. Loss of skin wrinkles. Brittle fingernails. Signs and symptoms of stage 3 include: Pain that spreads to other areas of the body but becomes less severe. More stiffness, leading to loss of motion. Skin that is pale, dry, shiny, or tightly stretched. How is this diagnosed? This condition may be diagnosed based on: Your signs and symptoms. A physical exam. There is no test to diagnose CRPS, but you may have tests: To check for bone changes that might indicate CRPS. These tests may include an MRI or bone scan. To rule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 Clinical Factors: Donned slide in noreen adela on 4 figure tech d/t high pain [...] Verbalized understanding;Continued education needed;Demonstrated understanding AM-PAC Score [facility] Inpatient Daily Activity Raw Score: 18 (02/22/23 115) AM-PAC Inpatient ADL T-Scale Score : 38.66 (02/22/231151) ADL Inpatient CMS 0-100% Score: 46.65 (02/22/23 [...] 44 Timed Code Treatment Minutes: 39 Minutes RYLEE Martins * Rosina Lugo - 02/22/2023 11:14 AM EDT Speech Language Pathology [facility] Cognitive Treatment Note Date: 02/22/2023 Patient s Name: Felisa Jones Diagnosis: Patient Active Problem List Diagnosis Code SDH (subdural hematoma) (HCC) S06.5XAA Fall W19.XXXA Cognitive Treatment Treatment time: 7987-9605 Subjective: [x] Alert [x] Cooperative [] Confused [] Agitated [] Lethargic Objective/Assessment: Recall: Delayed Recall-Related Words: 4 increased to 6/6 with min-mod cues, Word List Retention-Attribute Inclusion: 04/02 increased to 06/02 with repetition and min cues Problem Solving/Reasoning: Add to the Category-Lawrence: 04/02 increased to 07/03 with min-mod cues,Problem Solving-Missing Equipment: 01/27 increased to 02/26 with mod cues, Category Members-Lawrence Generation: Pt able to independently name 9+ [...] recommended at discharge. Completed by Rosina Lugo Cellar Pumper Clinician Co-signed by Sultana Lema M.A.CCC/QUILLER MACHINE FIXER * Zoraida Davies, PT - 02/22/2023 10:03 AM EDT Physical Therapy Facility/Department: [address] ONC/MED SURG Daily treatment note Name: [...] AM-PAC Inpatient Mobility Raw Score : 18 (02/22/23 1003) AM-PAC Inpatient T-Scale Score : 43.63 (02/22/23 100) Mobility Inpatient CMS 0-100% Score: 46.58 (02/22/23 1003) Mobility Inpatient CMS G-Code Modifier : CK [...] Time Individual Concurrent Group Co-treatment Time In 923 Time Out 0949 Minutes 25 Timed Code [...] diet [facility]po plannning [facility] SUB[facility] Felisa Jones was seen and [...] 85 93 94 No results found. Isabel Yojana Lizabeth, DO 02/21/23, 8:01 AM Attestation signed by Jt Corbin MD I personally evaluated the patient and directed the medical decision making with Resident/SULTANA afterthe physical/radiologic exam and laboratory values were reviewed and confirmed. Still c/o headaches. 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 [facility] to accept, precert has begun. SUBJECTIVE Felisa [...] 2800 [Urine:2800] LAB: CBC: Recent Labs 02/19/23 09 WBC 6.0 HGB 11.1* HCT 34.9* MCV 92.6 PLT 251 BMP: Recent Labs 02/19/23 0924 02/20/23 0604 NA 138 138 K 4.1 4.0 CL 105 104 CO2 24 20 BUN 8 13 CREATININE 0.42* 0.48* GLUCOSE 85 93 COAGS: No results for input(s): APTT, PROT, INR in the last 72 hours. Philip Lainez DO 02/20/23, 11:09 AM Attestation signed by Jt Corbin MD I personally evaluated the patient and directed the medical decision making with Resident/SULTANA afterthe physical/radiologic exam and laboratory values were reviewed and confirmed. Jt Corbin MD * ISIDRO Villagran - 02/19/2023 4:06 PM EDT Physical Therapy Facility/Department: [address] ONC/MED SURG Physical Therapy Daily Treatment [...] supine in bed upon arrival. Pt. c/o 10 Rsided head pain this date. Pt. c/o [...] Mobility Inpatient CMS 0-100% Score: 41.77 (02/19/23 160) Mobility Inpatient CMS G-Code Modifier : CK (02/19/231604) Goals Short Term Goals Time Frame for [...] 02/19/2023 11:48 AM EDT Speech Language Pathology [facility] Cognitive Treatment Note Date: 02/19/2023 Patient s Name: Felisa Jones Diagnosis: Patient Active Problem List Diagnosis Code SDH (subdural hematoma) (HCC) S06.5XAA Fall W19.XXXA Pain: 7/10 Pain reported to RN Cognitive Treatment Treatment time: 4473-0579 Subjective: [x] Alert [x] Cooperative [] Confused [] Agitated [] Lethargic Objective/Assessment: Recall: Delayed Recall-Related Words: 4/6 increased to 6/6 with min cues, Immediate Recall 4 Units:8/8 Problem Solving/Reasoning: Wrong Category-Lawrence: 4/7 increased to 7/7 with repetition and min cues, Problem Solving-Answering Questions: 06/01, Category Members-Lawrence Generation: pt able to independently name 7+ [...] recommended at discharge. Completed by Rosina Lugo Cellar Pumper Clinician Co-signed by Sultana Lema M.A.CCC/QUILLER MACHINE FIXER * Jt Corbin MD - 02/19/2023 7:33 [...] Rosina Lugo - 02/18/2023 1:38 PM EDT [facility] Speech Language Pathology Date: 02/18/2023 Patient Name: Felisa Jones Date of : 1985 AGE: 37 y.o. Patient Not Available for Speech Therapy Due to: [] Testing [] Hemodialysis [] Cancelled by RN [] Surgery [] Intubation/Sedation/Pain Medication [] Medical instability [x] Other: Pt reports 8/10 pain today, requested to try tomorrow. Reported pain to RN. Next scheduled treatment: 02/19/23 Completed by Rosina Lugo Cellar Pumper Clinician Co-signed by Funmi Jaffe M.S., CCC/QUILLER MACHINE FIXER * Jt Corbin MD - 02/18/2023 9:50 [...] Will repeat head ct today, add in renetta She is not ready for dc home [...] and confirmed. Jt Corbin MD * Mina Latham, PT - 02/18/2023 9:26 AM EDT Physical Therapy Facility/Department: [address] ONC/MED SURG Physical Therapy treatment Name: [...] Mobility Inpatient CMS G-Code Modifier : CK (02/18/23924) Goals Short Term Goals Time Frame for [...] 02/17/2023 4:20 PM EDT Occupational Therapy Facility/Department: [address] ONC/MED SURG Occupational Therapy Daily Progress [...] Walker: Rolling ADL Assistive Devices: Transfer Tub Bench;Clinical Training Specialist;Sock-Aid Hard;Long-handled Sponge;Long-handled Shoe Horn;Toileting - Raised Toilet [...] Caregiver Present: No Diagnosis: SDH, Fall [facility] Subjective Subjective: 7/10 H/A, repositioning provided, low [...] Inpatient ADL T-Scale Score : 37.26 (02/17/23 1553) ADL Inpatient CMS 0-100% Score: 50.11 (02/17/23 5423) ADL Inpatient CMS G-Code Modifier : CK (02/17/23 6173) Goals Short Term Goals Time Frame for [...] when in bed LAB: CBC: Recent Labs 02/15/23424 WBC 6.1 HGB 11.1* HCT 35.3* MCV 92.4 PLT 224 BMP: Recent Labs 02/15/235 NA 137 K 4.0 CL 108* CO2 20 BUN 5* CREATININE 0.44* GLUCOSE 103* Attestation signed by Jt Corbin MD I personally evaluated the patient and directed the medical decision making with Resident/SULTANA afterthe physical/radiologic exam and laboratory values were reviewed and confirmed. Jt Corbin MD * FINN Ogden - 02/17/2023 12:48 PM EDT Speech Language Pathology [facility] Cognitive Treatment Note Date: 02/17/2023 Patient s Name: Felisa Jones Diagnosis: Patient Active Problem List Diagnosis Code SDH (subdural hematoma) (HCC) S06.5XAA Pain: 6/10 at beginning of session, 8/10 at end. Pain reported to RN. Cognitive Treatment Treatment time: 9464-6254 Subjective: [x] Alert [x] Cooperative [] Confused [] Agitated [] Lethargic Objective/Assessment: Recall: Delayed Recall-Related Words: 4/6 increased to 6/6 with min-mod cues, Immediate Recall 5 Units: 2/5 increased to 3/5 with repetition Problem Solving/Reasoning: Category Members-Lawrence Generation: 14/20 increased to 20/20 with min cues, Stating Situational Problems: 4/8 increased to 8/8 with min-mod cues, Opposites: 7/8 increasedto 8/8 with min cues, Multiple Definitions: 11/12 increased to 12/12 with mod cues Other: [...] recommended at discharge. Completed by Rosina Lugo Cellar Pumper Clinician Co-signed by Sultana Lema M.A.CCC/QUILLER MACHINE FIXER * José Miguel Paulino, OT - 02/16/2023 11:03 AM EDT Occupational Therapy Facility/Department: [address] ONC/MED SURG Occupational Therapy Initial Assessment [...] Walker: Rolling ADL Assistive Devices: Transfer Tub Bench;Clinical Training Specialist;Sock-Aid Hard;Long-handled Sponge;Long-handled Shoe Horn;Toileting - Raised Toilet [...] SDH, Fall at concert-[facility] Subjective Subjective: 7/10 H/A per pt, It [...] Ambulation Assistance: Independent Transfer Assistance: Independent Active Geologist: Yes Mode of Transportation: [place] 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 Leisure & Hobbies: [place] Objective [...] to Learning: Vision;Hearing Education Outcome: Verbalized understanding [facility] Score [facility] Inpatient Daily Activity Raw Score: 16 (02/16/231047) [facility] Inpatient ADL T-Scale Score : 35.96 (02/16/231047) [...] Code Treatment Minutes: 30 Minutes José Miguel Leemaster, OTR/L * Fabiola Heaton, CORN DETASSELER MACHINE OPERATOR - LEGAL ENTITY CONTROLLER - 02/16/2023 9:49 AM EDT Images from [...] when in bed LAB: CBC: Recent Labs 02/14/23 0053 02/14/23 [...] 02/15/2023 4:23 PM EDT Physical Therapy Facility/Department: [address] ONC/MED SURG Physical Therapy Initial Assessment [...] Ambulation Assistance: Independent Transfer Assistance: Independent Active Geologist: Yes Mode of Transportation: [place] 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 Strength Other Other: Business Manager [employer] strength noticably greater on L compared to [...] d/t increased dizziness and postural sway requiring field underwriter to assist standing balance to prevent LOB. Ambulation Comments: Unsafe to attempt d/t dizziness. Balance Posture: Good Sitting - Static: Fair;+ Sitting - Dynamic: Fair;+ Standing - Static: Poor;+ Comments: Standing balance assessed w/out AD. Balance initially CGA, progressed to ModA w/ prolonged standing and worsening dizziness. AM-PAC Score AM-PAC Inpatient Mobility Raw Score : 14 (02/15/231622) AM-PAC Inpatient T-Scale Score : 38.1 (02/15/231622) Mobility Inpatient CMS 0-100% Score: 61.29 (02/15/231622) Mobility Inpatient CMS G-Code Modifier : CL (02/15/231622) Goals Short Term Goals Time Frame for [...] Rosina Lugo - 02/15/2023 1:42 PM EDT QUILLER MACHINE FIXER ALL NOTES Facility/Department: [facility] CAR 1- SICU Initial Speech/Language/Cognitive Assessment NAME: [...] therapy recommended at discharge. Recommendations: Recommendations Requires QUILLER MACHINE FIXER Intervention: Yes Patient Education: Yes Patient Education [...] Memory Memory: Exceptions to WFL (Immediate Recall: /3, 4/5, 3) Short-term Memory: (1/3 increased to 3/3 with min-mod cues, 2/3 increased to 3/3 with min cues) Problem Solving Problem Solving: Exceptions to WFL Verbal Reasoning Skills: (Word Associations: 11/24, Antonyms: /, Inductive Reasonin/4 increasedto 4/4 with min cues, Similarities/Differences: 2/2, Word Deductions: /) Sequencing: (11/24) Abstract Reasoning Abstract Reasoning: Exceptions to WFL Divergent Thinking: (02/19) Safety/Judgment Safety/Judgment: Exceptions to WFL Insight: (10/23) Flexibility of Thought: (12/26) Prognosis: Speech Therapy Prognosis Prognosis: Fair Individuals consulted Consulted and agree with results and recommendations: Patient Education: Patient Education: Yes Patient Education Response: Verbalizes understanding Therapy Time: Individual Concurrent Group Co-treatment Time In 1316 Time Out 1333 Minutes 17 Completed by Rosina Neumann Student Clinician Co-signed by Funmi Jaffe M.S. CCC/QUILLER MACHINE FIXER * GABRIELA Edward CNP - 02/14/2023 1:18 PM EDT Felisa Jones is alert and oriented.TLS precautions was examined. All images reviewed. Pt logged rolled. No tenderness or stepoffs noted. TLS is cleared. Pt able to sit up and ambulate. GABRIELA EDWARD CNP 02/14/2023 1:18 PM * FINN Yee - 02/14/2023 11:56 AM EDT [facility] Speech Language Pathology Date: 02/14/2023 Patient Name: Felisa Jones Date of : 1985 AGE: 37 y.o. Patient Not Available for Speech Therapy Due to: [] Testing [] Hemodialysis [] Cancelled by RN [] Surgery [] Intubation/Sedation/Pain Medication [] Medical instability [x] Other: busy getting cleaned up Next scheduled treatment: 02/15/26 Completed by: Lorena Albert QUILLER MACHINE FIXER, M.Ed. [facility]-QUILLER MACHINE FIXER * José Miguel Paulino OT - 02/14/2023 7:24 AM EDT Images from the original note were not included. Occupational Therapy [facility] Occupational Therapy Not Seen Note DATE: 02/14/2023 [...] 15 100 % -- -- 02/14/23 0600 117/77 97.9 F (36.6 C) 69 18 99 % -- -- 02/14/23 0500 116/70 -- 77 17 97 % -- 158 lb 11.7 oz (72 kg) 02/14/23 0400 116/ 97.3 F (36.3 C) 73 16 100 % -- -- 02/14/23 0300 110/ 97.3 F (36.3 C) 57 17 100 % -- -- 02/14/23 0130 110/ -- 68 17 100 % -- -- 02/14/23 0115 118/78 -- 75 17 100 % -- -- 02/14/23 0100 115/81 -- 68 14 100 % -- -- 02/14/23 0052 -- -- -- -- -- 5' 6 (1.676 m) 130 lb (59 kg) 02/14/23 005 -- 71 18 100 % -- -- 02/14/23 0047 -- 97.2 F (36.2 C) -- -- -- -- -- 02/14/2345 -- 16 99 % -- -- I/O last [...] Spine: Spine Tenderness ROM Cervical 0 /10 Hardin Thoracic 0 /10 Normal Lumbar 0 /10 [...] 12:58 AM EDT SPIRITUAL CARE DEPARTMENT - [facility] Emergency/Trauma Note PATIENT NAME: Felisa Jones Shift date: 02/13/2023 Shift day: Wednesday Shift # 3 Room # TRAUMA B Name: Felisa Jones Age: 37 y.o. Gender: female Sikh: Unknown Place of denominational: Unknown Trauma/Incident type: Adult Trauma Priority Admit Date & Time: 02/14/2023 12:28 AM TRAUMA NAME: SOWMYA ADVANCE DIRECTIVES IN CHART? No NAME OF DECISION MAKER: Unknown RELATIONSHIP OF DECISION MAKER TO PATIENT: Unknown PATIENT/EVENT DESCRIPTION: Felisa Jones is a 37 y.o. female who arrived via [facility] to TRAUMA B and was paged out as an Adult Trauma Priority due to a Fall. Patient arrived with +ETOH. Patient was altered while business development sales executive was present in room. Pt to be admitted to 1024/1024-01. SPIRITUAL [id number]: Front Of House Manager responded to page and gathered patient information outside room. Front Of House Manager shared patient'sinformation with ED Registration. Patient's next of kin was not able to be identified. Front Of House Manager located patient's emergency contact from patient's cell phone, her sister, Lottie Schrader, ([phone]). Front Of House Manager made several attempts to contact her sister, with no success. Front Of House Manager later reached patient's sister utilizing patient's cell phone. Front Of House Manager facilitated medical update for patient's sister, by phone, as she resides in [place]. Front Of House Manager shared unit phone number and shared patient's TICU room number. Patient's teenage daughter, Thu ([phone]), was also included in call. Patient's sister thanked business development sales executive for call and support. Front Of House Manager shared patient's sister's information with patient's bedside nurse. PATIENT BELONGINGS: With patient ANY BELONGINGS OF SIGNIFICANT VALUE NOTED: N/A REGISTRATION STAFF NOTIFIED? Yes WHAT IS YOUR SPIRITUAL CARE PLAN FOR THIS PATIENT?: Chaplains can make follow-up visit, per request. Chaplains can be reached 15/03 via EpicTopic. 02/14/23 0058 Encounter Summary Service Provided For: [...] (comment) (as needed) . Spiritual Care Department [facility] [phone] [facility] Discharge instructions* Discharge Instructions* Karen Watkins RN - 02/15/2023 11:04 AM EDT Images from the original note were not included. Head Injury Discharge Instructions Thank you for choosing [facility] for your recovery needs. The following instructions will help to ensure your comfort and that you are wellprepared for your recovery. Follow-up Visit: The office is located at: [facility] [address] [place] [address], [address], [place] [address] [x] Please have a CT scan of [...] medications. YOU SHOULD CALL THE OFFICE AT [phone] IF YOU HAVE ANY OF THE FOLLOWING: [...] the [facility] at [phone]. This center offers additional therapy, support groups, education and other resources at no cost. The center is located at [address] [place] [address]. You can also visit www.tbirc.org for more information. For resources transitioning back to the community following your trauma, visit [email or web address] General questions or concerns please call the Trauma and General Surgery Clinic at [phone]. If needed, the clinic fax number is [phone]. Trauma is a life-threatening condition. Your doctor [...] Extended Emergency Contact Information Primary Emergency Contact: Lottie Schrader Mobile Relation: Brother/Sister Secondary Emergency Contact: Mary Lara Mobile Relation: Parent Past Surgical History: No past surgical history on file. Immunization History: There is no immunization history on file for this patient. Active Problems: Patient Active Problem List Diagnosis Code SDH (subdural hematoma) ([facility]) S06.5XAA Fall W19.XXXA Isolation/Infection: Isolation No Isolation [...] Assisted Dressing Independent Toileting Assisted Feeding Independent Cork Compounder Independent Med Delivery whole Wound Care Documentation [...] Readmission: 5 Discharging to Facility/ Agency Name: [facility] Address: Phone: Fax: Dialysis Facility (if applicable) Name: Address: Dialysis Schedule: Phone: Fax: Brick Maker/Director Consumer signature: PHYSICIAN SECTION Prognosis: Good Condition at [...] H&P PHYSICIAN SIGNATURE: documented in [facility] Discharge instructions Patient Education 12/22/2022 12:05:29 Influenza, Adult, Hgfo-gt-Enpe Influenza, Adult Influenza is also called the [...] Your doctor may want you to: Take dbhp-ple-pbyxpri medicines. Drink plenty of fluids. The flu [...] foods include: ?Bananas. ?Applesauce. ?Rice. ?Lean meats. ?[place]. ?Crackers. Do not eat or drink: ?Fluids that have a lot of sugar or caffeine. ?Alcohol. ?Spicy or fatty foods. General instructions Take gsti-wtg-shmgoys and prescription medicines only as told by [...] use soap and water, use alcohol-based hand billing manager. Keep all follow-up visits. How is this [...] spreads easily from person to person. Take mogf-zbm-yumjzds and prescription medicines only as told by your doctor. Getting a flu shot every year is the best way to not get the flu. This information is not intended to replace advice given to you by your health care provider. Make sure you discuss any questions you have with your health care provider. Document Revised: 03/28/2021 Document Reviewed: 03/28/2021 Vital Therapies Patient Education 2022 Ge.tt. Follow Up Care 09/24/2022 09:32:17 With:DANELLE MOREJON FAAFP, Valdemar Gacria, DIANNE, PED Address: [address] [place] [address] [place] [address]- When:Within 3 Month(s) [facility] 04-30-2023 Evaluation note* Encounter Date [...] treatment plan. Patient left in stable condition. Mydeo Other 02-02-2023 Hospital Discharge instructions Patient Education [...] primary care provider or a mental health manager intensive care unit. Your health care provider may use a [...] Behavioral management. You may work with a assistant football coach who is specially trained to help people with ADHD manage and organize activities and function more effectively. Follow these instructions at home: Medicines Take eehq-nqc-lclxrnp and prescription medicines only as told by [...] Attention Deficit Disorder Association (ADDA): www.add.org [place] of Mental Health (NIMH): www.nimh.nih.gov Contact a [...] 03/31/2018 Document Revised: 01/01/2020 Document Reviewed: 01/01/2020 Vital Therapies Patient Education 2020 Ge.tt. Follow Up Care 06/23/2022 09:45:13 With:DANELLE MOREJON FAAFP, DIANNE Danielle, PED Address: [facility] [place] [address]- When:Within 3 Month(s) [facility] 11-23-2022 Hospital Discharge instructions Patient [...] at home: Medicines Take, use, or apply jush-jse-jtyrewn and prescription medicines only as told by [...] and water are not available, use hand billing manager. Do not smoke. Avoid being around people [...] 08/09/2006 Document Revised: 01/09/2019 Document Reviewed: 01/09/2019 Vital Therapies Patient Education 2020 Ge.tt. Follow Up Care 07/15/2022 12:19:53 With:DANELLE MOREJON FAAFP, DIANNE Danielle, PED Address: [place] [id number]- When: Unknown [facility] 07-21-2022 Hospital Discharge instructions Patient Education 03/12/2022 08:20:14 Recurrent Migraine Headache, Mudv-wb-Xpbb Recurrent Migraine Headache A migraine headache is very bad, throbbing pain that is usually on one side of your head. Recurrentmigraines keep coming back (recurring). Talk with your doctor about what things may bring on (trigger) your migraine headaches. Follow these instructions at home: Medicines Take vibt-cvf-qbhgast and prescription medicines only as told by [...] bring on (trigger) your migraine headaches. Take cgnh-juv-odwtvtv and prescription medicines only as told by [...] 05/18/2009 Document Revised: 08/12/2018 Document Reviewed: 07/02/2017 Vital Therapies Patient Education 2020 Ge.tt. Follow Up Care 12/04/2021 13:53:38 With:Valdemar MCCLENDON DO, FAAFP, DIANNE, PED Address: [place] [address]- When:Within 3 Month(s) [facility] Evaluation + Plan note Future Appointments Appointment Date:03/12/2022 08:00:00 AM Scheduled Provider:Valdemar MCCLENDON DO, FAAFP Location:[facility] Appointment Type:[facility] Evaluation + Plan note Future Appointments Appointment Date:06/19/2022 08:00:00 AM Scheduled Provider:Valdemar MCCLENDON DO, FAAFP Location:[facility] Appointment Type:[facility] Evaluation + Plan note Future Appointments Appointment Date:09/24/2022 09:00:00 AM Scheduled Provider:Valdeamr MCCLENDON DO, FAAFP Location:[facility] Appointment Type:[facility] Primary Care evaluation + Plan note Future Appointments Appointment Date:12/22/2022 11:00:00 AM Scheduled Provider:Valdemar MCCLENDON DO, FAAFP Location:[facility] Appointment Type:[facility] Primary [facility] evaluation + Plan note Future Appointments Appointment Date:04/15/2023 11:00:00 AM Scheduled Provider:Valdemar MCCLENDON DO, FAAFP Location:[facility] Appointment Type:[facility] evaluation + Plan note Future Appointments Appointment Date:04/20/2023 07:00:00 AM Scheduled Provider: [facility] App[facility] Type:PT Vestib/ Concussion 45 (FT) [...] 01:20:00 PM Scheduled Provider:Valdemar MCCLENDON DO, FAAFP [facility] Scheduled Tests Radiology* CT Head or Brain w/o Contrast 04/15/23 [facility] Evaluation + Plan note Future Appointments Appointment Date:10/14/2023 08:40:00 AM Scheduled Provider:Valdemar MCCLENODN DO, FAAFP Location:[facility] Appointment Type:FM Open Future Scheduled Tests Radiology* CT Head or Brain w/o Contrast 04/15/23 [facility] Primary [facility] evaluation + Plan note Future Appointments Appointment Date:01/21/2024 08:40:00 AM Scheduled Provider:Valdemar MCCLENDON DO, FAAFP Location:[facility] Appointment Type:FM Open Future Scheduled Tests Radiology* CT Head or Brain w/o Contrast 04/15/23 [facility] Evaluation + Plan note Future Appointments Appointment Date:04/25/2024 09:40:00 AM Scheduled Provider:Valdemar MCCLENDON DO, FAAFP Location:[facility] Appointment Type:FM Open Future Scheduled Tests Radiology* CT Head or Brain w/o Contrast 04/15/23 [facility] Primary [facility] Evaluation + Plan note Future Appointments Appointment Date:07/31/2024 09:00:00 AM Scheduled Provider:Valdemar MCCLENDON DO, FAAFP Location:[facility] Appointment Type: Open [facility] Evaluation + Plan note Future Appointments Appointment Date:10/31/2024 09:00:00 AM Scheduled Provider:Valdemar MCCLENDON DO, FAAFP Location:[facility] Appointment Type: Open [facility] Primary Care evaluation + Plan note Future Appointments Appointment Date:05/10/2025 03:00:00 PM Scheduled Provider:Valdemar MCCLENDON DO, FAAFP Location:[facility] Appointment Type:FM Open Future Scheduled Tests Laboratory* Thyroid Perox.tpo Ab 02/08/25 * Thyroid Perox.tpo Ab 02/08/25 * HCV Antibody RFX to Quant PCR 10/31/24 * HCV Antibody RFX to Quant PCR 02/08/25 * Basic Metabolic Panel 02/08/25 * CBC w/ Auto Diff 02/08/25 * Hepatic Function Panel 02/08/25 * Lipid Panel 10/31/24 * Lipid Panel 02/08/25 * Thyroid Stimulating Hormone 02/08/25 * Free T4 02/08/25 * TgAb+Thyroglobulin,RACHEL or MAYANK 02/08/25 [facility] Evaluation + Plan note Future Appointments Appointment Date:05/10/2025 03:00:00 PM Scheduled Provider:Valdemar MCCLENDON DO, FAAFP Location:[facility] Appointment Type:FM Open Diagnostic Tests Pending * Thyroid Perox.tpo Ab 02/27/25 * TgAb+Thyroglobulin,RACHEL or MAYANK 02/27/25 * HCV Antibody RFX to Quant PCR 02/27/25 Future Scheduled Tests Laboratory* Thyroid Perox.tpo Ab 02/08/25 * HCV Antibody RFX to Quant PCR 10/31/24 * Hepatic Function Panel 05/23/25 * Lipid Panel 10/31/24 * Thyroid Stimulating Hormone 05/23/25 * Free T4 05/23/25 [facility] evaluation + Plan note Future Appointments Appointment Date:08/17/2025 08:00:00 AM Scheduled Provider:Valdemar MCCLENDON DO, FAAFP Location:[facility] Appointment Type:FM Open Future Scheduled Tests Laboratory* Thyroid Perox.tpo Ab 02/08/25 * HCV Antibody RFX to Quant PCR 10/31/24 * Hepatic Function Panel 05/23/25 * Lipid Panel 10/31/24 * Thyroid Stimulating Hormone 05/23/25 * Free T4 05/23/25 [facility] evaluation note* Diagnosis SDH (subdural hematoma) (HCC)- Primary Subdural hemorrhage Fall, initial encounter SDH (subdural hematoma) (HCC) Subdural hemorrhage Fall Unspecified fall [facility] Diagnosis Syncope and collapse- Primary Syncope and collapse SDH (subdural hematoma) (HCC) Subdural hemorrhage Hygroma Lymphangioma, any site Orthostatic hypotension Falls frequently Personal history of fall [facility] N[facility] - Reported* Type Description Date Medical History asthma Medical History ADHD Medical History depression/anxiety Surgical History t&a Surgical History x2 Surgical History tubal ligation Mydeo Other Hospital course Narrative No data available for this section [facility] Hospital Discharge instructions No data available for this section [facility] Progress note No data available for this section [facility] Summary Purpose Family History No [...] History Records FoundNo Family History Records Found Advance Directives No [...] Diagnoses Syncope and collapse SDH (subdural hematoma) ([facility]) [facility] [address] [place] [address] Referral ID Status Reason Start Date Expiration Date Visits Requested Visits Authorized [id number] Open Patient Preference 03/10/2023 09/06/2023 1 1 Scheduling Instructions Evaluate and Treat Question Answer Reason For External Referral? Patient Preference Comments The patient can be scheduled with any member of the group, including the provider with the first available appointments. Specialty Diagnoses / Procedures Referred By Contac t Referred To Contact Speech Pathology Diagnoses Syncope and collapse SDH (subdural hematoma) ([facility]) [facility] [address] [place] [id number] Referral ID Status Reason Start Date Expiration Date Visits Requested Visits Authorized [id number] Open Patient Preference 03/10/2023 09/06/2023 1 1 Scheduling Instructions Evaluate and Treat for cognition Specialty Diagnoses / Procedures Referred By Contac t Referred To Contact Physical Therapist Diagnoses Syncope and collapse SDH (subdural hematoma) (HCC) [facility] [address] [place], [place] [id number] Referral ID Status Reason Start Date Expiration Date Visits Requested Visits Authorized [id number] Open Patient Preference 03/10/2023 09/06/2023 1 1 Scheduling Instructions Evaluate and Treat for Vestibular Therapy Specialty Diagnoses / Procedures Referred By Contac t Referred To Contact Radiology Diagnoses SDH (subdural hematoma) (HCC) Procedures CT HEAD WO CONTRAST Felisa Schroeder, SILVANA [address] [place] [address] Referral ID Status Reason Start Date Expiration Date V isits Requested Visits Authorized [id number] Pending Review 03/01/2023 02/29/2024 1 1 Additional Source Comments INFORMATION SOURCE (unrecogn ized section and content) DATE CREATED AUTHOR 02/11/2018 [facility] DATE CREATED AUTHOR AUTHOR'S ORGANIZ ATION 10/03/2021 [facility] DATE CREATED AUTHOR AUTHOR'S ORGANIZ ATION 03/05/[address] [facility] DATE CREATED AUTHOR AUTHOR'S ORGANIZ ATION 07/15/2023 [facility] DATE CREATED AUTHOR AUTHOR'S ORGANIZ ATION 07/18/2024 [facility] DATE CREATED AUTHOR AUTHOR'S ORGANIZ ATION 03/03/2025 [facility] DATE CREATED AUTHOR AUTHOR'S ORGANIZ ATION 03/04/2025 [facility] DATE CREATED AUTHOR AUTHOR'S ORGANIZ ATION 03/12/2025 [facility] DATE CREATED AUTHOR AUTHOR'S ORGANIZ ATION 05/12/2025 [facility] Care Team (unrecognized sect ion and content) Personnel Name: Valdemar MCCLENDON DO, FAAFP Address: [address] [place] [address]- Name: Nimisha Ramirez I Name: Chantelle Wasserman Personnel Name: DANELLE GOMEZValdemar A Address: Address: [address] [place] [address]- Name: Nimisha Ramirez I Name: Chantelle Wasserman Personnel Name: D[facility]ELLE MOREJON [facility] Address: Address: [address] [place] [address] Name: Nimisha Ramirez I Name: Chantelle Wasserman Personnel Name: DANELLE MOREJON [facility] Address: Address: [address] [place] [address] Name: Nimisha Ramirez I Name: Chantelle Wasserman Personnel Name: DANELLE [facility]JON [facility] Address: Address: [address] [place] [address]- Name: Nimisha Ramirez I Name: Chantelle Wasserman Personnel Name: DANELLE GOMEZValdemar A Address: Address: [address] [place] [address]- Name: Nimisha Ramirez I Name: Chantelle Wasserman Personnel Name: DANELLE [facility]JON [facility] Address: Address: [address] [place] [address]- Name: Nimisha Ramirez I Name: Chantelle Wasserman Personnel Name: DANELLE MOREJON [facility] Address: Address: [address] [place] [address] Name: Nimisha Ramirez I Name: Chantelle Wasserman Personnel Name: DANELLE [facility]JON [facility] Address: Address: [address] [place] [address] Name: AshleyNimisha Yojana Name: Chantelle Wasserman Personnel Name: DANELLE MOREJON [facility] Address: Address: [address] [place] [address] Name: AshleyNimisha I Name: Chantelle Wasserman Personnel Name: Valdemar MCCLENDON DO, FAAFP A Address: Address: [address] [place] [address] Name: AshleyNimisha Yojana Name: Chantelle Wasserman Personnel Name: DANELLE MOREJON [facility] Address: Address: [address] [place] [address] Name: AshleyNimisha Yojana Name: Chantelle Wasserman Personnel Name: Valdemar MCCLENDON DO, FAAFP A Address: Address: [address] [place] [address] Name: Ashley Nimisha I Name: Chantelle Wasserman Personnel Name: D[facility]ELLE MOREJON [facility] Address: Address: [address] [place] [address] Name: Ashley Nimisha Yojana Name: Chantelle Wasserman Personnel Name: Valdemar MCCLENDON DO, FAAFP Address: [address] [place] [address] Telecom: Name: Nimisha Ramirez I Name: Chantelle Wasserman Personnel Name: D[facility]ELLE MOREJON [facility] Address: [address] [place] [address] Telecom: Name: Nimisha Ramirez I Name: Chantelle Wasserman Personnel Name: DANELLE MOREJON [facility] [facility] Address: [address] [place] [address] Telecom: Name: Nimisha Ramirez I Name: Chantelle Wasserman REASON FOR VISIT (unrecogniz ed section and content) Specialty Diagnoses / Procedures Referred By Contcassie t Referred To Contact Diagnoses SDH (subdural hematoma) (FORMERLY [facility]) Felisa Segura MD [address] [facility] [place] [address] [place] [id number] [facility] [address] [place] [address] Referral ID Status Reason Start Date Expiration Date Visits Re quested Visits Authorized [id number] 1 1 Reason Comments Fall Dizziness Specialty Diagnoses / Procedures Referred By Contac t Referred To Contact Diagnoses Syncope and collapse SDH (subdural hematoma) ([facility]) David Herrera MD [address] [place] [address] [facility] [address] [place] [address] Referral ID Status Reason Start Date Expiration Date Visits Re quested Visits Authorized [id number] 1 1 Ordered Prescriptions (unrec ognized section [...] 5 MG immediate release tabletIndications:SDH (subdural hematoma) ([facility]) Take 1 tablet by mouth every 8 [...] procedure. 0834 (Given - Provider: Chantelle Vega RN)2057 (Given - Provider: Jyotsna Martines RN) 08 (Given - Provider: Chantelle Vega RN)2143 (Given - Provider: Jyotsna Martines RN) 0825 (Given - Provider: Linda Drake RN)2100 (Due) ibuprofen (ADVIL;MOTRIN) tablet 400 mg 400 mg, Oral, 4 TIMES DAILY WITH MEALS & NIGHTLY, First dose (after last modification) on Wed02/17/23 at 1700, Until Discontinued 0834 (Given - Provider: Chantelle Vega RN)1240 (Given - Provider: Chantelle Vega RN)1712 (Given - Provider: Chantelle Vega RN)2058 (Given - Provider: Jyotsna Martines RN) 08 (Given - Provider: Chantelle Vega RN)131 (Given - Provider: Chantelle Vega RN)172 (Given - Provider: Chantelle Vega RN)214 (Given - Provider: Jyotsna Martines RN) 08 (Given - Provider: Linda Drake RN)115 (Given - Provider: Linda Drake RN)1700 (Due)2099 (Due) levETIRAcetam (KEPPRA) tablet 500 mg (COMPLETED) 500 mg, Oral, 2 TIMES DAILY, 14 doses, First dose on Wed02/15/23 at 1200, Last dose on 02/21/23 at 2100, Do not crush or chew. 0834 (Given - Provider: Chantelle Vega RN)2099 (Given - Provider: Jyotsna Martines RN) 08 (Given - Provider: Chantelle Vega RN)2143 (Given - Provider: Jyotsna Martines RN) sertraline [...] taste. 0834 (Given - Provider: Chantelle Vega RN)2058 (Given - Provider: Jyotsna Martines RN) 08 (Given - Provider: Chantelle Vega RN)214 (Given - Provider: Jyotsna Martines RN) 0824 (Given - Provider: Linda Drake RN)2100 [...] 0834 (Given - Provider: Chantelle Vega RN) 08 (Given - Provider: Chantelle Vega RN) Scheduled Medication Order 03/08/2023 03/09/2023 03/10/2023 0.9 % sodium chloride bolus (COMPLETED) 1,000 mL, IntraVENous, at 495.9 mL/hr, Administer over 121 Minutes, ONCE, On Wed03/09/23 at 1930, For 1 dose 1948 (New Bag - Provider: Harriet Medina, RN)2229 (Stopped - Provider: Johanna Rosa, BHUMI) acetaminophen (TYLENOL) tablet 1,000 mg 1,000 mg, [...] Reason: Patient/family refused)0442 (Given - Provider: Johanna Rosa RN)1247 (Given - Provider: Lorena Soto, BHUMI)2200 (Due) diphenhydrAMINE (BENADRYL) injection 25 mg (COMPLETED) 25 mg, IntraVENous, ONCE, 1 dose, On Wed03/09/23 at 0830, IV Push at rate not to exceed 25 mg/min. 0825 (Given - Provider: Brent De Santiago, BHUMI) fentaNYL (SUBLIMAZE) injection 50 mcg (COMPLETED) 50 [...] RN)1223 (Given - Provider: Brent De Santiago, BHUMI)2106 (Given - Provider: Harriet Medina, RN) 0440 (Given - Provider: Johanna Rosa, BHUMI)1252 (Given - Provider: Lorena oSto, BHUMI)2030 (Due) methocarbamol (ROBAXIN) tablet 750 mg 750 mg, Oral, EVERY 6 HOURS, First dose on Wed03/09/23 at 0430, Until Discontinued 0508 (Given - Provider: Pardeep Turner RN)1223 (Given - Provider: Brent De Santiago RN)1630 (Due)2106 (Given - Provider: Harriet Medina, RN) 0440 (Given - Provider: Johanna Rosa, BHUMI)0939 (Given - Provider: Lorena Soto, BHUMI)1557 (Given - Provider: Lorena Soto, BHUMI)2230 (Due) polyethylene glycol (GLYCOLAX) packet 17 g 17 g, Oral, DAILY, First dose on Wed03/09/23 at 0900, Until Discontinued 0726 (Not Given - Provider: Brent De Santiago [...] Midline or Central Line = 20 mL/lumen 0727 (Not Given - Provider: Brent De Santiago RN - Reason: Other)2208 (Not Given - Provider: Johanna Rosa RN - Reason: IV Fluid Infusing) 0940 (Given - Provider: Lorena Soto, BHUMI)2100 (Due) PRN Medication Order 03/08/2023 03/09/2023 03/10/2023 [...] Medina RN) 0938 (Given - Provider: Lorena Soto, BHUMI)1556 (Given - Provider: Lorena Soto, BHUMI) senna (SENOKOT) tablet 8.6 mg 8.6 mg [...] BE BASED ON THE PRIMARY CLINICAL RECORDS. [email or web address] [facility]. provides no warranty or guarantee of the accuracy or completeness of information in this document.
[2025-05-28 07:17] VITALS: BP 125/79; PULSE 74; TEMP 36.5; O2SAT 100
[2025-05-28] MEDS: 0.9 % SODIUM CHLORIDE 500 ML IV (07:39)
[2025-05-28] MEDS: BUPIVACAINE HCL 0.25% PF 25 MG/10 ML VIAL 4 ML INJ (07:57)
[2025-05-28] MEDS: 0.9 % SODIUM CHLORIDE 10 ML SYRINGE - SALINE FLUSH 5 ML INJ (07:57)
[2025-05-28] MEDS: DEXAMETHASONE SOD PHOS 10 MG/ML VIAL INJ (07:58)
[2025-05-28] MEDS: IOHEXOL 240 MG/ML - 50 ML VIAL INJ (07:58)
[2025-05-28] MEDS: LIDOCAINE HCL 2% 400 MG/20 ML MDV INJ (07:58)
--- NOTE | 2025-05-28 08:00 | W.PM.PROCNOT ---
Date of procedure: 05/28/25 Pre-op diagnosis: CRPS, left upper extremity, type 1 Post-op diagnosis: same as pre-op Procedure: Procedure: Left stellate ganglion nerve block Medications: Bupivacaine 0.25% 4cc, normal saline 0.9% 5cc, dexamethasone 10mg The patient was seen and examined in the preoperative holding areas where the site was marked.? A written informed consent was obtained and placed on the chart.? The patient was brought to the medical procedures unit and placed in the supine position.? The area overlying the left anterolateral vertebral body of the C6 vertebral element was identified under fluoroscopic guidance.? The area was prepped and draped in usual sterile fashion.? Strict aseptic technique was used throughout.? The C-arm was rotated obliquely until the intervertebral foramen were well-visualized. Lidocaine 1% was used to anesthetize the skin overlying the base of the C7 uncinate process. A 25-gauge 3-1/2 inch Quincke tipped spinal needle was advanced to the above mentioned target point under AP fluoroscopic guidance.? Then Omnipaque dye was injected and verified that no vascular uptake was seen.? Then the above-mentioned aliquot was delivered in 1 mL boluses.? The needle was removed.? The needle insertion site was covered.? The patient tolerated the procedure well and was found suitable for discharge in the company of a responsible adult. Anesthesia: MAC Surgeon: Yaya Johnson Pathology: none sent Condition: stable Disposition: no change
[2025-05-28 08:04] VITALS: BP 109/55; PULSE 69; TEMP 36.2; O2SAT 100
[2025-05-28 08:09] VITALS: BP 112/65; PULSE 64; TEMP 36.2; O2SAT 100
== END 2025-05-28 08:32 | disposition home or self-care (01) ==
PROVIDERS: PCP Family Medicine; Visit Provider Anesthesiology
DX: G90.512 Complex regional pain syndrome I of left upper limb (principal)
CPT/HCPCS: 64510; 77002; J0665; J1100; J2704; Q9966

== ENCOUNTER 2025-06-06 08:03 | Outpatient (OUT) | payer OTHER, SELFPAY ==
--- OUTSIDE RECORDS SUMMARY | 2025-06-06 08:11 | XMS_ITS | CCD ---
Author Organization [facility] Care Team Providers Care Respiratory Supervisor Name Role Phone EITAN LEWIS KORTNEY [...] ble MISC, DR HOFFMAN Primary Care Unavailable DIAEN, JOSLYN Admitting Unavailable DIANE, JOSLYN Attending Unavailable [...] Langston Consulting Unavailable Guicho Mejia Consulting UnavailUmang Oneill Consulting Unavailable Mikaela Sellers Consulting Unavailable Deanna [...] Unavailable Nataly Mullen Consulting Unavailable AFANEH, AMER FELICIA-HAFIZ Admitting Unavail able AFANEH, AMER FELICIA-HAFIZ Consulting Unavail able AFANEH, AMER FELICIA-HAFIZ Attending Unavail able ANA LOREDO Consulting Unavailable DARRIAN CAMPBELL Consulting Unavailable JOAN DAVIS Consulting Unavailable TARA ROCKWELL Consulting Unavailable YARA KING Referring Unavailable YARA KING Referring Unavailable FELISA SEGURA Admitting Unavailable FELISA SEGURA Attending Unavailable RADHIKA DOLAN Consulting Unavailable RENALDO THOMAS Consulting Unavailable VALDEMAR MCCLENDON Primary Care Unavailable SEAN MCKINLEY Attending Whitv Quiana Vergara Primary Care Physician Quiana Skaggs Unavailable Unavailable Valdemar MCCLENDON Attending Unavailable Valdemar MCCLENDON Admitting Unavailable Valdemar MCCLENDON Attending Unavailable KAPALICIA, Valdemar Garcia Attending Unavailable KAPALICIA, Valdemar Garcia Attending Unavailable Valdemar MCCLENDON Admitting Unavailable DANELLE, Valdemar Garcia Attending Unavailable KAPALICIA, Valdemar Garcia Attending Unavailable KAPValdemar VARGAS Attending Unavailable Giedraitis , Andrius Vytautas Attending Unavailable Giedraitis MD, Andrius Vytautas Attending Unavailable Giedraitis MD, Andrius Vytautas Attending Unavailable Giedraitis MD, Andrius Vytautas Attending Unavailable Giedraitis MD, Andrius Vytautas Attending Unavailable Allergies Allergy Classification Reported Allergen(s) Allergy Type Date of Onset Reaction(s) Facility (1 source) Desonide Drug Allergy 4 [facility] Repository (20 sources) cloNIDine; Translations: [clonidine] Drug Allergy Unknown (qualifier value) [facility] (20 sources) corn extract; Translations: [[place]] Drug Allergy Unknown (qualifier value) [facility] (20 sources) Pollen; Translations: [Pollen] Drug allergy Unknown (qualifier value) [facility] (20 sources) Wheat preparation; Translations: [Wheat] Drug Allergy Unknown (qualifier value) [facility] (16 sources) Milk Products 1 Drug allergy Unknown (qualifier value) [facility] Comment on above: MILK NOS (17 sources) busPIRone; Translations: [buspirone] Drug Allergy Other (qualifier value) [facility] Comment on above: [place] like a zombie (17 sources) Adhesive bandage; Translations: [Adhesive Bandage] Allergy to substance Blister of skin AND/OR mucosa (finding) [facility] (1 source) tape adhesive Propensity to adverse reactions Unknown [employer] Other (2 sources) dairy Propensity to adverse reactions Unknown intelloCut [facility] [employer] Other (1 source) adhesive tape/bandaid Allergy to substance (disorder) [employer] (2 sources) Milk Products 2 Drug allergy Unknown (qualifier value) [facility] Comment on above: MILK NOS (3 sources) busPIRone; Translations: [BuSpar] Drug Allergy [facility] Repository (3 sources) Milk Products; Translations: [Milk Products] Propensity to adverse reactions (disorder) [facility] Repository Medications Current Medications Medication Drug Class(es) Dates Sig (Normalized) Sig (Original) acetaminophen 500 mg oral tablet (14 sources) Start: 04-22-2023 take 2 tablets by mouth three times daily as needed for pain Tylenol Extra Strength 500 mg oral tablet 1,000 mg = 2 tab(s), Oral, TID, PRN as needed for pain, # 100 tab(s), Refills(s) 5, Pharmacy: [facility]/pharmacy #[id number], 170, cm, 04/15/23 12:22:00 EDT, [...] :not to exceed 6 doses per day [id number] 200 actuat albuterol 0.09 mg/actuat metered dose inhaler (6 sources) beta2-Adrene rgic Agonist Start: 03-07-2021 take 2 puff(s) by inhalation every four hours for wheezing ProAir HFA 90 mcg/inh inhalation aerosol 2 puff(s), Inhalation, q4hr for wheezing, 8.5 gram, Refill(s) 11, [facility]/pharmacy #[id number], 165, cm, 03/07/21 13:17:00 EDT, [...] Inhalation, q4hr Cough, 18 gm, Refill(s) 11, [facility]/pharmacy #[id number], 170, cm, 08/01/24 9:18:00 EST, Height/Length Dosing, 70.8, kg, 08/01/24 9:18:00 EST, Weight Dosing Start Date: 08/01/24 Status: Ordered Quantity: 18.0 Unit: g Repeat number: 12 Start: 08-01-2024 take 2 puff(s) by in halation every four hours Albuterol (Eqv-ProAir HFA) 90 mcg/inh inhalation aerosol 2 puff(s), Inhalation, q4hr Cough, 18 gm, Refill(s) 11, [facility]/pharmacy #[id number], 170, cm, 08/01/24 9:18:00 EST, Height/Length Dosing, 70.8, kg, 08/01/24 9:18:00 EST, Weight Dosing Start Date: 08/01/24 Status: Ordered Start: 12-22-2022 take 2 puff(s) by in halation every four hours Albuterol (Eqv-ProAir HFA) 90 mcg/inh inhalation aerosol 2 puff(s), Inhalation, q4hr Cough, 18 gm, Refill(s) 11, [facility]/pharmacy #[id number], 170, cm, 12/22/22 11:14:00 EDT, [...] day(s), # 20 tab(s), Refills(s) 0, Pharmacy: [facility]/pharmacy #[id number], 170, cm, 09/24/22 8:58:00 EST, [...] breakfast and lunch, [id number], 170, cm, 10/31/24 9:08:00 EDT, Height/Length Dosing, 72.8, kg, 10/31/24 9:08:00 EDT, Weight Dosing Start Date: 01/02/25 Status: Ordered Quantity: 60.0 Unit: tab(s) Repeat number: 1 Indications: Attention-deficit hyperactivity disorder, predominantly inattentive type; Start: 07-25-2024 Adderall 30 mg oral tablet 30 mg, 1 tab(s), Oral, BID, 60 tab(s), Refill(s) 0, 30 day supply with breakfast and lunch, [id number], 170, cm, 05/02/24 10:34:00 EDT, Height/Length Dosing, 69.4, kg, 05/02/24 10:34:00 EDT, Weight Dosing Start Date: 07/25/24 Status: Ordered Start: 05-02-2024 Adderall 30 mg oral tablet 30 mg, 1 tab(s), Oral, BID, 60 tab(s), Refill(s) 0, 30 day supply with breakfast and lunch, [id number], 170, cm, 05/02/24 10:34:00 EDT, Height/Length [...] 30 day supply with breakfast and lunch, [facility]/pharmacy #[id number], 170, cm, 10/14/23 9:03:00 EST, Height/Length Dosing, 75.3, kg, 10/14/23 9:03:00 EST, Weight Dosing Start Date: 11/04/23 Status: Ordered Start: 09-23-2023 Adderall 30 mg oral tablet 30 mg, 1 tab(s), Oral, BID, 60 tab(s), Refill(s) 0, 30 day supply with breakfast and lunch, [facility]/pharmacy #[id number], 170, cm, 07/09/23 13:24:00 EST, Height/Length Dosing, 78.1, kg, 07/09/23 13:24:00 EST, Weight Dosing Start Date: 09/23/23 Status: Ordered Start: 07-09-2023 Adderall 30 mg oral tablet 30 mg, 1 tab(s), Oral, BID, 60 tab(s), Refill(s) 0, 30 day supply with breakfast and lunch, [facility]/pharmacy #[id number], 170, cm, 07/09/23 13:24:00 EST, [...] oral solution (1 source) alpha-Adrenergic Agonist, Uncompetitive U-ibyitb-Z-aspartate Receptor Antagonist, Sigma-1 Agonist Start: 12-20-2022 take 10 mL by mouth every six hours Mwwqzkaix-Cpzknwpa-DH 30-2-10 MG/5ML 10 mL Orally every 6 hours for 5 days Nov, Active 120 actuat budesonide 0.18 mg/actuat dry powder inhaler (8 sources) Corticosteroid Start: 11-26-2023 take 2 puff(s) by inhalation twice daily Pulmicort Flexhaler 180 mcg/inh Powder = 2 puff(s), Inhalation, BID, # 1 EA, Refills(s) 11, Pharmacy: [facility]/pharmacy #[id number], 170, cm, 11/26/23 8:20:00 EDT, [...] TID, # 90 tab(s), Refills(s) 5, Pharmacy: [facility]/pharmacy #[id number], 170, cm, 10/31/24 9:08:00 EDT, Height/Length Dosing, 72.8, kg, 10/31/24 9:08:00 EDT, Weight Dosing Start Date: 10/31/24 Status: Ordered Quantity: 90.0 Unit: tab(s) Repeat number: 6 Start: 05-19-2024 take 1 tablet by janie three times daily busPIRone 5 mg Tab See Instructions, TAKE 1 TABLET BY MOUTH THREE TIMES A DAY, # 270 tab(s), Refills(s) 1, Pharmacy: [id number], 170, cm, 05/02/24 10:34:00 EDT, Height/Length Dosing, 69.4, kg, 05/02/24 10:34:00 EDT, Weight Dosing Start Date: 05/19/24 Status: Ordered Start: 01-21-2024 take 1 tablet by janie three times daily busPIRone 5 mg Tab 5 mg = 1 tab(s), Oral, TID, # 90 tab(s), Refills(s) 5, [id number], 170, cm, 01/21/24 9:11:00 EDT, Height/Length Dosing, 74.4, kg, 01/21/24 9:11:00 EDT, Weight Dosing Start Date: 01/21/24 Status: Ordered Start: 05-09-2021 take 1 tablet by [facility] twice daily busPIRone 30 mg oral tablet 30 mg = 1 tab(s), Oral, BID, # 60 tab(s), Refills(s) 5, [id number], 165, cm, 05/09/21 9:54:00 EDT, Height/Length [...] symptoms, # 90 cap(s), Refills(s) 3, [id number], 165, cm, 05/09/21 9:54:00 EDT, Height/Length [...] Daily, # 90 tab(s), Refills(s) 1, Pharmacy: [facility]/pharmacy #[id number], 170, cm, 01/21/24 9:11:00 EDT, [...] bedtime), # 90 tab(s), Refills(s) 4, Pharmacy: [facility]/pharmacy #[id number], 170, cm, 05/02/24 10:34:00 EDT, [...] bedtime), # 90 tab(s), Refills(s) 3, Pharmacy: [facility]/pharmacy #[id number], 170, cm, 01/21/24 9:11:00 EDT, Height/Length Dosing, 74.4, kg, 01/21/24 9:11:00 EDT, Weight Dosing Start Date: 01/21/24 Status: Ordered Flonase 0.05 mg/inh nasal sp ray (2 sources) Start: 09-03-2021 Flonase 0.05 m g/inh nasal spray 2 spray(s), Nasal, Daily, 16 gram, Refill(s) 0, each nostril, [facility]/pharmacy #[id number], 165, cm, 08/12/21 8:54:00 EST, [...] hours on and 12 hours off daily, [facility]/pharmacy #[id number], 170, cm, 04/15/23 12:22:00 EDT, Height/Length Dosing, 75.3, kg, 04/15/23 12:22:00 EDT, Weight Dosing Start Date: 04/15/23 Status: Ordered loratadine 10 mg oral tablet (19 sources) Start: 01-21-2024 take 1 tablet by mouth once daily Claritin 10 mg Tab 10 mg = 1 tab(s), Oral, Daily, # 30 tab(s), Refills(s) 3, [id number], 170, cm, 01/21/24 9:11:00 EDT, Height/Length [...] Daily, # 30 tab(s), Refills(s) 3, [id number], 170, cm, 07/09/23 13:24:00 EST, Height/Length [...] Spasm, # 60 tab(s), Refills(s) 3, [id number], 170, cm, 02/08/25 13:32:00 EDT, Height/Length [...] Spasm, # 60 tab(s), Refills(s) 3, [facility], 170, cm, 02/08/25 13:32:00 EDT, Height/Length [...] Spasm, # 60 tab(s), Refills(s) 3, [id number], 170, cm, 05/02/24 10:34:00 EDT, Height/Length Dosing, 69.4, kg, 05/02/24 10:34:00 EDT, Weight Dosing Start Date: 05/02/24 Status: Ordered Quantity: 60.0 Unit: tab(s) Repeat number: 4 Indications: Muscle spasm of back; Start: 04-02-2023 take 1 tablet by janie th four times daily methocarbamol 500 mg Tab 500 mg = 1 tab(s), Oral, QID, # 100 tab(s), Refills(s) 0, Pharmacy: [facility]/pharmacy #[id number], 170, cm, 03/12/23 14:43:00 EDT, [...] q4hr for wheezing, 8.5 gram, Refill(s) 11, [facility]/pharmacy #[id number], 165, cm, 03/07/21 13:17:00 EDT, Height/Length Dosing, 70, kg, 03/07/21 13:17:00 EDT, Weight Dosing Start Date: 03/07/21 Status: Ordered sennosides, custodial 8.6 mg oral tablet (1 source) Start: 03-09-2023 senna (SENOKOT ) tablet 8.6 mg sertraline 100 mg oral tablet (12 sources) Serotonin Reuptake Inhibitor Start: 07-09-2023 take 1 tablet by mouth once daily Zoloft 100 mg Tab 100 mg = 1 tab(s), Oral, Daily, # 90 tab(s), Refills(s) 3, Pharmacy: [facility]/pharmacy #[id number], 170, cm, 07/09/23 13:24:00 EST, Height/Length Dosing, 78.1, kg, 07/09/23 13:24:00 EST, Weight Dosing Start Date: 07/09/23 Status: Ordered Start: 02-14-2023 sertraline (ZO LOFT) tablet 25 mg Start: 06-23-2022 take 1 tablet by janie th once daily Zoloft 100 mg Tab 100 mg = 1 tab(s), Oral, Daily, # 90 tab(s), Refills(s) 3, Pharmacy: [facility]/pharmacy #[id number], 170, cm, 07/15/22 12:42:00 EST, Height/Length Dosing, 63.2, kg, 07/15/22 12:42:00 EST, Weight Dosing Start Date: 09/08/22 Status: Ordered Zoloft Active topiramate 100 mg oral tablet (11 sources) Start: 11-16-2024 take 1 tablet by mouth once daily topiramate 100 mg Tab See Instructions, TAKE 1 TABLET BY MOUTH EVERY DAY, # 90 tab(s), Refills(s) 1, Pharmacy: [id number], 170, cm, 10/31/24 9:08:00 EDT, Height/Length Dosing, 72.8, kg, 10/31/24 9:08:00 EDT, Weight Dosing Start Date: 11/16/24 Status: Ordered Quantity: 90.0 Unit: tab(s) Repeat number: 1 Start: 11-26-2023 take 1 tablet by janie th once daily topiramate 100 mg Tab See Instructions, TAKE 1 TABLET BY MOUTH EVERY DAY, # 90 tab(s), Refills(s) 1, Pharmacy: [id number], 170, cm, 05/02/24 10:34:00 EDT, Height/Length Dosing, [...] puff(s), Inhalation, Daily, 28 blister(s), Refill(s) 4, [facility]/pharmacy #[id number], 170, cm, 12/22/22 11:14:00 EDT, Height/Length Dosing, 68.7, kg, 12/22/22 11:14:00 EDT, Weight Dosing Start Date: 12/22/22 Status: Ordered Start: 06-23-2022 take 1 puff(s) by in halation once daily Trelegy Ellipta 200 mcg-62.5 mcg-25 mcg/inh inhalation powder 1 puff(s), Inhalation, Daily, 28 blister(s), Refill(s) 0, [facility], 165, cm, 06/23/22 9:09:00 EDT, [...] nasal route twice daily Flonase 0.05 mg/inh [place] 50 mcg, 1 spray(s), Nasal, BID, 15.8 mL, Refill(s) 5, each nostril, [facility]/pharmacy #[id number], 170, cm, 01/21/24 9:11:00 EDT, Height/Length Dosing, 74.4, kg, 01/21/24 9:11:00 EDT, Weight Dosing Start Date: 03/28/24 Status: Ordered Quantity: 15.8 Unit: mL Repeat number: 6 Start: 09-24-2022 take 15.8 mL nasal r oute twice daily Flonase 0.05 mg/inh [place] 50 mcg, 1 spray(s), Nasal, BID, 15.8 mL, Refill(s) 5, each nostril, [facility]/pharmacy #[id number], 170, cm, 09/24/22 8:58:00 EST, Height/Length Dosing, 65, kg, 09/24/22 8:58:00 EST, Weight Dosing Start Date: 09/24/22 Status: Ordered Start: 09-03-2021 Flonase 0.05 m g/inh nasal spray 2 spray(s), Nasal, Daily, 16 gram, Refill(s) 0, each nostril, [facility]/pharmacy #[id number], 165, cm, 08/12/21 8:54:00 EST, Height/Length Dosing, 68.1, kg, 08/12/21 8:54:00 EST, Weight Dosing Start Date: 09/03/21 Status: Ordered Start: 03-07-2021 take 2 puff(s) by in halation twice daily Flovent HFA 110 Aerosol = 2 puff(s), Inhalation, BID, # 12 gram, Refills(s) 11, Pharmacy: [facility]/pharmacy #[id number], 165, cm, 03/07/21 13:17:00 EDT, Height/Length Dosing, 70, kg, 03/07/21 13:17:00 EDT, Weight Dosing Start Date: 03/07/21 Status: Ordered Start: 03-07-2021 take 2 puff(s) by in halation twice daily Flovent HFA 110 Aerosol = 2 puff(s), Inhalation, BID, # 12 gram, Refills(s) 11, Pharmacy: [facility]/pharmacy #[id number], 165, cm, 03/07/21 13:17:00 EDT, [...] sources) Serotonin-3 Receptor Antagonist Start: 023 End: 023 ondansetron (ZOFRAN) tablet 4 mg Start: 02-18-2023 ondansetron (Z OFRAN) injection 4 mg polyethylene glycol [id number] mg powder for oral solution (5 sources) [...] [Subluxation of radial head] 05-09-2021 Episodic Lymphadenitis (18 sources) Anterior cervical lymphadenopathy [...] mg Tab) fluticasone nasal (Flonase 0.05 mg/inh [place]) methocarbamol (Robaxin-750 oral tablet) topiramate (topiramate 100 [...] EST With: Valdemar MCCLENDON DO, FAAFP Where: [facility] [address] [place] [address] [place] [address]- You Need to Schedule the Following Appointments Follow Up with DANELLE MOREJON FAAFP, Valdemar Garcia, DIANNE, PED When: In 3 months Where: [address], [place] [address]- Medications What How Much When Why Instructions Unchanged amphetamine-dextroamphetamin e (Adderall 30 mg oral tablet) 1 Tablets By Mouth 2 times a day ADHD (attention deficit hyperactivity disorder), inattentive type 30 day supply with breakfast and lunch dx. F90.[address] Danelle TREJO reviewed Pickup at [facility]/pharmacy #[id number] Unchanged acetaminophen (Tylenol Extra Strength 500 mg [...] Unchanged fluticasone nasal (Flonase 0.05 mg/ inh [place]) 1 Sprays Nasal Inhalation 2 times a [...] physician if questions or concerns Pharmacy Information [facility]/pharmacy #[id number]: [address], [place] [phone] Allergies CloNIDine HCl (Unknown) Pollen (Unknown) Adhesive Bandage (Blister) BuSpar (Other) [place] (Unknown) Milk Products (Unknown) Wheat (Unknown) Problems [...] problem t (more content not included)... Normal [facility] Noteon 05-10-2025 Family [...] followed by pain management. Discussed disability and [place] getting clean and NA meetings he goes [...] left upper limb) Lyrica per pain management Yaakov Orthopedic surgery also following On total temporary [...] Filling in for Dr. Danelle TREJO reviewed, [facility]/pharmacy #[id number], 170, cm, 05/10/25 15:14:00 EDT, Height/Length [...] bedtime), # 90 tab(s), Refills(s) 4, [id number], 170, cm, 05/02/24 10:34:00 EDT, Height/Length Dosing, 69.4, kg, 05/02/24 10:34:00 EDT, Weight Dosing loratadine, 10 mg = 1 tab(s), Oral, Daily, # 30 tab(s), Refills(s) 3, [id number], 170, cm, 01/21/24 9:11:00 EDT, Height/Length Dosing (more content not included)... Normal [facility] Comment on above: Result Comment: Elec tronically Signed By: DANELLE MOREJON FAAFP, Valdemar Garcia\.jeffrey\Date and Time Signed: 05/10/25 15:41 EDT .Interpretation:on Interpretation: Comment Invalid Interpretation Code [facility] Comment on above: Result Comment: Not infected with HCV unless early or acute infection is suspected (which may be delayed in an immunocompromised individual), or other evidence exists to indicate HCV infection. [facility]formed at: [facility] [address], [place] [id number] PhD Devan Child Performed By: #### 2 [id number] #### [facility] [address] [place] [address] .Thyroglobulin by IMAon 07-0 Thyroglobulin by RACHEL 11.4 ng/mL Invalid Interpretation Code 1.5-38.5 [facility] Comment on above: Result Comment: Acco rding [...] by Naveen Demar Immunometric Assay Performed at: [facility] [address], [place] [id number] PhD Devan Child Performed By: #### 7 [id number] #### [facility] [address] [place] [address] HCV Antibody RFX to Quant PC Ald[place] 02-28-2025 HCV Ab Non-Reactive Invalid Interpretation Code Non Reactive [facility] Comment on above: Result Comment: Perf ormed at: [facility] [address] [place] [id number] PhD Devan Child Performed By: #### 2 [id number] #### [facility] [address] [place] [address] TgAb+Thyroglobulinon 025 Antithyroglb Ab <1.0 Invalid Interpretation Code 0.0-0.9 [facility] Comment on above: Result Comment: Thyr oglobulin Antibody measured by Naveen Paguate Methodology It should be noted that the presence of thyroglobulin antibodies may not be pathogenic nor diagnostic, especially at very low levels. The assay acquisitions logistics analyst has found that four percent of individuals without evidence of thyroid disease or autoimmunity will have positive TgAb levels up to 4 IU/mL. Performed at: [facility] [address], [place] [id number] PhD Devan Child Performed By: #### 7 [id number] #### [facility] [address] [place] [address] Thyroid Perox.tpo Abon 02-28 TPO Ab 9 International_Unit/mL Invalid Interpretation Code 0-34 [facility] Comment on above: Result Comment: Perf ormed at: [facility] [address], [place] [id number] PhD Devan Child Performed By: #### 1 [id number] #### [facility] [address] [place] [address] BMPOrdered By: SYSTEM SYSTEM on 02-27-2025 Anion gap [Moles/Vol] 11 mmol/L Normal 6-16 [facility] Comment on above: Performed By: #### 2 [id number] #### [facility] [address] [place] [address] Calcium [Mass/Vol] 9.3 mg/dL Normal 8.9-11.1 [facility] Comment on above: Performed By: #### 2 [id number] #### [facility] [address] [place] [address] Chloride [Moles/Vol] 105 mmol/L Normal 101-111 [facility] Comment on above: Performed By: #### 2 [id number] #### [facility] [address] [place] [address] CO2 [Moles/Vol] 25 mmol/L Normal 21-31 [facility] Comment on above: Performed By: #### 2 [id number] #### [facility] [address] [place] [address] Creatinine [Mass/Vol] 0.5 mg/dL Normal 0.5-1.3 [facility] Comment on above: Performed By: #### 2 [id number] #### [facility] [address] [place] [address] Glucose [Mass/Vol] 78 mg/dL Normal 55-199 [facility] Comment on above: Performed By: #### 2 [id number] #### [facility] [address] [place] [address] Potassium [Moles/Vol] 4.1 mmol/L Normal 3.5-5.3 [facility] Comment on above: Performed By: #### 2 [id number] #### [facility] [address] [place] [address] Sodium [Moles/Vol] 137 mmol/L Normal 135-145 [facility] Comment on above: Performed By: #### 2 [id number] #### [facility] [address] [place] [address] Urea nitrogen [Mass/Vol] 10 mg/dL Normal 5-21 [facility] Comment on above: Performed By: #### 2 [id number] #### [facility] [address] [place] [address] BMPon 02-27-2025 BUN/Creat Ratio 20 No Units Normal 10-20 [facility] Comment on above: Performed By: #### 2 [id number] #### [facility] [address] [place] [address] CBC w/ Auto Diffon 5 Basophil Absolute 0.0 E9/L Normal 0.0-0.2 [facility] Comment on above: Performed By: #### 2 [id number] #### [facility] [address] [place] [address] Eos Absolute 0.1 E9/L Normal 0.0-0.5 [facility] Comment on above: Performed By: #### 2 [id number] #### [facility] [address] [place] [address] Lymph Absolute 1.4 E9/L Normal 1.0-4.0 [facility] Comment on above: Performed By: #### 2 [id number] #### [facility] [address] [place] [address] [place] Absolute 0.3 E9/L Normal 0.2-1.0 [facility] Comment on above: Performed By: #### 2 [id number] #### [facility] [address] [place] [address] Neutro Absolute 2.6 E9/L Normal 2.0-7.5 [facility] Comment on above: Performed By: #### 2 [id number] #### [facility] [address] [place] [address] Neutro Auto 59.1 % Normal 36.0-75.0 [facility] Comment on above: Performed By: #### 2 [id number] #### [facility] [address] [place] [address] Platelet 307.0 E9/L Normal 150.0-500. 0 [facility] Comment on above: Performed By: #### 2 [id number] #### [facility] [address] [place] [address] RBC 4.7 E12/L Normal 4.3-5.9 [facility] Comment on above: Performed By: #### 2 [id number] #### [facility] [address] [place] [address] WBC 4.4 E9/L Normal 4.0-11.0 [facility] Comment on above: Performed By: #### 2 [id number] #### [facility] [address] [place] [address] CBC w/ Auto DiffOrdered By: SYSTEM SYSTEM on 02-27-2025 Basophils/100 WBC (Bld) 0.6 % Normal 0.0-2.0 [facility] Comment on above: Performed By: #### 2 [id number] #### [facility] [address] [place] [address] Eosinophils/100 WBC (Bld) 3.1 % Normal 0.0-8.0 [facility] Comment on above: Performed By: #### 2 [id number] #### [facility] [address] [place] [address] Erythrocyte distribution width (RBC) [Ratio] 15.6 % High 10.9-14.2 [facility] Comment on above: Performed By: #### 2 [id number] #### [facility] [address] [place] [address] Hematocrit (Bld) [Volume fraction] 40.3 % Normal 34.0-46.0 [facility] Comment on above: Performed By: #### 2 [id number] #### [facility] [address] [place] [address] Hemoglobin (Bld) [Mass/Vol] 13.5 g/dL Normal 12.0-16.0 [facility] Comment on above: Performed By: #### 2 [id number] #### [facility] [address] [place] [address] Lymphocytes/100 WBC (Bld) 30.9 % Normal 14.0-50.0 [facility] Comment on above: Performed By: #### 2 [id number] #### [facility] [address] [place] [address] MCH (RBC) [Entitic mass] 28.8 pg Normal 27.0-34.0 [facility] Comment on above: Performed By: #### 2 [id number] #### [facility] [address] [place] [address] MCHC (RBC) [Mass/Vol] 33.5 g/dL Normal 31.4-36.0 [facility]e Comment on above: Performed By: #### 2 [id number] #### [facility] [address] [place] [address] MCV (RBC) [Entitic vol] 85.9 fL Normal 80.0-100.0 [facility] Comment on above: Performed By: #### 2 [id number] #### [facility] [address] [place] [address] Monocytes/100 WBC (Bld) 6.3 % Normal 4.0-14.0 [facility] Comment on above: Performed By: #### 2 [id number] #### [facility] [address] [place] [address] Platelet mean volume (Bld) [Entitic vol] 8.6 fL Normal 6.4-10.8 [facility]e Comment on above: Performed By: #### 2 [id number] #### [facility] [address] [place] [address] CHEMISTRYOrdered By: SYSTEM SYSTEM on 02-27-2025 ALP [...] Normal 10 - 20 Remisol Chem Free [id number] By: SYSTEM [employer] on 02-27-2025 Free T4 [Mass/Vol] 0.57 ng/dL Low 0.58-1.64 Remiso l Chem Comment on above: Performed By: #### 2 [id number] #### [facility] [address] [place] [address] HEMATOLOGYOrdered By: [employer] SYSTEM on 02-27-2025 Basophils/Leukocyte s Auto (Bld) [...] E9/L Remisol Heme Hep Func PanelOrdered By: [employer] SYSTEM on 02-27-2025 Albumin [Mass/Vol] 4.5 g/dL Normal 3.3-5.0 Remiso l Chem Comment on above: Performed By: #### 2 389488 #### [facility] [address] [place] [address] Albumin/Globulin [Mass ratio] 1.3 {ratio} Normal 1.1-2.2 [facility] Chem Comment on above: Performed By: #### 2 262865 #### [facility] [address] [place] [address] Globulin (S) [Mass/Vol] 3.5 g/dL Normal 1.4-4.0 [facility] Chem Comment on above: Performed By: #### 2 333384 #### [facility] [address] [place] [address] Protein [Mass/Vol] 8.0 g/dL High 6.0-7.8 Remiso l Chem Comment on above: Performed By: #### 2 834748 #### [facility] [address] [place] [address] Hep Func Panelon 02-27-2025 Alk Phos 68 Int._Unit/L Normal 21-98 [facility] Comment on above: Performed By: #### 2 293649 #### [facility] [address] [place] [address] ALT 16 Int._Unit/L Normal 6-46 [facility] Comment on above: Performed By: #### 2 657244 #### [facility] [address] [place] [address] AST 14 Int._Unit/L Normal 5-43 [facility] Comment on above: Performed By: #### 2 678452 #### [facility] [address] [place] [address] Bili Direct 0.0 mg/dL Normal 0.0-0.4 [facility] Comment on above: Performed By: #### 2 577332 #### [facility] [address] [place] [address] Bili Indirect 0.2 mg/dL Normal 0.1-0.9 [facility] Comment on above: Performed By: #### 2 248464 #### [facility] [address] [place] [address] Bili Total 0.2 mg/dL Normal 0.0-1.1 [facility] Comment on above: Performed By: #### 2 896573 #### [facility] [address] [place] [address] Lipid PanelOrdered By: [employer] SYSTEM on 02-27-2025 Cholesterol [Mass/Vol] 226 mg/dL High 120-200 [facility] Chem Comment on above: Performed By: #### 2 988685 #### [facility] [address] [place] [address] Cholesterol in HDL [Mass/Vol] 74 mg/dL Invalid Interpretation Code Remisol Chem Comment on above: Result Comment: '>= 60 LOW RISK' '<= 40 HIGH RISK' Result Comment: '>= 60 LOW RISK' '<= 40 HIGH RISK' Performed By: #### 2 [id number] #### [facility] [address] [place] [address] Cholesterol in LDL [Mass/Vol] 133 mg/dL High <=129 [facility] Chem Comment on above: Performed By: #### 2 494858 #### [facility] [address] [place] [address] Cholesterol in VLDL [Mass/Vol] 22 mg/dL Normal 7-40 [facility] Chem Comment on above: Performed By: #### 2 683146 #### [facility] [address] [place] [address] Triglyceride [Mass/Vol] 109 mg/dL Normal <=149 [facility] Chem Comment on above: Performed By: #### 2 400132 #### [facility] [address] [place] [address] TSHOrdered By: SYSTEM SYSTEM on 02-27-2025 TSH Qn 1.56 m[IU]/L Normal 0.34-5.60 [facility] Chem Comment on above: Performed By: #### 2 008431 #### [facility] [address] [place] [address] eGFRon 02-27-2025 eGFR 122 mL/min/1.73 m2 Normal >=59 [facility] Comment on above: Performed By: #### 1 [id number] #### [facility] [address] [place] [address] Ambulatory Visit Summaryon 0 02-08-2025 Ambulatory Visit Summary Ambulatory Visit Summary FELISA GARCIA :1985 Visit Date:02/08/2025 Ambulatory Visit Instructions Your [...] mg Tab) fluticasone nasal (Flonase 0.05 mg/inh [place]) loratadine (Claritin 10 mg Tab) methocarbamol (Robaxin-750 [...] EDT With: Valdemar MCCLENDON DO, FAAFP Where: [facility] [address], [place] [address]- You Need to Schedule the Following Appointments Follow Up with Valdemar MCCLENDON DO, FAAFP, DIANNE, PED When: In 3 months Where: [address], [place] [address]- You Need to Complete the Following Basic [...] Unchanged fluticasone nasal (Flonase 0.05 mg/ inh [place]) 1 Sprays Nasal Inhalation 2 times a day each nostril Contact prescribing physician if questions or concerns Unchanged loratadine (Claritin 10 mg Tab) 1 Tablets By Mouth Every day Al (more content not included)... Normal [facility] c Noteon 02-08-2025 Family [...] it used to. Ordered: Drug Screen POC 87616 HCV Antibody RFX to Quant PCR 2. [...] to provide these. Ordered: Drug Screen POC 42788 6. Encounter for drug screening (Z02.83: Encounter for blood-alcohol and blood-drug test) pos for amphetamines Ordered: Drug Screen POC 08512 7. BMI 24.0-24.9, adult (Z68.24: Body mass index [BMI] 24.0-24.9, adult) The standard range for ages 18 and older is >=18.5 and < 25 kg/m2. Your BMI today was above this range, this falls in the overweight to obese category and there are medical benefits to weight loss. We can o (more content not included)... Normal [facility] Comment on above: Result Comment: Elec tronically Signed By: Valdemar MCCLENDON DO, FAAFP\.br\Date and Time Signed: 02/08/25 14:14 EDT No Panel Informationon 11-09 Tobacco smoking status Former Tobacco User Invalid Interpretation Code Leapset Ambulatory Visit Summaryon 0 10-31-2024 Ambulatory Visit Summary Ambulatory Visit Summary JustusFELISA JOE :1985 Visit Date:10/31/2024 Ambulatory Visit Instructions Your [...] mg Tab) fluticasone nasal (Flonase 0.05 mg/inh [place]) loratadine (Claritin 10 mg Tab) methocarbamol (Robaxin-750 [...] EDT With: Valdemar MCCLENDON DO, FAAFP Where: [facility] [address] [place], [place] [address]- You Need to Schedule the Following Appointments Follow Up with Valdemar MCCLENDON DO, FAAFP, FAM, PED When: In 3 months Where: [address], [facility] [place] [address]- Medications What How Much When Why Instructions Changed busPIRone (busPIRone 10 mg Tab) 1 Tablets By Mouth 3 times a day Pickup at [facility]/pharmacy #6139 Unchanged amphetamine-dextroamphetamin e (Adderall 30 mg oral tablet) 1 Tablets By Mouth 2 times a day ADHD (attention deficit hyperactivity disorder), inattentive type 30 day supply with breakfast and lunch Pickup at [facility]/pharmacy #6177 Unchanged acetaminophen (Tylenol Extra Strength [...] Unchanged fluticasone nasal (Flonase 0.05 mg/ inh [place]) 1 Sprays Nasal Inhalation 2 times a [...] if questions or concerns Unchanged Misc Prescription ([facility] MELATONIN 5 MG TABLET) TAKE 1 TABLET BY MOUTH AT BEDTIME DAILY Contact prescribing physician if questions or concerns Unchanged topiramate (topiramate 100 mg Tab) See instructions TAKE 1 TABLET BY MOUTH EVERY DAY Contact prescribing physician if questions or concerns Pharmacy Information [facility]/pharmacy #[id number]: [address], [place] [id number] [phone] Allergies CloNIDine HCl (Unknown) Pollen (Unknown) Adhesive Bandage (Blister) BuSpar (Other) Pineland (Unknown) Milk Products (Unknown) Wheat (Unknown) Problems [...] Rhesus isoimmu (more content not included)... Normal [facility] c Noteon 10-31-2024 Family [...] 30 day supply with breakfast and lunch, [facility]/pharmacy #[id number], 170, cm, 10/31/24 9:08:00 EDT, Height/Length [...] helpful resour (more content not included)... Normal [facility] Comment on above: Result Comment: Elec tronically Signed By: Valdemar MCCLENDON DO, FAAFP\.br\Date and Time Signed: 10/31/24 09:39 EDT Ambulatory Visit Summaryon 1 10-02-2023 Ambulatory Visit Summary Ambulatory Visit Summary FELISA GARCIA :1985 Visit Date:08/01/2024 Ambulatory Visit Instructions Your [...] mg Tab) fluticasone nasal (Flonase 0.05 mg/inh [place]) loratadine (Claritin 10 mg Tab) methocarbamol (Robaxin-750 [...] EDT With: Valdemar MCCLENDON DO, FAAFP Where: [facility] [address], [place] [address]- You Need to Schedule the Following Appointments Follow Up with Valdemar MCCLENDON DO, FAAFP, DIANNE, PED When: In 3 months Where: [address], [place] [address]- Medications What How Much When Why Instructions Unchanged albuterol (Albuterol (Eqv-ProAir HFA) 90 mcg/ inh inhalation aerosol) 2 Puffs Inhalation Every 4 hours as needed for Cough Pickup at [facility]/pharmacy #1205 Unchanged acetaminophen (Tylenol Extra Strength 500 mg [...] Unchanged fluticasone nasal (Flonase 0.05 mg/ inh [place]) 1 Sprays Nasal Inhalation 2 times a [...] if questions or concerns Unchanged Misc Prescription ([facility] MELATONIN 5 MG TABLET) TAKE 1 TABLET BY MOUTH AT BEDTIME DAILY Contact prescribing physician if questions or concerns Unchanged topiramate (topiramate 100 mg Tab) See instructions TAKE 1 TABLET BY MOUTH EVERY DAY Contact prescribing physician if questions or concerns Pharmacy Information [facility]/pharmacy #[id number]: [address], [place] [phone] Allergies CloNIDine HCl (Unknown) Pollen (Unknown) Adhesive Bandage (Blister) BuSpar (Other) [place] (Unknown) Milk Products (Unknown) Wheat (Unknown) Problems [...] herniated disc (more content not included)... Normal [facility] c Noteon 08-01-2024 Family [...] OARRS Reviewed, (more content not included)... Normal [facility] Comment on above: Result Comment: Elec tronically Signed By: DANELLE MOREJON FAAFP, Valdemar Garcia\.jeffrey\Date and Time Signed: 08/01/24 10:08 EST CBC AND AUTO DIFFon 07-17-20 ABSOLUTE BASOPHIL 0.0 X10E9/L Normal 0.0-0.2 [facility] Comment on above: Performed By: #### C BCA, PINR, CMP, 2157-01 #### [facility] ([id number]) [address] [place] [address], [place] [address] ABSOLUTE NEUTROPHIL 5.4 X10E9/L Normal 1.5-6.6 [facility] Comment on above: Performed By: #### C BCA, PINR, CMP, 2157-01 #### [facility] ([id number]) [address] [place] [address] Basophils/100 WBC (Bld) 0.3 % Normal [facility] Comment on above: Performed By: #### C BCA, PINR, CMP, 2157-01 #### [facility] ([id number]) [address] [place] [address] Eosinophils (Bld) [#/Vol] 0.2 10*3/uL Normal 0.0-0.4 [facility] Comment on above: Performed By: #### Miracle BCA, PINR, CMP, 2157-01 #### [facility] ([id number]) [address] [place] [address] Eosinophils/100 WBC (Bld) 2.9 % Normal [facility] Comment on above: Performed By: #### Miracle BCA, PINR, CMP, 2157-01 #### [facility] ([id number]) [address] [place] [address] Erythrocyte distribution width (RBC) [Ratio] 13.9 % Normal 11.5-15.0 [facility] Comment on above: Performed By: #### Miracle BCA, PINR, CMP, 2157-01 #### [facility] ([id number]) [address] [place] [address] Hematocrit (Bld) [Volume fraction] 36.9 % Normal 35-47 [facility] Comment on above: Performed By: #### C BCA, PINR, CMP, 2157-01 #### [facility] ([id number]) [address] [place] [address] Hemoglobin (Bld) [Mass/Vol] 12.2 g/dL Normal 11.7-15.5 [facility] Comment on above: Performed By: #### Miracle BCA, PINR, CMP, 2157-01 #### [facility] ([id number]) [address] [place] [address] Lymphocytes (Bld) [#/Vol] 1.4 10*3/uL Normal 1.0-3.5 [facility] Comment on above: Performed By: #### C BCA, PINR, CMP, 2157-01 #### [facility] ([id number]) [address] [place] [address] Lymphocytes/100 WBC (Bld) 19.0 % Normal [facility] Comment on above: Performed By: #### Miracle BCA, PINR, CMP, 2157-01 #### [facility] ([id number]) [address] [place] [address] MCH (RBC) [Entitic mass] 28.6 pg Normal 27-34 [facility] Comment on above: Performed By: #### Miracle BCA, PINR, CMP, 2157-01 #### [facility] ([id number]) [address] [place] [address] MCHC (RBC) [Mass/Vol] 33.0 g/dL Normal 32-36 [facility] Comment on above: Performed By: #### Miracle BCA, PINR, CMP, 2157-01 #### [facility] ([id number]) [address] [place] [address] MCV (RBC) [Entitic vol] 87 fL Normal 80-100 [facility] Comment on above: Performed By: #### C BCA, PINR, CMP, 2157-01 #### [facility] ([id number]) [address] [place] [address] Monocytes (Bld) [#/Vol] 0.4 10*3/uL Normal 0-0.9 [facility] Comment on above: Performed By: #### Miracle BCA, PINR, CMP, 2157-01 #### [facility] ([id number]) [address] [place] [address] Monocytes/100 WBC (Bld) 5.0 % Normal [facility] Comment on above: Performed By: #### Miracle BCA, PINR, CMP, 2157-01 #### [facility] ([id number]) [address] [place] [address] Neutrophils/100 WBC (Bld) 72.8 % Normal [facility] Comment on above: Performed By: #### C BCA, PINR, CMP, 2157-01 #### [facility] ([id number]) [address] [place] [address] Platelet mean volume (Bld) [Entitic vol] 7.6 fL Normal 7-12 [facility] Comment on above: Performed By: #### Miracle BCA, PINR, CMP, 2157-01 #### [facility] ([id number]) [address] [place] [address] Platelets (Bld) [#/Vol] 345 10*3/uL Normal 150-450 [facility] Comment on above: Performed By: #### Miracle BCA, PINR, CMP, 2157-01 #### [facility] ([id number]) [address] [place] [address] RBC COUNT 4.26 X10E12/L Normal 3.80-5.20 [facility] Comment on above: Performed By: #### C BCA, PINR, CMP, 2157-01 #### [facility] ([id number]) [address] [place] [address] WBC (Bld) [#/Vol] 7.4 10*3/uL Normal 4.0-11.0 [facility] Comment on above: Performed By: #### Miracle BCA, PINR, CMP, 2157-01 #### [facility] ([id number]) [address] [place] [address] CK [Catalytic activity/Vol]o n 07-17-2024 CPK 108 U/L Normal 24-170 [facility] Comment on above: Performed By: #### C BCA, PINR, CMP, 2157-01 #### [facility] ([id number]) [address] [place] [address] COMPREHENSIVE METABOLIC PANE Mariano 07-17-2024 Albumin [Mass/Vol] 3.8 g/dL Normal 3.2-5.3 [facility] Comment on above: Performed By: #### C BCA, PINR, CMP, 2157-01 #### [facility] ([id number]) [address] [place] [address] ALP [Catalytic activity/Vol] 108 U/L Normal 39-130 [facility] Comment on above: Performed By: #### C BCA, PINR, CMP, 2157-01 #### [facility] ([id number]) [address] [place] [address] ALT [Catalytic activity/Vol] 40 U/L High 0-31 [facility] Comment on above: Performed By: #### C BCA, PINR, CMP, 2157-01 #### [facility] ([id number]) [address] [place] [address] Anion gap [Moles/Vol] 4 mmol/L Low 5-15 [facility] Comment on above: Performed By: #### C BCA, PINR, CMP, 2157-01 #### [facility] ([id number]) [address] [place] [address] AST [Catalytic activity/Vol] 29 U/L Normal 0-41 [facility] Comment on above: Performed By: #### C BCA, PINR, CMP, 2157-01 #### [facility] ([id number]) [address] [place] [address] Bilirubin [Mass/Vol] 0.3 mg/dL Normal 0.3-1.2 [facility] Comment on above: Performed By: #### C BCA, PINR, CMP, 2157-01 #### [facility] ([id number]) [address] [place] [address] Calcium [Mass/Vol] 8.9 mg/dL Normal 8.5-10.5 [facility] Comment on above: Performed By: #### C BCA, PINR, CMP, 2157-01 #### [facility] ([id number]) [address] [place] [address] Chloride [Moles/Vol] 106 mmol/L Normal 98-109 [facility] Comment on above: Performed By: #### C BCA, PINR, CMP, 2157-01 #### [facility] ([id number]) [address] [place] [address]29 CO2 [Moles/Vol] 22 mmol/L Normal 22-32 [facility] Comment on above: Performed By: #### C BCA, PINR, CMP, 2157-01 #### [facility] ([id number]) [address] [place] [address] Creatinine [Mass/Vol] 0.78 mg/dL Normal 0.40-1.00 [facility] Comment on above: Result Comment: METH OD TRACEABLE TO IDMS STANDARD Performed By: #### C BCA, PINR, CMP, 2157-01 #### [facility] ([id number]) [address] [place] [address] eGFR (CKD-EPI) NON-RACE DEPENDENT >90 Normal >59 [facility] Comment on above: Result Comment: Reported eGFR is based on the CKD-EPI 2020 equation that does not use a race coefficient. Performed By: #### C BCA, PINR, CMP, 2157-01 #### [facility] ([id number]) [address] [place] [address] [place] [address] Glucose [Mass/Vol] 99 mg/dL Normal 65-99 [facility] Comment on above: Performed By: #### C BCA, PINR, CMP, 2157-01 #### [facility] ([id number]) [address] [place] [address]10 Potassium [Moles/Vol] 3.5 mmol/L Normal 3.5-5.0 [facility] Comment on above: Performed By: #### C KESHA, PINR, CMP, 2157-01 #### [facility] ([id number]) [address] [place] [address]19 Protein [Mass/Vol] 7.9 g/dL Normal 6.0-8.0 [facility] Comment on above: Performed By: #### C BCA, PINR, CMP, 2157-01 #### [facility] ([id number]) [address] [place] [address]11 Sodium [Moles/Vol] 132 mmol/L Low 134-146 [facility] Comment on above: Performed By: #### C BCA, PINR, CMP, 2157-01 #### [facility] ([id number]) [address] [place] [address] Urea nitrogen [Mass/Vol] 10 mg/dL Normal 5-23 [facility] Comment on above: Performed By: #### C BCA, PINR, CMP, 2157-01 #### [facility] ([id number]) [address] [place] [address] PROTIME AND INRon 07-17-2024 INR Coag (PPP) [Relative time] 1.0 {INR} Normal 0.8-1.1 [facility] Comment on above: Performed By: #### C BCA, PINR, CMP, 2157-01 #### [facility] ([id number]) [address] [place] [address] PT Coag (PPP) [Time] 11.7 s Normal 9.8-13.2 [facility] Comment on above: Result Comment: NEW REFERENCE RANGE Performed By: #### C BCA, PINR, CMP, 2157-6 #### [facility] ([id number]) [address] [place] [address]70 XR FOREARM LT 2 VWSon 2023 XR FOREARM LT 2 VWS XR FOREARM LT 2 VWS 2 VIEWS LEFT FOREARM HISTORY: Injury, pain COMPARISON: None IMPRESSION: * Acute nondisplaced mildly comminuted fractures of the mid shafts of both the left radius and ulna. Finalized by Mina Gilbert MD on 07/17/2024 3:49 AM Normal [facility] XR HAND LT 2 VWSon XR HAND LT 2 VWS XR HAND LT 2 VWS 2 views left hand HISTORY: Injury, pain COMPARISON: None IMPRESSION: * No acute fracture or malalignment in the left hand. Finalized by Mina Gilbert MD on 07/17/2024 3:49 AM Normal [facility] XR CERVICAL SPINE (4-5 VIEWS )on [...] Raymon Garcia MD 05/30/23 Final result Normal [facility] HEMATOLOGYOrdered By: Ambrosio Ugalde on 04-15-2023 Sed Rate Automated 13 mm/h Normal 0 - 34 mm/hr [facility] HemeAutoSS CT HEAD WO [...] MD 03/19/23 Edited Result - FINAL Normal [facility] Basic Metabolic Panelon - Anion gap [Moles/Vol] 10 mmol/L 9 - 17 mmol/L [facility] Calcium [Mass/Vol] 8.6 mg/dL 8.6 - 10. 4 mg/dL [facility] Chloride [Moles/Vol] 108 mmol/L High 98 - 107 mmol/L [facility] CO2 [Moles/Vol] 22 mmol/L 20 - 31 mmol/L [facility] Creatinine [Mass/Vol] 0.5 mg/dL 0.5 - 0.9 mg/dL [facility] GFR/1.73 sq M.predicted MDRD (S/P/Bld) [Vol rate/Area] - PINF [facility] Comment on above: These results [...] 104 mg/dL High 70 - 99 mg/dL [facility] Interpretation and review of laboratory results Abnormal [facility] Potassium [Moles/Vol] 3.8 mmol/L 3.7 - 5.3 mmol/L [facility] Sodium [Moles/Vol] 140 mmol/L 135 - 144 mmol/L [facility] Urea nitrogen [Mass/Vol] 12 mg/dL 6 - 20 mg/dL [facility] Basic Metabolic Profon 03-10 Anion gap [Moles/Vol] 10 mmol/L Normal 9-17 [facility] Comment on above: Performed By: #### B MP MG, CDP #### [facility] [address] [place] [address] Pricing Strategist: Agustin Logan MD Calcium [Mass/Vol] 8.6 mg/dL Normal 8.6-10.4 [facility] Comment on above: Performed By: #### B MP, MG, CDP #### [facility] [address] [place] [address] Pricing Strategist: Agustin Logan MD Chloride [Moles/Vol] 108 mmol/L High 98-107 [facility] Comment on above: Performed By: #### B JOSE MG, CDP #### [facility] [address] [place] [address]46 Pricing Strategist: Agustin Logan MD CO2 [Moles/Vol] 22 mmol/L Normal 20-31 [facility] Comment on above: Performed By: #### B MP MG, CDP #### [facility] [address] [place] [address]50 Pricing Strategist: Agustin Logan MD Creatinine [Mass/Vol] 0.5 mg/dL Normal 0.5-0.9 [facility] Comment on above: Performed By: #### B MP MG, CDP #### [facility] [address] [place] [address]24 Pricing Strategist: Agustin Logan MD GFR/1.73 sq M.predicted among non-blacks MDRD (S/P/Bld) [Vol rate/Area] mL/min/{1.73_m2} Normal >60 [facility] Comment on above: Result Comment: These [...] By: #### B JOSE MG, CDP #### [facility] [address] [place] [address]41 Pricing Strategist: Agustin Logan MD Glucose [Mass/Vol] 104 mg/dL High 70-99 [facility] Comment on above: Performed By: #### B JOSE MG, CDP #### [facility] [address] [place] [address] 24357 Pricing Strategist: Agustin Logan MD Potassium [Moles/Vol] 3.8 mmol/L Normal 3.7-5.3 [facility] Comment on above: Performed By: #### B JOSE MG, CDP #### [facility] [address] [place] [address]12 Pricing Strategist: Agustin Logan MD Sodium [Moles/Vol] 140 mmol/L Normal 135-144 [facility] Comment on above: Performed By: #### B JOSE MG, CDP #### [facility] [address] [place] [address]308 Pricing Strategist: Agustin Logan MD Urea nitrogen [Mass/Vol] 12 mg/dL Normal 6-20 [facility] Comment on above: Performed By: #### B JOSE MG, CDP #### [employer] [address] [place] [address] Pricing Strategist: Agustin Logan MD CBC with Auto Differentialon 03-10-2023 Basophils (Bld) [#/Vol] [facility] [employer] Basophils/100 WBC (Bld) 0 % 0 - 2 % [email or web address] [employer] [facility]ENT[facility]oud[facility] Eosinophils (Bld) [#/Vol] 0.16 10*3/uL [facility] 24h00 Eosinophils/100 WBC (Bld) 3 % 1 - 4 % [facility] Erythrocyte distribution width (RBC) [Ratio] 13.2 % 11.8 - 14.4 % [facility] Hematocrit (Bld) [Volume fraction] 35.7 % Low 36.3 - 47.1 % [facility] Hemoglobin (Bld) [Mass/Vol] 11.4 g/dL Low 11.9 - 15.1 g/dL [facility] Immature granulocytes (Bld) [#/Vol] [facility] Immature granulocytes/100 WBC (Bld) 0 % 0 [facility] Interpretation and review of laboratory results Abnormal [facility] Lymphocytes/100 WBC (Bld) 28 % 24 - 43 % [facility] Lymphocytes/100 WBC (Bld) 1.73 % [facility] MCH (RBC) [Entitic mass] 28.9 pg 25.2 - 33.5 pg [facility] MCHC (RBC) [Mass/Vol] 31.9 g/dL 28.4 - 34.8 g/dL [facility] MCV (RBC) [Entitic vol] 90.6 fL 82.6 - 102.9 fL [facility] Monocytes/100 WBC (Bld) 7 % 3 - 12 % [facility] Monocytes/100 WBC (Bld) 0.41 % [facility] Neutrophils/100 WBC (Bld) 62 % 36 - 65 % [facility] Nucleated RBC/100 WBC (Bld) [Ratio] 0.0 % 0.0 per 100 WBC [facility] Platelet mean volume (Bld) [Entitic vol] 9.3 fL 8.1 - 13.5 fL [facility] Platelets (Bld) [#/Vol] 360 10*3/uL [facility] RBC (Bld) [#/Vol] 3.94 10*6/uL Low 3.95 - 5.11 m/uL [facility] Segmented neutrophils/100 WBC (Bld) 3.76 % [facility] WBC other (Bld) [#/Vol] 6.1 [facility] CBC with Diffon 03-10-2023 Abs. Basophil <0.03 Normal 0.00-0.20 [facility] Comment on above: Performed By: #### B JOSE MG, CDP #### [place] [address] Pricing Strategist: Agustin Logan MD Abs.Imm.Granulocyte <0.03 Normal 0.00-0.30 [facility] Comment on above: Performed By: #### B JOSE MG, CDP #### [place] [address] Pricing Strategist: Agustin Logan MD Abs.Neutrophil (Seg) 3.76 k/uL Normal 1.50-8.10 [facility] Comment on above: Performed By: #### B JOSE MG, CDP #### [place] [address] Pricing Strategist: Agustin Logan MD Basophils/100 WBC (Bld) 0 % Normal 0-2 [facility] Comment on above: Performed By: #### B JOSE MG, CDP #### [place] [address] Pricing Strategist: Agustin Logan MD Eosinophils (Bld) [#/Vol] 0.16 10*3/uL Normal 0.00-0.44 [facility] Comment on above: Performed By: #### B JOSE MG, CDP #### [facility] [employer] [address] [place] [address] Pricing Strategist: Agustin Logan MD Eosinophils/100 WBC (Bld) 3 % Normal 1-4 [facility] Comment on above: Performed By: #### B JOSE MG, CDP #### [facility] [facility] [employer] [address] [place] [address] Pricing Strategist: Agustin Logan MD Erythrocyte distribution width (RBC) [Ratio] 13.2 % Normal 11.8-14.4 [facility] Comment on above: Performed By: #### B MP, MG, CDP #### [facility] [address] [place] [address] Pricing Strategist: Agustin Logan MD Hematocrit (Bld) [Volume fraction] 35.7 % Low 36.3-47.1 [facility] Comment on above: Performed By: #### B MP, MG, CDP #### [facility] [address] [place] [address] Pricing Strategist: Agustin Logan MD Hemoglobin (Bld) [Mass/Vol] 11.4 g/dL Low 11.9-15.1 [facility] Comment on above: Performed By: #### B MP, MG, CDP #### [facility] [employer] [address] [place] [address] Pricing Strategist: Agustin Logan MD Immature granulocytes/100 WBC (Bld) 0 % Normal 0 [facility] Comment on above: Performed By: #### B MP, MG, CDP #### [facility] [address] [place] [address] Pricing Strategist: Agustin Logan MD Lymphocytes (Bld) [#/Vol] 1.73 10*3/uL Normal 1.10-3.70 [facility] Comment on above: Performed By: #### B MP, MG, CDP #### [facility] [address] [place] [address] Pricing Strategist: Agustin Logan MD Lymphocytes/100 WBC (Bld) 28 % Normal 24-43 [facility] Comment on above: Performed By: #### B MP, MG, CDP #### [facility] [address] [place] [address] Pricing Strategist: Agustin Logan MD MCH (RBC) [Entitic mass] 28.9 pg Normal 25.2-33.5 [facility] Comment on above: Performed By: #### B MP, MG, CDP #### [address] [address] Pricing Strategist: Agustin Logan MD MCHC (RBC) [Mass/Vol] 31.9 g/dL Normal 28.4-34.8 [facility] Comment on above: Performed By: #### B MP, MG, CDP #### [facility] [address] [place] [address] Pricing Strategist: Agustin Logan MD MCV (RBC) [Entitic vol] 90.6 fL Normal 82.6-102.9 [facility] Comment on above: Performed By: #### B MP, MG, CDP #### [address] [address] Pricing Strategist: Agustin Logan MD Monocytes (Bld) [#/Vol] 0.41 10*3/uL Normal 0.10-1.20 [facility] Comment on above: Performed By: #### B MP, MG, CDP #### [facility] [employer] [address] [place] [address] Pricing Strategist: Agustin Logan MD Monocytes/100 WBC (Bld) 7 % Normal 3-12 [facility] Comment on above: Performed By: #### B MP, MG, CDP #### [facility] [employer] [address] [place] [address] Pricing Strategist: Agustin Logan MD Neutrophil (Seg) 62 % Normal 36-65 [facility] Comment on above: Performed By: #### B MP, MG, CDP #### [facility] [employer] [address] [place] [address] Pricing Strategist: Agustin Logan MD NRBC Automated 0.0 per 100 WBC Normal 0.0 [facility] Comment on above: Performed By: #### B MP, MG, CDP #### [facility] [address] [place] [address] Pricing Strategist: Agustin Logan MD Platelet mean volume (Bld) [Entitic vol] 9.3 fL Normal 8.1-13.5 [facility] Comment on above: Performed By: #### B JOSE MG, CDP #### [facility] [employer] [address] [place] [address] Pricing Strategist: Agustin Logan MD Platelets (Bld) [#/Vol] 360 10*3/uL Normal 138-453 [facility] Comment on above: Performed By: #### B JOSE MG, CDP #### [facility] [employer] [facility] [place] [address] Pricing Strategist: Agustin Logan MD RBC (Bld) [#/Vol] 3.94 10*6/uL Low 3.95-5.11 [facility] Comment on above: Performed By: #### B JOSE MG, CDP #### [facility] [employer] [address] [place] [address] Pricing Strategist: Agustin Logan MD WBC (Bld) [#/Vol] 6.1 10*3/uL Normal 3.5-11.3 [facility] Comment on above: Performed By: #### B JOSE MG, CDP #### [address] [address] Pricing Strategist: Agustin Logan MD CT HEAD WO CONTRASTon [...] MD 03/10/23 Edited Result - FINAL Normal [facility] CT HEAD WO CONTRAST ADDENDUM: Subtle [...] MD 03/10/23 Edited Result - FINAL Normal [facility] EKG 12 Leadon 03-10-2023 Atrial Rate 62 BPM [facility] P [place] 1 degrees [facility] P-R Interval 128 ms [facility] Q-T Interval 412 ms [facility] QRS Duration 76 ms [facility] QTc Calculation (Bazett) 418 ms [facility] R [place] 54 degrees [facility] T [place] 23 degrees [facility] Ventricular Rate 62 BPM [facility] Normal sinus rhythm Normal ECG When compared with ECG of 14-FEB-2023 02:26, No significant change was found Homa Lemus MD - 03/10/2023 Normal sinus rhythm Normal ECG When compared with ECG of 14-FEB-2023 02:26, No significant change was found [facility] Normal sinus rhythm Abnormal ECG When compared with ECG of 14-FEB-2023 02:26, Junctional rhythm has replaced Sinus rhythm Homa Lemus MD - 03/10/2023 Normal sinus rhythm Abnormal ECG When compared with ECG of 14-FEB-2023 02:26, Junctional rhythm has replaced Sinus rhythm [facility] E[facility] 12 LeadOrdered By: Jd Knutson on 03-10-2023 Atrial Rate 288 BPM [email or web address] Work Phone: Q-T Interval 414 ms [email or web address] Work Phone: QRS Duration 84 ms [facility] Work Phone: QTc Calculation (Bazett) 423 ms [facility] [employer] Work Phone: R [place] 60 degrees [facility] [employer] Work Phone: T [place] 19 degrees [facility] [employer] Work Phone: Ventricular Rate 63 BPM [facility] [employer] Work Phone: [facility] [employer] Work Phone: Magnesiumon 03-10-2023 Magnesium [Mass/Vol] 2.0 mg/dL Normal 1.6-2.6 [facility] [employer] Comment on above: Performed By: #### B MP, MG, CDP #### [facility] [address] [place] [address] Pricing Strategist: Agustin Logan MD [facility] [employer] Basic Metabolic Panelon 02-20 Anion gap [Moles/Vol] 10 mmol/L 9 - 17 mmol/L [facility] [employer] Calcium [Mass/Vol] 9.1 mg/dL 8.6 - 10. 4 mg/dL [facility] [employer] Chloride [Moles/Vol] 104 mmol/L 98 - 107 mmol/L [facility] [employer] CO2 [Moles/Vol] 26 mmol/L 20 - 31 mmol/L [facility] [employer] Creatinine [Mass/Vol] 0.5 mg/dL 0.5 - 0.9 mg/dL [facility] [employer] GFR/1.73 sq M.predicted MDRD (S/P/Bld) [Vol rate/Area] - PINF [facility] Comment on above: These results are not [...] [Mass/Vol] 89 mg/dL 70 - 99 mg/dL [facility] Potassium [Moles/Vol] 3.7 mmol/L 3.7 - 5.3 mmol/L [facility] [employer] Sodium [Moles/Vol] 140 mmol/L 135 - 144 mmol/L [facility] Urea nitrogen [Mass/Vol] 7 mg/dL 6 - 20 mg/dL [facility] Basic Metabolic Profon 03-09 Anion gap [Moles/Vol] 10 mmol/L Normal 9-17 [facility] Comment on above: Performed By: #### B MP, MG, CDP #### [employer] [address] [place] [address] Pricing Strategist: Agustin Logan MD Calcium [Mass/Vol] 9.1 mg/dL Normal 8.6-10.4 [facility] Comment on above: Performed By: #### B MP MG, CDP #### [employer] [address] [place] [address] Pricing Strategist: Agustin Logan MD Chloride [Moles/Vol] 104 mmol/L Normal 98-107 [facility] Comment on above: Performed By: #### B MP MG, CDP #### [employer] [address] [place] [address] Pricing Strategist: Agustin Logan MD CO2 [Moles/Vol] 26 mmol/L Normal 20-31 [facility] Comment on above: Performed By: #### B MP MG, CDP #### [employer] [address] [place] [address] Pricing Strategist: Agustin Logan MD Creatinine [Mass/Vol] 0.5 mg/dL Normal 0.5-0.9 [facility] Comment on above: Performed By: #### B MP MG, CDP #### [employer] [address] [place] [address] Pricing Strategist: Agustin Logan MD GFR/1.73 sq M.predicted among non-blacks MDRD (S/P/Bld) [Vol rate/Area] mL/min/{1.73_m2} Normal >60 [facility] Comment on above: Result Comment: These [...] renal tubular secretion. Performed By: #### B MP MG, CDP #### [employer] [address] [place] [address] Pricing Strategist: Agustin Logan MD Glucose [Mass/Vol] 89 mg/dL Normal 70-99 [facility] Comment on above: Performed By: #### B JOSE MG, CDP #### [employer] [address] [place] [address] Pricing Strategist: Agustin Logan MD Potassium [Moles/Vol] 3.7 mmol/L Normal 3.7-5.3 [facility] Comment on above: Performed By: #### B JOSE MG, CDP #### [employer] [address] [place] [address] Pricing Strategist: Agustin Logan MD Sodium [Moles/Vol] 140 mmol/L Normal 135-144 [facility] Comment on above: Performed By: #### B JOSE MG, CDP #### [employer] [address] [place] [address] Pricing Strategist: Agustin Logan MD Urea nitrogen [Mass/Vol] 7 mg/dL Normal 6-20 [facility] Comment on above: Performed By: #### B MP MG, CDP #### [employer] [address] [place] [address] Pricing Strategist: Agustin Logan MD CBC with Auto Differentialon 03-09-2023 Basophils (Bld) [#/Vol] [facility] 24h00 Basophils/100 WBC (Bld) 0 % 0 - 2 % [facility] 24h00 Eosinophils (Bld) [#/Vol] 0.14 10*3/uL [facility] Eosinophils/100 WBC (Bld) 2 % 1 - 4 % [facility] Erythrocyte distribution width (RBC) [Ratio] 13.2 % 11.8 - 14.4 % [facility] Hematocrit (Bld) [Volume fraction] 37.0 % 36.3 - 47.1 % [facility] Hemoglobin (Bld) [Mass/Vol] 12.1 g/dL 11.9 - 15.1 g/dL [facility] Immature granulocytes (Bld) [#/Vol] [facility] Immature granulocytes/100 WBC (Bld) 0 % 0 [facility] Lymphocytes/100 WBC (Bld) 37 % 24 - 43 % [facility] Lymphocytes/100 WBC (Bld) 2.28 % [facility] MCH (RBC) [Entitic mass] 29.4 pg 25.2 - 33.5 pg [facility] MCHC (RBC) [Mass/Vol] 32.7 g/dL 28.4 - 34.8 g/dL [facility] MCV (RBC) [Entitic vol] 89.8 fL 82.6 - 102.9 fL [facility] Monocytes/100 WBC (Bld) 6 % 3 - 12 % [facility] Monocytes/100 WBC (Bld) 0.39 % [facility] Neutrophils/100 WBC (Bld) 55 % 36 - 65 % [facility] Nucleated RBC/100 WBC (Bld) [Ratio] 0.0 % 0.0 per 100 WBC [facility] Platelet mean volume (Bld) [Entitic vol] 9.0 fL 8.1 - 13.5 fL [facility] Platelets (Bld) [#/Vol] 391 10*3/uL [facility] RBC (Bld) [#/Vol] 4.12 10*6/uL 3.95 - 5.11 m/uL [facility] Segmented neutrophils/100 WBC (Bld) 3.33 % [facility] WBC other (Bld) [#/Vol] 6.2 [facility] CBC with Diffon 03-09-2023 Abs. Basophil <0.03 Normal 0.00-0.20 [facility] Comment on above: Performed By: #### B JOSE MG, CDP #### [place] [address] Pricing Strategist: Agustin Logan MD Abs.Imm.Granulocyte <0.03 Normal 0.00-0.30 [facility] Comment on above: Performed By: #### B JOSE MG, CDP #### [place] [address] Pricing Strategist: Agustin Logan MD Abs.Neutrophil (Seg) 3.33 k/uL Normal 1.50-8.10 [facility] Comment on above: Performed By: #### B JOSE MG, CDP #### [place] [address] Pricing Strategist: Agustin Logan MD Basophils/100 WBC (Bld) 0 % Normal 0-2 [facility] Comment on above: Performed By: #### B JOSE MG, CDP #### [place] [address] Pricing Strategist: Agustin Logan MD Eosinophils (Bld) [#/Vol] 0.14 10*3/uL Normal 0.00-0.44 [facility] Comment on above: Performed By: #### B JOSE MG, CDP #### [facility] [employer] [address] [place] [address] Pricing Strategist: Agustin Logan MD Eosinophils/100 WBC (Bld) 2 % Normal 1-4 [facility] Comment on above: Performed By: #### B JOSE MG, CDP #### [facility] [employer] [address] [place] [address] Pricing Strategist: Agustin Logan MD Erythrocyte distribution width (RBC) [Ratio] 13.2 % Normal 11.8-14.4 [facility] Comment on above: Performed By: #### B MP, MG, CDP #### [facility] [address] [place] [address] Pricing Strategist: Agustin Logan MD Hematocrit (Bld) [Volume fraction] 37.0 % Normal 36.3-47.1 [facility] Comment on above: Performed By: #### B MP, MG, CDP #### [facility] [employer] [address] [place] [address] Pricing Strategist: Agustin Logan MD Hemoglobin (Bld) [Mass/Vol] 12.1 g/dL Normal 11.9-15.1 [facility] Comment on above: Performed By: #### B MP, MG, CDP #### [facility] [employer] [address] [place] [address] Pricing Strategist: Agustin Logan MD Immature granulocytes/100 WBC (Bld) 0 % Normal 0 [facility] Comment on above: Performed By: #### B MP, MG, CDP #### [facility] [address] [place] [address] Pricing Strategist: Agustin Logan MD Lymphocytes (Bld) [#/Vol] 2.28 10*3/uL Normal 1.10-3.70 [facility] Comment on above: Performed By: #### B MP, MG, CDP #### [facility] [address] [place] [address] Pricing Strategist: Agustin Logan MD Lymphocytes/100 WBC (Bld) 37 % Normal 24-43 [facility] Comment on above: Performed By: #### B MP, MG, CDP #### [facility] [address] [place] [address] Pricing Strategist: Agustin Logan MD MCH (RBC) [Entitic mass] 29.4 pg Normal 25.2-33.5 [facility] Comment on above: Performed By: #### B MP, MG, CDP #### [address] [address] Pricing Strategist: Agustin Logan MD MCHC (RBC) [Mass/Vol] 32.7 g/dL Normal 28.4-34.8 [facility] Comment on above: Performed By: #### B MP, MG, CDP #### [facility] [address] [place] [address] Pricing Strategist: Agustin Logan MD MCV (RBC) [Entitic vol] 89.8 fL Normal 82.6-102.9 [facility] Comment on above: Performed By: #### B MP, MG, CDP #### [address] [address] Pricing Strategist: Agustin Logan MD Monocytes (Bld) [#/Vol] 0.39 10*3/uL Normal 0.10-1.20 [facility] Comment on above: Performed By: #### B MP, MG, CDP #### [facility] [employer] [address] [place] [address] Pricing Strategist: Agustin Logan MD Monocytes/100 WBC (Bld) 6 % Normal 3-12 [facility] Comment on above: Performed By: #### B MP, MG, CDP #### [facility] [employer] [address] [place] [address] Pricing Strategist: Agustin Logan MD Neutrophil (Seg) 55 % Normal 36-65 [facility] Comment on above: Performed By: #### B MP, MG, CDP #### [facility] [employer] [address] [place] [address] Pricing Strategist: Agustin Logan MD NRBC Automated 0.0 per 100 WBC Normal 0.0 [facility] Comment on above: Performed By: #### B MP, MG, CDP #### [facility] [employer] [address] [place] [address] Pricing Strategist: Agustin Logan MD Platelet mean volume (Bld) [Entitic vol] 9.0 fL Normal 8.1-13.5 [facility] Comment on above: Performed By: #### B JOSE MG, CDP #### [address] [address] Pricing Strategist: Agustin Logan MD Platelets (Bld) [#/Vol] 391 10*3/uL Normal 138-453 [facility] Comment on above: Performed By: #### B JOSE MG, CDP #### [address] [address] Pricing Strategist: Agustin Logan MD RBC (Bld) [#/Vol] 4.12 10*6/uL Normal 3.95-5.11 [facility] Comment on above: Performed By: #### B JOSE MG, CDP #### [address] [address] Pricing Strategist: Agustin Logan MD WBC (Bld) [#/Vol] 6.2 10*3/uL Normal 3.5-11.3 [facility] Comment on above: Performed By: #### B JOSE MG, CDP #### [address] [address] Pricing Strategist: Agustin Logan MD COVID-19, Rapidon 03-09-2023 SARS-CoV-2 (COVID-19) RdRp gene MAXIM+probe Ql (Resp) Not detected Not Detected [facility] Comment on above: Rapid NAAT: [...] management decisions. Fact sheet for Healthcare Providers: https://www.fda.gov/media/662200/download Fact sheet for Patients: https://www.fda.gov/media/296004/download Methodology: Isothermal Nucleic Acid Amplification Specimen Description .NASOPHARYNGEAL SWAB [facility] CT CERVICAL SPINE WO CONTRAS Ton 03-09-2023 [...] Dwayne Poole MD 03/09/23 Final result Normal [facility] No acute abnormality of the cervical spine. [facility]IS CONSOLIDATED EXAMINATION: CT OF THE CERVICAL SPINE [...] There is no prevertebral soft tissue swelling. [facility] Dwayne Peterson MD - 03/09/2023 EXAMINATION: CT OF THE [...] No acute abnormality of the cervical spine. [facility] CT CERVICAL SPINE WO CONTRAS TOrdered By: Dwayne Poole on 03-09-2023 [facility] Work Phone: CT HEAD WO [...] Adama Arredondo MD 03/09/23 Final result Normal [facility] Stable subacute left frontotemporal subdural hematoma measuring 7 mm in thickness without significant mass effect. No new hemorrhage or acute infarct identified. [facility] EXAMINATION: CT OF THE HEAD WITHOUT CONTRAST [...] of the visualized skull or soft tissues. [facility] Adama Arredondo MD - 03/09/2023 EXAMINATION: CT [...] No new hemorrhage or acute infarct identified. [facility] Radiology Study observation (narrative) [facility] CT HEAD WO CONTRAST EXAMINATION: [...] Terence Hollingsworth MD 03/09/23 Final result Normal [facility] Expected evolutionar y changes of left subdural hematoma and minimally hemorrhagic left temporal contusion compared to the previous exam of 02/18/2023. Again noted and unchanged are right temporal bone fracture and probable nondisplaced non angulated right zygomatic arch fracture. [facility] EXAMINATION: CT OF THE HEAD [...] fracture of the right zygomatic arch, stable. [facility] Terence Hollingsworth MD - 03/09/2023 [...] nondisplaced non angulated right zygomatic arch fracture. [facility] CT HEAD WO CONTRASTOrdered B y: Adama Arredondo on 03-09-2023 [facility] [employer] Work Phone: CT HEAD WO CONTRASTOrdered B y: Terence Suttonana on 03-09-2023 [facility] [employer] Work Phone: Calcium, Ionicon 03-09-2023 Calcium [Moles/Vol] 1.27 mmol/L Normal 1.13-1.33 [facility] Comment on above: Performed By: #### B MP, MG, CDP #### [facility] [address] [place] [address] Pricing Strategist: Agustin Logan MD Calcium, Ionizedon Calcium.ionized (Bld) [Moles/Vol] 1.27 mmol/L 1.13 - 1.33 mmol/L [facility] Drug Scr, Abuse, Uron 2022 Amphetamine(s),Ur Positive Abnormal NEG [facility] Comment on above: Result Comment: (Positive cutoff 1000 ng/mL) Performed By: #### B JOSE MG, CDP #### [employer] [address] [place] [id number] Pricing Strategist: Agustin Logan MD Barbiturate(s),Ur Negative Normal NEG [facility] Comment on above: Result Comment: (Positive cutoff 200 ng/mL) Performed By: #### B MP MG, CDP #### [employer] [address] [place] [address] Pricing Strategist: Agustin Logan MD Benzodiazepine(s) Negative Normal NEG [facility] Comment on above: Result Comment: (Positive cutoff 200 ng/mL) Performed By: #### B JOSE MG, CDP #### [facility] [employer] [address] [place] [address] 93748 Pricing Strategist: Agustin Logan MD Cannabinoid(s),Ur Negative Normal NEG [facility] Comment on above: Result Comment: (Positive cutoff 50 ng/mL) Performed By: #### B MP MG, CDP #### [facility] [employer] [address] [place] [address]94 Pricing Strategist: Agustin Logan MD Cocaine Metabolite Negative Normal NEG [facility] Comment on above: Result Comment: (Positive cutoff 300 ng/mL) Performed By: #### B MP MG, CDP #### [facility] [employer] [address] [place] [address] 66495 Pricing Strategist: Agustin Logan MD Fentanyl, Urine Positive Abnormal NEG [facility] Comment on above: Result Comment: (Positive cutoff 5 ng/ml) Performed By: #### B MP, MG, CDP #### [employer] [address] [place] [address] 87771 Pricing Strategist: Agustin Logan MD Interpretive Info Assay provides medic al screening only. The absence of expected drug(s) and/or Normal [facility] Comment on above: Result Comment: meta bolite(s) may indicate diluted or adulterated urine, limitations of testing or timing of collection. Testing for legal purposes should be confirmed by another method. To request confirmation of test result, please call the lab within 7 days of sample submission. Performed By: #### B JOSE MG, CDP #### [employer] [address] [place] [address] 88611 Pricing Strategist: Agustin Logan MD Methadone Ql (U) Negative Normal NEG [facility] Comment on above: Result Comment: (Positive cutoff 300 ng/mL) Performed By: #### B MP MG, CDP #### [employer] [address] [place] [address] 73859 Pricing Strategist: Agustin Logan MD Opiate(s), Ur Negative Normal NEG [facility] Comment on above: Result Comment: (Positive cutoff 300 ng/mL) Performed By: #### B MP MG, CDP #### [employer] [address] [place] [address] 00860 Pricing Strategist: Agustin Logan MD Oxycodone, Urine Negative Normal NEG [facility] Comment on above: Result Comment: (Positive cutoff 100 ng/mL) Performed By: #### B MP, MG, CDP #### [employer] [address] [place] [address] 10473 Pricing Strategist: Agustin Logan MD Phencyclidine, Ur Negative Normal NEG [facility] Comment on above: Result Comment: (Positive cutoff 25 ng/mL) Performed By: #### B MP, MG, CDP #### [employer] [address] [place] [address] [place] [address] Pricing Strategist: Agustin Logan MD Drug screen multi urineon Amphetamines Ql (U) Positive Abnormal NEGATIVE [facility] Comment on above: (Positive cutoff 1000 ng/mL) Barbiturates Screen Ql (U) Negative NEGATIVE [facility] Comment on above: (Positive cutoff 200 ng/mL) Benzodiazepines Ql (U) Negative NEGATIVE [facility] Comment on above: (Positive cutoff 200 ng/mL) Cannabinoids Screen Ql (U) Negative NEGATIVE [facility] Comment on above: (Positive cutoff 50 ng/mL) Cocaine Ql (U) Negative NEGATIVE [facility] Comment on above: (Positive cutoff 300 ng/mL) fentaNYL Ql (U) Positive Abnormal NEGATIVE [facility] Comment on above: (Positive cutoff 5 ng/ml) Interpretation and review of laboratory results Abnormal [facility] Methadone Ql (U) Negative NEGATIVE [facility] Comment on above: (Positive cutoff 300 ng/mL) Opiates Screen Ql (U) Negative NEGATIVE [facility] Comment on above: (Positive cutoff 300 ng/mL) oxyCODONE Ql (U) Negative NEGATIVE [facility] Comment on above: (Positive cutoff 100 ng/mL) Phencyclidine Ql (U) Negative NEGATIVE [facility] Comment on above: (Positive cutoff 25 ng/mL) Test Information Assay provides medic al screening only. The absence of expected drug(s) and/or metabolite(s) may indicate diluted or adulterated urine, limitations of testing or timing of collection. [facility] Comment on above: Testing for legal pu rposes should be confirmed by another method. To request confirmation of test result, please call the lab within 7 days of sample submission. [facility] Ethanolon 03-09-2023 Ethanol percent <0.010 NINF - 0.010 % [facility] Ethanolamine [Mass/Vol] mg/dL NINF - 10 mg/dL [facility] Ethanol Alcoholon 03-09-2023 Ethanol [Mass/Vol] mg/dL Normal <10 [facility] Comment on above: Performed By: #### B MP, MG, CDP #### [facility] [address] [place] [address] Pricing Strategist: Agustin Logan MD Ethanol percent <0.010 Normal <0.010 [facility] Comment on above: Performed By: #### B MP, MG, CDP #### [facility] [place] [facility] [address] [place], [place] [phone] Pricing Strategist: Agustin Logan MD Magnesiumon 03-09-2023 Magnesium [Mass/Vol] 2.1 mg/dL Normal 1.6-2.6 [facility] Comment on above: Performed By: #### B MP, MG, CDP #### [facility] [place] [facility] [place] [address] Pricing Strategist: Agustin Logan MD Magnesium [Mass/Vol] 2.1 mg/dL 1.6 - 2.6 mg/dL [facility] No Panel Informationon 03-09 [facility] Radiology Study observation (narrative) [facility] [id number] 03-09-2023 SARS-CoV-2 (COVID-19) RNA MAXIM+probe Ql (Unsp spec) Not detected Normal NOTDET [facility] Comment on above: Result Comment: Rapid [...] management decisions. Fact sheet for Healthcare Providers: https://www.fda.gov/media/953719/download Fact sheet for Patients: https://www.fda.gov/media/848872/download Methodology: Isothermal Nucleic Acid Amplification Performed By: #### C OVRB #### [employer] [address] [place] [address] [id number] Pricing Strategist: Agustin Logan MD TSHon 03-09-2023 TSH Qn 2.00 m[IU]/L [facility] Thyroid Stim. Horm.on 2022 Thyroid Stim. Horm. 2.00 uIU/mL Normal 0.30-5.00 [facility] Comment on above: Performed By: #### B MG JOSE, CDP #### [employer] [address] [place] [address] [phone] Pricing Strategist: Agustin Logan MD Troponinon 03-09-2023 Troponin, High Sens <6 Normal 0-14 [facility] Comment on above: Result Comment: High Sensitivity Troponin values cannot be compared with other Troponin methodologies. Performed By: #### B MG JOSE, CDP #### [employer] [address] [place] [address] [phone] Pricing Strategist: Agustin Logan MD Troponin I.cardiac High sensitivity method [Mass/Vol] ng/L 0 - 14 ng/L [facility] Comment on above: High Sensitivity Tro ponin values cannot be compared with other Troponin methodologies. CT soft tissue neck wo conon 02-28-2023 CT soft tissue neck wo con [facility] [place] [place] [address] CT Scan Report Signed Patient: Felisa Jones MR#: [id number] 49 : 1985 Acct:[id number] Age/Sex: 37 / F ADM Date: 02/22/23 Loc: Room: [address] [place] [address] Type: ADM IN Attending Dr: Gerald Hines [...] Claudette Grijalva M.D.02/28/2023 4:32 PM Dictation Location: [place] [address] Transcribed By: [facility] 02/28/23 1632 Dictated By: Claudette Grijalva II, MD 02/28/23 1623 Signed By: 02/28/23 1632 [facility] CT [facility] CT head/brain [place] [facility] [place] [address] CT Scan Report Signed Patient: Felisa Jones MR#: [id number] 49 : 1985 Acct:[id number] Age/Sex: 37 / F ADM Date: 02/22/23 Loc: Room: [address] [place] [address] Type: ADM IN Attending Dr: Gerald Hines [...] Eitan Grace M.D.02/24/2023 8:29 PM Dictation Location: [place] [address] Transcribed By: [facility] 02/24/232028 Dictated By: Eitan Grace DO 02/24/232024 Signed By: 02/24/232028 Normal [facility] Complete Blood Count Auto Di ffon 02-23-2023 Basophils (Bld) [#/Vol] 0.0 10*3/uL Normal 0.0-0.2 [facility] Comment on above: Result Comment: PERF ORMED BY: [place] [address] PATHOLOGIST AUTO BODY REPAIR TEACHER MARITO MARIA M.D. Performed By: #### P AB, CBC, CMP #### [facility] [address] [place] [address] [place] Basophils/100 WBC (Bld) 0.4 % Normal . [facility] Comment on above: Performed By: #### P AB, CBC, CMP #### [facility] [address] [place] [address] [place] Eosinophils (Bld) [#/Vol] 0.2 10*3/uL Normal 0.0-0.45 [facility] Comment on above: Performed By: #### P AB, CBC, CMP #### [address] Eosinophils/100 WBC (Bld) 3.4 % Normal . [facility] Comment on above: Performed By: #### P AB, CBC, CMP #### [address] Erythrocyte distribution width (RBC) [Ratio] 14.6 % Normal 11.9-15.3 [facility] Comment on above: Performed By: #### P AB, CBC, CMP #### [address] Hematocrit (Bld) [Volume fraction] 37.6 % Normal 34.0-46.4 [facility] Comment on above: Performed By: #### P AB, CBC, CMP #### [address] Hemoglobin (Bld) [Mass/Vol] 12.4 g/dL Normal 11.8-15.4 [facility] Comment on above: Performed By: #### P AB, CBC, CMP #### [address] Lymphocytes (Bld) [#/Vol] 1.4 10*3/uL Normal 1.00-4.8 [facility] Comment on above: Performed By: #### P AB, CBC, CMP #### [address] Lymphocytes/100 WBC (Bld) 20.2 % Normal . [facility] Comment on above: Performed By: #### P AB, CBC, CMP #### [address] MCH (RBC) [Entitic mass] 28.9 pg Normal 24.7-34.3 [facility] Comment on above: Performed By: #### P AB, CBC, CMP #### [address] MCV (RBC) [Entitic vol] 87.7 fL Normal 80-100 [facility] Comment on above: Performed By: #### P AB, CBC, CMP #### [address] Mean Corpuscular HGB Conc 33.0 g/dL Normal 32.0-35.0 [facility] Comment on above: Performed By: #### P AB, CBC, CMP #### [address] Monocytes (Bld) [#/Vol] 0.5 10*3/uL Normal 0.0-0.8 [facility] Comment on above: Performed By: #### P AB, CBC, CMP #### [address] Monocytes/100 WBC (Bld) 6.6 % Normal . [facility] Comment on above: Performed By: #### P AB, CBC, CMP #### [address] Neutrophils (Bld) [#/Vol] 4.9 10*3/uL Normal 1.8-7.7 [facility] Comment on above: Performed By: #### P AB, CBC, CMP #### [address] Neutrophils/100 WBC (Bld) 69.4 % Normal . [facility] Comment on above: Performed By: #### P AB, CBC, CMP #### [address] NRBC% 0.2 /100{WBC} Normal 0-0.5 [facility] Comment on above: Performed By: #### P AB, CBC, CMP #### [address] Platelet mean volume (Bld) [Entitic vol] 7.4 fL Normal 6.3-10.7 [facility] Comment on above: Performed By: #### P AB, CBC, CMP #### [address] [place] [address] [place] Platelets (Bld) [#/Vol] 280 10*3/uL Normal 150-450 [facility] Comment on above: Performed By: #### P AB, CBC, CMP #### [address] RBC (Bld) [#/Vol] 4.29 10*6/uL Normal 3.60-5.00 [facility] Comment on above: Performed By: #### P AB, CBC, CMP #### [address] WBC (Bld) [#/Vol] 7.1 10*3/uL Normal 3.8-11.6 [facility] Comment on above: Performed By: #### P AB, CBC, CMP #### [address] Comprehensive Metabolic Pane mariano 02-23-2023 Albumin [Mass/Vol] 4.4 g/dL Normal 3.5-5.7 [facility] Comment on above: Performed By: #### P AB, CBC, CMP #### [address] Albumin/Globulin [Mass ratio] 1.3 {ratio} Normal [facility] Comment on above: Performed By: #### P AB, CBC, CMP #### [address] ALP [Catalytic activity/Vol] 124 U/L High 34-104 [facility] Comment on above: Performed By: #### P AB, CBC, CMP #### [address] ALT [Catalytic activity/Vol] 104 U/L High 7-52 [facility] Comment on above: Performed By: #### P AB, CBC, CMP #### [address] Anion gap [Moles/Vol] 11.3 mmol/L Normal 6.0-15.0 [facility] Comment on above: Performed By: #### P AB, CBC, CMP #### [facility] [address] [place] [address] [place] AST [Catalytic activity/Vol] 49 U/L High 13-39 [facility] Comment on above: Performed By: #### P AB, CBC, CMP #### [facility] [address] [place] [address] [place] Bilirubin [Mass/Vol] 0.3 mg/dL Normal 0.3-1.0 [facility] Comment on above: Performed By: #### P AB, CBC, CMP #### [facility] [address] Calcium [Mass/Vol] 9.4 mg/dL Normal 8.6-10.3 [facility] Comment on above: Performed By: #### P AB, CBC, CMP #### [facility] [address] Chloride [Moles/Vol] 106 mmol/L Normal 98-107 [facility] Comment on above: Performed By: #### P AB, CBC, CMP #### [facility] [address] [place] [address] [place] CO2 [Moles/Vol] 24.6 mmol/L Normal 21.0-31.0 [facility] Comment on above: Performed By: #### P AB, CBC, CMP #### [facility] [address] [place] [address] [place] Creatinine [Mass/Vol] 0.67 mg/dL Normal 0.60-1.20 [facility] Comment on above: Performed By: #### P AB, CBC, CMP #### [facility] [address] [place] [address] [place] Creatinine Clr Calc Pharmacy 111.80 [facility] Comment on above: Performed By: #### P AB, CBC, CMP #### [facility] [address] [place] [address] [place] GFR/1.73 sq M.predicted MDRD (S/P/Bld) [Vol rate/Area] mL/min/{1.73_m2} [facility] Comment on above: Performed By: #### P AB, CBC, CMP #### [facility] [address] Globulin (S) [Mass/Vol] 3.5 g/dL Normal [facility] Comment on above: Performed By: #### P AB, CBC, CMP #### [address] Glucose [Mass/Vol] 89 mg/dL Normal 70-100 [facility] Comment on above: Result Comment: [place] Glucose Reference Range is dependent on time and content of last meal. Glucose of more than 200 mg/dL in a nonstressed, ambulatory subject supports the diagnosis of Diabetes Mellitus. ADA recommended reference range Performed By: #### P AB, CBC, CMP #### [address] Potassium [Moles/Vol] 3.9 mmol/L Normal 3.5-5.1 [facility] Comment on above: Performed By: #### P AB, CBC, CMP #### [address] Protein [Mass/Vol] 7.9 g/dL Normal 6.4-8.9 [facility] Comment on above: Performed By: #### P AB, CBC, CMP #### [address] Sodium [Moles/Vol] 138 mmol/L Normal 136-145 [facility] Comment on above: Performed By: #### P AB, CBC, CMP #### [address] Urea nitrogen [Mass/Vol] 16 mg/dL Normal 7-25 [facility] Comment on above: Performed By: #### P AB, CBC, CMP #### [address] Prealbuminon 02-23-2023 Prealbumin [Mass/Vol] 28.6 mg/dL Normal 17.0-34.0 [facility] Comment on above: Result Comment: PERF ORMED BY: [address] [id number] PATHOLOGIST AUTO BODY REPAIR TEACHER MARITO MARIA M.D. Performed By: #### P AB, CBC, CMP #### [facility] [address] Basic Metab w/rfx MGon 02-21 Anion gap [Moles/Vol] 11 mmol/L Normal 9-17 [facility] Comment on above: Performed By: #### B MPX #### [facility] [facility] [employer] [address] [place] [address] 79551 Pricing Strategist: Agustin Logan MD Calcium [Mass/Vol] 9.0 mg/dL Normal 8.6-10.4 [facility] Comment on above: Performed By: #### B MPX #### [address] [address] Pricing Strategist: Agustin Logan MD Chloride [Moles/Vol] 105 mmol/L Normal 98-107 [facility] Comment on above: Performed By: #### B MPX #### [address] [address] Pricing Strategist: Agustin Logan MD CO2 [Moles/Vol] 24 mmol/L Normal 20-31 [facility] Comment on above: Performed By: #### B MPX #### [facility] [employer] [address] [place] [address] Pricing Strategist: Agustin Logan MD Creatinine [Mass/Vol] 0.51 mg/dL Normal 0.50-0.90 [facility] Comment on above: Performed By: #### B MPX #### [facility] [employer] [address] [place] [address] Pricing Strategist: Agustin Logan MD GFR/1.73 sq M.predicted among non-blacks MDRD (S/P/Bld) [Vol rate/Area] mL/min/{1.73_m2} Normal >60 [facility] Comment on above: Result Comment: These [...] secretion. Performed By: #### B MPX #### [facility] [address] [place] [address] Pricing Strategist: Agustin Logan MD Glucose [Mass/Vol] 94 mg/dL Normal 70-99 [facility] Comment on above: Performed By: #### B MPX #### [facility] [employer] [address] [place] [address] Pricing Strategist: Agustin Logan MD Potassium [Moles/Vol] 4.2 mmol/L Normal 3.7-5.3 [facility] Comment on above: Performed By: #### B MPX #### [facility] [address] [place] [address] Pricing Strategist: Agustin Logan MD Sodium [Moles/Vol] 140 mmol/L Normal 135-144 [facility] Comment on above: Performed By: #### B MPX #### [facility] [employer] [address] [place] [address] Pricing Strategist: Agustin Logan MD Urea nitrogen [Mass/Vol] 11 mg/dL Normal 6-20 [facility] Comment on above: Performed By: #### B MPX #### [facility] [address] [place] [address] Pricing Strategist: Agustin Logan MD Basic Metabolic Panel w/ Ref desean to MGon 02-21-2023 Anion gap [Moles/Vol] 11 mmol/L 9 - 17 mmol/L [facility] Calcium [Mass/Vol] 9.0 mg/dL 8.6 - 10. 4 mg/dL [facility] Chloride [Moles/Vol] 105 mmol/L 98 - 107 mmol/L [facility] CO2 [Moles/Vol] 24 mmol/L 20 - 31 mmol/L [facility] Creatinine [Mass/Vol] 0.51 mg/dL 0.50 - 0.90 mg/dL [facility] GFR/1.73 sq M.predicted MDRD (S/P/Bld) [Vol rate/Area] - PINF [facility] Comment on above: These results [...] [Mass/Vol] 94 mg/dL 70 - 99 mg/dL [facility] Potassium [Moles/Vol] 4.2 mmol/L 3.7 - 5.3 mmol/L [facility] Sodium [Moles/Vol] 140 mmol/L 135 - 144 mmol/L [facility] Urea nitrogen [Mass/Vol] 11 mg/dL 6 - 20 mg/dL [facility] Basic Metab w/rfx MGon 02-20 Anion gap [Moles/Vol] 14 mmol/L Normal 9-17 [facility] Comment on above: Performed By: #### B MPX #### [employer] [address] [place] [address] Pricing Strategist: Agustin Logan MD Calcium [Mass/Vol] 8.7 mg/dL Normal 8.6-10.4 [facility] Comment on above: Performed By: #### B MPX #### [facility] [place] [id number] Pricing Strategist: Agustin Logan MD Chloride [Moles/Vol] 104 mmol/L Normal 98-107 [facility] Comment on above: Performed By: #### B MPX #### [facility] [employer] [address] [place] [address] Pricing Strategist: Agustin Logan MD CO2 [Moles/Vol] 20 mmol/L Normal 20-31 [facility] Comment on above: Performed By: #### B MPX #### [facility] [employer] [address] [place] [address] Pricing Strategist: Agustin Logan MD Creatinine [Mass/Vol] 0.48 mg/dL Low 0.50-0.90 [facility] Comment on above: Performed By: #### B MPX #### [facility] [employer] [address] [place] [address] Pricing Strategist: Agustin Logan MD GFR/1.73 sq M.predicted among non-blacks MDRD (S/P/Bld) [Vol rate/Area] mL/min/{1.73_m2} Normal >60 [facility] Comment on above: Result Comment: These [...] secretion. Performed By: #### B MPX #### [facility] [employer] [address] [place] [address] Pricing Strategist: Agustin Logan MD Glucose [Mass/Vol] 93 mg/dL Normal 70-99 [facility] Comment on above: Performed By: #### B MPX #### [facility] [employer] [address] [place] [address] Pricing Strategist: Agustin Logan MD Potassium [Moles/Vol] 4.0 mmol/L Normal 3.7-5.3 [facility] Comment on above: Performed By: #### B MPX #### [facility] [address] [place], [place] [phone] Pricing Strategist: Agustin Logan MD Sodium [Moles/Vol] 138 mmol/L Normal 135-144 [facility] Comment on above: Performed By: #### B MPX #### [facility] [address] [place] [address] Pricing Strategist: Agustin Logan MD Urea nitrogen [Mass/Vol] 13 mg/dL Normal 6-20 [facility] Comment on above: Performed By: #### B MPX #### [facility] [address] [place], [place] [id number] Pricing Strategist: Agustin Logan MD Basic Metabolic Panel w/ Ref desean to [facility] 02-20-2023 Anion gap [Moles/Vol] 14 mmol/L 9 - 17 mmol/L [email or web address] [employer] [facility] [employer] Calcium [Mass/Vol] 8.7 mg/dL 8.6 - 10. 4 mg/dL [facility] Chloride [Moles/Vol] 104 mmol/L 98 - 107 mmol/L [facility] CO2 [Moles/Vol] 20 mmol/L 20 - 31 mmol/L [email or web address] [employer] [facility] Creatinine [Mass/Vol] 0.48 mg/dL Low 0.50 - 0.90 mg/dL [email or web address] [employer] [facility] GFR/1.73 sq M.predicted MDRD (S/P/Bld) [Vol rate/Area] - PINF [facility] Comment on above: These results [...] [Mass/Vol] 93 mg/dL 70 - 99 mg/dL [email or web address] [employer] [facility] Interpretation and review of laboratory results Abnormal [email or web address] [employer] [facility] Potassium [Moles/Vol] 4.0 mmol/L 3.7 - 5.3 mmol/L [facility] Sodium [Moles/Vol] 138 mmol/L 135 - 144 mmol/L [facility] Urea nitrogen [Mass/Vol] 13 mg/dL 6 - 20 mg/dL [facility] Basic Metab w/rfx MGon 02-19 Anion gap [Moles/Vol] 9 mmol/L Normal 9-17 [facility] Comment on above: Performed By: #### U A #### [address] [address] Pricing Strategist: Agustin Logan MD Calcium [Mass/Vol] 8.9 mg/dL Normal 8.6-10.4 [facility] Comment on above: Performed By: #### U A #### [address] [address] Pricing Strategist: Agustin Logan MD Chloride [Moles/Vol] 105 mmol/L Normal 98-107 [facility] Comment on above: Performed By: #### U A #### [address] [address] Pricing Strategist: Agustin Logan MD CO2 [Moles/Vol] 24 mmol/L Normal 20-31 [facility] Comment on above: Performed By: #### U A #### [address] [address] Pricing Strategist: Agustin Logan MD Creatinine [Mass/Vol] 0.42 mg/dL Low 0.50-0.90 [facility] Comment on above: Performed By: #### U A #### [address] [address] Pricing Strategist: Agustin Logan MD GFR/1.73 sq M.predicted among non-blacks MDRD (S/P/Bld) [Vol rate/Area] mL/min/{1.73_m2} Normal >60 [facility] Comment on above: Result Comment: These [...] secretion. Performed By: #### U A #### [facility] [address] [place] [address] Pricing Strategist: Agustin Logan MD Glucose [Mass/Vol] 85 mg/dL Normal 70-99 [facility] Comment on above: Performed By: #### U A #### [facility] [address] [place] [address] Pricing Strategist: Agustin Logan MD Potassium [Moles/Vol] 4.1 mmol/L Normal 3.7-5.3 [facility] Comment on above: Performed By: #### U A #### [employer] [address] [place] [address] Pricing Strategist: Agustin Logan MD Sodium [Moles/Vol] 138 mmol/L Normal 135-144 [facility] Comment on above: Performed By: #### U A #### [facility] [address] [place] [address] Pricing Strategist: Agustin Logan MD Urea nitrogen [Mass/Vol] 8 mg/dL Normal 6-20 [facility] Comment on above: Performed By: #### U A #### [employer] [address] [place] [address] 69856 Pricing Strategist: Agustin Logan MD Basic Metabolic Panel w/ Ref desean to MGon 02-19-2023 Anion gap [Moles/Vol] 9 mmol/L 9 - 17 mmol/L [facility] Calcium [Mass/Vol] 8.9 mg/dL 8.6 - 10. 4 mg/dL [facility] Chloride [Moles/Vol] 105 mmol/L 98 - 107 mmol/L [facility] CO2 [Moles/Vol] 24 mmol/L 20 - 31 mmol/L [facility] Creatinine [Mass/Vol] 0.42 mg/dL Low 0.50 - 0.90 mg/dL [facility] GFR/1.73 sq M.predicted MDRD (S/P/Bld) [Vol rate/Area] - PINF [facility] Comment on above: These results [...] [Mass/Vol] 85 mg/dL 70 - 99 mg/dL [facility] Interpretation and review of laboratory results Abnormal [facility] Potassium [Moles/Vol] 4.1 mmol/L 3.7 - 5.3 mmol/L [facility] Sodium [Moles/Vol] 138 mmol/L 135 - 144 mmol/L [facility] Urea nitrogen [Mass/Vol] 8 mg/dL 6 - 20 mg/dL [facility] CBC with Auto Differentialon 02-19-2023 Basophils (Bld) [#/Vol] [facility] Basophils/100 WBC (Bld) 0 % 0 - 2 % [facility] Eosinophils (Bld) [#/Vol] 0.17 10*3/uL [facility] Eosinophils/100 WBC (Bld) 3 % 1 - 4 % [facility] Erythrocyte distribution width (RBC) [Ratio] 13.7 % 11.8 - 14.4 % [facility] Hematocrit (Bld) [Volume fraction] 34.9 % Low 36.3 - 47.1 % [facility] Hemoglobin (Bld) [Mass/Vol] 11.1 g/dL Low 11.9 - 15.1 g/dL [facility] Immature granulocytes (Bld) [#/Vol] 0.03 10*3/uL [facility] Immature granulocytes/100 WBC (Bld) 1 % High 0 [facility] Interpretation and review of laboratory results Abnormal [facility] Lymphocytes/100 WBC (Bld) 23 % Low 24 - 43 % [facility] Lymphocytes/100 WBC (Bld) 1.39 % [facility] MCH (RBC) [Entitic mass] 29.4 pg 25.2 - 33.5 pg [facility] MCHC (RBC) [Mass/Vol] 31.8 g/dL 28.4 - 34.8 g/dL [facility] MCV (RBC) [Entitic vol] 92.6 fL 82.6 - 102.9 fL [facility] Monocytes/100 WBC (Bld) 6 % 3 - 12 % [facility] Monocytes/100 WBC (Bld) 0.37 % [facility] Neutrophils/100 WBC (Bld) 67 % High 36 - 65 % [facility] Nucleated RBC/100 WBC (Bld) [Ratio] 0.0 % 0.0 per 100 WBC [facility] Platelet mean volume (Bld) [Entitic vol] 9.6 fL 8.1 - 13.5 fL [facility] Platelets (Bld) [#/Vol] 251 10*3/uL [facility] RBC (Bld) [#/Vol] 3.77 10*6/uL Low 3.95 - 5.11 m/uL [facility] Segmented neutrophils/100 WBC (Bld) 4.05 % [facility] WBC other (Bld) [#/Vol] 6.0 [facility] CBC with Diffon 02-19-2023 Abs. Basophil <0.03 Normal 0.00-0.20 [facility] Comment on above: Performed By: #### U A #### [employer] [place], [place] [id number] Pricing Strategist: Agustin Logan MD Abs.Imm.Granulocyte 0.03 k/uL Normal 0.00-0.30 [facility] Comment on above: Performed By: #### U A #### [address] [address] Pricing Strategist: Agustin Logan MD Abs.Neutrophil (Seg) 4.05 k/uL Normal 1.50-8.10 [facility] Comment on above: Performed By: #### U A #### [address] [address] Pricing Strategist: Agustin Logan MD Basophils/100 WBC (Bld) 0 % Normal 0-2 [facility] Comment on above: Performed By: #### U A #### [address] [address] Pricing Strategist: Agustin Logan MD Eosinophils (Bld) [#/Vol] 0.17 10*3/uL Normal 0.00-0.44 [facility] Comment on above: Performed By: #### U A #### [address] [address] Pricing Strategist: Agustin Logan MD Eosinophils/100 WBC (Bld) 3 % Normal 1-4 [facility] Comment on above: Performed By: #### U A #### [address] [address] Pricing Strategist: Agustin Logan MD Erythrocyte distribution width (RBC) [Ratio] 13.7 % Normal 11.8-14.4 [facility] Comment on above: Performed By: #### U A #### [address] [address] Pricing Strategist: Agustin Logan MD Hematocrit (Bld) [Volume fraction] 34.9 % Low 36.3-47.1 [facility] Comment on above: Performed By: #### U A #### [address] [address] Pricing Strategist: Agustin Logan MD Hemoglobin (Bld) [Mass/Vol] 11.1 g/dL Low 11.9-15.1 [facility] Comment on above: Performed By: #### U A #### [address] [address] Pricing Strategist: Agustin Logan MD Immature granulocytes/100 WBC (Bld) 1 % High 0 [facility] Comment on above: Performed By: #### U A #### [place] [address] Pricing Strategist: Agustin Logan MD Lymphocytes (Bld) [#/Vol] 1.39 10*3/uL Normal 1.10-3.70 [facility] Comment on above: Performed By: #### U A #### [place] [address] Pricing Strategist: Agustin Logan MD Lymphocytes/100 WBC (Bld) 23 % Low 24-43 [facility] Comment on above: Performed By: #### U A #### [address] [address] Pricing Strategist: Agustin Logan MD MCH (RBC) [Entitic mass] 29.4 pg Normal 25.2-33.5 [facility] Comment on above: Performed By: #### U A #### [place] [address] Pricing Strategist: Agustin Logan MD MCHC (RBC) [Mass/Vol] 31.8 g/dL Normal 28.4-34.8 [facility] Comment on above: Performed By: #### U A #### [address] [address] Pricing Strategist: Agustin Logan MD MCV (RBC) [Entitic vol] 92.6 fL Normal 82.6-102.9 [facility] Comment on above: Performed By: #### U A #### [address] [address] Pricing Strategist: Agustin Logan MD Monocytes (Bld) [#/Vol] 0.37 10*3/uL Normal 0.10-1.20 [facility] Comment on above: Performed By: #### U A #### [address] [address] Pricing Strategist: Agustin Logan MD Monocytes/100 WBC (Bld) 6 % Normal 3-12 [facility] Comment on above: Performed By: #### U A #### [address] [address] Pricing Strategist: Agustin Logan MD Neutrophil (Seg) 67 % High 36-65 [facility] Comment on above: Performed By: #### U A #### [address] [address] Pricing Strategist: Agustin Logan MD NRBC Automated 0.0 per 100 WBC Normal 0.0 [facility] Comment on above: Performed By: #### U A #### [address] [address] Pricing Strategist: Agustin Logan MD Platelet mean volume (Bld) [Entitic vol] 9.6 fL Normal 8.1-13.5 [facility] Comment on above: Performed By: #### U A #### [address] [address] Pricing Strategist: Agustin Logan MD Platelets (Bld) [#/Vol] 251 10*3/uL Normal 138-453 [facility] Comment on above: Performed By: #### U A #### [address] [address] Pricing Strategist: Agustin Logan MD RBC (Bld) [#/Vol] 3.77 10*6/uL Low 3.95-5.11 [facility] Comment on above: Performed By: #### U A #### [employer] [address] [place] [address] Pricing Strategist: Agustin Logan MD WBC (Bld) [#/Vol] 6.0 10*3/uL Normal 3.5-11.3 [facility] Comment on above: Performed By: #### U A #### [employer] [address] [place] [address] Pricing Strategist: Agustin Logan MD CT HEAD WO CONTRASTon 2022 Small subdural hemor rhage adjacent to the left cerebral hemisphere that is similar in size compared to prior exam. Stable small hemorrhagic contusion in the left temporal lobe with adjacent edema. [facility] EXAMINATION: CT OF THE HEAD [...] of the visualized skull or soft tissues. [facility] Neva Nicole MD - 02/18/2023 [...] the left temporal lobe with adjacent edema. [facility] Radiology Study observation (narrative) [facility] Ammoniaon 02-15-2023 Ammonia (P) [Moles/Vol] 31 umol/L Normal - [facility] Comment on above: Performed By: #### B MPX #### [facility] [place] [facility] [address] [place], [place] [id number] Pricing Strategist: Agustin Logan MD Ammonia (P) [Moles/Vol] 31 umol/L - umol/L [facility] BLOOD GAS, VENOUSon 02-16-20 Carboxyhemoglobin (Bld) [Mass fraction] 1.8 % 0 - 5 % [facility] Comment on above: Reference Range: Non-Smokers 0-2% Average Smoker 2-4% Heavy Smoker <10% HCO3 (Bld) [Moles/Vol] 22.6 mmol/L Low 24 - 30 mmol/L [facility] Interpretation and review of laboratory results Abnormal [facility] Negative Base Excess, Nicola 2.2 mmol/L High 0.0 - 2.0 mmol/L [facility] Oxygen saturation in Blood 89.2 % High 60.0 - 85.0 % [facility] Oxygen/Inspired gas Respiratory system --on ventilator INFORMATION NOT PROVIDED [facility] pCO2, Nicola 41.3 [facility] pH, Nicola 7.357 7.320 - 7.420 [facility] pO2, Nicola 56.9 High [facility] CBC with Auto Differentialon 02-15-2023 Basophils (Bld) [#/Vol] [facility] Immature granulocytes (Bld) [#/Vol] [facility] Interpretation and review of laboratory results Abnormal [facility] Lymphocytes/100 WBC (Bld) 1.40 % [facility] Monocytes/100 WBC (Bld) 0.49 % [facility] Neutrophils/100 WBC (Bld) 67 % High 36 - 65 % [facility] Nucleated RBC/100 WBC (Bld) [Ratio] 0.0 % 0.0 per 100 WBC [facility] Segmented neutrophils/100 WBC (Bld) 4.07 % [facility] WBC other (Bld) [#/Vol] 6.1 [facility] CBC with Diffon 02-15-2023 Abs. Basophil <0.03 Normal 0.00-0.20 [facility] Comment on above: Performed By: #### B MG JOSE, CDP #### [employer] [address] [place] [id number] Pricing Strategist: Agustin Logan MD Abs.Imm.Granulocyte <0.03 Normal 0.00-0.30 [facility] Comment on above: Performed By: #### B MG JOSE, CDP #### [facility] [address] [place], [place] [id number] Pricing Strategist: Agustin Logan MD Abs.Neutrophil (Seg) 4.07 k/uL Normal 1.50-8.10 [facility] Comment on above: Performed By: #### B MP, MG, CDP #### [facility] [address] [place] [address] Pricing Strategist: Agustin Logan MD Lymphocytes (Bld) [#/Vol] 1.40 10*3/uL Normal 1.10-3.70 [facility] Comment on above: Performed By: #### B MP, MG, CDP #### [facility] [address] [place] [address] Pricing Strategist: Agustin Logan MD Monocytes (Bld) [#/Vol] 0.49 10*3/uL Normal 0.10-1.20 [facility] Comment on above: Performed By: #### B MP, MG, CDP #### [facility] [place] [facility] [employer] [address] [place] [address] Pricing Strategist: Agustin Logan MD Neutrophil (Seg) 67 % High 36-65 [facility] Comment on above: Performed By: #### B MP, MG, CDP #### [facility] [address] [place] [address] Pricing Strategist: Agustin Logan MD NRBC Automated 0.0 per 100 WBC Normal 0.0 [facility] Comment on above: Performed By: #### B MP, MG, CDP #### [facility] [address] [place] [address] Pricing Strategist: Agustin Logan MD WBC (Bld) [#/Vol] 6.1 10*3/uL Normal 3.5-11.3 [facility] Comment on above: Performed By: #### B MP, MG, CDP #### [employer] [address] [place] [address] Pricing Strategist: Agustin Logan MD Basophils/100 WBC (Bld) 0 % Normal 0-[address] [facility] Comment on above: Performed By: #### B MP, MG, CDP #### [facility] [address] [place] [address] Pricing Strategist: Agustin Logan MD Eosinophils (Bld) [#/Vol] 0.09 10*3/uL Normal 0.00-0.44 [facility] Comment on above: Performed By: #### B MP, MG, CDP #### [facility] [address] [place] [address] Pricing Strategist: Agustin Logan MD Eosinophils/100 WBC (Bld) 2 % Normal 1-4 [facility] Comment on above: Performed By: #### B MP, MG, CDP #### [employer] [address] [place] [address] Pricing Strategist: Agustin Logan MD Erythrocyte distribution width (RBC) [Ratio] 14.1 % Normal 11.8-14.4 [facility] Comment on above: Performed By: #### B MP, MG, CDP #### [facility] [employer] [address] [place] [address] Pricing Strategist: Agustin Logan MD Hematocrit (Bld) [Volume fraction] 35.3 % Low 36.3-47.1 [facility] Comment on above: Performed By: #### B MP, MG, CDP #### [employer] [address] [place] [address] Pricing Strategist: Agustin Logan MD Hemoglobin (Bld) [Mass/Vol] 11.1 g/dL Low 11.9-15.1 [facility] Comment on above: Performed By: #### B MP, MG, CDP #### [facility] [employer] [address] [place] [address] Pricing Strategist: Agustin Logan MD Immature granulocytes/100 WBC (Bld) 0 % Normal 0 [facility] Comment on above: Performed By: #### B MP, MG, CDP #### [facility] [employer] [address] [place] [address] Pricing Strategist: Agustin Logan MD Lymphocytes/100 WBC (Bld) 23 % Low 24-43 [facility] Comment on above: Performed By: #### B JOSE MG, CDP #### [facility] [address] [place] [address] Pricing Strategist: Agustin Logan MD MCH (RBC) [Entitic mass] 29.1 pg Normal 25.2-33.5 [facility] Comment on above: Performed By: #### B JOSE MG, CDP #### [facility] [address] [place] [address] Pricing Strategist: Agustin Logan MD MCHC (RBC) [Mass/Vol] 31.4 g/dL Normal 28.4-34.8 [facility] Comment on above: Performed By: #### B JOSE MG, CDP #### [facility] [facility] [employer] [address] [place] [address] Pricing Strategist: Agustin Logan MD MCV (RBC) [Entitic vol] 92.4 fL Normal 82.6-102.9 [facility] Comment on above: Performed By: #### B JOSE MG, CDP #### [facility] [facility] [employer] [address] [place] [address] Pricing Strategist: Agustin Logan MD Monocytes/100 WBC (Bld) 8 % Normal 3-12 [facility] Comment on above: Performed By: #### B JOSE MG, CDP #### [facility] [address] [place] [address] Pricing Strategist: Agustin Logan MD Platelet mean volume (Bld) [Entitic vol] 10.1 fL Normal 8.1-13.5 [facility] Comment on above: Performed By: #### B JOSE MG, CDP #### [employer] [address] [place] [address] Pricing Strategist: Agustin Logan MD Platelets (Bld) [#/Vol] 224 10*3/uL Normal 138-453 [facility] Comment on above: Performed By: #### B MG JOSE, CDP #### [employer] [address] [place] [address] Pricing Strategist: Agustin Logan MD RBC (Bld) [#/Vol] 3.82 10*6/uL Low 3.95-5.11 [facility] Comment on above: Performed By: #### B MG JOSE, CDP #### [employer] [address] [place] [address] Pricing Strategist: Agustin Logan MD Calcium, Ionicon 02-15-2023 Calcium [Moles/Vol] 1.14 mmol/L Normal 1.13-1.33 [facility] Comment on above: Performed By: #### I OCAL, VBG #### [employer] [address] [place] [address] Pricing Strategist: Agustin Logan MD Calcium, Ionizedon 3 Calcium.ionized (Bld) [Moles/Vol] 1.14 mmol/L 1.13 - 1.33 mmol/L [facility] Comp Metabolic Profon 2022 Albumin [Mass/Vol] 3.4 g/dL Low 3.5-5.2 [facility] Comment on above: Performed By: #### B MG JOSE, CDP #### [employer] [address] [place] [address] Pricing Strategist: Agustin Logan MD Albumin/Glob Ratio 1.3 Normal 1.0-2.5 [facility] Comment on above: Performed By: #### B MG JOSE, CDP #### [employer] [address] [place] [address] Pricing Strategist: Agustin Logan MD Alkaline Phos 59 U/L Normal 35-104 [facility] Comment on above: Performed By: #### B MG JOSE, CDP #### [employer] [address] [place] [address] Pricing Strategist: Agustin Logan MD ALT [Catalytic activity/Vol] 7 U/L Normal 5-33 [facility] Comment on above: Performed By: #### B MP, MG, CDP #### [facility] [address] [place] [address] Pricing Strategist: Agustin Logan MD Anion gap [Moles/Vol] 9 mmol/L Normal 9-17 [facility] Comment on above: Performed By: #### B MP, MG, CDP #### [facility] [facility] [employer] [address] [place] [address] Pricing Strategist: Agustin Logan MD AST [Catalytic activity/Vol] 11 U/L Normal <32 [facility] Comment on above: Performed By: #### B MP, MG, CDP #### [facility] [facility] [employer] [address] [place] [address] Pricing Strategist: Agustin Logan MD Bilirubin [Mass/Vol] 0.4 mg/dL Normal 0.3-1.2 [facility] Comment on above: Performed By: #### B MP, MG, CDP #### [facility] [address] [place] [address] Pricing Strategist: Agustin Logan MD Calcium [Mass/Vol] 8.1 mg/dL Low 8.6-10.4 [facility] Comment on above: Performed By: #### B MP, MG, CDP #### [facility] [address] [place] [address] Pricing Strategist: Agustin Logan MD Chloride [Moles/Vol] 108 mmol/L High 98-107 [facility] Comment on above: Performed By: #### B MP, MG, CDP #### [facility] [address] [place] [address] Pricing Strategist: Agustin Logan MD CO2 [Moles/Vol] 20 mmol/L Normal 20-31 [facility] Comment on above: Performed By: #### B MP MG, CDP #### [facility] [facility] [employer] [address] [place] [address] Pricing Strategist: Agustin Logan MD Creatinine [Mass/Vol] 0.44 mg/dL Low 0.50-0.90 [facility] Comment on above: Performed By: #### B MP MG, CDP #### [facility] [facility] [employer] [address] [place] [address] Pricing Strategist: Agustin Logan MD GFR/1.73 sq M.predicted among non-blacks MDRD (S/P/Bld) [Vol rate/Area] mL/min/{1.73_m2} Normal >60 [facility] Comment on above: Result Comment: These [...] By: #### B JOSE MG, CDP #### [facility] [facility] [employer] [address] [place] [address] Pricing Strategist: Agustin Logan MD Glucose [Mass/Vol] 103 mg/dL High 70-99 [facility] Comment on above: Performed By: #### B MP MG, CDP #### [facility] [employer] [address] [place] [address] Pricing Strategist: Agustin Logan MD Potassium [Moles/Vol] 4.0 mmol/L Normal 3.7-5.3 [facility] Comment on above: Performed By: #### B MP MG, CDP #### [facility] [facility] [employer] [address] [place] [address] Pricing Strategist: Agustin Logan MD Protein [Mass/Vol] 6.0 g/dL Low 6.4-8.3 [facility] Comment on above: Performed By: #### B MG JOSE, CDP #### [facility] [address] [place], [place] [id number] Pricing Strategist: Agustin Logan MD Sodium [Moles/Vol] 137 mmol/L Normal 135-144 [facility] Comment on above: Performed By: #### B MG JOSE, CDP #### [facility] [address] [place], [place] [phone] Pricing Strategist: Agustin Logan MD Urea nitrogen [Mass/Vol] 5 mg/dL Low 6-20 [facility] Comment on above: Performed By: #### B MG JOSE, CDP #### [facility] [address] [place], [place] [phone] Pricing Strategist: Agustin Logan MD [facility] Metabolic Pane [facility] 02-15-2023 Albumin [Mass/Vol] 3.4 g/dL Low 3.5 - 5.2 g/dL [facility] Albumin/Globulin [Mass ratio] 1.3 {ratio} 1.0 - 2.5 [facility] ALP [Catalytic activity/Vol] 59 U/L 35 - 104 U/L [facility] ALT [Catalytic activity/Vol] 7 U/L 5 - 33 U/L [facility] Anion gap [Moles/Vol] 9 mmol/L 9 - 17 mmol/L [facility] AST [Catalytic activity/Vol] 11 U/L NINF - 32 U/L [facility] Bilirubin [Mass/Vol] 0.4 mg/dL 0.3 - 1.2 mg/dL [facility] Calcium [Mass/Vol] 8.1 mg/dL Low 8.6 - 10. 4 mg/dL [facility] Chloride [Moles/Vol] 108 mmol/L High 98 - 107 mmol/L [facility] CO2 [Moles/Vol] 20 mmol/L 20 - 31 mmol/L [facility] Creatinine [Mass/Vol] 0.44 mg/dL Low 0.50 - 0.90 mg/dL [facility] GFR/1.73 sq M.predicted MDRD (S/P/Bld) [Vol rate/Area] - PINF [facility] Comment on above: These results [...] 103 mg/dL High 70 - 99 mg/dL [facility] Interpretation and review of laboratory results Abnormal [facility] Potassium [Moles/Vol] 4.0 mmol/L 3.7 - 5.3 mmol/L [facility] Protein [Mass/Vol] 6.0 g/dL Low 6.4 - 8.3 g/dL [facility] Sodium [Moles/Vol] 137 mmol/L 135 - 144 mmol/L [facility] Urea nitrogen [Mass/Vol] 5 mg/dL Low 6 - 20 mg/dL [facility] EKG 12 LeadOrdered By: Unkno wn Result on 02-15-2023 Atrial Rate 66 BPM [facility] P [place] 72 degrees [facility] P-R Interval 170 ms [facility] Q-T Interval 430 ms [facility] QRS Duration 86 ms [facility] QTc Calculation (Bazett) 450 ms [facility] R [place] 68 degrees [facility] T [place] 40 degrees [facility] Ventricular Rate 66 BPM [facility] EKG 12 Leadon 02-15-2023 Normal sinus rhythm with sinus arrhythmia Normal ECG No previous ECGs available [facility] STV MUSE Result, Unknown Prov ider - 02/15/2023 Normal sinus rhythm with sinus arrhythmia Normal ECG No previous ECGs available [facility] Lipaseon 02-15-2023 Lipase [Catalytic activity/Vol] 14 U/L Normal 13-60 [facility] Comment on above: Performed By: #### B MG JOSE, CDP #### [employer] [address] [place] [address] [id number] Pricing Strategist: Agustin Logan MD Lipase [Catalytic activity/Vol] 14 U/L 13 - 60 U/L [facility] Magnesiumon 02-15-2023 Magnesium [Mass/Vol] 1.9 mg/dL Normal 1.6-2.6 [facility] Comment on above: Performed By: #### B MG JOSE, CDP #### [employer] [address] [place] [address] Pricing Strategist: Agustin Logan MD Magnesium [Mass/Vol] 1.9 mg/dL 1.6 - 2.6 mg/dL [facility] No Panel Informationon 02-15 [facility] Phosphoruson 02-15-2023 Phosphate [Mass/Vol] 3.2 mg/dL 2.6 - 4.5 mg/dL [facility] Phosphorus, Inorg.on 023 Phosphorus, Inorg. 3.2 mg/dL Normal 2.6-4.5 [facility] Comment on above: Performed By: #### B MG JOSE, CDP #### [employer] [address] [place] [address] Pricing Strategist: Agustin Logan MD TSHon 02-15-2023 TSH Qn 4.33 m[IU]/L [facility] Thyroid Stim. Horm.on 2022 Thyroid Stim. Horm. 4.33 uIU/mL Normal 0.30-5.00 [facility] Comment on above: Performed By: #### B JOSE MG, CDP #### [employer] [address] [place] [address] [phone] Pricing Strategist: Agustin Logan MD Venous Blood Gaseson 06-26-2 023 Body Temp. 37.0 Normal [facility] Comment on above: Performed By: #### I OCMATTHEW VBG #### [facility] [address] [place] [address] Pricing Strategist: Agustin Logan MD Carboxy Hgb 1.8 % Normal 0-5 [facility] Comment on above: Result Comment: Reference Range: Non-Smokers 0-2% Average Smoker 2-4% Heavy Smoker <10% Performed By: #### I OCAL, VBG #### [facility] [address] [place] [address] [phone] Pricing Strategist: Agustin Logan MD FIO2 INFORMATION NOT PROVIDED Normal [facility] Comment on above: Performed By: #### I OCMATTHEW VBG #### [facility] [facility] [employer] [address] [place] [address] [phone] Pricing Strategist: Agustin Logan MD HCO3 (Bld) [Moles/Vol] 22.6 mmol/L Low 24-30 [facility] Comment on above: Performed By: #### I OCMATTHEW VBG #### [facility] [address] [place] [address] [phone] Pricing Strategist: Agustin Logan MD Negative Base Excess 2.2 mmol/L High 0.0-2.0 [facility] Comment on above: Performed By: #### I OCMATTHEW VBG #### [facility] [address] [place] [address] [phone] Pricing Strategist: Agustin Logan MD Oxygen saturation in Blood 89.2 % High 60.0-85.0 [facility] Comment on above: Performed By: #### I OCAL VBG #### [facility] [address] [place] [address] [phone] Pricing Strategist: Agustin Logan MD pCO2 41.3 mm Hg Normal 39-55 [facility] Comment on above: Performed By: #### I OCAL VBG #### [facility] [address] [place] [address] 94180 Pricing Strategist: Agustin Logan MD pH (Bld) 7.357 [pH] Normal 7.320-7.42 0 [facility] Comment on above: Performed By: #### I OCMATTHEW VBG #### [facility] [address] [place] [address] 81447 Pricing Strategist: Agustin Logan MD pO2 56.9 mm Hg High 30-50 [facility] Comment on above: Performed By: #### I ABHISHEK HONEYCUTT #### [facility] [address] [place] [address] 94325 Pricing Strategist: Agustin Logan MD Basic Metab w/rfx MGon 02-14 -2022 Potassium [Moles/Vol] 3.4 mmol/L Low 3.7-5.3 [facility] Comment on above: Performed By: #### B MP, MG, CDP #### [facility] [employer] [address] [place] [address] 98353 Pricing Strategist: Agustin Logan MD Anion gap [Moles/Vol] 16 mmol/L Normal 9-17 [facility] Comment on above: Performed By: #### B MP, MG, CDP #### [facility] [address] [place] [address] 06092 Pricing Strategist: Agustin Logan MD Calcium [Mass/Vol] 7.7 mg/dL Low 8.6-10.4 [facility] Comment on above: Performed By: #### B MP, MG, CDP #### [facility] [address] [place] [address] 86638 Pricing Strategist: Agustin Logan MD Chloride [Moles/Vol] 103 mmol/L Normal 98-107 [facility] Comment on above: Performed By: #### B MP, MG, CDP #### [facility] [address] [place] [address] 11571 Pricing Strategist: Agustin Logan MD CO2 [Moles/Vol] 15 mmol/L Low 20-31 [facility] Comment on above: Performed By: #### B JOSE MG, CDP #### [facility] [address] [place] [address] 40026 Pricing Strategist: Agustin Logan MD Creatinine [Mass/Vol] 0.36 mg/dL Low 0.50-0.90 [facility] Comment on above: Performed By: #### B MP MG, CDP #### [facility] [employer] [address] [place] [address] 71000 Pricing Strategist: Agustin Logan MD GFR/1.73 sq M.predicted among non-blacks MDRD (S/P/Bld) [Vol rate/Area] mL/min/{1.73_m2} Normal >60 [facility] Comment on above: Result Comment: These [...] By: #### B JOSE MG, CDP #### [facility] [employer] [address] [place] [address] 68747 Pricing Strategist: Agustin Logan MD Glucose [Mass/Vol] 105 mg/dL High 70-99 [facility] Comment on above: Performed By: #### B MP MG, CDP #### [facility] [employer] [address] [place] [address] 16752 Pricing Strategist: Agustin Logan MD Sodium [Moles/Vol] 134 mmol/L Low 135-144 [facility] Comment on above: Performed By: #### B MP MG, CDP #### [facility] [address] [place] [address] 25713 Pricing Strategist: Agustin Logan MD Urea nitrogen [Mass/Vol] 6 mg/dL Normal 6-20 [facility] Comment on above: Performed By: #### B MP, MG, CDP #### [facility] [facility] [address] [place] [address] Pricing Strategist: Agustin Logan MD Basic Metabolic Panel w/ Ref desean to MGon 02-14-2023 Anion gap [Moles/Vol] 16 mmol/L 9 - 17 mmol/L [facility] Calcium [Mass/Vol] 7.7 mg/dL Low 8.6 - 10. 4 mg/dL [facility] Chloride [Moles/Vol] 103 mmol/L 98 - 107 mmol/L [facility] CO2 [Moles/Vol] 15 mmol/L Low 20 - 31 mmol/L [facility] Creatinine [Mass/Vol] 0.36 mg/dL Low 0.50 - 0.90 mg/dL [facility] [employer] GFR/1.73 sq M.predicted MDRD (S/P/Bld) [Vol rate/Area] - PINF [facility] Comment on above: These results [...] 105 mg/dL High 70 - 99 mg/dL [facility]oud[facility] Interpretation and review of laboratory results Abnormal [facility] [employer] Potassium [Moles/Vol] 3.4 mmol/L Low 3.7 - 5.3 mmol/L [facility] Sodium [Moles/Vol] 134 mmol/L Low 135 - 144 mmol/L [facility] Urea nitrogen [Mass/Vol] 6 mg/dL 6 - 20 mg/dL [facility] CBC with Auto Differentialon 02-14-2023 Basophils (Bld) [#/Vol] 0.03 10*3/uL [facility] Basophils/100 WBC (Bld) 0 % 0 - 2 % [facility] Eosinophils (Bld) [#/Vol] [facility] Eosinophils/100 WBC (Bld) 0 % Low 1 - 4 % [facility] Erythrocyte distribution width (RBC) [Ratio] 13.6 % 11.8 - 14.4 % [facility] Hematocrit (Bld) [Volume fraction] 38.6 % 36.3 - 47.1 % [facility] Hemoglobin (Bld) [Mass/Vol] 11.9 g/dL 11.9 - 15.1 g/dL [facility] Immature granulocytes (Bld) [#/Vol] 0.03 10*3/uL [facility] Immature granulocytes/100 WBC (Bld) 0 % 0 [facility] Interpretation and review of laboratory results Abnormal [facility] Lymphocytes/100 WBC (Bld) 8 % Low 24 - 43 % [facility] Lymphocytes/100 WBC (Bld) 0.92 % Low [facility] MCH (RBC) [Entitic mass] 29.1 pg 25.2 - 33.5 pg [facility] MCHC (RBC) [Mass/Vol] 30.8 g/dL 28.4 - 34.8 g/dL [facility] MCV (RBC) [Entitic vol] 94.4 fL 82.6 - 102.9 fL [facility] Monocytes/100 WBC (Bld) 3 % 3 - 12 % [facility] Monocytes/100 WBC (Bld) 0.30 % [facility] Neutrophils/100 WBC (Bld) 88 % High 36 - 65 % [facility] Nucleated RBC/100 WBC (Bld) [Ratio] 0.0 % 0.0 per 100 WBC [facility] Platelet mean volume (Bld) [Entitic vol] 9.8 fL 8.1 - 13.5 fL [facility] Platelets (Bld) [#/Vol] 238 10*3/uL [facility] RBC (Bld) [#/Vol] 4.09 10*6/uL 3.95 - 5.11 m/uL [facility] Segmented neutrophils/100 WBC (Bld) 9.92 % High [facility] WBC other (Bld) [#/Vol] 11.2 [facility] CBC with Diffon 02-14-2023 Abs. Basophil 0.03 k/uL Normal 0.00-0.20 [facility] Comment on above: Performed By: #### B JOSE MG, CDP #### [employer] [address] [place] [address] 90232 Pricing Strategist: Agustin Logan MD Abs. Eosinophil <0.03 Normal 0.00-0.44 [facility] Comment on above: Performed By: #### B JOSE MG, CDP #### [employer] [address] [place] [address] 72109 Pricing Strategist: Agustin Logan MD Abs.Imm.Granulocyte 0.03 k/uL Normal 0.00-0.30 [facility] Comment on above: Performed By: #### B JOSE MG, CDP #### [employer] [address] [place] [address] 16905 Pricing Strategist: Agustin Logan MD Abs.Neutrophil (Seg) 9.92 k/uL High 1.50-8.10 [facility] Comment on above: Performed By: #### B JOSE MG, CDP #### [employer] [address] [place] [address] 74754 Pricing Strategist: Agustin Logan MD Basophils/100 WBC (Bld) 0 % Normal 0-2 [facility] Comment on above: Performed By: #### B JOSE MG, CDP #### [employer] [address] [place] [address] 94447 Pricing Strategist: Agustin Logan MD Eosinophils/100 WBC (Bld) 0 % Low 1-4 [facility] Comment on above: Performed By: #### B JOSE MG, CDP #### [employer] [address] [place] [address] 34831 Pricing Strategist: Agustin Logan MD Erythrocyte distribution width (RBC) [Ratio] 13.6 % Normal 11.8-14.4 [facility] Comment on above: Performed By: #### B MP, MG, CDP #### [facility] [address] [place] [address] 53308 Pricing Strategist: Agustin Logan MD Hematocrit (Bld) [Volume fraction] 38.6 % Normal 36.3-47.1 [facility] Comment on above: Performed By: #### B MP, MG, CDP #### [facility] [address] [place] [address] 48810 Pricing Strategist: Agustin Logan MD Hemoglobin (Bld) [Mass/Vol] 11.9 g/dL Normal 11.9-15.1 [facility] Comment on above: Performed By: #### B MP, MG, CDP #### [facility] [employer] [address] [place] [address] 36398 Pricing Strategist: Agustin Logan MD Immature granulocytes/100 WBC (Bld) 0 % Normal 0 [facility] Comment on above: Performed By: #### B MP, MG, CDP #### [facility] [address] [place] [address] 49138 Pricing Strategist: Agustin Logan MD Lymphocytes (Bld) [#/Vol] 0.92 10*3/uL Low 1.10-3.70 [facility] Comment on above: Performed By: #### B MP, MG, CDP #### [facility] [employer] [address] [place] [address] 97500 Pricing Strategist: Agustin Logan MD Lymphocytes/100 WBC (Bld) 8 % Low 24-43 [facility] Comment on above: Performed By: #### B MP, MG, CDP #### [facility] [address] [place] [address] 98835 Pricing Strategist: Agustin Logan MD MCH (RBC) [Entitic mass] 29.1 pg Normal 25.2-33.5 [facility] Comment on above: Performed By: #### B MP, MG, CDP #### [facility] [employer] [address] [place] [address] 08296 Pricing Strategist: Agustin Logan MD MCHC (RBC) [Mass/Vol] 30.8 g/dL Normal 28.4-34.8 [facility] Comment on above: Performed By: #### B MP, MG, CDP #### [address] [address] Pricing Strategist: Agustin Logan MD MCV (RBC) [Entitic vol] 94.4 fL Normal 82.6-102.9 [facility] Comment on above: Performed By: #### B MP, MG, CDP #### [facility] [employer] [address] [place] [address] 08041 Pricing Strategist: Agustin Logan MD Monocytes (Bld) [#/Vol] 0.30 10*3/uL Normal 0.10-1.20 [facility] Comment on above: Performed By: #### B MP, MG, CDP #### [facility] [employer] [address] [place] [address] 91760 Pricing Strategist: Agustin Logan MD Monocytes/100 WBC (Bld) 3 % Normal 3-12 [facility] Comment on above: Performed By: #### B MP, MG, CDP #### [facility] [employer] [address] [place] [address] 35550 Pricing Strategist: Agustin Logan MD Neutrophil (Seg) 88 % High 36-65 [facility] Comment on above: Performed By: #### B MP, MG, CDP #### [facility] [employer] [address] [place] [address] 31113 Pricing Strategist: Agustin Logan MD NRBC Automated 0.0 per 100 WBC Normal 0.0 [facility] Comment on above: Performed By: #### B MP MG, CDP #### [facility] [address] [place] [address] 66278 Pricing Strategist: Agustin Logan MD Platelet mean volume (Bld) [Entitic vol] 9.8 fL Normal 8.1-13.5 [facility] Comment on above: Performed By: #### B MP MG, CDP #### [employer] [address] [place] [address] 45569 Pricing Strategist: Agustin Logan MD Platelets (Bld) [#/Vol] 238 10*3/uL Normal 138-453 [facility] Comment on above: Performed By: #### B JOSE MG, CDP #### [facility] [address] [place] [address] 71715 Pricing Strategist: Agustin Logan MD RBC (Bld) [#/Vol] 4.09 10*6/uL Normal 3.95-5.11 [facility] Comment on above: Performed By: #### B JOSE MG, CDP #### [facility] [address] [place] [address] 77639 Pricing Strategist: Agustin Logan MD WBC (Bld) [#/Vol] 11.2 10*3/uL Normal 3.5-11.3 [facility] Comment on above: Performed By: #### B MP MG, CDP #### [facility] [address] [place] [address] 05151 Pricing Strategist: Agustin Logan MD CT CERVICAL SPINE WO [...] Gerald Martinez MD 02/14/23 Final result Normal [facility] No acute fracture de formity, collapse, or subluxation at the cervical spine. [facility] EXAMINATION: CT OF THE CERVICAL [...] There is no prevertebral soft tissue swelling. [facility] Gerald Martinez MD - 02/14/2023 [...] collapse, or subluxation at the cervical spine. [facility] CT CHEST ABDOMEN PELVIS W CO NTRASTon [...] Terence Hollingsworth MD 02/14/23 Final result Normal [facility] CT CHEST ABDOMEN PELVIS W CO NTRAST Additional Contrast? Noneon 02-14-[address] of the chest/abdomen/pelvis. [facility] EXAMINATION: CT OF THE CHEST, [...] acute bone or soft tissue abnormality evident. [facility] Terence Hollingsworth MD - 02/14/2023 [...] IMPRESSION: Unremarkable postcontrast CT of the chest/abdomen/pelvis. [facility] [employer] [facility] CT CHEST ABDOMEN PELVIS W CO NTRAST Additional Contrast? NoneOrdered By: Terence Hollingsworth on 02-14-2023 [facility] [employer] [facility]RE[facility] [employer] Work Phone: CT HEAD WO CONTRASTon 2022 [...] of a right-sided skull fracture without displacement. [facility] Neva Morgan MD - 02/14/2023 EXAMINATION: CT OF THE [...] lobe anteriorly. Stable nondisplaced right-sided skull fracture. [facility] Radiology Study observation (narrative) [facility] There is an acute romero [...] to Dr. Donahue on 02/14/2023 at 01:44. [facility] EXAMINATION: CT OF THE HEAD WITHOUT CONTRAST [...] of the scalp. No radiopaque foreign body. [facility] Gerald Martinez MD - 02/14/2023 EXAMINATION: CT [...] to Dr. Donahue on 02/14/2023 at 01:44. [facility] CT HEAD WO CONTRASTOrdered B y: Neva Nicole on 02-14-2023 [facility] [employer] Work Phone: CT HEAD WO CONTRASTOrdered B y: Gerald Martinez on 02-14-2023 [facility] [employer] Work Phone: CT LUMBAR SPINE TRAUMA RECON [...] Gerald Martinez MD 02/14/23 Final result Normal [facility] CT THORACIC SPINE TRAUMA REC ONSTRUCTIONon [...] Gerald Martinez MD 02/14/23 Final result Normal [facility] Calcium, Ionicon 02-14-2023 Calcium [Moles/Vol] 0.94 mmol/L Low 1.13-1.33 [facility] Comment on above: Performed By: #### B MP, MG, CDP #### [facility] [facility] [place] [address] Pricing Strategist: Agustin Logan MD Calcium, Ionizedon Calcium.ionized (Bld) [Moles/Vol] 0.94 mmol/L Low 1.13 - 1.33 mmol/L [facility] Drug Scr, Abuse, Uron 2022 Amphetamine(s),Ur Positive Abnormal NEG [facility] Comment on above: Result Comment: (Positive cutoff 1000 ng/mL) Performed By: #### B MPX #### [facility] [address] [place] [address] 67966 Pricing Strategist: Agustin Logan MD Barbiturate(s),Ur Negative Normal NEG [facility] Comment on above: Result Comment: (Positive cutoff 200 ng/mL) Performed By: #### B MPX #### [facility] [address] [place] [address] 18378 Pricing Strategist: Agustin Logan MD Benzodiazepine(s) Negative Normal NEG [facility] Comment on above: Result Comment: (Positive cutoff 200 ng/mL) Performed By: #### B MPX #### [facility] [employer] [address] [place] [address] 54319 Pricing Strategist: Agustin Logan MD Cannabinoid(s),Ur Negative Normal NEG [facility] Comment on above: Result Comment: (Positive cutoff 50 ng/mL) Performed By: #### B MPX #### [facility] [employer] [address] [place] [address] 94952 Pricing Strategist: Agustin Logan MD Cocaine Metabolite Negative Normal NEG [facility] Comment on above: Result Comment: (Positive cutoff 300 ng/mL) Performed By: #### B MPX #### [facility] [address] [place] [address] 78714 Pricing Strategist: Agustin Logan MD Fentanyl, Urine Negative Normal NEG [facility] Comment on above: Result Comment: (Positive cutoff 5 ng/ml) Performed By: #### B MPX #### [facility] [address] [place] [address] 27708 Pricing Strategist: Agustin Logan MD Interpretive Info Assay provides medic al screening only. The absence of expected drug(s) and/or Normal [facility] Comment on above: Result Comment: meta bolite(s) may indicate diluted or adulterated urine, limitations of testing or timing of collection. Testing for legal purposes should be confirmed by another method. To request confirmation of test result, please call the lab within 7 days of sample submission. Performed By: #### B MPX #### [facility] [address] [place] [address] 18576 Pricing Strategist: Agustin Logan MD Methadone Ql (U) Negative Normal NEG [facility] Comment on above: Result Comment: (Positive cutoff 300 ng/mL) Performed By: #### B MPX #### [facility] [address] [place] [address] 77414 Pricing Strategist: Agustin Logan MD Opiate(s), Ur Negative Normal NEG [facility] Comment on above: Result Comment: (Positive cutoff 300 ng/mL) Performed By: #### B MPX #### [facility] [address] [place] [address] 64655 Pricing Strategist: Agustin Logan MD Oxycodone, Urine Negative Normal NEG [facility] Comment on above: Result Comment: (Positive cutoff 100 ng/mL) Performed By: #### B MPX #### [facility] [address] [place] [address] 54365 Pricing Strategist: Agustin Logan MD Phencyclidine, Ur Negative Normal NEG [facility] Comment on above: Result Comment: (Positive cutoff 25 ng/mL) Performed By: #### B MPX #### [facility] [address] [place] [address] 68171 Pricing Strategist: Agustin Logan MD Drug screen multi urineon [...] 50 ng/mL) Cocaine Ql (U) Negative NEGATIVE [facility] Comment on above: (Positive cutoff 300 ng/mL) fentaNYL Ql (U) Negative NEGATIVE [facility] Comment on above: (Positive cutoff 5 ng/ml) Interpretation and review of laboratory results Abnormal [facility] Methadone Ql (U) Negative NEGATIVE [facility] Comment on above: (Positive cutoff 300 ng/mL) Opiates Screen Ql (U) Negative NEGATIVE [facility] Comment on above: (Positive cutoff 300 ng/mL) oxyCODONE Ql (U) Negative NEGATIVE [facility] Comment on above: (Positive cutoff 100 ng/mL) Phencyclidine Ql (U) Negative NEGATIVE [facility] Comment on above: (Positive cutoff 25 ng/mL) Test Information Assay provides medic al screening only. The absence of expected drug(s) and/or metabolite(s) may indicate diluted or adulterated urine, limitations of testing or timing of collection. [facility]DealHamsterOH[facility] Comment on above: Testing for legal pu rposes should be confirmed by another method. To request confirmation of test result, please call the lab within 7 days of sample submission. [email or web address] [employer] [facility] Hepatic Function Panelon Albumin [Mass/Vol] 4.0 g/dL 3.5 - 5.2 g/dL [email or web address] [employer] [facility] Albumin/Globulin [Mass ratio] 1.4 {ratio} 1.0 - 2.5 [facility]DealHamsterOH[facility] ALP [Catalytic activity/Vol] 55 U/L 35 - 104 U/L [facility]DealHamsterOH[facility] ALT [Catalytic activity/Vol] 9 U/L 5 - 33 U/L [facility]Deal[facility]sterOH[facility] AST [Catalytic activity/Vol] 15 U/L NINF - 32 U/L [facility]DealHamsterOH[facility] Bilirubin [Mass/Vol] 0.2 mg/dL Low 0.3 - 1.2 mg/dL [facility] Bilirubin.direct [Mass/Vol] mg/dL NINF - 0.3 mg/dL [email or web address] [employer] [facility] Bilirubin.indirect [Mass/Vol] Can not be calculated 0.0 - 1.0 mg/dL [email or web address] [employer] [facility] Interpretation and review of laboratory results Abnormal [facility] Protein [Mass/Vol] 6.9 g/dL 6.4 - 8.3 g/dL [facility] Lactic Acidon 02-14-2023 Lactic Acid,Whole Bl 1.3 mmol/L Normal 0.7-2.1 [facility] Comment on above: Performed By: #### B MPX #### [facility] [address] [place] [address] [id number] Pricing Strategist: Agustin Logan MD Lactic Acid, Whole Blood 1.3 mmol/L 0.7 - 2.1 mmol/L [facility] Lactic Acid,Whole Bl 2.6 mmol/L High 0.7-2.1 [facility] Comment on above: Performed By: #### B MP MG, CDP #### [facility] [address] [place] [address] [phone] Pricing Strategist: Agustin Logan MD Lactic Acid, Whole Blood 2.6 mmol/L High 0.7 - 2.1 mmol/L [facility] Liver Profileon 02-14-2023 Albumin [Mass/Vol] 4.0 g/dL Normal 3.5-5.2 [facility] Comment on above: Performed By: #### B MP MG, CDP #### [employer] [address] [place] [address] [id number] Pricing Strategist: Agustin Logan MD Albumin/Glob Ratio 1.4 Normal 1.0-2.5 [facility] Comment on above: Performed By: #### B MP MG, CDP #### [facility] [address] [place] [address] [phone] Pricing Strategist: Agustin Logan MD Alkaline Phos 55 U/L Normal 35-104 [facility] Comment on above: Performed By: #### B MP, MG, CDP #### [facility] [address] [place] [address] [phone] Pricing Strategist: Agustin Logan MD ALT [Catalytic activity/Vol] 9 U/L Normal 5-33 [facility] Comment on above: Performed By: #### B JOSE MG, CDP #### [facility] [address] [place] [address] 91617 Pricing Strategist: Agustin Logan MD AST [Catalytic activity/Vol] 15 U/L Normal <32 [facility] Comment on above: Performed By: #### B MP MG, CDP #### [facility] [address] [place] [address] Pricing Strategist: Agustin Logan MD Bilirubin [Mass/Vol] 0.2 mg/dL Low 0.3-1.2 [facility] Comment on above: Performed By: #### B JOSE MG, CDP #### [facility] [employer] [address] [place] [address] Pricing Strategist: Agustin Logan MD Bilirubin, Indirect Can not be calculated Normal 0.0-1 .0 [facility] Comment on above: Performed By: #### B MP MG, CDP #### [facility] [address] [place] [address] Pricing Strategist: Agustin Logan MD Bilirubin.indirect [Mass/Vol] mg/dL Normal <0.3 [facility] Comment on above: Performed By: #### B JOSE MG, CDP #### [facility] [address] [place] [address] Pricing Strategist: Agustin Logan MD Protein [Mass/Vol] 6.9 g/dL Normal 6.4-8.3 [facility] Comment on above: Performed By: #### B MP MG, CDP #### [facility] [address] [place] [address] Pricing Strategist: Agustin Logan MD MRSA DNA Probe, Nasalon 06-2 MRSA, DNA, Nasal Negative NEGATIVE [facility] Comment on above: NEGATIVE: MRSA DNA n ot detected by nucleic acid amplification. Results should be used as an adjunct to nosocomial control efforts to identify patients needing enhanced precautions. The test is not intended to identify patients with staphylococcal infections. Results should not be used to guide or monitor treatment for MRSA infections. Specimen Description .NASAL SWAB [facility] MRSA, DNA, Nasalon MRSA, DNA, Nasal Negative Normal NEG [facility] Comment on above: Result Comment: NEGA TIVE: MRSA DNA not detected by nucleic acid amplification. Results should be used as an adjunct to nosocomial control efforts to identify patients needing enhanced precautions. The test is not intended to identify patients with staphylococcal infections. Results should not be used to guide or monitor treatment for MRSA infections. Performed By: #### M RSANO #### [employer] [address] [place] [address] Pricing Strategist: Agustin Logan MD Specimen Description .NASAL SWAB Normal [facility] Comment on above: Performed By: #### M RSANO #### [facility] [address] [place] [address] Pricing Strategist: Agustin Logan MD Magnesiumon 02-14-2023 Magnesium [Mass/Vol] 2.0 mg/dL Normal 1.6-2.6 [facility] Comment on above: Performed By: #### B MP, MG, CDP #### [facility] [employer] [address] [place] [address] Pricing Strategist: Agustin Logan MD Magnesium [Mass/Vol] 2.0 mg/dL 1.6 - 2.6 mg/dL [facility] No Panel Informationon 02-14 No acute osseous abn ormality of the right knee and left ankle. [facility] RIS CONSOLIDATED EXAMINATION: THREE XRAY VIEWS OF THE [...] osseous lesion. No focal soft tissue abnormality. [facility] Sly Toscano MD - 02/14/2023 [...] of the right knee and left ankle. [facility] No acute bony abnorm alities are noted of the right hand and right elbow [facility] EXAMINATION: TWO XRAY VIEWS OF THE RIGHT [...] well maintained. The soft tissues are unremarkable. [facility] Sly Toscano MD - 02/14/2023 [...] of the right hand and right elbow [facility] Radiology Study observation (narrative) [facility] Interpretation and review of laboratory results Abnormal [facility] No acute fracture de formity, collapse, or subluxation at the thoracic and lumbar spine. [facility] EXAMINATION: CT OF THE THORACIC [...] chest, abdomen, pelvis see the separate CT. [facility] Gerald Martinez MD - 02/14/2023 [...] subluxation at the thoracic and lumbar spine. [facility] Radiology Study observation (narrative) [facility] Phosphoruson 02-14-2023 Phosphate [Mass/Vol] 2.6 mg/dL 2.6 - 4.5 mg/dL [facility] Phosphorus, Inorg.on 023 Phosphorus, Inorg. 2.6 mg/dL Normal 2.6-4.5 [facility] Comment on above: Performed By: #### B MP, MG, CDP #### [facility] [address] [place] [address] Pricing Strategist: Agustin Logan MD TYPE AND SCREENon 02-14-2023 ABO and Rh group Nom (Bld) Blood group O Rh(D) negative [facility] Arm Band Number [id number] [facility] Blood group antibodies identified Nom Negative [facility] Expiration Date 02/17/2023,8903 [facility] Trauma Panelon 02-14-2023 Anion gap [Moles/Vol] 14 mmol/L 9 - 17 mmol/L [facility] aPTT Coag (Bld) [Time] 26.4 s [facility] Comment on above: IV Heparin Therapy Range: 66.0-92.0 sec Blood Bank Specimen BILL FOR SERVICES PERFORMED [facility] Carboxyhemoglobin (Bld) [Mass fraction] 1.1 % 0 - 5 % [facility] Comment on above: Reference Range: Non-Smokers 0-2% Average Smoker 2-4% Heavy Smoker <10% Chloride [Moles/Vol] 106 mmol/L 98 - 107 mmol/L [facility] CO2 [Moles/Vol] 18 mmol/L Low 20 - 31 mmol/L [facility] Creatinine [Mass/Vol] 0.45 mg/dL Low 0.50 - 0.90 mg/dL [facility] Erythrocyte distribution width (RBC) [Ratio] 13.7 % 11.8 - 14.4 % [facility] Ethanol percent 0.205 % High NINF - 0.010 % [facility] Ethanolamine [Mass/Vol] 205 mg/dL High NINF - 10 mg/dL [facility] GFR/1.73 sq M.predicted MDRD (S/P/Bld) [Vol rate/Area] 60 mL/min/{1.73_m2} Low - PINF [facility] Comment on above: These results [...] [Mass/Vol] 80 mg/dL 70 - 99 mg/dL [facility] HCG ( test) Ql Negative NEGATIVE [facility] Comment on above: Specimens with hCG l evels near the threshold of the test (25 mIU/mL) may give a negative or indeterminate result. In such cases, another test should be performed with a new specimen in 48-72 hours. If early is suspected clinically in this setting, correlation with quantitative serum b-hCG level is suggested. [employer] has confirmed the use of plasma for this test. This has not been cleared or approved by the U.S. Food and Drug Administration. The FDA has determined that such clearance is not necessary. HCO3 (Bld) [Moles/Vol] 22.1 mmol/L Low 24 - 30 mmol/L [facility] Hematocrit (Bld) [Volume fraction] 34.6 % Low 36.3 - 47.1 % [facility] Hemoglobin (Bld) [Mass/Vol] 11.1 g/dL Low 11.9 - 15.1 g/dL [facility] INR Coag (PPP) [Relative time] 1.1 {INR} [facility] Comment on above: Therapeutic Range: Moderate Anticoagulant Intensity: INR = 2.0-3.0 High Anticoagulant Intensity: INR = 2.5-3.5 Interpretation and review of laboratory results Abnormal [facility] MCH (RBC) [Entitic mass] 29.6 pg 25.2 - 33.5 pg [facility] MCHC (RBC) [Mass/Vol] 32.1 g/dL 28.4 - 34.8 g/dL [facility] MCV (RBC) [Entitic vol] 92.3 fL 82.6 - 102.9 fL [facility] Negative Base Excess, Nicola 3.5 mmol/L High 0.0 - 2.0 mmol/L [facility] Nucleated RBC/100 WBC (Bld) [Ratio] 0.0 % 0.0 per 100 WBC [facility] Oxygen saturation in Blood 63.9 % 60.0 - 85.0 % [facility] Oxygen/Inspired gas Respiratory system --on ventilator Unknown [facility] pCO2, Nicola 45.0 [facility] pH, Nicola 7.313 Low 7.320 - 7.420 [facility] Platelet mean volume (Bld) [Entitic vol] 10.0 fL 8.1 - 13.5 fL [facility] Platelets (Bld) [#/Vol] 234 10*3/uL [facility] pO2, Nicola 37.9 [facility] Potassium [Moles/Vol] 2.8 mmol/L Critically low 3.7 - 5.3 mmol/L [facility] PT Coag (PPP) [Time] 13.9 s [facility] RBC (Bld) [#/Vol] 3.75 10*6/uL Low 3.95 - 5.11 m/uL [facility] Sodium [Moles/Vol] 138 mmol/L 135 - 144 mmol/L [facility] Urea nitrogen [Mass/Vol] 8 mg/dL 6 - 20 mg/dL [facility] Comment on above: QA FLAGS AND/OR RANG ES MODIFIED BY DEMOGRAPHIC UPDATE ON 02/14 AT 0254 WBC other (Bld) [#/Vol] 6.9 [facility] Trauma Profileon 02-14-2022 Potassium [Moles/Vol] 2.8 mmol/L Critically low 3.7-5.3 [facility] Comment on above: Performed By: #### B MPX #### [address] [address] Pricing Strategist: Agustin Logan MD Anion gap [Moles/Vol] 14 mmol/L Normal 9-17 [facility] Comment on above: Performed By: #### B MPX #### [facility] [employer] [address] [place] [address] Pricing Strategist: Agustin Logan MD Chloride [Moles/Vol] 106 mmol/L Normal 98-107 [facility] Comment on above: Performed By: #### B MPX #### [facility] [employer] [address] [place] [address] Pricing Strategist: Agustin Logan MD CO2 [Moles/Vol] 18 mmol/L Low 20-31 [facility] Comment on above: Performed By: #### B MPX #### [facility] [employer] [address] [place] [address]6 Pricing Strategist: Agustin Logan MD Creatinine [Mass/Vol] 0.45 mg/dL Low 0.50-0.90 [facility] Comment on above: Performed By: #### B MPX #### [facility] [employer] [address] [place] [address] [id number] Pricing Strategist: Agustin Logan MD Ethanol [Mass/Vol] 205 mg/dL High <10 [facility] Comment on above: Performed By: #### B MPX #### [address] [address] Pricing Strategist: Agustin Logan MD Ethanol percent 0.205 % High <0.010 [facility] Comment on above: Performed By: #### B MPX #### [address] [address] Pricing Strategist: Agustin Logan MD GFR/1.73 sq M.predicted among non-blacks MDRD (S/P/Bld) [Vol rate/Area] 60 mL/min/{1.73_m2} Low >60 [facility] Comment on above: Result Comment: These [...] secretion. Performed By: #### B MPX #### [address] [address] Pricing Strategist: Agustin Logan MD Glucose [Mass/Vol] 80 mg/dL Normal 70-99 [facility] Comment on above: Performed By: #### B MPX #### [facility] [employer] [address] [place] [address]26 Pricing Strategist: Agustin Logan MD Sodium [Moles/Vol] 138 mmol/L Normal 135-144 [facility] Comment on above: Performed By: #### B MPX #### [facility] [employer] [address] [place] [address]16[address] Pricing Strategist: Agustin Logan MD Urea nitrogen [Mass/Vol] 8 mg/dL Normal 6-20 [facility] Comment on above: Result Comment: QA F LAGS AND/OR RANGES MODIFIED BY DEMOGRAPHIC UPDATE ON 02/14 AT 0254 Performed By: #### B MPX #### [facility] [address] [address] Pricing Strategist: Agustin Logan MD aPTT Coag (Bld) [Time] 26.4 s Normal 23.0-36.5 [facility] Comment on above: Result Comment: IV Heparin Therapy Range: 66.0-92.0 sec Performed By: #### B MPX #### [address] [address] Pricing Strategist: Agustin Logan MD INR Coag (PPP) [Relative time] 1.1 {INR} Normal [facility] Comment on above: Result Comment: Therapeutic Range: Moderate Anticoagulant Intensity: INR = 2.0-3.0 High Anticoagulant Intensity: INR = 2.5-3.5 Performed By: #### B MPX #### [facility] [address] [place] [address] Pricing Strategist: Agustin Logan MD PT Coag (PPP) [Time] 13.9 s Normal 11.7-14.9 [facility] Comment on above: Performed By: #### B MPX #### [address] [address] Pricing Strategist: Agustin Logan MD HCG Screen, Blood Negative Normal NEG [facility] Comment on above: Result Comment: Spec imens with hCG levels near the threshold of the test (25 mIU/mL) may give a negative or indeterminate result. In such cases, another test should be performed with a new specimen in 48-72 hours. If early is suspected clinically in this setting, correlation with quantitative serum b-hCG level is suggested. [employer] has confirmed the use of plasma for this test. This has not been cleared or approved by the U.S. Food and Drug Administration. The FDA has determined that such clearance is not necessary. Performed By: #### B MPX #### [facility] [employer] [address] [place] [address] Pricing Strategist: Agustin Logan MD Body Temp. 37.0 Normal [facility] Comment on above: Performed By: #### B MPX #### [facility] [employer] [address] [place] [address] Pricing Strategist: Agustin Logan MD Carboxy Hgb 1.1 % Normal 0-5 [facility] Comment on above: Result Comment: Reference Range: Non-Smokers 0-2% Average Smoker 2-4% Heavy Smoker <10% Performed By: #### B MPX #### [address] [address] Pricing Strategist: Agustin Logan MD FIO2 Unknown Normal [facility] Comment on above: Performed By: #### B MPX #### [address] [address] Pricing Strategist: Agustin Logan MD HCO3 (Bld) [Moles/Vol] 22.1 mmol/L Low 24-30 [facility] Comment on above: Performed By: #### B MPX #### [address] [address] Pricing Strategist: Agustin Logan MD Negative Base Excess 3.5 mmol/L High 0.0-2.0 [facility] Comment on above: Performed By: #### B MPX #### [facility] [employer] [address] [place] [address] Pricing Strategist: Agustin Logan MD Oxygen saturation in Blood 63.9 % Normal 60.0-85.0 [facility] Comment on above: Performed By: #### B MPX #### [facility] [employer] [address] [place] [address] Pricing Strategist: Agustin Logan MD pCO2 45.0 mm Hg Normal 39-55 [facility] Comment on above: Performed By: #### B MPX #### [address] [address] Pricing Strategist: Agustin Logan MD pH (Bld) 7.313 [pH] Low 7.320-7.42 0 [facility] Comment on above: Performed By: #### B MPX #### [address] [address] Pricing Strategist: Agustin Logan MD pO2 37.9 mm Hg Normal 30-50 [facility] Comment on above: Performed By: #### B MPX #### [address] [address] Pricing Strategist: Agustin Logan MD Erythrocyte distribution width (RBC) [Ratio] 13.7 % Normal 11.8-14.4 [facility] Comment on above: Performed By: #### B MPX #### [address] [address] Pricing Strategist: Agustin Logan MD Hematocrit (Bld) [Volume fraction] 34.6 % Low 36.3-47.1 [facility] Comment on above: Performed By: #### B MPX #### [address] [address] Pricing Strategist: Agustin Logan MD Hemoglobin (Bld) [Mass/Vol] 11.1 g/dL Low 11.9-15.1 [facility] Comment on above: Performed By: #### B MPX #### [address] [address] Pricing Strategist: Agustin Logan MD MCH (RBC) [Entitic mass] 29.6 pg Normal 25.2-33.5 [facility] Comment on above: Performed By: #### B MPX #### [address] [place] [address] Pricing Strategist: Agustin Logan MD MCHC (RBC) [Mass/Vol] 32.1 g/dL Normal 28.4-34.8 [facility] Comment on above: Performed By: #### B MPX #### [address] [address] Pricing Strategist: Agustin Logan MD MCV (RBC) [Entitic vol] 92.3 fL Normal 82.6-102.9 [facility] Comment on above: Performed By: #### B MPX #### [address] [address] Pricing Strategist: Agustin Logan MD NRBC Automated 0.0 per 100 WBC Normal 0.0 [facility] Comment on above: Performed By: #### B MPX #### [address] [address] Pricing Strategist: Agustin Logan MD Platelet mean volume (Bld) [Entitic vol] 10.0 fL Normal 8.1-13.5 [facility] Comment on above: Performed By: #### B MPX #### [address] [address] Pricing Strategist: Agustin Logan MD Platelets (Bld) [#/Vol] 234 10*3/uL Normal 138-453 [facility] Comment on above: Performed By: #### B MPX #### [address] [address] Pricing Strategist: Agustin Logan MD RBC (Bld) [#/Vol] 3.75 10*6/uL Low 3.95-5.11 [facility] Comment on above: Performed By: #### B MPX #### [address] [address] Pricing Strategist: Agustin Logan MD WBC (Bld) [#/Vol] 6.9 10*3/uL Normal 3.5-11.3 [facility] Comment on above: Performed By: #### B MPX #### [employer] [address] [place] [address] Pricing Strategist: Agustin Logan MD Blood Bank BILL FOR SERVICES PERFORMED Normal [facility] Comment on above: Performed By: #### B MPX #### [employer] [address] [place] [address] Pricing Strategist: Agustin Logan MD Type + Screenon 02-14-2023 Type + Screen Sample Expiration 02/17/2023,2359 Arm Band Number [id number] ABO/Rh(D) O NEGATIVE Antibody Screen NEGATIVE Normal [facility] Comment on above: Performed By: #### B MP, MG, CDP #### [facility] [address] [place] [address] Pricing Strategist: Agustin Logan MD Urinalysison 02-14-2023 Bilirubin Ql (U) Negative NEGATIVE [facility] Clarity (U) Clear Clear [facility] [email or web address] [facility] Color (U) Yellow Yellow [facility] Glucose Test strip (U) [Mass/Vol] Negative NEGATIVE [facility] Hemoglobin Auto test strip Ql (U) Negative NEGATIVE [facility] Interpretation and review of laboratory results Abnormal [facility] Ketones (U) [Mass/Vol] Negative NEGATIVE [facility] Leukocyte esterase Test strip Ql (U) Negative NEGATIVE [facility] Nitrite Ql (U) Negative NEGATIVE [facility] pH (U) 6.5 [pH] 5.0 - 8.0 [facility] Protein (U) [Mass/Vol] Negative NEGATIVE [facility] Specific gravity (U) [Rel density] 1.046 High 1.005 - 1.030 [facility] Urinalysis Comments Microscopic exam not performed based on chemical results unless requested in original order. [facility] Urobilinogen Qn (U) Normal Normal [facility] Urinalysis, Routineon 2022 Bilirubin, SemiQt,Ur Negative Normal NEG [facility] Comment on above: Performed By: #### U A #### [address] [address] Pricing Strategist: Agustin Logan MD Blood, Urine Negative Normal NEG [facility] Comment on above: Performed By: #### U A #### [address] [address] Pricing Strategist: Agustin Logan MD Clarity (U) Clear Normal CLEAR [facility] Comment on above: Performed By: #### U A #### [address] [address] Pricing Strategist: Agustin Logan MD Color (U) Yellow Normal YEL [facility] Comment on above: Performed By: #### U A #### [address] [address] Pricing Strategist: Agustin Logan MD Comment Microscopic exam not performed based on chemical results unless requested in Normal [facility] Comment on above: Result Comment: orig inal order. Performed By: #### U A #### [address] [address] Pricing Strategist: Agustin Logan MD Glucose Ql (U) Negative Normal NEG [facility] Comment on above: Performed By: #### U A #### [address] [address] Pricing Strategist: Agustin Logan MD Ketones Ql (U) Negative Normal NEG [facility] Comment on above: Performed By: #### U A #### [address] [address] Pricing Strategist: Agustin Logan MD Leukocyte esterase Test strip Ql (U) Negative Normal NEG [facility] Comment on above: Performed By: #### U A #### [address] [address] Pricing Strategist: Agustin Logan MD Nitrite,Ur Negative Normal NEG [facility] Comment on above: Performed By: #### U A #### [address] [address] Pricing Strategist: Agustin Logan MD PH,Ur 6.5 Normal 5.0-8.0 [facility] Comment on above: Performed By: #### U A #### [address] [address] Pricing Strategist: Agustin Logan MD Protein Ql (U) Negative Normal NEG [facility] Comment on above: Performed By: #### U A #### [address] [address] Pricing Strategist: Agustin Logan MD Spec. [place],Ur 1.046 High 1.005-1.03 0 [facility] Comment on above: Performed By: #### U A #### [address] [address] Pricing Strategist: Agustin Logan MD Urobilinogen,Ur Normal Normal NORM [facility] Comment on above: Performed By: #### U A #### [address] [address] Pricing Strategist: Agustin Logan MD XR ANKLE LEFT (MIN [...] Sly Toscano MD 02/14/23 Final result Normal [facility] XR CERVICAL SPINE FLEXION AN D [...] Sly Toscano MD 02/14/23 Final result Normal [facility] Limited range of mot ion suggesting paracervical spasm. No acute osseous abnormalities [facility] RIS CONSOLIDATED EXAMINATION: XRAY VIEWS OF THE CERVICAL [...] of prevertebral soft tissue edema or fracture. [facility] Sly Toscano MD - 02/14/2023 EXAMINATION: [...] suggesting paracervical spasm. No acute osseous abnormalities [facility] Radiology Study observation (narrative) [facility] XR CERVICAL SPINE FLEXION AN D EXTENSIONOrdered By: Sly Toscano on 02-14-2023 [facility] Work Phone: XR ELBOW RIGHT (2 VIEWS)on [...] Sly Toscano MD 02/14/23 Final result Normal [facility] XR HAND RIGHT (MIN 3 VIEWS)o [...] Sly Toscano MD 02/14/23 Final result Normal [facility] XR KNEE RIGHT (1-2 VIEWS)on 02-14-2023 [...] by: Sly Toscano MD Signed by: Sly Toscnao MD 02/14/23 Final result Normal [facility] COVID + FLU Quick Testingon 12-20-2022 SARS-CoV-2 (COVID-19) RNA MAXIM+probe Ql (Unsp spec) Negative [facility] Other COVID + FLU Quick Testing Positive [facility] Other COVID + FLU Quick Testing Negative [facility] Other Covid-19 PCR ([facility])on SARS-CoV-2 (COVID-19) RNA MAXIM+probe Ql (Unsp spec) Not detected Normal NOT DETECTED [facility] Comment on above: Result Comment: When diagnostic [...] for this test is supported by the [place] of Health and Human Service's declaration that [...] longer be used). Performed By: #### [facility] #### [facility] [address] [place] [address] Dr. Viv Dumont PREG HCG QUALon 09-26-2021 , QUAL Negative Normal NEGATIVE [facility] Comment on above: Performed By: #### P REG #### [facility] [address] [place] [address] Dr. Viv Dumont [facility]19 [facility]on SARS-CoV-2 (COVID-19) RNA MAXIM+probe Ql (Unsp spec) Not detected Normal NOT DETECTED [facility] Comment on above: Result Comment: This test is not yet approved or cleared by the [place] FDA. When there are no FDA-approved or cleared tests available, and other criteria are met, FDA can make tests available under an emergency access mechanism called an Emergency Use Authorization (EUA). The EUA for this test is supported by the [employer] of Health and Human Service's (HHS's) declaration [...] Performed By: #### E JONATAN BRYAN #### [facility] [address] [place] [address] Cesilia Hernandez CBC AUTO DIFFon 09-18-2021 BASO # 0.0 103/ul Normal 0.0-0.1 [facility] Comment on above: Performed By: #### C BC #### [facility] [address] [place] [address] Viv Dumont Basophils/100 WBC (Bld) 0.2 % Normal 0.2-2.0 [facility] Comment on above: Performed By: #### C BC #### [facility] [address] [place] [address] Dr. Viv Dumont EO # 0.1 103/ul Normal 0.0-0.7 [facility] Comment on above: Performed By: #### C BC #### [facility] [address] [place] [address] Dr. Viv Dumont Eosinophils/100 WBC (Bld) 2.2 % Normal 0.9-7.0 [facility] Comment on above: Performed By: #### C BC #### [facility] [address] [place] [address] Dr. Viv Dumont Erythrocyte distribution width (RBC) [Ratio] 13.9 % Normal 11.0-15.0 [facility] Comment on above: Performed By: #### C BC #### [facility] [address] [place] [address] Dr. Viv Dumont Hematocrit (Bld) [Volume fraction] 36.1 % Normal 36.0-48.0 [facility] Comment on above: Performed By: #### C BC #### [facility] [address] [place] [address] Dr. Viv Dumont Hemoglobin (Bld) [Mass/Vol] 11.8 g/dL Critically low 12.0-16.0 [facility] Comment on above: Performed By: #### C BC #### [facility] [address] [place] [address] Dr. Viv Dumont IG # 0.01 10e3/ul Normal 0.00-0.03 [facility] Comment on above: Performed By: #### C BC #### [facility] [address] [place] [address] Dr. Viv Dumont IG % 0.2 % Normal 0.0-0.5 [facility] Comment on above: Performed By: #### C BC #### [facility] [address] [place] [address] Dr. Viv Dumont LYMPH # 2.0 103/ul Normal 1.2-3.8 [facility] Comment on above: Performed By: #### C BC #### [facility] [address] [place] [address] Dr. Viv Dumont Lymphocytes/100 WBC (Bld) 30.9 % Normal 20.5-60.0 [facility] Comment on above: Performed By: #### C BC #### [facility] [address] [place] [address] Dr. Viv Dumont MANUAL DIFF REQ NO Normal [facility] Comment on above: Performed By: #### C BC #### [facility] [address] [place] [address] Dr. Viv Dumont MCH (RBC) [Entitic mass] 28.9 pg Normal 26.7-34.0 [facility] Comment on above: Performed By: #### C BC #### [facility] [address] [place] [address] Dr. Viv Dumont MCHC (RBC) [Mass/Vol] 32.7 g/dL Normal 29.9-35.2 [facility] Comment on above: Performed By: #### C BC #### [facility] [address] [place] [address] Dr. Viv Dumont MCV (RBC) [Entitic vol] 88.3 fL Normal 81.0-99.0 [facility] Comment on above: Performed By: #### C BC #### [facility] [address] [place] [address] Dr. Viv Dumont MONO # 0.4 103/ul Normal 0.3-0.8 [facility] Comment on above: Performed By: #### C BC #### [facility] [address] [place] [address] Dr. Viv Dmuont Monocytes/100 WBC (Bld) 6.1 % Normal 1.7-12.0 [facility] Comment on above: Performed By: #### C BC #### [facility] [address] [place] [address] Dr. Viv Dumont NEUT # 3.9 103/ul Normal 1.4-6.5 [facility] Comment on above: Performed By: #### C BC #### [facility] [address] [place] [address] Dr. Viv Dumont Neutrophils/100 WBC (Bld) 60.4 % Normal 43.0-75.0 [facility] Comment on above: Performed By: #### C BC #### [facility] [address] [place] [address] Dr. Viv Dumont Platelet mean volume (Bld) [Entitic vol] 9.7 fL Normal 9.5-13.5 [facility] Comment on above: Performed By: #### C BC #### [facility] [address] [place] [address] Dr. Viv Dumont PLT 287 103/ul Normal 150-450 [facility] Comment on above: Performed By: #### C BC #### [facility] [address] [address] [address] Viv Dumont RBC 4.09 106/ul Critically low 4.20-5.40 [facility] Comment on above: Performed By: #### C BC #### [facility] [address] [place] [address] Dr. Viv Dumont WBC 6.4 103/ul Normal 4.0-11.0 [facility] Comment on above: Performed By: #### C BC #### [facility] [address] [place] [address] Dr. Viv Dumont PAP ACOG PANEL 2: 30 to 65on 08-25-2021 . . Normal [facility] Comment on above: Result Comment: Perf ormed at: WB Performed By: #### [id number] #### [facility] [address] [place] [address] Dr. Viv Dumont Age Gdln ACOG Testing 30-65 Normal [facility] Comment on above: Performed By: #### [id number] #### [facility] [address] [place] [address] Dr. Viv Dumont DIAGNOSIS: Comment Normal [facility] Comment on above: Result Comment: NEGA TIVE FOR INTRAEPITHELIAL LESION OR MALIGNANCY. Performed at: WB Performed By: #### [id number] #### [facility] [address] [place] [address] Dr. Viv Dumont HPV Aptima Negative Normal Negative [facility] Comment on above: Result Comment: This nucleic acid amplification test detects fourteen high-risk HPV types (16,18,31,33,35,39,45,51,52,56,58,59,66,68) without differentiation. Performed at: =G Performed By: #### [id number] #### [facility] [address] [place] [address] Dr. Viv Dumont Methodology: Comment Normal [facility] Comment on above: Result Comment: This liquid based ThinPrep(R) pap test was screened with the use of an image guided system. Performed at: WB Performed By: #### [id number] #### [facility] [address] [place] [address] Dr. Viv Dumont Note: Comment Normal [facility] Comment on above: Result Comment: The Pap smear is a screening test designed to aid in the detection of premalignant and malignant conditions of the uterine cervix. It is not a diagnostic procedure and should not be used as the sole means of detecting cervical cancer. Both false-positive and false-negative reports do occur. . Performed at: WB Performed By: #### [id number] #### [facility] [address] [place] [address] Dr. Viv Dumont Performed by: Comment Normal [facility] Comment on above: Result Comment: Siddhartha Renee, Admin Asst (ASCP) Performed at: WB Performed By: #### [id number] #### [facility] [address] [place] [address] Dr. Viv Dumont Specimen adequacy: Comment Normal [facility] Comment on above: Result Comment: Sati sfactory for evaluation. Endocervical and/or squamous metaplastic cells (endocervical component) are present. Performed at: WB Performed By: #### [id number] #### [facility] [address] [place] [address] Dr. Viv Dumont PREG QUANT HCGon 07-21-2021 HCG QUANT <1 [facility] Comment on above: Performed By: #### P REGQNT #### [facility] [address] [place] [address] Dr. Viv Dumont HCG RANGE SEE BELOW [facility] Comment on above: Result Comment: 5-50 0-1 WEEK 40-300 1-2 WEEKS 100-1,000 2-3 WEEKS 500-6,000 3-4 WEEKS 5,000-200,000 1-2 MONTHS 10,000-100,000 2-3 MONTHS 3,000-50,000 2ND TRIMESTER 1,000-50,000 3RD TRIMESTER Performed By: #### P REGQNT #### [facility] [address] [place] [address] Dr. Viv Dumont US PELVIS AND TRANSVAGon [...] CRISS MORALES Date: 2021-04-25 10:42 Normal [facility] RHOGAMon 04-23-2021 RHOGAM Status Information I ssued Quantity 1 Product ID Rh Immune Globulin Lot Number [id number] Issue Date/Time [id number] Normal [facility] Comment on above: Performed By: #### JONATAN CORONADO #### [facility] [address] [place] [address] Cesilia Hernandez ABO AND RH TYPEon 04-21-2021 ABO and Rh group Nom (Bld) ABO Rh Typing O Rh Negative Normal [facility] Comment on above: Performed By: #### JONATAN CORONADO #### [facility] [address] [place] [address] Cesilia Mary PREG QUANT HCGon 04-14-2021 HCG QUANT 431 mIU/mL Normal [facility] Comment on above: Performed By: #### P REGQNT #### [facility] [address] [place] [address] Cesilia Mary HCG RANGE SEE BELOW Normal [facility] Comment on above: Result Comment: 5-50 0-1 WEEK 40-300 1-2 WEEKS 100-1,000 2-3 WEEKS 500-6,000 3-4 WEEKS 5,000-200,000 1-2 MONTHS 10,000-100,000 2-3 MONTHS 3,000-50,000 2ND TRIMESTER 1,000-50,000 3RD TRIMESTER Performed By: #### P REGQNT #### [facility] [address] [place] [address] Cesilia Mary PREG QUANT HCGon 04-10-2021 HCG QUANT 1426 mIU/mL Normal [facility] Comment on above: Performed By: #### P REGQNT #### [facility] [address] [place] [address] Cesilia Mary HCG RANGE SEE BELOW Normal [facility] Comment on above: Result Comment: 5-50 0-1 WEEK 40-300 1-2 WEEKS 100-1,000 2-3 WEEKS 500-6,000 3-4 WEEKS 5,000-200,000 1-2 MONTHS 10,000-100,000 2-3 MONTHS 3,000-50,000 2ND TRIMESTER 1,000-50,000 3RD TRIMESTER Performed By: #### P REGQNT #### [facility] [address] [place] [address] Cesilia Mary CBC AUTO DIFFon 03-19-2021 BASO # 0.0 103/ul Normal 0.0-0.1 [facility] Comment on above: Performed By: #### C BC #### [facility] [address] [place], [place] [id number] Cesilia Mary Basophils/100 WBC (Bld) 0.3 % Normal 0.2-2.0 [facility] Comment on above: Performed By: #### C BC #### [facility] [address] [place] [address] Cesilia Mary EO # 0.1 103/ul Normal 0.0-0.7 [facility] Comment on above: Performed By: #### C BC #### [facility] [address] [place] [address] Cesilia Mary Eosinophils/100 WBC (Bld) 1.9 % Normal 0.9-7.0 [facility] Comment on above: Performed By: #### C BC #### [facility] [address] [place] [address] Cesilia Mary Erythrocyte distribution width (RBC) [Ratio] 14.3 % Normal 11.0-15.0 [facility] Comment on above: Performed By: #### C BC #### [facility] [address] [place] [address] Cesilia Mary Hematocrit (Bld) [Volume fraction] 38.5 % Normal 36.0-48.0 [facility] Comment on above: Performed By: #### C BC #### [facility] [address] [place] [address] Cesilia Mary Hemoglobin (Bld) [Mass/Vol] 12.4 g/dL Normal 12.0-16.0 [facility] Comment on above: Performed By: #### C BC #### [facility] [address] [place] [address] Cesilia Mary IG # 0.00 10e3/ul Normal 0.00-0.03 [facility] Comment on above: Performed By: #### C BC #### [facility] [address] [place] [address] Cesilia Mary IG % 0.3 % Normal 0.0-0.5 [facility] Comment on above: Performed By: #### C BC #### [facility] [address] [place] [address] Cesilia Mary LYMPH # 2.0 103/ul Normal 1.2-3.8 [facility] Comment on above: Performed By: #### C BC #### [facility] [address] [place] [address] Cesilia Mary Lymphocytes/100 WBC (Bld) 25.9 % Normal 20.5-60.0 [facility] Comment on above: Performed By: #### C BC #### [facility] [address] [place], [place] [id number] Cesilia Hernandez MANUAL DIFF REQ NO Normal [facility] Comment on above: Performed By: #### C BC #### [facility] [address] [place] [address] Cesiliakathie Hernandez MCH (RBC) [Entitic mass] 28.4 pg Normal 26.7-34.0 [facility] Comment on above: Performed By: #### C BC #### [facility] [address] [place] [address] Cesilia Hernandez MCHC (RBC) [Mass/Vol] 32.2 g/dL Normal 29.9-35.2 [facility] Comment on above: Performed By: #### C BC #### [facility] [address] [place] [address] Cesiliakathie Hernandez MCV (RBC) [Entitic vol] 88.3 fL Normal 81.0-99.0 [facility] Comment on above: Performed By: #### C BC #### [facility] [address] [place] [address] Cesilia Hernandez MONO # 0.4 103/ul Normal 0.3-0.8 [facility] Comment on above: Performed By: #### C BC #### [facility] [address] [place] [address] Cesilia Hernandez Monocytes/100 WBC (Bld) 5.9 % Normal 1.7-12.0 [facility] Comment on above: Performed By: #### C BC #### [facility] [address] [place] [address] Cesilia Mary NEUT # 5.2 103/ul Normal 1.4-6.5 [facility] Comment on above: Performed By: #### C BC #### [facility] [address] [place] [address] Cesilia Mary Neutrophils/100 WBC (Bld) 65.7 % Normal 43.0-75.0 [facility] Comment on above: Performed By: #### C BC #### [facility] [address] [place] [address] Cesilia Hernandez Platelet mean volume (Bld) [Entitic vol] 9.9 fL Normal 9.5-13.5 [facility] Comment on above: Performed By: #### C BC #### [facility] [address] [place] [address] Cesiliakathie Dimasen PLT 282 103/ul Normal 150-450 [facility] Comment on above: Performed By: #### C BC #### [facility] [address] [place] [address] Cesilia Mary RBC 4.36 106/ul Normal 4.20-5.40 [facility] Comment on above: Performed By: #### C BC #### [facility] [address] [place] [address] Cesiliakathie Dimasen WBC 7.9 103/ul Normal 4.0-11.0 [facility] Comment on above: Performed By: #### C BC #### [facility] [address] [place], [place] [id number] Cesiliakathie Dimasen ER URINE PROFILEon 1 Bilirubin Ql (U) Negative Normal NEGATIVE [facility] Comment on above: Performed By: #### JONATAN CORONADO #### [facility] [address] [place] [address] Cesilia Mary Clarity (U) CLEAR Normal CLEAR [facility] Comment on above: Performed By: #### JONATAN CORONADO #### [facility] [address] [place] [address] Cesilia Mary Color (U) YELLOW Normal YELLOW [facility] Comment on above: Performed By: #### JONATAN CORONADO #### [facility] [address] [place], [place] [id number] Cesilia Mary ERUAHD A micrscopic examina tion will be performed if indicated. Normal [facility] Comment on above: Performed By: #### JONATAN CORONADO #### [facility] [address] [place] [address] Cesilia Mary Glucose Ql (U) Negative Normal NEGATIVE [facility] Comment on above: Performed By: #### JONATAN CORONADO #### [facility] [address] [place] [address] Cesilia Mary Hemoglobin Ql (U) TRACE-INTACT Abnormal NEGATIVE [facility] Comment on above: Performed By: #### JONATAN CORONADO #### [facility] [address] [place] [address] Cesilia Mary Ketones Ql (U) Negative Normal NEGATIVE [facility] Comment on above: Performed By: #### JONATAN CORONADO #### [facility] [address] [place] [address] Cesilia Mary LEUKOCYTES Negative Normal NEGATIVE [facility] Comment on above: Performed By: #### JONATAN CORONADO #### [facility] [address] [place] [address] Cesilia Mary Nitrite Ql (U) Negative Normal NEGATIVE [facility] Comment on above: Performed By: #### JONATAN CORONADO #### [facility] [address] [place] [address] Cesilia Mary pH (U) 6.0 [pH] Normal 5-9 [facility] Comment on above: Performed By: #### JONATAN CORONADO #### [facility] [address] [place] [address] Cesilia Mary SPEC GRAVITY 1.020 Normal 1.005-<=1. 025 [facility] Comment on above: Performed By: #### JONATAN CORONADO #### [facility] [address] [place] [address] Cesilia Mary UA PROTEIN Negative Normal NEGATIVE/ TRACE [facility] Comment on above: Performed By: #### JONATAN CORONADO #### [facility] [address] [place] [address] Cesilia Mray UR MICRO IND INDICATED Normal [facility] Comment on above: Performed By: #### JONATAN CORONADO #### [facility] [address] [place], [place] [id number] Cesilia Mary Urobilinogen Qn (U) 0.2 {Yefri'U}/dL Normal 0.2 - 1. 0 [facility] Comment on above: Performed By: #### JONATAN CORONADO #### [facility] [address] [place], [place] [id number] Cesilia Mary PROF 14(COMP METB)on 021 Albumin [Mass/Vol] 3.8 g/dL Normal 3.5-5.0 [facility] Comment on above: Performed By: #### JONATAN CORONADO #### [facility] [address] [place], [place] [id number] Cesilia Mary Albumin/Globulin [Mass ratio] 0.9 {ratio} Normal [facility] Comment on above: Performed By: #### JONATAN CORONADO #### [facility] [address] [place], [place] [id number] Cesilia Mary ALP [Catalytic activity/Vol] 60 U/L Normal 38-126 [facility] Comment on above: Performed By: #### JONATAN CORONADO #### [facility] [address] [place], [place] [id number] Cesilia Mary ALT [Catalytic activity/Vol] 21 U/L Normal 9-52 [facility] Comment on above: Performed By: #### JONATAN CORONADO #### [facility] [address] [place], [place] [id number] Cesilia Mary Anion gap [Moles/Vol] 11.8 mmol/L Normal [facility] Comment on above: Performed By: #### JONATAN CORONADO #### [facility] [address] [place], [place] [id number] Cesilia Mary AST [Catalytic activity/Vol] 14 U/L Normal 14-36 [facility] Comment on above: Performed By: #### JONATAN CORONADO #### [facility] [address] [place], [place] [id number] Cesilia Mary Bilirubin [Mass/Vol] 0.2 mg/dL Normal 0.2-1.3 [facility] Comment on above: Performed By: #### JONATAN CORONADO #### [facility] [address] [place] [address] Cesilia Mary Calcium [Mass/Vol] 9.2 mg/dL Normal 8.4-10.2 [facility] Comment on above: Performed By: #### JONATAN CORONADO #### [facility] [address] [place] [address] Cesilia Mary Chloride [Moles/Vol] 103 mmol/L Normal 98-107 [facility] Comment on above: Performed By: #### JONATAN CORONADO #### [facility] [address] [place] [address] Cesilia Mary CO2 [Moles/Vol] 28.0 mmol/L Normal 22.0-30.0 [facility] Comment on above: Performed By: #### JONATAN CORONADO #### [facility] [address] [place] [address] Cesilia Mary Creatinine [Mass/Vol] 0.79 mg/dL Normal 0.52-1.04 [facility] Comment on above: Performed By: #### JONATAN CORONADO #### [facility] [address] [place] [address] Cesilia Mary EGFR-AF [place] >60 Normal >=60 [facility] Comment on above: Performed By: #### JONATAN CORONADO #### [facility] [address] [place] [address] Cesilia Mary EGFR-NON AF [place] >60 Normal >=60 [facility] Comment on above: Performed By: #### JONATAN CORONADO #### [facility] [address] [place] [address] Cesilia Mary Globulin (S) [Mass/Vol] 4.1 g/dL Normal [facility] Comment on above: Performed By: #### JONATAN CORONADO #### [facility] [address] [place], [place] [address] Cesilia Mary Glucose [Mass/Vol] 79 mg/dL Normal 74-106 [facility] Comment on above: Performed By: #### JONATAN CORONADO #### [facility] [address] [place] [address] Cesilia Mary Potassium [Moles/Vol] 3.8 mmol/L Normal 3.4-5.0 [facility] Comment on above: Performed By: #### JONATAN CORONADO #### [facility] [address] [place] [address] Cesilia Mary Protein [Mass/Vol] 7.9 g/dL Normal 6.1-8.2 [facility] Comment on above: Performed By: #### JONATAN CORONADO #### [facility] [address] [place] [address] Cesilia Mary Sodium [Moles/Vol] 139 mmol/L Normal 137-145 [facility] Comment on above: Performed By: #### JONATAN CORONADO #### [facility] [address] [place] [address] Cesilia Mary Urea nitrogen [Mass/Vol] 12.0 mg/dL Normal 7.0-17.0 [facility] Comment on above: Performed By: #### JONATAN CORONADO #### [facility] [address] [place] [address] Cesilia Mary Urea nitrogen/Creatinine [Mass ratio] 15.2 mg/mg Normal [facility] Comment on above: Performed By: #### JONATAN CORONADO #### [facility] [address] [place] [address] Cesilia Mary URINE MICROSCOPIC ONLYon BACTERIA NONE SEEN Normal NONE SEEN [facility] Comment on above: Performed By: #### JONATAN CORONADO #### [facility] [address] [place], [place] [id number] Cesilia Mary Bacteria identified Cx Nom (U) NOT INDICATED Normal [facility] Comment on above: Performed By: #### JONATAN CORONADO #### [facility] [address] [place] [address] Cesilia Mary CAST NONE SEEN Normal NONE SEEN [facility] Comment on above: Performed By: #### E IRVIN UMALISSONRO #### [facility] [address] [place] [address] Cesilia Mary Crystals LM Nom (Urine sed) NONE SEEN Normal NONE SEEN [facility] Comment on above: Performed By: #### E MIGUELR, UMICRO #### [facility] [address] [place] [address] Cesilia Mary Epithelial cells LM Ql (Urine sed) FEW Abnormal NONE SEEN /RARE [facility] Comment on above: Performed By: #### E IRVIN UMICRO #### [facility] [address] [place] [address] Cesilia Mary MUCOUS NONE SEEN Normal NONE SEEN [facility] Comment on above: Performed By: #### Zion BRYAN UMICRO #### [facility] [address] [place] [address] Cesilia Mary RBC 0-2 Normal 0-2 [facility] Comment on above: Performed By: #### E MIGUELR UMICRO #### [facility] [address] [place] [address] Cesilia Mary WBC NONE SEEN Normal NONE SEEN [facility] Comment on above: Performed By: #### E IRVIN, UMICRO #### [facility] [address] [place], [place] [id number] Cesilia Mary US PREG TVon 03-19-2021 US [...] by: CHRISTINA BURRIS Date: 2021-03-19 04:29 Normal [facility] CNOVon 10-29-2017 CNOV Office Visit (CARDFT) ----FELISA JONES ([id number]) 1985 FDate Time Provider Department10/29/17 2:30 PM EITAN LEWIS During your visit today, we recorded the following information about you: Pulse Respiration Blood pressure Weight 83/minute 18/minute 126/71 68.9 kg Height 1.702 Riley Lewis MD 10/29/2017 3:30 PM [facility] and [facility] Department of Cardiovascular MedicineOUTPATIENT VISIT DATE 10/29/17OUTPATIENT VISIT TYPENEWPRIMARY CARE PHYSICIAN:Valdemar Mcclendon, DO[address] [facility] [address]Wezpj: [phone]: [phone] COMPLAINT:Patient presents with:Chest PainPalpitationsHISTORY OF PRESENT ILLNESS:Felisa [...] her family stressors with her fatherbeing in chcf. The patient works at the local [employer]. She is looking forward to learning how [...] kg (152 lb) SpO2 100% BMI 23.81 kg/j6Ytyzgce: Well appearing, in no acute distress.Eyes: Conjunctiva [...] 10/15/2017 reveals a white count of 6.5, cgoagvxtjx87.6, hematocrit 36.7, platelets 253, sodium 136, potassium [...] via U.S. Mail.This document was generated utilizing Spark CRM dictation. I have reviewed andverified that the contents of the document are accurate with the exception ofminor grammatical, spelling and punctuation errors.CONTACT INFORMATION:Thank you for allowing us to participate in the care of this very pleasantpatient. Please free to contact us if we can be of any further assistance.Eitan Lewis MD, FACCRobert and Callie Markpartment of Cardiovascular MedicineSelect Medical Specialty Hospital [facility] Ohiort and Vascular InstituteRichard Ville [address] [place], [place] [address]Frgnfd: [phone] Referring Provider: VALDEMAR MCCLENDON [[id number]]Allergies As of Date: 10/29/2017(No Known Allergies)Date Reviewed: 10/29/2017Reviewed by: Eitan Lewis - Fully AssessedReason for Visit: Chest Pain [21] Palpitations [79]Primary Visit Diagnosis:Vasovagal syncope [R55] Other Visit Diagnoses:PVC (premature ventricular contraction) [I49.3] Ventricular trigeminy [I49.8]Order(s):EXERCISE STRESS WO IMAGING [[id number]] Order #: [id number]: 1 FUTUREPrescriptions as of 10/29/2017 Sig: BUPROPION [...] Status:Closed by ELADIO LEWIS MD on 10/29/17 Normal [place] PROGRESSon 10-29-2017 PROGRESS HNO ID: [id number] thor: Eitan Vanegaservice: (none)Author Type: PhysicianType: Progress NotesFiled: 10/29/2017 3:30 PMNote Text:Heart and Vascular [facility] and [facility] Department of Cardiovascular MedicineOUTPATIENT VISIT DATE 10/29/17OUTPATIENT VISIT TYPENEWPRIMARY CARE PHYSICIAN:Valdemar Mcclendon, DO[address] [facility] [place], [place] [address]Tfvoo: [phone]: [phone] COMPLAINT:Patient presents with:Chest PainPalpitationsHISTORY OF PRESENT ILLNESS:Felisa [...] her family stressors with her father beingin chcf. The patient works at the local [employer]. She is looking forward to learning how [...] kg (152 lb) SpO2 100% BMI 23.81 kg/c8Tiabgdn: Well appearing, in no acute distress.Eyes: Conjunctiva [...] physicianvia U.S. Mail.This document was generated utilizing PagaTuAlquileration. I have reviewedand verified that the contents of the document are accurate with theexception of minor grammatical, spelling and punctuation errors.CONTACT INFORMATION:Thank you for allowing us to participate in the care of this very pleasantpatient. Please free to contact us if we can be of any furtherassistance.Eitan Lewis MD, [facility] and Callie ParadaArkansas State [facility] of Cardiovascular MedicineMountain Vista Medical Center and Vascular InstituteMark Ville [address] [address], [place] [address]Jigxlz: [phone] Normal [place] Vital Signs Date Time Vital Sign Value Performing Clinician Facility 11-09-2024 12:13-0400 Body height 170.18 cm [facility] [employer] 11-09-2024 12:13-0400 Body mass index (BMI) [Ratio] 25.45 kg/m2 [facility] [employer] 11-09-2024 12:13-0400 Body surface area Derived from formula 1.87 m2 [facility] [employer] 11-09-2024 12:13-0400 Body weight 73.71 kg [facility] [employer] 11-09-2024 12:13-0400 Diastolic blood pressure 74 mm[Hg] [facility] [employer] 11-09-2024 12:13-0400 Heart rate 76 /min [facility] [employer] 11-09-2024 12:13-0400 Systolic blood pressure 122 mm[Hg] [facility] [employer] 08-01-2024 08:48-0500 Blood Pressure Location Valdemar MCCLENDON [facility] 08-01-2024 08:48-0500 Body temperature 97.7 [degF] Valdemar MCCLENDON [facility] 08-01-2024 08:48-0500 Diastolic blood pressure 68 mm[Hg] Valdemar MCCLENDON [facility] 08-01-2024 08:48-0500 Heart rate 73 /min Valdemar MCCLENDON [facility] 08-01-2024 08:48-0500 Respiratory rate 16 /min Valdemar KAPLE [facility] 08-01-2024 08:48-0500 SaO2% (BldA) [Mass fraction] 99 % Valdemar KAPLE [facility] 08-01-2024 08:48-0500 Systolic blood pressure 110 mm[Hg] Valdemar KAPLE [facility] 05-02-2024 10:31-0400 Blood Pressure Location Valdemar KAPLE [facility] 05-02-2024 10:31-0400 Body temperature 97.88 [degF] Valdemar KAPLE [facility] 05-02-2024 10:31-0400 Diastolic blood pressure 68 mm[Hg] Valdemar KAPLE [facility] 05-02-2024 10:31-0400 Heart rate 71 /min Valdemar KAPLE [facility] 05-02-2024 10:31-0400 Respiratory rate 16 /min Valdemar KAPLE [facility] 05-02-2024 10:31-0400 SaO2% (BldA) [Mass fraction] 98 % Valdemar KAPLE [facility] 05-02-2024 10:31-0400 Systolic blood pressure 112 mm[Hg] Valdemar KAPLE [facility] 01-21-2024 08:53-0400 Blood Pressure Location Valdemar KAPLE [facility] 01-21-2024 08:53-0400 Body temperature 97.88 [degF] Valdemar KAPLE [facility] 01-21-2024 08:53-0400 Diastolic blood pressure 80 mm[Hg] Valdemar KAPLE [facility] 01-21-2024 08:53-0400 Heart rate 82 /min Valdemar KAPLE [facility] 01-21-2024 08:53-0400 SaO2% (BldA) [Mass fraction] 98 % Valdemar KAPLE [facility] 01-21-2024 08:53-0400 Systolic blood pressure 114 mm[Hg] Valdemar KAPLE [facility] 11-26-2023 08:08-0400 Blood Pressure Location Valdemar KAPLE [facility] 11-26-2023 08:08-0400 Body temperature 98.06 [degF] Valdemar KAPLE [facility] 11-26-2023 08:08-0400 Diastolic blood pressure 68 mm[Hg] Valdemar KAPLE [facility] 11-26-2023 08:08-0400 Heart rate 72 /min Valdemar KAPLE [facility] 11-26-2023 08:08-0400 Respiratory rate 16 /min Valdemar KAPLE [facility] 11-26-2023 08:08-0400 SaO2% (BldA) [Mass fraction] 99 % Valdemar KAPLE [facility] 11-26-2023 08:08-0400 Systolic blood pressure 112 mm[Hg] Valdemar KAPLE [facility] 10-14-2023 08:55-0500 Blood Pressure Location Valdemar KAPLE [facility] 10-14-2023 08:55-0500 Body temperature 98.06 [degF] Valdemar KAPLE [facility] 10-14-2023 08:55-0500 Diastolic blood pressure 70 mm[Hg] Valdemar KAPLE [facility] 10-14-2023 08:55-0500 Heart rate 85 /min Valdemar KAPLE [facility] 10-14-2023 08:55-0500 Respiratory rate 18 /min Valdemar KAPLE [facility] 10-14-2023 08:55-0500 SaO2% (BldA) [Mass fraction] 97 % Valdemar KAPLE [facility] 10-14-2023 08:55-0500 Systolic blood pressure 112 mm[Hg] Valdemar KAPLE [facility] 07-09-2023 13:20-0500 Blood Pressure Location Valdemar KAPLE [facility] 07-09-2023 13:20-0500 Body temperature 98.6 [degF] Valdemar KAPLE [facility] 07-09-2023 13:20-0500 Diastolic blood pressure 70 mm[Hg] Valdemar KAPLE [facility] 07-09-2023 13:20-0500 Heart rate 68 /min Valdemar KAPLE [facility] 07-09-2023 13:20-0500 Respiratory rate 18 /min Valdemar KAPLE [facility] 07-09-2023 13:20-0500 SaO2% (BldA) [Mass fraction] 99 % Valdemar KAPLE [facility] 07-09-2023 13:20-0500 Systolic blood pressure 118 mm[Hg] Valdemar KAPLE [facility] 04-15-2023 12:15-0400 Body temperature 98.6 [degF] [facility] 04-15-2023 12:15-0400 Diastolic blood pressure 76 mm[Hg] [facility] 04-15-2023 12:15-0400 Heart rate 78 /min [facility] 04-15-2023 12:15-0400 Respiratory rate 18 /min [facility] 04-15-2023 12:15-0400 SaO2% (BldA) [Mass fraction] 97 % [facility] 04-15-2023 12:15-0400 Systolic blood pressure 134 mm[Hg] [facility] 04-15-2023 11:08-0400 Blood Pressure Location Valdemar KAPLE [facility] 04-15-2023 11:08-0400 Body temperature 98.06 [degF] Valdemar KAPLE [facility] 04-15-2023 11:08-0400 Diastolic blood pressure 78 mm[Hg] Valdemar KAPLE [facility] 04-15-2023 11:08-0400 Heart rate 77 /min Valdemar KAPLE [facility] 04-15-2023 11:08-0400 Respiratory rate 16 /min Valdemar KAPLE [facility] 04-15-2023 11:08-0400 SaO2% (BldA) [Mass fraction] 98 % Valdemar KAPLE [facility] 04-15-2023 11:08-0400 Systolic blood pressure 124 mm[Hg] Valdemar KAPLE [facility] 04-08-2023 07:59-0400 Body temperature 98.06 [degF] Joseph [facility] 04-08-2023 07:59-0400 Diastolic blood pressure 59 mm[Hg] Joseph Jay [facility] 04-08-2023 07:59-0400 Heart rate 77 /min Joseph Jay [facility] 04-08-2023 07:59-0400 Respiratory rate 16 /min Joseph Jay [facility] 04-08-2023 07:59-0400 SaO2% (BldA) [Mass fraction] 97 % Joseph Jay [facility] 04-08-2023 07:59-0400 Systolic blood pressure 146 mm[Hg] Joseph Jay [facility] 04-08-2023 07:44-0400 Body temperature 98.06 [degF] Joseph Jay [facility] 04-08-2023 07:44-0400 Diastolic blood pressure 68 mm[Hg] Joseph Jay [facility] 04-08-2023 07:44-0400 Heart rate 81 /min Joseph Jay [facility] 04-08-2023 07:44-0400 Respiratory rate 16 /min Joseph Jay [facility] 04-08-2023 07:44-0400 SaO2% (BldA) [Mass fraction] 97 % Joseph Jay [facility] 04-08-2023 07:44-0400 Systolic blood pressure 133 mm[Hg] Joseph Jay [facility] 07-19-2023 17:29-0400 Diastolic blood pressure 62 mm[Hg] Anyi Ghosh MD Work Phone: [employer] 03-10-2023 17:29-0400 Heart rate 66 /min Anyi Ghosh MD Work Phone: [employer] [facility] 03-10-2023 17:29-0400 Respiratory rate 15 /min Anyi Ghosh MD Work Phone: [employer] 03-10-2023 17:29-0400 SaO2% (BldA) [Mass fraction] 98 % Anyi Ghosh MD Work Phone: [employer] 03-10-2023 17:29-0400 Systolic blood pressure 108 mm[Hg] Anyi Ghosh MD Work Phone: [employer] 03-10-2023 07:55-0400 Body temperature 97.3 [degF] Anyi Ghosh MD Work Phone: [employer] 03-09-2023 22:17-0400 Body height 167.6 cm Anyi Ghosh MD Work Phone: [employer] 03-09-2023 22:17-0400 Body mass index (BMI) [Ratio] 25.5 kg/m2 Anyi Ghosh MD Work Phone: [employer] 03-09-2023 22:17-0400 Body weight 71.67 kg Anyi Ghosh MD Work Phone: [employer] 02-22-2023 07:30-0400 Body temperature 98.01 [degF] Carlos Melendez DO Work Phone: [employer] [facility] 02-22-2023 07:30-0400 Diastolic blood pressure 64 mm[Hg] Carlos Melendez DO Work Phone: [employer] [facility] 02-22-2023 07:30-0400 Heart rate 65 /min Carlos Melendez DO Work Phone: [employer] 02-22-2023 07:30-0400 SaO2% (BldA) [Mass fraction] 98 % Carlos Melendez DO Work Phone: [employer] 02-22-2023 07:30-0400 Systolic blood pressure 106 mm[Hg] Carlos Melendez DO Work Phone: [facility] 24h00 02-21-2023 19:29-0400 Respiratory rate 18 /min Carlos Melendez DO Work Phone: [facility] 24h00 02-15-2023 07:47-0400 Body temperature 37.0 Carlos Melendez DO Work Phone: [employer] 02-14-2023 05:00-0400 Body mass index (BMI) [Ratio] 25.62 kg/m2 Carlos Melendez DO Work Phone: [facility] 24h00 02-14-2023 05:00-0400 Body weight 72 kg Carlos Melendez DO Work Phone: [facility] 24h00 02-14-2023 01:22-0400 Body temperature 37.0 Carlos Melendez DO Work Phone: [facility] 24h00 02-14-2023 00:52-0400 Body height 167.6 cm Carlos Melendez DO Work Phone: [facility] 24h00 12-22-2022 11:10-0400 Blood Pressure Location Valdemar DANELLE [facility] 12-22-2022 11:10-0400 Body temperature 98.78 [degF] Valdemar DANELLE [facility] 12-22-2022 11:10-0400 Diastolic blood pressure 80 mm[Hg] Valdemar MCCLENDON [facility] 12-22-2022 11:10-0400 Heart rate 82 /min Valdemar MCCLENDON [facility] 12-22-2022 11:10-0400 SaO2% (BldA) [Mass fraction] 96 % Valdemar KAPLE [facility] 12-22-2022 11:10-0400 Systolic blood pressure 124 mm[Hg] Valdemar KAPLE [facility] 12-20-2022 14:50-0400 Body height 170.18 cm Karen Marshall Other [employer] Other 12-20-2022 14:50-0400 Body mass index (BMI) [Ratio] 23.33 kg/m2 Karen Marshall Other [employer] Other 12-20-2022 14:50-0400 Body temperature 99.3 [degF] Karen Marshall Other [employer] Other 12-20-2022 14:50-0400 Body weight 67.59 kg Karen Marshall Other [employer] Other 12-20-2022 14:50-0400 Respiratory rate 16 /min Karen Marshall Other [employer] Other 12-20-2022 14:50-0400 SaO2% (BldA) [Mass fraction] 98 % Karen Marshall Other [employer] Other 09-24-2022 08:54-0500 Blood Pressure Location Valdemar KAPLE [facility] 09-24-2022 08:54-0500 Diastolic blood pressure 82 mm[Hg] Valdemar KAPLE [facility] 09-24-2022 08:54-0500 Heart rate 76 /min Valdemar KAPLE [facility] 09-24-2022 08:54-0500 Respiratory rate 18 /min Valdemar KAPLE [facility] 09-24-2022 08:54-0500 SaO2% (BldA) [Mass fraction] 100 % Valdemar KAPLE [facility] 09-24-2022 08:54-0500 Systolic blood pressure 120 mm[Hg] Valdemar KAPLE [facility] 07-15-2022 12:38-0500 Blood Pressure Location Donna Cogar [facility] 07-15-2022 12:38-0500 Body temperature 98.6 [degF] Donna Cogar [facility] 07-15-2022 12:38-0500 Diastolic blood pressure 72 mm[Hg] Donna Cogar [facility] 07-15-2022 12:38-0500 Heart rate 67 /min Donna Cogar [facility] 07-15-2022 12:38-0500 SaO2% (BldA) [Mass fraction] 98 % Donna Cogar [facility] 07-15-2022 12:38-0500 Systolic blood pressure 118 mm[Hg] Donna Cogar [facility] 06-23-2022 09:06-0400 Blood Pressure Location Valdemar MCCLENDON [facility] 06-23-2022 09:06-0400 Body temperature 98.24 [degF] Valdemar KAPLE [facility] 06-23-2022 09:06-0400 Diastolic blood pressure 72 mm[Hg] Valdemar KAPLE [facility] 06-23-2022 09:06-0400 Heart rate 82 /min Valdemar KAPLE [facility] 06-23-2022 09:06-0400 Respiratory rate 16 /min Valdemar KAPLE [facility] 06-23-2022 09:06-0400 SaO2% (BldA) [Mass fraction] 98 % Valdemar KAPLE [facility] 06-23-2022 09:06-0400 Systolic blood pressure 118 mm[Hg] Valdemar KAPLE [facility] 03-12-2022 08:09-0400 Blood Pressure Location Valdemar KAPLE [facility] 03-12-2022 08:09-0400 Body temperature 98.24 [degF] Valdemar KAPLE [facility] 03-12-2022 08:09-0400 Diastolic blood pressure 62 mm[Hg] Valdemar KAPLE [facility] 03-12-2022 08:09-0400 Heart rate 68 /min Valdemar KAPLE [facility] 03-12-2022 08:09-0400 Respiratory rate 16 /min Valdemar KAPLE [facility] 03-12-2022 08:09-0400 SaO2% (BldA) [Mass fraction] 100 % Valdemar KAPLE [facility] 03-12-2022 08:09-0400 Systolic blood pressure 110 mm[Hg] Valdemar KAPLE [facility] 12-04-2021 13:39-0400 Blood Pressure Location Valdemar KAPLE [facility] 12-04-2021 13:39-0400 Body temperature 98.24 [degF] Valdemar KAPLE [facility] 12-04-2021 13:39-0400 Diastolic blood pressure 76 mm[Hg] Valdemar KAPLE [facility] 12-04-2021 13:39-0400 Heart rate 87 /min Valdemar KAPLE [facility] 12-04-2021 13:39-0400 Respiratory rate 16 /min Valdemar KAPLE [facility] 12-04-2021 13:39-0400 SaO2% (BldA) [Mass fraction] 98 % Valdemar KAPLE [facility] 12-04-2021 13:39-0400 Systolic blood pressure 116 mm[Hg] Valdemar KAPLE [facility] Encounters Encounter Date Encounter Type Care Provider Facility Start: 08-17-2025 ambulatory Valdemar MCCLENDON Facility: [facility] Start: 05-28-2025 End: 05-28-2025 ambulatory Yaya Johnson MD Facility: [facility] Start: 05-10-2025 End: 05-10-2025 ambulatory Valdemar MCCLENDON Facility:[facility] Start: 05-10-2025 End: 05-10-2025 Patient encounter procedure Valdemar MCCLENDON [facility] Start: 03-05-2025 End: 03-05-2025 ambulatory Yaya Johnson MD Facility: [place] Start: 02-27-2025 End: 02-27-2025 ambulatory Valdemar MCCLENDON Facility:[facility] Start: 02-27-2025 End: 02-27-2025 Patient encounter procedure Valdemar MCCLENDON [facility] Start: 02-08-2025 End: 02-08-2025 ambulatory Valdemar MCCLENDON Facility:[facility] Start: 02-08-2025 End: 02-08-2025 Patient encounter procedure Valdemar MCCLENDON [facility] Start: 01-22-2025 End: 01-22-2025 ambulatory [facility] MD [facility] Start: 11-09-2024 [facility] Quiana Hernández rne Other [facility] Office Start: 10-31-2024 End: 10-31-2024 ambulatory Valdemar MCCLENDON Facility:[facility] Start: 10-30-2024 End: 10-30-2024 ambulatory Yaya Johnson MD Facility: [place] Start: 09-25-2024 End: 09-25-2024 ambulatory Yaya Johnson MD Facility: [facility] Start: 08-01-2024 End: 08-01-2024 ambulatory Valdemar MCCLENDON Facility:[facility] Start: 08-01-2024 End: 08-01-2024 Patient encounter procedure Valdemar MCCLENDON [facility] Start: 07-17-2024 End: 07-17-2024 Emergency department patient visit VALDEMAR MCCLENDON [facility] Start: 05-02-2024 End: 05-02-2024 Patient encounter procedure Valdemar MCCLENDON [facility] Start: 01-21-2024 End: 01-21-2024 Patient encounter procedure Valdemar MCCLENDON [facility] Start: 11-26-2023 End: 11-26-2023 Patient encounter procedure Valdemar MCCLENDON [facility] Start: 10-14-2023 End: 10-14-2023 Patient encounter procedure Valdemar MCCLENDON [facility] Start: 07-09-2023 End: 07-09-2023 Patient encounter procedure Valdemar MCCLENDON [facility] Start: 05-28-2023 End: 05-31-2023 [facility]: 04-15-[facility]23 End: 04-15-2023 Emergency department patient visit Darleen Howellstephen [facility] Start: 04-15-2023 End: 04-15-2023 Patient encounter procedure Valdemar MCCLENDON [facility] Start: 04-08-2023 End: 04-08-2023 Emergency department patient visit Joseph Thompson [facility] Start: 03-09-2023 End: [facility]: 03-09-[facility]23 End: 03-10-2023 Emergency department patient visit Anyi Ghosh MD Work Phone: [facility] Comment on above: Syncope and collapse (Primary Dx); SDH (subdural hematoma) (HCC) Start: 02-22-2023 End: 03-04-2023 Evaluation and management of inpatient PHYSICIAN NO FAMILY Facility:[facility] Start: 02-14-2023 End: 02-22-2023 Evaluation and management of inpatient FELISA SEGURA [facility] Start: 02-14-2023 End: 02-22-2023 Evaluation and management of inpatient Carlos Melendez DO Work Phone: [id number] [phone] Onc/Med Surg Comment on above: Fall, initial encoun ter (Primary Dx); SDH (subdural hematoma) (HCC) Start: 12-22-2022 End: 12-22-2022 Patient encounter procedure Valdemar MCCLENDON [facility] Start: 12-20-2022 End: 12-20-2022 ambulatory Karen Marshall Other [facility] Other Start: 12-20-2022 Office outpatient ne w 30 minutes Karen Marshall [facility] Start: 09-24-2022 End: 09-24-2022 Patient encounter procedure Valdemar MCCLENDON [facility] Start: 07-15-2022 End: 07-15-2022 Patient encounter procedure Donna Arora [facility] Start: 06-23-2022 End: 06-23-2022 Patient encounter procedure Valdemar MCCLENDON [facility] Start: 03-12-2022 End: 03-12-2022 Patient encounter procedure Valdemar MCCLENDON [facility] Start: 12-04-2021 End: 12-04-2021 Patient encounter procedure Valdemar MCCLENDON [facility] Start: 09-29-2021 Encounter for preprocedural laboratory examination DR LEONILA PEREZ [facility] Start: 09-26-2021 End: 09-26-[address] LEONILA PEREZ Facility:[facility]1 Start: 09-25-2021 End: 09-26-[address] LEONILA PEREZ Facility:[facility] Start: 09-25-2021 End: 09-26-2021 Encounter for preprocedural laboratory examination DR LEONILA PEREZ Facility:[facility] Start: 09-22-2021 Encounter for preprocedural cardiovascular examination DR LEONILA PEREZ [facility] Start: 09-18-2021 End: 09-19-[address] LEONILA PEREZ Facility:[facility] Start: 08-19-2021 End: 08-19-[address] LEONILA PEREZ Facility:[facility]1 Start: 07-21-2021 End: 07-22-[address] NONE LISTED REQUEST Facility:[facility]1 Start: 05-09-2021 End: 05-09-2021 RhD negative Valdemar MCCLENDON [facility] Start: 04-25-2021 End: 04-26-[address] CRISS MORALES Facility:[facility]1 Start: 04-21-2021 End: 04-23-[address] NONE LISTED REQUEST Facility:H1 Start: 04-10-2021 End: 04-23-[address] DOCTOR RUBI Facility:[facility]1 Start: 03-19-2021 End: 03-19-[address] CLAUDETTE DODD Facility:[facility]1 Start: 10-29-2017 End: 11-03-2017 Ambulatory EITAN LEWIS [facility] Procedures Date Procedure Procedure Detail Performing Clinician Start: 11-09-2024 Nerve conduction missy dies 5-6 studies Quiana Sanders Start: 03-10-2023 Basic metabolic pane l calcium total Amer Felicia-Hafiz Afaneh MD Work Phone: Start: 03-09-2023 COVID-19, RAPID David Herrera MD Work Phone: Start: 03-09-2023 Ecg routine ecg w/le ast 12 lds w/i&r Philip Lainez DO Work Phone: Start: 03-09-2023 Drug tst prsmv instr mnt chem analyzers pr date Philip Lainez DO Work Phone: Start: 03-09-2023 Ct head/brain w/o co ntrast material Philip Lainez DO Work Phone: Start: 03-09-2023 Assay of ethanol Alexadimas Dahl DO Work Phone: Start: 03-09-2023 End: [...] MG FOR LOW K Fabiola Jose Sudarshan [employer]PER[employer] Work Phone: Start: 02-20-2023 BASIC METABOLIC PANE L W/ REFLEX TO MG FOR LOW K Fabiola Jose Sudarshan [employer]ING SUPERVISOR Work Phone: Start: 02-19-2023 BASIC METABOLIC PANE L W/ REFLEX TO MG FOR LOW K Fabiola Jose Sudarshan [employer]ING SUPERVISOR Work Phone: Start: 02-19-2023 Blood count complete auto&auto difrntl wbc Fabiola Jose Sudarshan [employer]ING SUPER[employer]OR Work Phone: Start: 02-18-2023 Ct head/brain w/o co ntrast material Fabiola Heaton [employer] SUPER[employer]OR Work Phone: Start: 02-15-2023 Assay of ammonia Aaron Lopez MD Work Phone: Start: 02-15-2023 Blood gases any comb ination ph pco2 po2 co2 hco3 Dottie Cuello MD Work Phone: Start: 02-15-2023 Calcium ionized Chata Cuello MD Work Phone: Start: 02-15-2023 Comprehensive metabo lic panel Randall ePreira MD Work Phone: Start: 02-14-2023 Radex elbow 2 views Serge Pereira MD Work Phone: Start: 02-14-2023 Assay of lactate Keya Teller DO Work Phone: Start: 02-14-2023 Radex spine cervical 2 or 3 views Randall Pereira MD Work Phone: Start: 02-14-2023 Ct head/brain w/o co ntrast material Judi Clifford DO Work Phone: Start: 02-14-2023 Drug tst prsmv instr mnt chem analyzers pr date Judi Clifford DO Work Phone: Start: 02-14-2023 Urnls dip stick/tabl et rgnt auto w/o microscopy Judi Clifford DO Work Phone: Start: 02-14-2023 BASIC METABOLIC PANE L W/ REFLEX TO MG FOR LOW K Judi Clifford DO Work Phone: Start: 02-14-2023 Calcium ionized Judi Donovan Clifford DO Work Phone: Start: 02-14-2023 Hepatic function panel Judi Clifford DO Work Phone: Start: 02-14-2023 Iadna s aureus methi cillin resist amp probe tq Felisa Segura MD Work Phone: Start: 06-25-2023 Ecg routine ecg w/le ast 12 lds trcg only w/o i&r Dottie Cuello MD Work Phone: Start: 02-14-2023 Ct cervical spine w/ o contrast material Keya Teller DO Work Phone: Start: 02-14-2023 Ct head/brain w/o co ntrast material Keya Teller DO Work Phone: Start: 02-14-2023 CT LUMBAR SPINE TRAU MA RECONSTRUCTION Keya Teller DO Work Phone: Start: 02-14-2023 CT THORACIC SPINE TR AUMA RECONSTRUCTION Keya Ulises DO Work Phone: Start: 02-14-2023 Ct thorax w/contrast material Keya Teller DO Work Phone: Start: 02-14-2023 TRAUMA PANEL [...] DTaP/Tdap/Td vaccine (2 - Td or Tdap) [facility] Start: 04-09-2023 End: 04-09-2023 Patient encounter procedure 04/09/2023 Office Visit Neurosurgery Yara King W, [employer] SUPER[employer] [address] [facility] [address] [place] [address] [facility] Start: 03-23-2023 Influenza vaccination Flu vaccine (# 1) [facility] Start: 03-05-2023 End: 03-05-2023 Patient encounter procedure 03/05/2023 Office Visit Neurosurgery Yara King, [employer]PER[employer] [address] [facility] [address] [facility] [address] [place] [address] [facility] Start: 03-01-2023 End: 02-16-2024 CT HEAD WO CONTRAST CT HEAD WO CONTRAST Imaging Routine SDH (subdural hematoma) (HCC) Expected: 03/01/2023, Expires: 02/16/2024 [facility] Work Phone: Comment on above: Expected: 03/01/2023 , Expires: 02/16/2024 Start: 2015 Screening for malign ant neoplasm of cervix [facility] Start: 2006 Screening for malign ant neoplasm of cervix Pap smear [facility] Start: 2003 Hepatitis C screening Hepatitis C sc reen [facility] Start: 2000 HIV screening HIV screen [facility] Start: 1997 Depression Screen Depression Screen [facility] Start: 1986 Varicella vaccine (1 of 2 - 2-dose childhood series) Varicella vaccine (1 of 2 - 2-dose childhood series) [facility] Start: 1985 COVID-19 Vaccine (#1) COVID-19 Vacci ne (#1) [facility] End: 03-13-2023 CBC W Auto Differential panel - Blood CBC with Auto Differential Lab Routine Daily for 4 Occurrences starting 03/10/2023 until 03/13/2023, 1 completed [facility] Work Phone: Comment on above: Daily for 4 Occurren toribio starting 03/10/2023 until 03/13/2023, 1 completed End: 03-13-2023 Magnesium [Mass/volume] in Serum or Plasma Magnesium Lab Routine Daily for 4 Occurrences starting 03/10/2023 until 03/13/2023, 1 completed [facility] Comment on above: Daily for 4 Occurren toribio starting 03/10/2023 until 03/13/2023, 1 completed End: 02-14-2023 Speech and language therapy regime Speech language pathology evaluation BLAST FURNACE BLOWER Routine One Time for 1 Occurrences starting 02/14/2023 until 02/14/2023 [facility] Work Phone: Comment on above: One Time for 1 Occur rences starting 02/14/2023 until 02/14/2023 End: 03-27-2023 Spirometry panel Incentive spirometry Respiratory Care Routine Every 1hr while awake for 41 Days starting 02/14/2023 until 03/27/2023 [facility] Comment on above: Every 1hr while awak e for 41 Days starting 02/14/2023 until 03/27/2023 Immunizations Immunization Date Immunization Notes Care Provider Mary Ellen madison 05-25-2019 influenza virus vaccine, unspecified formulation Valdemar MCCLENDON [facility] 09-27-2013 tetanus toxoid, reduced diphtheria toxoid, and acellular pertussis vaccine, adsorbed Valdemar MCCLENDON [facility] 05-28-2011 influenza virus vaccine, unspecified formulation Valdemar MCCLENDON [facility] NEGATED: Highlighted row has not occurred!05-02-2024 influenza virus vaccine, unspecified formulation Valdemar MCCLENDON [facility] NEGATED: Highlighted row has not occurred!07-09-2023 influenza virus vaccine, unspecified formulation Valdemar CORONALE [facility] NEGATED: Highlighted row has not occurred!09-24-2022 influenza virus vaccine, unspecified formulation Valdemar MCCLENDON [facility] NEGATED: Highlighted row has not occurred!09-24-2022 SARS-CoV-2 mRNA (waldojennnamaleisha 5y-11y) vaccine Valdemar MCCLENDON [facility] Payers Date Payer Category Payer Private Health Insurance [id number] 2024 Private Health Insurance [id number] 2024 Private Health Insurance [id number] 2024 Worker's Compensation 2023 Self-pay 2022 Private Health Insurance [id number] 1985 Unknown [id number] 2.16.84 0.1.285521.3.579.2.593 1985 Unknown [id number] 2.16.84 0.1.846292.3.579.2.593 1985 Unknown [id number] 2.16.84 0.1.318406.3.579.2.593 1985 Unknown [id number] 2.16.84 0.1.179886.3.579.2.593 1985 Unknown [id number] 2.16.84 0.1.942836.3.579.2.593 1985 Unknown [id number] 2.16.84 0.1.163790.3.579.2.593 1985 Unknown [id number] 2.16.84 0.1.809061.3.579.2.593 1985 Unknown [id number] 2.16.84 0.1.117567.3.579.2.593 1985 Unknown [id number] 2.16.84 0.1.100202.3.579.2.593 1985 Unknown [id number] 2.16. 840.1.727800.3.579.2.175 1985 Unknown [id number] 2.16. 840.1.714683.3.579.2.175 1985 Unknown [id number] 2.16. 840.1.164360.3.579.2.175 1985 Unknown [id number] 2.16. 840.1.416902.3.579.2.175 1985 Unknown [id number] 2.16.8 40.1.943857.3.579.2.1286 1985 Unknown [id number] 2.16.8 40.1.029278.3.579.2.727 1985 Unknown [id number] 2.16.8 40.1.083420.3.579.2.727 1985 Unknown [id number] 2.16.8 40.1.482354.3.579.2.727 1985 Unknown [id number] 2.16.8 40.1.620748.3.579.2.727 1985 Unknown [id number] 2.16.8 40.1.256100.3.579.2.727 1985 Unknown [id number] 2.16.8 40.1.746461.3.579.2.727 1985 Unknown [id number] 2.16.8 40.1.330009.3.579.2.727 1985 Unknown [id number] 2.16. 840.1.118364.3.579.2.196 1985 Unknown [id number] 2.16. 840.1.426846.3.579.2.196 1985 Unknown [id number] 2.16. 840.1.756735.3.579.2.196 1985 Unknown [id number] 2.16. 840.1.817996.3.579.2.196 1985 Unknown [id number] 2.16. 840.1.903509.3.579.2.196 1959 Unknown [id number] Unknown [id number] 2.16.8 40.1.410081.3.579.2.531 Worker's Compensation [id number] Social History Date Type Detail Facility Start: 03-07-2021 Tobacco smoking status Light t obacco smoker (finding) [facility] Start: 07-15-2022 End: 05-10-2025 Tobacco smoking status Ex-smoker (finding) [facility] Sex Assigned At Female [facility] Tobacco smoking status Never [facility] Tobacco smoking stat [facility] Tobacco smoking consumption unknown [facility] Start: 1985 Sex Assigned At Not on file B [facility] Start: *Tobacco [facility] [place] Sexual Orientation [facility] Start: 12-04-2009 Sex Female (finding) [facility] Functional Status Date Assessment Result Facility 08-01-2024 Functional Status N/A [facility] 05-02-2024 Functional Status N/A [facility] 01-21-2024 Functional Status N/A [facility] 11-26-2023 Functional Status N/A [facility] 10-14-2023 Functional Status N/A [facility] 07-09-2023 Functional Status N/A [facility] 04-15-2023 Functional Status N/A [facility] 04-15-2023 Functional Status N/A [facility] 04-08-2023 Functional Status N/A [facility] 12-22-2022 Functional Status N/A [facility] 09-24-2022 Functional Status N/A [facility] 07-15-2022 Functional Status N/A [facility] 06-23-2022 Functional Status N/A [facility] 03-12-2022 Functional Status N/A [facility] Clinical Notes 03-12-2022 to 05-10-2025 [...] Follow these instructions at home: Medicines Take zunw-izf-ivsebqm and prescription medicines only as told by your health care provider. Ask your health care provider if the medicine prescribed to you: ?Requires you to avoid driving or using machinery. ?Can cause constipation. You may need to take these actions to prevent or treat constipation: ?Drink enough fluid to keep your urine pale yellow. ?Take uilq-tuw-ikevuir or prescription medicines. ?Eat foods that are [...] important. Where to find more information [place] of Neurological Disorders and Stroke: www.ninds.nih.gov Contact [...] the National Suicide Prevention Lifeline at or 613. This is open 24 hours a day. Text the Crisis Text Line at 255280. Summary Complex regional pain syndrome (CRPS) is [...] provider. Document Revised: 04/08/2022 Document Reviewed: 04/08/2022 [employer]ick Patient Education 2023 [email or web address]. Follow Up Care 02/08/2025 14:22:24 With:DANELLE MOREJON FAAFP, Valdemar Garcia, DIANNE, PED Address: [address] [place] [address] [place], [facility], [place] [address] When:Within 3 Month(s) [facility] 05-10-2025 Note Patient Education [...] these instructions at home: Medicines ??? Take jlbg-cvt-xodnmrx and prescription medicines only as told by your health care provider. ??? Ask your health care provider if the medicine prescribed to you: ? Requires you to avoid driving or using machinery. ? Can cause constipation. You may need to take these actions to prevent or treat constipation: ? Drink enough fluid to keep your urine pale yellow. ? Take pjjv-cea-kksgemx or prescription medicines. ? Eat foods that [...] Where to find more information ??? [place] of Neurological Disorders and Stroke: www.ninds.nih.gov Contact [...] the National Suicide (more content not included)... [facility] 02-08-2025 Hospital Discharg e instructions Patient Education [...] correctly. Follow these instructions at home: Take zzud-laq-cmrgcsp and prescription medicines only as told by [...] provider. Document Revised: 03/18/2022 Document Reviewed: 07/18/2021 [employer]ick Patient Education 2022 [email or web address]. Follow Up Care 10/31/2024 09:33:34 With:DANELLE MOREJON FAAFP, Valdemar Garcia, DIANNE, PED Address: [address] [facility], [facility], [place] [address]- When:Within 3 Month(s) [facility] 02-08-2025 Note Patient Education [...] Follow these instructions at home: ??? Take yoej-olh-zqibsiw and presc (more content not included)... [facility] 10-31-2024 Note Patient Education Mental and Behavioral [...] primary care provider or a mental health foster care social worker. Your health care provider may use a [...] Behavioral management. You may work with a field hockey and lacrosse coach who is specially trained to help people with ADHD manage and organize activities and function more effectively. Follow these instructions at home: Medicines ??? Take xnue-ose-ckgozbu and prescription medicines only as told by [...] closely with y (more content not included)... [facility] 08-01-2024 Hospital Discharg e instructions Patient Education [...] require a prescription. You can also purchase hkrp-aei-xyoiwyo medicines. Medicines may have nicotine in them [...] and encouragement. Call telephone quitlines, such as 6-263-EBQG-NOW, reach out to support groups, or work [...] provider. Document Revised: 07/31/2022 Document Reviewed: 07/31/2022 [employer]ick Patient Education 2023 [email or web address]. Follow Up Care 05/02/2024 10:59:21 With:DANELLE MOREJON FAAFP, DIANNE Danielle, PED Address: [address] [place] [address] Erica, [facility], [place] [address]- When:Within 3 Month(s) [facility] 08-01-2024 Note Patient Education [...] require a prescription. You can also purchase kdva-psa-gwzbrux medicines. Medicines may have nicotine in them [...] and encouragement. Call telephone quitlines, such as 9-346-WLVA-NOW, reach out to support groups, or work [...] away, not s (more content not included)... [facility] 05-02-2024 Hospital Discharg e instructions Patient Education [...] Centers for Disease Control and Prevention: www.cdc.gov [place] Lung Association: www.lung.org This information is not intended to replace advice given to you by your health care provider. Make sure you discuss any questions you have with your health care provider. Document Revised: 10/02/2021 Document Reviewed: 10/02/2021 ElseDragonRAD Patient Education 2023 [employer] Inc. Follow Up Care 01/21/2024 10:09:19 With:DANELLE MOREJON FAAFP, DIANNE Danielle, PED Address: [address], [facility], [place] [address]- When:Within 3 Month(s) [facility] 01-21-2024 Hospital Discharg e [...] Centers for Disease Control and Prevention: www.cdc.gov [place] Lung Association: www.lung.org This information is not intended to replace advice given to you by your health care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 patient's emergency contact from patient's cell phone, her sister, Lottie Schrader, ([phone]). Toggle Press Folder And Feeder made several attempts to contact her sister, with no success. Toggle Press Folder And Feeder later reached patient's sister utilizing patient's cell phone. Toggle Press Folder And Feeder facilitated medical update for patient's sister, by phone, as she resides in [place]. Toggle Press Folder And Feeder shared unit phone number and shared patient's TICU room number. Patient's teenage daughter, Thu ([phone]), was also included in call. Patient's sister thanked oracle database consultant for call and support. Toggle Press Folder And Feeder shared patient's sister's information with patient's bedside nurse. PATIENT BELONGINGS: With patient ANY BELONGINGS OF SIGNIFICANT VALUE NOTED: N/A REGISTRATION STAFF NOTIFIED? Yes WHAT IS YOUR SPIRITUAL CARE PLAN FOR THIS PATIENT?: Chaplains can make follow-up visit, per request. Chaplains can be reached 15/03 via [employer]. 02/14/23 0058 Encounter Summary Service Provided For: [...] (comment) (as needed) . Spiritual Care Department [facility] [phone] documented in [facility] Hospital Discharge instructions* Discharge Instructions* Karen Watkins RN - 02/15/2023 11:04 AM EDT Images from the original note were not included. Head Injury Discharge Instructions Thank you for choosing [facility] and [facility] for your recovery needs. The following instructions will help to ensure your comfort and that you are wellprepared for your recovery. Follow-up Visit: The office is located at: [facility] [place] [address], [address], [place] [address] [x] Please have a CT scan of [...] medications. YOU SHOULD CALL THE OFFICE AT [phone] IF YOU HAVE ANY OF THE FOLLOWING: [...] the Traumatic Brain Injury Resource Center at [phone]. This center offers additional therapy, support groups, education and other resources at no cost. The center is located at [address] [place] [address]. You can also visit www.tbirc.org for more information. For resources transitioning back to the community following your trauma, visit [email or web address] General questions or concerns please call the Trauma and General Surgery Clinic at [phone]. If needed, the clinic fax number is [phone]. Trauma is a life-threatening condition. Your doctor [...] Problem List Diagnosis Code SDH (subdural hematoma) ([facility]) S06.5XAA Fall W19.XXXA Isolation/Infection: Isolation No Isolation [...] Assisted Dressing Independent Toileting Assisted Feeding Independent Weeder Thinner Independent Med Delivery whole Wound Care Documentation [...] Readmission: 5 Discharging to Facility/ Agency Name: [facility] Address: Phone: Fax: Dialysis Facility (if applicable) Name: Address: Dialysis Schedule: Phone: Fax: [place]/Money Manager signature: PHYSICIAN SECTION Prognosis: Good Condition at [...] H&P PHYSICIAN SIGNATURE: documented in this encounterB[facility] Hospital Discharge instructions Patient Education 12/22/2022 12:05:29 Influenza, Adult, Tvlp-vf-Jreg Influenza, Adult Influenza is also called the [...] Your doctor may want you to: Take zkkl-cog-byzswxy medicines. Drink plenty of fluids. The flu [...] foods include: ?Bananas. ?Applesauce. ?Rice. ?Lean meats. ?[place]. ?Crackers. Do not eat or drink: ?Fluids that have a lot of sugar or caffeine. ?Alcohol. ?Spicy or fatty foods. General instructions Take tnqu-vzj-nrvgkiu and prescription medicines only as told by [...] use soap and water, use alcohol-based hand sales assistant entertainment and media. Keep all follow-up visits. How is this [...] spreads easily from person to person. Take pdth-pra-uvznudb and prescription medicines only as told by your doctor. Getting a flu shot every year is the best way to not get the flu. This information is not intended to replace advice given to you by your health care provider. Make sure you discuss any questions you have with your health care provider. Document Revised: 03/28/2021 Document Reviewed: 03/28/2021 [employer] Patient Education 2022 [email or web address]. Follow Up Care 09/24/2022 09:32:17 With:DANELLE MOREJON FAAFP, DIANNE Danielle, PED Address: [address] [place] [address] [place] [id number]- When:Within 3 Month(s) [facility] 04-30-2023 Evaluation note* Encounter [...] treatment plan. Patient left in stable condition. [facility] Other 02-02-2023 Hospital Discharge instructions Patient Education [...] primary care provider or a mental health foster care social worker. Your health care provider may use a [...] Behavioral management. You may work with a field hockey and lacrosse coach who is specially trained to help people with ADHD manage and organize activities and function more effectively. Follow these instructions at home: Medicines Take fzoj-rgq-jxbfbtc and prescription medicines only as told by [...] Attention Deficit Disorder Association (ADDA): www.add.org [place] of Mental Health (NIMH): www.nimh.nih.gov Contact a [...] 03/31/2018 Document Revised: 01/01/2020 Document Reviewed: 01/01/2020 [employer] Patient Education 2019 [email or web address]. Follow Up Care 06/23/2022 09:45:13 With:DANELLE MOREJON FAAFP, Valdemar Garcia, DIANNE, PED Address: Alon Maldonado, [facility], [place] [address]- When:Within 3 Month(s) [facility] 11-23-2022 Hospital Discharge instructions [...] at home: Medicines Take, use, or apply zvcg-gmg-dcytrca and prescription medicines only as told by [...] and water are not available, use hand sales assistant entertainment and media. Do not smoke. Avoid being around people [...] 08/09/2006 Document Revised: 01/09/2019 Document Reviewed: 01/09/2019 [employer] Patient Education 2020 [email or web address]. Follow Up Care 07/15/2022 12:19:53 With:DANELLE MOREJON FAAFP, DIANNE Danielle, PED Address: Alon Maldonado, [facility], [place] [address]- When: Unknown [facility] 07-21-2022 Hospital Discharge instructions Patient Education 03/12/2022 08:20:14 Recurrent Migraine Headache, Hnte-dj-Icxw Recurrent Migraine Headache A migraine headache is very bad, throbbing pain that is usually on one side of your head. Recurrentmigraines keep coming back (recurring). Talk with your doctor about what things may bring on (trigger) your migraine headaches. Follow these instructions at home: Medicines Take cskq-fpw-nsyjfno and prescription medicines only as told by [...] bring on (trigger) your migraine headaches. Take hcrp-wyv-svscsvd and prescription medicines only as told by [...] 05/18/2009 Document Revised: 08/12/2018 Document Reviewed: 07/02/2017 [employer] Patient Education 2020 [employer] Follow Up Care 12/04/2021 13:53:38 With:Valdemar MCCLENDON DO, FAAFP, DIANNE, PED Address: [place] [address]- When:Within 3 Month(s) [facility] Evaluation + Plan note Future Appointments Appointment Date:03/12/2022 08:00:00 AM Scheduled Provider:Valdemar MCCLENDON DO, FAAFP Location:[facility] Appointment Type:[facility] Primary Care Evaluation + Plan note Future Appointments Appointment Date:06/19/2022 08:00:00 AM Scheduled Provider:Valdemar MCCLENDON DO, FAAFP Location:[facility] Appointment Type:[facility] Primary Care Evaluation + Plan note Future Appointments Appointment Date:09/24/2022 09:00:00 AM Scheduled Provider:Valdemar MCCLENDON DO, FAAFP Location:[facility] Appointment Type:[facility] Primary Care Evaluation + Plan note Future Appointments Appointment Date:12/22/2022 11:00:00 AM Scheduled Provider:Valdemar MCCLENDON DO, FAAFP Location:[facility] Appointment Type:[facility] Primary Care Evaluation + Plan note Future Appointments Appointment Date:04/15/2023 11:00:00 AM Scheduled Provider:Valdemar MCCLENDON DO, FAAFP Location:[facility] Appointment Type:[facility] Primary Care evaluation + Plan note [...] 01:20:00 PM Scheduled Provider:Valdemar MCCLENDON DO, FAAFP Location:[facility] Appointment Type:FM Open Future Scheduled Tests Radiology* CT Head or Brain w/o Contrast 04/15/23 [facility] Evaluation + Plan note Future Appointments Appointment Date:10/14/2023 08:40:00 AM Scheduled Provider:Valdemar MCCLENDON DO, FAAFP Location:[facility] Appointment Type:FM Open Future Scheduled Tests Radiology* CT Head or Brain w/o Contrast 04/15/23 [facility] Evaluation + Plan note Future Appointments Appointment Date:01/21/2024 08:40:00 AM Scheduled Provider:Valdemar MCCLENDON DO, FAAFP Location:[facility] Appointment Type:FM Open Future Scheduled Tests Radiology* CT Head or Brain w/o Contrast 04/15/23 [facility] Primary [facility] evaluation + Plan note Future Appointments Appointment Date:04/25/2024 09:40:00 AM Scheduled Provider:Valdemar MCCLENDON DO, FAAFP Location:[facility] Appointment Type:FM Open Future Scheduled Tests Radiology* CT Head or Brain w/o Contrast 04/15/23 [facility] Evaluation + Plan note Future Appointments Appointment Date:07/31/2024 09:00:00 AM Scheduled Provider:Valdemar MCCLENDON DO, FAAFP Location:[facility] Appointment Type:FM Open [facility] Primary [facility] Evaluation + Plan note Future Appointments Appointment Date:10/31/2024 09:00:00 AM Scheduled Provider:Valdemar MCCLENDON DO, FAAFP Location:[facility] Appointment Type:FM Open [facility] Evaluation + Plan note Future Appointments Appointment Date:05/10/2025 03:00:00 PM Scheduled Provider:Valdemar MCCLENDON DO, FAAFP Location:[facility] Appointment Type:FM Open Future Scheduled Tests Laboratory* [...] T4 02/08/25 * TgAb+Thyroglobulin,RACHEL or MAYANK 02/08/25 [facility] Evaluation + Plan note Future Appointments Appointment Date:05/10/2025 03:00:00 PM Scheduled Provider:Valdemar MCCLENDON DO, FAAFP Location:[facility] Appointment Type:FM Open Diagnostic Tests Pending * Thyroid Perox.tpo Ab 02/27/25 * TgAb+Thyroglobulin,RACHEL or MAYANK 02/27/25 * HCV Antibody RFX to Quant PCR 02/27/25 Future Scheduled Tests Laboratory* Thyroid Perox.tpo Ab 02/08/25 * HCV Antibody RFX to Quant PCR 10/31/24 * Hepatic Function Panel 05/23/25 * Lipid Panel 10/31/24 * Thyroid Stimulating Hormone 05/23/25 * Free T4 05/23/25 [facility] Evaluation + Plan note Future Appointments Appointment Date:08/17/2025 08:00:00 AM Scheduled Provider:Valdemar MCCLENDON DO, FAAFP Location:[facility] Appointment Type:FM Open Future Scheduled Tests Laboratory* Thyroid Perox.tpo Ab 02/08/25 * HCV Antibody RFX to Quant PCR 10/31/24 * Hepatic Function Panel 05/23/25 * Lipid Panel 10/31/24 * Thyroid Stimulating Hormone 05/23/25 * Free T4 05/23/25 [facility] Evaluation note* Diagnosis SDH (subdural hematoma) (HCC)- Primary Subdural hemorrhage Fall, initial encounter SDH (subdural hematoma) (HCC) Subdural hemorrhage Fall Unspecified fall [facility]* Diagnosis Syncope and collapse- Primary Syncope and collapse SDH (subdural hematoma) (HCC) Subdural hemorrhage Hygroma Lymphangioma, any site Orthostatic hypotension Falls frequently Personal history of fall documented in this encounter [facility] general Narrative - Reported* Type Description Date Medical History asthma Medical History ADHD Medical History depression/anxiety Surgical History t&a Surgical History x2 Surgical History tubal ligation [facility] Other Hospital course Narrative No data available for this section [facility] Hospital Discharge instructions No data available for this section [facility] Progress note No data available for this section [facility] Summary Purpose Family History [...] Agents on File Name Relationship [facility] Mary Lara Parent Primary Decision Maker Reason for Referral Specialty Diagnoses / Procedures Referred By Contac t Referred To Contact Occupational Therapy Diagnoses Syncope and collapse SDH (subdural hematoma) (HCC) [facility] [address] [place] [address] Referral ID Status Reason Start Date Expiration Date Visits Requested Visits Authorized [id number] Open Patient Preference 03/10/2023 09/06/2023 1 1 Scheduling Instructions Evaluate and Treat Question Answer Reason For External Referral? Patient Preference Comments The patient can be scheduled with any member of the group, including the provider with the first available appointments. Specialty Diagnoses / Procedures Referred By Contac t Referred To Contact Speech Pathology Diagnoses Syncope and collapse SDH (subdural hematoma) (HCC) [facility] [address] [place] [address] Referral ID Status Reason Start Date Expiration Date Visits Requested Visits Authorized [id number] Open Patient Preference 03/10/2023 09/06/2023 1 1 Scheduling Instructions Evaluate and Treat for cognition Specialty Diagnoses / Procedures Referred By Contac t Referred To Contact Physical Therapist Diagnoses Syncope and collapse SDH (subdural hematoma) ([facility]) [facility] [address] [place] [address] Referral ID Status Reason Start Date Expiration Date Visits Requested Visits Authorized [id number] Open Patient Preference 03/10/2023 09/06/2023 1 1 Scheduling Instructions Evaluate and Treat for Vestibular Therapy Specialty Diagnoses / Procedures Referred By Contac t Referred To Contact Radiology Diagnoses SDH (subdural hematoma) (HCC) Procedures [place] [address] [place] [address] Referral ID Status Reason Start Date Expiration Date V isits Requested Visits Authorized [id number] Pending Review 03/01/2023 02/29/2024 1 1 Additional Source Comments INFORMATION SOURCE (unrecogn ized section and content) DATE CREATED AUTHOR 02/11/2018 [place] DATE CREATED AUTHOR AUTHOR'S ORGANIZ ATION 10/03/2021 [facility] DATE CREATED AUTHOR AUTHOR'S ORGANIZ ATION 03/05/2023 [facility] DATE CREATED AUTHOR AUTHOR'S ORGANIZ ATION 07/15/2023 [facility] DATE CREATED AUTHOR AUTHOR'S ORGANIZ ATION 07/18/2024 [facility] DATE CREATED AUTHOR AUTHOR'S ORGANIZ ATION 03/03/2025 Edwards Oconto [facility] DATE CREATED AUTHOR AUTHOR'S ORGANIZ ATION 03/04/2025 Edwards Elton [facility] DATE CREATED AUTHOR AUTHOR'S ORGANIZ ATION 05/12/2025 Edwards Elton [facility] DATE CREATED AUTHOR AUTHOR'S ORGANIZ ATION 06/02/2025 [facility] Care Team (unrecognized sect ion and content) Personnel Name: Valdemar MCCLENDON DO, FAAFP Address: [address] [place] [address] Name: Nimisha Ramirez I Name: Chantelle Wasserman Personnel Name: Valdemar MCCLENDON DO, FAAFP Address: Address: [address] [place] [address] Name: Nimisha Ramirez I Name: Chantelle Wasserman Personnel Name: Valdemar MCCLENDON DO, FAAFP Address: Address: [address] [place] [address] Name: Nimisha Ramirez I Name: Chantelle Wasserman Personnel Name: Valdemar MCCLENDON DO, FAAFP Address: Address: [address] [place] [address] Name: Nimisha Ramirez I Name: Chantelle Wasserman Personnel Name: Valdemar MCCLENDON DO, FAAFP Address: Address: [address] [place] [address] Name: Nimisha Ramirez I Name: Chantelle Wasserman Personnel Name: Valdemar MCCLENDON DO, FAAFP Address: Address: [address] [place] [address] Name: Nimisha Ramirez I Name: Chantelle Wasserman Personnel Name: DANELLE GOMEZ, Valdemar A Address: Address: [address] [place] [address]- Name: AshleyNimisha I Name: Chantelle Wasserman Personnel Name: [facility]ON [facility] Address: Address: [address] [place] [address] Name: AshleyNimisha I Name: Chantelle Wasserman Personnel Name: DANELLE [facility]JON [facility] Address: Address: [address] [place] [address]- Name: AshleyNimisha I Name: Chantelle Wasserman Personnel Name: DANELLE [facility]JON [facility] Address: Address: [address] [place] [address]- Name: Ashley Nimisha I Name: Chantelle Wasserman Personnel Name: DANELLE GOMEZValdemar A Address: Address: [address] [place] [address]- Name: Ashely Nimisha I Name: Chantelle Wasserman Personnel Name: DANELLE MOREJON [facility] Address: Address: [address] [place] [address]- Name: Ashley Nimisha Yojana Name: Chantelle Wasserman Personnel Name: Valdemar MCCLENDON DO, FAAFP A Address: Address: [address] [place] [address]- Name: Ashley Nimisha I Name: Chantelle Wasserman Personnel Name: DANELLE MOREJON [facility] Address: Address: [address] [place] [address]- [place] Name: Ashley Nimisha I Name: Chantelle Wasserman Personnel Name: DANELLE MOREJON [facility] Address: [address] [place] [address]- Telecom: Name: Nimisha Ramirez I Name: Chantelle Wasserman Personnel Name: DANELLE MOREJON [facility] Address: [address] [place], [place] [address] Telecom: Name: Nimisha Ramirez I Name: Chantelle Wasserman Personnel Name: Valdemar MCCLENDON DO, FAAFP Address: [address] [place] [address], [facility] [place], [place] [address] Telecom: Name: Nimisha Ramirez I Name: LisyChantelle REASON FOR VISIT (unrecogniz ed section and content) Specialty Diagnoses / Procedures Referred By Contac t Referred To Contact Diagnoses SDH (subdural hematoma) ([facility]) Felisa Segura MD [address] [address] [facility] [address] [place] [address] Referral ID Status Reason Start Date Expiration Date Visits Re quested Visits Authorized [id number] 1 1 Reason Comments Fall Dizziness Specialty Diagnoses / Procedures Referred By Contac t Referred To Contact Diagnoses Syncope and collapse SDH (subdural hematoma) ([facility]) David Herrera MD [address] [place] [address] [facility] [address] [place] [address] Referral ID Status Reason Start Date Expiration Date Visits Re quested Visits Authorized [id number] 1 1 Ordered Prescriptions (unrec ognized section [...] 5 MG immediate release tabletIndications:SDH (subdural hematoma) (HCC) Take 1 tablet by [...] RN)214 (Given - Provider: Jyotsna Martines RN) 0825 (Given - Provider: Linda Drake RN)2099 (Due) ibuprofen (ADVIL;MOTRIN) tablet 400 mg 400 mg, Oral, 4 TIMES DAILY WITH MEALS & NIGHTLY, First dose (after last modification) on Wed02/17/23 at 1700, Until Discontinued 0834 (Given - Provider: Chantelle Vega RN)1240 (Given - Provider: Chantelle Vega RN)171 (Given - Provider: Chantelle Vega RN)2058 (Given - Provider: Jyotsna Martines RN) 08 (Given - Provider: Chantelle Vega RN)1318 (Given - Provider: Chantelle Vega RN)172 (Given [...] 25 mg, Oral, DAILY, First dose on Wed02/14/23 at 0900, Until Discontinued 0834 (Given - [...] taste. 0834 (Given - Provider: Chantelle Vega RN)2059 (Given - Provider: Jyotsna Martines RN) 0813 (Given - Provider: Chantelle Vega RN)2144 (Given - Provider: Jyotsna Martines RN) 0824 [...] Medina RN)2229 (Stopped - Provider: Johanna Rosa, BHUMI) [...] Patient/family refused)0442 (Given - Provider: Johanna Rosa, BHUMI)1247 (Given - Provider: Lorena Soto RN)2200 (Due) [...] Santiago RN)2106 (Given - Provider: Harriet Medina, RN) 0440 (Given - Provider: Johanna Rosa, BHUMI)1252 (Given - Provider: Lorena Soto RN)2030 (Due) methocarbamol (ROBAXIN) tablet 750 mg 750 mg, Oral, EVERY 6 HOURS, First dose on Wed03/09/23 at 0430, Until Discontinued 0508 (Given - Provider: Pardeep Turner RN)1223 (Given - Provider: Brent De Santiago RN)1630 (Due)210 (Given - Provider: Harriet Medina, BHUMI) 0440 (Given - Provider: Johanna Rosa, BHUMI)0939 [...] BE BASED ON THE PRIMARY CLINICAL RECORDS. [employer] provides no warranty or guarantee of the accuracy or completeness of information in this document.
--- NOTE | 2025-06-06 08:40 | PM.CN ---
Consult Note: HPI Data of Consult Patient: known to practice within the last 3 years Consult date: 03/21/25 Requesting Physician: Isabella Ontiveros NP Primary Care Provider: AMY NICHOLSON Consult Narrative Reason for consult: left arm pain Narrative: 39yof who presents for assessment. continues to have significant burning pain into left arm. pain seems to have gotten slightly worse, painful to touch. she endorses color changes, temperature changes, increased sensitivity, swelling. has continued in a provider directed home exercise course >6 weeks, without significant benefit. uses lyrica 150mg TID, and states that although she does have some brain fog with it, her pain is much worse without it. pain today 9/10 pulling stabbing burning sharp pain. notes pain increased with lifting, touch, massage, activity, weather changes, sleep. mild improvement with ice. underwent left stellate ganglgion nerve block #1 and #2 with minimal relief. noticing improvement in ability to tolerate texture of compression sleeve and slight improvement in mobility per PT. cc:: CC: Isabella Ontiveros NP Review of Systems ROS Status of ROS 10 or more systems reviewed and unremarkable except as noted in history and below [facility] Medical History (Updated 05/20/25 @ 16:15 by Reji Hughes MD) Low back pain ?M54.50 - Low back pain, unspecified (ICD-10) Heartburn ?R12 - Heartburn (ICD-10) Acid reflux ?K21.9 - Gastro-esophageal reflux disease without esophagitis (ICD-10) Hypoglycemia ?E16.2 - Hypoglycemia, unspecified (ICD-10) Asthma ?J45.909 - Unspecified asthma, uncomplicated (ICD-10) Sleep apnea ?G47.30 - Sleep apnea, unspecified (ICD-10) Irregular heart beat ?I49.9 - Cardiac arrhythmia, unspecified (ICD-10) Surgical History (Updated 02/27/25 @ 15:34 by Sabrina Pisano) H/O tubal ligation ?Z98.51 - Tubal ligation status (ICD-10) H/O: section ?Z98.891 - History of uterine scar from previous surgery (ICD-10) History of tonsillectomy and adenoidectomy ?Z90.89 - Acquired absence of other organs (ICD-10) Social History Little interest or pleasure in doing things: not at all Feeling down, depressed, or hopeless: not at all Meds Home Medications and Allergies Home Medications ?Medication ?Instructions ?Recorded ?Confirmed ?Type acetaminophen 500 mg tablet 1,000 mg PO TID 03/08/23 05/28/25 History albuterol sulfate 90 mcg/actuation 2 inh inhalation Q4H PRN shortness 03/08/23 05/28/25 History aerosol inhaler of breath or wheezing dextroamphetamine-amphetamine 30 30 mg PO BID 03/08/23 05/28/25 History mg tablet methocarbamol 500 mg tablet 500 mg PO Q6H PRN spasms 03/08/23 05/28/25 History buspirone 5 mg tablet 5 mg PO TID 09/25/24 05/28/25 History escitalopram oxalate 20 mg tablet 20 mg PO DAILY 09/25/24 05/28/25 History (Lexapro) fluticasone propionate 50 intranasal 09/25/24 History mcg/actuation nasal spray,suspension topiramate 100 mg tablet (Topamax) 100 mg PO DAILY 09/25/24 05/28/25 History pregabalin 150 mg capsule (Lyrica) 150 mg PO TID #90 caps 02/28/25 05/28/25 Rx Allergies Allergy/AdvReac Type Severity Reaction Status Date / Time No Known Drug Allergies Allergy Verified 05/20/25 13:56 Exam Narrative Exam Narrative: Psych-alert and oriented x 3.? Attentive and appropriate, constitutionally normal, displays normal mood and affect per situation.? There are no obvious deficits in memory, reasoning, or intellect. Examination of the left upper extremity reveals notable hyperpathia and allodynia.?worsening trophic changes in fingernails, loss of nails on fourth and fifth digit Notable atrophy and diffuse weakness present in the extremity.? There is reported shiny skin with hair loss and abnormal hair growth denoting trophic changes presently.? reported Asymmetric color and temperature changes are present which denotes sudomotor changes.? Decreased range of motion and strength is noted in the extremity.? Coordination remains intact.? Gait remains non-antalgic. Assessment and Plan Assessment and Plan (1) Reflex sympathetic dystrophy of left upper extremity: (2) Nondisplaced comminuted fracture of shaft of ulna, left arm, initial encounter for closed fracture: Plan 39yof who presents for assessment. failed conservative measures, as noted. medication reviewed, no changes. as patient has failed to benefit from tylenol, motrin, heat, ice, topamax, lyrica, robaxin, naproxen, PT and OT >6 weeks, heat/ice, and failed left stellate ganlgion block x2 we recommend pt undergo scs trial under fluoroscopy with mac sedation for reflex sympathetic dystrophy of left upper extremety. we have explained the procedure, risks vs benefits, and all questions were answered. pt will complete independent psychiatric evaluation and notify our office once this is complete. scs trial duration of 7 days, intent to refer out for scs implant due to complexity. will also trial transdermal therapeutics cream 6a for RSD to be utilized 3-4x daily to affected areas, further instructions and transdermal therapeutics contact information provided to the pt.
== END 2025-06-06 08:04 | disposition home or self-care (01) ==
LOC: PM 08:07
PROVIDERS: PCP Family Medicine; Visit Provider Nurse Practitioner
DX: G90.512 Complex regional pain syndrome I of left upper limb (principal); S52.255A Nondisplaced comminuted fracture of shaft of ulna, left arm, initial encounter for closed fracture
CPT/HCPCS: G0463